=== PATIENT | female | born 1990 | race Caucasian/White ===

== ENCOUNTER → 2018-06-09 | Outpatient (CLI) | payer OTHER, SELFPAY ==
[2018-06-09 09:38] VITALS: BMI 25.4
[2018-06-15 17:57] LABS: HPV Reflexed? NOT INDICATED
== END | disposition home or self-care (01) ==
LOC: LABSPEC 16:24
PROVIDERS: Family Provider Family Medicine Sports Medicine; PCP Family Medicine Sports Medicine; Referring Provider Nurse Practitioner Women's Health; Visit Provider Nurse Practitioner Women's Health
DX: Z12.4 Encounter for screening for malignant neoplasm of cervix (principal)
CPT/HCPCS: 87624; 88175; G0145

== ENCOUNTER → 2019-07-14 12:18 | Outpatient (CLI) | payer OTHER, SELFPAY ==
[2019-07-14 11:55] VITALS: BMI 25.4
[2019-07-14 13:28] LABS: Absolute Lymphocyte Count 2.08 X10^3/uL (0.83-4.51); Absolute Neutrophil Count 5.1 X10^3/uL (2.0-7.7); Basophil# 0.04 X10^3/uL; Basophil% 0.5 % (0-1); Eosinophil# 0.08 X10^3/uL; Hematocrit 44.3 % (37-47); Hemoglobin 14.6 g/dL (12.0-15.0); Lymphocyte # 2.08 X10^3/ul (4.0); Lymphocyte % 26.7 % (19-41); Mean Corpuscular Volume 91.2 fL (81-99); Mean Platelet Vol. 12.6 fl (6.2-12.0); Monocyte# 0.51 X10^3/uL; Monocyte% 6.5 % (0-10); NRBC Flagged by Analyzer 0 % (0-5); Neutrophil # 5.07 X10^3/uL (2.7-7.7); Platelet Count 198 K/mm3 (150-450); RBC Distribution Width CV 12.1 % (11.6-14.6); Red Blood Count 4.86 M/mm3 (4.2-5.4); White Blood Count 7.8 K/mm3 (4.4-11.0)
[2019-07-14 13:53] LABS: Estradiol 78.2 pg/mL; Follicle Stimulating Hormone 6.2 mIU/mL; Prolactin 7.4 ng/mL
[2019-07-19] LABS: Testosterone Free 2.4 pg/mL (0.0-4.2)
[2019-07-21 12:12] LABS: 17-Hydroxyprogesterone 163 ng/dL (.)
== END ==
PROVIDERS: PCP Family Medicine Sports Medicine; Referring Provider Nurse Practitioner Women's Health; Visit Provider Nurse Practitioner Women's Health
DX: L68.0 Hirsutism (principal); N92.6 Irregular menstruation, unspecified
CPT/HCPCS: 36415; 82627; 82670; 83001; 83498; 84146; 84402; 84443; 85025; 82626

== ENCOUNTER → 2019-07-19 13:39 | Outpatient (CLI) | payer OTHER, SELFPAY ==
[2019-07-14 11:55] VITALS: BMI 25.4
--- NOTE | 2019-07-19 13:40 | US_ITS ---
STUDY: ULTRASOUND OF THE FEMALE PELVIS - COMPLETE REASON FOR EXAM: Female, 28 years old. IRREGULAR MENSES LMP: May 05, 2019. TECHNIQUE: Transabdominal and Transvaginal TECHNICAL QUALITY: Adequate. COMPARISON: None. FINDINGS: The uterus is anteverted and is in a midline position. The uterus measures 7.8 cm x 4.9 cm x 3.1 cm. There is a Nabothian cyst of the cervix. The endometrium measures 3.8 mm in thickness, and is hyperechoic. There is no demonstrated endometrial mass. There is no demonstrated myometrial mass. I.U.D. - The patient does not have an I.U.D. The right ovary is visualized. The right ovary measures 4.8 cm x 3.5 cm x 2.8 cm. There is no right ovarian cyst or ovarian mass. There is no visualized right adnexal mass or complex lesion. There is normal arterial and normal venous vascularity. The left ovary is visualized. The left ovary measures 4.3 cm x 2.8 cm x 2.9 cm. There is no left ovarian cyst or ovarian mass. There is no visualized left adnexal mass or complex lesion. There is normal arterial and normal venous vascularity. There is no fluid in the cul-de-sac. The pre void volume of the bladder was 118 ml. Polycystic ovary disease: No. US/Pelvic (Non ) IMPRESSION: Normal female pelvis. Electronically Signed: Sulaiman Johnson, at 14:28 EDT , Service support ,
--- NOTE | 2019-07-19 13:40 | US_ITS ---
STUDY: ULTRASOUND OF THE FEMALE PELVIS - COMPLETE REASON FOR EXAM: Female, 28 years old. IRREGULAR MENSES LMP: May 05, 2019. TECHNIQUE: Transabdominal and Transvaginal TECHNICAL QUALITY: Adequate. COMPARISON: None. FINDINGS: The uterus is anteverted and is in a midline position. The uterus measures 7.8 cm x 4.9 cm x 3.1 cm. There is a Nabothian cyst of the cervix. The endometrium measures 3.8 mm in thickness, and is hyperechoic. There is no demonstrated endometrial mass. There is no demonstrated myometrial mass. I.U.D. - The patient does not have an I.U.D. The right ovary is visualized. The right ovary measures 4.8 cm x 3.5 cm x 2.8 cm. There is no right ovarian cyst or ovarian mass. There is no visualized right adnexal mass or complex lesion. There is normal arterial and normal venous vascularity. The left ovary is visualized. The left ovary measures 4.3 cm x 2.8 cm x 2.9 cm. There is no left ovarian cyst or ovarian mass. There is no visualized left adnexal mass or complex lesion. There is normal arterial and normal venous vascularity. There is no fluid in the cul-de-sac. The pre void volume of the bladder was 118 ml. Polycystic ovary disease: No. US/Transvaginal Non- IMPRESSION: Normal female pelvis. Electronically Signed: Sulaiman Johnson, at 14:28 EDT , Service support ,
== END ==
PROVIDERS: PCP Family Medicine Sports Medicine; Referring Provider Nurse Practitioner Women's Health; Visit Provider Nurse Practitioner Women's Health
DX: N92.6 Irregular menstruation, unspecified (principal); L68.0 Hirsutism
CPT/HCPCS: 76830; 76856

== ENCOUNTER → 2019-08-15 10:21 | Outpatient (CLI) | payer OTHER, SELFPAY ==
[2019-07-14 11:55] VITALS: BMI 25.4
[2019-08-15 10:52] LABS: Absolute Neutrophil Count 5.5 X10^3/uL (2.0-7.7); Basophil# 0.04 X10^3/uL; Basophil% 0.5 % (0-1); Eosinophil# 0.08 X10^3/uL; Eosinophils% 0.9 % (0-5); Hematocrit 41.8 % (37-47); Hemoglobin 13.5 g/dL (12.0-15.0); Mean Corp Hgb Conc 32.3 g/dL (32-36); Mean Corpuscular Volume 92.9 fL (81-99); Mean Platelet Vol. 12.5 fl (6.2-12.0); Monocyte# 0.46 X10^3/uL; Monocyte% 5.3 % (0-10); NRBC Flagged by Analyzer 0 % (0-5); Neutrophil # 5.48 X10^3/uL (2.7-7.7); Neutrophil % 63.1 % (47-70); Platelet Count 180 K/mm3 (150-450); RBC Distribution Width CV 11.9 % (11.6-14.6); RBC Distribution Width SD 40.3 fl (35.1-43.9); White Blood Count 8.7 K/mm3 (4.4-11.0)
[2019-08-15 11:08] LABS: Thyroid Stim Hormone (TSH) 1.56 uIU/mL (0.358-3.74)
== END ==
PROVIDERS: PCP Family Medicine Sports Medicine; Referring Provider Obstetrics & Gynecology; Visit Provider Obstetrics & Gynecology
DX: N92.1 Excessive and frequent menstruation with irregular cycle (principal)
CPT/HCPCS: 36415; 84443; 85025

== ENCOUNTER → 2020-06-13 13:47 | Outpatient (CLI) | payer OTHER, SELFPAY ==
[2020-06-13 13:11] VITALS: BMI 27.8
[2020-06-13 13:59] LABS: Absolute Lymphocyte Count 2.47 X10^3/uL (0.83-4.51); Absolute Neutrophil Count 4.9 X10^3/uL (2.0-7.7); Basophil# 0.05 X10^3/uL; Basophil% 0.6 % (0-1); Eosinophil# 0.07 X10^3/uL; Eosinophils% 0.9 % (0-5); Hematocrit 42.5 % (37-47); Hemoglobin 13.7 g/dL (12.0-15.0); Lymphocyte # 2.47 X10^3/ul (0.83-4.51); Lymphocyte % 30.8 % (19-41); Mean Corp Hgb Conc 32.2 g/dL (32-36); Mean Corpuscular Hgb 29.3 pg (27.0-32.0); Mean Platelet Vol. 12.4 fl (6.2-12.0); Monocyte# 0.54 X10^3/uL; Monocyte% 6.7 % (0-10); NRBC Flagged by Analyzer 0 % (0-5); Neutrophil # 4.85 X10^3/uL (2.7-7.7); Neutrophil % 60.6 % (47-70); POSITIVE MORPHOLOGY YES; Platelet Count 149 K/mm3 (150-450); RBC Distribution Width CV 12.1 % (11.6-14.6); Red Blood Count 4.67 M/mm3 (4.2-5.4)
[2020-06-13 14:01] LABS: Differential Indicated SCAN CRITERIA MET
== END ==
PROVIDERS: PCP Family Medicine Sports Medicine; Referring Provider Nurse Practitioner Women's Health; Visit Provider Nurse Practitioner Women's Health
DX: N93.9 Abnormal uterine and vaginal bleeding, unspecified (principal)
CPT/HCPCS: 36415; 85025

== ENCOUNTER → 2020-06-19 15:47 | Outpatient (CLI) | payer OTHER, SELFPAY ==
[2020-06-13 13:11] VITALS: BMI 27.8
--- NOTE | 2020-06-19 15:51 | US_ITS ---
STUDY: ULTRASOUND OF THE FEMALE PELVIS - COMPLETE REASON FOR EXAM: Female, 29 years old. bleeding-ABN HX PCOS LMP: 06/04/2020 TECHNIQUE: Transabdominal and endovaginal TECHNICAL QUALITY: Adequate. COMPARISON: None. FINDINGS: The uterus is anteverted and is in a midline position. The uterus measures 8.6 x 5.2 x 3.0 cm. Nabothian cyst at the uterine cervix. The endometrium measures 4 mm in thickness, and is hyperechoic. There is no demonstrated endometrial mass. There is no demonstrated myometrial mass. The patient does not have an I.U.D. The right ovary is visualized. The right ovary measures 3.6 x 3.2 x 1.7 cm. There is no right ovarian cyst or ovarian mass. There is no visualized right adnexal mass or complex lesion. There is normal arterial and normal venous vascularity. The left ovary is visualized. The left ovary measures 3.7 x 2.9 x 1.9 cm. There is no left ovarian cyst or ovarian mass. There is no visualized left adnexal mass or complex lesion. There is normal arterial and normal venous vascularity. There is no fluid in the cul-de-sac. The pre void volume of the bladder was 436 ml. US/Pelvic (Non ) IMPRESSION: Normal female pelvis. Electronically Signed: Martinez Vazquez DO at 23:28 EDT Tel [phone], Service support ,
--- NOTE | 2020-06-19 15:51 | US_ITS ---
STUDY: ULTRASOUND OF THE FEMALE PELVIS - COMPLETE REASON FOR EXAM: Female, 29 years old. bleeding-ABN HX PCOS LMP: 06/04/2020 TECHNIQUE: Transabdominal and endovaginal TECHNICAL QUALITY: Adequate. COMPARISON: None. FINDINGS: The uterus is anteverted and is in a midline position. The uterus measures 8.6 x 5.2 x 3.0 cm. Nabothian cyst at the uterine cervix. The endometrium measures 4 mm in thickness, and is hyperechoic. There is no demonstrated endometrial mass. There is no demonstrated myometrial mass. The patient does not have an I.U.D. The right ovary is visualized. The right ovary measures 3.6 x 3.2 x 1.7 cm. There is no right ovarian cyst or ovarian mass. There is no visualized right adnexal mass or complex lesion. There is normal arterial and normal venous vascularity. The left ovary is visualized. The left ovary measures 3.7 x 2.9 x 1.9 cm. There is no left ovarian cyst or ovarian mass. There is no visualized left adnexal mass or complex lesion. There is normal arterial and normal venous vascularity. There is no fluid in the cul-de-sac. The pre void volume of the bladder was 436 ml. US/Transvaginal Non- IMPRESSION: Normal female pelvis. Electronically Signed: Martinez Vazquez DO at 23:28 EDT Tel [phone], Service support ,
== END ==
PROVIDERS: PCP Family Medicine Sports Medicine; Referring Provider Nurse Practitioner Women's Health; Visit Provider Nurse Practitioner Women's Health
DX: N93.9 Abnormal uterine and vaginal bleeding, unspecified (principal)
CPT/HCPCS: 76830; 76856

== ENCOUNTER → 2020-08-13 11:53 | Outpatient (CLI) | payer OTHER, SELFPAY ==
[2020-08-01 08:12] VITALS: BMI 27.8
[2020-08-13 12:09] LABS: Absolute Lymphocyte Count 1.86 X10^3/uL (0.83-4.51); Absolute Neutrophil Count 6.1 X10^3/uL (2.0-7.7); Basophil# 0.04 X10^3/uL; Basophil% 0.5 % (0-1); Eosinophil# 0.05 X10^3/uL; Eosinophils% 0.6 % (0-5); Hematocrit 40.1 % (37-47); Hemoglobin 13.2 g/dL (12.0-15.0); Lymphocyte # 1.86 X10^3/ul (0.83-4.51); Lymphocyte % 21.5 % (19-41); Mean Corp Hgb Conc 32.9 g/dL (32-36); Mean Corpuscular Hgb 29.9 pg (27.0-32.0); Mean Corpuscular Volume 90.7 fL (81-99); Mean Platelet Vol. 11.2 fl (6.2-12.0); Monocyte# 0.55 X10^3/uL; Monocyte% 6.4 % (0-10); NRBC Flagged by Analyzer 0 % (0-5); Neutrophil # 6.11 X10^3/uL (2.7-7.7); Neutrophil % 70.5 % (47-70); POSITIVE MORPHOLOGY YES; Platelet Count 204 K/mm3 (150-450); RBC Distribution Width CV 12.6 % (11.6-14.6); RBC Distribution Width SD 41.8 fl (35.1-43.9); Red Blood Count 4.42 M/mm3 (4.2-5.4); White Blood Count 8.7 K/mm3 (4.4-11.0)
[2020-08-13 12:49] LABS: hCG Titer Quant., Serum 11684 mIU/mL (1-3)
[2020-08-13 13:05] LABS: Differential Indicated SCAN CRITERIA MET
== END ==
PROVIDERS: PCP Family Medicine Sports Medicine; Referring Provider Nurse Practitioner Women's Health; Visit Provider Nurse Practitioner Women's Health
DX: O46.90 Antepartum hemorrhage, unspecified, unspecified trimester (principal); Z3A.00 Weeks of gestation of pregnancy not specified
CPT/HCPCS: 36415; 84702; 85025

== ENCOUNTER → 2020-08-15 12:51 | Outpatient (CLI) | payer OTHER, SELFPAY ==
[2020-08-01 08:12] VITALS: BMI 27.8
--- NOTE | 2020-08-15 12:52 | US_ITS ---
STUDY: FIRST TRIMESTER OBSTETRICAL ULTRASOUND REASON FOR EXAM: Female, 29 years old dating LMP: 07/24/2020 TECHNIQUE: TECHNICAL QUALITY: Adequate. PRIOR ULTRASOUND: None. FINDINGS: There is intrauterine gestational sac with a tiny pole. The crown-rump length measures 0.7 cm, heartbeat is detected measures 120 BPM and this corresponds to about 6 weeks and 5 days. The total length of the uterus is 8.6 x 5.4 x 4.1 cm. The right ovary measures 3.8 x 3.5 x 1.7 cm the left ovary measures 3.6 x 2.2 x 2.3 cm US/Transvaginal w/Preg US IMPRESSION: Evidence of intrauterine gestational sac with a small pole (live) as mentioned. There is some discrepancy between the ultrasound measurement and the LMP. Continuous follow-up. Electronically Signed: Marcus Wills, at 8:30 EDT Tel , Service support ,
== END ==
PROVIDERS: PCP Family Medicine Sports Medicine; Referring Provider Nurse Practitioner Women's Health; Visit Provider Nurse Practitioner Women's Health
DX: Z34.90 Encounter for supervision of normal pregnancy, unspecified, unspecified trimester (principal)
CPT/HCPCS: 76817

== ENCOUNTER → 2020-08-28 15:45 | Outpatient (CLI) | payer OTHER, SELFPAY ==
[2020-08-28 15:10] VITALS: BMI 27.8
[2020-08-28 16:20] LABS: Absolute Lymphocyte Count 2.46 X10^3/uL (0.83-4.51); Basophil# 0.03 X10^3/uL; Basophil% 0.2 % (0-1); Eosinophil# 0.06 X10^3/uL; Eosinophils% 0.4 % (0-5); Hematocrit 39.6 % (37-47); Hemoglobin 13.4 g/dL (12.0-15.0); Lymphocyte # 2.46 X10^3/ul (0.83-4.51); Lymphocyte % 18.3 % (19-41); Mean Corp Hgb Conc 33.8 g/dL (32-36); Mean Corpuscular Hgb 29.8 pg (27.0-32.0); Mean Corpuscular Volume 88.2 fL (81-99); Mean Platelet Vol. 12.7 fl (6.2-12.0); NRBC Flagged by Analyzer 0 % (0-5); Neutrophil # 10.02 X10^3/uL (2.7-7.7); Neutrophil % 74.7 % (47-70); Platelet Count 198 K/mm3 (150-450); Red Blood Count 4.49 M/mm3 (4.2-5.4); White Blood Count 13.4 K/mm3 (4.4-11.0)
[2020-08-29 08:56] LABS: HIV - WCH Non-Reactive (Nonreactive); Hepatitis B Surface Antigen Non-Reactive (Nonreactive); Hepatitis C Antibody Non-Reactive (Nonreactive); Rubella IgG Reactive (Nonreactive); Syphilis Antibodies Non-reactive
[2020-08-31 20:08] LABS: Chlamydia By Nucleic Acid AMP Negative (Negative)
[2020-08-31 20:34] LABS: Gonococcus By Nucleic Acid AMP Negative (Negative)
== END ==
PROVIDERS: PCP Family Medicine Sports Medicine; Referring Provider Obstetrics & Gynecology; Visit Provider Obstetrics & Gynecology
DX: Z34.90 Encounter for supervision of normal pregnancy, unspecified, unspecified trimester (principal)
CPT/HCPCS: 36415; 85025; 86703; 86762; 86780; 86803; 86850; 86900; 86901; 87340; 87491; 87591

== ENCOUNTER → 2020-11-05 14:04 | Outpatient (CLI) | payer OTHER, SELFPAY ==
[2020-11-05 14:08] VITALS: PULSE 86; RESP 16; TEMP 36.4; O2SAT 100; BMI 25.2
[2020-11-05] MEDS: Ondansetron 4 MG/2 ML Vial IV (14:42)
[2020-11-05] MEDS: Dextrose 5%-Lactated Ringers 1,000 ML 999 ML IV (14:42)
[2020-11-05 15:59] VITALS: BP 124/67; PULSE 72
== END ==
PROVIDERS: PCP Family Medicine Sports Medicine; Referring Provider Obstetrics & Gynecology; Visit Provider Obstetrics & Gynecology
DX: E86.0 Dehydration (principal)
CPT/HCPCS: 96361; 96374; J2405

== ENCOUNTER 2020-11-06 09:15 | Emergency (ER) | payer OTHER, SELFPAY ==
[2020-11-06 09:16] VITALS: BP 116/70; PULSE 89; RESP 18; TEMP 37; O2SAT 100; BMI 25.2
--- NOTE | 2020-11-06 09:40 | EDS_ITS ---
HPI History of Present Illness Chief Complaint: Nausea/Vomiting/Diarrhea Narrative Narrative: 29-year-old female currently 17 weeks presenting with nausea, vomiting, diarrhea. She states this has been a problem since Thursday. Patient also states she has developed a slight cough. 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 She has not had a fever or shortness of breath. She denies chest pain or abdominal pain. She has no dysuria but states that she has urinary frequency. Patient was given IV fluids and Zofran yesterday as an outpatient and she states she does not feel any different. She denies any vaginal bleeding or loss of fluid. Patient states she scheduled for an ult rasound this week. [facility] Medical History PCOS (polycystic ovarian syndrome) Home Medications prenat.vits,azar,zhe-yirg-[id number] 1 tab PO DAILY 08/21/20 [History Last Taken Unknown] Allergy/AdvReac Type Severity Reaction Status Date / Time No Known Allergies Allergy Verified 11/06/20 09:20 Family History Father Diabetes Mother Hypertension Grandfather Cancer bladder Surgical History H/O oral surgery Social History adopted: No household members: spouse number of children: 0 current occupational status: employed current occupation: [employer] pets and animals: Yes pets and animals: dog(s) Smoking Status: Never smoker alcohol intake: current alcohol intake frequency: holidays/special occasions only details: none with substance use type: does not use caffeine: No what type of physical activity do you participate in: walking, running and weight training seatbelt use: always do you feel safe at home: Yes additional social history: [employer] 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 ROS ROS ED Constitutional Constitutional ED: Denies chills or fever(s) Eyes Eyes: Denies blurry vision or change in vision ENT ENT ED: Denies rhinorrhea or sore throat Cardiovascular Cardiovascular: Denies chest pain or palpitations Respiratory/Chest Respiratory/Chest: Reports cough; Denies dyspnea or sputum Gastrointestinal Gastrointestinal: Reports diarrhea, nausea and vomiting; Denies abdominal pain Genitourinary Genitourinary ED: Reports urinary frequency; Denies dysuria Musculoskeletal Musculoskeletal: Denies arthralgias or myalgias Integumentary Denies abscess or rash Neurologic Neurologic: Denies headache(s) or paresthesias EXAM Physical Exam Const Vital Signs: 11/06/20 09:16 11/06/20 12:46 Temperature 98.6 F Temperature Source Oral Pulse Rate 89 64 Respiratory Rate 18 18 Blood Pressure 116/70 107/71 Blood Pressure Mean 85 83 Pulse Ox 100 100 Oxygen Delivery Method Room Air Room Air Positive well nourished General Appearance ED: NAD; Negative for pallor HEENT Reports moist mucous membranes Negative for trauma Eyes PERRL and EOMs intact bilaterally Neck no lymphadenopathy and supple Resp normal respiratory effort and clear to auscultation bilaterally GI normal to inspection, nondistended, normoactive bowel sounds Neuro oriented x3 and CN's II-XII intact bilaterally Sensorium / Orientation: alert Psych mental status grossly normal Skin no rashes or lesions noted and no wounds General Skin Exam: Negative for jaundice or pallor MDM MDM MDM Narrative Medical decision making narrative: Patient presenting with nausea and vomiting. She is currently 17 months . She was concerned about diarrhea as well. She was tested for Covid and this was negative. Urinalysis was negative for infection. Patient has no leukocytosis. I did bring to her attention that her hemoglobin was slightly lower than previous 11.5. She stated at that time the time of her last blood work was when she was having some vaginal bleeding. She does not have this issue today. Patient is given IV fluids and Phenergan. She states it has not really helped her nausea but she is hungry now. Bedside ultrasound performed by ED physician shows good movement and a heart rate of 160. Feel patient is safe to be discharged home. She is given return precautions. Impression: 1. Hyperemesis gravidarum Lab Data Labs: Laboratory Results - last 24 hr 11/06/20 11/06/20 11/06/20 09:56 10:00 10:30 WBC 6.7 RBC 3.78 L Hgb 11.5 L Hct 34.2 L MCV 90.5 MCH 30.4 MCHC 33.6 RDW Std Deviation 41.9 RDW Coeff of Sukhjinder 12.8 Plt Count 146 L MPV 12.6 H Immature Gran % (Auto) 0.600 Neut % (Auto) 74.8 H Lymph % (Auto) 14.9 L [place] % (Auto) 9.1 Eos % (Auto) 0.3 Baso % (Auto) 0.3 Absolute Neuts (auto) 5.0 Absolute Lymphs (auto) 1.00 Nucleated RBC % 0 Sodium Potassium Chloride Carbon Dioxide Anion Gap BUN Creatinine Estim Creat Clear Calc Est GFR (MDRD) Af Amer Est GFR (MDRD) Non-Af BUN/Creatinine Ratio Glucose Calcium Total Bilirubin AST ALT Alkaline Phosphatase Total Protein Albumin Globulin Albumin/Globulin Ratio Urine Color Yellow Urine Clarity Sl. Cloudy Urine pH 6.0 Ur Specific [place] 1.025 Urine Protein 30 H Urine Glucose (UA) Normal Urine Ketones 5 H Urine Occult Blood Negative Urine Nitrite Negative Urine Bilirubin Negative Urine Urobilinogen Normal Ur Leukocyte Esterase 100 H COVID-19 (JOVITA) Not Detected 11/06/20 10:30 WBC RBC Hgb Hct MCV MCH MCHC RDW Std Deviation RDW Coeff of Sukhjinder Plt Count MPV Immature Gran % (Auto) Neut % (Auto) Lymph % (Auto) [facility] % (Auto) Eos % (Auto) Baso % (Auto) Absolute Neuts (auto) Absolute Lymphs (auto) Nucleated RBC % Sodium 139 Potassium 3.6 Chloride 107 Carbon Dioxide 23.0 Anion Gap 9 BUN 4 L Creatinine 0.58 Estim Creat Clear Calc 114.21 Est GFR (MDRD) Af Amer 159 Est GFR (MDRD) Non-Af 132 BUN/Creatinine Ratio 6.9 L Glucose 81 Calcium 8.7 Total Bilirubin 0.30 AST 14 L ALT 17 Alkaline Phosphatase 65 Total Protein 6.8 Albumin 2.7 L Globulin 4.1 Albumin/Globulin Ratio 0.7 L Urine Color Urine Clarity Urine pH Ur Specific [place] Urine Protein Urine Glucose (UA) Urine Ketones Urine Occult Blood Urine Nitrite Urine Bilirubin Urine Urobilinogen Ur Leukocyte Esterase COVID-19 (JOVITA) Discharge Plan Triage Chief Complaint: Nausea/Vomiting/Diarrhea ED Provider: Abisai Pringle Dx/Rx/DC Orders Instructions: Anemia During , ED Hyperemesis Gravidarum Prescriptions: No Action prenat.vits,azar,iom-yvxo-eifwp Tablet 1 tab PO DAILY RF: 0 Primary Care Provider: Polina Oconnell Referrals: Polina Oconnell MD [Primary Care Provider] - Disposition Disposition: Home, Self Care Discharge Date/Time: 11/06/20 12:48
[2020-11-06 10:19] LABS: Color, Urine Yellow (Yellow); Glucose, Dipstick Normal (Normal); Ketone-Dipstick 5 mg/dl (Negative); Leukocyte Esterase-Dipstick 100 /ul (Negative); Nitrite-Dipstick Negative (Negative); Occult Blood-Urine Negative /ul (Negative); Protein-Dipstick 30 mg/dl (Negative); Specific Gravity, Urine 1.025 (1.002-1.030); Urine Bilirubin Dipstick Negative (Negative); Urine Clarity Sl. Cloudy (Clear); Urine Urobilinogen Normal (Normal)
[2020-11-06] MEDS: 0.9% Normal Saline 1,000 ML 1000 ML IV (10:32)
[2020-11-06] MEDS: proMETHazine 25 MG/ML Syringe 12.5 MG IM (10:32)
[2020-11-06 10:45] LABS: Basophil# 0.02 X10^3/uL; Basophil% 0.3 % (0-1); Eosinophil# 0.02 X10^3/uL; Eosinophils% 0.3 % (0-5); Hematocrit 34.2 % (37-47); Hemoglobin 11.5 g/dL (12.0-15.0); Lymphocyte % 14.9 % (19-41); Mean Corp Hgb Conc 33.6 g/dL (32-36); Mean Corpuscular Hgb 30.4 pg (27.0-32.0); Mean Corpuscular Volume 90.5 fL (81-99); Mean Platelet Vol. 12.6 fl (6.2-12.0); Monocyte# 0.61 X10^3/uL; Monocyte% 9.1 % (0-10); NRBC Flagged by Analyzer 0 % (0-5); Neutrophil # 5.01 X10^3/uL (2.7-7.7); Neutrophil % 74.8 % (47-70); Platelet Count 146 K/mm3 (150-450); RBC Distribution Width CV 12.8 % (11.6-14.6); RBC Distribution Width SD 41.9 fl (35.1-43.9); Red Blood Count 3.78 M/mm3 (4.2-5.4); White Blood Count 6.7 K/mm3 (4.4-11.0)
[2020-11-06 11:01] LABS: ALB/GLOB Ratio 0.7 RATIO (0.9-2.4); AST(SGOT) 14 U/L (15-37); Alanine Aminotransfer ALT/SGPT 17 U/L (13-56); Albumin, Serum 2.7 g/dL (3.2-5.0); Alkaline Phosphatase 65 U/L (45-117); Anion Gap 9 (5-15); BUN 4 mg/dL (7-18); BUN/Creat Ratio 6.9 RATIO (10-20); Calcium,Total 8.7 mg/dL (8.5-10.1); Chloride 107 mmol/L (98-107); Creatinine, Serum 0.58 mg/dL (0.55-1.02); EST Glomerular Filtration Rate 132 mL/min (>60); Est Glom Filt Rate - Afr Amer 159 mL/min (>60); Estimated Creatinine Clearance 114.21 ml/min; Globulin 4.1 g/dL (2.2-4.2); Glucose 81 mg/dL (74-106); Potassium 3.6 mmol/L (3.5-5.1); Protein, Total 6.8 g/dL (6.4-8.2); Sodium Level 139 mmol/L (136-145)
[2020-11-06 12:46] VITALS: BP 107/71; PULSE 64; RESP 18; O2SAT 100
== END 2020-11-06 12:48 | disposition home or self-care (01) ==
PROVIDERS: Emergency Provider Student in an Organized Health Care Education/Training Program; PCP Family Medicine Sports Medicine
DX: O21.0 Mild hyperemesis gravidarum (principal); Z3A.17 17 weeks gestation of pregnancy
CPT/HCPCS: 80053; 81002; 85025; 87635; 96360; 96361; 96372; 99284; J7030; U0005; A4216; U0003

== ENCOUNTER → 2021-01-21 09:52 | Outpatient (CLI) | payer OTHER, SELFPAY ==
[2021-01-21 10:28] LABS: Absolute Lymphocyte Count 2.11 X10^3/uL (0.83-4.51); Absolute Neutrophil Count 8.6 X10^3/uL (2.0-7.7); Basophil# 0.03 X10^3/uL; Basophil% 0.3 % (0-1); Eosinophil# 0.06 X10^3/uL; Eosinophils% 0.5 % (0-5); Hematocrit 32.9 % (37-47); Hemoglobin 10.9 g/dL (12.0-15.0); Lymphocyte # 2.11 X10^3/ul (0.83-4.51); Lymphocyte % 18.4 % (19-41); Mean Corp Hgb Conc 33.1 g/dL (32-36); Mean Corpuscular Hgb 29.6 pg (27.0-32.0); Mean Corpuscular Volume 89.4 fL (81-99); Monocyte# 0.63 X10^3/uL; Monocyte% 5.5 % (0-10); NRBC Flagged by Analyzer 0 % (0-5); Neutrophil # 8.59 X10^3/uL (2.7-7.7); Neutrophil % 74.7 % (47-70); Platelet Count 158 K/mm3 (150-450); RBC Distribution Width CV 12.4 % (11.6-14.6); RBC Distribution Width SD 40.2 fl (35.1-43.9); Red Blood Count 3.68 M/mm3 (4.2-5.4); White Blood Count 11.5 K/mm3 (4.4-11.0)
[2021-01-21 10:55] LABS: Glucose Challenge Gest 1H 50g 85 mg/dL (70-140)
== END ==
PROVIDERS: PCP Family Medicine Sports Medicine; Referring Provider Obstetrics & Gynecology; Visit Provider Obstetrics & Gynecology
DX: Z34.00 Encounter for supervision of normal first pregnancy, unspecified trimester (principal)
CPT/HCPCS: 36415; 82950; 85025

== ENCOUNTER 2021-02-18 10:32 | Outpatient (CLI) | payer OTHER, SELFPAY ==
[2021-02-18 11:06] VITALS: BMI 27.4
[2021-02-18 11:09] VITALS: BP 104/69; PULSE 88; PULSE 90; TEMP 37.2; O2SAT 98
[2021-02-18] MEDS: Dextrose 5%-Lactated Ringers 1,000 ML 999 ML IV (11:25)
[2021-02-18] MEDS: Ondansetron 4 MG/2 ML Vial IV (11:28)
[2021-02-18 11:37] LABS: Absolute Lymphocyte Count 0.59 X10^3/uL (0.83-4.51); Absolute Neutrophil Count 6.3 X10^3/uL (2.0-7.7); Basophil# 0.02 X10^3/uL; Basophil% 0.3 % (0-1); Eosinophil# 0.01 X10^3/uL; Eosinophils% 0.1 % (0-5); Hematocrit 31.8 % (37-47); Hemoglobin 10.6 g/dL (12.0-15.0); Lymphocyte # 0.59 X10^3/ul (0.83-4.51); Lymphocyte % 7.7 % (19-41); Mean Corp Hgb Conc 33.3 g/dL (32-36); Mean Corpuscular Hgb 29.4 pg (27.0-32.0); Mean Corpuscular Volume 88.1 fL (81-99); Mean Platelet Vol. 12.1 fl (6.2-12.0); Monocyte# 0.74 X10^3/uL; Monocyte% 9.6 % (0-10); NRBC Flagged by Analyzer 0 % (0-5); Neutrophil # 6.27 X10^3/uL (2.7-7.7); Neutrophil % 81.6 % (47-70); POSITIVE DIFFERENTIAL YES; Platelet Count 151 K/mm3 (150-450); RBC Distribution Width CV 12.2 % (11.6-14.6); RBC Distribution Width SD 39.8 fl (35.1-43.9); Red Blood Count 3.61 M/mm3 (4.2-5.4); White Blood Count 7.7 K/mm3 (4.4-11.0)
[2021-02-18 11:40] LABS: Differential Indicated SCAN CRITERIA MET
[2021-02-18 11:51] LABS: ALB/GLOB Ratio 0.5 RATIO (0.9-2.4); AST(SGOT) 21 U/L (15-37); Alanine Aminotransfer ALT/SGPT 20 U/L (13-56); Albumin, Serum 2.4 g/dL (3.2-5.0); Alkaline Phosphatase 122 U/L (45-117); Anion Gap 9 (5-15); BUN 6 mg/dL (7-18); BUN/Creat Ratio 11.9 RATIO (10-20); Calcium,Total 8.8 mg/dL (8.5-10.1); Chloride 105 mmol/L (98-107); EST Glomerular Filtration Rate 153 mL/min (>60); Est Glom Filt Rate - Afr Amer 185 mL/min (>60); Globulin 4.4 g/dL (2.2-4.2); Glucose 74 mg/dL (74-106); Lipase 101 U/L (73-393); Potassium 3.6 mmol/L (3.5-5.1); Protein, Total 6.8 g/dL (6.4-8.2); Sodium Level 136 mmol/L (136-145)
--- NOTE | 2021-02-18 12:30 | NURSING ---
Dr. Lockhart on unit. Aware of lab work results. Notified of Covid positive status. Reviewed FHR strip. Urine specimen has not been collected as patient has not voided. Has taken sips of water and ice chips with no vomiting. Dr. Lockhart would like to see patient tolerating po fluids before sending patient home. Would like patient to start taking one baby aspirin daily until delivery. Patient notified and expresses understanding.
[2021-02-18] MEDS: Lactated Ringers 1,000 ML 200 ML IV (12:34)
[2021-02-18 12:46] LABS: Platelet Estimate ADEQUATE (ADEQ); Red Cell Morphology NORM C+C NORMAL (NORM C&C)
--- NOTE | 2021-02-18 13:27 | OB.TRI.PN_ITS ---
Progress Notes Progress Note: Patient presents for triage evaluation secondary to nausea vomiting, now covid positive FHT: 140 Moderate variability reactive no decelerations category I tracing [place]: no regular Contractions Assessment and plan: covid in , IVFs anti emetics given, tolerating po, dc home on zofran and 81mg asa Reactive NST, reassuring maternal and status patient discharged to home to follow-up as scheduled. See problem list details for additional plan information. Laboratory Studies: Laboratory Tests 02/18/21 02/18/21 Range/Units 11:25 11:25 WBC 7.7 (4.4-11.0) K/mm3 RBC 3.61 L (4.2-5.4) M/mm3 Hgb 10.6 L (12.0-15.0) g/dL Hct 31.8 L (37-47) % MCV 88.1 (81-99) fL MCH 29.4 (27.0-32.0) pg MCHC 33.3 (32-36) g/dL RDW Std Deviation 39.8 (35.1-43.9) fl RDW Coeff of Sukhjinder 12.2 (11.6-14.6) % Plt Count 151 (150-450) K/mm3 MPV 12.1 H (6.2-12.0) fl Immature Gran % (Auto) 0.700 (0.0-0.9) % Neut % (Auto) 81.6 H (47-70) % Lymph % (Auto) 7.7 L (19-41) % [place] % (Auto) 9.6 (0-10) % Eos % (Auto) 0.1 (0-5) % Baso % (Auto) 0.3 (0-1) % Absolute Neuts (auto) 6.3 (2.0-7.7) X10^3/uL Absolute Lymphs (auto) 0.59 L (0.83-4.51) X10^3/uL Nucleated RBC % 0 (0-5) % Differential Comment Platelet Estimate ADEQUATE (ADEQ) RBC Morphology NORM C+C (NORM C&C) NORMAL Sodium 136 (136-145) mmol/L Potassium 3.6 (3.5-5.1) mmol/L Chloride 105 (98-107) mmol/L Carbon Dioxide 22.0 (21.0-32.0) mmol/L Anion Gap 9 (5-15) BUN 6 L (7-18) mg/dL Creatinine 0.50 L (0.55-1.02) mg/dL Estim Creat Clear Calc 131.30 ml/min Est GFR (MDRD) Af Amer 185 (>60) mL/min Est GFR (MDRD) Non-Af 153 (>60) mL/min BUN/Creatinine Ratio 11.9 (10-20) RATIO Glucose 74 (74-106) mg/dL Calcium 8.8 (8.5-10.1) mg/dL Total Bilirubin 0.20 (0.20-1.00) mg/dL AST 21 (15-37) U/L ALT 20 (13-56) U/L Alkaline Phosphatase 122 H (45-117) U/L Total Protein 6.8 (6.4-8.2) g/dL Albumin 2.4 L (3.2-5.0) g/dL Globulin 4.4 H (2.2-4.2) g/dL Albumin/Globulin Ratio 0.5 L (0.9-2.4) RATIO Lipase 101 (73-393) U/L Charges/Coding Procedures Urinary/Genital [id number]: [id number] non-stress test Interp Assessment & Plan (1) COVID-19 affecting , antepartum: COMMENT: seen in triage, IVFs given, ordered zofran. plan 81 mg asa in , growth q 4 weeks.
[2021-02-18] MEDS: proCHLORPERazine 10 MG/2 ML Vial IV (13:47)
[2021-02-18 13:53] LABS: Mucous, Urine 0 SEEN /hpf (<or=2+); Red Blood Cells-Urine 0 SEEN /hpf (0-5)
[2021-02-18 14:00] LABS: Color, Urine Yellow (Yellow); Glucose, Dipstick 1000 mg/dl (Normal); Leukocyte Esterase-Dipstick 100 /ul (Negative); Nitrite-Dipstick Negative (Negative); Occult Blood-Urine Negative /ul (Negative); Protein-Dipstick 15 mg/dl (Negative); Urine Bilirubin Dipstick Negative (Negative); Urine Clarity Sl. Cloudy (Clear); Urine Urobilinogen Normal (Normal); Urine pH 6.5 (5.0 - 8.0)
[2021-02-18 14:07] LABS: Ketone-Dipstick 150 mg/dl (Negative)
[2021-02-18 14:08] LABS: Bacteria 2+ /hpf (None Seen); Squamous Epithelial Cells - UA 0-5 SEEN /hpf (5-10); White Blood Cells 10-25 SEEN /hpf (0-5)
--- NOTE | 2021-02-18 14:37 | NURSING ---
Message left with RN for Dr. Lockhart notifying her of abnormal urine levels. Awaiting call back for further orders.
--- NOTE | 2021-02-18 14:41 | MDS.RN ---
Patient in isolation for COVID. No reading for negative air pressure available. Marco was notified and set up ventilation system in room.
== END 2021-02-18 16:27 | disposition home or self-care (01) ==
LOC: WPOUT 11:03 → WP 11:04
PROVIDERS: PCP Family Medicine Sports Medicine; Referring Provider Obstetrics & Gynecology; Visit Provider Obstetrics & Gynecology
DX: O98.519 Other viral diseases complicating pregnancy, unspecified trimester (principal); U07.1 COVID-19
CPT/HCPCS: 96361; 96374; 96375; 36415; 59025; 59050; 80053; 81001; 83690; 85025; 87086; 87088; 87426; 87635; 99218; J7120; U0005; G0378; J2405; U0003

== ENCOUNTER 2021-02-28 14:22 | Outpatient (CLI) | payer OTHER, SELFPAY ==
[2021-02-28 15:01] LABS: Absolute Lymphocyte Count 1.96 X10^3/uL (0.83-4.51); Absolute Neutrophil Count 8.2 X10^3/uL (2.0-7.7); Basophil# 0.03 X10^3/uL; Basophil% 0.3 % (0-1); Eosinophil# 0.06 X10^3/uL; Eosinophils% 0.5 % (0-5); Hematocrit 34.5 % (37-47); Hemoglobin 11.5 g/dL (12.0-15.0); Lymphocyte # 1.96 X10^3/ul (0.83-4.51); Lymphocyte % 17.7 % (19-41); Mean Corp Hgb Conc 33.3 g/dL (32-36); Mean Corpuscular Hgb 28.8 pg (27.0-32.0); Mean Corpuscular Volume 86.5 fL (81-99); Mean Platelet Vol. 12.3 fl (6.2-12.0); Monocyte# 0.69 X10^3/uL; Monocyte% 6.2 % (0-10); NRBC Flagged by Analyzer 0 % (0-5); Neutrophil # 8.21 X10^3/uL (2.7-7.7); Neutrophil % 74.3 % (47-70); POSITIVE MORPHOLOGY YES; Platelet Count 156 K/mm3 (150-450); RBC Distribution Width CV 12.7 % (11.6-14.6); RBC Distribution Width SD 39.6 fl (35.1-43.9); Red Blood Count 3.99 M/mm3 (4.2-5.4); White Blood Count 11.1 K/mm3 (4.4-11.0)
[2021-02-28 15:27] LABS: Differential Indicated SCAN CRITERIA MET
[2021-02-28 15:36] LABS: Anisocytosis RARE; Platelet Estimate ADEQUATE (ADEQ); Platelet Morphology LARGE; Red Cell Morphology N CHROM NORMAL (NORM C&C)
== END 2021-02-28 23:59 | disposition short-term general hospital (02) ==
LOC: PAVLAB 14:23
PROVIDERS: PCP Family Medicine Sports Medicine; Referring Provider Obstetrics & Gynecology; Visit Provider Obstetrics & Gynecology
DX: O98.519 Other viral diseases complicating pregnancy, unspecified trimester (principal); U07.1 COVID-19; Z3A.00 Weeks of gestation of pregnancy not specified
CPT/HCPCS: 36415; 85025

== ENCOUNTER 2021-03-14 10:06 | Outpatient (CLI) | payer OTHER, SELFPAY ==
--- NOTE | 2021-03-14 10:08 | US_ITS ---
STUDY: SECOND AND THIRD TRIMESTER OBSTETRICAL ULTRASOUND REASON FOR EXAM: Female, 30 years old growth LMP: 07/07/2020. TECHNIQUE: Transabdominal TECHNICAL QUALITY: Adequate. PRIOR ULTRASOUND: Comparison is made with prior examination dated 08/15/2020. FINDINGS: There is a single intrauterine fetus. The fetus is in a cephalic presentation. There is demonstrated cardiac activity with a heart rate of 118 bpm. There is a normal amniotic fluid volume. The largest amniotic fluid pocket measures 4.5 cm. The amniotic fluid index (JORDYN) is 12.1 cm. The placenta is left lateral in location and is not low lying. There are Grade 1 placental changes. The cervix measures 4.1 cm in length. The adnexal regions are not visualized. BIOMETRY: BPD: 8.7 cm: 35 weeks, 2 days HC: 31.3 cm: 35 weeks, 1 days AC: 33.4 cm: 37 weeks, 2 days FL: 7.1 cm: 36 weeks, 3 days CI: 81% FL/BPD: 81% FL/HC: FL/AC: 21% HC/AC: 0.94 age by current US: 36 weeks, 1 days. JERZY by current US: 04/10/2021. Estimated weight: 2962 grams, +/- 433 grams, 72 %. age by prior US: 36 weeks, 6 days. JERZY by prior US: 04/05/2021. Age by LMP: 35 weeks, 5 days. JERZY by LMP: 04/13/2021. US/OB Limited With Biometrics IMPRESSION: Single live intrauterine gestation with a mean gestational age of 36 weeks and 6 days. The measurements obtained today fall within the normal expected range. Electronically Signed: Sulaiman Johnson MD at 11:02 EST , Service support ,
== END 2021-03-14 23:59 | disposition short-term general hospital (02) ==
LOC: US 10:07
PROVIDERS: PCP Family Medicine Sports Medicine; Referring Provider Obstetrics & Gynecology; Visit Provider Obstetrics & Gynecology
DX: O98.519 Other viral diseases complicating pregnancy, unspecified trimester (principal); U07.1 COVID-19
CPT/HCPCS: 76816

== ENCOUNTER 2021-03-22 16:50 | Outpatient (CLI) | payer OTHER, SELFPAY | END 2021-03-22 23:59 | disposition short-term general hospital (02) | LOC: LABSPEC 16:51 | PROVIDERS: PCP Family Medicine Sports Medicine; Visit Provider Obstetrics & Gynecology | DX: Z34.00 Encounter for supervision of normal first pregnancy, unspecified trimester (principal) | CPT/HCPCS: 87081 ==

== ENCOUNTER 2021-03-29 10:49 | Outpatient (CLI) | payer OTHER, SELFPAY ==
--- NOTE | 2021-03-29 10:51 | US_ITS ---
STUDY: OBSTETRICAL ULTRASOUND - BIOPHYSICAL PROFILE REASON FOR EXAM: Female, 30 years old decrease movement LMP: 07/07/2020. PRIOR ULTRASOUND: Comparison is made with prior examination dated 03/14/2021. TECHNIQUE: Transabdominal TECHNICAL QUALITY: Adequate. FINDINGS: There is a single intrauterine fetus. The fetus is in a cephalic presentation. There is demonstrated cardiac activity with a heart rate of 142 bpm. There is a normal amniotic fluid volume. The largest amniotic fluid pocket measures 3.8 cm. The amniotic fluid index (JORDYN) is 12.06 cm. The placenta is posterior and left lateral in location and is not low lying. There are Grade 1 placental changes. Age by LMP: 37 weeks, 6 days. JERZY by LMP: 04/13/2021. BIOPHYSICAL PROFILE: Breathing Movements (FBM): 2 Gross Body Movements (GBM): 2 Tone (FT): 2 Amniotic Fluid Volume (AFV): 2 TOTAL SCORE: 8 / 8 US/Biophysical Prof W/O Non Stres IMPRESSION: Normal biophysical profile of 8/8. Electronically Signed: Sulaiman Johnson MD at 12:26 EST ,
== END 2021-03-29 23:59 | disposition short-term general hospital (02) ==
LOC: US 10:50
PROVIDERS: PCP Family Medicine Sports Medicine; Referring Provider Obstetrics & Gynecology; Visit Provider Obstetrics & Gynecology
DX: O36.8190 Decreased fetal movements, unspecified trimester, not applicable or unspecified (principal)
CPT/HCPCS: 76819

== ENCOUNTER 2021-04-09 14:55 | Inpatient (IN) | payer OTHER, SELFPAY ==
[2021-04-09] VITALS (33 sets, daily range): BP systolic 107–154; BP diastolic 56–85; PULSE 65–119; TEMP 36.1–36.7; O2SAT 99–100; BMI 29.5
[2021-04-09] MEDS: Lactated Ringers 500 ML 999 ML IV ×3 (15:05→16:52)
[2021-04-09] MEDS: Lactated Ringers 1,000 ML 50 ML IV (15:05)
[2021-04-09 15:16] LABS: Absolute Lymphocyte Count 2.28 X10^3/uL (0.83-4.51); Absolute Neutrophil Count 13.8 X10^3/uL (2.0-7.7); Basophil# 0.03 X10^3/uL; Basophil% 0.2 % (0-1); Eosinophil# 0.02 X10^3/uL; Eosinophils% 0.1 % (0-5); Hemoglobin 12.7 g/dL (12.0-15.0); Lymphocyte # 2.28 X10^3/ul (0.83-4.51); Lymphocyte % 13.4 % (19-41); Mean Corp Hgb Conc 33.4 g/dL (32-36); Mean Corpuscular Hgb 29.3 pg (27.0-32.0); Mean Corpuscular Volume 87.6 fL (81-99); Mean Platelet Vol. 12.8 fl (6.2-12.0); Monocyte# 0.76 X10^3/uL; Monocyte% 4.5 % (0-10); NRBC Flagged by Analyzer 0 % (0-5); Neutrophil # 13.79 X10^3/uL (2.7-7.7); Neutrophil % 81.1 % (47-70); Platelet Count 140 K/mm3 (150-450); RBC Distribution Width CV 13.3 % (11.6-14.6); RBC Distribution Width SD 42.4 fl (35.1-43.9); Red Blood Count 4.34 M/mm3 (4.2-5.4)
--- NOTE | 2021-04-09 16:01 | HP.PCM.OB_ITS ---
HPI - General General Date of Admission: 04/09/21 HPI Narrative PJ SUN, is a 30 F who presents in active labor regular contractions may change to 4 cm dilated. She denies any loss of fluid admits good movement. She is wanting an epidural. Maternal Data Information JERZY Calculator Estimated Delivery Date Method Current WG Current Estimate 04/13/21 Ultrasound #2 39w 3d Other Estimates 04/05/21 Ultrasound #1 40w 4d PFSH PFSH Medical History Anemia PCOS (polycystic ovarian syndrome) Home Medications prenat.vits,azar,wlw-nzhm-cqxbi 1 tab PO DAILY 08/21/20 [History Last Taken 04/08/21 06:00] ondansetron HCl [Zofran] 4 mg PO 4X/DAY PRN PRN #30 tab 02/18/21 [Rx Last Taken Unknown] aspirin 81 mg chewable tablet 81 mg PO DAILY 02/28/21 [History Last Taken 04/08/21 06:00] Allergy/AdvReac Type Severity Reaction Status Date / Time No Known Allergies Allergy Verified 04/09/21 14:48 Family History Father Diabetes Mother Hypertension Grandfather Cancer bladder Surgical History H/O oral surgery Social History adopted: No household members: spouse number of children: 0 current occupational status: employed current occupation: 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 History 1 Elective abortions Hx Para 0 Spontaneous abortions Hx # Term Pregnancies Ectopic pregnancies Hx # Pregnancies Multiple births # of living children Visit Details Expected Delivery Route/Plan Labor Preferences- labor support person: Boogie labor intervention preferences: no specific pain management options preferred: epidural cut cord/dad catch: yes : yes PP control planned: discussed possible routes of delivery and associated risks: [] special requests: [] Plans covid status: non immune counseled regarding risk of covid in vs vaccination and declined vaccination flu vaccine: decline tdap vaccine: given rhogam: na LARC form signed: movement and labor precautions reviewed. Problem list reviewed and updated with the most current plan of care details and appropriate orders placed. Relevant counseling for the gestational age provided. Continue routine care and follow up unless otherwise noted in visit notes/problem list details OB Flowsheet Initial Weight: 150 lb Date -?-?-?-?-?-?-?-?-?-?-?-?- EGA Weight BP Urine Prot -?-?-?-?-?-?-?-?-?-?-?-?- Glucose FHR FuHt Pres Dilation -?-?-?-?-?-?-?-?-?-?-?-?- Effaced St Visit Note 08/28/20 -?-?-?-?-?-?-?-?-?-?-?-?- 7w 3d 152 lb (+2 lb) 132/80 -?-?-?-?-?-?-?-?-?-?-?-?- 150 -?-?-?-?-?-?-?-?-?-?-?-?- SM- CRL cons wit h LMP SM- CRL 1.2 cons with LMP SM- CRL 1.2 cm NOT cons with LMP 09/14/20 -?-?-?-?-?-?-?-?-?-?-?-?- 9w 6d 146 lb (-4 lb) Negative -?-?-?-?-?-?-?-?-?-?-?-?- Negative 180 -?-?-?-?-?-?-?-?-?-?-?-?- SM- no vb lof he matoma resolve 10/11/20 -?-?-?-?-?-?-?-?-?-?-?-?- 13w 5d 143 lb 6 oz (-6 lb 10 oz) 120/80 Negative -?-?-?-?-?-?-?-?-?-?-?-?- Negative 157 -?-?-?-?-?-?-?-?-?-?-?-?- GP - Denies blee ding. +cramping - minimal today but was worse overnight. Reviewed normal pain and concerning pain in GP - Denies bleeding. +cramp ing - minimal today but was worse overnight. R ogiewed normal pain and concerning pain in . Anatomy ordered 11/09/20 -?-?-?-?-?-?-?-?-?-?-?-?- 17w 6d 143 lb (-7 lb) 110/64 Negative -?-?-?-?-?-?-?-?-?-?-?-?- Negative 145 -?-?-?-?-?-?-?-?-?-?-?-?- SM- no vb crampi ng 12/07/20 -?-?-?-?-?-?-?-?-?-?-?-?- 21w 6d 147 lb (-3 lb) 116/60 Negative -?-?-?-?-?-?-?-?-?-?-?-?- Negative 140 -?-?-?-?-?-?-?-?-?-?-?-?- SM- no vb crampi ng 01/01/21 -?-?-?-?-?-?-?-?-?-?-?-?- 25w 3d 148 lb (-2 lb) 110/72 Negative -?-?-?-?-?-?-?-?-?-?-?-?- Negative 145 25 -?-?-?-?-?-?-?-?-?-?--?-?- SM- no vb lof go od fm no reuglar ctx 02/01/21 -?-?-?-?-?-?-?-?-?-?-?-?- 29w 6d 155 lb 4 oz (+5 lb 4 oz) 130/78 Negative -?-?-?-?-?-?-?-?-?-?-?-?- Negative 135 28 -?-?-?-?-?-?-?-?-?-?-?-?- JV- no lof ,vagi nal bleeding or cramping. pt upset as I was late entering room today by 29 minutes. No other complaints. JV- no lof ,v aginal bleedin g ,or dec fm. no complaints today. declines flu and covid vaccines 02/28/21 -?-?-?-?-?-?-?-?-?-?-?-?- 33w 5d 151 lb (+16 oz) 110/70 -?-?-?-?-?-?-?-?-?-?-?-?- 155 34 -?-?-?-?-?-?-?-?-?-?-?-?- SM- no vb lof go od fm no reuglar ctx SM- no vb lof good fm no reu glar ctxstill having nause and vomiting, severe fatigue. 03/14/21 -?-?-?-?-?-?-?-?-?-?-?-?- 35w 5d 159 lb 6 oz (+9 lb 6 oz) 130/82 Negative -?-?-?-?-?-?-?-?-?-?-?-?- Negative 144 35 -?-?-?-?-?-?-?-?-?-?-?-?- JV- no lof, vagi nal bleeding, or dec fm. larc form signed JV- no lof, vaginal bleeding , or dec fm. larc form signed. growth scan was normal 71% 03/22/21 -?-?-?-?-?-?-?-?-?-?-?-?- 36w 6d 160 lb (+10 lb) 126/88 Negative -?-?-?-?-?-?-?-?-?-?-?-?- Negative 125 37 1 -?-?-?-?-?-?-?-?-?-?-?-?- 70 -2 JV- no lof , vaginal bleeding, or dec fm, GBS collected 03/29/21 -?-?-?-?-?-?-?-?-?-?-?-?- 37w 6d 162 lb (+12 lb) 128/80 Negative -?-?-?-?-?-?-?-?-?-?-?-?- Negative 130 -?-?-?-?-?-?-?-?-?-?--?-?- SM- no vb lof no regular ctx co dec fm, will get BPP, reactive nst here. 04/02/21 -?-?-?-?-?-?-?-?-?-?-?-?- 38w 3d 163 lb (+13 lb) 132/82 -?-?-?-?-?-?-?-?-?-?-?-?- 130 38 2 -?-?-?-?-?-?-?-?-?-?-?-?- 70 -2 SM- no vb lof still co some decreased movement SM- no vb lof still co some decreased movement but now feeling much more and reactive NST. discussed kick counts, fu 1 week.consider IOL if persistent 04/08/21 -?-?-?-?-?-?-?-?-?-?-?-?- 39w 2d 163 lb (+13 lb) 124/86 Negative -?-?-?-?-?-?-?-?-?-?-?-?- Negative -?-?-?-?-?-?-?-?-?-?-?-?- 04/09/21 -?-?-?-?-?-?-?-?-?-?-?-?- 39w 3d 161 lb 6.054 oz (+11 lb 6.054 oz) 126/79 -?-?-?-?-?-?-?-?-?-?-?-?- -?-?-?-?-?-?-?-?-?-?-?-?- NST FHR Rate Baby A Baseline: 140 Variability:: Moderate Accelerations:: 15 x 15 Decelerations:: None NST Reactive:: Yes FHR Category:: Category I Uterine Activity:: q3-5 ROS Constitutional Constitutional: Reports systems reviewed and no addt'l complaints, except as documented ENT HEENT: Reports systems reviewed and no addt'l complaints, except as documented Cardiovascular Cardiovascular: Reports systems reviewed and no addt'l complaints, except as documented Respiratory/Chest Respiratory/Chest: Reports systems reviewed and no addt'l complaints, except as documented Gastrointestinal Gastrointestinal: Reports systems reviewed and no addt'l complaints, except as documented and nausea; Denies abdominal pain Genitourinary Genitourinary: Reports systems reviewed and no addt'l complaints, except as documented, contractions Details: present and frequency (regular ) and movement Details: present Musculoskeletal Musculoskeletal: Reports systems reviewed and no addt'l complaints, except as documented Integumentary Integumentary: Reports as per HPI Neurologic Neurologic: Reports systems reviewed and no addt'l complaints, except as documented Endocrine Endocrinology: Reports systems reviewed and no addt'l complaints, except as documented Vital Signs Vital Signs Vital Signs: 04/09/21 14:45 04/09/21 14:46 Temperature 98.0 F Pulse Rate 71 77 Blood Pressure 126/79 H BP Systolic 126 BP Diastolic 79 Pulse Ox 100 100 Weight Weight: 161 lb 6.054 oz Body Mass Index (BMI) 29.5 Physical Exam Const alert, oriented x3 and healthy appearing Constitutional Narrative: uncomfortable with contractions HEENT normocephalic and moist oral mucous membranes Head and Scalp: atraumatic Neck full ROM, no lymphadenopathy, supple and thyroid normal General: trachea midline Thyroid: thyroid normal Lymph Lymphatic: no lymphadenopathy noted Chest inspection of chest normal Resp normal respiratory effort Cardio regular rate GI normal to inspection, nondistended, normoactive bowel sounds, soft to palpation and non-tender Inspection: gravid external exam normal Bimanual Exam - Vag & Uterus: uterus non-tender Manual OB Exam: estimated gestational size appropriate, presentation cephalic, dilated, effaced and station Extremity normal to inspection General Extremity: Negative for edema Skin no rashes or lesions noted Neuro deep tendon reflexes 2+ bilaterally Motor Exam: strength 5/5 throughout and clonus absent Psych mental status grossly normal Labs Labs Labs: Blood Type O POSITIVE Antibody Screen NEGATIVE Hct 38.0 % (37-47) Hgb 12.7 g/dL (12.0-15.0) Pap Smear Negative Obstetrics US Syphilis Total Ab Non-reactive Rubella IgG Antibody Reactive (Nonreactive) Hep Bs Antigen Non-Reactive (Nonreactive) Neisseria gonorrhoeae DNA (JOVITA) Negative (Negative) HIV 1&2 Antibody Non-Reactive (Nonreactive) Glucose 1 Hr 50 gm 85 mg/dL (70-140) Assessment & Plan (1) Active labor at term: COMMENT: Epidural now AROM as needed Pitocin if labor stalls (2) Anemia: COMMENT: add daily Fe (3) COVID-19 affecting , antepartum: COMMENT: seen in triage, IVFs given, ordered zofran. plan 81 mg asa in , growth q 4 weeks. (4) Supervision of normal first : COMMENT: PRR JERZY 04/13/21 girl (surprise name) Spouse Boogie (5) : QUALIFIERS: Weeks of gestation: 39 weeks Qualified Code(s): Z3A.39 - 39 weeks gestation of COMMENT: GBS neg. nl anatomy, declines genetic and carrier screen, 36 wk US normal
[2021-04-09] MEDS: Ondansetron 4 MG/2 ML Vial IV ×2 (16:12→21:15)
[2021-04-09] MEDS: fentaNYL-bupivacaine (epidural) 100 ML BAG EPIDURAL ×2 (16:43→20:57)
[2021-04-09] MEDS: Amnioinfusion- 0.9% NS 1,000 ML IV.SOLN. INTRA-UTER (17:05)
[2021-04-09] MEDS: Lactated Ringers 1,000 ML 200 ML IV (20:57)
[2021-04-09] MEDS: 0.9% Saline Lock 10 ML Syringe IV (21:15)
[2021-04-09] MEDS: Oxytocin 30 units/NS 500 ml 30 UNITS/500 ML IV.SOLN 334 UNITS IV (22:40)
--- NOTE | 2021-04-09 22:59 | OP.PCM_ITS ---
Assessment & Plan (1) Active labor at term: COMMENT: Epidural now AROM as needed Pitocin if labor stalls (2) Anemia: COMMENT: add daily Fe (3) COVID-19 affecting , antepartum: COMMENT: seen in triage, IVFs given, ordered zofran. plan 81 mg asa in , growth q 4 weeks. (4) Supervision of normal first : COMMENT: PRR JERZY 04/13/21 girl (surprise name) Spouse Boogie (5) : QUALIFIERS: Weeks of gestation: 39 weeks Qualified Code(s): Z3A.39 - 39 weeks gestation of COMMENT: GBS neg. nl anatomy, declines genetic and carrier screen, 36 wk US normal (6) Vaginal delivery: COMMENT: 90 sec shoulder dystocia SM girl Kovie 39 IAL (7) Shoulder dystocia during labor and delivery: COMMENT: 90 sec mild-mod kyle medeiros, recommend 36 week growth scan and IOL at 39 with next equal or smaller EFW Maternal Data Information JERZY Calculator Estimated Delivery Date Method Current WG Current Estimate 04/13/21 Ultrasound #2 39w 3d Other Estimates 04/05/21 Ultrasound #1 40w 4d Vaginal Delivery Operative Information Date of Procedure: 04/09/21 Pre-Operative Diagnosis: IAL Post-Operative Diagnosis: same Surgery / Procedure Performed: Spontaneous Vaginal Delivery Type of Anesthesia: Epidural Special Medications: none Estimated Blood Loss: 100 Fluids Replaced: crystalloid Findings Description of Procedure: Patient began pushing and delivered the head in the HENRI presentation. The head was delivered atraumatically and a loose nuchal cord ?1 was identified and the infant delivered through without complication. There was a moderate shoulder dystocia that was encountered with Tejal position utilized and the shoulders were noted to be coming down in a cockeyed position and therefore would screw maneuver was employed to rotate the anterior shoulder [id number] and then it was able to be dislodged within 90 seconds and the anterior and posterior shoulders delivered without complication followed by the rest of the and the infant was placed on the maternal abdomen. Delayed c ord clamping was employed for approximately 60 seconds. Cord was clamped and cut and gentle traction was applied to the cord and the placenta delivered spontaneously immediately following it was noted to be intact with three-vessel cord. The perineum and vagina were inspected and noted to have a first-degree perineal laceration that was repaired in the usual fashion with 3-0 Vicryl Rapide. EBL was 100 cc. Patient and tolerated delivery well. Presentation: ROSA Amniotic Membrane Rupture Type: Artificial Amniotic Fluid Description: Clear Placental Delivery Description: Spontaneous Placenta Disposition: [facility] Cord Vessel Description: 3 Vessels Cord Entanglement: None Delayed Cord Clamping: Yes Post Vaginal Delivery Medications Given After Delivery: IV Pitocin Episiotomy Description: None Laceration: Perineal Extension/lac and 1st degree Complication Complications: None Procedures Urinary/Genital [id number]: [id number] Vaginal Delivery [facility]
--- NOTE | 2021-04-09 23:03 | PCM.DC ---
Discharge Instructions Diet Discharge Diet: No restrictions Activity Discharge Activity: Return to Normal Activity, May Not Drive (while taking narcotic pain medications.) and May Shower May resume sexual activity in: 4-6 weeks Dressing / Incision Call your doctor if your incision/area has: Continuous Slow Oozing, Sudden Increased Bleeding, Increased Pain/ Swelling, Increased Redness and Foul Smelling Discharge Follow Up Care Please Follow Up With: Cassandra Lockhart MD When: Call [phone] to make an appointment with your doctor in 6 weeks. If you had elevated blood pressure or 4th degree laceration, you will need to be seen in 2 weeks. Test Results: Test results from this visit will be discussed in further detail at your follow-up appointment, if applicable. Discharge Plan Admission Admit Date/Time: 04/09/21 14:55 Attending Provider: Cassandra Lockhart Primary Care Provider: Polina Oconnell Discharge Orders/Prescriptions Prescriptions: No Action prenat.vits,azar,tuq-ulsb-ylooi Tablet 1 tab PO DAILY RF: 0 aspirin 81 mg tablet,chewable 81 mg PO DAILY RF: 0 ondansetron HCl [Zofran] 4 MG tablet 4 mg PO 4X/DAY PRN PRN (Reason: Nausea) Qty: 30 RF: 2 Referrals / Follow Up: Polina Oconnell MD [Primary Care Provider] - Disposition Disposition (needs filled in before D/C Order can be placed): Home, Self Care
[2021-04-10] VITALS (16 sets, daily range): BP systolic 105–134; BP diastolic 55–73; PULSE 70–98; RESP 16–18; TEMP 36.6–37.3
[2021-04-10] MEDS: 0.9% Saline Lock 10 ML Syringe IV (01:36)
[2021-04-10] MEDS: Naproxen 500 MG Tablet PO ×3 (01:36→17:36)
[2021-04-10] MEDS: Benzocaine/Lanolin/Aloe Vera 1 SPRAY EACH TOPICAL (01:37)
[2021-04-10] MEDS: Acetaminophen 500 MG Tablet 1000 MG PO (04:29)
[2021-04-10] MEDS: Senna/Docusate Sodium 1 Tablet PO (04:31)
--- NOTE | 2021-04-10 07:52 | PCM.PN.OB ---
Subjective Subjective Patient doing well without complaints. Tolerating PO. Ambulating and voiding without difficulty. Feeding well. Denies chest pain, shortness of breath, calf pain/swelling, fevers, chills, lightheadedness. Objective Data Objective Data Vital Signs: Vital Signs Temp Pulse Resp BP Pulse Ox 99.1 F 94 18 134/63 H 100 04/10/21 03:13 04/10/21 03:13 04/10/21 03:13 04/10/21 03:13 04/09/21 22:14 Weight: 161 lb 6.054 oz Body Mass Index (BMI) 29.5 Intake & Output: Intake and Output for Last 24 Hours 04/08/21 04/09/21 04/10/21 23:59 23:59 23:59 Intake Total 2810.17 / 2810.17 278.33 / 278.33 Output Total 100 / 100 750 / 750 Balance 2710.17 / 2710.17 -471.67 / -471.67 Lab / Micro Data Result Diagrams: 04/09/21 15:05 Labs: Laboratory Results - last 24 hr 04/09/21 15:05: WBC 17.0 H, RBC 4.34, Hgb 12.7, Hct 38.0, MCV 87.6, MCH 29.3, MCHC 33.4, RDW Std Deviation 42.4, RDW Coeff of Sukhjinder 13.3, Plt Count 140 L, MPV 12.8 H, Immature Gran % (Auto) 0.700, Neut % (Auto) 81.1 H, Lymph % (Auto) 13.4 L, [place] % (Auto) 4.5, Eos % (Auto) 0.1, Baso % (Auto) 0.2, Absolute Neuts (auto) 13.8 H, Absolute Lymphs (auto) 2.28, Nucleated RBC % 0 04/09/21 15:05: Blood Type O POSITIVE, Antibody Screen NEGATIVE Micro: Microbiology 04/09/21 15:15 Nasal Secretion SARS-CoV-2 Antigen (Rapid) - Final Physical Exam Const alert and oriented x3 HEENT normocephalic Eyes PERRL Neck full ROM Resp normal respiratory effort GI soft to palpation GI Narrative: FF below U Assessment & Plan (1) Vaginal delivery: COMMENT: 90 sec shoulder dystocia SM girl Kovie 39 IAL PLAN: s/p PPD # 1 1. routine post delivery care 2. breast feeding- support given 3. rh positive 4. rubella immune 5. IV has been dc'd. force fluids and continue to monitor output as was borderline, nurse aware.
[2021-04-11 02:16] VITALS: BP 118/75; PULSE 83; O2SAT 98
[2021-04-11 02:18] VITALS: BP 118/75; PULSE 81; RESP 18; TEMP 36.6; O2SAT 98
[2021-04-11] MEDS: Naproxen 500 MG Tablet PO (04:42)
[2021-04-11 08:07] VITALS: BP 109/61; PULSE 78
[2021-04-11 08:08] VITALS: PULSE 78; O2SAT 98
[2021-04-11 08:15] VITALS: BP 109/61; PULSE 66; RESP 16; TEMP 36.8; O2SAT 98
[2021-04-11] MEDS: Hydrocortisone 2.5% Crm 1 APPLIC TOPICAL (09:44)
[2021-04-11] MEDS: Benzocaine/Lanolin/Aloe Vera 1 SPRAY EACH TOPICAL (12:44)
[2021-04-11] MEDS: Senna/Docusate Sodium 1 Tablet PO (12:44)
[2021-04-11 12:46] VITALS: BP 125/76; PULSE 85; PULSE 86; RESP 16; TEMP 36.7; O2SAT 99
--- NOTE | 2021-04-11 14:26 | PCM.PN.OB ---
Subjective Subjective Patient doing well without complaints. Tolerating PO. Ambulating and voiding without difficulty. feeding well. Denies chest pain, shortness of breath, calf pain/swelling, fevers, chills, lightheadedness. Objective Data Objective Data Vital Signs: Vital Signs Temp Pulse Resp BP Pulse Ox 98.1 F 86 16 125/76 H 99 04/11/21 12:46 04/11/21 12:46 04/11/21 12:46 04/11/21 12:46 04/11/21 12:46 Oxygen Delivery Method Room Air Weight: 161 lb 6.054 oz Body Mass Index (BMI) 29.5 Intake & Output: Intake and Output for Last 24 Hours 04/09/21 04/10/21 04/11/21 23:59 23:59 23:59 Intake Total 2810.17 / 2810.17 278.33 / 278.33 Output Total 100 / 100 750 / 750 Balance 2710.17 / 2710.17 -471.67 / -471.67 Lab / Micro Data Result Diagrams: 04/09/21 15:05 Micro: Microbiology 04/09/21 15:15 Nasal Secretion SARS-CoV-2 Antigen (Rapid) - Final ROS Constitutional Constitutional: Reports systems reviewed and no addt'l complaints, except as documented Cardiovascular Cardiovascular: Reports systems reviewed and no addt'l complaints, except as documented Respiratory/Chest Respiratory/Chest: Reports systems reviewed and no addt'l complaints, except as documented Gastrointestinal Gastrointestinal: Reports systems reviewed and no addt'l complaints, except as documented Physical Exam Const alert, oriented x3 and no apparent distress HEENT Head and Scalp: atraumatic Resp normal respiratory effort GI soft to palpation and non-tender Bimanual Exam - Vag & Uterus: uterus non-tender Uterus Palpation: uterus fundus firm (below Umbilicus) Assessment & Plan (1) Vaginal delivery: COMMENT: 90 sec shoulder dystocia SM girl Kovie 39 IAL shirt
--- NOTE | 2021-04-11 14:33 | NURSING ---
This RN has reviewed and agrees with all charting by SN Roxie
== END 2021-04-11 14:05 | disposition home or self-care (01) | DRG 807 ==
LOC: WPOUT 15:02 → WP 16:23
PROVIDERS: Admitting Provider Obstetrics & Gynecology; PCP Family Medicine Sports Medicine; Visit Provider Obstetrics & Gynecology
DX: O66.0 Obstructed labor due to shoulder dystocia (principal); Z37.0 Single live birth; O69.81X0 Labor and delivery complicated by cord around neck, without compression, not applicable or unspecified; O70.0 First degree perineal laceration during delivery; O99.02 Anemia complicating childbirth; Z3A.39 39 weeks gestation of pregnancy; Z79.82 Long term (current) use of aspirin; Z86.16 Personal history of COVID-19
CPT/HCPCS: 59025; 59050; 85025; 86850; 86900; 86901; 87426; 99218; J7030; J7120; A4216; G0378; J2405

== ENCOUNTER 2021-05-24 16:30 | Outpatient (CLI) | payer OTHER, SELFPAY ==
[2021-06-04 17:07] LABS: HPV Reflexed? NOT INDICATED
== END 2021-05-24 23:59 | disposition home or self-care (01) ==
LOC: LABSPEC 16:31
PROVIDERS: PCP Family Medicine Sports Medicine; Visit Provider Obstetrics & Gynecology
DX: Z12.4 Encounter for screening for malignant neoplasm of cervix (principal)
CPT/HCPCS: 88175; G0145

== ENCOUNTER → 2023-02-11 | Outpatient (CLI) | payer OTHER, SELFPAY ==
[2023-02-11 15:18] LABS: hCG Titer Quant., Serum 7773 mIU/mL (1-3)
== END | disposition home or self-care (01) ==
PROVIDERS: PCP Family Medicine Sports Medicine; Referring Provider Obstetrics & Gynecology; Visit Provider Obstetrics & Gynecology
DX: N91.2 Amenorrhea, unspecified (principal)
CPT/HCPCS: 36415; 84702

== ENCOUNTER → 2023-02-13 | Outpatient (CLI) | payer OTHER, SELFPAY ==
[2023-02-13 15:54] LABS: hCG Titer Quant., Serum 16050 mIU/mL (1-3)
== END | disposition home or self-care (01) ==
LOC: LAB 14:24
PROVIDERS: PCP Family Medicine; Referring Provider Advanced Practice Midwife; Visit Provider Advanced Practice Midwife
DX: N92.0 Excessive and frequent menstruation with regular cycle (principal)
CPT/HCPCS: 36415; 84702

== ENCOUNTER → 2023-03-10 | Outpatient (CLI) | payer OTHER, SELFPAY ==
--- OUTSIDE RECORDS SUMMARY | 2023-03-10 17:49 | XMS RPT_ITS | CCD ---
Author Name Unknown Address [address] [place] [address] Organization [facility] Care Team Providers Care Quality Assurance Project Manager Name Role Phone LEATHA GRIFFITHS Attending MIGUEL Benavides Primary Care Unavailable Problems Problem Classification Problem Date Documented Da te Episodic/Chronic Nonspecific chest pain (1 source) Chest pain, unspecified; Translations: [Chest pain, unspecified type] Onset: 08-20-2022 Episodic Results Test Name Value Interpretation Reference Range Facil ity Encounters Encounter Date Encounter Type Care Provider Facility Start: 08-20-2022 End: 08-20-2022 Emergency department patient visit LEATHA PRADEEP GRIFFITHS Facility:[facility] Payers Date Payer Category Payer Unknown [id number] Summary Purpose Family History No Family History Records Found Advance Directives No Advanced Directives Records Found Additional Source Comments INFORMATION SOURCE (unrecogn ized section and content) FOR RECORDS PERTAINING TO PATIENTS WHO ARE OR HAVE BEEN ENROLLED IN A CHEMICAL DEPENDENCY/SUBSTANCEABUSE PROGRAM, SOME INFORMATION MAY BE OMITTED. This clinical summary was aggregated from multiple sources. Caution should be exercised in using it in the provision of clinical care. This summary normalizes information from multiple sources, and as a consequence, information in this document may materially change the coding, format and clinical context of patient data. In addition, data may be omitted in some cases. CLINICAL DECISIONS SHOULD BE BASED ON THE PRIMARY CLINICAL RECORDS. [employer] provides no warranty or guarantee of the accuracy or completeness of information in this document.
[2023-03-13 04:07] LABS: Chlamydia By Nucleic Acid AMP Negative (Negative); Gonococcus By Nucleic Acid AMP Negative (Negative)
== END | disposition home or self-care (01) ==
LOC: LABSPEC 16:29
PROVIDERS: PCP Family Medicine; Referring Provider Obstetrics & Gynecology; Visit Provider Obstetrics & Gynecology
DX: Z34.90 Encounter for supervision of normal pregnancy, unspecified, unspecified trimester (principal); Z3A.00 Weeks of gestation of pregnancy not specified
CPT/HCPCS: 87086; 87491; 87591

== ENCOUNTER → 2023-03-27 | Outpatient (CLI) | payer OTHER, SELFPAY ==
[2023-03-27 15:24] LABS: Absolute Lymphocyte Count 2.34 X10^3/uL (0.83-4.51); Absolute Neutrophil Count 7.6 X10^3/uL (2.0-7.7); Basophil# 0.04 X10^3/uL; Basophil% 0.4 % (0-1); Eosinophil# 0.04 X10^3/uL; Eosinophils% 0.4 % (0-5); Hematocrit 36.5 % (37-47); Hemoglobin 11.9 g/dL (12.0-15.0); Lymphocyte # 2.34 X10^3/ul (0.83-4.51); Lymphocyte % 22.2 % (19-41); Mean Corp Hgb Conc 32.6 g/dL (32-36); Mean Corpuscular Hgb 28.7 pg (27.0-32.0); Mean Corpuscular Volume 88.2 fL (81-99); Mean Platelet Vol. 12.6 fl (6.2-12.0); Monocyte# 0.53 X10^3/uL; NRBC Flagged by Analyzer 0 % (0-5); Neutrophil # 7.57 X10^3/uL (2.7-7.7); Neutrophil % 71.7 % (47-70); Platelet Count 165 K/mm3 (150-450); RBC Distribution Width CV 12.5 % (11.6-14.6); RBC Distribution Width SD 40.4 fl (35.1-43.9); Red Blood Count 4.14 M/mm3 (4.2-5.4); White Blood Count 10.6 K/mm3 (4.4-11.0)
--- OUTSIDE RECORDS SUMMARY | 2023-03-27 17:38 | XMS RPT_ITS | CCD ---
Author Name Unknown Address [address] [place] [address] Organization [facility] Care Team Providers Care Cotton Chopper Name Role Phone LEATHA GRIFFITHS Attending MIGUEL [...] Emergency department patient visit LEATHA PRADEEP GRIFFITHS Facility:[facility] Payers Date Payer Category Payer Unknown [id number] Summary Purpose Family History No Family History [...] BE BASED ON THE PRIMARY CLINICAL RECORDS. [employer] provides no warranty or guarantee of the accuracy or completeness of information in this document.
[2023-03-27 18:28] LABS: HIV - WCH Non-Reactive (Nonreactive); Hepatitis B Surface Antigen Non-Reactive (Nonreactive); Hepatitis C Antibody Non-Reactive (Nonreactive); Rubella IgG Reactive (Nonreactive); Syphilis Antibodies Non-reactive
== END | disposition home or self-care (01) ==
LOC: LAB 14:42
PROVIDERS: PCP Family Medicine; Referring Provider Obstetrics & Gynecology; Visit Provider Obstetrics & Gynecology
DX: Z34.90 Encounter for supervision of normal pregnancy, unspecified, unspecified trimester (principal); Z3A.00 Weeks of gestation of pregnancy not specified
CPT/HCPCS: 36415; 85025; 86703; 86762; 86780; 86803; 86850; 86900; 86901; 87340

== ENCOUNTER 2023-04-24 12:06 | Outpatient (CLI) | payer OTHER, SELFPAY ==
[2023-04-24 12:18] VITALS: BP 127/75; PULSE 93; RESP 16; TEMP 36.5; O2SAT 98; BMI 28.3
[2023-04-24] MEDS: Dextrose 5%-Lactated Ringers 1,000 ML 999 ML IV (12:28)
--- OUTSIDE RECORDS SUMMARY | 2023-04-24 12:28 | XMS RPT_ITS | CCD ---
Author Name Unknown Address [address] [place] [address] Organization [facility] Care Team Providers Care Hand Coremaker Name Role Phone TUNDE LEATHA FERNÁNDEZ Attending MIGUEL Benavides Primary Care Unavailable Problems Problem Classification Problem Date Documented Da te Episodic/Chronic Nonspecific chest pain (1 source) Chest pain, unspecified; Translations: [Chest pain, unspecified type] Onset: 08-20-2022 Episodic Results Test Name Value Interpretation Reference Range Facil ity Encounters Encounter Date Encounter Type Care Provider Facility Start: 08-20-2022 End: 08-20-2022 Emergency department patient visit LEATHA PRADEEP GRIFFITHS Facility:[facility] Payers Date Payer Category Payer Unknown [id number] Summary Purpose Family History No Family History [...] BE BASED ON THE PRIMARY CLINICAL RECORDS. [employer] provides no warranty or guarantee of the accuracy or completeness of information in this document.
[2023-04-24] MEDS: 0.9% NaCl Peripheral Flush Adult/Peds IV (12:56)
[2023-04-24] MEDS: Ondansetron 4 MG/2 ML Vial IV (12:57)
[2023-04-24 13:35] VITALS: BP 103/55; PULSE 85; RESP 16; TEMP 36.8; O2SAT 100
== END 2023-04-24 12:07 | disposition home or self-care (01) ==
LOC: MEDOUTP 12:07
PROVIDERS: PCP Family Medicine; Referring Provider Registered Nurse; Visit Provider Registered Nurse
DX: E86.0 Dehydration (principal)
CPT/HCPCS: 96374; 96361; A4216; J2405

== ENCOUNTER → 2023-07-23 | Outpatient (CLI) | payer OTHER, SELFPAY ==
[2023-07-23 17:09] LABS: Glucose Challenge Gest 1H 50g 91 mg/dL (70-140)
== END | disposition home or self-care (01) ==
LOC: LAB 15:26
PROVIDERS: PCP Family Medicine; Referring Provider Obstetrics & Gynecology; Visit Provider Obstetrics & Gynecology
DX: O09.90 Supervision of high risk pregnancy, unspecified, unspecified trimester (principal); Z3A.00 Weeks of gestation of pregnancy not specified; Z13.1 Encounter for screening for diabetes mellitus
CPT/HCPCS: 36415; 82950

== ENCOUNTER → 2023-09-11 | Outpatient (CLI) | payer OTHER, SELFPAY ==
--- NOTE | 2023-09-11 10:15 | US_ITS ---
STUDY: SECOND AND THIRD TRIMESTER OBSTETRICAL ULTRASOUND - LIMITED REASON FOR EXAM: Female, 32 years old History of shoulder dystocia LMP: PRIOR ULTRASOUND: 03/10/2023 TECHNIQUE: Transabdominal TECHNICAL QUALITY: Adequate. FINDINGS: There is a single intrauterine fetus. The fetus is in a cephalic presentation. There is demonstrated cardiac activity with a heart rate of 157 bpm. There is a normal amniotic fluid volume. The largest amniotic fluid pocket measures 6.6 cm. The amniotic fluid index (JORDYN) is 13.8 cm. The placenta is anterior in location and is not low lying. There are Grade 2 placental changes. The cervix measures cm in length. BIOMETRY: BPD: 8.5 cm: 34 weeks, 2 days HC: 30.9 cm: 34 weeks, 4 days AC: 33.4 cm: 37 weeks, 2 days FL: 6.9 cm: 35 weeks, 2 days Age by LMP: weeks, days. JERZY by LMP: . age by prior US: 36 weeks, 1 days. JERZY by prior US: 10/08/2023. age by current US: 35 weeks, 1 days. JERZY by current US: 10/15/2023. Estimated weight: 2916 grams, +/- 437 grams, 58 percentile. Gender: US/OB Limited With Biometrics IMPRESSION: Living intrauterine of 35 weeks 1 day as described above. Electronically Signed: Nile Mirza MD at 11:26 EDT ,
== END | disposition home or self-care (01) ==
PROVIDERS: PCP Family Medicine; Referring Provider Obstetrics & Gynecology; Visit Provider Obstetrics & Gynecology
DX: O09.299 Supervision of pregnancy with other poor reproductive or obstetric history, unspecified trimester (principal); Z3A.00 Weeks of gestation of pregnancy not specified
CPT/HCPCS: 76816

== ENCOUNTER 2023-10-02 14:26 | Inpatient (IN) | payer OTHER, SELFPAY ==
[2023-10-02] VITALS (14 sets, daily range): BP systolic 114–133; BP diastolic 71–92; PULSE 70–90; RESP 16; TEMP 36.1–36.3; O2SAT 80–100; BMI 31.1
[2023-10-02] MEDS: Lactated Ringers 1,000 ML 999 ML IV (15:07)
[2023-10-02] MEDS: Acetaminophen 500 MG Tablet 1000 MG PO ×2 (15:13→22:09)
[2023-10-02 15:20] LABS: Absolute Lymphocyte Count 2.17 X10^3/uL (0.83-4.51); Absolute Neutrophil Count 11.9 X10^3/uL (2.0-7.7); Basophil# 0.04 X10^3/uL; Basophil% 0.3 % (0-1); Eosinophil# 0.02 X10^3/uL; Eosinophils% 0.1 % (0-5); Hematocrit 35.4 % (37-47); Hemoglobin 11.2 g/dL (12.0-15.0); Lymphocyte # 2.17 X10^3/ul (0.83-4.51); Lymphocyte % 14.4 % (19-41); Mean Corp Hgb Conc 31.6 g/dL (32-36); Mean Corpuscular Hgb 26.2 pg (27.0-32.0); Mean Corpuscular Volume 82.9 fL (81-99); Mean Platelet Vol. 12.2 fl (6.2-12.0); Monocyte# 0.67 X10^3/uL; Monocyte% 4.5 % (0-10); NRBC Flagged by Analyzer 0 % (0-5); Neutrophil # 11.93 X10^3/uL (2.7-7.7); Neutrophil % 79.2 % (47-70); POSITIVE MORPHOLOGY YES; Platelet Count 229 K/mm3 (150-450); RBC Distribution Width CV 13.5 % (11.6-14.6); RBC Distribution Width SD 40.4 fl (35.1-43.9); Red Blood Count 4.27 M/mm3 (4.2-5.4); White Blood Count 15.1 K/mm3 (4.4-11.0)
[2023-10-02 15:22] LABS: Differential Indicated SCAN CRITERIA MET
[2023-10-02] MEDS: Lactated Ringers 1,000 ML 150 ML IV (15:57)
[2023-10-02] MEDS: Sodium Citrate/Citric Acid 30 ML UDC PO (15:57)
[2023-10-02] MEDS: Cefazolin 2 GM in 0.9% Normal Saline (100mL Bag) 100 ML IV (16:02)
[2023-10-02 16:04] LABS: Syphilis Antibodies Non-reactive
[2023-10-02 16:30] LABS: Differential Comment SCANNED
[2023-10-02] MEDS: Ketorolac 30 MG/ML Syringe IV ×2 (17:00→23:29)
--- NOTE | 2023-10-02 17:04 | HP.PCM_ITS ---
History and Physical Date of Admission: 10/02/23 Vital Signs 09/24/2409:52 10/01/2409:00 10/01/2409:01 Height 5 ft 2 in 5 ft 2 in 5 ft 2 in Weight: 171 lb BMI 31.2 BP 107/70 Intake Visit Reasons: 38 WK OB Director Fraud Required: No Is patient in pain?: No Allergies No Known Allergies Allergy (Verified 10/02/23 10:00) Medications ?Medication ?Instructions ?Recorded ?Confirmed ?Type multivitamin no.47-iron fum 27 1 cap PO 03/06/23 10/02/23 History mg-folate no.1 1 mg-dha 300 mg capsule (PNV-DHA) ondansetron 4 mg disintegrating 4 mg PO Q6H PRN nausea and 04/03/23 10/02/23 Rx tablet vomiting #60 tabs Last Menstrual Period: 01/11/23 Zika: Zika virus screening: Negative : No Have you fallen in the past year?: No PFSH PFSH Medical History PMDD (premenstrual dysphoric disorder) Anemia PCOS (polycystic ovarian syndrome) Surgical History H/O oral surgery Family History Father Diabetes Type 1Mother HypertensionGrandfather Cancer bladder Social History adopted: No household members: spouse and children number of children: 1 current occupational status: employed 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 [employer] pets and animals: Yes pets and animals: dog(s) history of recent travel: No sexually active: Yes Smoking Status: Never smoker alcohol intake: current alcohol intake frequency: holidays/special occasions only details: none with substance use type: does not use well-balanced diet: daily or most days caffeine: No eating out: rarely or never during the past year weight has: remained stable what type of physical activity do you participate in: walking, running and weight training kofi/voodoo: Faith seatbelt use: always do you feel safe at home: Yes additional social history: [employer]og[employer] LEIGH 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 Date Name GA/Weeks Outcome Route Bth Weight Gen Labor Lgth Anesthesia Del Locatn Provider FOB 04/09/21 Alfred 39 live - full term 7lbs 9 ou nces Male [facility] Chantelle Hyman Delivery Date: 04/09/21 Last Updated by: Giselle Hoffmann IOL shoulder dystocia HPI 38 WK OB Details: PJ SUN is a 32 year old who presents for primary low transverse c section seconary to history of shoulder dystocia. OB Visit JERZY Calculator Estimated Delivery Date Method Current WG Current Estimate 10/08/23 LMP (Certain) 39w 1d Other Estimates 10/10/23 Ultrasound #1 38w 6d Estimated Due Date: 10/08/23 Expected Delivery Route/Plan Labor Preferences- CB/BF classes: [] labor support person: [] labor intervention preferences: pain management options preferred: epidural cut cord/dad catch: cut cord. : [] PP control planned: [] discussed possible routes of delivery and associated risks: , OVD, c/s special requests: [] Specific Issue/Plans Covid status: [] Flu vaccine: [] Tdap vaccine: declined Rhogam: na LARC form signed: declined movement and labor precautions reviewed. Problem list reviewed and updated with the most current plan of care details and appropriate orders placed. Relevant counseling for the gestational age provided. Continue routine care and follow up unless otherwise noted in visit notes/problem list details Initial Weight: Not Recorded Date -?-?-?-?-?-?-?-?-?-?-?-?- EGA Weight BP Urine Prot -?-?-?-?-?-?-?-?-?-?-?-?- Glucose FHR FuHt Pres Dilation -?-?-?-?-?-?-?-?-?-?-?-?- Effaced St Visit Note 03/10/23-?-?-?-?-?-?-?-?-?-?-?-?- 9w 5d 168 lb 2 oz 122/76 -?-?-?-?-?-?-?-?-?-?-?-?- 180 -?-?-?-?-?-?-?-?-?--?-?-?- JV- CRL consistent with LMP. has either a small CONCHITA vs blood vessel close to cervix. avoid intercourse due to bleeding last time had sex. and rto in 2 weeks for follow up scan. JV- CRL consistent with LMP. has either a small CONCHITA vs blood vessel close to cervix. avoid intercourse due to bleeding last time had sex. and rto in 2 weeks for follow up scan. Declines NIPT 03/27/23-?-?-?-?-?-?-?-?-?-?-?-?- 12w 1d 164 lb 115/80 Negative -?-?-?-?-?-?-?-?-?-?-?-?- Negative 163 -?-?-?-?-?-?-?-?-?-?-?-?- KW- decrease N/V. over all feeling well. no vb/cramping. MFM US ordered. appears CONCHITA resolved. 04/24/23-?-?-?-?-?-?-?-?-?-?-?-?- 16w 1d 156 lb 138/86 1+ -?-?-?-?-?-?- ?-?-?-?-?-?- Negative 145 -?-?-?-?-?-?-?-?-?-?-?-?- LC- no vb/cramping. n/v since last night, unable to keep anything down. obtaining IV fluids outpt. with zofran. 05/22/23-?-?-?-?-?-?-?-?-?-?-?-?- 20w 1d 159 lb 106/70 Negative -?-?-?-?-?-?-?-?-?-?-?-?- Negative 150 20 -?-?-?-?-?-?-?-?-?-?-?-?- KW- no vb/cramping. + flutters. reviewed US. Discussed fresh test for glucose challenge 06/17/23-?-?-?-?-?-?-?-?-?-?-?-?- 23w 6d 162 lb 2 oz 120/73 -?-?-?-?-?-?-?-?-?-?-?-?- 140 25 -?-?-?-?-?-?-?-?-?-?-?-?- KW- no vb.lof/ctx. good fm. 28 week labs discussed. 07/23/23-?-?-?-?-?-?-?-?-?-?-?-?- 29w 0d 166 lb 108/68 Negative -?-?-?-?-?-?-?-?-?-?-?-?- Negative 140 30 -?-?-?-?-?-?-?-?-?-?--?-?- KW- no vb/lof/ctx. good fm. LARC and Tdap declined. labs pending 08/05/23-?-?-?-?-?-?-?-?-?-?-?-?- 30w 6d 166 lb 2 oz 121/76 Negative -?-?-?-?-?--?-?-?-?-?-?-?- Negative 145 31 -?-?-?-?-?-?-?-?-?-?-?-?- JV- discussion today about vaginal delivery for h/o shoulder dystocia. we discussed risk factors and she does not have really any at this point other than her history. (no obesity, dm, and we discussed not inducing if possible) 08/19/23-?-?-?-?-?-?-?-?-?-?-?-?- 32w 6d 169 lb 115/72 -?-?-?-?-?-?-?-?-?-?-?-?- 140 34 -?-?-?-?-?-?-?-?-?-?-?-?- SM- no vb lof good fm no regular ctx 09/04/23-?-?-?-?-?-?-?-?-?-?-?-?- 35w 1d 170 lb 6 oz 135/90 Negative -?-?-?-?-?-?-?-?-?-?-?-?- Negative 140 35 -?-?-?-?-?-?-?-?-?-?-?-?- KW- no vb/lof/ctx. good fm. KW- no vb/lof/ctx. good fm. growth scan next thursday09/17/23-?-?-?-?-?-?-?-?-?-?-?-?- 37w 0d 172 lb 2 oz 120/76 Negative -?-?-?-?-?-?-?-?-?-?-?-?- Negative 142 37 Cephalic 1-?-?-?-?-?-?-?-?-?- ?-?-?- 50 -3 JV- no lof, vaginal bleed ing, or dec fm. gbs collected. 09/25/23-?-?-?-?-?-?-?-?-?-?-?-?- 38w 1d 170 lb 2 oz 124/84 Negative -?-?-?-?-?-?-?-?-?-?-?-?- Negative 135 38 Cephalic 1.5-?-?-?-?-?-?-?-?- ?-?-?-?- 50 -3 LC- no vb/ctx/lof. good f m. gbs positive. LC- no vb/ctx/lof. good fm. gbs positive. reviewed hx of SD, growth at 58%. offered 39 week IOL, pt declines and desires to go naturally into labor. will consider membrane sweep at 40 weeks. r/b/a reviewed in detail. declines iol today. 10/02/23-?-?-?-?-?-?-?-?-?-?-?-?- 39w 1d 171 lb 107/70 Negative -?-?-?-?-?-?-?-?-?-?-?-?- Negative 130 38 -?-?-?-?-?-?-?-?-?-?-?-?- SM- discussed with patient EFW is now greater than her last SM- discussed with patient EFW is now greater than her last at [facility], recommend primary due to moderate shoulder dystocia with last delivery, patient agreeable. Menstrual History Last Menstrual Period: 01/11/23 ACOG First Trimester First Trimester: Desire for , Alcohol, Tobacco Cessation, Illicit/Recreational Drug/Substance Use, Intimate Partner Violence, Barriers to care, Unstable Housing, Communication Barriers, Environmental/Work Hazards, Anticipated Course of Care, Toxoplasmosis Precations, Use of Any medications, Sexual activity, Exercise, Dental Care, Sauna/Hot tub use, Seat Belt use, Childbirth classes/Hospital facilities, Travel, Indications for Ultrasound and Screening for Aneuploidy; Discussed Second Trimester Second Trimester: Signs and Symptoms of Labor, Selecting a care provider, Reproductive Life Planning & Contreception, Care Planning, Tobacco Cessation, Depression/Anxiety and Intimate Partner Violence ROS Const Reports system reviewed and no additional complaints, except as documented Card Reports system reviewed and no additional complaints, except as documented Resp Reports system reviewed and no additional complaints, except as documented GI Reports system reviewed and no additional complaints, except as documented and Reports nausea Reports system reviewed and no additional complaints, except as documented Musc Reports system reviewed and no additional complaints, except as documented Exam Const General: cooperative, healthy appearing, comfortable and anxious HENMT Head: normal to inspection Nose: external nose normal Face and sinus: normal facial exam Neck Neck: normal visual inspection, full ROM and no lymphadenopathy Thyroid: thyroid normal Chest Chest palpation & inspection: normal inspection of the chest Resp Effort & Inspection: normal respiratory effort GI Inspection: normal to inspection Palpation: soft and other (gravid uterus) Other: infant vertex and appropriate size for gestational age Other: Cervical Exam: Extrem General: pedal edema Results POC Urinalysis 2 Dip (Clinic) Office Urine Glucose Negative Last Edit by Jossy Byrnes on 10/02/23 10:04 Office Urine Protein Negative Last Edit by Jossy Byrnes on 10/02/23 10:04 Coding Level of Care Code OB Routine Diagnoses Positive GBS test B95.1 History of shoulder dystocia Supervision of high-risk O09.90 38 weeks gestation of Z3A.38 Weeks of gestation: 38 weeks Anemia D64.9 Assessment and Plan Assessment and Plan (1) Positive GBS test: Status: Acute Comment: PCN in labor. (2) History of shoulder dystocia: Status: Acute Comment: growth US 36 weeks. 58% (3) Supervision of high-risk : Status: Acute Comment: PRR , ,JERZY 10/08/23, Devang BASSETT Alfred, Boogie (4) : Status: Acute Qualifiers: Weeks of gestation: 38 weeks Qualified Code(s): Z3A.38 - 38 weeks gestation of Comment: normal anatomy. discussed genetic & carrier testing (5) Anemia: Status: Acute Comment: add daily Fe discussed risk of recurrent shoulder dystocia and permanent neurological injury, i recommend proceeding with primary . patient agrees. After discussing the patient's diagnosis and treatment plan options, patient wishes to proceed with surgical management. I have discussed with the patient the risks, benefits, and alternatives of the procedure which include but are not limited to risks of anesthesia, bleeding, infection, possible damage to bowel, bladder, or surrounding vasculature which could lead to additional surgery to evaluate any complications. Patient agrees to procedure and wishes to proceed. ACOG/uptodate references given for additional information regarding procedure. Orders: UPDATE- I have seen the patient and performed any clinically relevant updates to the history and physical exam. Cassandra Lockhart MD
--- NOTE | 2023-10-02 17:06 | OP.PCM_ITS ---
Maternal Data Information JERZY Calculator Estimated Delivery Date Method Current Current Estimate 10/08/23 LMP (Certain) 39w 1d Other Estimates 10/10/23 Ultrasound #1 38w 6d Final JERZY Source: LMP Details Operative Information Date of Procedure: 10/02/23 Pre-Operative Diagnosis: history of shoulder dystocia Post-Operative Diagnosis: same Indications Narrative: Surgeon: Cassandra Lockhart MD Classification: Scheduled Procedure Type: low transverse cotton ginner #1: Gideon Zarate Type of Anesthesia: Spinal Special Medications: none Antibiotic Given: Ancef 2 grams IV x1 Drain: Vaughn to straight drain Estimated Blood Loss: 500 Fluids Replaced: crystalloid Procedure Start Time: 16:27 Procedure Stop Time: 16:55 Findings Description of Procedure: Spinal anesthesia was placed without difficulty. Vaughn catheter was placed. The patient was placed in the dorsal supine position with leftward tilt. Patient was prepped and draped in the normal sterile fashion. Pfannenstiel skin incision was made with the scalpel and carried through to the underlying layer of fascia with the scalpel. Fascia was nicked in the midline and the incision extended laterally. The rectus bellies were dissected off superiorly and inferiorly with out complication both sharply and bluntly. The peritoneum was entered digitally. The incision was stretched and a low transverse uterine incision was made with the scalpel. The 's head was delivered atraumatically followed by the anterior and posterior shoulders without complication the rest of the delivered. The cord was clamped and cut and the infant was handed off to awaiting nurse. The placenta was delivered spontaneously immediately following and was noted to be intact and have a three-vessel cord. The uterus was exteriorized cleared of all clots and debris, and the incision was closed in a double layer closure using #1 Monocryl. The ovaries and fallopian tubes were noted to be within normal limits. The uterus was returned to the maternal abdomen and gutters were cleared of all clots and debris. The peritoneum was closed with 3-0 Monocryl in a running fashion. Gloves were changed prior to fascial closure. Fascia was closed with 0 PDS in a running fashion. Subcutaneous tissue was copiously irrigated and the skin was closed with 3-0 Monocryl in a subcuticular fashion. Mepilex dressing was applied without complication. Patient was taken to recovery in stable condition. It was discussed with the patient that based on the clinical information obtained during this encounter, combined with her history, at this time I would recommend cesareans for future deliveries if further pregnancies are desired. Amniotic Membrane Rupture Type: Artificial Amniotic Fluid Description: Clear Placenta Disposition: [facility] Cord Vessel Description: 3 Vessels Delayed Cord Clamping: Yes Complications Risks of Surgery Discussed w/Patient: Bleeding, Infection, Need for Future C- Sections and Injury to surrounding structure(s) including bowel and bladder Vaginal Delivery Complication Complications: None Admit VTE Documentation VTE Present on Admission: No VTE Mechan Device Prophylaxis: SCD's Procedures Urinary/Genital [id number]: [id number] Delivery [facility]
--- NOTE | 2023-10-02 17:08 | DCINST_ITS ---
Discharge Instructions Diet Discharge Diet: No restrictions Activity Discharge Activity: May Not Drive (for 2 weeks or while taking narcotic pain medications.), May Shower and May Take a Tub Bath (in 7 days) May shower in (days): 0 May resume sexual activity in: 4-6 weeks Weight Bearing Status: Full weight bearing Lifting Restrictions: 20 pounds Dressing / Incision Call your doctor if your incision/area has: Continuous Slow Oozing, Sudden Increased Bleeding, Increased Pain/ Swelling, Increased Redness and Foul Smelling Discharge Call your doctor if you observe: Fever of 101 or Higher and Using more than 1 pad per hour (for 2 hours) Suture Line Care: Avoid Pulling/Pushing and Avoid Pinching/Bending Cleanse incision/area with: Soap & Water and Keep Dressing Clean & Dry Follow Up Care Please Follow Up With: Cassandra Lockhart MD When: Call [phone] to make an appointment for an incision check in 1-2 weeks. Test Results: Test results from this visit will be discussed in further detail at your follow- up appointment, if applicable. Discharge Plan Admission Admit Date/Time: 10/02/23 14:26 Attending Provider: Cassandra Lockhart Primary Care Provider: Jenna Vigil Discharge Orders/Prescriptions Prescriptions: New oxycodone-acetaminophen [Percocet] 5-325 mg tablet 1 tab PO Q6H PRN (Reason: pain) 7 Days Qty: 20 0RF naproxen 500 mg tablet 500 mg PO BID PRN PRN (Reason: Pain) Qty: 30 1RF No Action PNV-DHA 27 mg iron-1 mg -300 mg capsule 1 cap PO ondansetron 4 mg tablet,disintegrating 4 mg PO Q6H PRN (Reason: nausea and vomiting) Qty: 60 0RF Referrals / Follow Up: Jenna Vigil MD [Primary Care Provider] - Disposition Disposition (needs filled in before D/C Order can be placed): Home, Self Care
[2023-10-02] MEDS: Oxytocin 15 Units/NS 250ml 15 UNITS/250 ML IV.SOLN 83 UNITS IV (17:10)
[2023-10-02] MEDS: Lactated Ringers 1,000 ML 100 ML IV (21:55)
[2023-10-02] MEDS: 0.9% Saline Lock 10 ML Syringe IV (23:29)
[2023-10-03 02:30] VITALS: BP 115/84; PULSE 80; RESP 16; TEMP 36.4; O2SAT 99
[2023-10-03 04:20] VITALS: BP 100/66; PULSE 76; RESP 16; TEMP 36.2; O2SAT 97
[2023-10-03] MEDS: Acetaminophen 500 MG Tablet 1000 MG PO ×4 (04:26→23:45)
[2023-10-03] MEDS: Ketorolac 30 MG/ML Syringe IV ×2 (05:30→11:30)
[2023-10-03] MEDS: Enoxaparin 40 MG/0.4 ML Syringe SC (05:31)
[2023-10-03] MEDS: 0.9% Saline Lock 10 ML Syringe IV (05:31)
[2023-10-03 08:45] VITALS: BP 114/75; PULSE 80; RESP 16; TEMP 36.3; O2SAT 98
--- NOTE | 2023-10-03 09:00 | PN.OBGYN_ITS ---
Subjective Subjective Patient doing well without complaints. Tolerating PO. Ambulating and voiding without difficulty. Feeding well. Denies chest pain, shortness of breath, calf pain/swelling, fevers, chills, lightheadedness. Objective Data Objective Data Vital Signs: Vital Signs Temp Pulse Resp BP Pulse Ox O2 Del Method 97.2 F L 76 16 100/66 97 Room Air 10/03/23 04:20 10/03/23 04:20 10/03/23 04:20 10/03/23 04:20 10/03/23 04:20 10/03/23 04:20 Oxygen Delivery Method Room Air Weight: 170 lb Body Mass Index (BMI) 31.1 Intake & Output: Intake and Output for Last 24 Hours 10/01/23 10/02/23 10/03/23 23:59 23:59 23:59 Intake Total 1641 / 1641 Output Total 750 / 750 950 / 950 Balance 891 / 891 -950 / -950 Lab / Micro Data 10/02/23 15:02 Labs: Laboratory Results - last 24 hr 10/02/23 13:02: Blood Type O POSITIVE, Antibody Screen NEGATIVE 10/02/23 15:02: WBC 15.1 H, RBC 4.27, Hgb 11.2 L, Hct 35.4 L, MCV 82.9, MCH 26.2 L, MCHC 31.6 L, RDW Std Deviation 40.4, RDW Coeff of Sukhjinder 13.5, Plt Count 229, M PV 12.2 H, Immature Gran % (Auto) 1.500 H, Neut % (Auto) 79.2 H, Lymph % (Auto) 14.4 L, Sully % (Auto) 4.5, Eos % (Auto) 0.1, Baso % (Auto) 0.3, Absolute Neuts (auto) 11.9 H, Absolute Lymphs (auto) 2.17, Nucleated RBC % 0, Differential Comment SCANNED, Syphilis Total Ab Non-reactive Physical Exam Const alert and oriented x3 Eyes PERRL Neck full ROM Lymph Lymphatic: no lymphadenopathy noted Chest inspection of chest normal and inspection of breasts normal Resp normal respiratory effort and normal air movement Effort and Inspection: able to speak in complete sentences Auscultation: clear to auscultation bilaterally Cardio regular rate and regular rhythm GI normal to inspection, nondistended, normoactive bowel sounds Uterus Palpation: uterus fundus firm Back/Spine no CVA tenderness Extremity normal to inspection, full ROM, no calf tenderness and no pedal edema Skin no rashes or lesions noted Skin Narrative: dressing c/d/i Psych mental status grossly normal Assessment & Plan (1) delivery delivered: COMMENT: LTCS history of shoulder dystocia 7lb 11 oz girl [place] (2) History of shoulder dystocia: COMMENT: growth US 36 weeks. 58% PLAN: Plan s/p LTCS PPD # 1 1. routine post care 2. breast feeding- support given 3. rh positive 4. rubella immune
[2023-10-03] MEDS: Senna/Docusate Sodium 1 Tablet PO (10:55)
[2023-10-03] MEDS: Lactated Ringers 1,000 ML 100 ML IV (11:00)
[2023-10-03 12:10] VITALS: BP 109/77; PULSE 82; RESP 16; TEMP 36.5; O2SAT 99
[2023-10-03 17:17] VITALS: BP 120/89; PULSE 86; RESP 16; TEMP 36.3; O2SAT 99
[2023-10-03] MEDS: Naproxen 500 MG Tablet PO (17:42)
[2023-10-03 19:55] VITALS: BP 135/83; PULSE 93; RESP 16; TEMP 36.7; O2SAT 100
[2023-10-04 02:16] VITALS: BP 113/76; PULSE 76; RESP 16; TEMP 36.8
[2023-10-04] MEDS: Naproxen 500 MG Tablet PO ×2 (02:16→08:59)
[2023-10-04] MEDS: Acetaminophen 500 MG Tablet 1000 MG PO (05:15)
[2023-10-04] MEDS: Enoxaparin 40 MG/0.4 ML Syringe SC (05:15)
[2023-10-04 05:42] LABS: Hematocrit 28.3 % (37-47); Hemoglobin 8.8 g/dL (12.0-15.0); Mean Corp Hgb Conc 31.1 g/dL (32-36); Mean Corpuscular Hgb 26.1 pg (27.0-32.0); Mean Platelet Vol. 12.2 fl (6.2-12.0); Platelet Count 204 K/mm3 (150-450); RBC Distribution Width CV 13.7 % (11.6-14.6); RBC Distribution Width SD 41.7 fl (35.1-43.9); Red Blood Count 3.37 M/mm3 (4.2-5.4); White Blood Count 12.8 K/mm3 (4.4-11.0)
[2023-10-04 07:47] VITALS: BP 114/84; PULSE 82; RESP 14; TEMP 36.4; O2SAT 97
--- NOTE | 2023-10-04 09:04 | PCM.PN.OB ---
Subjective Subjective Patient doing well without complaints. Tolerating PO. Ambulating and voiding without difficulty. Feeding well. Denies chest pain, shortness of breath, calf pain/swelling, fevers, chills, lightheadedness. Objective Data Objective Data Vital Signs: Vital Signs Temp Pulse Resp BP Pulse Ox O2 Del Method 97.5 F L 82 14 114/84 H 97 Room Air 10/04/23 07:47 10/04/23 07:47 10/04/23 07:47 10/04/23 07:47 10/04/23 07:47 10/04/23 07:47 Oxygen Delivery Method Room Air Weight: 170 lb Body Mass Index (BMI) 31.1 Intake & Output: Intake and Output for Last 24 Hours 10/02/23 10/03/23 10/04/23 23:59 23:59 23:59 Intake Total 1641 / 1641 1115 / 1115 Output Total 750 / 750 950 / 950 Balance 891 / 891 165 / 165 Lab / Micro Data 10/04/23 05:20 Labs: Laboratory Results - last 24 hr 10/04/23 05:20: WBC 12.8 H, RBC 3.37 L, Hgb 8.8 L, Hct 28.3 L, MCV 84.0, MCH 26.1 L, MCHC 31.1 L, RDW Std Deviation 41.7, RDW Coeff of Sukhjinder 13.7, Plt Count 204, MPV 12.2 H Physical Exam Const alert and oriented x3 Eyes PERRL Neck full ROM Lymph Lymphatic: no lymphadenopathy noted Chest inspection of chest normal and inspection of breasts normal Resp normal respiratory effort and normal air movement Effort and Inspection: able to speak in complete sentences Auscultation: clear to auscultation bilaterally Cardio regular rate and regular rhythm GI normal to inspection, nondistended, normoactive bowel sounds Uterus Palpation: uterus fundus firm Back/Spine no CVA tenderness Extremity normal to inspection, full ROM, no calf tenderness and no pedal edema Skin no rashes or lesions noted Skin Narrative: dressing c/d/i Psych mental status grossly normal Assessment & Plan (1) delivery delivered: COMMENT: LT history of shoulder dystocia 7lb 11 oz girl [facility] PLAN: s/p LTCS PPD # 2 1. routine post care 2. breast feeding- support given 3. rh positive 4. rubella immune
--- NOTE | 2023-10-04 09:26 | PCM.DC.SUM ---
Providers Date of Admission: 10/02/23 Primary Care Physician: Dr. Jenna Vigil MD Reason For Visit: PRIMARY C SECTION Diagnosis Discharge Diagnosis (1) delivery delivered: Status: Acute Code(s): O82 - Encounter for delivery without indication Plan: s/p LTCS PPD # 2 1. routine post care 2. breast feeding- support given 3. rh positive 4. rubella immune Medications at Discharge Home Medications multivitamin no.47-iron fum 27 mg-folate no.1 1 mg-dha 300 mg capsule (PNV-DHA) 1 cap PO 03/06/23 ondansetron 4 mg disintegrating tablet 4 mg PO Q6H PRN nausea and vomiting #60 tabs 04/03/23 naproxen 500 mg tablet 500 mg PO BID PRN PRN Pain #30 tabs 10/02/23 oxycodone-acetaminophen 5 mg-325 mg tablet (Percocet) 1 tab PO Q6H PRN pain 7 days #20 tabs 10/02/23 Hospital Course Operations section Procedures None Summary of Care Provided Hospital Course: s/p PCS for hx of shoulder dystocia Physical Exam Const alert and oriented x3 Eyes PERRL Neck full ROM Lymph Lymphatic: no lymphadenopathy noted Chest inspection of chest normal and inspection of breasts normal Resp normal respiratory effort and normal air movement Effort and Inspection: able to speak in complete sentences Auscultation: clear to auscultation bilaterally Cardio regular rate and regular rhythm GI normal to inspection, nondistended, normoactive bowel sounds Uterus Palpation: uterus fundus firm Back/Spine no CVA tenderness Extremity normal to inspection, full ROM, no calf tenderness and no pedal edema Skin no rashes or lesions noted Skin Narrative: dressing c/d/i Psych mental status grossly normal Weight / BMI Weight Weight: 170 lb Body Mass Index (BMI) 31.1 ABG / Lab / Microbiology Data 10/04/23 05:20 Laboratory: Laboratory Results - last 24 hr 10/04/23 05:20: WBC 12.8 H, RBC 3.37 L, Hgb 8.8 L, Hct 28.3 L, MCV 84.0, MCH 26.1 L, MCHC 31.1 L, RDW Std Deviation 41.7, RDW Coeff of Sukhjinder 13.7, Plt Count 204, MPV 12.2 H D/C Instructions Discharge Diet: No restrictions May shower in (days): 0 May resume sexual activity in: 4-6 weeks Weight Bearing Status: Full weight bearing Call your doctor if your incision/area has: Continuous Slow Oozing, Sudden Increased Bleeding, Increased Pain/ Swelling, Increased Redness and Foul Smelling Discharge Call your doctor if you observe: Fever of 101 or Higher and Using more than 1 pad per hour (for 2 hours) Suture Line Care: Avoid Pulling/Pushing and Avoid Pinching/Bending Cleanse incision/area with: Soap & Water and Keep Dressing Clean & Dry Please Follow Up With: Cassandra Lockhart MD When: Call [phone] to make an appointment for an incision check in 1-2 weeks. Meaningful Use Info Meaningful Use Meaningful Use Diagnoses (Choose all that apply): None applicable Ischemic Stroke Statin Dosing Therapy Reference: STATIN DOSE THERAPY REFERENCE: * Patients > 75 years receive moderate or high dose statin therapy. * Patients 75 years or YOUNGER should receive HIGH intensity statin dose unless contraindicated. You will be required to document reason for non-treatment if statin daily dose does not meet guidelines. HIGH DOSE STATIN THERAPY DAILY Atorvastatin > than or = to 40 mg Rosuvastatin > than or = to 20 mg Amlodipine + Atorvastatin > than or = to 2.5/40 mg Ezetimibe + Simvastatin 10/80 mg Simvastatin 80mg Discharge Plan Admission Admit Date/Time: 10/02/23 14:26 Attending Provider: Cassandra Lockhart Primary Care Provider: Jenna Vigil Discharge Orders/Prescriptions Prescriptions: New oxycodone-acetaminophen [Percocet] 5-325 mg tablet 1 tab PO Q6H PRN (Reason: pain) 7 Days Qty: 20 0RF naproxen 500 mg tablet 500 mg PO BID PRN PRN (Reason: Pain) Qty: 30 1RF No Action PNV-DHA 27 mg iron-1 mg -300 mg capsule 1 cap PO ondansetron 4 mg tablet,disintegrating 4 mg PO Q6H PRN (Reason: nausea and vomiting) Qty: 60 0RF Referrals / Follow Up: Jenna Vigil MD [Primary Care Provider] - Disposition Disposition (needs filled in before D/C Order can be placed): Home, Self Care
[2023-10-04] MEDS: Senna/Docusate Sodium 1 Tablet PO (10:27)
== END 2023-10-04 11:20 | disposition home or self-care (01) | DRG 788 ==
PROVIDERS: Registered Nurse; Admitting Provider Obstetrics & Gynecology; PCP Family Medicine; Referring Provider Obstetrics & Gynecology; Visit Provider Obstetrics & Gynecology
PROC: 10D00Z1 Extraction of Products of Conception, Low, Open Approach (ICD-10-PCS; CPT 59514; principal; 2023-10-02 15:45)
DX: O99.824 Streptococcus B carrier state complicating childbirth (principal); D64.9 Anemia, unspecified; O99.02 Anemia complicating childbirth; Z37.0 Single live birth; Z3A.38 38 weeks gestation of pregnancy; Z87.59 Personal history of other complications of pregnancy, childbirth and the puerperium
CPT/HCPCS: 59025; 59050; 85025; 85027; 86780; 86850; 86900; 86901; 99221; J7120; A4216; G0378; J2405

== ENCOUNTER → 2024-04-26 | Outpatient (CLI) | payer OTHER, SELFPAY ==
[2024-04-26 16:55] LABS: Absolute Lymphocyte Count 2.63 X10^3/uL (0.83-4.51); Absolute Neutrophil Count 5.7 X10^3/uL (2.0-7.7); Basophil# 0.03 X10^3/uL; Basophil% 0.3 % (0-1); Eosinophil# 0.05 X10^3/uL; Eosinophils% 0.6 % (0-5); Hematocrit 39.7 % (37-47); Hemoglobin 12.7 g/dL (12.0-15.0); Lymphocyte # 2.63 X10^3/ul (0.83-4.51); Lymphocyte % 29.6 % (19-41); Mean Corpuscular Hgb 27.7 pg (27.0-32.0); Mean Corpuscular Volume 86.5 fL (81-99); Mean Platelet Vol. 12.4 fl (6.2-12.0); Monocyte# 0.51 X10^3/uL; Monocyte% 5.7 % (0-10); NRBC Flagged by Analyzer 0 % (0-5); Neutrophil # 5.65 X10^3/uL (2.7-7.7); Neutrophil % 63.5 % (47-70); Platelet Count 231 K/mm3 (150-450); RBC Distribution Width CV 13.2 % (11.6-14.6); RBC Distribution Width SD 41.4 fl (35.1-43.9); Red Blood Count 4.59 M/mm3 (4.2-5.4); White Blood Count 8.9 K/mm3 (4.4-11.0)
== END | disposition home or self-care (01) ==
PROVIDERS: PCP Family Medicine; Referring Provider Nurse Practitioner Women's Health; Visit Provider Nurse Practitioner Women's Health
DX: Z13.29 Encounter for screening for other suspected endocrine disorder (principal); D64.9 Anemia, unspecified
CPT/HCPCS: 36415; 84443; 85025

== ENCOUNTER 2024-06-07 13:18 | Emergency (ER) | payer OTHER, SELFPAY ==
[2024-06-07 13:19] VITALS: BP 135/85; PULSE 98; RESP 15; TEMP 36.3; O2SAT 99; BMI 29.8
[2024-06-07 15:06] LABS: Absolute Lymphocyte Count 1.59 X10^3/uL (0.83-4.51); Absolute Neutrophil Count 9.5 X10^3/uL (2.0-7.7); Basophil# 0.03 X10^3/uL; Basophil% 0.3 % (0-1); Eosinophil# 0.02 X10^3/uL; Eosinophils% 0.2 % (0-5); Hematocrit 37.9 % (37-47); Hemoglobin 12.6 g/dL (12.0-15.0); Lymphocyte # 1.59 X10^3/ul (0.83-4.51); Lymphocyte % 13.3 % (19-41); Mean Corp Hgb Conc 33.2 g/dL (32-36); Mean Corpuscular Hgb 28.1 pg (27.0-32.0); Mean Corpuscular Volume 84.6 fL (81-99); Mean Platelet Vol. 12.1 fl (6.2-12.0); Monocyte# 0.76 X10^3/uL; Monocyte% 6.3 % (0-10); NRBC Flagged by Analyzer 0 % (0-5); Neutrophil # 9.54 X10^3/uL (2.7-7.7); Neutrophil % 79.4 % (47-70); POSITIVE MORPHOLOGY YES; Platelet Count 198 K/mm3 (150-450); RBC Distribution Width CV 13.5 % (11.6-14.6); RBC Distribution Width SD 41.8 fl (35.1-43.9); Red Blood Count 4.48 M/mm3 (4.2-5.4)
[2024-06-07 15:25] LABS: ALB/GLOB Ratio 1.4 RATIO (0.9-2.4); AST(SGOT) 17 U/L (<=31); Alanine Aminotransfer ALT/SGPT 11 U/L (<=34); Albumin, Serum 4.4 g/dL (3.5-5.0); Alkaline Phosphatase 115 U/L (35-104); Anion Gap 11 (5-15); BUN 8 mg/dL (4-19); Calcium,Total 9.9 mg/dL (7.6-11.0); Carbon Dioxide 25.2 mmol/L (21.0-32.0); Chloride 103 mmol/L (98-108); Creatinine, Serum 0.84 mg/dL (0.70-1.20); EST Glomerular Filtration Rate 95 (>60); Estimated Creatinine Clearance 90.52 ml/min (50-250); Globulin 3.2 g/dL (2.2-4.2); Glucose 123 mg/dL (70-99); Lipase 37 U/L (13-75); Protein, Total 7.7 g/dL (5.9-8.4); Sodium Level 139 mmol/L (133-145); Total Bilirubin 0.19 mg/dL (0.00-1.30)
[2024-06-07 15:32] LABS: Internal QC Validated? YES +Cl - CLEAR BKGD
[2024-06-07 15:35] LABS: Pregnancy, Serum, hCG Quali. POSITIVE Negative
[2024-06-07 15:48] LABS: Platelet Estimate ADEQUATE (ADEQ)
--- NOTE | 2024-06-07 16:08 | US_ITS ---
PROCEDURE: TRANSVAGINAL W/PREG US 06/07/2024 REASON FOR EXAM: ABDOMINAL PAIN/BLEEDING TECHNIQUE: Transvaginal FINDINGS: Comments: Number of Gestational Sacs: 1 Gestational Sac Shape: Normal Number of Fetuses: 1 Heart Rate: 129 (average) Survey of Visible Anatomic Structures: Grossly unremarkable for gestational age. Nasal Bones: Yolk Sac: Present and unremarkable. Placenta: Presently not well-visualized Amniotic Fluid Volume: Subjectively normal for gestational age. Uterine Abnormalities: Maternal uterus is unremarkable. Ovaries / Adnexa: Both maternal ovaries are visualized and unremarkable. DIMENSIONS: Parameter Measurement / EGA Lynd Rump Length: 5 mm/6 weeks 3 days Gestational Sac: 20 mm/6 weeks 6 days Yolk Sac: 3 mm/ ESTIMATED GESTATIONAL AGE: By Ultrasound: 6 weeks 5 days By LMP: 5 weeks 2 days ESTIMATED DATE OF DELIVERY: By Ultrasound: 01/26/2025 By LMP: 02/05/2025 US/Transvaginal w/Preg US IMPRESSION: UNREMARKABLE FIRST TRIMESTER ULTRASOUND. Reading Location: [id number]
[2024-06-07 16:23] LABS: Mucous, Urine 0 SEEN /hpf (<or=2+)
[2024-06-07 16:28] VITALS: PULSE 96; RESP 18; O2SAT 100
--- NOTE | 2024-06-07 16:35 | EX.ED.DYSGE1 ---
HPI History of Present Illness Chief Complaint: Abd Pain Narrative Narrative: 33-year-old female, G3, P2 presents at the direction of her OUTPATIENT PSYCHIATRIST's at [facility] for evaluation for possible ectopic . She relates history that she has had a regular menses after her second child that was delivered by section 8 months ago. She has always had irregular menses because she has history of PCO/PCO candidacy. Her last menses was approximately a month ago. She had some spotting in between. She felt nauseated and vomited. She states she took multiple home test that were positive. She tried to make an appointment with her OUTPATIENT PSYCHIATRIST but they states that she needs to be ruled out for an ectopic given that she has been having a few weeks of right pelvic pain that is intermittent. [facility] Medical History (Updated 06/07/24 @ 18:50 by Heriberto Frazier MD) Supervision of high-risk History of shoulder dystocia Positive GBS test depression PMDD (premenstrual dysphoric disorder) Anemia PCOS (polycystic ovarian syndrome) Home Medications ?Medication ?Instructions ?Recorded ?Last Taken ?Type norethindrone acetate 5 mg tablet 5 mg PO .COMPLEX #45 tabs 04/26/24 Unknown Rx Allergy/AdvReac Type Severity Reaction Status Date / Time No Known Allergies Allergy Verified 06/07/24 13:19 Family History Father Diabetes Type 1 Mother Hypertension Grandfather Cancer bladder Surgical History H/O oral surgery Social History adopted: No household members: spouse and children number of children: 1 current occupational status: employed 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 pets and animals: Yes pets and animals: dog(s) history of recent travel: No sexually active: Yes Smoking Status: Never smoker alcohol intake: current alcohol intake frequency: holidays/special occasions only details: none with substance use type: does not use well-balanced diet: daily or most days caffeine: No eating out: rarely or never during the past year weight has: remained stable what type of physical activity do you participate in: walking, running and weight training kofi/druze: Taoist seatbelt use: always do you feel safe at home: Yes additional social history: Boogie LEIGH 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 Cardiovascular: No chest pain. No palpitations. No pedal edema. Respiratory: No cough, no shortness of breath. Abdominal: Right lower quadrant abdominal pain. Intermittent nausea and vomiting. Genitourinary: No dysuria. No hematuria. Right sided pelvic pain. No vaginal bleeding or discharge. Musculoskeletal: No myalgias. No arthralgias. EXAM Physical Exam Narrative Exam Narrative: Afebrile. Vital signs noted. Nontoxic-appearing. Cardiovascular examination reveals a regular rate and rhythm. Lungs are clear to auscultation bilaterally. Abdomen is soft, nontender without guarding or rebound. Positive bowel sounds. Neurological examination is nonfocal and nonlateralizing. No noted pedal edema. Const Vital Signs: 06/07/24 13:19 06/07/24 16:28 06/07/24 18:00 Temperature 97.4 F L Temperature Source Temporal Pulse Rate 98 96 84 Respiratory Rate 15 18 15 Blood Pressure 135/85 H 116/82 H Blood Pressure Mean 101 93 Pulse Ox 99 100 100 Oxygen Delivery Method Room Air Room Air Room Air MDM MDM MDM Narrative Medical decision making narrative: Differential diagnosis includes but not limited to corpus luteal pain versus ectopic versus acute appendicitis versus abdominal wall pain. I have low suspicion for acute appendicitis based on her clinical examination and the length of time that she has had pain that is intermittent. I do not feel CT scanning is indicated. I reviewed her labs and she has slightly elevated white count of 12.0 which I think is nonspecific, hemoglobin 12.6 with hematocrit 37.9, platelet count normal at 198. Sodium 139, potassium 4.0, chloride 103, CO2 25.2 with BUN 8 and creatinine normal at 0.84. LFTs show alk phos slightly elevated at 115. Serum is positive. Urinalysis shows 5-10 WBCs but negative for nitrites. I will send for culture. Quantitative beta-hCG is 47,126. I reviewed the radiology report of the transvaginal ultrasound. It shows an intrauterine with 1 gestational sac/fetus with an average heart rate of 129 bpm. I discussed patient with Dr. Valorie Adams with OUTPATIENT PSYCHIATRIST who agrees with outpatient follow-up in approximately 2 weeks. At this point in time, I feel she can be discharged to follow-up with OUTPATIENT PSYCHIATRIST. She will return with vaginal bleeding, increased pain, new or worsening symptoms. Lab Data Labs: Laboratory Results - last 24 hr 06/07/24 06/07/24 06/07/24 15:00 16:15 16:30 WBC 12.0 H RBC 4.48 Hgb 12.6 Hct 37.9 MCV 84.6 MCH 28.1 MCHC 33.2 RDW Std Deviation 41.8 RDW Coeff of Sukhjinder 13.5 Plt Count 198 MPV 12.1 H Immature Gran % (Auto) 0.500 Neut % (Auto) 79.4 H Lymph % (Auto) 13.3 L Thayer % (Auto) 6.3 Eos % (Auto) 0.2 Baso % (Auto) 0.3 Absolute Neuts (auto) 9.5 H Absolute Lymphs (auto) 1.59 Nucleated RBC % 0 Platelet Estimate ADEQUATE Sodium 139 Potassium 4.0 Chloride 103 Carbon Dioxide 25.2 Anion Gap 11 BUN 8 Creatinine 0.84 Estim Creat Clear Calc 90.52 Est GFR (MDRD) Non-Af 95 BUN/Creatinine Ratio 10.0 Glucose 123 H Calcium 9.9 Total Bilirubin 0.19 AST 17 ALT 11 Alkaline Phosphatase 115 H Total Protein 7.7 Albumin 4.4 Globulin 3.2 Albumin/Globulin Ratio 1.4 Lipase 37 HCG, Quant 42637 H Serum , Qual POSITIVE Urine Color Yellow Urine Clarity Sl. Cloudy Urine pH 7.0 Ur Specific [place] 1.010 Urine Protein 15 H Urine Glucose (UA) Normal Urine Ketones Negative Urine Occult Blood Negative Urine Nitrite Negative Urine Bilirubin Negative Urine Urobilinogen Normal Ur Leukocyte Esterase 25 H Urine RBC 0-5 SEEN Urine WBC 5-10 SEEN Ur Squamous Epith Cells 0-5 SEEN Urine Bacteria 1+ Urine Mucus 0 SEEN Radiography Diagnostic Testing: Clinical Impression(s) from Imaging Studies Obstetrics Ultrasound 06/07/24 16:08 IMPRESSION: UNREMARKABLE FIRST TRIMESTER ULTRASOUND. Reading Location: [id number] Management Discussion w/another healthcare provider: Direct Marketing Coordinator (Dr. Adams, OUTPATIENT PSYCHIATRIST) Discharge Plan Triage Chief Complaint: Abd Pain ED Provider: Heriberto Frazier Dx/Rx/DC Orders Clinical Impression: First trimester , Abdominal pain Instructions: 1st Trimester, First Trimester, ED Pelvic Pain, Unknown Cause Prescriptions: No Action norethindrone acetate 5 mg tablet 5 mg PO .COMPLEX Qty: 45 0RF Rx Instructions: 5 mg PO tid until bleeding stops X 24 hr then bid to finish Rx Primary Care Provider: Jenna Vigil Referrals: Valorie Ramos DO [Med Staff - Active Staff] - 1-2 Weeks Jenna Vigil MD [Primary Care Provider] - Activity Restrictions/Additional Instructions: Follow-up with the OUTPATIENT PSYCHIATRIST in 2 weeks. Return with vaginal bleeding, increased pain, new or worsening symptoms. Start vitamins. Print Language: Indonesian Disposition Disposition: Home, Self Care
[2024-06-07 16:48] LABS: Color, Urine Yellow (Yellow); Glucose, Dipstick Normal (Normal); Ketone-Dipstick Negative (Negative); Leukocyte Esterase-Dipstick 25 /ul (Negative); Nitrite-Dipstick Negative (Negative); Occult Blood-Urine Negative /ul (Negative); Protein-Dipstick 15 mg/dl (Negative); Urine Bilirubin Dipstick Negative (Negative); Urine Clarity Sl. Cloudy (Clear); Urine Urobilinogen Normal (Normal)
[2024-06-07 17:06] LABS: Bacteria 1+ /hpf (None Seen)
[2024-06-07 17:07] LABS: White Blood Cells 5-10 SEEN /hpf (0-5)
[2024-06-07 17:08] LABS: Red Blood Cells-Urine 0-5 SEEN /hpf (0-5); Squamous Epithelial Cells - UA 0-5 SEEN /hpf (5-10)
[2024-06-07 18:00] VITALS: BP 116/82; PULSE 84; RESP 15; O2SAT 100
[2024-06-07 18:35] LABS: hCG Titer Quant., Serum 47126 mIU/mL (<9 non-preg)
[2024-06-07 18:52] VITALS: BP 125/79; PULSE 85; RESP 22; TEMP 36.6; O2SAT 100
== END 2024-06-07 18:56 | disposition home or self-care (01) ==
PROVIDERS: Nurse Practitioner; Emergency Provider Emergency Medicine; PCP Family Medicine; Visit Provider Emergency Medicine
DX: O99.891 Other specified diseases and conditions complicating pregnancy (principal); R10.9 Unspecified abdominal pain; Z3A.00 Weeks of gestation of pregnancy not specified
CPT/HCPCS: 76817; 80053; 81001; 83690; 84702; 84703; 85025; 99282; A4216

== ENCOUNTER 2024-06-29 21:23 | Emergency (ER) | payer OTHER, SELFPAY ==
[2024-06-29 21:24] VITALS: BP 135/93; PULSE 86; RESP 16; TEMP 36.6; O2SAT 100; BMI 29.1
--- NOTE | 2024-06-29 22:32 | EDS_ITS ---
HPI HPI - Female History of Present Illness Chief Complaint: Vag Bld, Preg Informant: patient Associated Symptoms P: 2 Narrative Narrative: 33-year-old female around 10 weeks G3, P2, she had some bleeding several weeks ago but it was brown, as well as some cramping so she was seen here in the ED and had an ultrasound rule out ectopic, IUP was seen. She was seen in follow-up in the office and was told that she had a subchorionic hemorrhage which she has had with her other pregnancies. Within the past couple hours she had bright red blood which is the first time during this she has seen that along with some small clots. The bleeding has not been heavy. She denies any pain, lightheadedness, syncope, or other acute symptoms tonight. She called the OB on-call and she was advised to come be evaluated. [facility] Medical History Supervision of high-risk History of shoulder dystocia Positive GBS test depression PMDD (premenstrual dysphoric disorder) Anemia PCOS (polycystic ovarian syndrome) Home Medications ?Medication ?Instructions ?Recorded ?Last Taken ?Type ferrous sulfate 300 mg (60 mg 300 mg PO QDAY 06/22/24 Unknown History iron)/5 mL oral liquid Allergy/AdvReac Type Severity Reaction Status Date / Time No Known Allergies Allergy Verified 06/22/24 14:55 Family History Father Diabetes Type 1 Mother Hypertension Grandfather Cancer bladder Surgical History H/O oral surgery Social History adopted: No household members: spouse and children number of children: 1 current occupational status: employed 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 pets and animals: Yes pets and animals: dog(s) history of recent travel: No sexually active: Yes Smoking Status: Never smoker alcohol intake: current alcohol intake frequency: holidays/special occasions only details: none with substance use type: does not use well-balanced diet: daily or most days caffeine: No eating out: rarely or never during the past year weight has: remained stable what type of physical activity do you participate in: walking, running and weight training kofi/islam: Congregation seatbelt use: always do you feel safe at home: Yes additional social history: Boogie LEIGH 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 ROS JOSELITO ED Constitutional Constitutional ED: Denies chills or fever(s) Eyes Eyes: Denies change in vision or diplopia ENT ENT ED: Denies rhinorrhea or sore throat Cardiovascular Cardiovascular: Denies chest pain or palpitations Respiratory/Chest Respiratory/Chest: Denies cough or dyspnea Gastrointestinal Gastrointestinal: Denies abdominal pain, diarrhea, nausea or vomiting Genitourinary Genitourinary ED: Denies dysuria or hematuria Musculoskeletal Musculoskeletal: Denies back pain or neck pain Integumentary Denies abscess or rash Neurologic Neurologic: Denies headache(s), paresthesias or weakness Psychiatric Psychiatric: Denies anxiety or suicidal thoughts EXAM Physical Exam Const Vital Signs: 06/29/24 21:24 06/29/24 23:18 06/29/24 23:24 Temperature 97.9 F Temperature Source Temporal Pulse Rate 86 Pulse Rate [Lying] 72 Pulse Rate [Sitting (for 1 minute prior to obtaining)] 84 Pulse Rate [Standing (for 1 minute prior to obtaining)] 86 Respiratory Rate 16 Blood Pressure 135/93 H 125/92 H Blood Pressure [Lying] 134/79 H Blood Pressure [Sitting (for 1 minute prior to obtaining)] 119/85 H Blood Pressure [Standing (for 1 minute prior to obtaining)] 125/92 H Blood Pressure Mean 107 103 Blood Pressure Mean [Lying] 97 Blood Pressure Mean [Sitting (for 1 minute prior to obtaining)] 96 Blood Pressure Mean [Standing (for 1 minute prior to obtaining)] 103 Pulse Ox 100 Oxygen Delivery Method Room Air 06/29/24 23:24 Temperature 97.9 F Temperature Source Pulse Rate 86 Pulse Rate [Lying] Pulse Rate [Sitting (for 1 minute prior to obtaining)] Pulse Rate [Standing (for 1 minute prior to obtaining)] Respiratory Rate 16 Blood Pressure 125/92 H Blood Pressure [Lying] Blood Pressure [Sitting (for 1 minute prior to obtaining)] Blood Pressure [Standing (for 1 minute prior to obtaining)] Blood Pressure Mean 103 Blood Pressure Mean [Lying] Blood Pressure Mean [Sitting (for 1 minute prior to obtaining)] Blood Pressure Mean [Standing (for 1 minute prior to obtaining)] Pulse Ox 100 Oxygen Delivery Method Positive well nourished and well developed General Appearance ED: well developed and NAD HEENT Reports moist mucous membranes normocephalic and atraumatic Eyes PERRL and EOMs intact bilaterally Neck full ROM and supple Resp normal respiratory effort and clear to auscultation bilaterally Cardio regular rate, regular rhythm and no murmurs Rate: Negative for tachycardic GI non-tender and non-distended Auscultation: normoactive bowel sounds Palpation: soft Back/Spine no CVA tenderness General Back: other FROM Extremity normal to inspection General Extremety ED: Negative for edema, pulses abnormal or tenderness General Extremity: Negative for edema or pulses abnormal Neuro oriented x3, CN's II-XII intact bilaterally and no sensory deficits noted Sensorium / Orientation: awake and alert Motor Exam: strength 5/5 throughout Psych mental status grossly normal Skin no rashes or lesions noted and no wounds MDM MDM MDM Narrative Medical decision making narrative: Patient's last hemoglobin was around 12.6. I had that repeated and did a bedside ultrasound. Now her hemoglobin is 12.4. Orthostatics are negative. There is a single live intrauterine with movement, and heart tones were measured to be 178. Patient is not having significant volume of bleeding right now so I think she is stable for discharge and close outpatient follow-up with her OB she is comfortable with that plan. History & Record Review Additional record(s) reviewed:: Prior ED visit and Prior labs (Blood type O+ --RhoGAM not indicated) Lab Data Attestation: I reviewed the patient's lab results. Labs: Laboratory Results - last 24 hr 06/29/24 21:35 WBC 11.3 H RBC 4.30 Hgb 12.4 Hct 36.4 L MCV 84.7 MCH 28.8 MCHC 34.1 RDW Std Deviation 43.1 RDW Coeff of Sukhjinder 14.5 Plt Count 191 MPV 13.3 H Immature Gran % (Auto) 0.400 Neut % (Auto) 64.4 Lymph % (Auto) 28.3 Levy % (Auto) 5.9 Eos % (Auto) 0.6 Baso % (Auto) 0.4 Absolute Neuts (auto) 7.3 Absolute Lymphs (auto) 3.20 Nucleated RBC % 0 Discharge Plan Triage Chief Complaint: Vag Bld, Preg ED Provider: Wilbert Butler Dx/Rx/DC Orders Clinical Impression: Threatened in first trimester Instructions: Miscarriage Threatened Prescriptions: No Action ferrous sulfate 300 mg (60 mg iron)/5 mL liquid 300 mg PO QDAY Primary Care Provider: Jenna Vigil Referrals: Cassandra Lockhart MD [Med Staff - Active Staff] - Keep Jorge appointment (call office tomorrow to see if OB wants to see you sooner) Print Language: Guyanese Disposition Disposition: Home, Self Care Discharge Date/Time: 06/29/24 23:25
[2024-06-29 22:47] LABS: Absolute Neutrophil Count 7.3 X10^3/uL (2.0-7.7); Basophil# 0.04 X10^3/uL; Basophil% 0.4 % (0-1); Eosinophil# 0.07 X10^3/uL; Eosinophils% 0.6 % (0-5); Hematocrit 36.4 % (37-47); Hemoglobin 12.4 g/dL (12.0-15.0); Lymphocyte % 28.3 % (19-41); Mean Corp Hgb Conc 34.1 g/dL (32-36); Mean Corpuscular Hgb 28.8 pg (27.0-32.0); Mean Corpuscular Volume 84.7 fL (81-99); Mean Platelet Vol. 13.3 fl (6.2-12.0); Monocyte# 0.67 X10^3/uL; Monocyte% 5.9 % (0-10); NRBC Flagged by Analyzer 0 % (0-5); Neutrophil # 7.28 X10^3/uL (2.7-7.7); Neutrophil % 64.4 % (47-70); Platelet Count 191 K/mm3 (150-450); RBC Distribution Width CV 14.5 % (11.6-14.6); RBC Distribution Width SD 43.1 fl (35.1-43.9); White Blood Count 11.3 K/mm3 (4.4-11.0)
[2024-06-29 23:18] VITALS: BP 119/85; BP 125/92; BP 134/79; PULSE 72; PULSE 84; PULSE 86
[2024-06-29 23:24] VITALS: BP 125/92; PULSE 86; RESP 16; TEMP 36.6; O2SAT 100
== END 2024-06-29 23:25 | disposition home or self-care (01) ==
PROVIDERS: Emergency Provider Emergency Medicine; PCP Family Medicine; Visit Provider Emergency Medicine
DX: O20.0 Threatened abortion (principal); Z3A.00 Weeks of gestation of pregnancy not specified
CPT/HCPCS: 85025; 99283; A4216

== ENCOUNTER → 2024-07-07 | Outpatient (CLI) | payer OTHER, SELFPAY ==
[2024-07-07 16:39] LABS: Absolute Lymphocyte Count 1.95 X10^3/uL (0.83-4.51); Basophil# 0.02 X10^3/uL; Basophil% 0.2 % (0-1); Eosinophil# 0.04 X10^3/uL; Eosinophils% 0.4 % (0-5); Hematocrit 38.7 % (37-47); Lymphocyte # 1.95 X10^3/ul (0.83-4.51); Lymphocyte % 20.5 % (19-41); Mean Corp Hgb Conc 33.6 g/dL (32-36); Mean Corpuscular Hgb 28.6 pg (27.0-32.0); Mean Corpuscular Volume 85.2 fL (81-99); Mean Platelet Vol. 12.2 fl (6.2-12.0); Monocyte# 0.45 X10^3/uL; Monocyte% 4.7 % (0-10); NRBC Flagged by Analyzer 0 % (0-5); Neutrophil # 7.04 X10^3/uL (2.7-7.7); Neutrophil % 73.9 % (47-70); Platelet Count 194 K/mm3 (150-450); RBC Distribution Width CV 13.5 % (11.6-14.6); Red Blood Count 4.54 M/mm3 (4.2-5.4); White Blood Count 9.5 K/mm3 (4.4-11.0)
[2024-07-07 17:39] LABS: HIV Nonreactive (Nonreactive); Hepatitis B Surface Antigen Nonreactive (Nonreactive); Hepatitis C Antibody Nonreactive (Nonreactive); Rubella IgG REAC (Nonreactive); Syphilis Antibodies Nonreactive (Nonreactive)
[2024-07-07 18:05] LABS: Hemoglobin A1c 5.1 % (<=5.6)
[2024-07-11 23:07] LABS: Chlamydia By Nucleic Acid AMP Negative (Negative); Gonococcus By Nucleic Acid AMP Negative (Negative)
[2024-07-12 11:08] LABS: HPV APTIMA, High Risk Negative (Negative)
== END | disposition home or self-care (01) ==
PROVIDERS: PCP Family Medicine; Referring Provider Obstetrics & Gynecology; Visit Provider Obstetrics & Gynecology
DX: O09.91 Supervision of high risk pregnancy, unspecified, first trimester (principal); Z3A.00 Weeks of gestation of pregnancy not specified
CPT/HCPCS: 36415; 83036; 85025; 86703; 86762; 86780; 86803; 86850; 86900; 86901; 87086; 87340; 87491; 87591; 87624; 88175; G0145

== ENCOUNTER → 2024-11-16 | Outpatient (CLI) | payer OTHER, SELFPAY ==
[2024-11-16 16:54] LABS: Hematocrit 32.9 % (37-47); Hemoglobin 10.9 g/dL (12.0-15.0); Immature Granulocytes Count 0.090 X10^3/uL (0.0-0.0); Mean Corp Hgb Conc 33.1 g/dL (32-36); Mean Corpuscular Volume 82.5 fL (81-99); Mean Platelet Vol. 12.8 fl (6.2-12.0); NRBC Flagged by Analyzer 0 % (0-5); Platelet Count 183 K/mm3 (150-450); RBC Distribution Width CV 12.6 % (11.6-14.6); RBC Distribution Width SD 38.2 fl (35.1-43.9); Red Blood Count 3.99 M/mm3 (4.2-5.4); White Blood Count 13.3 K/mm3 (4.4-11.0)
[2024-11-16 17:36] LABS: Glucose Challenge Gest 1H 50g 120 mg/dL (70-140); HIV Nonreactive (Nonreactive); Syphilis Antibodies Nonreactive (Nonreactive)
--- OUTSIDE RECORDS SUMMARY | 2024-11-16 18:54 | XMS RPT_ITS | CCD ---
Author Organization [facility] Care Team Providers Care Psychiatric Assistant Name Role Phone Dr. Kelle Oconnell Primary Care Provider Dr. Kelle Oconnell Referring Provider Dr. Valorie Ramos Attending Provider [phone] Dr. Cassandra Lockhart Attending Provider [phone] Dr. Cassandra Lockhart Referring Provider [phone] Dr. Cassandra Lockhart Other Provider [phone] Dr. Cassandra Lockhart Admit Provider Annita YOKE PRESSER, YOKE PRESSER-C John Attending Provider [place] YOKE PRESSER, YOKE PRESSER-C Tea Attending Provider LEATHA CALVIN Attending Unava ilable MIGUEL VIGIL Primary Care Unavailable Dr. Kelle Oconnell Primary Care Provider Dr. Kelle Oconnell Referring Provider Dr. Cassandra Lockhart Attending Provider Dr. Valorie Ramos Attending Provider Dr. Miguel Vigil Primary Care Provider Dr. Miguel Vigil Referring Provider RICHIE Lazo Attending Provider Dr. Kelle Oconnell Referring Provider RICHIE Morrow Attending Provider Dr. Miguel Vigil MD Primary Care Provider Annita YOKE PRESSER-CJohn Attending Provider [place] YOKE PRESSER-C, John Referring Provider Freddie HAUSER, Heriberto Emergency Provider Freddie HAUSER, Heriberto Attending Provider Musa HAUSER, Dr. West Referring Provider Chantelle HAUSER, Dr. Trujillo Attending Provider Luke HAUSER, Dr. Atkins Emergency Provider Luke HAUSER, Dr. Atkins Attending Provider Gabriel RN, Isa Attending Provider Unavailabl e Chantelle HAUSER, Dr. Trujillo Referring Provider [phone] DISTEL, KELLE Primary Care Unavailable LEONARDO BACON Attending Unavailable ANNITA, JOHN S Referring Unavailable VIGIL, MIGUEL N Primary Care Unavailable Musa HAUSER, Dr. West Primary Care Provider Annita YOKE PRESSER-C, John Attending Provider Dr. Valorie Ramos DO Attending Provider Indiana Lazo CNM Attending Provider Musa HAUSER, Dr. West Primary Care Provider Dr. Miguel Vigil MD Referring Provider Chantelle HAUSER, Dr. Trujillo Attending Provider Cassandra Lockhart Attending Unavailable Vigil, Miguel Primary Care Unavailable Vigil, Miguel Referring Unavailable Cassandra Lockhart Attending Unavailable Vigil, Miguel Primary Care Unavailable Vigil, Miguel Referring Unavailable Valorie Ramos Attending Unavailabl e Vigil, Miguel Referring Unavailable Vigil, Miguel Primary Care Unavailable Indiana Lazo Attending Unavailable Vigil, Miguel Referring Unavailable Vigil, Miguel Primary Care Unavailable Vigil, Miguel Primary Care Unavailable Heriberto Frazier Attending Unavailable Vigil, Miguel Primary Care Unavailable [place] YOKE PRESSER, John Attending Unavailable Annita YOKE PRESSER, John Referring Unavailable Vigil, Miguel Primary Care Unavailable Cassandra Lockhart Referring Unavailable Cassandra Lockhart Attending Unavailable Vigil, Miguel Primary Care Unavailable Wilbert Butler Attending Unavailable Vande Velde, Valorie Attending Unavailabl e Vigil, Miguel Referring Unavailable Vigil, Miguel Primary Care Unavailable John Ariza NP Attending Unavailable Vigli, Miguel Referring Unavailable Vigil, Miguel Primary Care Unavailable Vigil, Miguel Primary Care Unavailable Isa Rios Attending Unavailable Valorie Ramos Attending Unavailabl e Vigil, Miguel Referring Unavailable Vigil, Miguel Primary Care Unavailable Medications Current Medications Medication Drug Class(es) Dates Sig (Normalized) Sig (Original) [place] (Nk) (6 sources) Start: 07-07-2024 [place] (Nk) Active July 07, 2024 12:00am Prenat.Vits,Gabo,Min -Iron-Folic (6 sources) Start: 08-21-2020 take 1 tablet by mouth once daily Prenat.Vits,Gabo,Mi o-Orjs-Txaep Active 1 TABLET PO DAILY August 21, 2020 10:10am Start: 08-21-2020 End: 09-09-2022 take 1 tablet by mouth once daily Prenat.Vits,Gabo,Rxs-Dvts-Cchwq Discontin ued 1 TABLET PO DAILY August 20, 2020 11:00pm September 09, 2022 8:25am Completed/Discontinued Medications Medication Drug Class(es) Dates Sig (Normalized) Sig (Original) acetaminophen 325 mg / oxyCODONE hydrochloride 5 mg oral tablet (20 sources) Opioid Agonist Start: 10-02-2023 End: 10-16-2023 Oxycodone-Acetamino phen (Percocet) 5-325 mg tablet Discontinued 1 {tbl} PO EVERY 6 HOURS as needed for pain 20 7 0 October 02, 2023 October 16, 2023 2:46pm delivery delivered Encounter for delivery without indication Start: 04-11-2021 End: 05-24-2021 Oxycodone-Acetaminophen (Per cocet) 5-325 mg tablet Discontinued 1 {tbl} PO EVERY 6 HOURS as needed for pain 10 7 0 April 11, 2021 May 24, 2021 2:05pm Vaginal delivery Encounter for full-term uncomplicated delivery aspirin 81 mg chewable tablet (15 sources) Platelet Aggregation Inhibitor, Nonsteroidal Anti-inflammatory Drug Start: 02-28-2021 End: 04-11-2021 take 1 tablet by mouth once daily Aspirin 81 mg tablet,chewable Discontinued 81 mg PO DAILY February 28, 2021 1:00am April 11, 2021 2:48pm Dietary Supplement (5 sources) Start: 12-18-2022 End: 03-06-2023 Dietary Supplement Discontinued CAP PO December 17, 2022 11:00pm March 06, 2023 3:09pm Start: 12-18-2022 Dietary Supple ment Active CAP PO December 17, 2022 11:00pm Dietary Supplement capsule (9 sources) Start: 12-18-2022 End: 03-06-2023 Dietary Supplement capsule Discontinued NMA PO December 18, 2022 12:00am March 06, 2023 4:09pm Norethindrone-E.Estr adiol-Iron (15 sources) Estrogen Start: 09-15-2019 End: 06-13-2020 take 1 tablet by mouth once daily Norethindrone-E.Estrad iol-Iron (Blisovi 24 Fe) 1 mg-20 mcg (24)/75 mg (4) tablet Discontinued 1 TABLET PO DAILY September 15, 2019 4:10pm June 13, 2020 1:14pm Start: 09-15-2019 End: 06-13-2020 Norethindrone-E.Estradiol-Ir on (Blisovi 24 Fe) 1 mg-20 mcg (24)/75 mg (4) tablet Discontinued 1 {tbl} PO DAILY 19 02September 15, 2019 12:00am June 13, 2020 1:14pm Start: 09-15-2019 End: 06-13-2020 Norethindrone-E.Estradiol-Ir on (Blisovi 24 Fe) 1 mg-20 mcg (24)/75 mg (4) tablet Discontinued 1 {tbl} PO DAILY September 15, 2019 12:00am June 13, 2020 1:14pm Start: 09-15-2019 End: 06-13-2020 take 1 tablet by mouth once daily Norethindrone-E.Estradiol-Iron (Blisovi 24 Fe) 1 mg-20 mcg (24)/75 mg (4) tablet Discontinued 1 TABLET PO DAILY September 14, 2019 11:00pm June 13, 2020 12:14pm Norgestimate-Ethinyl Estradiol (20 sources) Progestin, Estrogen Start: 05-02-2019 End: 07-14-2019 Norgestimate-Ethinyl Estradiol (Sprintec (28)) 0.25-35 mg-mcg tablet Discontinued 1 {tbl} PO daily 84 1 May 02, 2019 9:56am July 14, 2019 11:52am Start: 05-02-2019 End: 07-14-2019 Norgestimate-Ethinyl Estradi ol (Sprintec (28)) 0.25-35 mg-mcg tablet Discontinued 1 {tbl} PO daily 84 May 02, 2019 9:56am July 14, 2019 11:52am Start: 05-02-2019 End: 07-14-2019 take 1 tablet by mouth once daily Norgestimate-Ethinyl Estradiol (Sprintec (28)) 0.25-35 mg-mcg tablet Discontinued 1 TABLET PO daily 84 May 02, 2019 8:56am July 14, 2019 10:52am Start: 05-02-2019 End: 07-14-2019 take 1 tablet by mouth once daily Norgestimate-Ethinyl Estradiol (Sprintec (28)) 0.25-35 mg-mcg tablet Discontinued 1 TABLET PO daily 84 May 02, 2019 9:56am July 14, 2019 11:52am Start: 06-09-2018 End: 05-02-2019 take 1 tablet by mouth once daily Norgestimate-Ethinyl Estradiol (Sprintec (28)) 0.25-35 mg-mcg tablet Discontinued 1 TABLET PO daily 84 June 09, 2018 10:08am May 02, 2019 9:57am Start: 06-09-2018 End: 05-02-2019 Norgestimate-Ethinyl Estradi ol (Sprintec (28)) 0.25-35 mg-mcg tablet Discontinued 1 {tbl} PO daily 84 3 June 09, 2018 12:00am May 02, 2019 9:57am Start: 06-09-2018 End: 05-02-2019 Norgestimate-Ethinyl Estradi ol (Sprintec (28)) 0.25-35 mg-mcg tablet Discontinued 1 {tbl} PO daily 84 June 09, 2018 12:00am May 02, 2019 9:57am Start: 06-09-2018 End: 05-02-2019 take 1 tablet by mouth once daily Norgestimate-Ethinyl Estradiol (Sprintec (28)) 0.25-35 mg-mcg tablet Discontinued 1 TABLET PO daily 84 June 08, 2018 11:00pm May 02, 2019 8:57am ferrous sulfate 60 mg/ml oral solution (7 sources) Start: 06-22-2024 End: 07-01-2024 take 300 mg by mouth once daily Ferrous Sulfate 300 mg (60 mg iron)/5 mL liquid Discontinued 300 mg PO daily June 22, 2024 12:00am July 01, 2024 10:58am FLUoxetine 20 mg oral capsule (14 sources) Serotonin Reuptake Inhibitor Start: 09-09-2022 End: 12-18-2022 take 1 capsule by mouth once daily Fluoxetine (Prozac) 20 mg capsule Discontinued 20 mg PO DAILY 30 September 09, 2022 12:00am December 18, 2022 1:59pm ibuprofen 800 mg oral tablet (15 sources) Nonsteroidal Anti-inflammator y Drug Start: 04-11-2021 End: 05-24-2021 take 1 tablet by mouth every eight hours as needed for pain Ibuprofen 800 mg tablet Discontinued 800 mg PO Q8H as needed for pain 30 7 0 April 11, 2021 1:00am May 24, 2021 2:05pm medroxyPROGESTERone acetate 10 mg oral tablet (15 sources) Progestin Start: 07-14-2019 End: 08-15-2019 Medroxyprogesterone 10 mg tablet Discontinued 10 mg PO .COMPLEX 45 0 July 14, 2019 12:00am August 15, 2019 3:56pm 10 mg PO tid until bleeding stops X 24 hour then bid to finish Rx; Multivit 89-Pnfs-Zpdwxd 1-Dha (Pnv-Dha) 27 mg iron-1 mg -300 mg capsule (12 sources) Start: 03-06-2023 End: 10-16-2023 Multivit 25-Kuky-Ilrcul 1-Dha (Pnv-Dha) 27 mg iron-1 mg -300 mg capsule Discontinued 1 NMA PO March 06, 2023 1:00am October 16, 2023 3:01pm Start: 03-06-2023 End: 10-16-2023 Multivit 97-Cvot-Ikvjgp 1-Dh a (Pnv-Dha) 27 mg iron-1 mg -300 mg capsule Discontinued 1 NMA PO March 06, 2023 1:00am October 16, 2023 3:01pm Start: 03-06-2023 Multivit 47-Ir on-Folate 1-Dha (Pnv-Dha) 27 mg iron-1 mg -300 mg capsule Active 1 CAP PO March 06, 2023 12:00am Start: 03-06-2023 Multivit 47-Ir on-Folate 1-Dha (Pnv-Dha) 27 mg iron-1 mg -300 mg capsule Active CAP PO March 06, 2023 12:00am Multivitamin With Iron (Daily Multiple Vitamins/Iron) tablet (15 sources) Start: 07-14-2019 End: 08-15-2019 take 1 tablet by mouth once daily Multivitamin With Iron (Daily Multiple Vitamins/Iron) tablet Discontinued 1 TABLET PO DAILY July 14, 2019 11:52am August 15, 2019 3:56pm Start: 07-14-2019 End: 08-15-2019 Multivitamin With Iron (Delores y Multiple Vitamins/Iron) tablet Discontinued 1 {tbl} PO DAILY July 14, 2019 12:00am August 15, 2019 3:56pm Start: 07-14-2019 End: 08-15-2019 take 1 tablet by mouth once daily Multivitamin With Iron (Daily Multiple Vitamins/Iron) tablet Discontinued 1 TABLET PO DAILY July 13, 2019 11:00pm August 15, 2019 2:56pm naproxen 500 mg oral tablet (20 sources) Nonsteroidal Anti-inflammatory Drug Start: 10-02-2023 End: 11-12-2023 take 1 tablet by mouth twice daily as needed for pain Naproxen 500 mg tablet Discontinued 500 mg PO TWICE DAILY NEEDED as needed for Pain 30 October 02, 2023 12:00am November 12, 2023 10:08am Start: 04-11-2021 End: 05-24-2021 take 1 tablet by mouth twice daily as needed for pain Naproxen 500 MG tablet Discontinued 500 mg PO TWICE DAILY NEEDED as needed for Pain 30 April 11, 2021 1:00am May 24, 2021 2:05pm Start: 08-15-2019 End: 08-21-2020 Naproxen 500 mg tablet Disco ntinued 500 mg PO 2 to 3 times per day as needed for pain 60 2 August 15, 2019 12:00am August 21, 2020 10:09am administer with food or milk norethindrone acetate 5 mg o ral tablet (20 sources) Start: 04-26-2024 End: 06-22-2024 Norethindrone Acetate 5 mg tablet Discontinued 5 mg PO .COMPLEX 45 0 April 26, 2024 1:00am June 22, 2024 2:55pm 5 mg PO tid until bleeding stops X 24 hr then bid to finish Rx Start: 06-13-2020 End: 08-21-2020 take 1 tablet by mouth three times daily, then take 1 tablet by mouth twice daily Norethindrone Acetate (Aygestin) 5 mg tablet Discontinued 5 mg PO .COMPLEX 45 0 August 01, 2020 12:00am August 21, 2020 10:09am 5 mg PO tid until bleeding stops X 24 hr then bid to finish Rx ondansetron 4 mg disintegrating oral tablet (20 sources) Serotonin-3 Receptor Antagonist Start: 04-03-2023 End: 10-16-2023 take 1 tablet by mouth every six hours as needed for nausea and vomiting Ondansetron 4 mg tablet,disintegrating Discontinued 4 mg PO EVERY 6 HOURS as needed for nausea and vomiting 60 0 April 03, 2023 1:00am October 16, 2023 3:01pm Nausea and vomiting during Vomiting of , unspecified Start: 02-18-2021 End: 04-11-2021 take 1 tablet by mouth four times daily as needed for nausea Ondansetron Hcl (Zofran) 4 MG tablet Discontinued 4 mg PO 4 TIMES DAILY NEEDED as needed for Nausea 30 2 February 18, 2021 1:00am April 11, 2021 2:48pm penicillin v potassium 250 mg oral tablet (15 sources) Start: 09-15-2019 End: 06-13-2020 take 1 tablet by mouth twice daily Penicillin V Potassium 250 mg tablet Discontinued 250 mg PO TWICE A DAY September 15, 2019 12:00am June 13, 2020 1:14pm Prenat.Vits,Gabo,Min-Iro n-Folic tablet (9 sources) Start: 08-21-2020 End: 09-09-2022 Prenat.Vits,Gabo,Min-Iron -Folic tablet Discontinued 1 {tbl} PO DAILY August 21, 2020 12:00am September 09, 2022 9:25am Start: 08-21-2020 End: 09-09-2022 Prenat.Vits,Gabo,Itp-Fqjc-Wtl ic tablet Discontinued 1 {tbl} PO DAILY August 21, 2020 12:00am September 09, 2022 9:25am spironolactone 50 mg oral tablet (15 sources) Aldosterone Antagonist Start: 06-09-2018 End: 08-15-2019 take 1 tablet by mouth once daily Spironolactone (Aldactone) 50 mg tablet Discontinued 50 mg PO DAILY June 09, 2018 12:00am August 15, 2019 3:56pm Problems Active Problems Problem Classification Problem Date Documented Date Episodic/Chronic Abdominal pain (8 sources) Abdominal pain; Translations: [Unspecified abdominal pain] 06-07-2024 Episodic Bacterial infection; unspecified site (9 sources) Bacteria present; Translations: [Streptococcus, group B, as the cause of diseases classified elsewhere] 11-12-2023 Episodic Comment on above: PCN in labor. Deficiency and other anemia (15 sources) Anemia; Translations: [Anemia, unspecified] 03-04-2021 Episodic Comment on above: add daily Fe daily Fe - pt stoppe d with bleeding this Deficiency and other anemia (11 sources) Anemia, unspecified; Translations: [Anemia, unspecified] Episodic Fetopelvic disproportion; obstruction (16 sources) Shoulder girdle dystocia; Translations: [Obstructed labor due to shoulder dystocia] Episodic Comment on above: 90 sec mild-mod kyle r brendon and magdiel, recommend 36 week growth scan and IOL at 39 with next equal or smaller EFW Menstrual disorders (15 sources) Menometrorrhagia; Translations: [Excessive and frequent menstruation with irregular cycle] 09-16-2019 Chronic Comment on above: failed provera and o cp, recommend 4 week hormonal free interval. if persistnet bleeding consider lysteda, vwd workup, or d and c. Mood disorders (20 sources) Premenstrual dysphoric disorder; Translations: [Premenstrual dysphoric disorder] 12-18-2022 Chronic Comment on above: vitex chasteberry, o ffered prozac. 03/06 Pt weaned off vitex chasteberry. Nonspecific chest pain (1 source) Chest pain, unspecified; Translations: [Chest pain, unspecified type] Onset: 08-20-2022 Episodic Other complications of ; puerperium affecting management of mother (9 sources) Deliveries by ; Translations: [Encounter for delivery without indication] 10-02-2023 Episodic Comment on above: [facility] history of s pop dystocia 7lb 11 oz girl [place] Other complications of (15 sources) Disease caused by 2019-nCoV; Translations: [Other viral diseases complicating , unspecified trimester] 04-16-2021 Episodic Comment on above: seen in triage, IVFs given, ordered zofran. plan 81 mg asa in , growth q 4 weeks. Other complications of (15 sources) Reduced movement; Translations: [Decreased movements, third trimester, not applicable or unspecified] 04-09-2021 Episodic Comment on above: nst, bpp. if persist ent consider IOL Other complications of (7 sources) Other viral diseases complicating , unspecified trimester; Translations: [Other viral diseases in the mother, antepartum condition or complication] Episodic Other complications of (3 sources) Decreased movements, third trimester, not applicable or unspecified; Translations: [Decreased movements, affecting management of mother, antepartum condition or complication] Episodic Other complications of (20 sources) High risk ; Translations: [Supervision of high risk , unspecified, unspecified trimester] 03-06-2023 Episodic Comment on above: PRR , ,JERZY , Devang PC Alfred, Boogie ,JERZY 01/26/25, P C Devang Simon, Boogie ; JERZY 01/26/25; P C: Koalina & Devang; : Boogie [id number]; JERZY 01/26/25 ; PC: Alfred & Devang; : Boogie Other complications of (1 source) Nausea and vomiting; Translations: [Vomiting of , unspecified] 04-24-2023 Episodic Other complications of (10 sources) Vomiting of , unspecified; Translations: [Unspecified vomiting of , unspecified as to episode of care or not applicable] 04-24-2023 Episodic Comment on above: 1L LR with zofran 04/23 Other complications of (1 source) Supervision of high risk , unspecified, second trimester; Translations: [Supervision of high risk , unspecified, second trimester] Onset: 10-26-2024 Episodic Other endocrine disorders (19 sources) Polycystic ovary syndrome; Translations: [Polycystic ovarian syndrome] 07-01-2024 Chronic Comment on above: NOT on Metformin Other endocrine disorders (1 source) Polycystic ovarian syndrome; Translations: [Polycystic ovarian syndrome] Onset: 10-26-2024 Chronic Other female genital disorders (15 sources) Abnormal uterine bleeding; Translations: [Abnormal uterine and vaginal bleeding, unspecified] 08-28-2020 Chronic Other infections; including parasitic (20 sources) H/O: infectious disease; Translations: [Personal history of other infectious and parasitic diseases] 07-01-2024 Episodic Comment on above: Last Other infections; including parasitic (1 source) Personal history of other infectious and parasitic diseases; Translations: [Personal history of other infectious and parasitic diseases] Onset: 10-26-2024 Episodic Other and delivery including normal (20 sources) Vaginal delivery; Translations: [Encounter for full-term uncomplicated delivery] Onset: 10-26-2024 Episodic Comment on above: 90 sec shoulder dyst ocia SM girl Kovie 39 IALshirt PRR JERZY 04/13/21 girl (surprise name) Spouse Boogie GBS neg. nl anatomy, declines genetic and carrier screen, 36 wk US normal normal anatomy. disc ussed genetic & carrier testing Discussed genetic/ca rrier testing - desires genetic w/gender Still nursing 5x/day ; desires to get baby to 1 year (September) NIPT low risk NIPT low risk, nl an atomy. Polyhydramnios and other problems of amniotic cavity (15 sources) Subchorionic hematoma; Translations: [Other specified disorders of amniotic fluid and membranes, unspecified trimester, not applicable or unspecified] 09-14-2020 Episodic Comment on above: 1cm, old. fu in 2 we eks. type and screen sent, thinks she is pos Previous (1 source) Maternal care for unspecified type scar from previous delivery; Translations: [Maternal care for unspecified type scar from previous delivery] Onset: 10-26-2024 Episodic Residual codes; unclassified (1 source) 26 weeks gestation of ; Translations: [26 weeks gestation of ] Onset: 10-26-2024 Episodic Residual codes; unclassified (1 source) 23 weeks gestation of ; Translations: [23 weeks gestation of ] Onset: 09-30-2024 Episodic Unclassified (20 sources) History of shoulder dystocia 11-12-2023 Comment on above: growth US 36 weeks. 58% growth US 36 weeks 1st ; csec w/second d/t this Unclassified (7 sources) call office tomorrow to see if OB wants to see you sooner Unclassified (1 source) Other specified diseases and conditions complicating ; Translations: [Other specified diseases and conditions complicating ] Onset: 07-07-2024 Past or Other Problems Problem Classification Problem Date Documented Da te Episodic/Chronic Hemorrhage during ; abruptio placenta; placenta previa (8 sources) Threatened miscarriage in first trimester; Translations: [Threatened ] Onset: 07-07-2024 06-29-2024 Episodic Other complications of (7 sources) Supervision of high risk , unspecified, unspecified trimester; Translations: [Supervision of unspecified high-risk ] Onset: 07-07-2024 03-10-2023 Episodic Other complications of (1 source) Supervision of high risk , unspecified, first trimester; Translations: [Supervision of high risk , unspecified, first trimester] Onset: 07-12-2024 Episodic Other screening for suspected conditions (not mental disorders or infectious disease) (1 source) Encounter for screening for other suspected endocrine disorder; Translations: [Encounter for screening for other suspected endocrine disorder] Onset: 05-10-2024 Episodic Residual codes; unclassified (1 source) 11 weeks gestation of ; Translations: [11 weeks gestation of ] Onset: 07-07-2024 Episodic Results Test Name Value Interpretation Reference Range Facility Conditioner Tumbler Operator Office Visit Reporton 10-26-2024 Conditioner Tumbler Operator Office Visit Report [facility] [address], [address] [place] [address] OFFICE VISIT Date of Service: 10/26/24 MR#: [id number] Acct: [id number] Name: LEONOR CAMACHO Rep #: [id number] : 1990 Provider: Dr. Valorie Joseph DO Age/Sex: 33/F [place] [facility] [place]: [place] Intake Vital Signs 08/03/24 08:31 08/03/24 08:57 09/30/24 08:50 10/26/24 15:56 10/26/24 15:57 Height 5 ft 2 in 5 ft 2 in 5 ft 2 in 5 ft 2 in 5 ft 2 in Weight: 165 lb BMI 30.2 BP 123/76 H Intake Visit Reasons: 27wk ob/glucose Right Of Way Agent Required: No Is patient in pain?: No Allergies No Known Allergies Allergy (Verified 10/26/24 15:56) Medications ???Medication ???Instructions ???Recorded ???Confirmed ???Type NK 07/07/24 10/26/24 History Last Menstrual Period: 01/11/23 Zika: Zika virus screening: Negative : No PFSH PFSH Medical History History of shoulder dystocia PMDD (premenstrual dysphoric disorder) Anemia PCOS (polycystic ovarian syndrome) Surgical History History of H/O oral surgery Family History Father Diabetes Type 1 Mother Hypertension Grandfather Cancer bladder Social History adopted: No household members: spouse and children number of children: 2 current occupational status: employed 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 current occupational exposures/hazards: No pets and animals: Yes pets and animals: dog(s) history of recent travel: No sexually active: Yes Smoking Status: Never smoker second hand exposure: No alcohol intake: current alcohol intake frequency: holidays/special occasions only details: Not while substance use type: does not use well-balanced diet: daily or most days caffeine: No eating out: rarely or never during the past year weight has: remained stable what type of physical activity do you participate in: walking and yoga frequency: 3-4 times per week duration: 15-30 minutes/day kofi/sikh: Jew seatbelt use: always do you feel safe at home: Yes 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 Date Name GA/Weeks Outcome Route Bth Weight Gen Labor Lgth Anesthesia Del Locatn Provider FOB 04/09/21 Alfred 39 live - full term 7lbs 9 ounces Female epidural [facility] Chantelle Hyman 10/02/23 Devang 39 live - full term 7lbs 10oz Female spinal [facility] Dr. Chantelle Hyman Delivery Date: 04/09/21 Last Updated by: Giselle Hoffmann IOL shoulder dystocia Delivery Date: 10/02/23 Last Updated by: Valencia Hawkins Primary section due to history of shoulder dystocia. Anemia, GBS + HPI 27wk ob/glucose Details: LEONOR CAMACHO is a 33 year old who presents for routine OB visit. OB Visit JERZY Calculator Estimated Delivery Date Method Current WG Current Estimate 01/26/25 Ultrasound #1 26w 6d Expected Delivery Route/Plan RLTCS with SM success rate is 78% Specific Issue/Plans Covid status: [] Flu vaccine: [] Tdap vaccine: [] Rhogam: [] LARC form signed: [] Problem list reviewed and updated with the most current plan of care details and appropriate orders placed. Relevant counseling for the gestational age provided. Continue routine care and follow up unless otherwise noted in visit notes/problem list details Initial Weight: Not Recorded Date -???-???-???-???-??? -???-???-???-???-??? -???-???- EGA Weight BP Urine Prot -???-???-???-???-??? -???-???-???-???-??? -???-???- Glucose FHR FuHt Pres Dilation -???-???-???-???-??? -???-???-???-???-??? -???-???- Effaced St Visit Note 07/07/24 -???-???-???-???-??? -???-???-???-???-??? -???-???- 11w 0d 157 lb 2 oz 139/88 -???-???-???-???-??? -???-???-???-???-??? -???-???- 180 -???-???-???-???-??? -???-???-???-???-??? -???-???- SM- CRL 3.9c m cons with LMP 08/03/24 -???-???-???-???-??? -???-???-???-???-??? -???-???- 14w 6d 157 lb 126/84 Negative -???-???-???-???-??? -???-???-???-???-??? -???-???- Negative 163 -???-???-???-???-??? -???-???-???-???-??? -???-???- MH-No VB. Na usea improved. Br US confirm FHT 09/06/24 -???-???-???-???-??? -???-???-???-???-??? -???-???- 19w 5d 159 lb 6 oz 117/77 Negative -???-???-???-???-??? -???-???-???-???-??? -???-???- Negative 160 -???-???-???-???-??? -???-???-???-???-??? -???-???- JV- long dis (more content not included)... Normal [facility] - Chemistry and C hemistry - challengeOrdered By: Indiana Lazo on 09-30-2024 Glucose Ql (U) Negative [facility] - UrinalysisOrder ed By: Indiana Lazo on 09-30-2024 Protein Ql (U) Negative [facility] Conditioner Tumbler Operator Office Visit Reporton 09-30-2024 Conditioner Tumbler Operator Office Visit Report [facility] [address], [address] [place] [address] OFFICE VISIT Date of Service: 09/30/24 MR#: [id number] Acct: [id number] Name: LEONOR CAMACHO Rep #: [id number] : 1990 Provider: RICHIE Valderrama ams Age/Sex: 33/F [place] [facility] [place]: Signed Intake Vital Signs 08/03/24 08:31 09/06/24 10:56 09/30/24 08:50 Height 5 ft 2 in 5 ft 2 in 5 ft 2 in Weight: 157 lb 159 lb 6 oz 162 lb 4 oz BMI 28.7 29.1 29.7 BP 126/84 H 117/77 124/82 H Intake Visit Reasons: 23wk ob Chief Complaint: 23wk OB Right Of [address] Agent Required: No Is patient in pain?: No Allergies No Known Allergies Allergy (Verified 09/30/24 08:48) Medications ???Medication ???Instructions ???Recorded ???Confirmed ???Type NK 07/07/24 09/30/24 History Last Menstrual Period: 01/11/23 : No PFSH PFSH Medical History History of shoulder dystocia PMDD (premenstrual dysphoric disorder) Anemia PCOS (polycystic ovarian syndrome) Surgical History History of H/O oral surgery Family History Father Diabetes Type 1 Mother Hypertension Grandfather Cancer bladder Social History adopted: No household members: spouse and children number of children: 2 current occupational status: employed 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 current occupational exposures/hazards: No pets and animals: Yes pets and animals: dog(s) history of recent travel: No sexually active: Yes Smoking Status: Never smoker second hand exposure: No alcohol intake: current alcohol intake frequency: holidays/special occasions only details: Not while substance use type: does not use well-balanced diet: daily or most days caffeine: No eating out: rarely or never during the past year weight has: remained stable what type of physical activity do you participate in: walking and yoga frequency: 3-4 times per week duration: 15-30 minutes/day kofi/sikh: Jew seatbelt use: always do you feel safe at home: Yes additional social history: : Boogie LEIGH History 3 Elective abortions Hx Para 2 Spontaneous abortions 0 Hx # Term Pregnancies 2 Ectopic pregnancies Hx # Pregnancies Multiple births # of living children 2 Past Pregnancies Del. Date Name GA/Weeks Outcome Route Bth Weight Gen Labor Lgth Anesthesia Del Locatn Provider FOB 04/09/21 Alfred 39 live - full term 7lbs 9 ounces Female epidural [facility] Chantelle Hyman 10/02/23 Devang 39 live - full term 7lbs 10oz Female spinal [facility] Dr. Chantelle Hyman Delivery Date: 04/09/21 Last Updated by: Giselle Hoffmann IOL shoulder dystocia Delivery Date: 10/02/23 Last Updated by: Valencia Hawkins Primary section due to history of shoulder dystocia. Anemia, GBS + HPI 23wk ob Details: LEONOR CAMACHO is a 33 year old who presents for routine OB visit. OB Visit JERZY Calculator Estimated Delivery Date Method Current WG Current Estimate 01/26/25 Ultrasound #1 23w 1d Expected Delivery Route/Plan RLTCS with SM success rate is 78% Specific Issue/Plans Covid status: [] Flu vaccine: [] Tdap vaccine: [] Rhogam: [] LARC form signed: [] Problem list reviewed and updated with the most current plan of care details and appropriate orders placed. Relevant counseling for the gestational age provided. Continue routine care and follow up unless otherwise noted in visit notes/problem list details Initial Weight: Not Recorded Date -???-???-???-???-??? -???-???-???-???-??? -???-???- EGA Weight BP Urine Prot -???-???-???-???-??? -???-???-???-???-??? -???-???- Glucose FHR FuHt Pres Dilation -???-???-???-???-??? -???-???-???-???-??? -???-???- Effaced St Visit Note 07/07/24 -???-???-???-???-??? -???-???-???-???-??? -???-???- 11w 0d 157 lb 2 oz 139/88 -???-???-???-???-??? -???-???-???-???-??? -???-???- 180 -???-???-???-???-??? -???-???-???-???-??? -???-???- SM- CRL 3.9c m cons with LMP 08/03/24 -???-???-???-???-??? -???-???-???-???-??? -???-???- 14w 6d 157 lb 126/84 Negative -???-???-???-???-??? -???-???-???-???-??? -???-???- Negative 163 -???-???-???-???-??? -???-???-???-???-??? -???-???- MH-No VB. Na usea improved. Br US confirm FHT 09/06/24 -???-???-???-???-??? -???-???-???-???-??? -???-???- 19w 5d 159 lb 6 oz 117/77 Negative -???-???-???-???-??? -???-???-???-???-??? -???-???- Negative 160 -???-???-???-???-??? -???-???-???-???-??? -???-???- JV- long dis cussion about success rate of 78%. we discussed that th (more content not included)... Normal [facility] - Chemistry and C hemistry - challengeOrdered By: Valorie Miller on 09-06-2024 Glucose Ql (U) Negative [facility] - UrinalysisOrder ed By: Valorie Miller on 09-06-2024 Protein Ql (U) Negative [facility] Conditioner Tumbler Operator Office Visit Reporton 09-06-2024 Conditioner Tumbler Operator Office Visit Report [facility]'s [address], [address] [place] [address] OFFICE VISIT Date of Service: 09/06/24 MR#: [id number] Acct: [id number] Name: LEONOR CAMACHO Rep #: [id number] : 1990 Provider: Dr. Valorie Joseph, Age/Sex: 33/F Location: [facility] [place] Status: Signed Intake Vital Signs 07/07/24 14:50 08/03/24 08:57 09/06/24 10:56 Height 5 ft 2 in 5 ft 2 in Weight: 159 lb 6 oz BMI 29.1 BP 117/77 Intake Visit Reasons: 20 wk ob Chief Complaint: 20wk ob Right Of [address] Agent Required: No Is patient in pain?: No Allergies No Known Allergies Allergy (Verified 09/06/24 10:54) Medications ???Medication ???Instructions ???Recorded ???Confirmed ???Type NK 07/07/24 09/06/24 History Last Menstrual Period: 01/11/23 : No PFSH PFSH Medical History History of shoulder dystocia PMDD (premenstrual dysphoric disorder) Anemia PCOS (polycystic ovarian syndrome) Surgical History History of H/O oral surgery Family History Father Diabetes Type 1 Mother Hypertension Grandfather Cancer bladder Social History adopted: No household members: spouse and children number of children: 2 current occupational status: employed 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 current occupational exposures/hazards: No pets and animals: Yes pets and animals: dog(s) history of recent travel: No sexually active: Yes Smoking Status: Never smoker second hand exposure: No alcohol intake: current alcohol intake frequency: holidays/special occasions only details: Not while substance use type: does not use well-balanced diet: daily or most days caffeine: No eating out: rarely or never during the past year weight has: remained stable what type of physical activity do you participate in: walking and yoga frequency: 3-4 times per week duration: 15-30 minutes/day kofi/sikh: Jew seatbelt use: always do you feel safe at home: Yes additional social history: : Boogie - GREGORYAC History 3 Elective abortions Hx Para 2 Spontaneous abortions 0 Hx # Term Pregnancies 2 Ectopic pregnancies Hx # Pregnancies Multiple births # of living children 2 Past Pregnancies Del. Date Name GA/Weeks Outcome Route Bth Weight Gen Labor Lgth Anesthesia Del Locatn Provider FOB 04/09/21 Alfred 39 live - full term 7lbs 9 ounces Female epidural [facility] Chantelle Hyman 10/02/23 Devang 39 live - full term 7lbs 10oz Female spinal [facility] Dr. Chantelle Hyman Delivery Date: 04/09/21 Last Updated by: Giselle Hoffmann IOL shoulder dystocia Delivery Date: 10/02/23 Last Updated by: Valencia Hawkins Primary section due to history of shoulder dystocia. Anemia, GBS + HPI 20 wk ob Details: LEONOR CAMACHO is a 33 year old who presents for routine OB visit. OB Visit JERZY Calculator Estimated Delivery Date Method Current WG Current Estimate 01/26/25 Ultrasound #1 19w 5d Expected Delivery Route/Plan RLTCS with SM success rate is 78% Specific Issue/Plans Covid status: [] Flu vaccine: [] Tdap vaccine: [] Rhogam: [] LARC form signed: [] Problem list reviewed and updated with the most current plan of care details and appropriate orders placed. Relevant counseling for the gestational age provided. Continue routine care and follow up unless otherwise noted in visit notes/problem list details Initial Weight: Not Recorded Date -???-???-???-???-??? -???-???-???-???-??? -???-???- EGA Weight BP Urine Prot -???-???-???-???-??? -???-???-???-???-??? -???-???- Glucose FHR FuHt Pres Dilation -???-???-???-???-??? -???-???-???-???-??? -???-???- Effaced St Visit Note 07/07/24 -???-???-???-???-??? -???-???-???-???-??? -???-???- 11w 0d 157 lb 2 oz 139/88 -???-???-???-???-??? -???-???-???-???-??? -???-???- 180 -???-???-???-???-??? -???-???-???-???-??? -???-???- SM- CRL 3.9c m cons with LMP 08/03/24 -???-???-???-???-??? -???-???-???-???-??? -???-???- 14w 6d 157 lb 126/84 Negative -???-???-???-???-??? -???-???-???-???-??? -???-???- Negative 163 -???-???-???-???-??? -???-???-???-???-??? -???-???- -No VB. Na usea improved. Br US confirm FHT 09/06/24 -???-???-???-???-??? -???-???-???-???-??? -???-???- 19w 5d 159 lb 6 oz 117/77 Negative -???-???-???-???-??? -???-???-???-???-??? -???-???- Negative 160 -???-???-???-???-??? -???-???-???-???-??? -???-???- JV- long dis cussion about success rate of 78%. we discussed that this does not predict baby's health after del (more content not included)... Normal [facility] - Chemistry and C hemistry - challengeOrdered By: John Ariza on 08-03-2024 Glucose Ql (U) Negative [facility] - UrinalysisOrder ed By: John Ariza on 08-03-2024 Protein Ql (U) Negative [facility] Conditioner Tumbler Operator Office Visit Reporton 08-03-2024 Conditioner Tumbler Operator Office Visit Report [facility] [address], [address] [place] [address] OFFICE VISIT Date of Service: 08/03/24 MR#: [id number] Acct: [id number] Name: LEONOR CAMACHO Rep #: [id number] : 1990 Provider: JOSETTE franco Age/Sex: 33/F [place] [facility] [place]: Signed Intake Vital Signs 06/29/24 21:24 07/07/24 14:50 08/03/24 08:31 Height 5 ft 2 in 5 ft 2 in 5 ft 2 in Weight: 157 lb BMI 28.7 BP 126/84 H Intake Visit Reasons: 15wk OB Chief Complaint: [address] Agent Required: No Is patient in pain?: No Allergies No Known Allergies Allergy (Verified 08/03/24 08:35) Medications ???Medication ???Instructions ???Recorded ???Confirmed ???Type NK 07/07/24 08/03/24 History Last Menstrual Period: 01/11/23 Zika: Zika virus screening: Negative : No PFSH PFSH Medical History History of shoulder dystocia PMDD (premenstrual dysphoric disorder) Anemia PCOS (polycystic ovarian syndrome) Surgical History History of H/O oral surgery Family History Father Diabetes Type 1 Mother Hypertension Grandfather Cancer bladder Social History adopted: No household members: spouse and children number of children: 2 current occupational status: employed 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 current occupational exposures/hazards: No pets and animals: Yes pets and animals: dog(s) history of recent travel: No sexually active: Yes Smoking Status: Never smoker second hand exposure: No alcohol intake: current alcohol intake frequency: holidays/special occasions only details: Not while substance use type: does not use well-balanced diet: daily or most days caffeine: No eating out: rarely or never during the past year weight has: remained stable what type of physical activity do you participate in: walking and yoga frequency: 3-4 times per week duration: 15-30 minutes/day kofi/sikh: Jew seatbelt use: always do you feel safe at home: Yes additional social history: : Boogie LEIGH History 3 Elective abortions Hx Para 2 Spontaneous abortions 0 Hx # Term Pregnancies 2 Ectopic pregnancies Hx # Pregnancies Multiple births # of living children 2 Past Pregnancies Del. Date Name GA/Weeks Outcome Route Bth Weight Infant Gen Labor Lgth Anesthesia Del Locatn Provider FOB 04/09/21 Koalina 39 live - full term 7lbs 9 ounces Female epidural [facility] Chantelle Hyman 10/02/23 Devang 39 live - full term 7lbs 10oz Female spinal [facility] Dr. Chantelle Hyman Delivery Date: 04/09/21 Last Updated by: Giselle Hoffmann IOL shoulder dystocia Delivery Date: 10/02/23 Last Updated by: Valencia Hawkins Primary section due to history of shoulder dystocia. Anemia, GBS + HPI 15wk OB Details: LEONOR CAMACHO is a 33 year old who presents for routine OB visit. OB Visit JERZY Calculator Estimated Delivery Date Method Current WG Current Estimate 01/26/25 Ultrasound #1 14w 6d Expected Delivery Route/Plan RLTCS with Specific Issue/Plans Covid status: [] Flu vaccine: [] Tdap vaccine: [] Rhogam: [] LARC form signed: [] Problem list reviewed and updated with the most current plan of care details and appropriate orders placed. Relevant counseling for the gestational age provided. Continue routine care and follow up unless otherwise noted in visit notes/problem list details Initial Weight: Not Recorded Date -???-???-???-???-??? -???-???-???-???-??? -???-???- EGA Weight BP Urine Prot -???-???-???-???-??? -???-???-???-???-??? -???-???- Glucose FHR FuHt Pres Dilation -???-???-???-???-??? -???-???-???-???-??? -???-???- Effaced St Visit Note 07/07/24 -???-???-???-???-??? -???-???-???-???-??? -???-???- 11w 0d 157 lb 2 oz 139/88 -???-???-???-???-??? -???-???-???-???-??? -???-???- 180 -???-???-???-???-??? -???-???-???-???-??? -???-???- SM- CRL 3.9c m cons with LMP 08/03/24 -???-???-???-???-??? -???-???-???-???-??? -???-???- 14w 6d 157 lb 126/84 Negative -???-???-???-???-??? -???-???-???-???-??? -???-???- Negative 163 -???-???-???-???-??? -???-???-???-???-??? -???-???- -No VB. Na usea improved. Br US confirm FHT ACOG First Trimester First Trimester: Desire for , Alcohol, Tobacco Cessation, Illicit/Recreational Drug/Substance Use, Intimate Partner Violence, Barriers to care, Unstable Housing, Communication Barriers, Environmental/Work Hazards, Anticipated Course of Care, Toxoplasmosis P (more content not included)... Normal [facility] PAP IG HPV APTIMA 16/18,45on 07-12-2024 ADEQ Comment Normal . [facility] Comment on above: Order Comment: Comme nts: NIPT w/gender Result Comment: Sati sfactory for evaluation. Endocervical and/or squamous metaplastic cells (endocervical component) are present. Performed By: #### L 509.8002, L3890.6006, L100.0100, L3890.6301, L509.4006, L501.9985, L3890.6102, BTS, L900.0098 #### [facility] [address] [place], [place], [id number] COMM . Normal . [facility] Comment on above: Order Comment: Comme nts: NIPT w/gender Performed By: #### L 509.8002, L3890.6006, L100.0100, L3890.6301, L509.4006, L501.9985, L3890.6102, BTS, L900.0098 #### [facility] [address] [place], [place], [id number] COMMENT Comment Normal . [facility] Comment on above: Order Comment: Comme nts: NIPT w/gender Result Comment: This liquid based ThinPrep(R) pap test was screened with the use of an image guided system. Performed By: #### L 509.8002, L3890.6006, L100.0100, L3890.6301, L509.4006, L501.9985, L3890.6102, BTS, L900.0098 #### [facility] [address] [place], [place], [id number] DIAG Comment Normal . [facility] Comment on above: Order Comment: Comme nts: NIPT w/gender Result Comment: NEGA TIVE FOR INTRAEPITHELIAL LESION OR MALIGNANCY. Performed By: #### L 509.8002, L3890.6006, L100.0100, L3890.6301, L509.4006, L501.9985, L3890.6102, BTS, L900.0098 #### [facility] [address] [place], [place], [id number] HPV APTIMA, HR Negative Normal Negative [facility] Comment on above: Order Comment: Comme nts: NIPT w/gender Result Comment: This nucleic acid amplification test detects fourteen high- risk HPV types (16,18,31,33,35,39,45,51,52,56,58,59,66,68) without differentiation. Performed By: #### L 509.8002, L3890.6006, L100.0100, L3890.6301, L509.4006, L501.9985, L3890.6102, BTS, L900.0098 #### [facility] [address] [place], [address] HPV Antoinette Rfx Comment Normal . [facility] Comment on above: Order Comment: Comme nts: NIPT w/gender Result Comment: Crit eria not met, HPV Genotype not performed. Performed at: WB - [facility] [address] [id number] E Business Manager: Noelle Sorto MD, Phone: [phone] Performed at: =G - [facility] [address] [id number] E Business Manager: Noelle Sorto MD, Phone: [phone] Performed By: #### L 509.8002, L3890.6006, L100.0100, L3890.6301, L509.4006, L501.9985, L3890.6102, BTS, L900.0098 #### [facility] [address] [place], [place], [id number] PAPSMR Comment Normal . [facility] Comment on above: Order Comment: Comme nts: NIPT w/gender Result Comment: The Pap smear is a screening test designed to aid in the detection of premalignant and malignant conditions of the uterine cervix. It is not a diagnostic procedure and should not be used as the sole means of detecting cervical cancer. Both false-positive and false-negative reports do occur. Performed By: #### L 509.8002, L3890.6006, L100.0100, L3890.6301, L509.4006, L501.9985, L3890.6102, BTS, L900.0098 #### [facility] [address] [place], [place], [id number] PERFORM Comment Normal . [facility] Comment on above: Order Comment: Comme nts: NIPT w/gender Result Comment: Ludivina Cedillo, Circus Agent (ASCP) Performed By: #### L 509.8002, L3890.6006, L100.0100, L3890.6301, L509.4006, L501.9985, L3890.6102, BTS, L900.0098 #### [facility] [address] [place], [place], [id number] Chlamydia/GC JOVITA aptimaon CHLAMY,NUC ACID Negative Normal Negative [facility] Comment on above: Performed By: #### L 509.8002, L3890.6006, L100.0100, L3890.6301, L509.4006, L501.9985, L3890.6102, BTS, L900.0098 #### [facility] [address] [place], [place], [id number] GC BY NUC ACID Negative Normal Negative [facility] Comment on above: Result Comment: Perf ormed at: =G - [facility] [id number] E Business Manager: Noelle Sorto MD, Phone: [phone] Performed By: #### L 509.8002, L3890.6006, L100.0100, L3890.6301, L509.4006, L501.9985, L3890.6102, BTS, L900.0098 #### [facility] [address] [place], [place], [id number] Urine Cultureon 07-08-2024 URC Culture exhibits no growth. Normal [facility] Comment on above: Performed By: #### L 509.8002, L3890.6006, L100.0100, L3890.6301, L509.4006, L501.9985, L3890.6102, BTS, L900.0098 #### [facility] [address] [place], [place], [id number] Absolute lymphocyte countOrd ered By: Cassandra Felixcarl on 07-07-2024 Lymphocytes Auto (Unsp spec) [#/Vol] 1.95 10*3/uL 0.83-4.51 [facility] Absolute neutrophil countOrd ered By: Cassandra Felixcarl on 07-07-2024 Neutrophils (Bld) [#/Vol] 7.0 10*3/uL 2.0-7.7 [facility] Automated lymphocyte count a s percentage of total leukocytesOrdered By: Cassandra Felixcarl on 07-07-2024 Lymphocytes/100 WBC Auto (Unsp spec) 20.5 % 19-41 [facility] Basophil percentageOrdered B y: Cassandra Felixcarl on 07-07-2024 Basophils/100 WBC (Bld) 0.2 % 0-1 [facility] CBC W/Diff, Automatedon 06-23 Absolute Lymph 1.95 X10 3/uL Normal 0.83-4.51 [facility] Comment on above: Performed By: #### L 509.8002, L3890.6006, L100.0100, L3890.6301, L509.4006, L501.9985, L3890.6102, BTS, L900.0098 #### [facility] [address] [place], [place], [id number] Absolute Neut 7.0 X10 3/uL Normal 2.0-7.7 [facility] Comment on above: Performed By: #### L 509.8002, L3890.6006, L100.0100, L3890.6301, L509.4006, L501.9985, L3890.6102, BTS, L900.0098 #### [facility] [address] [place], [address] Basophils/100 WBC (Bld) 0.2 % Normal 0-1 [facility] Comment on above: Performed By: #### L 509.8002, L3890.6006, L100.0100, L3890.6301, L509.4006, L501.9985, L3890.6102, BTS, L900.0098 #### [facility] [address] [place], [address] Eosinophils/100 WBC (Bld) 0.4 % Normal 0-5 [facility] Comment on above: Performed By: #### L 509.8002, L3890.6006, L100.0100, L3890.6301, L509.4006, L501.9985, L3890.6102, BTS, L900.0098 #### [facility] [address] [place], [address] Erythrocyte distribution width (RBC) [Ratio] 13.5 % Normal 11.6-14.6 [facility] Comment on above: Performed By: #### L 509.8002, L3890.6006, L100.0100, L3890.6301, L509.4006, L501.9985, L3890.6102, BTS, L900.0098 #### [facility] [address] [place], [address] Hematocrit (Bld) [Volume fraction] 38.7 % Normal 37-47 [facility] Comment on above: Performed By: #### L 509.8002, L3890.6006, L100.0100, L3890.6301, L509.4006, L501.9985, L3890.6102, BTS, L900.0098 #### [facility] [address] [place], [address] Hemoglobin (Bld) [Mass/Vol] 13.0 g/dL Normal 12.0-15.0 [facility] Comment on above: Performed By: #### L 509.8002, L3890.6006, L100.0100, L3890.6301, L509.4006, L501.9985, L3890.6102, BTS, L900.0098 #### [facility] [address] [place], [address] IG% 0.300 Normal 0.0-0.9 [facility] Comment on above: Result Comment: IG% - Immature Granulocytes (promyelocytes, myelocytes and metamyelocytes) > 1% indicates that a LEFT SHIFT is Present. Performed By: #### L 509.8002, L3890.6006, L100.0100, L3890.6301, L509.4006, L501.9985, L3890.6102, BTS, L900.0098 #### [facility] [address] [place], [address] Lymphocytes/100 WBC (Bld) 20.5 % Normal 19-41 [facility] Comment on above: Performed By: #### L 509.8002, L3890.6006, L100.0100, L3890.6301, L509.4006, L501.9985, L3890.6102, BTS, L900.0098 #### [facility] [address] [place], [address] MCH (RBC) [Entitic mass] 28.6 pg Normal 27.0-32.0 [facility] Comment on above: Performed By: #### L 509.8002, L3890.6006, L100.0100, L3890.6301, L509.4006, L501.9985, L3890.6102, BTS, L900.0098 #### [facility] [address] [place], [address] MCHC (RBC) [Mass/Vol] 33.6 g/dL Normal 32-36 [facility] Comment on above: Performed By: #### L 509.8002, L3890.6006, L100.0100, L3890.6301, L509.4006, L501.9985, L3890.6102, BTS, L900.0098 #### [facility] [address] [place], [address] MCV (RBC) [Entitic vol] 85.2 fL Normal 81-99 [facility] Comment on above: Performed By: #### L 509.8002, L3890.6006, L100.0100, L3890.6301, L509.4006, L501.9985, L3890.6102, BTS, L900.0098 #### [facility] [address] [place], [address] Monocytes/100 WBC (Bld) 4.7 % Normal 0-10 [facility] Comment on above: Performed By: #### L 509.8002, L3890.6006, L100.0100, L3890.6301, L509.4006, L501.9985, L3890.6102, BTS, L900.0098 #### [facility] [address] [place], [address] Neutrophils/100 WBC (Bld) 73.9 % High 47-70 [facility] Comment on above: Performed By: #### L 509.8002, L3890.6006, L100.0100, L3890.6301, L509.4006, L501.9985, L3890.6102, BTS, L900.0098 #### [facility] [address] [place], [address] Nucleated RBC (Bld) [#/Vol] 0 10*3/uL Normal 0-5 [facility] Comment on above: Performed By: #### L 509.8002, L3890.6006, L100.0100, L3890.6301, L509.4006, L501.9985, L3890.6102, BTS, L900.0098 #### [facility] [address] [place], [address] Platelet mean volume (Bld) [Entitic vol] 12.2 fL High 6.2-12.0 [facility] Comment on above: Performed By: #### L 509.8002, L3890.6006, L100.0100, L3890.6301, L509.4006, L501.9985, L3890.6102, BTS, L900.0098 #### [facility] [address] [place], [address] ( Platelets (Bld) [#/Vol] 194 10*3/uL Normal 150-450 [facility] Comment on above: Performed By: #### L 509.8002, L3890.6006, L100.0100, L3890.6301, L509.4006, L501.9985, L3890.6102, BTS, L900.0098 #### [facility] [address] [place], [address] RBC (Bld) [#/Vol] 4.54 10*6/uL Normal 4.2-5.4 [facility] Comment on above: Performed By: #### L 509.8002, L3890.6006, L100.0100, L3890.6301, L509.4006, L501.9985, L3890.6102, BTS, L900.0098 #### [facility] [address] [place], [address] RDW SD 42.0 fl Normal 35.1-43.9 [facility] Comment on above: Performed By: #### L 509.8002, L3890.6006, L100.0100, L3890.6301, L509.4006, L501.9985, L3890.6102, BTS, L900.0098 #### [facility] [address] [place], [address] WBC (Bld) [#/Vol] 9.5 10*3/uL Normal 4.4-11.0 [facility] Comment on above: Performed By: #### L 509.8002, L3890.6006, L100.0100, L3890.6301, L509.4006, L501.9985, L3890.6102, BTS, L900.0098 #### [facility] [address] [place], [place], [address] Cervical or vaginal specimen microscopic examination by liquid based cytology (reportOrdered By: Cassandra Lockhart on 07-07-2024 Cytology report Cyto stain.thin prep Doc (Cvx/Vag) Comment . [facility] Comment on above: Criteria not met, HP V Genotype not performed.Performed at: - [facility] [id number] Director: Noelle Sorto MD, Phone: [phone] at: =[facility] [id number] Director: Noelle Sorto MD, Phone: [phone] Cervical or vagninal specime n microscopic examination by cytology stain (reported asOrdered By: Cassandra Lockhart on 07-07-2024 Cytology report Cyto stain Doc (Cvx/Vag) Comment . [facility] Comment on above: The Pap smear is a s creening test designed to aid in thedetection of premalignant and malignant conditions of theuterine cervix. It is not a diagnostic procedure andshould not be used as the sole means of detecting cervicalcancer. Both false-positive and false-negative reports dooccur. Chlamydia trachomatis rRNA d etection by probe and target amplification methodOrdered By: Cassandra Lockhart on 07-07-2024 C. trachomatis rRNA JOVITA+probe Ql (Unsp spec) Negative Negative [facility] Detection in cervical specim en of any of human papilloma virus (HPV) 16, 18, 31, 33,Ordered By: Cassandra Lockhart on 07-07-2024 HPV 16+18+31+33+35+39+45+51+ 52+56+58+59+66+68 DNA Probe+sig amp Ql (Cvx) Negative Negative [facility] Comment on above: This nucleic acid am plification test detects fourteen high-risk HPV types (16,18,31,33,35,39,45,51,52,56,58,59,66,68)without differentiation. Eosinophil percentageOrdered By: Cassandra Lockhart on 07-07-2024 Eosinophils/100 WBC (Bld) 0.4 % 0-5 [facility] Erythrocyte distribution wid th ratioOrdered By: Cassandra Lockhart on 07-07-2024 Erythrocyte distribution width (RBC) [Ratio] 13.5 % 11.6-14.6 [facility] Erythrocyte distribution wid th standard deviationOrdered By: Cassandra Lockhart on 07-07-2024 Erythrocyte distribution width (RBC) [Ratio] 42.0 fl 35.1-43.9 [facility] HIVon 07-07-2024 HIV Non-Reactive Normal Nonreactive [facility] Comment on above: Result Comment: Non- Reactive Reactive Repeatedly reactive samples must be confirmed according to CDC recommended confirmatory algorithms. The subresults for either HIVAG or AHIV can be used as an aid in the selection of the confirmation algorithm for reactive samples. Send out specimens with Reactive results to [facility] for confirmation. Order the HIV antibody detection and differentiation: lc#[id number] Performed By: #### L 509.8002, L3890.6006, L100.0100, L3890.6301, L509.4006, L501.9985, L3890.6102, BTS, L900.0098 #### [facility] [address] [place], [address] Hematocrit Auto (Bld) [Volum e fraction]Ordered By: Cassandra Lockhart on 07-07-2024 Hematocrit (Bld) [Volume fraction] 38.7 % 37-47 [facility] Hemoglobin A1con 07-07-2024 HbA1c (Bld) [Mass fraction] 5.1 % Normal <=5.6 [facility] Comment on above: Result Comment: Norm al < 5.7 % Prediabetic 5.7 - 6.4 % Diabetic >or= 6.5 % Please note range changes. Performed By: #### L 400.0001 #### [facility] [address] [place], [place], [id number] Hemoglobin A1c percentageOrd ered By: Cassandra Lockhart on 07-07-2024 HbA1c (Bld) [Mass fraction] 5.1 % <5.7 [facility] Comment on above: Normal < 5.7 % Predi abetic 5.7 - 6.4 % Diabetic >or= 6.5 % Please note range changes. Hemoglobin measurementOrdere d By: Cassandra Lockhart on 07-07-2024 Hemoglobin (Bld) [Mass/Vol] 13.0 g/dL 12.0-15.0 [facility] Hepatitis C Antibodyon 07-07 Hepatitis C Ab Non-Reactive Normal Nonreactive [facility] Comment on above: Result Comment: Reac tive: Presumptive evidence of antibodies to HCV. Follow CDC recommendations for supplemental testing. Non-Reactive: Antibodies to HCV were not detected; does not exclude the possibility of exposure to HCV Reactive Results are presumptive evidence of antibodies to HCV. Follow CDC recommendations for supplemental testing. Order confirmation testing: HCV Quant by PCR testing - HCVPCR #[id number] Non Reactive: < 0.8 Equivocal: >/= 0.8 to < 1.0 Reactive: >/= 1.0 The CDC requires that a reactive/equivocal HCV antibody result be sent out for confirmation. HCV Quant by PCR testing. Performed By: #### L 509.8002, L3890.6006, L100.0100, L3890.6301, L509.4006, L501.9985, L3890.6102, BTS, L900.0098 #### [facility] [address] [place], [address] Immature granulocytes/100 WB C Auto (Bld)Ordered By: Cassandra Lockhart on 07-07-2024 Immature granulocytes/100 WBC (Bld) 0.300 % 0.0-0.9 [facility] Comment on above: IG% - Immature Granu locytes (promyelocytes, myelocytes and metamyelocytes) > 1% indicates that a LEFT SHIFT is Present. L3890.6102on 07-07-2024 HEP B Surf Ag Non-Reactive Normal Nonreactive [facility] Comment on above: Result Comment: Reac tive: Presumptive evidence of HBV. Repeatedly reactive samples must be confirmed using a neutralization test ([employer] HBsAg Confirmatory Test) Non-Reactive: HBsAg not detected; does not exclude the possibility of exposure to HBV Performed By: #### L 509.8002, L3890.6006, L100.0100, L3890.6301, L509.4006, L501.9985, L3890.6102, BTS, L900.0098 #### [facility] [address] [facility] [place], [place], [address] L509.4006on 07-07-2024 Rubella IgG REAC Normal Nonreactive [facility] Comment on above: Result Comment: Anti body Result: Interpretation Non-Reactive: Non-Immune Reactive: Immune The following results were obtained with the [employer] Rubella IgG assay. Results from assays of other manufacturers cannot be used interchangeably. Performed By: #### L 509.8002, L3890.6006, L100.0100, L3890.6301, L509.4006, L501.9985, L3890.6102, BTS, L900.0098 #### [facility] [address] [facility] [place], [place], [address] Laboratory - CytologyOrdered By: Cassandra Lockhart on 07-07-2024 Circus Agent Cyto stain Nom (Cvx/Vag) [ID] Comment . [facility] Comment on above: Teresa Cedillo Cytol ogjatin (ASCP) Laboratory - Microbiology an d Antimicrobial susceptibilityOrdered By: Cassandra Lockhatr on 07-07-2024 HBV surface Ag Ql (S) Non-Reactive Nonreactive [facility] Comment on above: Reactive: Presumptiv e evidence of HBV. Repeatedly reactive samples must be confirmed using a neutralization test ([employer] HBsAg Confirmatory Test)Non-Reactive: HBsAg not detected; does not exclude the possibility of exposure to HBV Laboratory - Miscellaneous t estsOrdered By: Cassandra Lockhart on 07-07-2024 Service comment (Unsp spec) [Interp] . . [facility] MCV (mean corpuscular volume ) determinationOrdered By: Cassandra Lockhart on 07-07-2024 MCV (RBC) [Entitic vol] 85.2 fL 81-99 [facility] Mean corpuscular hemoglobin (MCH) determinationOrdered By: Cassandra Lockhart on 07-07-2024 MCH (RBC) [Entitic mass] 28.6 pg 27.0-32.0 [facility] Mean corpuscular hemoglobin concentration (MCHC) determinationOrdered By: Cassandra Lockhart on 07-07-2024 MCHC (RBC) [Mass/Vol] 33.6 g/dL 32-36 [facility] Mean platelet volume determi nationOrdered By: Cassandra Lockhart on 07-07-2024 Platelet mean volume (Bld) [Entitic vol] 12.2 fL High 6.2-12.0 [facility] Monocyte percentageOrdered B y: Cassandra Lockhart on 07-07-2024 Monocytes/100 WBC (Bld) 4.7 % 0-10 [facility] NATERAon 07-07-2024 NATURA SEE SCANNED REPORT Normal [facility] Comment on above: Order Comment: Comme nts: NIPT w/gender Performed By: #### L 509.8002, L3890.6006, L100.0100, L3890.6301, L509.4006, L501.9985, L3890.6102, BTS, L900.0098 #### [facility] [address] [place], [address] Neisseria gonorrhoeae nuclei c acid detection by amplified probe techniqueOrdered By: Cassandra Lockhart on 07-07-2024 N. gonorrhoeae DNA JOVITA+probe Ql (Unsp spec) Negative Negative [facility] Comment on above: Performed at: =[address] [place] [id number] Director: Noelle Sorto MD, Phone: [phone] Neutrophil percentageOrdered By: Cassandra Lockhart on 07-07-2024 Neutrophils/100 WBC (Bld) 73.9 % High 47-70 [facility] No Panel InformationOrdered By: Cassandra Lockhart on 07-07-2024 Pap Smear Specimen Adequacy Comment . [facility] Comment on above: Satisfactory for chris luation. Endocervical and/or squamous metaplasticcells (endocervical component) are present. HIV (1&2) Antibody Non-Reactive Nonreactive [facility] Comment on above: Non-ReactiveReactive Repeatedly reactive samples must be confirmed according to CDC recommended confirmatory algorithms. 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 Cassandra stock MD Age/Sex: 33/F [place] [facility] [place]: Signed Intake Vital Signs 06/07/24 13:19 06/29/24 21:24 07/07/24 14:40 07/07/24 14:50 Height 5 ft 2 in 5 ft 2 in 5 ft 2 in 5 ft 2 in Weight: 157 lb 2 oz BMI 28.7 BP 139/88 H Intake Visit Reasons: New OB, unsure of LMP, saw ED for US Right Of Way Agent Required: No Is patient in pain?: No Allergies No Known Allergies Allergy (Verified 07/07/24 14:42) Medications ???Medication ???Instructions ???Recorded ???Confirmed ???Type NK 07/07/24 07/07/24 History Last Menstrual Period: 01/11/23 Zika: Zika virus screening: Negative : No PFSH PFSH Medical History History of shoulder dystocia PMDD (premenstrual dysphoric disorder) Anemia PCOS (polycystic ovarian syndrome) Surgical History History of H/O oral surgery Family History Father Diabetes Type 1 Mother Hypertension Grandfather Cancer bladder Social History adopted: No household members: spouse and children number of children: 2 current occupational status: employed 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 current occupational exposures/hazards: No pets and animals: Yes pets and animals: dog(s) history of recent travel: No sexually active: Yes Smoking Status: Never smoker second hand exposure: No alcohol intake: current alcohol intake frequency: holidays/special occasions only details: Not while substance use type: does not use well-balanced diet: daily or most days caffeine: No eating out: rarely or never during the past year weight has: remained stable what type of physical activity do you participate in: walking and yoga frequency: 3-4 times per week duration: 15-30 minutes/day kofi/sikh: Jew seatbelt use: always do you feel safe at home: Yes additional social history: : Boogie LEIGH History 3 Elective abortions Hx Para 2 Spontaneous abortions 0 Hx # Term Pregnancies 2 Ectopic pregnancies Hx # Pregnancies Multiple births # of living children 2 Past Pregnancies Del. Date Name GA/Weeks Outcome Route Bth Weight Infant Gen Labor Lgth Anesthesia Del Locatn Provider FOB 04/09/21 Alfred 39 live - full term 7lbs 9 ounces Female epidural [facility] Chantelle Hyman 10/02/23 Devang 39 live - full term 7lbs 10oz Female spinal [facility] Dr. Chantelle Hyman Delivery Date: 04/09/21 Last Updated by: Giselle Hfofmann IOL shoulder dystocia Delivery Date: 10/02/23 Last Updated by: Valencia Hawkins Primary section due to history of shoulder dystocia. Anemia, GBS + HPI New OB, unsure of LMP, saw ED for US Details: LEONOR CAMACHO is a 33 year old who presents for New OB visit. OB Visit JERZY Calculator Estimated Delivery Date Method Current WG Current Estimate 01/26/25 Ultrasound #1 11w 0d Estimated Due Date: 01/26/25 Expected Delivery Route/Plan RLTCS with Specific Issue/Plans Covid status: [] Flu vaccine: [] Tdap vaccine: [] Rhogam: [] LARC form signed: [] Problem list reviewed and updated with the most current plan of care details and appropriate orders placed. Relevant counseling for the gestational age provided. Continue routine care and follow up unless otherwise noted in visit notes/problem list details Initial Weight: Not Recorded Date -???-???-???-???-??? -???-???-???-???-??? -???-???- EGA Weight BP Urine Prot -???-???-???-???-??? -???-???-???-???-??? -???-???- Glucose FHR FuHt Pres Dilation -???-???-???-???-??? -???-???-???-???-??? -???-???- Effaced St Visit Note 07/07/24 -???-???-???-???-??? -???-???-???-???-??? -???-???- 11w 0d 157 lb 2 oz 139/88 -???-???-???-???-??? -???-???-???-???-??? -???-???- 180 -???-???-???-???-??? -???-???-???-???-??? -???-???- SM- CRL 3.9c m cons with LMP Menstrual History Last Menstrual Period: 01/11/23 Reported LMP: unknown Normal amount/duration: No Frequency in days: irregular since weeks pp On hormonal BC at conception: No hCG+: 06/06/24 Antepartum Record Genetic Screening: Congenital Heart Defect: Other, Neural Tube Defect: Other, Hemoglobinopathy Or Carrier: Other, Cystic Fibrosis: Other, Chromosome Abnormality: Other, Jose-Sachs: Other, Hemophilia: Other, Intellectual Disability/Autism: Other, Recurrent Pregna (more content not included)... Normal [facility] Platelet countOrdered By: Karen Lockhart on 07-07-2024 Platelets (Bld) [#/Vol] 194 10*3/uL 150-450 [facility] RBC Auto (Bld) [#/Vol]Ordere d By: Cassandra Lockhart on 07-07-2024 RBC (Bld) [#/Vol] 4.54 10*6/uL 4.2-5.4 [facility] Syphilis Antibodieson 2024 Syphilis Abs Non-Reactive Normal Nonreactive [facility] Comment on above: Performed By: #### L 509.8002, L3890.6006, L100.0100, L3890.6301, L509.4006, L501.9985, L3890.6102, BTS, L900.0098 #### [facility] [address] [place], [address] Type AND Screenon 07-07-2024 Ab SCREEN GEL Negative Normal [facility] Comment on above: Order Comment: PN Performed By: #### L 509.8002, L3890.6006, L100.0100, L3890.6301, L509.4006, L501.9985, L3890.6102, BTS, L900.0098 #### [facility] [address] [place], [address] Urine cultureOrdered By: Rich Lockhart on 07-07-2024 Bacteria identified Cx Nom (U) Culture exhibits no growth. [facility] White blood cell (WBC) count Ordered By: Cassandra Lockhart on 07-07-2024 WBC (Bld) [#/Vol] 9.5 10*3/uL 4.4-11.0 [facility] Absolute lymphocyte countOrd ered By: Wilbertlucero Butler on 06-29-2024 Lymphocytes Auto (Unsp spec) [#/Vol] 3.20 10*3/uL 0.83-4.51 [facility] Absolute neutrophil countOrd ered By: Wilbertlucero Butler on 06-29-2024 Neutrophils (Bld) [#/Vol] 7.3 10*3/uL 2.0-7.7 [facility] Automated lymphocyte count a s percentage of total leukocytesOrdered By: Wilbert Luke on 06-29-2024 Lymphocytes/100 WBC Auto (Unsp spec) 28.3 % 19-41 [facility] Basophil percentageOrdered B y: Wilbert Luke on 06-29-2024 Basophils/100 WBC (Bld) 0.4 % 0-1 [facility] CBC W/Diff, Automatedon Absolute Lymph 3.20 X10 3/uL Normal 0.83-4.51 [facility] Comment on above: Performed By: #### L 400.0001 #### [facility] [address] [facility] [place], [address] Absolute Neut 7.3 X10 3/uL Normal 2.0-7.7 [facility] Comment on above: Performed By: #### L 400.0001 #### [facility] [address] [place], [address] Basophils/100 WBC (Bld) 0.4 % Normal 0-1 [facility] Comment on above: Performed By: #### L 400.0001 #### [facility] [address] [facility] [place], [address] Eosinophils/100 WBC (Bld) 0.6 % Normal 0-5 [facility] Comment on above: Performed By: #### L 400.0001 #### [facility] [address] [place], [address] Erythrocyte distribution width (RBC) [Ratio] 14.5 % Normal 11.6-14.6 [facility] Comment on above: Performed By: #### L 400.0001 #### [facility] [address] [place], [address] Hematocrit (Bld) [Volume fraction] 36.4 % Low 37-47 [facility] Comment on above: Performed By: #### L 400.0001 #### [facility] [address] [place], [address] Hemoglobin (Bld) [Mass/Vol] 12.4 g/dL Normal 12.0-15.0 [facility] Comment on above: Performed By: #### L 400.0001 #### [facility] [address] [place], [address] IG% 0.400 Normal 0.0-0.9 [facility] Comment on above: Result Comment: IG% - Immature Granulocytes (promyelocytes, myelocytes and metamyelocytes) > 1% indicates that a LEFT SHIFT is Present. Performed By: #### L 400.0001 #### [facility] [address] [place], [address] Lymphocytes/100 WBC (Bld) 28.3 % Normal 19-41 [facility] Comment on above: Performed By: #### L 400.0001 #### [facility] [address] [place], [address] MCH (RBC) [Entitic mass] 28.8 pg Normal 27.0-32.0 [facility] Comment on above: Performed By: #### L 400.0001 #### [facility] [address] [place], [address] MCHC (RBC) [Mass/Vol] 34.1 g/dL Normal 32-36 [facility] Comment on above: Performed By: #### L 400.0001 #### [facility] [address] [place], [address] MCV (RBC) [Entitic vol] 84.7 fL Normal 81-99 [facility] Comment on above: Performed By: #### L 400.0001 #### [facility] [address] [place], [address] Monocytes/100 WBC (Bld) 5.9 % Normal 0-10 [facility] Comment on above: Performed By: #### L 400.0001 #### [facility] [address] [place], [address] Neutrophils/100 WBC (Bld) 64.4 % Normal 47-70 [facility] Comment on above: Performed By: #### L 400.0001 #### [facility] [address] [place], [address] Nucleated RBC (Bld) [#/Vol] 0 10*3/uL Normal 0-5 [facility] Comment on above: Performed By: #### L 400.0001 #### [facility] [address] [place], [address] Platelet mean volume (Bld) [Entitic vol] 13.3 fL High 6.2-12.0 [facility] Comment on above: Performed By: #### L 400.0001 #### [facility] [address] [place], [address] Platelets (Bld) [#/Vol] 191 10*3/uL Normal 150-450 [facility] Comment on above: Performed By: #### L 400.0001 #### [facility] [address] [place], [address] RBC (Bld) [#/Vol] 4.30 10*6/uL Normal 4.2-5.4 [facility] Comment on above: Performed By: #### L 400.0001 #### [facility] [address] [place], [address] RDW SD 43.1 fl Normal 35.1-43.9 [facility] Comment on above: Performed By: #### L 400.0001 #### [facility] [address] [place], [address] WBC (Bld) [#/Vol] 11.3 10*3/uL High 4.4-11.0 [facility] Comment on above: Performed By: #### L 400.0001 #### [facility] [address] [place], [address] Emergency Department Summary on 06-29-2024 Emergency Department Summary [facility] Medical Records Department [address] [facility] [place] [address] Emergency Department Summary 06/29/24 MR#: [id number] Acct: [id number] Name: LEONOR CAMACHO Rep #: [id number] : 1990 33 From: Wilbert Butler MD PCP: Dr. Miguel Vigil MD Status:DEP ER Location: ED HPI HPI - Female History of Present Illness Chief Complaint: Vag Bld, Preg Informant: patient Associated Symptoms P: 2 Narrative Narrative: 33-year-old female around 10 weeks G3, P2, she had some bleeding several weeks ago but it was brown, as well as some cramping so she was seen here in the ED and had an ultrasound rule out ectopic, IUP was seen. She was seen in follow-up in the office and was told that she had a subchorionic hemorrhage which she has had with her other pregnancies. Within the past couple hours she had bright red blood which is the first time during this she has seen that along with some small clots. The bleeding has not been heavy. She denies any pain, lightheadedness, syncope, or other acute symptoms tonight. She called the OB on-call and she was advised to come be evaluated. [facility] Medical History Supervision of high-risk History of shoulder dystocia Positive GBS test depression PMDD (premenstrual dysphoric disorder) Anemia PCOS (polycystic ovarian syndrome) Home Medications ???Medication ???Instructions ???Recorded ???Last Taken ???Type ferrous sulfate 300 mg (60 mg 300 mg PO QDAY 06/22/24 Unknown Hi story iron)/5 mL oral liquid Allergy/AdvReac Type Severity Reaction Status Date / Time No Known Allergies Allergy Verified 06/22/24 14:55 Family History Father Diabetes Type 1 Mother Hypertension Grandfather Cancer bladder Surgical History H/O oral surgery Social History adopted: No household members: spouse and children number of children: 1 current occupational status: employed 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 and animals: Yes pets and animals: dog(s) history of recent travel: No sexually active: Yes Smoking Status: Never smoker alcohol intake: current alcohol intake frequency: holidays/special occasions only details: none with substance use type: does not use well-balanced diet: daily or most days caffeine: No eating out: rarely or never during the past year weight has: remained stable what type of physical activity do you participate in: walking, running and weight training kofi/sikh: Jew seatbelt use: always do you feel safe at home: Yes additional social history: Boogie LEIGH 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 ROS [facility]SEL[facility] ED Constitutional Constitutional ED: Denies chills or fever(s) Eyes Eyes: Denies change in vision or diplopia ENT ENT ED: Denies rhinorrhea or sore throat Cardiovascular Cardiovascular: Denies chest pain or palpitations Respiratory/Chest Respiratory/Chest: Denies cough or dyspnea Gastrointestinal Gastrointestinal: Denies abdominal pain, diarrhea, nausea or vomiting Genitourinary Genitourinary ED: Denies dysuria or hematuria Musculoskeletal Musculoskeletal: Denies back pain or neck pain Integumentary Denies abscess or rash Neurologic Neurologic: Denies headache(s), paresthesias or weakness Psychiatric Psychiatric: Denies anxiety or suicidal thoughts EXAM Physical Exam Const Vital Signs: 06/29/24 21:24 06/29/24 23:18 06/29/24 23:24 Temperature 97.9 F Temperature Source Temporal Pulse Rate 86 Pulse Rate [Lying] 72 Pulse Rate [Sitting (for 1 minute prior to obtaining)] 84 Pulse Rate [Standing (for 1 minute prior to obtaining)] 86 Respiratory Rate 16 Blood Pressure 135/93 H 125/92 H Blood Pressure [Lying] 134/79 H Blood Pressure [Sitting (for 1 minute prior to obtaining)] 119/85 H Blood Pressure [Standing (for 1 minute prior to obtaining)] 125/92 H Blood Pressure Mean 107 103 Blood Pressure Mean [Lying] 97 Blood Pressure Mean [Sitting (for 1 minute prior to obtaining)] 96 Blood Pressure Mean [Standing (for 1 minute prior to obtaining)] 103 Pulse Ox 100 Oxygen Delivery Method Room Air 06/29/24 23:24 Temperature 97.9 F Temperature Source Pulse Rate 86 Pulse Rate [Lying] Pulse Rate [Sitting (for 1 minute prior to obtaining)] Pulse Rate [Standing (for 1 minute prior to obtaining)] Respiratory Rate 16 Blood Pressure 125/92 H Blood Pressure [Lying] Blood Pressure [Sitting (for 1 minute prior to obtaining)] Blood Pressure [Standing (for 1 minute prior to obtaining)] Blood Pr (more content not included)... Normal [facility] Eosinophil percentageOrdered By: Wilbert Butler on 06-29-2024 Eosinophils/100 WBC (Bld) 0.6 % 0-5 [facility] Erythrocyte distribution wid th ratioOrdered By: Wilbert Butler on 06-29-2024 Erythrocyte distribution width (RBC) [Ratio] 14.5 % 11.6-14.6 [facility] Erythrocyte distribution wid th standard deviationOrdered By: Wilbert Butler on 06-29-2024 Erythrocyte distribution width (RBC) [Ratio] 43.1 fl 35.1-43.9 [facility] Hematocrit Auto (Bld) [Volum e fraction]Ordered By: Wilbert Butler on 06-29-2024 Hematocrit (Bld) [Volume fraction] 36.4 % Low 37-47 [facility] Hemoglobin measurementOrdere d By: Wilbert Butler on 06-29-2024 Hemoglobin (Bld) [Mass/Vol] 12.4 g/dL 12.0-15.0 [facility] Immature granulocytes/100 WB C Auto (Bld)Ordered By: Wilbert Butler on 06-29-2024 Immature granulocytes/100 WBC (Bld) 0.400 % 0.0-0.9 [facility] Comment on above: IG% - Immature Granu locytes (promyelocytes, myelocytes and metamyelocytes) > 1% indicates that a LEFT SHIFT is Present. MCV (mean corpuscular volume ) determinationOrdered By: Wilbert Butler on 06-29-2024 MCV (RBC) [Entitic vol] 84.7 fL 81-99 [facility] Mean corpuscular hemoglobin (MCH) determinationOrdered By: Wilbert Butler on 06-29-2024 MCH (RBC) [Entitic mass] 28.8 pg 27.0-32.0 [facility] Mean corpuscular hemoglobin concentration (MCHC) determinationOrdered By: Wilbert Butler on 06-29-2024 MCHC (RBC) [Mass/Vol] 34.1 g/dL 32-36 [facility] Mean platelet volume determi nationOrdered By: Wilbert Butler on 06-29-2024 Platelet mean volume (Bld) [Entitic vol] 13.3 fL High 6.2-12.0 [facility] Monocyte percentageOrdered B y: Wilbert Butler on 06-29-2024 Monocytes/100 WBC (Bld) 5.9 % 0-10 [facility] Neutrophil percentageOrdered By: Wilbert Butler on 06-29-2024 Neutrophils/100 WBC (Bld) 64.4 % 47-70 [facility] Nucleated red blood cell per centageOrdered By: Wilbert Butler on 06-29-2024 Nucleated RBC/100 WBC (Bld) [Ratio] 0 % 0-5 [facility] Platelet countOrdered By: Jag Butler on 06-29-2024 Platelets (Bld) [#/Vol] 191 10*3/uL 150-450 [facility] RBC Auto (Bld) [#/Vol]Ordere d By: Wilbert Butler on 06-29-2024 RBC (Bld) [#/Vol] 4.30 10*6/uL 4.2-5.4 [facility] White blood cell (WBC) count Ordered By: Wilbert Butler on 06-29-2024 WBC (Bld) [#/Vol] 11.3 10*3/uL High 4.4-11.0 [facility] Absolute lymphocyte countOrd ered By: ED PROVIDER on 06-07-2024 Lymphocytes Auto (Unsp spec) [#/Vol] 1.59 10*3/uL 0.83-4.51 [facility] Absolute neutrophil countOrd ered By: ED PROVIDER on 06-07-2024 Neutrophils (Bld) [#/Vol] 9.5 10*3/uL High 2.0-7.7 [facility] Anion gap in Serum or Plasma Ordered By: ED PROVIDER on 06-07-2024 Anion gap [Moles/Vol] 11 mmol/L - [facility] Automated lymphocyte count a s percentage of total leukocytesOrdered By: ED PROVIDER on 06-07-2024 Lymphocytes/100 WBC Auto (Unsp spec) 13.3 % Low 19-41 [facility] BUN/creatinine ratioOrdered By: ED PROVIDER on 06-07-2024 Urea nitrogen/Creatinine [Mass ratio] 10.0 mg/mg 10-20 [facility] Basophil percentageOrdered B y: ED PROVIDER on 06-07-2024 Basophils/100 WBC (Bld) 0.3 % 0-1 [facility] Beta HCG ( test) Ql Ordered By: ED PROVIDER on 06-07-2024 Serum Test, Qualitative Negative [facility] Comment on above: CRITICAL VALUE MORENO D TO VINI GOTTLIEB (ER)06/07/24 1535 Ki Gacria.RESULTS READ BACK BY SAME. Bilirubin Test strip Ql (U)O rdered By: Heriberto Frazier on 06-07-2024 Bilirubin Ql (U) Negative Negative [facility] Bilirubin, totalOrdered By: ED PROVIDER on 06-07-2024 Bilirubin [Mass/Vol] 0.19 mg/dL Normal 0.00-1.30 [facility] Comment on above: Performed By: #### L [id number] #### [facility] [address] [place], [address] CBC W/Diff, Automatedon 05-24 PLT EST ADEQUATE Normal ADEQ [facility] Comment on above: Performed By: #### L [id number] #### [facility] [address] [place], [address] Carbon dioxide, total [Moles /volume] in Central venous bloodOrdered By: ED PROVIDER on 06-07-2024 CO2 [Moles/Vol] 25.2 mmol/L Normal 21.0-32.0 [facility] Comment on above: Performed By: #### L [id number] #### [facility] [address] [place], [address] Chloride assayOrdered By: ED PROVIDER on 06-07-2024 Chloride [Moles/Vol] 103 mmol/L Normal 98-108 [facility] Comment on above: Performed By: #### L [id number] #### [facility] [address] [place], [address] Comprehensive Metabolic Prof ilon 06-07-2024 ALK PHOS 115 U/L High 35-104 [facility] Comment on above: Performed By: #### L [id number] #### [facility] [address] [place], [address] BUN/CRE 10.0 RATIO Normal 10-20 [facility] Comment on above: Performed By: #### L [id number] #### [facility] [address] [place], [address] ECRCL 90.52 ml/min Normal 50-250 [facility] Comment on above: Performed By: #### L [id number] #### [facility] [address] [place], [address] GAP 11 Normal 5-15 [facility] Comment on above: Performed By: #### L [id number] #### [facility] [address] [place], [address] T PROT 7.7 g/dL Normal 5.9-8.4 [facility] Comment on above: Performed By: #### L [id number] #### [facility] [address] [place], [address] Comprehensive Metabolic Prof ilOrdered By: ED PROVIDER on 06-07-2024 AST [Catalytic activity/Vol] 17 U/L Normal <=31 [facility] Comment on above: Performed By: #### L [id number] #### [facility] [address] [place], [address] Emergency Department Summary on 06-07-2024 Emergency Department Summary [facility] Medical Records Department [address] [place] [address] Emergency Department Summary 06/07/24 MR#: [id number] Acct: [id number] Name: LEONOR CAMACHO Rep #: [id number] : 1990 33 From: Heriberto Frazier MD PCP: Dr. Miguel Vigil MD Status:REG ER Location: ED HPI History of Present Illness Chief Complaint: Abd Pain Narrative Narrative: 33-year-old female, G3, P2 presents at the direction of her [employer]SERVATOR's at [place] for evaluation for possible ectopic . She relates history that she has had a regular menses after her second child that was delivered by section 8 months ago. She has always had irregular menses because she has history of PCO/PCO candidacy. Her last menses was approximately a month ago. She had some spotting in between. She felt nauseated and vomited. She states she took multiple home test that were positive. She tried to make an appointment with her [employer] CON[employer]ATOR but they states that she needs to be ruled out for an ectopic given that she has been having a few weeks of right pelvic pain that is intermittent. [facility] Medical History (Updated 06/07/24 @ 18:50 by Heriberto Frazier MD) Supervision of high-risk History of shoulder dystocia Positive GBS test depression PMDD (premenstrual dysphoric disorder) Anemia PCOS (polycystic ovarian syndrome) Home Medications ???Medication ???Instructions ???Recorded ???Last Taken ???Type norethindrone acetate 5 mg tablet 5 mg PO .COMPLEX #45 tabs 5 Unknown Rx Allergy/AdvReac Type Severity Reaction Status Date / Time No Known Allergies Allergy Verified 06/07/24 13:19 Family History Father Diabetes Type 1 Mother Hypertension Grandfather Cancer bladder Surgical History H/O oral surgery Social History adopted: No household members: spouse and children number of children: 1 current occupational status: employed 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 pets and animals: Yes pets and animals: dog(s) history of recent travel: No sexually active: Yes Smoking Status: Never smoker alcohol intake: current alcohol intake frequency: holidays/special occasions only details: none with substance use type: does not use well-balanced diet: daily or most days caffeine: No eating out: rarely or never during the past year weight has: remained stable what type of physical activity do you participate in: walking, running and weight training kofi/sikh: Jew seatbelt use: always do you feel safe at home: Yes additional social history: [employer] 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 Cardiovascular: No chest pain. No palpitations. No pedal edema. Respiratory: No cough, no shortness of breath. Abdominal: Right lower quadrant abdominal pain. Intermittent nausea and vomiting. Genitourinary: No dysuria. No hematuria. Right sided pelvic pain. No vaginal bleeding or discharge. Musculoskeletal: No myalgias. No arthralgias. EXAM Physical Exam Narrative Exam Narrative: Afebrile. Vital signs noted. Nontoxic-appearing. Cardiovascular examination reveals a regular rate and rhythm. Lungs are clear to auscultation bilaterally. Abdomen is soft, nontender without guarding or rebound. Positive bowel sounds. Neurological examination is nonfocal and nonlateralizing. No noted pedal edema. Const Vital Signs: 06/07/24 13:19 06/07/24 16:28 06/07/24 18:00 Temperature 97.4 F L Temperature Source Temporal Pulse Rate 98 96 84 Respiratory Rate 15 Blood Pressure 135/85 H 116/82 H Blood Pressure Mean 101 93 Pulse Ox 99 100 100 Oxygen Delivery Method Room Air Room Air Room Air MDM MDM MDM Narrative Medical decision making narrative: Differential diagnosis includes but not limited to corpus luteal pain versus ectopic versus acute appendicitis versus abdominal wall pain. I have low suspicion for acute appendicitis based on her clinical examination and the length of time that she has had pain that is intermittent. I do not feel CT scanning is indicated. I reviewed her labs and she has slightly elevated white count of 12.0 which I think is nonspecific, hemoglobin 12.6 with hematocrit 37.9, platelet count normal at 198. Sodium 139, potassium 4.0, chloride 103, CO2 25.2 with BUN 8 and creatinine normal at 0.84. LFTs show alk phos slightly elevated at 115. Serum is positive. Urinalysis shows 5-10 WBCs but negative for nitrites. I will send for culture. Quantitative beta-hCG is 47,126. I reviewed the radiology report of the transvag (more content not included)... Normal [facility] Eosinophil percentageOrdered By: ED PROVIDER on 06-07-2024 Eosinophils/100 WBC (Bld) 0.2 % 0-5 [facility] Epithelial cells.squamous LM Ql (Urine sed)Ordered By: Heriberto Frazier on 06-07-2024 Epithelial cells.squamous LM.HPF (Urine sed) [#/Area] 0 /[HPF] 5-10 [facility] Erythrocyte distribution wid th (RBC) [Ratio]Ordered By: ED PROVIDER on 06-07-2024 Erythrocyte distribution width (RBC) [Entitic vol] 41.8 fL 35.1-43.9 [facility] Erythrocyte distribution wid th ratioOrdered By: ED PROVIDER on 06-07-2024 Erythrocyte distribution width (RBC) [Ratio] 13.5 % 11.6-14.6 [facility] Erythrocyte distribution wid th standard deviationOrdered By: ED PROVIDER on 06-07-2024 Erythrocyte distribution width (RBC) [Ratio] 41.8 fl 35.1-43.9 [facility] Estimation of creatinine precious aranceOrdered By: ED PROVIDER on 06-07-2024 Estimated Creatinine Clearance Calc 90.52 ml/min 50-250 [facility] GFR/1.73 sq M.predicted melia g non-blacks MDRD (S/P/Bld) [Vol rate/Area]Ordered By: ED PROVIDER on 06-07-2024 Estimated GFR (MDRD) Non-Af Amer 95 >60 [facility] Comment on above: mL/min/1.73m2 CKD-EP I Creatinine Equation (2020) Glomerular filtration rate ( GFR) estimation/1.73 sq m using serum, plasma, or whole bOrdered By: ED PROVIDER on 06-07-2024 GFR/1.73 sq M.predicted among non-blacks MDRD (S/P/Bld) [Vol rate/Area] 95 mL/min/{1.73_m2} Normal >60 [facility] Comment on above: mL/min/1.73m2 CKD-EP I Creatinine Equation (2020) Result Comment: mL/m in/1.73m2 CKD-EPI Creatinine Equation (2020) Performed By: #### L [id number] #### [facility] [address] [place], [address] Glucose Ql (U)Ordered By: Lee Frazier on 06-07-2024 Urine Glucose (UA) Normal mg/dl Normal [facility] HCG ( test) QlOrder ed By: Isidro Moran on 06-07-2024 Human Chorionic Gonadotropin, Quant 89639 mIU/mL High <9 [facility] Comment on above: Gestational Age0.2-1 Week: 5-50 mIU/mL1-2 Weeks: 50-500 mIU/mL2-3 Weeks: 100-5000 mIU/mL3-4 Weeks: 500-10,000 mIU/mL4-5 Weeks:1000-50,000 mIU/mL5-6 Weeks: 10,000-100,000 mIU/mL6-8 Weeks: 15,000-200,000 mIU/mL2-3 Months:10,000-100,000 mIU/mL Hematocrit Auto (Bld) [Volum e fraction]Ordered By: ED PROVIDER on 06-07-2024 Hematocrit (Bld) [Volume fraction] 37.9 % 37-47 [facility] Hemoglobin measurementOrdere d By: ED PROVIDER on 06-07-2024 Hemoglobin (Bld) [Mass/Vol] 12.6 g/dL 12.0-15.0 [facility] Immature granulocytes/100 WB C Auto (Bld)Ordered By: ED PROVIDER on 06-07-2024 Immature granulocytes/100 WBC (Bld) 0.500 % 0.0-0.9 [facility] Comment on above: IG% - Immature Granu locytes (promyelocytes, myelocytes and metamyelocytes) > 1% indicates that a LEFT SHIFT is Present. Ketones Test strip Ql (U)Ord ered By: Heriberto Frazier on 06-07-2024 Ketones Ql (U) Negative Negative [facility] Lipase measurementOrdered By : ED PROVIDER on 06-07-2024 Lipase [Catalytic activity/Vol] 37 U/L Normal 13-75 [facility] Comment on above: Please note:LIPASE r evised reference range effective 22. New Lipase methodology. Expected to produce lower values than the previous assay method. NEW Reference Range: 13 - 75 U/L Result Comment: Hali baker note: LIPASE revised reference range effective 22. New Lipase methodology. Expected to produce lower values than the previous assay method. NEW Reference Range: 13 - 75 U/L Performed By: #### L [id number] #### [facility] [address] [place] [address]. [place], [address] Lymphocytes Auto (Unsp spec) [#/Vol]Ordered By: ED PROVIDER on 06-07-2024 Lymphocytes (Bld) [#/Vol] 1.59 10*3/uL 0.83-4.51 [facility] Lymphocytes/100 WBC Auto (Un sp spec)Ordered By: ED PROVIDER on 06-07-2024 Lymphocytes/100 WBC (Bld) 13.3 % Low 19-41 [facility] MCV (mean corpuscular volume ) determinationOrdered By: ED PROVIDER on 06-07-2024 MCV (RBC) [Entitic vol] 84.6 fL 81-99 [facility] Mean corpuscular hemoglobin (MCH) determinationOrdered By: ED PROVIDER on 06-07-2024 MCH (RBC) [Entitic mass] 28.1 pg 27.0-32.0 [facility] Mean corpuscular hemoglobin concentration (MCHC) determinationOrdered By: ED PROVIDER on 06-07-2024 MCHC (RBC) [Mass/Vol] 33.2 g/dL 32-36 [facility] Mean platelet volume determi nationOrdered By: ED PROVIDER on 06-07-2024 Platelet mean volume (Bld) [Entitic vol] 12.1 fL High 6.2-12.0 [facility] Microscopic analysis of urin e for red blood cells (RBC)Ordered By: Heriberto Frazier on 06-07-2024 Microscopic analysis of urine for red blood cells (RBC) 0-5 SEEN /hpf 0-5 [facility] Urine RBC 0-5 SEEN /hpf 0-5 [facility] Monocyte percentageOrdered B y: ED PROVIDER on 06-07-2024 Monocytes/100 WBC (Bld) 6.3 % 0-10 [facility] Mucus LM Ql (Urine sed)Order ed By: Heriberto Frazier on 06-07-2024 Mucus Ql (Urine sed) 0 SEEN /hpf [facility] Neutrophil percentageOrdered By: ED PROVIDER on 06-07-2024 Neutrophils/100 WBC (Bld) 79.4 % High 47-70 [facility] Nitrite Test strip Ql (U)Ord ered By: Heriberto Frazier on 06-07-2024 Nitrite Ql (U) Negative Negative [facility] Nucleated red blood cell per centageOrdered By: ED PROVIDER on 06-07-2024 Nucleated RBC/100 WBC (Bld) [Ratio] 0 % 0-5 [facility] Platelet countOrdered By: ED PROVIDER on 06-07-2024 Platelets (Bld) [#/Vol] 198 10*3/uL 150-450 [facility] Platelet estimateOrdered By: ED PROVIDER on 06-07-2024 Platelets LM Ql (Bld) ADEQUATE ADEQ [facility] Platelets LM Ql (Bld)Ordered By: ED PROVIDER on 06-07-2024 Platelet Estimate ADEQUATE [facility] Potassium measurement (mass/ volume)Ordered By: ED PROVIDER on 06-07-2024 Potassium [Moles/Vol] 4.0 mmol/L Normal 3.3-5.1 [facility] Comment on above: Performed By: #### L [id number] #### [facility] [place], [address] Potassium (Unsp spec) [Mass/Vol] 4.0 mmol/L 3.3-5.1 [facility] ,Serum,hCG Quali.on 06-07-2024 HCG, SERUM QUAL Positive Normal [facility] Comment on above: Result Comment: CRIT ICAL VALUE CALLED TO VINI GOTTLIEB (ER) 06/07/24 1535 Ki Garcia. RESULTS READ BACK BY SAME. Performed By: #### L [id number] #### [facility] [address] [place], [place], [id number] Protein Test strip Ql (U)Ord ered By: Heriberto Frazier on 06-07-2024 Protein Ql (U) 15 mg/dl High Negative [facility] RBC Auto (Bld) [#/Vol]Ordere d By: ED PROVIDER on 06-07-2024 RBC (Bld) [#/Vol] 4.48 10*6/uL 4.2-5.4 [facility] Serum beta-hCG test, qualita tiveOrdered By: ED PROVIDER on 06-07-2024 Beta HCG ( test) Ql Negative [facility] Comment on above: CRITICAL VALUE MORENO D TO VINI GOTTLIEB (ER)06/07/24 1535 Ki Garcia.RESULTS READ BACK BY SAME. Serum creatinine measurement (mass/volume)Ordered By: ED PROVIDER on 06-07-2024 Creatinine [Mass/Vol] 0.84 mg/dL Normal 0.70-1.20 [facility] Comment on above: Performed By: #### L [id number] #### [facility] [address] [place], [place], [id number] Serum globulin measurementOr dered By: ED PROVIDER on 06-07-2024 Globulin (S) [Mass/Vol] 3.2 g/dL Normal 2.2-4.2 [facility] Comment on above: Performed By: #### L [id number] #### [facility] [address] [place], [address] Serum glucose measurement (m ass/volume)Ordered By: ED PROVIDER on 06-07-2024 Glucose [Mass/Vol] 123 mg/dL High 70-99 [facility] Comment on above: Performed By: #### L [id number] #### [facility] [address] [place], [address] Serum human chorionic gonado tropin detection for pregnancyOrdered By: Isidro Moran on 06-07-2024 HCG ( test) [place]l [address] mIU/mL High <9 [facility] Comment on above: Gestational Age0.2-1 Week: 5-50 mIU/mL1-2 Weeks: 50-500 mIU/mL2-3 Weeks: 100-5000 mIU/mL3-4 Weeks: 500-10,000 mIU/mL4-5 Weeks:1000-50,000 mIU/mL5-6 Weeks: 10,000-100,000 mIU/mL6-8 Weeks: 15,000-200,000 mIU/mL2-3 Months:10,000-100,000 mIU/mL Serum or plasma alanine reyna otransferase (ALT) measurementOrdered By: ED PROVIDER on 06-07-2024 ALT [Catalytic activity/Vol] 11 U/L Normal <=34 [facility] Comment on above: Performed By: #### L [id number] #### [facility] [address] [place], [address] Serum or plasma albumin halle urement (mass/volume)Ordered By: ED PROVIDER on 06-07-2024 Albumin [Mass/Vol] 4.4 g/dL Normal 3.5-5.0 [facility] Comment on above: Performed By: #### L [id number] #### [facility] [address] [place], [address] Serum or plasma albumin/glob ulin mass ratioOrdered By: ED PROVIDER on 06-07-2024 Albumin/Globulin [Mass ratio] 1.4 {ratio} Normal 0.9-2.4 [facility] Comment on above: Performed By: #### L [id number] #### [facility] [address] [place], [place], [id number] Serum or plasma alkaline veronica sphatase measurementOrdered By: ED PROVIDER on 06-07-2024 ALP [Catalytic activity/Vol] 115 U/L High 35-104 [facility] Serum or plasma calcium halle urement (mass/volume)Ordered By: ED PROVIDER on 06-07-2024 Calcium [Mass/Vol] 9.9 mg/dL Normal 7.6-11.0 [facility] Comment on above: Performed By: #### L [id number] #### [facility] [address] [place], [address] Serum or plasma urea nitroge n measurement (mass/volume)Ordered By: ED PROVIDER on 06-07-2024 Urea nitrogen [Mass/Vol] 8 mg/dL Normal 4-19 [facility] Comment on above: Performed By: #### L [id number] #### [facility] [address] [place], [address] Sodium levelOrdered By: ED P TEVIN on 06-07-2024 Sodium [Moles/Vol] 139 mmol/L Normal 133-145 [facility] Comment on above: Performed By: #### L [id number] #### [facility] [address] [place], [place], [id number] Squamous epithelial cells de tection in urine sediment by light microscopyOrdered By: Heriberto Frazier on 06-07-2024 Epithelial cells.squamous LM Ql (Urine sed) 0-5 SEEN /hpf 5-10 [facility] Total proteinOrdered By: ED PROVIDER on 06-07-2024 Protein [Mass/Vol] 7.7 g/dL 5.9-8.4 [facility] Transvaginal w/Preg USon Transvaginal w/Preg US [facility] [address] [place], [place] [id number] Transvaginal w/Preg US MR#: [id number] Acct: [id number] Name: CORINNELEONORN Rep #: [id number] : 1990 F 33 From: Nile Mirza MD PCP: Dr. Miguel Vigil MD Status: REG ER Study: Transvaginal w/Preg US Date of Exam: 06/07/24 Exam# [id number] Ordering Dr: Isidro Moran YOKE PRESSERShana PROCEDURE: TRANSVAGINAL W/PREG US 06/07/2024 REASON FOR EXAM: ABDOMINAL PAIN/BLEEDING TECHNIQUE: Transvaginal FINDINGS: Comments: Number of Gestational Sacs: 1 Gestational Sac Shape: Normal Number of Fetuses: 1 Heart Rate: 129 (average) Survey of Visible Anatomic Structures: Grossly unremarkable for gestational age. Nasal Bones: Yolk Sac: Present and unremarkable. Placenta: Presently not well-visualized Amniotic Fluid Volume: Subjectively normal for gestational age. Uterine Abnormalities: Maternal uterus is unremarkable. Ovaries / Adnexa: Both maternal ovaries are visualized and unremarkable. DIMENSIONS: Parameter Measurement / EGA Abrams Rump Length: 5 mm/6 weeks 3 days Gestational Sac: 20 mm/6 weeks 6 days Yolk Sac: 3 mm/ ESTIMATED GESTATIONAL AGE: By Ultrasound: 6 weeks 5 days By LMP: 5 weeks 2 days ESTIMATED DATE OF DELIVERY: By Ultrasound: 01/26/2025 By LMP: 02/05/2025 US/Transvaginal w/Preg US IMPRESSION: UNREMARKABLE FIRST TRIMESTER ULTRASOUND. Reading Location: [facility] CC: JOSETTE Moran; Dr. Miguel Vigil MD Resp Ther: Signed Normal [facility] Urinalysis, Completeon 06-07 EPI,SQUAMOUS 0-5 SEEN Normal 5-10 [facility] Comment on above: Order Comment: ANABELLA CTOR TO SPECIFY Performed By: #### L [id number] #### [facility] [address] [place], [place], [id number] RBC 0-5 SEEN Normal 0-5 [facility] Comment on above: Order Comment: ANABELLA CTOR TO SPECIFY Performed By: #### L [id number] #### [facility] [address] [place], [address] WBC 5-10 SEEN Normal 0-5 [facility] Comment on above: Order Comment: ANABELLA CTOR TO SPECIFY Performed By: #### L [id number] #### [facility] [address] [place], [place], [address] BACTERIA 1+ /hpf Normal None Seen [facility] Comment on above: Order Comment: ANBAELLA CTOR TO SPECIFY Performed By: #### L 400.0001 #### [facility] [address] [place], [place], [id number] Mucus Ql (Urine sed) 0 SEEN Normal [facility] Comment on above: Order Comment: ANABELLA CTOR TO SPECIFY Performed By: #### L 400.0001 #### [facility] [address] [place], [place], [id number] Urine blood detectionOrdered By: Heriberto Frazier on 06-07-2024 Urine Occult Blood Negative Negative [facility] Urine clarityOrdered By: Josee Frazier on 06-07-2024 Clarity (U) Sl. Cloudy Clear [facility] Urine color determinationOrd ered By: Heriberto Frazier on 06-07-2024 Color (U) Yellow Yellow [facility] Urine glucose detectionOrder ed By: Heriberto Frazier on 06-07-2024 Glucose Ql (U) Normal mg/dl Normal [facility] Urine leukocyte esterase det ection by dipstickOrdered By: Heriberto Frazier on 06-07-2024 Leukocyte esterase Test strip Ql (U) 25 /ul High Negative [facility] Urine pHOrdered By: Heriberto hugo on 06-07-2024 pH (U) 7.0 [pH] 5.0 - 8.0 [facility] Urine sediment bacteria coun t by microscopy (number/high power field)Ordered By: Heriberto Frazier on 06-07-2024 Bacteria LM.HPF (Urine sed) [#/Area] 1 /[HPF] None Seen [facility] Urine specific gravity measu rementOrdered By: Heriberto Frazier on 06-07-2024 Specific gravity (U) [Rel density] 1.010 1.002-1.030 [facility] Urine urobilinogen measureme ntOrdered By: Heriberto Frazier on 06-07-2024 Urobilinogen Ql (U) Normal mg/dl Normal [facility] Urobilinogen Ql (U)Ordered B y: Heriberto Frazier on 06-07-2024 Urine Urobilinogen Normal mg/dl Normal [facility] White blood cell (WBC) count Ordered By: ED PROVIDER on 06-07-2024 WBC (Bld) [#/Vol] 12.0 10*3/uL High 4.4-11.0 [facility] White blood cell countOrdere d By: Heriberto Frazier on 06-07-2024 Urine WBC 5-10 SEEN /hpf 0-5 [facility] White blood cell count 5-10 SEEN /hpf 0-5 [facility] hCG Titer Quant., Serumon HCG QUANT. 09446 mIU/mL High <9 non-preg [facility] Comment on above: Result Comment: Gest ational Age 0.2-1 Week: 5-50 mIU/mL 1-2 Weeks: 50-500 mIU/mL 2-3 Weeks: 100-5000 mIU/mL 3-4 Weeks: 500-10,000 mIU/mL 4-5 Weeks:1000-50,000 mIU/mL 5-6 Weeks: 10,000-100,000 mIU/mL 6-8 Weeks: 15,000-200,000 mIU/mL 2-3 Months:10,000-100,000 mIU/mL Performed By: #### L 400.0001 #### [facility] [place], [address] Absolute lymphocyte countOrd ered By: John Ariza on 04-26-2024 Lymphocytes Auto (Unsp spec) [#/Vol] 2.63 10*3/uL 0.83-4.51 [facility] Absolute neutrophil countOrd ered By: John Ariza on 04-26-2024 Neutrophils (Bld) [#/Vol] 5.7 10*3/uL 2.0-7.7 [facility] Automated lymphocyte count a s percentage of total leukocytesOrdered By: John Ariza on 04-26-2024 Lymphocytes/100 WBC Auto (Unsp spec) 29.6 % 19-41 [facility] Basophil percentageOrdered B y: John Ariza on 04-26-2024 Basophils/100 WBC (Bld) 0.3 % 0-1 [facility] CBC W/Diff, Automatedon Absolute Lymph 2.63 X10 3/uL Normal 0.83-4.51 [facility] Comment on above: Performed By: #### L 400.0001 #### [facility] [address] [place], [address] Absolute Neut 5.7 X10 3/uL Normal 2.0-7.7 [facility] Comment on above: Performed By: #### L 400.0001 #### [facility] [address] [place], [address] Basophils/100 WBC (Bld) 0.3 % Normal 0-1 [facility] Comment on above: Performed By: #### L 400.0001 #### [facility] [address] [place], [address] Eosinophils/100 WBC (Bld) 0.6 % Normal 0-5 [facility] Comment on above: Performed By: #### L 400.0001 #### [facility] [address] [place], [address] Erythrocyte distribution width (RBC) [Ratio] 13.2 % Normal 11.6-14.6 [facility] Comment on above: Performed By: #### L 400.0001 #### [facility] [address] [place], [address] Hematocrit (Bld) [Volume fraction] 39.7 % Normal 37-47 [facility] Comment on above: Performed By: #### L 400.0001 #### [facility] [address] [place], [address] Hemoglobin (Bld) [Mass/Vol] 12.7 g/dL Normal 12.0-15.0 [facility] Comment on above: Performed By: #### L 400.0001 #### [facility] [address] [place], [address] IG% 0.300 Normal 0.0-0.9 [facility] Comment on above: Result Comment: IG% - Immature Granulocytes (promyelocytes, myelocytes and metamyelocytes) > 1% indicates that a LEFT SHIFT is Present. Performed By: #### L 400.0001 #### [facility] [address] [place], [address] Lymphocytes/100 WBC (Bld) 29.6 % Normal 19-41 [facility] Comment on above: Performed By: #### L 400.0001 #### [facility] [address] [place], [address] MCH (RBC) [Entitic mass] 27.7 pg Normal 27.0-32.0 [facility] Comment on above: Performed By: #### L 400.0001 #### [facility] [address] [place], [address] MCHC (RBC) [Mass/Vol] 32.0 g/dL Normal 32-36 [facility] Comment on above: Performed By: #### L 400.0001 #### [facility] [address] [place], [address] MCV (RBC) [Entitic vol] 86.5 fL Normal 81-99 [facility] Comment on above: Performed By: #### L 400.0001 #### [facility] [address] [place], [address] Monocytes/100 WBC (Bld) 5.7 % Normal 0-10 [facility] Comment on above: Performed By: #### L 400.0001 #### [facility] [address] [place], [address] Neutrophils/100 WBC (Bld) 63.5 % Normal 47-70 [facility] Comment on above: Performed By: #### L 400.0001 #### [facility] [address] [place], [address] Nucleated RBC (Bld) [#/Vol] 0 10*3/uL Normal 0-5 [facility] Comment on above: Performed By: #### L 400.0001 #### [facility] [address] [place], [address] Platelet mean volume (Bld) [Entitic vol] 12.4 fL High 6.2-12.0 [facility] Comment on above: Performed By: #### L 400.0001 #### [facility] [address] [place], [address] Platelets (Bld) [#/Vol] 231 10*3/uL Normal 150-450 [facility] Comment on above: Performed By: #### L 400.0001 #### [facility] [address] [place], [address] RBC (Bld) [#/Vol] 4.59 10*6/uL Normal 4.2-5.4 [facility] Comment on above: Performed By: #### L 400.0001 #### [facility] [address] [place], [address] RDW SD 41.4 fl Normal 35.1-43.9 [facility] Comment on above: Performed By: #### L 400.0001 #### [facility] [address] [place], [address] WBC (Bld) [#/Vol] 8.9 10*3/uL Normal 4.4-11.0 [facility] Comment on above: Performed By: #### L 400.0001 #### [facility] [address] [place], [address] Eosinophil percentageOrdered By: John Ariza on 04-26-2024 Eosinophils/100 WBC (Bld) 0.6 % 0-5 [facility] Erythrocyte distribution wid th ratioOrdered By: John Ariza on 04-26-2024 Erythrocyte distribution width (RBC) [Ratio] 13.2 % 11.6-14.6 [facility] Erythrocyte distribution wid th standard deviationOrdered By: John Ariza on 04-26-2024 Erythrocyte distribution width (RBC) [Entitic vol] 41.4 fL 35.1-43.9 [facility] Erythrocyte distribution width (RBC) [Ratio] 41.4 fl 35.1-43.9 [facility] Hematocrit Auto (Bld) [Volum e fraction]Ordered By: John Ariza on 04-26-2024 Hematocrit (Bld) [Volume fraction] 39.7 % 37-47 [facility] Hemoglobin measurementOrdere d By: John Ariza on 04-26-2024 Hemoglobin (Bld) [Mass/Vol] 12.7 g/dL 12.0-15.0 [facility] Immature granulocytes/100 WB C Auto (Bld)Ordered By: John Ariza on 04-26-2024 Immature granulocytes/100 WBC (Bld) 0.300 % 0.0-0.9 [facility] Comment on above: IG% - Immature Granu locytes (promyelocytes, myelocytes and metamyelocytes) > 1% indicates that a LEFT SHIFT is Present. Lymphocytes Auto (Unsp spec) [#/Vol]Ordered By: John Ariza on 04-26-2024 Lymphocytes (Bld) [#/Vol] 2.63 10*3/uL 0.83-4.51 [facility] Lymphocytes/100 WBC Auto (Un sp spec)Ordered By: John Ariza on 04-26-2024 Lymphocytes/100 WBC (Bld) 29.6 % 19-41 [facility] MCV (mean corpuscular volume ) determinationOrdered By: John Ariza on 04-26-2024 MCV (RBC) [Entitic vol] 86.5 fL 81-99 [facility] Mean corpuscular hemoglobin (MCH) determinationOrdered By: John Ariza on 04-26-2024 MCH (RBC) [Entitic mass] 27.7 pg 27.0-32.0 [facility] Mean corpuscular hemoglobin concentration (MCHC) determinationOrdered By: John Ariza on 04-26-2024 MCHC (RBC) [Mass/Vol] 32.0 g/dL 32-36 [facility] Mean platelet volume determi nationOrdered By: John Ariza on 04-26-2024 Platelet mean volume (Bld) [Entitic vol] 12.4 fL High 6.2-12.0 [facility] Monocyte percentageOrdered B y: John Ariza on 04-26-2024 Monocytes/100 WBC (Bld) 5.7 % 0-10 [facility] Neutrophil percentageOrdered By: John Ariza on 04-26-2024 Neutrophils/100 WBC (Bld) 63.5 % 47-70 [facility] Nucleated red blood cell per centageOrdered By: John Ariza on 04-26-2024 Nucleated RBC/100 WBC (Bld) [Ratio] 0 % 0-5 [facility] Platelet countOrdered By: Brian Ariza on 04-26-2024 Platelets (Bld) [#/Vol] 231 10*3/uL 150-450 [facility] RBC Auto (Bld) [#/Vol]Ordere d By: John Ariza on 04-26-2024 RBC (Bld) [#/Vol] 4.59 10*6/uL 4.2-5.4 [facility] TSH DL <= 0.005 mIU/L QnOrde red By: John Ariza on 04-26-2024 Thyroid Stimulating Hormone (TSH) 1.850 uIU/mL 0.300-4.200 [facility] TSH Qn 1.850 uIU/mL 0.300-4.200 [facility] Thyroid Stim Hormone (TSH)on 04-26-2024 TSH 1.850 uIU/mL Normal 0.300-4.200 [facility] Comment on above: Performed By: #### L 400.0001 #### [facility] [place], [address] White blood cell (WBC) count Ordered By: John Ariza on 04-26-2024 WBC (Bld) [#/Vol] 8.9 10*3/uL 4.4-11.0 [facility] LIPID PANEL, STANDARDon Cholesterol [Mass/Vol] 254 mg/dL High <200 [facility] Comment on above: Order Comment: 0 FASTING:YES FASTING: YES Performed By: #### 7 600 #### [facility] [address], [address] [place] [address] Commercial Carpenter: Kuldeep Perez MD Cholesterol in HDL [Mass/Vol] 67 mg/dL Normal > OR = 50 [facility] Comment on above: Order Comment: 0 FASTING:YES FASTING: YES Performed By: #### 7 600 #### [facility] [address], [address] [place] [address] Commercial Carpenter: Kuldeep Perez MD Cholesterol in LDL [Mass/Vol] 169 mg/dL High [facility] Comment on above: Order Comment: 0 FASTING:YES FASTING: YES Result Comment: Refe rence range: <100 Desirable range <100 mg/dL for primary prevention; <70 mg/dL for patients with CHD or diabetic patients with > or = 2 CHD risk factors. LDL-C is now calculated using the Shun-Issa calculation, which is a validated novel method providing better accuracy than the Friedewald equation in the estimation of LDL-C. Shun BURNETT et al. RENÉ. 2013;310(19): 2567-6761 (http://education.Social Insight.[employer]/faq/JKD898) Performed By: #### 7 600 #### [facility] [address], [address] [place] [address] Commercial Carpenter: Kuldeep Perez MD Cholesterol.total/Choles terol in HDL [Mass ratio] 3.8 {ratio} Normal <5.0 [facility] Comment on above: Order Comment: 0 FASTING:YES FASTING: YES Performed By: #### 7 600 #### [facility] [address], [address] [place] [address] Commercial Carpenter: Kuldeep Perez MD NON HDL CHOLESTEROL 187 mg/dL (calc) High <130 [facility] Comment on above: Order Comment: 0 FASTING:YES FASTING: YES Result Comment: For patients with diabetes plus 1 major ASCVD risk factor, treating to a non-HDL-C goal of <100 mg/dL (LDL-C of <70 mg/dL) is considered a therapeutic option. Performed By: #### 7 600 #### [facility] [address] [place] [address], [address] Commercial Carpenter: Kuldeep Perez MD Triglyceride [Mass/Vol] 76 mg/dL Normal <150 [facility] Comment on above: Order Comment: 0 FASTING:YES FASTING: YES Performed By: #### 7 600 #### [facility] [address] [place] [address], [address] Commercial Carpenter: Kuldeep Perez MD Absolute lymphocyte countOrd ered By: Valorie Miller on 03-27-2023 Lymphocytes Auto (Unsp spec) [#/Vol] 2.34 10*3/uL 0.83-4.51 [facility] Automated lymphocyte count a s percentage of total leukocytesOrdered By: Valorie Miller on 03-27-2023 Lymphocytes/100 WBC Auto (Unsp spec) 22.2 % 19-41 [facility] Basophil percentageOrdered B y: Valorie Miller on 03-27-2023 Basophils/100 WBC (Bld) 0.4 % 0-1 [facility] Eosinophils/100 WBC (Bld) 0.4 % 0-5 [facility] Hemoglobin (Bld) [Mass/Vol] 11.9 g/dL 12.0-15.0 [facility] Monocytes/100 WBC (Bld) 5.0 % 0-10 [facility] Neutrophils (Bld) [#/Vol] 7.6 10*3/uL 2.0-7.7 [facility] Neutrophils/100 WBC (Bld) 71.7 % 47-70 [facility] WBC (Bld) [#/Vol] 10.6 10*3/uL 4.4-11.0 [facility] Determination of erythrocyte mean corpuscular volume (MCV)Ordered By: Valorie Miller on 03-27-2023 MCV (RBC) [Entitic vol] 88.2 fL 81-99 [facility] Erythrocyte distribution wid th ratioOrdered By: Valorie Miller on 03-27-2023 Erythrocyte distribution width (RBC) [Ratio] 12.5 % 11.6-14.6 [facility] Erythrocyte distribution wid th standard deviationOrdered By: Valorie Miller on 03-27-2023 Erythrocyte distribution width (RBC) [Entitic vol] 40.4 fL 35.1-43.9 [facility] HIV 1 and HIV-2 antibody ass ay with HIV-1 p24 antigen detectionOrdered By: Valorie Miller on 03-27-2023 HIV 1+2 Ab+HIV1 p24 Ag IA Ql Non-Reactive Nonreactive [facility] Hematocrit Auto (Bld) [Volum e fraction]Ordered By: Valorie Miller on 03-27-2023 Hematocrit (Bld) [Volume fraction] 36.5 % 37-47 [facility] Immature granulocytes/100 WB C Auto (Bld)Ordered By: Valorie Miller on 03-27-2023 Immature granulocytes/100 WBC (Bld) 0.300 % 0.0-0.9 [facility] Comment on above: IG% - Immature Granu locytes (promyelocytes, myelocytes and metamyelocytes) > 1% indicates that a LEFT SHIFT is Present. Laboratory - Chemistry and C hemistry - challengeon 03-27-2023 Glucose Ql (U) Negative [facility] - Hematology and Cell countsOrdered By: Valorie Miller on 03-27-2023 MCH (RBC) [Entitic mass] 28.7 pg 27.0-32.0 [facility] MCHC (RBC) [Mass/Vol] 32.6 g/dL 32-36 [facility] Nucleated RBC/100 WBC (Bld) [Ratio] 0 % 0-5 [facility] Platelets (Bld) [#/Vol] 165 10*3/uL 150-450 [facility] - Urinalysison Protein Ql (U) Negative [facility] No Panel InformationOrdered By: Valorie Miller on 03-27-2023 Hepatitis B Surface Antigen Non-Reactive Nonreactive [facility] Hepatitis C Antibody Non-Reactive Nonreactive [facility] Comment on above: Non Reactive: < 0.8 Equivocal: >/= 0.8 to < 1.0 Reactive: >/= 1.0The CDC recommends that a reactive/equivocal HCV antibody result be followed up by the HCV Nucleic Acid Amplificationtest (665352) Rubella IgG Antibody Reactive Nonreactive [facility] Comment on above: Antibody Results Int erpretation of Immune Status Non Reactive Presumed Non-Immune Equivocal Equivocal Reactive Presumed Immune Platelet mean volume Demond-Ec ker (Bld) [Entitic vol]Ordered By: Valorie Miller on 03-27-2023 Platelet mean volume (Bld) [Entitic vol] 12.6 fL 6.2-12.0 [facility] RBC Auto (Bld) [#/Vol]Ordere d By: Valorie Miller on 03-27-2023 RBC (Bld) [#/Vol] 4.14 10*6/uL 4.2-5.4 [facility] Serum Treponema species anti body detectionOrdered By: Valorie Miller on 03-27-2023 Treponema sp Ab Ql (S) Non-Reactive [facility] Chlamydia trachomatis rRNA d etection by probe and target amplification methodOrdered By: Valorie Miller on 03-10-2023 C. trachomatis rRNA JOVITA+probe Ql (Unsp spec) Negative Negative [facility] Culture, urineOrdered By: Fareed Miller on 03-10-2023 Bacteria identified Cx Nom (U) Culture exhibits no growth. [facility] - Microbiology an d Antimicrobial susceptibilityOrdered By: Valorie Miller on 03-10-2023 N. gonorrhoeae DNA JOVITA+probe Ql (Unsp spec) Negative Negative [facility] Comment on above: Performed at: =[address] [id number] Director: Noelle Sorto MD, Phone: [phone] Serum or plasma choriogonado tropin detectionOrdered By: Indiana Lazo on 02-13-2023 HCG ( [place] [address] mIU/mL <4 [facility] Comment on above: hCG levels with Gest ational AgeGestational Age hCG mIU/mL (IU/L)0.2 - 1 week 5 - 501-2 weeks 50 - 5002-3 weeks 100 - 69619-9 weeks 500 - 949869-9 weeks 1000 - 829194-6 weeks 22351 - 100,0006-8 weeks 34381 - 200,0002-3 months 30896 - 100,000 Serum or plasma choriogonado tropin detectionOrdered By: Cassandra Lockhart on 02-11-2023 HCG ( test) Ql 7773 mIU/mL <4 [facility] Comment on above: hCG levels with Gest ational AgeGestational Age hCG mIU/mL (IU/L)0.2 - 1 week 5 - 501-2 weeks 50 - 5002-3 weeks 100 - 23620-0 weeks 500 - 438877-5 weeks 1000 - 896379-9 weeks 09260 - 100,0006-8 weeks 76950 - 200,0002-3 months 30794 - 100,000 B-HCG SerPl-aCncon 3 HCG.beta subunit Qn m[IU]/mL Normal <5.0 [facility] Comment on above: Order Comment: Speci men Type: BLOOD SPECIMENOrdering Facility: [facility] Address: [address] [place] [address] Result Comment: Nega tive Performed By: #### 2 4323-8, 3040-3, 30279-3, 96902-9 ####[facility] [id number] [address] [facility] CBC panel Auto (Bld)on 08-20 Erythrocyte distribution width (RBC) [Ratio] 12.6 % Normal 11.5-15.0 [facility] Comment on above: Order Comment: Speci men Type: BLOOD SPECIMEN Ordering Facility: [facility] Address: [address] [place] [address] Performed By: #### 5 8410-2 #### [facility] CLIA [id number] [address] Hematocrit (Bld) [Volume fraction] 40.0 % Normal 36.0-46.0 [facility] Comment on above: Order Comment: Speci men Type: BLOOD SPECIMEN Ordering Facility: [facility] Address: [address] [place] [address] Performed By: #### 5 8410-2 #### [facility] [place] [facility] CLIA [id number] [address] [place] [address] Hemoglobin (Bld) [Mass/Vol] 13.2 g/dL Normal 11.5-15.5 [facility] Comment on above: Order Comment: Speci men Type: BLOOD SPECIMEN Ordering Facility: [facility] Address: [address] [place] [address] Performed By: #### 5 8410-2 #### [facility] CLIA [id number] [address] [place] [address] OF [place] MCH (RBC) [Entitic mass] 29.4 pg Normal 26.0-34.0 [facility] Comment on above: Order Comment: Speci men Type: BLOOD SPECIMEN Ordering Facility: [facility] Address: [address] [place] [address] Performed By: #### 5 8410-2 #### [facility] CLIA [id number] [address] [place] [address] [place] MCHC (RBC) [Mass/Vol] 33.0 g/dL Normal 30.5-36.0 [facility] Comment on above: Order Comment: Speci men Type: BLOOD SPECIMEN Ordering Facility: [facility] Address: [address] [place] [address] Performed By: #### 5 8410-2 #### [facility] [place] [facility] CLIA [id number] [address] [place] [address] STATES [facility] MCV (RBC) [Entitic vol] 89.1 fL Normal 80.0-100.0 [facility] Comment on above: Order Comment: Speci men Type: BLOOD SPECIMEN Ordering Facility: [facility] Address: [address] [place] [address] Performed By: #### 5 8410-2 #### [facility] [place] [facility] CLIA [id number] [address] [place] [address] [place] Platelet mean volume (Bld) [Entitic vol] 12.5 fL Normal 9.0-12.7 [facility] Comment on above: Order Comment: Speci men Type: BLOOD SPECIMEN Ordering Facility: [facility] Address: [address] [place] [address] Performed By: #### 5 8410-2 #### [facility] [place] [facility] CLIA [id number] [address] [place] [address] [place] Platelets (Bld) [#/Vol] 187 10*3/uL Normal 150-400 [facility] Comment on above: Order Comment: Speci men Type: BLOOD SPECIMEN Ordering Facility: [facility] Address: [address] [place] [address] Performed By: #### 5 8410-2 #### [facility] CLIA [id number] [address] [place] [address] STATES OF [facility] RBC (Bld) [#/Vol] 4.49 10*6/uL Normal 3.90-5.20 [facility] Comment on above: Order Comment: Speci men Type: BLOOD SPECIMEN Ordering Facility: [facility] Address: [address] [place] [address] Performed By: #### 5 8410-2 #### [facility] CLIA [id number] [address] [place] [address] [place] WBC (Bld) [#/Vol] 10.62 10*3/uL Normal 3.70-11.00 [facility] Comment on above: Order Comment: Speci men Type: BLOOD SPECIMEN Ordering Facility: [facility] Address: [address] [place] [address] Performed By: #### 5 8410-2 #### [facility] [place] [facility] CLIA [id number] [address] OF [place] Comprehensive metabolic 2000 panelon 08-20-2022 Albumin [Mass/Vol] 4.5 g/dL Normal 3.9-4.9 [facility] Comment on above: Order Comment: Speci men Type: BLOOD SPECIMENOrdering Facility: [facility] Address: [address] [place], [place] [address] Performed By: #### 2 4323-8, 3040-3, 97090-4, 35332-0 ####[facility] [place] LABCLIA [id number] [facility] [place] [address] [place] ALP [Catalytic activity/Vol] 97 U/L Normal 34-123 [facility] Comment on above: Order Comment: Speci men Type: BLOOD SPECIMENOrdering Facility: [facility] Address: [address] [place] [address] Performed By: #### 2 4323-8, 3040-3, 68955-2, 13607-0 ####[facility] [place] LABCLIA [id number] [place] [address] [facility] ALT With P-5'-P [Catalytic activity/Vol] 11 U/L Normal 7-38 [facility] Comment on above: Order Comment: Speci men Type: BLOOD SPECIMENOrdering Facility: [facility] Address: [address] [place] [address] Performed By: #### 2 4323-8, 3040-3, 10999-8, 58652-9 ####[facility] [place] LABCLIA [id number] [facility] [place] [address] [place] OF [facility] Anion gap [Moles/Vol] 13 mmol/L Normal 9-18 [facility] Comment on above: Order Comment: Speci men Type: BLOOD SPECIMENOrdering Facility: [facility] Address: [address] [place], [place] [address] Performed By: #### 2 4323-8, 3040-3, 96255-3, 35642-1 ####[facility] [place] LABCLIA [id number] [place] [address] [facility] AST With P-5'-P [Catalytic activity/Vol] 13 U/L Normal 13-35 [facility] Comment on above: Order Comment: Speci men Type: BLOOD SPECIMENOrdering Facility: [facility] Address: [address] Performed By: #### 2 4323-8, 3040-3, 17441-7, 70436-2 ####[facility] [place] LABCLIA [id number] [place] [address] [place] Bilirubin [Mass/Vol] mg/dL Low 0.2-1.3 [facility] Comment on above: Order Comment: Speci men Type: BLOOD SPECIMENOrdering Facility: [facility] Address: [address] [place] [address] Performed By: #### 2 4323-8, 3040-3, 58196-2, 95829-5 ####[facility] LABCLIA [id number] [place] [address] [place] Calcium [Mass/Vol] 9.3 mg/dL Normal 8.5-10.2 [facility] Comment on above: Order Comment: Speci men Type: BLOOD SPECIMENOrdering Facility: [facility] Address: [address] [place] [address] Performed By: #### 2 4323-8, 3040-3, 74769-4, ####[facility] LABCLIA [id number] [place] [address] [place] Chloride [Moles/Vol] 102 mmol/L Normal 97-105 [facility] Comment on above: Order Comment: Speci men Type: BLOOD SPECIMENOrdering Facility: [facility] Address: [address] [place], [place] [address] Performed By: #### 2 4323-8, 3040-3, 00232-0, 77264-4 ####[facility] LABCLIA [id number] [place] [address] [place] CO2 [Moles/Vol] 22 mmol/L Normal 22-30 [facility] Comment on above: Order Comment: Speci men Type: BLOOD SPECIMENOrdering Facility: [facility] Address: [address] Performed By: #### 2 4323-8, 3040-3, 28403-6, 25172-5 ####[facility] LABIA [id number] [place] [address] [place] Creatinine [Mass/Vol] 0.76 mg/dL Normal 0.58-0.96 [facility] Comment on above: Order Comment: Marily hernandez Type: BLOOD SPECIMENOrdering Facility: [facility] Address: [address] [place] [address] Performed By: #### 2 4323-8, 3040-3, 10012-8, 12459-8 ####[facility] LABIA [id number] [place] [address] [place] ESTIMATED GLOMERULAR FILTRATION RATE 108 mL/min/1.73m??? Normal >=60 [facility] Comment on above: Order Comment: Marily hernandez Type: BLOOD SPECIMENOrdering Facility: [facility] Address: [address] [address] Result Comment: Ilana mated Glomerular Filtration Rate (eGFR) is calculated using the 2020 CKD-EPI creatinine equation. This equation utilizes serum creatinine, sex, and age as parameters. The creatinine assay has traceable calibration to isotope dilution-mass spectrometry. Refer to KDIGO guidelines for clinical interpretation. In patients with unstable renal function, e.g. those with acute kidney injury, the eGFR may not accurately reflect actual GFR. Performed By: #### 2 4323-8, 3040-3, 83895-7, ####[facility] LABIA [id number] [place] [address] [place] Glucose [Mass/Vol] 94 mg/dL Normal 74-99 [facility] Comment on above: Order Comment: Marily hernandez Type: BLOOD SPECIMENOrdering Facility: [facility] Address: [address] [address] Result Comment: The [place] [employer] (ADA) provides guidance for cutoff values for fasting glucose and random glucose. The ADA defines fasting as no caloric intake for at least 8 hours. Fasting plasma glucose results between 100 to 125 mg/dL indicate increased risk for diabetes (prediabetes). Fasting plasma glucose results greater than or equal to 126 mg/dL meet the criteria for diagnosis of diabetes. In the absence of unequivocal hyperglycemia, results should be confirmed by repeat testing. In a patient with classic symptoms of hyperglycemia or hyperglycemic crisis, random plasma glucose results greater than or equal to 200 mg/dL meet the criteria for diagnosis of diabetes. Reference: Standards of Medical Care in Diabetes 2016, [place] [employer] Association. Diabetes Care. 2016.39(Suppl 1). Performed By: #### 2 4323-8, 3040-3, 44569-5, 33356-6 ####[facility] LABCLIA [id number] [place] [address] [place] Potassium [Moles/Vol] 3.7 mmol/L Normal 3.7-5.1 [facility] Comment on above: Order Comment: Speci men Type: BLOOD SPECIMENOrdering Facility: [facility] Address: [address] [address] Performed By: #### 2 4323-8, 3040-3, 93200-3, 99814-5 ####[facility] LABIA [id number] [place] [address] [place] Protein [Mass/Vol] 7.5 g/dL Normal 6.3-8.0 [facility] Comment on above: Order Comment: Speci men Type: BLOOD SPECIMENOrdering Facility: [facility] Address: [address] [address] Performed By: #### 2 4323-8, 3040-3, 49333-3, 18215-4 ####[facility] LABIA [id number] [place] [address] [place] Sodium [Moles/Vol] 137 mmol/L Normal 136-144 [facility] Comment on above: Order Comment: Speci men Type: BLOOD SPECIMENOrdering Facility: [facility] Address: [address] [address] Performed By: #### 2 4323-8, 3040-3, 85178-4, 56230-4 ####[facility] LABCLIA [id number] [place] [address] [facility] Urea nitrogen [Mass/Vol] 14 mg/dL Normal 7-21 [facility] Comment on above: Order Comment: Speci men Type: BLOOD SPECIMENOrdering Facility: [facility] Address: [address] [place] [address] Performed By: #### 2 4323-8, 3040-3, 78289-0, 76105-3 ####[facility] LABCLIA [id number] [place] [address] [facility] [place] D dimer FEU PPP-mCncon 08-20 Fibrin D-dimer FEU (PPP) [Mass/Vol] 230 ng/mL FEU Normal <500 [facility] Comment on above: Order Comment: Speci men Type: BLOOD SPECIMEN Ordering [facility] Address: [address] [place] [address] Performed By: #### 4 8065-7 #### [facility] CLIA [id number] [address] [place] [address] [facility] ECG COMPLETEon 08-20-2022 ECG COMPLETE Ventricular Rate : 73 BPM Atrial Rate : 73 BPM P-R Interval : 142 ms QRS Duration : 92 ms Q-T Interval : 376 ms QTC Calculation(Bazett) : 414 ms Calculated P Ivanhoe : 61 degrees Calculated R Ivanhoe : 23 degrees Calculated T Ivanhoe : 31 degrees NORMAL SINUS RHYTHM WITH SINUS ARRHYTHMIA RSR' OR QR PATTERN IN V1 SUGGESTS RIGHT VENTRICULAR CONDUCTION DELAY BORDERLINE ECG NO PREVIOUS ECGS AVAILABLE Confirmed by MD DILLARD VINAYAK ([id number]) on 08/21/2022 11:12:42 AM NAME : LEONOR CAMACHO PID : [id number] : 1990 Gender : Female Race : ORD : [id number] Procedure Date : Aug 20 2022 00:15:20 Edit Date : Aug 21 2022 11:12:42 Diagnosis: NORMAL SINUS RHYTHM WITH SINUS ARRHYTHMIA RSR' OR QR PATTERN IN V1 SUGGESTS RIGHT VENTRICULAR CONDUCTION DELAY BORDERLINE ECG NO PREVIOUS ECGS AVAILABLE Confirmed by MD DILLARD VINAYAK ([id number]) on 08/21/2022 11:12:42 AM Test Reason : cp Location : 150 : [facility] Overread By : MD DILLARD VINAYAK Edited By : MD DILLARD VINAYAK Referred By : Marixa, Acquired by : EILEEN OVERTON [facility] ED NOTEon 08-20-2022 ED NOTE HNO ID: [id number] Author: Hi Stanley RN Service: Emergency Medicine Author Type: Registered Nurse Type: ED Notes Filed: 08/20/2022 3:51 AM Note Text: Patient discharge instructions given to patient, patient educated on discharge instructions. Patient denied having questions at this time regarding discharge instructions. Patient discharged home at this time with patient's spouse. Patient ambulated out of the emergency department with a steady gait at this time. [facility] ED NOTE HNO ID: [id number] Author: Hi Stanley RN Service: Emergency Medicine Author Type: Registered Nurse Type: ED Notes Filed: 08/20/2022 3:50 AM Note Text: Physician at bedside. [facility] ED NOTE HNO ID: [id number] Author: Hi Stanley RN Service: Emergency Medicine Author Type: Registered Nurse Type: ED Notes Filed: 08/20/2022 2:10 AM Note Text: installation tech at bedside for xray. [facility] ED NOTE HNO ID: [id number] Author: Hi Stanley RN Service: Emergency Medicine Author Type: Registered Nurse Type: ED Notes Filed: 08/20/2022 12:12 AM Note Text: RT at bedside for EKG. [facility] ED PROV NOTEon 08-20-2022 ED PROV NOTE HNO ID: [id number] Author: Leatha Calvin MD Service: Emergency Medicine Author Type: Physician Type: ED Provider Notes Filed: 08/20/2022 4:14 AM Note Text: ED Provider Note Patient Name: Leonor Camacho : 1990 SERVICE DATE: 08/20/22 History Patient presents with: Chest Pain Arm Pain Patient presents the emergency room for concerns over sudden onset of chest pain, left arm numbness and pain. Symptoms began approximate 1045 today, the patient is changing closely for shower, and she had the above symptoms that started immediately. Patient rested to debris breathing, and the symptoms resolved after approximately 20 minutes. Patient had 1 episode of symptoms very similar approximately a week ago, however resolved quickly after a few minutes. Patient took no medications for the above. Patient has no recent cough, congestion, difficulty breathing or leg swelling. No previous or family history of young cardiac disease, PE, DVT, or known coagulopathy. Patient is a non-smoker. She does not take control. History of PCOS reported. Chest Pain Pain location: Substernal area Pain quality: sharp Pain radiates to: L arm Pain severity: Mild Onset quality: Sudden Duration: 20 minutes Timing: Intermittent Progression: Partially resolved Chronicity: New Context: not breathing, not movement and not trauma Relieved by: Nothing Worsened by: Nothing Ineffective treatments: None tried Associated symptoms: no abdominal pain, no heartburn, no lower extremity edema, no nausea, no palpitations, no shortness of breath, no syncope, no vomiting and no weakness Risk factors: no aortic disease, no control, no coronary artery disease, no high cholesterol, no hypertension, not male, not , no prior DVT/PE, no smoking and no surgery PAST MEDICAL HISTORY Diagnosis Date PCOS (polycystic ovarian syndrome) PAST SURGICAL HISTORY Procedure Laterality Date NONE FAMILY HISTORY Problem Relation Age of Onset Ischemic Heart Disease Maternal Grandfather Hypertension Mother Diabetes Mother Cancer Maternal Grandfather Urinary bladder ca other (PCOS [Other]) Mother Social History Tobacco Use Smoking status: Never Smokeless tobacco: Never Vaping Use Vaping Use: Never used Substance and Sexual Activity Alcohol use: Yes Alcohol/week: 2.5 standard drinks Types: 2 Standard drinks or equivalent, 1 Cans of Beer (12oz) per week Comment: "once or twice a month." Drug use: No Sexual activity: Not on file ALLERGIES No Known Allergies Review of Systems Respiratory: Negative for shortness of breath. Cardiovascular: Positive for chest pain. Negative for palpitations and syncope. Gastrointestinal: Negative for abdominal pain, heartburn, nausea and vomiting. Neurological: Negative for weakness. All other systems reviewed and are negative. Physical Exam Vitals BP Pulse Temp Temp src Resp SpO2 Weight Height 08/20/22 0010 08/20/22 0010 08/20/22 0012 08/20/22 0012 08/20/22 0010 08/20/22 0010 08/20/22 0010 08/20/22 0010 129/89 75 36.9 ?C (98.5 ?F) Temporal 16 99 % 74.8 kg (165 lb) 1.575 m (5' 2") Physical Exam Vitals and nursing note reviewed. Constitutional: General: She is not in acute distress. Appearance: Normal appearance. She is well-developed. She is not ill-appearing or toxic-appearing. HENT: Head: Normocephalic and atraumatic. Eyes: General: Right eye: No discharge. Left eye: No discharge. Cardiovascular: Rate and Rhythm: Normal rate and regular rhythm. Pulses: Carotid pulses are 1+ on the right side and 1+ on the left side. Pulmonary: Effort: No tachypnea, accessory muscle usage or respiratory distress. Breath sounds: No decreased breath sounds, wheezing or rhonchi. Abdominal: Palpations: Abdomen is soft. There is no mass. Tenderness: There is no guarding. Musculoskeletal: General: Normal range of motion. Right lower leg: No tenderness. No edema. Left lower leg: No edema. Skin: General: Skin is warm and dry. Neurological: General: No focal deficit present. Mental Status: She is alert and oriented to person, place, and time. Mental status is at baseline. Psychiatric: Mood and Affect: Mood normal. Behavior: Behavior normal. Diagnostic Testing ED Labs Ordered and Reviewed - No data to display Procedures ED Course / Clinical Impression Clinical Impressions as of 08/20/22 0412 Chest pain, unspecified type MDM / Disposition / Plan 31-year-old female with history of PCOS, presents the emergency room with concerns over rather sudden onset of chest pain, radiation to left arm, with paresthesias today with a CV [place] which she was closed, getting ready for shower. Patient took nothing for her symptoms, and they seem to resolve in the next 20 minutes. Patient had a similar episode a week ago however shorter duration. There is no history of cardiac disease, PE, D (more content not included)... Normal [facility] HIGH SENSITIVITY TROPONIN T (INITIAL)on 08-20-2022 HIGH SENSITIVITY LIZZETH <6 Normal <12 [facility] Comment on above: Order Comment: Speci men Type: BLOOD SPECIMEN Ordering Facility: [facility] Address: [facility] [place] [address] Result Comment: When assessing risk for acute coronary syndromes: In patients undergoing blood draw greater than or equal to 2 hours from symptom onset, with history of very low to moderate risk and non-ischemic ECG, an initial hs-Troponin T less than 12 ng/L AND a 1 hour delta hs-Troponin T less than 3 ng/L should be considered very low risk for 30 day MACE. Performed By: #### L [id number] #### [facility] CLIA [id number] [address] [place] [address] [place] HIGH SENSITIVITY TROPONIN T (SECOND)on 08-20-2022 HIGH SENSITIVITY LIZZETH <6 Normal <12 [facility] Comment on above: Order Comment: Marily hernandez Type: BLOOD SPECIMEN Ordering Facility: [facility] Address: [address] [place] [address] Result Comment: When assessing risk for acute coronary syndromes: In patients undergoing blood draw greater than or equal to 2 hours from symptom onset, with history of very low to moderate risk and non-ischemic ECG, an initial hs-Troponin T less than 12 ng/L AND a 1 hour delta hs-Troponin T less than 3 ng/L should be considered very low risk for 30 day MACE. Performed By: #### L [id number] #### [facility] CLIA [id number] [address] [place] [address] [place] Lipase SerPl-cCncon 08-21-19 23 Lipase [Catalytic activity/Vol] 40 U/L Normal 16-61 [facility] Comment on above: Order Comment: Marily hernandez Type: BLOOD SPECIMENOrdering Facility: [facility] Address: [address] [address] Performed By: #### 2 4323-8, 3040-3, 70380-0, 75630-5 ####[facility] LABCLIA [id number] [place] [address] [place] NT-proBNP SerPl-mCncon 08-20 Natriuretic peptide.B prohormone N-Terminal [Mass/Vol] <36 Normal <125 [facility] Comment on above: Order Comment: Speci men Type: BLOOD SPECIMENOrdering Facility: [facility] Address: [place] [address] Performed By: #### 2 4323-8, 3040-3, 08192-2, 47808-1 ####[facility] LABCLIA [id number] [place] [address] [place] XR CHEST 1V FRONTALon 2022 XR CHEST 1V FRONTAL * * *Final Report* * * DATE OF EXAM: Aug 20 2022 2:18AM LDX 5290 - XR CHEST 1V FRONTAL / PROCEDURE REASON: Chest pain, nonspecific * * * * Physician Interpretation * * * * EXAMINATION: CHEST RADIOGRAPH (SINGLE VIEW AP OR PA) CLINICAL HISTORY: Chest pain, nonspecific MQ: XC1_5 Comparison: None RESULT: Lines, tubes, and devices: None. Lungs and pleura: No consolidation. No pleural effusion. Cardiomediastinal silhouette: Normal cardiomediastinal silhouette. IMPRESSION: No radiographic evidence of an acute cardiopulmonary process. Resp Ther: RICO Transcribe Date/Time: Aug 20 2022 2:34A Dictated by : VERNON SOLOMON MD This examination was interpreted and the report reviewed and electronically signed by: VERNON SOLOMON MD on Aug 20 2022 2:35AM EST [id number] CN Normal [facility] Absolute lymphocyte counton 04-09-2021 Lymphocytes Auto (Unsp spec) [#/Vol] 2.28 10*3/uL 0.83-4.51 [facility] Work Phone: Basophil percentageon 2021 Basophils/100 WBC (Bld) 0.2 % 0-1 [facility] Work Phone: Eosinophils/100 WBC (Bld) 0.1 % 0-5 [facility] Work Phone: Neutrophils (Bld) [#/Vol] 13.8 10*3/uL 2.0-7.7 [facility] Work Phone: Neutrophils/100 WBC (Bld) 81.1 % 47-70 [facility] Work Phone: WBC (Bld) [#/Vol] 17.0 10*3/uL 4.4-11.0 [facility] Work Phone: Blood erythrocytes count (nu mber/volume)on 04-09-2021 RBC (Bld) [#/Vol] 4.34 10*6/uL 4.2-5.4 [facility] Work Phone: Blood hemoglobin measurement (mass/volume)on 04-09-2021 Hemoglobin (Bld) [Mass/Vol] 12.7 g/dL 12.0-15.0 [facility] Work Phone: Blood lymphocytes/100 leukoc yteson 04-09-2021 Lymphocytes/100 WBC (Bld) 13.4 % 19-41 [facility] Work Phone: Blood monocytes/100 leukocyt eson 04-09-2021 Monocytes/100 WBC (Bld) 4.5 % 0-10 [facility] Work Phone: Blood platelet mean volumeon 04-09-2021 Platelet mean volume (Bld) [Entitic vol] 12.8 fL 6.2-12.0 [facility] Work Phone: Determination of erythrocyte mean corpuscular volume (MCV)on 04-09-2021 MCV (RBC) [Entitic vol] 87.6 fL 81-99 [facility] Work Phone: Hematocrit Auto (Bld) [Volum e fraction]on 04-09-2021 Hematocrit (Bld) [Volume fraction] 38.0 % 37-47 [facility] Work Phone: Laboratory - Hematology and Cell countson 04-09-2021 Erythrocyte distribution width (RBC) [Entitic vol] 42.4 fL 35.1-43.9 [facility] Work Phone: Erythrocyte distribution width (RBC) [Ratio] 13.3 % 11.6-14.6 [facility] Work Phone: Immature granulocytes/100 WBC (Bld) 0.700 % 0.0-0.9 [facility] Work Phone: Comment on above: IG% - Immature Granu locytes (promyelocytes, myelocytes and metamyelocytes) > 1% indicates that a LEFT SHIFT is Present. MCH (RBC) [Entitic mass] 29.3 pg 27.0-32.0 [facility] Work Phone: Nucleated RBC/100 WBC (Bld) [Ratio] 0 % 0-5 [facility] Work Phone: MCHC Auto (RBC) [Mass/Vol]on 04-09-2021 MCHC (RBC) [Mass/Vol] 33.4 g/dL 32-36 [facility] Work Phone: No Panel Informationon 04-09 SARS-CoV-2 Antigen (Rapid) [facility] Work Phone: Platelets bldon 04-09-2021 Platelets (Bld) [#/Vol] 140 10*3/uL 150-450 [facility] Work Phone: Laboratory - Chemistry and C hemistry - challengeon 04-08-2021 Glucose Ql (U) Negative [facility] Work Phone: Laboratory - Urinalysison Protein Ql (U) Negative [facility] Work Phone: Laboratory - Chemistry and C hemistry - challengeon 03-29-2021 Glucose Ql (U) Negative [facility] Work Phone: Laboratory - Urinalysison Protein Ql (U) Negative [facility] Work Phone: Laboratory - Chemistry and C hemistry - challengeon 03-22-2021 Glucose Ql (U) Negative [facility] Work Phone: Laboratory - Urinalysison Protein Ql (U) Negative [facility] Work Phone: No Panel Informationon 03-22 Group B Streptococcus Culture Group B Beta Streptococcus is not isolated. [facility] Work Phone: Laboratory - Chemistry and C hemistry - challengeon 03-14-2021 Glucose Ql (U) Negative [facility] Work Phone: Laboratory - Urinalysison Protein Ql (U) Negative [facility] Work Phone: Absolute lymphocyte counton 02-28-2021 Lymphocytes Auto (Unsp spec) [#/Vol] 1.96 10*3/uL 0.83-4.51 [facility] Work Phone: Basophil percentageon 2021 Basophils/100 WBC (Bld) 0.3 % 0-1 [facility] Work Phone: Eosinophils/100 WBC (Bld) 0.5 % 0-5 [facility] Work Phone: Neutrophils (Bld) [#/Vol] 8.2 10*3/uL 2.0-7.7 [facility] Work Phone: Neutrophils/100 WBC (Bld) 74.3 % 47-70 [facility] Work Phone: WBC (Bld) [#/Vol] 11.1 10*3/uL 4.4-11.0 [facility] Work Phone: Blood erythrocytes count (nu mber/volume)on 02-28-2021 RBC (Bld) [#/Vol] 3.99 10*6/uL 4.2-5.4 [facility] Work Phone: Blood hemoglobin measurement (mass/volume)on 02-28-2021 Hemoglobin (Bld) [Mass/Vol] 11.5 g/dL 12.0-15.0 [facility] Work Phone: Blood lymphocytes/100 leukoc yteson 02-28-2021 Lymphocytes/100 WBC (Bld) 17.7 % 19-41 [facility] Work Phone: Blood monocytes/100 leukocyt eson 02-28-2021 Monocytes/100 WBC (Bld) 6.2 % 0-10 [facility] Work Phone: Blood platelet adequacy dete ction by light microscopyon 02-28-2021 Platelets LM Ql (Bld) ADEQUATE ADEQ [facility] Work Phone: Blood platelet mean volumeon 02-28-2021 Platelet mean volume (Bld) [Entitic vol] 12.3 fL 6.2-12.0 [facility] Work Phone: Blood platelet morphology de termination (nominal result)on 02-28-2021 Platelet morphology finding Nom (Bld) LARGE [facility] Work Phone: Determination of erythrocyte mean corpuscular volume (MCV)on 02-28-2021 MCV (RBC) [Entitic vol] 86.5 fL 81-99 [facility] Work Phone: Hematocrit Auto (Bld) [Volum e fraction]on 02-28-2021 Hematocrit (Bld) [Volume fraction] 34.5 % 37-47 [facility] Work Phone: Laboratory - Hematology and Cell countson 02-28-2021 Anisocytosis Ql (Bld) RARE [facility] Work Phone: Erythrocyte distribution width (RBC) [Entitic vol] 39.6 fL 35.1-43.9 [facility] Work Phone: Erythrocyte distribution width (RBC) [Ratio] 12.7 % 11.6-14.6 [facility] Work Phone: Immature granulocytes/100 WBC (Bld) 1.000 % 0.0-0.9 [facility] Work Phone: Comment on above: IG% - Immature Granu locytes (promyelocytes, myelocytes and metamyelocytes) > 1% indicates that a LEFT SHIFT is Present. MCH (RBC) [Entitic mass] 28.8 pg 27.0-32.0 [facility] Work Phone: Nucleated RBC/100 WBC (Bld) [Ratio] 0 % 0-5 [facility] Work Phone: MCHC Auto (RBC) [Mass/Vol]on 02-28-2021 MCHC (RBC) [Mass/Vol] 33.3 g/dL 32-36 [facility] Work Phone: Platelets bldon 02-28-2021 Platelets (Bld) [#/Vol] 156 10*3/uL 150-450 [facility] Work Phone: RBC morphologyon 02-28-2021 RBC morphology finding Nom (Bld) N CHROM NORMAL NORM C&C [facility] Work Phone: Absolute lymphocyte counton 02-18-2021 Lymphocytes Auto (Unsp spec) [#/Vol] 0.59 10*3/uL 0.83-4.51 [facility] Work Phone: Basophil percentageon 2020 Basophil percentage 10-25 SEEN /hpf [facility] Work Phone: Bilirubin [Mass/Vol] 0.20 mg/dL 0.20-1.00 [facility] Work Phone: Comment on above: For patients on eltr ombopag therapy, use of Dimension [place] TBIL is not recommended. Chloride [Moles/Vol] 105 mmol/L 98-107 [facility] Work Phone: Eosinophils/100 WBC (Bld) 0.1 % 0-5 [facility] Work Phone: Glucose [Mass/Vol] 74 mg/dL 74-106 [facility] Work Phone: [phone] Comment on above: Please note revised GLUCOSE reference range effective 2017. Neutrophils (Bld) [#/Vol] 6.3 10*3/uL 2.0-7.7 [facility] Work Phone: Potassium [Moles/Vol] 3.6 mmol/L 3.5-5.1 [facility] Work Phone: Protein [Mass/Vol] 6.8 g/dL 6.4-8.2 [facility] Work Phone: Sodium [Moles/Vol] 136 mmol/L 136-145 [facility] Work Phone: WBC (Bld) [#/Vol] 7.7 10*3/uL 4.4-11.0 [facility] Work Phone: Bilirubin Test strip Ql (U)o n 02-18-2021 Bilirubin Ql (U) Negative Negative [facility] Work Phone: Blood erythrocytes count (nu mber/volume)on 02-18-2021 RBC (Bld) [#/Vol] 3.61 10*6/uL 4.2-5.4 [facility] Work Phone: Blood hemoglobin measurement (mass/volume)on 02-18-2021 Hemoglobin (Bld) [Mass/Vol] 10.6 g/dL 12.0-15.0 [facility] Work Phone: Blood lymphocytes/100 leukoc yteson 02-18-2021 Lymphocytes/100 WBC (Bld) 7.7 % 19-41 [facility] Work Phone: Blood manual differential co mment interpretation (narrative result)on 02-18-2021 Manual differential comment Ravi (Bld) [Interp] See comment [facility] Work Phone: Comment on above: LYMPHOPENIA NOTED Blood monocytes/100 leukocyt eson 02-18-2021 Monocytes/100 WBC (Bld) 9.6 % 0-10 [facility] Work Phone: Blood platelet adequacy dete ction by light microscopyon 02-18-2021 Platelets LM Ql (Bld) ADEQUATE ADEQ [facility] Work Phone: Blood platelet mean volumeon 02-18-2021 Platelet mean volume (Bld) [Entitic vol] 12.1 fL 6.2-12.0 [facility] Work Phone: Culture, urineon 02-18-2021 Bacteria identified Cx Nom (U) Positive [facility] Work Phone: Determination of erythrocyte mean corpuscular volume (MCV)on 02-18-2021 MCV (RBC) [Entitic vol] 88.1 fL 81-99 [facility] Work Phone: Hematocrit Auto (Bld) [Volum e fraction]on 02-18-2021 Hematocrit (Bld) [Volume fraction] 31.8 % 37-47 [facility] Work Phone: Ketones Test strip Ql (U)on 02-18-2021 Ketones Ql (U) 150 mg/dl Negative [facility] Work Phone: Comment on above: CRITICAL VALUE *HCRI TICAL VALUE VERIFIED. CALLED TO GARLAND GOTTLIEB (OB)02/18/21 1407 Ki Garcia.RESULTS READ BACK BY SAME. Laboratory - Chemistry and C hemistry - challengeon 02-18-2021 ALP [Catalytic activity/Vol] 122 U/L 45-117 [facility] Work Phone: ALT [Catalytic activity/Vol] 20 U/L 13-56 [facility] Work Phone: CO2 [Moles/Vol] 22.0 mmol/L 21.0-32.0 [facility] Work Phone: Globulin (S) [Mass/Vol] 4.4 g/dL 2.2-4.2 [facility] Work Phone: Lipase [Catalytic activity/Vol] 101 U/L 73-393 [facility] Work Phone: Urea nitrogen/Creatinine [Mass ratio] 11.9 mg/mg 10-20 [facility] Work Phone: Laboratory - Hematology and Cell countson 02-18-2021 Basophils/100 WBC (Unsp spec) 0.3 % 0-1 [facility] Work Phone: Erythrocyte distribution width (RBC) [Entitic vol] 39.8 fL 35.1-43.9 [facility] Work Phone: Erythrocyte distribution width (RBC) [Ratio] 12.2 % 11.6-14.6 [facility] Work Phone: Immature granulocytes/100 WBC (Bld) 0.700 % 0.0-0.9 [facility] Work Phone: Comment on above: IG% - Immature Granu locytes (promyelocytes, myelocytes and metamyelocytes) > 1% indicates that a LEFT SHIFT is Present. MCH (RBC) [Entitic mass] 29.4 pg 27.0-32.0 [facility] Work Phone: Neutrophils/100 WBC (Bld) 81.6 % 47-70 [facility] Work Phone: Nucleated RBC/100 WBC (Bld) [Ratio] 0 % 0-5 [facility] Work Phone: Laboratory - Microbiology an d Antimicrobial susceptibilityon 02-18-2021 SARS-CoV-2 (COVID-19) RNA JOVITA+probe Ql (Unsp spec) Detected Not Detect [facility] Work Phone: Comment on above: RESULTS CALLED TO SURINDER SOLANO RN 02/18/21 0432 Jossy Omalley.REPORT READ BACK BY SAME.Normal Reference Range: Not DetectedMethod:(RT-PCR) real-time reverse transcriptase PCRLuminex PAVAN Instrument*The Food and Drug Administration (FDA) has issued an Emergency Use Authorization (EAU) for the PAVAN SARS-CoV-2 Assay for the rapid detection of the virus that causes COVID-19. This test has been validated, but the FDAs independent review of this validation is pending.*Negative results do not preclude infection and should not be used as the sole basis for treatment or patient management. Optimum specimen types and timing for peak viral levels during infections caused by SARS-CoV-2 have not been determined. Collection of multiple specimens from the same patient may be necessary to detect the virus. The possibility of a false negative result should be considered if the patient has clinical presentation or has had recent exposure. MCHC Auto (RBC) [Mass/Vol]on 02-18-2021 MCHC (RBC) [Mass/Vol] 33.3 g/dL 32-36 [facility] Work Phone: Mucus LM Ql (Urine sed)on Mucus Ql (Urine sed) 0 SEEN /hpf [facility] Work Phone: Nitrite Test strip Ql (U)on 02-18-2021 Nitrite Ql (U) Negative Negative [facility] Work Phone: No Panel Informationon 02-18 Estimated Creatinine Clearance Calc 131.30 ml/min [facility] Work Phone: Estimated GFR (MDRD) Amer 185 mL/min >60 [facility] Work Phone: Comment on above: GFR Calc Estimated GFR (MDRD) Non-Af Amer 153 mL/min >60 [facility] Work Phone: Comment on above: Non- GFR Calc SARS-CoV-2 Antigen (Rapid) SARS-CoV-2 (COVID 19) [facility] Work Phone: Platelets bldon 02-18-2021 Platelets (Bld) [#/Vol] 151 10*3/uL 150-450 [facility] Work Phone: Protein Test strip Ql (U)on 02-18-2021 Protein Ql (U) 15 mg/dl Negative [facility] Work Phone: RBC morphologyon 02-18-2021 RBC morphology finding Nom (Bld) NORM C+C NORMAL NORM C&C [facility] Work Phone: Serum or plasma albumin halle urement (mass/volume)on 02-18-2021 Albumin [Mass/Vol] 2.4 g/dL 3.2-5.0 [facility] Work Phone: Serum or plasma albumin/glob ulin mass ratioon 02-18-2021 Albumin/Globulin [Mass ratio] 0.5 {ratio} 0.9-2.4 [facility] Work Phone: Serum or plasma calcium halle urement (mass/volume)on 02-18-2021 Calcium [Mass/Vol] 8.8 mg/dL 8.5-10.1 [facility] Work Phone: Serum or plasma creatinine m easurement (mass/volume)on 02-18-2021 Creatinine [Mass/Vol] 0.50 mg/dL 0.55-1.02 [facility] Work Phone: Comment on above: The validity of the calculated GFR & GFRAA in patients over 70 years has not been determined. Clinical correlation is essential. Serum or plasma urea nitroge n measurement (mass/volume)on 02-18-2021 Urea nitrogen [Mass/Vol] 6 mg/dL 7-18 [facility] Work Phone: Squamous epithelial cells de tection in urine sediment by light microscopyon 02-18-2021 Epithelial cells.squamous LM Ql (Urine sed) 0-5 SEEN /hpf [facility] Work Phone: Thin prep Papanicolaou smear with manual screeningon 02-18-2021 Thin prep Papanicolaou smear with manual screening 21 U/L 15-37 [facility] Work Phone: Thin prep Papanicolaou smear with manual screening 9 5-15 [facility] Work Phone: Urine blood detectionon 01-24 RBC Ql (U) Negative Negative [facility] Work Phone: RBC Ql (U) 0 SEEN /hpf [facility] Work Phone: Urine clarityon 02-18-2021 Clarity (U) Sl. Cloudy Clear [facility] Work Phone: Urine color determinationon 02-18-2021 Color (U) Yellow Yellow [facility] Work Phone: Urine glucose detectionon Glucose Ql (U) 1000 mg/dl Normal [facility] Work Phone: Urine leukocyte esterase det ection by dipstickon 02-18-2021 Leukocyte esterase Test strip Ql (U) 100 /ul Negative [facility] Work Phone: Urine pHon 02-18-2021 pH (U) 6.5 [pH] [facility] Work Phone: Urine sediment bacteria coun t by microscopy (number/high power field)on 02-18-2021 Bacteria LM.HPF (Urine sed) [#/Area] 2 /[HPF] None Seen [facility] Work Phone: Urine specific gravity measu rementon 02-18-2021 Specific gravity (U) [Rel density] 1.010 [facility] Work Phone: Urobilinogen Auto test strip Ql (U)on 02-18-2021 Urobilinogen Ql (U) Normal mg/dl Normal [facility] Work Phone: Laboratory - Chemistry and C hemistry - challengeon 02-01-2021 Glucose Ql (U) Negative [facility] Work Phone: Laboratory - Urinalysison Protein Ql (U) Negative [facility] Work Phone: Vital Signs Date Time Vital Sign Value Performing Clinician Truei marciy 10-26-2024 15:57-0400 Body height 157.[address] Miguel Vigil MD Work Phone: [facility] 10-26-2024 15:56-0400 Body mass index (BMI) [Ratio] 30.2 kg/m2 Dr. Miguel Vigil MD Work Phone: [facility] 10-26-2024 15:56-0400 Body weight 74.[address] Miguel Vigil MD Work Phone: [facility] 10-26-2024 15:56-0400 Diastolic blood pressure 76 mm[Hg] Dr. Miguel Vigil MD Work Phone: [facility] 10-26-2024 15:56-0400 Systolic blood pressure 123 mm[Hg] Dr. Miguel Vigil MD Work Phone: [facility] 09-30-2024 08:50-0400 Body height 157.[address] Miguel Vigil MD Work Phone: [facility] 09-30-2024 08:50-0400 Body mass index (BMI) [Ratio] 29.7 kg/m2 Dr. Miguel Vigil MD Work Phone: [facility] 09-30-2024 08:50-0400 Body weight 73.[address] Miguel Vigil MD Work Phone: 3(323)549-557328 [place] [address] 09-30-2024 08:50-0400 Diastolic blood pressure 82 mm[Hg] Dr. Miguel Vigil MD Work Phone: 8(709)430-682694 [address] 09-30-2024 08:50-0400 Systolic blood pressure 124 mm[Hg] Dr. Miguel Vigil MD Work Phone: 6(126)718-479628 [place] [address] 09-06-2024 10:56-0400 Body height 157.[address] Miguel Vigil MD Work Phone: 4(237)566-043694 [address] 09-06-2024 10:56-0400 Body mass index (BMI) [Ratio] 29.1 kg/m2 Dr. Miguel Vigil MD Work Phone: 3(179)033-391428 [place] [address] 09-06-2024 10:56-0400 Body weight 72.[address] Miguel Vigil MD Work Phone: 7(186)956-561828 [place] [address] 09-06-2024 10:56-0400 Diastolic blood pressure 77 mm[Hg] Dr. Miguel Vigil MD Work Phone: 1(657)275-923894 [address] 09-06-2024 10:56-0400 Systolic blood pressure 117 mm[Hg] Dr. Miguel Vigil MD Work Phone: 2(976)545-114128 [place] [address] 08-03-2024 08:31-0400 Body height 157.[address] Miguel Vigil MD Work Phone: 8(423)837-391228 [place] [address] 08-03-2024 08:31-0400 Body mass index (BMI) [Ratio] 28.7 kg/m2 Dr. Miguel Vigil MD Work Phone: [facility] 08-03-2024 08:31-0400 Body weight 71.[address] Miguel Vigil MD Work Phone: [facility] 08-03-2024 08:31-0400 Diastolic blood pressure 84 mm[Hg] Dr. Miguel Vigil MD Work Phone: [facility] 08-03-2024 08:31-0400 Systolic blood pressure 126 mm[Hg] Dr. Miguel Vigil MD Work Phone: [facility] 07-07-2024 14:50-0400 Body height 157.[address] Miguel Vigil MD Work Phone: [facility] 07-07-2024 14:40-0400 Body mass index (BMI) [Ratio] 28.7 kg/m2 Dr. Miguel Vigil MD Work Phone: [facility] 07-07-2024 14:40-0400 Body weight 71.[address] Miguel Vigil MD Work Phone: [facility] 07-07-2024 14:40-0400 Diastolic blood pressure 88 mm[Hg] Dr. Miguel Vigil MD Work Phone: [facility] 07-07-2024 14:40-0400 Systolic blood pressure 139 mm[Hg] Dr. Miguel Vigil MD Work Phone: [facility] 06-29-2024 23:24-0400 Body temperature 97.9 [degF] Dr. Miguel Vigil MD Work Phone: [facility] 06-29-2024 23:24-0400 Diastolic blood pressure 92 mm[Hg] Dr. Miguel Vigil MD Work Phone: [facility] 06-29-2024 23:24-0400 Heart rate 86 /min Dr. Miguel Vigil MD Work Phone: [facility] 06-29-2024 23:24-0400 Respiratory rate 16 /min Dr. Miguel Vigil MD Work Phone: [facility] 06-29-2024 23:24-0400 SaO2% (BldA) [Mass fraction] 100 % Dr. Miguel Vigil MD Work Phone: [facility] 06-29-2024 23:24-0400 Systolic blood pressure 125 mm[Hg] Dr. Miguel Vigil MD Work Phone: [facility] 06-29-2024 21:24-0400 Body height 157.[address] Miguel Vigil MD Work Phone: [facility] 06-29-2024 21:24-0400 Body mass index (BMI) [Ratio] 29.1 kg/m2 Dr. Miguel Vigil MD Work Phone: [facility] 06-29-2024 21:24-0400 Body weight 72.[address] Miguel Vigil MD Work Phone: [facility] 06-22-2024 14:56-0400 Body mass index (BMI) [Ratio] 29.2 kg/m2 Dr. Miguel Vigil MD Work Phone: [facility] 06-22-2024 14:56-0400 Body weight 72.[address] Miguel Vigil MD Work Phone: [facility] 06-22-2024 14:56-0400 Diastolic blood pressure 80 mm[Hg] Dr. Miguel Vigil MD Work Phone: [facility] 06-22-2024 14:56-0400 Systolic blood pressure 123 mm[Hg] Dr. Miguel Vigil MD Work Phone: [facility] 06-07-2024 18:52-0400 Body temperature 98 [degF] Dr. Miguel Vigil MD Work Phone: [facility] 06-07-2024 18:52-0400 Diastolic blood pressure 79 mm[Hg] Dr. Miguel Vigil MD Work Phone: [facility] 06-07-2024 18:52-0400 Heart rate 85 /min Dr. Miguel Vigil MD Work Phone: [facility] 06-07-2024 18:52-0400 Respiratory rate 22 /min Dr. Miguel Vigil MD Work Phone: [facility] 06-07-2024 18:52-0400 SaO2% (BldA) [Mass fraction] 100 % Dr. Miguel Vigil MD Work Phone: [facility] 06-07-2024 18:52-0400 Systolic blood pressure 125 mm[Hg] Dr. Miguel Vigil MD Work Phone: [facility] 06-07-2024 13:19-0400 Body height 157.[address] Miguel Vigil MD Work Phone: [facility] 06-07-2024 13:19-0400 Body mass index (BMI) [Ratio] 29.8 kg/m2 Dr. Miguel Vigil MD Work Phone: [facility] 06-07-2024 13:19-0400 Body weight 73.[address] Miguel Vigil MD Work Phone: [facility] 04-24-2023 13:35-0500 Body temperature 98.3 [degF] Dr. Kelle Oconnell Work Phone: [facility] 04-24-2023 13:35-0500 Diastolic blood pressure 55 mm[Hg] Dr. Kelle Oconnell Work Phone: [facility] 04-24-2023 13:35-0500 Heart rate 85 /min Dr. Kelle Oconnell Work Phone: [facility] 04-24-2023 13:35-0500 Respiratory rate 16 /min Dr. Kelle Oconnell Work Phone: [facility] 04-24-2023 13:35-0500 SaO2% (BldA) [Mass fraction] 100 % Dr. Kelle Oconnell Work Phone: [facility] 04-24-2023 13:35-0500 Systolic blood pressure 103 mm[Hg] Dr. Kelle Oconnell Work Phone: [facility] 04-24-2023 12:18-0500 Body height 157.[address] Kelle Oconnell Work Phone: [facility] 04-24-2023 12:18-0500 Body mass index (BMI) [Ratio] 28.3 kg/m2 Dr. Kelle Oconnell Work Phone: [facility] 04-24-2023 12:18-0500 Body weight 70.[address] Kelle Oconnell Work Phone: [facility] 04-24-2023 11:05-0500 Body mass index (BMI) [Ratio] 28.5 kg/m2 Dr. Kelle Oconnell Work Phone: [facility] 04-24-2023 11:05-0500 Body weight 70.[address] Kelle Oconnell Work Phone: [facility] 04-24-2023 11:05-0500 Diastolic blood pressure 86 mm[Hg] Dr. Kelle Oconnell Work Phone: [facility] 04-24-2023 11:05-0500 Systolic blood pressure 138 mm[Hg] Dr. Kelle Oconnell Work Phone: [facility] 03-27-2023 15:09-0500 Body height 157.[address] Kelle Oconnell Work Phone: [facility] 03-27-2023 15:09-0500 Body mass index (BMI) [Ratio] 29.9 kg/m2 Dr. Kelle Oconnell Work Phone: [facility] 03-27-2023 15:09-0500 Body weight 74.[address] Kelle Oconnell Work Phone: [facility] 03-27-2023 15:09-0500 Diastolic blood pressure 80 mm[Hg] Dr. Kelle Oconnell Work Phone: [facility] 03-27-2023 15:09-0500 Systolic blood pressure 115 mm[Hg] Dr. Kelle Oconnell Work Phone: [facility] 03-10-2023 14:42-0500 Body height 157.[address] Kelle Oconnell Work Phone: [facility] 03-10-2023 14:40-0500 Body mass index (BMI) [Ratio] 30.7 kg/m2 Dr. Kelle Oconnell Work Phone: [facility] 03-10-2023 14:40-0500 Body weight 76.[address] Kelle Oconnell Work Phone: [facility] 03-10-2023 14:40-0500 Diastolic blood pressure 76 mm[Hg] Dr. Kelle Oconnell Work Phone: [facility] 03-10-2023 14:40-0500 Systolic blood pressure 122 mm[Hg] Dr. Kelle Oconnell Work Phone: [facility] 12-18-2022 14:00-0400 Body height 157.[address] Kelle Oconnell Work Phone: [facility] 12-18-2022 13:59-0400 Body mass index (BMI) [Ratio] 30.4 kg/m2 Dr. Kelle Oconnell Work Phone: [facility] 12-18-2022 13:59-0400 Body weight 75.[address] Kelle Oconnell Work Phone: [facility] 12-18-2022 13:59-0400 Diastolic blood pressure 74 mm[Hg] Dr. Kelle Oconnell Work Phone: [facility] 12-18-2022 13:59-0400 Systolic blood pressure 112 mm[Hg] Dr. Kelle Oconnell Work Phone: [facility] 05-24-2021 14:05-0400 Body height 157.[address] Kelle Oconnell Work Phone: [facility] Work Phone: 05-24-2021 14:05-0400 Body mass index (BMI) [Ratio] 27.1 kg/m2 Dr. Kelle Oconnell Work Phone: [facility] Work Phone: 05-24-2021 14:05-0400 Body weight 67.[address] Kelle Oconnell Work Phone: [facility] Work Phone: 05-24-2021 14:05-0400 Diastolic blood pressure 74 mm[Hg] Dr. Kelle Oconnell Work Phone: [facility] Work Phone: 05-24-2021 14:05-0400 Systolic blood pressure 112 mm[Hg] Dr. Kelle Oconnell Work Phone: [facility] Work Phone: 04-11-2021 11:46-0500 Body temperature 98.1 [degF] Dr. Kelle Oconnell Work Phone: [facility] Work Phone: 04-11-2021 11:46-0500 Diastolic blood pressure 76 mm[Hg] Dr. Kelle Oconnell Work Phone: [facility] Work Phone: 04-11-2021 11:46-0500 Heart rate 86 /min Dr. Kelle Oconnell Work Phone: [facility] Work Phone: 04-11-2021 11:46-0500 Respiratory rate 16 /min Dr. Kelle Oconnell Work Phone: [facility] Work Phone: 04-11-2021 11:46-0500 SaO2% (BldA) [Mass fraction] 99 % Dr. Kelle Oconnell Work Phone: [facility] Work Phone: 04-11-2021 11:46-0500 Systolic blood pressure 125 mm[Hg] Dr. Kelle Oconnell Work Phone: [facility] Work Phone: 04-09-2021 13:44-0500 Body mass index (BMI) [Ratio] 29.5 kg/m2 Dr. Kelle Oconnell Work Phone: [facility] Work Phone: 04-09-2021 13:44-0500 Body weight 73.[address] Kelle Oconnell Work Phone: [facility] Work Phone: 04-08-2021 14:32-0500 Body mass index (BMI) [Ratio] 29.8 kg/m2 Dr. Kelle Oconnell Work Phone: [facility] Work Phone: 04-08-2021 14:32-0500 Body weight 73.[address] Kelle Oconnell Work Phone: [facility] Work Phone: 04-08-2021 14:32-0500 Diastolic blood pressure 86 mm[Hg] Dr. Kelle Oconnell Work Phone: [facility] Work Phone: 04-08-2021 14:32-0500 Systolic blood pressure 124 mm[Hg] Dr. Kelle Oconnell Work Phone: [facility] Work Phone: 04-02-2021 14:19-0500 Body mass index (BMI) [Ratio] 29.8 kg/m2 Dr. Kelle Oconnell Work Phone: [facility] Work Phone: 04-02-2021 14:19-0500 Body weight 73.[address] Kelle Oconnell Work Phone: [facility] Work Phone: 04-02-2021 14:19-0500 Diastolic blood pressure 82 mm[Hg] Dr. Kelle Oconnell Work Phone: [facility] Work Phone: 04-02-2021 14:19-0500 Systolic blood pressure 132 mm[Hg] Dr. Kelle Oconnell Work Phone: [facility] Work Phone: 03-29-2021 09:11-0500 Body mass index (BMI) [Ratio] 29.6 kg/m2 Dr. Kelle Oconnell Work Phone: [facility] Work Phone: 03-29-2021 09:11-0500 Body weight 73.[address] Kelle Oconnell Work Phone: [facility] Work Phone: 03-29-2021 09:11-0500 Diastolic blood pressure 80 mm[Hg] Dr. Kelle Oconnell Work Phone: [facility] Work Phone: 03-29-2021 09:11-0500 Systolic blood pressure 128 mm[Hg] Dr. Kelle Oconnell Work Phone: [facility] Work Phone: 03-22-2021 14:51-0500 Body mass index (BMI) [Ratio] 29.2 kg/m2 Dr. Kelle Oconnell Work Phone: [facility] Work Phone: 03-22-2021 14:51-0500 Body weight 72.[address] Kelle Oconnell Work Phone: [facility] Work Phone: 03-22-2021 14:51-0500 Diastolic blood pressure 88 mm[Hg] Dr. Kelle Oconnell Work Phone: [facility] Work Phone: 03-22-2021 14:51-0500 Systolic blood pressure 126 mm[Hg] Dr. Kelle Oconnell Work Phone: [facility] Work Phone: 03-14-2021 10:30-0500 Body mass index (BMI) [Ratio] 29.1 kg/m2 Dr. Kelle Oconnell Work Phone: [facility] Work Phone: 03-14-2021 10:30-0500 Body weight 72.[address] Kelle Oconnell Work Phone: [facility] Work Phone: 03-14-2021 10:30-0500 Diastolic blood pressure 82 mm[Hg] Dr. Kelle Oconnell Work Phone: [facility] Work Phone: 03-14-2021 10:30-0500 Systolic blood pressure 130 mm[Hg] Dr. Kelle Oconnell Work Phone: [facility] Work Phone: 02-28-2021 13:02-0500 Body weight 68.[address] Kelle Oconnell Work Phone: [facility] Work Phone: 02-28-2021 13:02-0500 Diastolic blood pressure 70 mm[Hg] Dr. Kelle Oconnell Work Phone: [facility] Work Phone: 02-28-2021 13:02-0500 Systolic blood pressure 110 mm[Hg] Dr. Kelle Oconnell Work Phone: [facility] Work Phone: 02-18-2021 10:09-0500 Body temperature 99 [degF] Dr. Kelle Oconnell Work Phone: [facility] Work Phone: 02-18-2021 10:09-0500 Diastolic blood pressure 69 mm[Hg] Dr. Kelle Oconnell Work Phone: [facility] Work Phone: 02-18-2021 10:09-0500 Heart rate 88 /min Dr. Kelle Oconnell Work Phone: [facility] Work Phone: 02-18-2021 10:09-0500 SaO2% (BldA) [Mass fraction] 98 % Dr. Kelle Oconnell Work Phone: [facility] Work Phone: 02-18-2021 10:09-0500 Systolic blood pressure 104 mm[Hg] Dr. Kelle Oconnell Work Phone: [facility] Work Phone: 02-18-2021 10:06-0500 Body mass index (BMI) [Ratio] 27.4 kg/m2 Dr. Kelle Oconnell Work Phone: [facility] Work Phone: 02-18-2021 10:06-0500 Body weight 68.[address] Kelle Oconnell Work Phone: [facility] Work Phone: 02-01-2021 15:25-0500 Body mass index (BMI) [Ratio] 28.3 kg/m2 Dr. Kelle Oconnell Work Phone: [facility] Work Phone: 02-01-2021 15:25-0500 Body weight 70.[address] Kelle Oconnell Work Phone: [facility] Work Phone: 02-01-2021 15:25-0500 Diastolic blood pressure 78 mm[Hg] Dr. Kelle Oconnell Work Phone: [facility] Work Phone: 02-01-2021 15:25-0500 Systolic blood pressure 130 mm[Hg] Dr. Kelle Oconnell Work Phone: [facility] Work Phone: Encounters Encounter Date Encounter Type Care Provider Facility Start: 11-16-2024 ambulatory Valorie Dupontty:[facility] Start: 10-26-2024 End: 10-26-[address] Valorie Ramos DO -[facility] Work Phone: Start: 10-26-2024 End: 10-26-[address] Miguel Vigil MD Work Phone: -[facility] Start: 09-30-2024 End: 09-30-2024 Patient encounter procedure Indiana Lazo CNM -[facility] Work Phone: Start: 09-30-2024 End: 09-30-[address] Miguel Vigil MD Work Phone: -[facility] Start: 09-06-2024 End: 09-06-[address] Valorie Ramos DO -[facility] Work Phone: Start: 09-06-2024 End: 09-06-[address] Miguel Vigil MD Work Phone: -[facility] Start: 08-30-2024 End: 08-30-2024 ambulatory [facility] Start: 08-22-2024 End: 08-22-2024 Emergency department patient visit KELLE OCONNELL [facility] Start: 08-03-2024 End: 08-03-2024 Patient encounter procedure John FINCH -[facility] Work Phone: Start: 08-03-2024 End: 08-03-[address] Miguel Vigil MD Work Phone: [facility] Work Phone: Start: 07-07-2024 End: 07-07-[address] Cassandra Lockhart MD -[facility] Work Phone: Start: 07-07-2024 End: 07-07-[address] Miguel Vigil MD Work Phone: [facility] Work Phone: Start: 07-07-2024 End: 07-07-2024 ambulatory [facility] Facility:[facility] Start: 07-01-2024 Non-patient / Non-visit Isa Rios RN -[facility] Work Phone: Start: 07-01-2024 [facility] Start: 06-29-2024 End: 06-29-2024 Emergency department patient visit Dr. Miguel Vigil MD Work Phone: -Emergency Department Work Phone: Start: 06-22-2024 End: 06-22-[address] Cassandra Lockhart MD -[facility] Work Phone: Start: 06-22-2024 End: 06-22-2024 ambulatory Cassandra Lockhart Facility:[facility] Start: 06-07-2024 End: 06-07-2024 Emergency department patient visit Dr. Miguel Vigil MD Work Phone: -Emergency Department Work Phone: Start: 04-26-2024 End: 04-26-[address] Miguel Vigil MD Work Phone: [facility] Work Phone: Start: 04-26-2024 End: 04-26-2024 Patient encounter procedure John Ariza NP-C -Lab, [facility] Start: 04-26-2024 End: 04-26-2024 ambulatory [facility] Facility:[facility] Start: 04-24-2023 End: 04-24-[address] Kelle Oconnell Work Phone: [facility] Work Phone: Start: 04-24-2023 End: 04-24-[address] Kelle Oconnell Work Phone: [facility] Work Phone: Start: 04-24-2023 End: 04-24-[address] Kelle Oconnell Work Phone: [facility] Work Phone: Start: 03-27-2023 End: 03-27-[address] eKlle Oconnell Work Phone: [facility] Work Phone: Start: 03-27-2023 End: 03-27-[address] Kelle Oconnell Work Phone: [facility] Work Phone: Start: 03-10-2023 End: 03-10-[address] Kelle Oconnell Work Phone: [facility] Work Phone: Start: 03-10-2023 End: 03-10-[address] Kelle Oconnell Work Phone: [facility] Work Phone: Start: 03-10-2023 End: 03-10-[address] Kelle Oconnell Work Phone: [facility] Work Phone: Start: 02-13-2023 End: 02-13-[address] Kelle Oconnell Work Phone: [facility] Work Phone: Start: 02-13-2023 End: 02-13-[address] Kelle Oconnell Work Phone: [facility] Work Phone: Start: 02-11-2023 End: 02-11-[address] Kelle Oconnell Work Phone: [facility] Work Phone: Start: 02-11-2023 End: 02-11-[address] Kelle Oconnell Work Phone: [facility] Start: 12-18-2022 End: 12-18-[address] Kelle Oconnell Work Phone: [facility] Work Phone: Start: 08-20-2022 End: 08-20-2022 Emergency department patient visit LEATHA CALVIN Facility:[facility] Start: 05-24-2021 End: 05-24-[address] [facility] Start: 05-24-2021 End: 05-24-[address] Kelle Oconnell Work Phone: [facility] Start: 05-16-2021 End: 05-16-[address] Kelle Oconnell Work Phone: [facility] Start: 04-11-2021 Non-patient / Non-visit Dr. Kelle Oconnell Work Phone: [facility] Start: 04-10-2021 Non-patient / Non-visit Dr. Kelle Oconnell Work Phone: [facility] Start: 04-09-2021 Non-patient / Non-visit Dr. Kelle Oconnell Work Phone: [facility] Start: 04-09-2021 End: 04-11-2021 Evaluation and management of inpatient [facility] Start: 04-08-2021 End: 04-08-[address] Kelle Oconnell Work Phone: [facility] Start: 04-02-2021 End: 04-02-[address] Kelle Oconnell Work Phone: [facility] Start: 03-29-2021 End: 03-29-[address] Kelle Oconnell Work Phone: [facility] Start: 03-22-2021 End: 03-22-[address] [facility]nell [facility] Start: 03-22-2021 End: 03-22-[address] Kelle Oconnell Work Phone: [facility] Start: 03-14-2021 End: 03-14-[address] Kelle Oconnell Work Phone: [facility] Start: 03-14-2021 End: 03-14-[address] Kelle Oconnell Work Phone: [facility] Start: 02-28-2021 End: 02-28-[address] [facility]connell [facility] Start: 02-18-2021 Non-patient / Non-visit Dr. Kelle Oconnell Work Phone: [facility] Start: 02-18-2021 End: 02-18-[address] Kelle Oconnell Work Phone: [facility] Start: 02-01-2021 End: 02-01-[address] Kelle Oconnell Work Phone: [facility] Procedures Date Procedure Procedure Detail Performing Clinician Start: 07-07-2024 Liquid based cervica l cytology screening Dr. Miguel Vigil MD Work Phone: Comment on above: NEGATIVE FOR INTRAEP ITHELIAL LESION OR MALIGNANCY. This liquid based Th inPrep(R) pap test was screened withthe use of an image guided system. Start: 07-07-2024 Hepatitis C antibody measurement Dr. Miguel Vigil MD Work Phone: Comment on above: Reactive: Presumptiv e evidence of antibodies to HCV. Follow CDC recommendations for supplemental testing.Non-Reactive: Antibodies to HCV were not detected; does not exclude the possibility of exposure to HCVReactive Results are presumptive evidence of antibodies to HCV. Follow CDC recommendations for supplemental testing.Order confirmation testing: HCV Quant by PCR testing - HCVPCR #[id number] Non Reactive: < 0.8 Equivocal: >/= 0.8 to < 1.0 Reactive: >/= 1.0The CDC requires that a reactive/equivocal HCV antibody result be sent out for confirmation. HCV Quant by PCR testing. Start: 07-07-[address] Miguel Vigil MD Work Phone: Start: 07-07-[address] Miguel Vigil MD Work Phone: Comment on above: Antibody Result: Int erpretationNon-Reactive: Non- ImmuneReactive: ImmuneThe following results were obtained with the [employer] Rubella IgG assay. Results from assays of other manufacturers cannot be used interchangeably. Start: 07-07-2024 Serologic test for syphilis Dr. Miguel Vigil MD Work Phone: Start: 07-07-[address] Brown Vigil MD Work Phone: Start: 06-07-2024 Urnls dip stick/tabl et reagent auto microscopy Dr. Miguel Vigil MD Work Phone: Start: 06-07-2024 Transvaginal obstetr ic ultrasonography Dr. Miguel Vigil MD Work Phone: Start: 06-07-[address] Miguel Vigil MD Work Phone: Start: 03-10-[address] Kelle Oconnell Work Phone: Start: 04-09-2021 SARS-CoV-2 Antigen (Rapid) Dr. Kelle Oconnell Work Phone: Start: 03-29-2021 Ultrasonography for biophysical profile without non-stress testing Dr. Kelle Oconnell Work Phone: Start: 03-22-2021 Group B Streptococcu s Culture Dr. Kelle Oconnell Work Phone: Start: 03-14-2021 Ultrasound scan for growth Dr. Kelle Oconnell Work Phone: Start: 02-18-2021 SARS-CoV-2 Antigen (Rapid) Dr. Kelle Oconnell Work Phone: Start: 02-18-[address] Kelle Ocnonell Work Phone: H/O: section History of C-sectio n Dr. Miguel Vigil MD Work Phone: Comment on above: x1 H/O: section History of delivery, currently Dr. Miguel Viigl MD Work Phone: Comment on above: x1; Desires if smaller , if same size plan RLTCS H/O: section History of delivery, currently Dr. Cassandra Lockhart MD H/O: section History of delivery, currently John Ariza YOKE [employer]ER-C H/O: section History of delivery, currently Dr. Valorie Ramos DO H/O: section History of delivery, currently Indiana Lazo CNM H/O: section History of delivery, currently Dr. Valorie Ramos DO Plan of Treatment Date Care Activity Detail Author Start: 07-07-2024 CBC W Auto Differential panel - Blood [facility] Start: 07-07-2024 Hemoglobin A1c/Hemoglobin.total in Blood [facility] Start: 07-07-2024 Hepatitis C antibody measurement [facility] Start: 07-07-2024 Procedure [facility] Start: 07-07-2024 Rubella IgG measurement [facility] Start: 07-07-2024 Serologic test for syphilis [facility] Start: 07-07-2024 [facility] Start: 06-29-2024 [facility] Start: 06-07-2024 [facility] Start: 02-18-2021 Iv infusion hydration each additional hour HYDRATE IV INFUSION ADD-ON [facility] Work Phone: Start: 02-18-2021 Ther proph/dx njx iv push single/1st sbst/drug THER/PROPH/DIAG INJ IV PUSH [facility] Work Phone: Start: 02-18-2021 Therapeutic injection iv push each new drug TX/PRO/DX [facility] Work Phone: CBC W Auto Different ial panel - Blood [facility] CBC W Auto Different ial panel - Blood [facility] Chlamydia deoxyribon ucleic acid detection [facility] Erythrocyte mean cor puscular volume determination [facility] Hematocrit [Volume F raction] of Blood [facility] Hemoglobin [Mass/vol ume] in Blood [facility] Hepatitis B surface antigen measurement [facility] Hepatitis B virus krueger rface Ag [Presence] in Serum [facility] Hepatitis C antibody measurement [facility] HIV 1+2 Ab+HIV1 p24 Ag [Presence] in Serum or Plasma by Immunoassay [facility] Leukocytes [#/volume ] in Blood [facility] Liquid based cervica l cytology screening [facility] Mean corpuscular hem oglobin concentration determination [facility] Mean corpuscular hem oglobin determination [facility] Measurement of gluco se 2 hours after glucose challenge for glucose tolerance test [facility] Neutrophil count [facility] Neutrophil percent differential count [facility] Patient Education [facility] Work Phone: Patient referral [facility] Work Phone: Platelets [#/volume] in Blood [facility] Red blood cell count [facility] Red cell distributio n width determination [facility] Rubella IgG measurement [facility] Serologic test for syphilis [facility] Treponema sp Ab [Pre sence] in Serum [facility] [place] Date Payer Category Payer Self-pay [id number] 2020 Unknown [id number] 1990 Unknown [id number] 2.16. [id number] Unknown [id number] 2.16.8 [id number] Unknown [id number] 2.16.8 [id number] Unknown [id number] 2.16.8 [id number] Unknown [id number] 2.16.8 [id number] Unknown [id number] 2.16.8 [id number] Unknown [id number] 2.16.8 [id number] Unknown [id number] 2.16.8 [id number] Unknown [id number] 2.16.8 [id number] Unknown [id number] 2.16.8 [id number] Unknown [id number] 2.16.8 [id number] Unknown [id number] 2.16.8 [id number] Unknown [id number] 2.16.8 [id number] Social History Date Type Detail Facility Start: 05-24-2021 End: 04-24-2023 Tobacco smoking status NHIS Unknown if ever smoked [facility] Start: 1990 Sex Assigned At Female [facility] Start: 10-09-2023 End: 08-03-2024 Tobacco smoking status NHIS Never smoked tobacco (finding) [facility] Start: 05-10-2024 End: 06-07-2024 Sex Female (finding) [facility] Patient currentl y [facility] Mental Status Date Assessment Result Facility 04-24-2023 Cognitive function Voice/Name [facility] Work Phone: Clinical Notes 06-07-2024 to 10-26-2024 Note Date & Type Note Facility 10-26-2024 Progress note [facility] 10-26-2024 Progress note Note Date/Time October 26, 2024 4:17pm [facility] [address], [address] [place] [address] OFFICE VISIT Date of Service: 10/26/24 MR#: [id number] Acct: [id number] Name: LEONOR CAMACHO Rep #: [id number] : 1990 Provider: Dr. Kinga Ramos DO Age/Sex: 33/F [place] [facility] [place]: Signed Intake Vital Signs 08/03/24 08:31 08/03/24 08:57 09/30/24 08:50 10/26/24 15:56 10/26/24 15:57 Height 5 ft 2 in 5 ft 2 in 5 ft 2 in 5 ft 2 in 5 ft 2 in Weight: 165 lb BMI 30.2 BP 123/76 H Intake Visit Reasons: 27wk ob/glucose Right Of Way Agent Required: No Is patient in pain?: No Allergies No Known Allergies Allergy (Verified 10/26/24 15:56) Medications ?Medication ?Instructions ?Recorded ?Confirmed ?Type NK 07/07/24 10/26/24 History Last Menstrual Period: 01/11/23 Zika: Zika virus screening: Negative : No PFSH PFSH Medical History History of shoulder dystocia PMDD (premenstrual dysphoric disorder) Anemia PCOS (polycystic ovarian syndrome) Surgical History History of H/O oral surgery Family History Father Diabetes Type 1 Mother Hypertension Grandfather Cancer bladder Social History adopted: No household members: spouse and children number of children: 2 current occupational status: employed 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 current occupational exposures/hazards: No pets and animals: Yes pets and animals: dog(s) history of recent travel: No sexually active: Yes Smoking Status: Never smoker second hand exposure: No alcohol intake: current alcohol intake frequency: holidays/special occasions only details: Not while substance use type: does not use well-balanced diet: daily or most days caffeine: No eating out: rarely or never during the past year weight has: remained stable what type of physical activity do you participate in: walking and yoga frequency: 3-4 times per week duration: 15-30 minutes/day kofi/sikh: Jew seatbelt use: always do you feel safe at home: Yes additional social history: : Boogie LEIGH History 3 Elective abortions Hx Para 2 Spontaneous abortions 0 Hx # Term Pregnancies 2 Ectopic pregnancies Hx # Pregnancies Multiple births # of living children 2 Past Pregnancies Del. Date Name GA/Weeks Outcome Route Bth Weight Infant Gen Labor Lgth A nesthesia Del Locatn Provider FOB 04/09/21 Alfred 39 live - full term 7lbs 9 ounces Female epidural [facility] Chantelle Hyman 10/02/23 Devang 39 live - full term 7lbs 10oz Female spinal [facility] Dr. Chantelle Hyman Delivery Date: 04/09/21 Last Updated by: Giselle Hoffmann IOL shoulder dystocia Delivery Date: 10/02/23 Last Updated by: Valencia Hawkins Primary section due to history of shoulder dystocia. Anemia, GBS + HPI 27wk ob/glucose Details: LEONOR CAMACHO is a 33 year old who presents for routine OB visit. OB Visit JERZY Calculator Estimated Delivery Date Method Current WG Current Estimate 01/26/25 Ultrasound #1 26w 6d Expected Delivery Route/Plan RLTCS with SM success rate is 78% Specific Issue/Plans Covid status: [] Flu vaccine: [] Tdap vaccine: [] Rhogam: [] LARC form signed: [] Problem list reviewed and updated with the most current plan of care details and appropriate orders placed. Relevant counseling for the gestational age provided. Continue routine care and follow up unless otherwise noted in visit notes/problem list details Initial Weight: Not Recorded Date -?-?-?-?-?-?-?-?-?-?-?-?- EGA Weight BP Urine Prot -?-?-?-?-?-?-?-?-?-?-?-?- Glucose FHR FuHt Pres Dilation -?-?-?-?-?-?-?-?-?-?-?-?- Effaced St Visit Note 07/07/24 -?-?-?-?-?-?-?-?-?-?-?-?- 11w 0d 157 lb 2 oz 139/88 -?-?-?-?-?-?-?-?-?-?-?-?- 180 -?-?-?-?-?-?-?-?-?-?-?-?- SM- CRL 3.9cm co ns with LMP 08/03/24 -?-?-?-?-?-?-?-?-?-?-?-?- 14w 6d 157 lb 126/84 Negative -?-?-?-?-?-?-?-?-?-?-?-?- Negative 163 -?-?-?-?-?-?-?-?-?-?-?-?- MH-No VB. Nausea improved. Br US confirm FHT 09/06/24 -?-?-?-?-?-?-?-?-?-?-?-?- 19w 5d 159 lb 6 oz 117/77 Nega tive -?-?-?-?--?-?-?-?-?-?-?-?- Negative 160 -?-?-?-?-?-?-?-?-?-?-?-?- GEN- ramirez discuss ion about success rate of 78%. we discussed that this does not predict baby's health after delivery it it ends up in a shoulder dystocia again however and it only predicts the probability of getting the baby out vaginally 09/30/24 -?-?-?-?-?-?-?-?-?-?-?-?- 23w 1d 162 lb 4 oz 124/82 Nega tive -?-?-?-?-?-?-?-?-?-?-?-?- Negative 145 24 -?-?-?-?-?-?-?-?-?-?-?-?- KW- no vb/lof/ct x. good fm. many questions about doing a 10/26/24 -?-?-?-?-?-?-?-?-?-?-?-?- 26w 6d 165 lb 123/76 Negative -?-?-?-?-?-?-?-?-?-?-?-?- Negative 147 28 -?-?-?-?-?-?-?-?-?-?--?-?- JV- no lof, vagi nal bleeding, or dec fm. glucola next visit. ACOG First Trimester First Trimester: Desire for , Alcohol, Tobacco Cessation, Illicit/Recreational Drug/Substance Use, Intimate Partner Violence, Barriers to care, Unstable Housing, Communication Barriers, Environmental/Work Hazards, Anticipated Course of Care, Toxoplasmosis Precations, Use of Any medications, Sexual activity, Exercise, Dental Care, Sauna/Hot tub use, Seat Belt use, Childbirth classes/Hospital facilities, Travel, Indications for Ultrasound and Screening for Aneuploidy; Discussed Second Trimester Second Trimester: Signs and Symptoms of Labor, Selecting a care provider, Reproductive Life Planning & Contreception, Care Planning, Tobacco Cessation, Depression/Anxiety and Intimate Partner Violence Results POC Urinalysis 2 Dip (Clinic) Office Urine Glucose Negative Last Edit by Valencia Hawkins on 10/26/24 16: 11 Office Urine Protein Negative Last Edit by Valencia Hawkins on 10/26/24 16: 11 Coding Level of Care Code OB Routine Diagnoses Supervision of high risk in second trimester O09.92 Trimester: second trimester 26 weeks gestation of Z3A.26 Weeks of gestation: 26 weeks History of delivery, currently O34.219 History of group B Streptococcus (GBS) infection Z86.19 PCOS (polycystic ovarian syndrome) E28.2 Lactating mother Z39.1 History of shoulder dystocia Assessment and Plan Assessment and Plan (1) Supervision of high-risk : Status: Acute Qualifiers: Trimester: second trimester Qualified Code(s): O09.92 - Supervision of high risk , unspecified, second trimester Comment: [id number]; JERZY 01/26/25; PC: Aden; : Boogie (2) : Status: Acute Qualifiers: Weeks of gestation: 26 weeks Qualified Code(s): Z3A.26 - 26 weeks gestation of Comment: NIPT low risk, nl anatomy. (3) History of delivery, currently : Status: Acute Comment: x1; Desires if smaller infant, if same size plan RLTCS (4) History of group B Streptococcus (GBS) infection: Status: Acute Comment: Last (5) PCOS (polycystic ovarian syndrome): Status: Acute Comment: NOT on Metformin (6) Lactating mother: Status: Acute Comment: Still nursing 5x/day; desires to get baby to 1 year (September) (7) History of shoulder dystocia: Status: Acute Comment: 1st ; csec w/second d/t this Orders: Orders POC Urinalysis 2 Dip (Clinic) Today 10/26/24 1617 <Electronically signed by Valorie Golden DO> Date _ Valorie Ramos DO [facility] Signature: Date (if applicable) CC: ~ [facility] Work Phone: 1(362) 589-236308-08-2025 [facility] [address] [place] [address], [address] [place] [address] OFFICE VISIT Date of Service: 09/30/24 MR#: [id number] Acct: [id number] Name: LEONOR CAMACHO Rep #: [id number] : 1990 Provider: RICHIE Lazo Age/Sex: 33/F [place] [facility] [place]: Signed Intake Vital Signs 08/03/24 08:31 09/06/24 10:56 09/30/24 08:50 Height 5 ft 2 in 5 ft 2 in 5 ft 2 in Weight: 157 lb 159 lb 6 oz 162 lb 4 oz BMI 28.7 29.1 29.7 BP 126/84 H 117/77 124/82 H Intake Visit Reasons: 23wk ob Chief Complaint: 23wk OB [address] Agent Required: No Is patient in pain?: No Allergies No Known Allergies Allergy (Verified 09/30/24 08:48) Medications ?Medication ?Instructions ?Recorded ?Confirmed ?Type NK 07/07/24 09/30/24 History Last Menstrual Period: 01/11/23 : No PFSH PFSH Medical History History of shoulder dystocia PMDD (premenstrual dysphoric disorder) Anemia PCOS (polycystic ovarian syndrome) Surgical History History of H/O oral surgery Family History Father Diabetes Type 1 Mother Hypertension Grandfather Cancer bladder Social History adopted: No household members: spouse and children number of children: 2 current occupational status: employed 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 current occupational exposures/hazards: No pets and animals: Yes pets and animals: dog(s) history of recent travel: No sexually active: Yes Smoking Status: Never smoker second hand exposure: No alcohol intake: current alcohol intake frequency: holidays/special occasions only details: Not while substance use type: does not use well-balanced diet: daily or most days caffeine: No eating out: rarely or never during the past year weight has: remained stable what type of physical activity do you participate in: walking and yoga frequency: 3-4 times per week duration: 15-30 minutes/day kofi/sikh: Jew seatbelt use: always do you feel safe at home: Yes additional social history: : Boogie LEIGH History 3 Elective abortions Hx Para 2 Spontaneous abortions 0 Hx # Term Pregnancies 2 Ectopic pregnancies Hx # Pregnancies Multiple births # of living children 2 Past Pregnancies Del. Date Name GA/Weeks Outcome Route Bth Weight Infant Gen Labor Lgth Anesthesia Del Locatn Provider FOB 04/09/21 Alfred 39 live - full term 7lbs 9 ounces Female epidural [facility] Chantelle Hyman 10/02/23 Devang 39 live - full term 7lbs 10oz Female spinal [facility] Dr. Chantelle Hyman Delivery Date: 04/09/21 Last Updated by: Giselle Hoffmann IOL shoulder dystocia Delivery Date: 10/02/23 Last Updated by: Valencia Hawkins Primary section due to history of shoulder dystocia. Anemia, GBS + HPI 23wk ob Details: LEONOR CAMACHO is a 33 year old who presents for routine OB visit. OB Visit JERZY Calculator Estimated Delivery Date Method Current WG Current Estimate 01/26/25 Ultrasound #1 23w 1d Expected Delivery Route/Plan RLTCS with SM success rate is 78% Specific Issue/Plans Covid status: [] Flu vaccine: [] Tdap vaccine: [] Rhogam: [] LARC form signed: [] Problem list reviewed and updated with the most current plan of care details and appropriate ordersplaced. Relevant counseling for the gestational age provided. Continue routine care and follow up unless otherwise noted in visit notes/problem list details Initial Weight: Not Recorded Date -?-?-?-?-?-?-?-?-?-?-?-?- EGA Weight BP Urine Prot -?-?-?-?-?-?-?-?-?-?-?-?- Glucose FHR FuHt Pres Dilation -?-?-?-?-?-?--?-?-?-?-?-?- Effaced St Visit Note 07/07/24 -?-?-?-?-?-?-?-?-?-?-?-?- 11w 0d 157 lb 2 oz 139/88 -?-?-?-?-?-?-?-?-?-?-?-?- 180 -?-?-?-?-?-?-?-?-?-?-?-?- SM- CRL 3.9cm co ns with LMP 08/03/24 -?-?-?-?-?-?-?-?-?-?-?-?- 14w 6d 157 lb 126/84 Negative -?-?-?-?-?-?-?-?-?-?-?-?- Negative 163 -?-?-?-?-?-?-?-?-?-?-?-?- MH-No VB. Nausea improved. Br US confirm FHT 09/06/24 -?-?-?-?-?-?-?-?-?-?-?-?- 19w 5d 159 lb 6 oz 117/77 Nega tive -?-?-?-?-?-?-?-?-?-?-?-?- Negative 160 -?-?-?-?-?-?-?-?-?-?-?-?- GEN- ramirez discuss ion about success rate of 78%. we discussed that this does not predict baby's health after delivery it it ends up in a shoulder dystocia again however and it only predicts the probability of getting the baby out vaginally 09/30/24 -?-?-?-?-?-?-?-?-?-?-?-?- 23w 1d 162 lb 4 oz 124/82 Nega tive -?-?-?-?-?-?-?-?-?-?-?-?- Negative 145 24 -?-?-?-?-?-?-?-?-?-?-?-?- KW- no vb/lof/ct x. good fm. many questions about doing a ACOG First Trimester First Trimester: Desire for , Alcohol, Tobacco Cessation, Illicit/Recreational Drug/Substance Use, Intimate Partner Violence, Barriers to care, Unstable Housing, Communication Barriers, Environmental/Work Hazards, Anticipated Course of Care, Toxoplasmosis Precations, Use of Any med ications, Sexual activity, Exercise, Dental Care, Sauna/Hot tub use, Seat Belt use, Childbirth classes/Hospital facilities, Travel, Indications for Ultrasound and Screening for Aneuploidy; Discussed Second Trimester Second Trimester: Signs and Symptoms of Labor, Selecting a care provider, Reproductive Life Planning & Contreception, Care Planning, Tobacco Cessation, Depression/Anxiety and Intimate Partner Violence ROS Const Reports system reviewed and no additional complaints, except as documented Eyes Reports system reviewed and no additional complaints, except as documented ENT Reports system reviewed and no additional complaints, except as documented Card Reports system reviewed and no additional complaints, except as documented Resp Reports system reviewed and no additional complaints, except as documented GI Reports system reviewed and no additional complaints, except as documented Reports system reviewed and no additional complaints, except as documented, Denies difficulty voiding, Denies dysuria and Denies urinary frequency Musc Reports system reviewed and no additional complaints, except as documented Skin/Breast Reports system reviewed and no additional complaints, except as documented Neuro Yes system reviewed and no additional complaints, except as documented Psych Reports system reviewed and no additional complaints, except as documented, Denies anhedonia, Denies anxiety and Denies depression Endo Reports system reviewed and no additional complaints, except as documented Estevan/Lymph Reports system reviewed and no additional complaints, except as documented Aller/Immun Reports system reviewed and no additional complaints, except as documented Exam Const General: cooperative, healthy appearing, comfortable and no acute distress Orientation: alert, awake and oriented x3 Neck Neck: normal visual inspection and full ROM Resp Effort & Inspection: normal respiratory effort, able to speak in complete sentences and symmetric chest movement GI Inspection: normal to inspection Palpation: soft Other: gravid Bimanual Exam- Vagina & Uterus: non-tender Skin General: no rashes or lesions noted Neuro General: patient alert, patient awake and patient oriented x3 Cognition: normal cognition Speech: speech normal Gait: normal gait Motor: muscle tone normal throughout Extrem General: normal to inspection and full ROM Psych Appearance: grossly normal and well kempt Mental Status: mental status grossly normal Mood: congruent mood Affect: normal affect Speech and Movement: speech and movement normal Attitude: cooperative Thought Process: normal Thought Content: normal Judgment: judgment good Results POC Urinalysis 2 Dip (Clinic) Office Urine Glucose Negative Last Edit by Adwoa Wade on 09/30/24 08:57 Office Urine Protein Negative Last Edit by Adwoa Wade on 09/30/24 08:57 Coding Level of Care Code OB Routine Diagnoses Supervision of high risk in second trimester O09.92 Trimester: second trimester 23 weeks gestation of Z3A.23 Weeks of gestation: 23 weeks History of delivery, currently O34.219 History of group B Streptococcus (GBS) infection Z86.19 PCOS (polycystic ovarian syndrome) E28.2 Lactating mother Z39.1 History of shoulder dystocia Assessment and Plan Assessment and Plan (1) Supervision of high-risk : Status: Acute Qualifiers: Trimester: second trimester Qualified Code(s): O09.92 - Supervision of high risk , unspecified, second trimester Comment: [id number]; JERZY 01/26/25; PC: Alfred [employer] Devang; : Boogie (2) : Status: Acute Qualifiers: Weeks of gestation: 23 weeks Qualified Code(s): Z3A.23 - 23 weeks gestation of Comment: NIPT low risk, nl anatomy. (3) History of delivery, currently : Status: Acute Comment: x1; Desires if smaller , if same size plan RLTCS (4) History of group B Streptococcus (GBS) infection: Status: Acute Comment: Last (5) PCOS (polycystic ovarian syndrome): Status: Acute Comment: NOT on Metformin (6) Lactating mother: Status: Acute Comment: Still nursing 5x/day; desires to get baby to 1 year (September) (7) History of shoulder dystocia: Status: Acute Comment: 1st ; csec w/second d/t this Orders: Orders Glucose Challenge Gest 1H 50g 09/23/24 O09.92 - Supervision of high risk , unspecified, second trimester, Z13.1 - Encounter for screening for diabetes mellitus HIV 09/23/24 O09.92 - Supervision of high risk , unspecified, second trimester Syphilis Antibodies 09/23/24 O09.92 - Supervision of high risk , unspecified, second trimester CBC W/Diff, Automated 09/23/24 O09.92 - Supervision of high risk , unspecified, second trimester POC Urinalysis 2 Dip (Clinic) Today Plan Details Additional Comments: Cervical cancer screening: [ ] Breast cancer screening: [ ] STD prevention and contraceptive options including their risks, benefits, and alternatives were reviewed with the patient and she chooses: [ ] Encouraged maintenance of a healthy weight and active lifestyle and handout given. Calcium/vitamin D recommendations provided. Annual exam handout including recommendations for good health guidelines and basic screening information given. Problem list up to date, see problem list details for any additional plan information. follow up in one year for annual health maintenance exam or sooner if needed. 09/30/24 0913 s YAIMAM> Date _ Indiana Lazo CNM Cosigner Signature: Date (if applicable) CC: ~ [facility]05-15-2025 Evaluation note* Diagnosis Onset Date Resolution Status Admit Date History of delivery , currently acute July 07 2:38pm History of group B Streptoco ccus (GBS) infection acute July 07, 2024 2 :38pm History of shoulder dystocia acute July 07, 2024 2:38pm Lactating mother acute June 2:38pm PCOS (polycystic ovarian syndrome) a cute July 07, 2024 2:38pm acute July 07, 2024 2:38pm Supervision of high-risk a cut July 07, 2024 2:38pm [facility] Work Phone: 1(757) 808-189505-15-2025 Evaluation note* Diagnosis Onset Date Resolution Status Admit Date History of delivery , currently acute July 07 2:38pm History of group B Streptoco ccus (GBS) infection acute July 07, 2024 2 :38pm History of shoulder dystocia acute July 07, 2024 2:38pm Lactating mother acute June 2:38pm PCOS (polycystic ovarian syndrome) acute July 07, 2024 2 :38pm acute July 07, 2024 2:38pm Supervision of high-risk acute July 07, 2024 2 :38pm History of delivery , currently acute August 03 8:22am History of group B Streptoco ccus (GBS) infection acute August 03, 2024 8:22am History of shoulder dystocia acute August 03, 2024 8:22am Lactating mother acute July 8:22am PCOS (polycystic ovarian syndrome) acute August 03, 2024 8:22am acute August 03 8:22am Supervision of high-risk acute August 03, 2024 8:22am [facility] Work Phone: 1(959) 502-894905-15-2025 Evaluation note* Diagnosis Onset Date Resolution Status Admit Date History of delivery , currently acute July 07 2:38pm History of group B Streptoco ccus (GBS) infection acute July 07, 2024 2 :38pm History of shoulder dystocia acute July 07, 2024 2:38pm Lactating mother acute June 2:38pm PCOS (polycystic ovarian syndrome) acute July 07, 2024 2 :38pm acute July 07, 2024 2:38pm Supervision of high-risk acute July 07, 2024 2 :38pm History of delivery , currently acute August 03 8:22am History of group B Streptoco ccus (GBS) infection acute August 03, 2024 8:22am History of shoulder dystocia acute August 03, 2024 8:22am Lactating mother acute July 8:22am acute August 03 8:22am Supervision of high-risk acute August 03, 2024 8:22am History of delivery , currently acute September 06 10:42am History of group B Streptoco ccus (GBS) infection acute September 06, 2024 10:42am History of shoulder dystocia acute September 06, 2024 10:42am Lactating mother acute August 10:42am PCOS (polycystic ovarian syndrome) acute September 06, 2024 10:42am acute September 06 10:42am Supervision of high-risk acute September 06, 2024 10:42am [employer] Work Phone: 1(618) 813-231805-15-2025 Evaluation note* Diagnosis Onset Date Resolution Status Admit Date History of delivery , currently acute July 07 2:38pm History of group B Streptoco ccus (GBS) infection acute July 07, 2024 2 :38pm History of shoulder dystocia acute July 07, 2024 2:38pm Lactating mother acute June 2:38pm PCOS (polycystic ovarian syndrome) acute July 07, 2024 2 :38pm acute July 07, 2024 2:38pm Supervision of high-risk acute July 07, 2024 2 :38pm History of delivery , currently acute August 03 8:22am History of group B Streptoco ccus (GBS) infection acute August 03, 2024 8:22am History of shoulder dystocia acute August 03, 2024 8:22am Lactating mother acute July 8:22am acute August 03 8:22am Supervision of high-risk acute August 03, 2024 8:22am History of delivery , currently acute September 06 10:42am History of group B Streptoco ccus (GBS) infection acute September 06, 2024 10:42am History of shoulder dystocia acute September 06, 2024 10:42am Lactating mother acute August 10:42am PCOS (polycystic ovarian syndrome) acute September 06, 2024 10:42am acute September 06 10:42am Supervision of high-risk acute September 06, 2024 10:42am History of delivery , currently acute September 30, 2 025 8:46am History of group B Streptoco ccus (GBS) infection acute September 30, 2024 8:46am History of shoulder dystocia acute September 30, 2024 8:46am Lactating mother acute September 302024 8:46am PCOS (polycystic ovarian syndrome) acute September 30, 2024 8:46am acute September 30 8:46am Supervision of high-risk acute September 30, 2024 8:46am [facility] Work Phone: 1(901) 326-225005-15-2025 Evaluation note* Diagnosis Onset Date Resolution Status Admit Date History of delivery , currently acute July 07 2:38pm History of group B Streptococcus (GBS) infection acute 2024 2:38pm History of shoulder dystocia acute July 07, 2024 2:38pm Lactating mother acute June 2:38pm PCOS (polycystic ovarian syndrome) acute July 07, 2024 2 :38pm acute July 07, 2024 2:38pm Supervision of high-risk acute July 07, 2024 2 :38pm History of delivery , currently acute August 03 8:22am History of group B Streptococcus (GBS) infection acute 2024 8:22am History of shoulder dystocia acute August 03, 2024 8:22am Lactating mother acute July 8:22am acute August 03 8:22am Supervision of high-risk acute August 03, 2024 8:22am History of delivery , currently acute September 06 10:42am History of group B Streptococcus (GBS) infection acute 2024 10:42am History of shoulder dystocia acute September 06, 2024 10:42am Lactating mother acute August 10:42am PCOS (polycystic ovarian syndrome) acute September 06, 2024 10:42am acute September 06 10:42am Supervision of high-risk acute September 06, 2024 10:42am History of delivery , currently acute September 30 025 8:46am History of group B Streptococcus (GBS) infection acute 2024 8:46am History of shoulder dystocia acute September 30, 2024 8:46am Lactating mother acute September 302024 8:46am PCOS (polycystic ovarian syndrome) acute September 30, 2024 8:46am acute September 30 8:46am Supervision of high-risk acute September 30, 2024 8:46am History of delivery , currently acute October 3:45pm History of group B Streptococcus (GBS) infection acute 2024 3:45pm History of shoulder dystocia acute October 26, 2024 3:45pm Lactating mother acute 2024 3:45pm PCOS (polycystic ovarian syndrome) acute October 26 2 025 3:45pm acute October 26, 2024 3:45pm Supervision of high-risk acute October 26 2 025 3:45pm [facility] Work Phone: 1(819) 366-665405-15-2025 [facility] [address], [address] [place] [address] OFFICE VISIT Date of Service: 07/07/24 MR#: [id number] Acct: [id number] Name: LEONOR CAMACHO Rep #: [id number] : 1990 Provider: Dr. Cecil Lockhart MD Age/Sex: 33/F [place] [facility] [place]: Signed Intake Vital Signs 06/07/24 13:19 06/29/24 21:24 07/07/24 14:40 07/07/24 14:50 Height 5 ft 2 in 5 ft 2 in 5 ft 2 in 5 ft 2 in Weight: 157 lb 2 oz BMI 28.7 BP 139/88 H Intake Visit Reasons: New OB, unsure of LMP, saw ED for US Right Of Way Agent Required: No Is patient in pain?: No Allergies No Known Allergies Allergy (Verified 07/07/24 14:42) Medications ?Medication ?Instructions ?Recorded ?Confirmed ?Type NK 07/07/24 07/07/24 History Last Menstrual Period: 01/11/23 Zika: Zika virus screening: Negative : No PFSH PFSH Medical History History of shoulder dystocia PMDD (premenstrual dysphoric disorder) Anemia PCOS (polycystic ovarian syndrome) Surgical History History of H/O oral surgery Family History Father Diabetes Type 1 Mother Hypertension Grandfather Cancer bladder Social History adopted: No household members: spouse and children number of children: 2 current occupational status: employed 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 current occupational exposures/hazards: No pets and animals: Yes pets and animals: dog(s) history of recent travel: No sexually active: Yes Smoking Status: Never smoker second hand exposure: No alcohol intake: current alcohol intake frequency: holidays/special occasions only details: Not while substance use type: does not use well-balanced diet: daily or most days caffeine: No eating out: rarely or never during the past year weight has: remained stable what type of physical activity do you participate in: walking and yoga frequency: 3-4 times per week duration: 15-30 minutes/day kofi/sikh: Jew seatbelt use: always do you feel safe at home: Yes 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 Date Name GA/Weeks Outcome Route Bth Weight Infant Gen Labor Lgth Anesthesia Del Locatn Provider FOB 04/09/21 Alfred 39 live - full term 7lbs 9 ounces Female epidural [facility] Chantelle Hyman 10/02/23 Devang 39 live - full term 7lbs 10oz Female spinal [facility] Dr. Chantelle Hyman Delivery Date: 04/09/21 Last Updated by: Giselle Hoffmann IOL shoulder dystocia Delivery Date: 10/02/23 Last Updated by: Valencia Hawkins Primary section due to history of shoulder dystocia. Anemia, GBS + HPI New OB, unsure of LMP, saw ED for US Details: LEONOR CAMACHO is a 33 year old who presents for New OB visit. OB Visit JERZY Calculator Estimated Delivery Date Method Current WG Current Estimate 01/26/25 Ultrasound #1 11w 0d Estimated Due Date: 01/26/25 Expected Delivery Route/Plan RLTCS with Specific Issue/Plans Covid status: [] Flu vaccine: [] Tdap vaccine: [] Rhogam: [] LARC form signed: [] Problem list reviewed and updated with the most current plan of care details and appropriate ordersplaced. Relevant counseling for the gestational age provided. Continue routine care and follow up unless otherwise noted in visit notes/problem list details Initial Weight: Not Recorded Date -?-?-?-?-?-?-?-?-?-?-?-?- EGA Weight BP Urine Prot -?-?-?-?-?-?-?-?-?-?-?-?- Glucose FHR FuHt Pres Dilation -?-?-?-?-?-?-?-?-?-?-?-?- Effaced St Visit Note 07/07/24 -?-?-?-?-?-?-?-?-?-?-?-?- 11w 0d 157 lb 2 oz 139/88 -?-?-?-?-?-?-?-?-?-?-?-?- 180 -?-?-?-?-?-?-?-?-?-?--?-?- SM- CRL 3.9cm co ns with LMP Menstrual History Last Menstrual Period: 01/11/23 Reported LMP: unknown Normal amount/duration: No Frequency in days: irregular since weeks pp On hormonal BC at conception: No hCG+: 06/06/24 Antepartum Record Genetic Screening: Congenital Heart Defect: Other, Neural Tube Defect: Other, Hemoglobinopathy Or Carrier: Other, Cystic Fibrosis: Other, Chromosome Abnormality: Other, Jose-Sachs: Other, Hemophilia: Other, Intellectual Disability/Autism: Other, Recurrent Loss/Stillbirth: Other, Other Structural Defect: Other, Other Genetic Disease: Other and Maternal Metabolic Disorder: Other Infection History: Live with someone with TB or Exposed to TB: No, Patient or Partner has history of Genital Herpes: No, Rash or Viral illness since last mentrual period: No, Prior GBS-Infected child: Yes, History of STD: No, HIV Infection: No, History of Hepatitis: No, Recent travel outside of [place]:No, Concern for hepatitis exposure: No, Varicella immune: Yes (Had chicken pox) and Covid Vaccinated: No Medical History Medical History: Positive: Psychiatric (PMDD), 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), Operations/hospitalizations (see surg hx) and Other (PCOS) and Negative: Diabetes, Hypertension, Heart disease, Auto-immune disorder, Kidney disease/UTI, Neurologic/epilepsy, Depression/ depression, Hepatitis/liver disease, Varicosities/phlebitis, Thyroid dysfunction, Trauma/domestic violence, History of blood transfusions (O+), D (Rh) Sensitized, Pulmonary (e.g.,TB,Asthma), Seasonal allergies, Drug/latex allergies/reactions, Breast, Anesthetic complications, History of abnormal pap, Uterine anomaly/lizzeth, Infertility, Anti- retroviral treatment and Relevant family history ACOG First Trimester First Trimester: Desire for , Alcohol, Tobacco Cessation, Illicit/Recreational Drug/Substance Use, Intimate Partner Violence, Barriers to care, Unstable Housing, Communication Barriers, Environmental/Work Hazards, Anticipated Course of Care, Toxoplasmosis Precations, Use of Any med ications, Sexual activity, Exercise, Dental Care, Sauna/Hot tub use, Seat Belt use, Childbirth classes/Hospital facilities, Travel, Indications for Ultrasound and Screening for Aneuploidy; Discussed Second Trimester Second Trimester: Signs and Symptoms of Labor, Selecting a care provider, Reproductive Life Planning & Contreception, Care Planning, Tobacco Cessation, Depression/Anxiety and Intimate Partner Violence ROS Const Reports system reviewed and no additional complaints, except as documented, Reports fatigue and Denies fever(s) Eyes Reports system reviewed and no additional complaints, except as documented ENT Reports system reviewed and no additional complaints, except as documented Card Denies chest pain and Denies dyspnea Resp Reports system reviewed and no additional complaints, except as documented, Denies cough and Deniesdyspnea GI Denies abdominal pain and Reports nausea Reports system reviewed and no additional complaints, except as documented Musc Reports system reviewed and no additional complaints, except as documented Skin/Breast Reports system reviewed and no additional complaints, except as documented Neuro Yes system reviewed and no additional complaints, except as documented Psych Reports system reviewed and no additional complaints, except as documented Endo Reports system reviewed and no additional complaints, except as documented and Reports fatigue Exam Const General: healthy appearing, comfortable and no acute distress Orientation: alert [facility] Head: normal to inspection, normocephalic and atraumatic Ears: hearing grossly normal bilaterally and external ears normal Nose: external nose normal and nares normal Mouth: oral mucosae normal Teeth and gingiva: dentition normal Eyes General: appearance normal, both eyes and all related structures Neck Neck: normal visual inspection, no lymphadenopathy and supple Thyroid: thyroid normal Chest Chest palpation & inspection: normal inspection of the chest Breast inspection: normal inspection of the breasts and normal inspection of the axillae Breast palpation: normal palpation of the breasts and normal palpation of the axillae Resp Effort & Inspection: normal respiratory effort GI Inspection: normal to inspection Palpation: soft and no hepatosplenomegaly General: bladder normal to palpation External Female Exam: normal external appearance and normal appearance of the urethra Urethra: normal appearance of the urethra Speculum Exam - Vagina: normal appearance of the vagina and normal vaginal discharge Speculum Exam - Cervix: normal appearance of the cervix Bimanual Exam- Vagina & Uterus: normal bimanual exam, bladder normal to palpation, non-tender and other Bimanual Exam- Adnexa, other: non-tender Skin General: no rashes or lesions noted Neuro Motor: muscle tone normal throughout and no movement abnormalities noted Extrem General: normal to inspection and full ROM Supplemental Info [facility] book given and patient encouraged to read about nutrition, exercise, weight gain, and food avoidance in . Coding Level of Care Code OB Routine Diagnoses Supervision of high-risk O09.90 11 weeks gestation of Z3A.11 Weeks of gestation: 11 weeks History of delivery, currently O34.219 History of group B Streptococcus (GBS) infection Z86.19 Lactating mother Z39.1 PCOS (polycystic ovarian syndrome) E28.2 History of shoulder dystocia Assessment and Plan Assessment and Plan (1) Supervision of high-risk : Status: Acute Comment: ; JERZY 01/26/25; PC: Alfred & Devang; : Boogie (2) : Status: Acute Qualifiers: Weeks of gestation: 11 weeks Qualified Code(s): Z3A.11 - 11 weeks gestation of Comment: Discussed genetic/carrier testing - desires genetic w/gender (3) History of delivery, currently : Status: Acute Comment: x1; Desires if smaller , if same size plan RLTCS (4) History of group B Streptococcus (GBS) infection: Status: Acute Comment: Last (5) Lactating mother: Status: Acute Comment: Still nursing 5x/day; desires to get baby to 1 year (September) (6) PCOS (polycystic ovarian syndrome): Status: Acute Comment: NOT on Metformin (7) History of shoulder dystocia: Status: Acute Comment: 1st ; csec w/second d/t this Orders: Orders PAP IG HPV APTIMA 16/18,45 Today Plan Patient oriented to practice and discussed care expectations and screenings. [facility] book offered to patient. Discussed routine and specially indicated labs if needed- patient consents to testing. See problem list details for plan information. Optional screening including maternal carrier screenings, neural tube defect screening, genetic screening options including quad screen, nuchal translucency, sequential screening, and NIPT screening offered to patient and patient chose: nipt 07/07/24 [id number] sujata HAUSER> Date _ Cassandra Lockhart MD Cosigner Signature: Date (if applicable) CC: ~ [facility]05-15-2025 Progress note Author Cassandra Lockhart [facility] Services Note Date/Time July 07, 2024 3:13p [facility] [address], [address] [place] [address] OFFICE VISIT Date of Service: 07/07/24 MR#: [id number] Acct: [id number] Name: LEONOR CAMACHO Rep #: [id number] : 1990 Provider: Dr. Cecil Lockhart MD Age/Sex: 33/F [place] [facility] [place]: Signed Intake Vital Signs 06/07/24 13:19 06/29/24 21:24 07/07/24 14:40 07/07/24 14:50 Height 5 ft 2 in 5 ft 2 in 5 ft 2 in 5 ft 2 in Weight: 157 lb 2 oz BMI 28.7 BP 139/88 H Intake Visit Reasons: New OB, unsure of LMP, saw ED for US Right Of Way Agent Required: No Is patient in pain?: No Allergies No Known Allergies Allergy (Verified 07/07/24 14:42) Medications ?Medication ?Instructions ?Recorded ?Confirmed ?Type NK 07/07/24 07/07/24 History Last Menstrual Period: 01/11/23 Zika: Zika virus screening: Negative : No PFSH PFSH Medical History History of shoulder dystocia PMDD (premenstrual dysphoric disorder) Anemia PCOS (polycystic ovarian syndrome) Surgical History History of H/O oral surgery Family History Father Diabetes Type 1 Mother Hypertension Grandfather Cancer bladder Social History adopted: No household members: spouse and children number of children: 2 current occupational status: employed 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 current occupational exposures/hazards: No pets and animals: Yes pets and animals: dog(s) history of recent travel: No sexually active: Yes Smoking Status: Never smoker second hand exposure: No alcohol intake: current alcohol intake frequency: holidays/special occasions only details: Not while substance use type: does not use well-balanced diet: daily or most days caffeine: No eating out: rarely or never during the past year weight has: remained stable what type of physical activity do you participate in: walking and yoga frequency: 3-4 times per week duration: 15-30 minutes/day kofi/sikh: Jew seatbelt use: always do you feel safe at home: Yes additional social history: : [employer] History 3 Elective abortions Hx Para 2 Spontaneous abortions 0 Hx # Term Pregnancies 2 Ectopic pregnancies Hx # Pregnancies Multiple births # of living children 2 Past Pregnancies Del. Date Name GA/Weeks Outcome Route Bth Weight Infant Gen Labor Lgth Anesthesia Del Locatn Provider FOB 04/09/21 Alfred 39 live - full term 7lbs 9 ounces Female epidural [facility] Chantelle Hyman 10/02/23 Devang 39 live - full term 7lbs 10oz Female spinal [facility] Dr. Chantelle Hyman Delivery Date: 04/09/21 Last Updated by: Giselle Hoffmann IOL shoulder dystocia Delivery Date: 10/02/23 Last Updated by: Valencia Hawkins Primary section due to history of shoulder dystocia. Anemia, GBS + HPI New OB, unsure of LMP, saw ED for US Details: LEONOR CAMACHO is a 33 year old who presents for New OB visit. OB Visit JERZY Calculator Estimated Delivery Date Method Current WG Current Estimate 01/26/25 Ultrasound #1 11w 0d Estimated Due Date: 01/26/25 Expected Delivery Route/Plan RLTCS with Specific Issue/Plans Covid status: [] Flu vaccine: [] Tdap vaccine: [] Rhogam: [] LARC form signed: [] Problem list reviewed and updated with the most current plan of care details and appropriate orders placed. Relevant counseling for the gestational age provided. Continue routine care and follow up unless otherwise noted in visit notes/problem list details Initial Weight: Not Recorded Date -?-?-?-?-?-?-?-?-?-?-?-?- EGA Weight BP Urine Prot -?-?-?-?-?-?-?-?-?-?-?-?- Glucose FHR FuHt Pres Dilation -?-?-?-?-?-?-?-?-?-?-?-?- Effaced St Visit Note 07/07/24 -?-?-?-?-?-?-?-?-?-?-?-?- 11w 0d 157 lb 2 oz 139/88 -?-?-?-?-?-?-?-?-?-?-?-?- 180 -?-?-?-?-?-?-?-?-?-?--?-?- SM- CRL 3.9cm co ns with LMP Menstrual History Last Menstrual Period: 01/11/23 Reported LMP: unknown Normal amount/duration: No Frequency in days: irregular since weeks pp On hormonal BC at conception: No hCG+: 06/06/24 Antepartum Record Genetic Screening: Congenital Heart Defect: Other, Neural Tube Defect: Other, Hemoglobinopathy Or Carrier: Other, Cystic Fibrosis: Other, Chromosome Abnormality: Other, Jose-Sachs: Other, Hemophilia: Other, Intellectual Disability/Autism: Other, Recurrent Loss/Stillbirth: Other, Other Structural Defect: Other, Other Genetic Disease: Other and Maternal Metabolic Disorder: Other Infection History: Live with someone with TB or Exposed to TB: No, Patient or Partner has history of Genital Herpes: No, Rash or Viral illness since last mentrual period: No, Prior GBS-Infected child: Yes, History of STD: No, HIV Infection: No, History of Hepatitis: No, Recent travel outside of [place]: No, Concern for hepatitis exposure: No, Varicella immune: Yes (Had chicken pox) and Covid Vaccinated: No Medical History Medical History: Positive: Psychiatric (PMDD), 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), Operations/hospitalizations (see surg hx) and Other (PCOS) and Negative: Diabetes, Hypertension, Heart disease, Auto-immune disorder, Kidney disease/UTI, Neurologic/epilepsy, Depression/ depression, Hepatitis/liver disease, Varicosities/phlebitis, Thyroid dysfunction, Trauma/domestic violence, History of blood transfusions (O+), D (Rh) Sensitized, Pulmonary (e.g.,TB,Asthma), Seasonal allergies, Drug/latex allergies/reactions, Breast, Anesthetic complications, History of abnormal pap, Uterine anomaly/lizzeth, Infertility, Anti-retroviral treatment and Relevant family history ACOG First Trimester First Trimester: Desire for , Alcohol, Tobacco Cessation, Illicit/Recreational Drug/Substance Use, Intimate Partner Violence, Barriers to care, Unstable Housing, Communication Barriers, Environmental/Work Hazards, Anticipated Course of Care, Toxoplasmosis Precations, Use of Any medications, Sexual activity, Exercise, Dental Care, Sauna/Hot tub use, Seat Belt use, Childbirth classes/Hospital facilities, Travel, Indications for Ultrasound and Screening for Aneuploidy; Discussed Second Trimester Second Trimester: Signs and Symptoms of Labor, Selecting a care provider, Reproductive Life Planning & Contreception, Care Planning, Tobacco Cessation, Depression/Anxiety and Intimate Partner Violence ROS Const Reports system reviewed and no additional complaints, except as documented, Reports fatigue and Denies fever(s) Eyes Reports system reviewed and no additional complaints, except as documented ENT Reports system reviewed and no additional complaints, except as documented Card Denies chest pain and Denies dyspnea Resp Reports system reviewed and no additional complaints, except as documented, Denies cough and Denies dyspnea GI Denies abdominal pain and Reports nausea Reports system reviewed and no additional complaints, except as documented Musc Reports system reviewed and no additional complaints, except as documented Skin/Breast Reports system reviewed and no additional complaints, except as documented Neuro Yes system reviewed and no additional complaints, except as documented Psych Reports system reviewed and no additional complaints, except as documented Endo Reports system reviewed and no additional complaints, except as documented and Reports fatigue Exam Const General: healthy appearing, comfortable and no acute distress Orientation: alert [facility] Head: normal to inspection, normocephalic and atraumatic Ears: hearing grossly normal bilaterally and external ears normal Nose: external nose normal and nares normal Mouth: oral mucosae normal Teeth and gingiva: dentition normal Eyes General: appearance normal, both eyes and all related structures Neck Neck: normal visual inspection, no lymphadenopathy and supple Thyroid: thyroid normal Chest Chest palpation & inspection: normal inspection of the chest Breast inspection: normal inspection of the breasts and normal inspection of the axillae Breast palpation: normal palpation of the breasts and normal palpation of the axillae Resp Effort & Inspection: normal respiratory effort GI Inspection: normal to inspection Palpation: soft and no hepatosplenomegaly General: bladder normal to palpation External Female Exam: normal external appearance and normal appearance of the urethra Urethra: normal appearance of the urethra Speculum Exam - Vagina: normal appearance of the vagina and normal vaginal discharge Speculum Exam - Cervix: normal appearance of the cervix Bimanual Exam- Vagina & Uterus: normal bimanual exam, bladder normal to palpation, non-tender and other Bimanual Exam- Adnexa, other: non-tender Skin General: no rashes or lesions noted Neuro Motor: muscle tone normal throughout and no movement abnormalities noted Extrem General: normal to inspection and full ROM Supplemental Info ACOG book given and patient encouraged to read about nutrition, exercise, weight gain, and food avoidance in . Coding Level of Care Code OB Routine Diagnoses Supervision of high-risk O09.90 11 weeks gestation of Z3A.11 Weeks of gestation: 11 weeks History of delivery, currently O34.219 History of group B Streptococcus (GBS) infection Z86.19 Lactating mother Z39.1 PCOS (polycystic ovarian syndrome) E28.2 History of shoulder dystocia Assessment and Plan Assessment and Plan (1) Supervision of high-risk : Status: Acute Comment: ; JERZY 01/26/25; PC: Aden; : Boogie (2) : Status: Acute Qualifiers: Weeks of gestation: 11 weeks Qualified Code(s): Z3A.11 - 11 weeks gestation of Comment: Discussed genetic/carrier testing - desires genetic w/gender (3) History of delivery, currently : Status: Acute Comment: x1; Desires if smaller infant, if same size plan RLTCS (4) History of group B Streptococcus (GBS) infection: Status: Acute Comment: Last (5) Lactating mother: Status: Acute Comment: Still nursing 5x/day; desires to get baby to 1 year (September) (6) PCOS (polycystic ovarian syndrome): Status: Acute Comment: NOT on Metformin (7) History of shoulder dystocia: Status: Acute Comment: 1st ; csec w/second d/t this Orders: Orders PAP IG HPV APTIMA 16/18,45 Today Plan Patient oriented to practice and discussed care expectations and screenings. ACOG book offered to patient. Discussed routine and specially indicated labs if needed- patient consents to testing. See problem list details for plan information. Optional screening including maternal carrier screenings, neural tube defect screening, genetic screening options including quad screen, nuchal translucency, sequential screening, and NIPT screening offered to patient and patient chose: nipt 07/07/24 1513 <Electronically signed by Cassandra ernst MD> Date _ Cassandra Lockhart MD Cosigner Signature: Date (if applicable) CC: ~ [facility] Work Phone: [phone] Discharge summary [facility] Medical Records Department [address] [place] [address] Emergency Department Summary 06/07/24 MR#: [id number] Acct: [id number] Name: LEONOR CAMACHO Rep #:[id number] : 1990 33 From: Heriberto Frazier MD PCP: Dr. Miguel Vigil MD Status:REG E R Location: ED HPI History of Present Illness Chief Complaint: Abd Pain Narrative Narrative: 33-year-old female, G3, P2 presents at the direction of her [facility]INGS CON[facility]ATOR's at [place] for evaluation for possible ectopic . She relates history that she has had a regular menses after her second child that was delivered by section 8 months ago. She has always had irregular menses because she has history of PCO/PCO candidacy. Her last menses was approximately a month ago. She had some spotting in between. She felt nauseated and vomited. She states she took multiple home pregnancytest that were positive. She tried to make an appointment with her FURNISHINGS CONSERVATOR but they states that she needs to be ruled out for an ectopic given that she has been having a few weeks of rightpelvic pain that is intermittent. [facility] Medical History (Updated 06/07/24 @ 18:50 by Heriberto Frazier MD) Supervision of high-risk History of shoulder dystocia Positive GBS test depression PMDD (premenstrual dysphoric disorder) Anemia PCOS (polycystic ovarian syndrome) Home Medications ?Medication ?Instructions ?Recorded ?Last Taken ?Type norethindrone acetate 5 mg tablet 5 mg PO .COMPLEX #45 tabs 04/26/24 Unknown Rx Allergy/AdvReac Type Severity Reaction Status Date / Time No Known Allergies Allergy Verified 06/07/24 13:19 Family History Father Diabetes Type 1 Mother Hypertension Grandfather Cancer bladder Surgical History H/O oral surgery Social History adopted: No household members: spouse and children number of children: 1 current occupational status: employed 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 and animals: Yes pets and animals: dog(s) history of recent travel: No sexually active: Yes Smoking Status: Never smoker alcohol intake: current alcohol intake frequency: holidays/special occasions only details: none with substance use type: does not use well-balanced diet: daily or most days caffeine: No eating out: rarely or never during the past year weight has: remained stable what type of physical activity do you participate in: walking, running and weight training kofi/sikh: Jew seatbelt use: always do you feel safe at home: Yes additional social history: 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 Cardiovascular: No chest pain. No palpitations. No pedal edema. Respiratory: No cough, no shortness of breath. Abdominal: Right lower quadrant abdominal pain. Intermittent nausea and vomiting. Genitourinary: No dysuria. No hematuria. Right sided pelvic pain. No vaginal bleeding or discharge. Musculoskeletal: No myalgias. No arthralgias. EXAM Physical Exam Narrative Exam Narrative: Afebrile. Vital signs noted. Nontoxic-appearing. Cardiovascular examination reveals a regular rate and rhythm. Lungs are clear to auscultation bilaterally. Abdomen is soft, nontender without guardingor rebound. Positive bowel sounds. Neurological examination is nonfocal and nonlateralizing. No noted pedal edema. Const Vital Signs: 06/07/24 13:19 06/07/24 16:28 06/07/24 18:00 Temperature 97.4 F L Temperature Source Temporal Pulse Rate 98 96 84 Respiratory Rate 15 18 15 Blood Pressure 135/85 H 116/82 H Blood Pressure Mean 101 93 Pulse Ox 99 100 100 Oxygen Delivery Method Room Air Room Air Room Air MDM MDM MDM Narrative Medical decision making narrative: Differential diagnosis includes but not limited to corpus luteal pain versus ectopic versus acute appendicitis versus abdominal wall pain. I have low suspicion for acute appendicitis based on her clinical examination and the length of time that she has had pain that is intermittent. I do not feel CT scanning is indicated. I reviewed her labs and she has slightly elevated white count of 12.0 which I think is nonspecific,hemoglobin 12.6 with hematocrit 37.9, platelet count normal at 198. Sodium 139, potassium 4.0, chloride 103, CO2 25.2 with BUN 8 andcreatinine normal at 0.84. LFTs show alk phos slightly elevated at 115. Serum is positive. Urinalysis shows 5-10 WBCs but negative for nitrites. Iwill send for culture. Quantitative beta-hCG is 47,126. I reviewed the radiology report of the transvaginal ultrasound. It shows an intrauterine with 1 gestational sac/fetus with an average heart rate of 129 bpm. I discussed patient with Dr. Valorie Adams with [facility] who agrees with outpatient follow-up in approximately 2 weeks. At this point in time, I feel she can be discharged to follow-up with F[employer]ISHINGS CONSERVATOR. She will return with vaginal bleeding, increased pain, new or worsening symptoms. Lab Data Labs: Laboratory Results - last 24 hr 06/07/24 06/07/24 06/07/24 15:00 16:15 16:30 WBC 12.0 H RBC 4.48 Hgb 12.6 Hct 37.9 MCV 84.6 MCH 28.1 MCHC 33.2 RDW Std Deviation 41.8 RDW Coeff of Sukhjinder 13.5 Plt Count 198 MPV 12.1 H Immature Gran % (Auto) 0.500 Neut % (Auto) 79.4 H Lymph % (Auto) 13.3 L [place] % (Auto) 6.3 Eos % (Auto) 0.2 Baso % (Auto) 0.3 Absolute Neuts (auto) 9.5 H Absolute Lymphs (auto) 1.59 Nucleated RBC % 0 Platelet Estimate ADEQUATE Sodium 139 Potassium 4.0 Chloride 103 Carbon Dioxide 25.2 Anion Gap 11 BUN 8 Creatinine 0.84 Estim Creat Clear Calc 90.52 Est GFR (MDRD) Non-Af 95 BUN/Creatinine Ratio 10.0 Glucose 123 H Calcium 9.9 Total Bilirubin 0.19 AST 17 ALT 11 Alkaline Phosphatase 115 H Total Protein 7.7 Albumin 4.4 Globulin 3.2 Albumin/Globulin Ratio 1.4 Lipase 37 HCG, Quant 44669 H Serum , Qual POSITIVE Urine Color Yellow Urine Clarity Sl. Cloudy Urine pH 7.0 Ur Specific [place] 1.010 Urine Protein 15 H Urine Glucose (UA) Normal Urine Ketones Negative Urine Occult Blood Negative Urine Nitrite Negative Urine Bilirubin Negative Urine Urobilinogen Normal Ur Leukocyte Esterase 25 H Urine RBC 0-5 SEEN Urine WBC 5-10 SEEN Ur Squamous Epith Cells 0-5 SEEN Urine Bacteria 1+ Urine Mucus 0 SEEN Radiography Diagnostic Testing: Clinical Impression(s) from Imaging Studies Obstetrics Ultrasound 06/07/24 16:08 IMPRESSION: UNREMARKABLE FIRST TRIMESTER ULTRASOUND. Reading Location: [facility] Management Discussion w/another healthcare provider: Lingo Cleaner (Dr. Adams, [facility]) Discharge Plan Triage Chief Complaint: Abd Pain ED Provider: Heriberto Frazier Dx/Rx/DC Orders Clinical Impression: First trimester , Abdominal pain Instructions: 1st Trimester, First Trimester, ED Pelvic Pain, Unknown Cause Prescriptions: No Action norethindrone acetate 5 mg tablet 5 mg PO .COMPLEX Qty: 45 0RF Rx Instructions: 5 mg PO tid until bleeding stops X 24 hr then bid to finish Rx Primary Care Provider: Miguel Vigil Referrals: Valorie Ramos DO [Med Staff - Active Staff] - 1-2 Weeks Miguel Vigil MD [Primary Care Provider] - Activity Restrictions/Additional Instructions: Follow-up with the FURNISHINGS CONSERVATOR in 2 weeks. Return with vaginal bleeding, increased pain, new or worsening symptoms. Start vitamins. Print Language: Sinhala Disposition Disposition: Home, Self Care What to do if you have Problems For any increased pain, shortness of breath, bleeding, nausea or vomiting, chestpain, or any unexpected problems, contact your Primary Care Provider. Call [facility] ([phone]) or report tothe closest Emergency Room. Call 911 if necessary. 06/07/24 1851 Cosigner Signature (if applicable): CC: Dr. Miguel Vigil MD ~ Signed [facility]04-15-2025 Radiology Diagnostic study note [facility] Imaging Services [address] [place] [address] Transvaginal w/Preg US MR#: [id number] Acct: [id number] Name: LEONOR CAMACHO Rep #: [id number] : 1990 F 33 From: Bharath Mirza MD PCP: Dr. Miguel Vigil MD Status: REG E R Study:Transvaginal w/Preg US Date of Exam: 06/07/24 Exam# [id number] Ordering Dr: Isidro Angulo YOKE PRESSER-C PROCEDURE: TRANSVAGINAL W/PREG US 06/07/2024 REASON FOR EXAM: ABDOMINAL PAIN/BLEEDING TECHNIQUE: Transvaginal FINDINGS: Comments: Number of Gestational Sacs: 1 Gestational Sac Shape: Normal Number of Fetuses: 1 Heart Rate: 129 (average) Survey of Visible Anatomic Structures: Grossly unremarkable for gestational age. Nasal Bones: Yolk Sac: Present and unremarkable. Placenta: Presently not well-visualized Amniotic Fluid Volume: Subjectively normal for gestational age. Uterine Abnormalities: Maternal uterus is unremarkable. Ovaries / Adnexa: Both maternal ovaries are visualized and unremarkable. DIMENSIONS: Parameter Measurement / EGA Abrams Rump Length: 5 mm/6 weeks 3 days Gestational Sac: 20 mm/6 weeks 6 days Yolk Sac: 3 mm/ ESTIMATED GESTATIONAL AGE: By Ultrasound: 6 weeks 5 days By LMP: 5 weeks 2 days ESTIMATED DATE OF DELIVERY: By Ultrasound: 01/26/2025 By LMP: 02/05/2025 US/Transvaginal w/Preg US IMPRESSION: UNREMARKABLE FIRST TRIMESTER ULTRASOUND. Reading Location: [id number] CC: JOSETTE Moran; Dr. Miguel Vigil MD ~ Resp Ther: Signed [facility]04-15-2025 Discharge summary Author Heriberto Frazier [facility] Note Date/Time June 07, 2024 6:5 1pm [facility] Medical Records Department [address] [place] [address] Emergency Department Summary 06/07/24 MR#: [id number] Acct: [id number] Name: LEONOR CAMACHO Rep #:[id number] : 1990 33 From: Heriberto Frazier MD PCP: Dr. Miguel Vigil MD Status:REG E R Location: ED HPI History of Present Illness Chief Complaint: Abd Pain Narrative Narrative: 33-year-old female, G3, P2 presents at the direction of her [facility]INGS CONSERVATOR's at [place] for evaluation for possible ectopic . She relates history that she has had a regular menses after her second child that was delivered by section 8 months ago. She has always had irregular menses because she has history of PCO/PCO candidacy. Her last menses was approximately a month ago. She had some spotting in between. She felt nauseated and vomited. She states she took multiple home test that were positive. She tried to make an appointment with her FURNISHINGS CONSERVATOR but they states that she needs to be ruled out for an ectopic given that she has been having a few weeks of rightpelvic pain that is intermittent. [facility] Medical History (Updated 06/07/24 @ 18:50 by Heriberto Frazier MD) Supervision of high-risk History of shoulder dystocia Positive GBS test depression PMDD (premenstrual dysphoric disorder) Anemia PCOS (polycystic ovarian syndrome) Home Medications ?Medication ?Instructions ?Recorded ?Last Taken ?Type norethindrone acetate 5 mg tablet 5 mg PO .COMPLEX #45 tabs 04/26/24 Unknown Rx Allergy/AdvReac Type Severity Reaction Status Date / Time No Known Allergies Allergy Verified 06/07/24 13:19 Family History Father Diabetes Type 1 Mother Hypertension Grandfather Cancer bladder Surgical History H/O oral surgery Social History adopted: No household members: spouse and children number of children: 1 current occupational status: employed 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 and animals: Yes pets and animals: dog(s) history of recent travel: No sexually active: Yes Smoking Status: Never smoker alcohol intake: current alcohol intake frequency: holidays/special occasions only details: none with substance use type: does not use well-balanced diet: daily or most days caffeine: No eating out: rarely or never during the past year weight has: remained stable what type of physical activity do you participate in: walking, running and weight training kofi/sikh: Jew seatbelt use: always do you feel safe at home: Yes additional social history: Boogie LEIGH 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 Cardiovascular: No chest pain. No palpitations. No pedal edema. Respiratory: No cough, no shortness of breath. Abdominal: Right lower quadrant abdominal pain. Intermittent nausea and vomiting. Genitourinary: No dysuria. No hematuria. Right sided pelvic pain. No vaginal bleeding or discharge. Musculoskeletal: No myalgias. No arthralgias. EXAM Physical Exam Narrative Exam Narrative: Afebrile. Vital signs noted. Nontoxic-appearing. Cardiovascular examination reveals a regular rate and rhythm. Lungs are clear to auscultation bilaterally. Abdomen is soft, nontender without guarding or rebound. Positive bowel sounds. Neurological examination is nonfocal and nonlateralizing. No noted pedal edema. Const Vital Signs: 06/07/24 13:19 06/07/24 16:28 06/07/24 18:00 Temperature 97.4 F L Temperature Source Temporal Pulse Rate 98 96 84 Respiratory Rate 15 Blood Pressure 135/85 H 116/82 H Blood Pressure Mean 101 93 Pulse Ox 99 100 100 Oxygen Delivery Method Room Air Room Air Room Air MDM MDM MDM Narrative Medical decision making narrative: Differential diagnosis includes but not limited to corpus luteal pain versus ectopic versus acute appendicitis versus abdominal wall pain. I have low suspicion for acute appendicitis based on her clinical examination and the length of time that she has had pain that is intermittent. I do not feel CT scanning is indicated. I reviewed her labs and she has slightly elevated white count of 12.0 which I think is nonspecific, hemoglobin 12.6 with hematocrit 37.9, platelet count normal at 198. Sodium 139, potassium 4.0, chloride 103, CO2 25.2 with BUN 8 andcreatinine normal at 0.84. LFTs show alk phos slightly elevated at 115. Serum is positive. Urinalysis shows 5-10 WBCs but negative for nitrites. [facility] send for culture. Quantitative beta-hCG is 47,126. I reviewed the radiology report of the transvaginal ultrasound. It shows an intrauterine with 1 gestational sac/fetus with an average heart rate of 129 bpm. I discussed patient with Dr. Valorie Adams with [facility] who agrees with outpatient follow-up in approximately 2 weeks. At this point in time, I feel she can be discharged to follow-up with F[employer]INGS CON[employer]ATOR. She will return with vaginal bleeding, increased pain, new or worsening symptoms. Lab Data Labs: Laboratory Results - last 24 hr 06/07/24 06/07/24 06/07/24 15:00 16:15 16:30 WBC 12.0 H RBC 4.48 Hgb 12.6 Hct 37.9 MCV 84.6 MCH 28.1 MCHC 33.2 RDW Std Deviation 41.8 RDW Coeff of Sukhjinder 13.5 Plt Count 198 MPV 12.1 H Immature Gran % (Auto) 0.500 Neut % (Auto) 79.4 H Lymph % (Auto) 13.3 L [place] % (Auto) 6.3 Eos % (Auto) 0.2 Baso % (Auto) 0.3 Absolute Neuts (auto) 9.5 H Absolute Lymphs (auto) 1.59 Nucleated RBC % 0 Platelet Estimate ADEQUATE Sodium 139 Potassium 4.0 Chloride 103 Carbon Dioxide 25.2 Anion Gap 11 BUN 8 Creatinine 0.84 Estim Creat Clear Calc 90.52 Est GFR (MDRD) Non-Af 95 BUN/Creatinine Ratio 10.0 Glucose 123 H Calcium 9.9 Total Bilirubin 0.19 AST 17 ALT 11 Alkaline Phosphatase 115 H Total Protein 7.7 Albumin 4.4 Globulin 3.2 Albumin/Globulin Ratio 1.4 Lipase 37 HCG, Quant 25685 H Serum , Qual POSITIVE Urine Color Yellow Urine Clarity Sl. Cloudy Urine pH 7.0 Ur Specific [place] 1.010 Urine Protein 15 H Urine Glucose (UA) Normal Urine Ketones Negative Urine Occult Blood Negative Urine Nitrite Negative Urine Bilirubin Negative Urine Urobilinogen Normal Ur Leukocyte Esterase 25 H Urine RBC 0-5 SEEN Urine WBC 5-10 SEEN Ur Squamous Epith Cells 0-5 SEEN Urine Bacteria 1+ Urine Mucus 0 SEEN Radiography Diagnostic Testing: Clinical Impression(s) from Imaging Studies Obstetrics Ultrasound 06/07/24 16:08 IMPRESSION: UNREMARKABLE FIRST TRIMESTER ULTRASOUND. Reading Location: [facility] Management Discussion w/another healthcare provider: Lingo Cleaner (Dr. Adams, [facility]) Discharge Plan Triage Chief Complaint: Abd Pain ED Provider: Heriberto Frazier Dx/Rx/DC Orders Clinical Impression: First trimester , Abdominal pain Instructions: 1st Trimester, First Trimester, ED Pelvic Pain, Unknown Cause Prescriptions: No Action norethindrone acetate 5 mg tablet 5 mg PO .COMPLEX Qty: 45 0RF Rx Instructions: 5 mg PO tid until bleeding stops X 24 hr then bid to finish Rx Primary Care Provider: Miguel Vigil Referrals: Valorie Ramos DO [Med Staff - Active Staff] - 1-2 Weeks Miguel Vigil MD [Primary Care Provider] - Activity Restrictions/Additional Instructions: Follow-up with the FURNISHINGS CONSERVATOR in 2 weeks. Return with vaginal bleeding, increased pain, new or worsening symptoms. Start vitamins. Print Language: Sinhala Disposition Disposition: Home, Self Care What to do if you have Problems For any increased pain, shortness of breath, bleeding, nausea or vomiting, chestpain, or any unexpected problems, contact your Primary Care Provider. Call [facility] ([phone]) or report to the closest Emergency Room. Call 911 if necessary. 06/07/24 185 <Electronically signed by Heriberto Frazier MD> Cosigner Signature (if applicable): CC: Dr. Miguel Vigil MD ~ Signed [facility] Work Phone: Evaluation note* Diagnosis Onset Date Resolution Status resolved Supervision of normal first resolved COVID-19 affecting , antepartum resolved COVID-19 affecting , antepartum resolved resolved Supervision of normal first resolved Anemia acute COVID-19 affecting , antepartum resolved resolved Supervision of normal first resolved Anemia acute COVID-19 affecting , antepartum resolved Decreased movements in third trimester resolved resolved Supervision of normal first resolved Anemia acute COVID-19 affecting , antepartum resolved Decreased movements in third trimester resolved resolved Supervision of normal first resolved Anemia acute COVID-19 affecting , antepartum resolved Decreased movements in third trimester resolved resolved Supervision of normal first resolved Anemia acute Vaginal delivery acute COVID-19 affecting , antepartum resolved resolved Shoulder dystocia during labor and delivery resolved Supervision of normal first resolved [facility] Work Phone: evaluation note* Diagnosis Onset Date Resolution Status PMDD (premenstrual dysphoric disorder) acute [facility] Work Phone: evaluation note* Diagnosis Onset Date Resolution Status PMDD (premenstrual dysphoric disorder) acute Anemia acute PMDD (premenstrual dysphoric disorder) acute acute Supervision of high-risk acute [facility] Work Phone: evaluation note* Diagnosis Onset Date Resolution Status PMDD (premenstrual dysphoric disorder) acute Anemia acute PMDD (premenstrual dysphoric disorder) acute acute Supervision of high-risk acute Anemia acute PMDD (premenstrual dysphoric disorder) acute acute Supervision of high-risk acute [facility] Work Phone: evaluation note* Diagnosis Onset Date Resolution Status Anemia acute PMDD (premenstrual dysphoric disorder) acute acute Supervision of high-risk acute Anemia acute PMDD (premenstrual dysphoric disorder) acute acute Supervision of high-risk acute Anemia acute Nausea and vomiting during acute PMDD (premenstrual dysphoric disorder) acute acute Supervision of high-risk acute [facility] Work Phone: evaluation noteNo assessment information available [facility] Work Phone: evaluation note* Diagnosis Onset Date Resolution Status Admit Date History of delivery , currently acute July 07 2:38pm History of group B Streptoco ccus (GBS) infection acute July 07, 2024 2 :38pm History of shoulder dystocia acute July 07, 2024 2:38pm Lactating mother acute June 2:38pm PCOS (polycystic ovarian syndrome) a cute July 07, 2024 2:38pm acute July 07, 2024 2:38pm Supervision of high-risk a cute July 07, 2024 2:38pm [facility] Work Phone: Hospital Discharge instructions Additional Instructions Follow-up with the FURNISHINGS CONSERVATOR in 2 weeks. Return with vaginal bleeding, increased pain, new or worsening symptoms. Start vitamins.[facility] Work Phone: Progress note Author Indiana Lazo [facility] Note Date/Time September 30, 2024 9:1 3am [facility] [address] [place] [address], [address] [place] [address] OFFICE VISIT Date of Service: 09/30/24 MR#: [id number] Acct: [id number] Name: LEONOR CAMACHO Rep #: [id number] : 1990 Provider: RICHIE Lazo Age/Sex: 33/F [place] [facility] [place]: Signed Intake Vital Signs 08/03/24 08:31 09/06/24 10:56 09/30/24 08:50 Height 5 ft 2 in 5 ft 2 in 5 ft 2 in Weight: 157 lb 159 lb 6 oz 162 lb 4 oz BMI 28.7 29.1 29.7 BP 126/84 H 117/77 124/82 H Intake Visit Reasons: 23wk ob Chief Complaint: 23wk OB Right Of [address] Agent Required: No Is patient in pain?: No Allergies No Known Allergies Allergy (Verified 09/30/24 08:48) Medications ?Medication ?Instructions ?Recorded ?Confirmed ?Type NK 07/07/24 09/30/24 History Last Menstrual Period: 01/11/23 : No PFSH PFSH Medical History History of shoulder dystocia PMDD (premenstrual dysphoric disorder) Anemia PCOS (polycystic ovarian syndrome) Surgical History History of H/O oral surgery Family History Father Diabetes Type 1 Mother Hypertension Grandfather Cancer bladder Social History adopted: No household members: spouse and children number of children: 2 current occupational status: employed 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 current occupational exposures/hazards: No pets and animals: Yes pets and animals: dog(s) history of recent travel: No sexually active: Yes Smoking Status: Never smoker second hand exposure: No alcohol intake: current alcohol intake frequency: holidays/special occasions only details: Not while substance use type: does not use well-balanced diet: daily or most days caffeine: No eating out: rarely or never during the past year weight has: remained stable what type of physical activity do you participate in: walking and yoga frequency: 3-4 times per week duration: 15-30 minutes/day kofi/sikh: Jew seatbelt use: always do you feel safe at home: Yes additional social history: : [employer]og[employer] LEIGH History 3 Elective abortions Hx Para 2 Spontaneous abortions 0 Hx # Term Pregnancies 2 Ectopic pregnancies Hx # Pregnancies Multiple births # of living children 2 Past Pregnancies Del. Date Name GA/Weeks Outcome Route Bth Weight Gen Labor Lgth Anesthesia Del Locatn Provider FOB 04/09/21 Alfred 39 live - full term 7lbs 9 ounces Female epidural [facility] Chantelle Hyman 10/02/23 Devang 39 live - full term 7lbs 10oz Female spinal [facility] Dr. Chantelle Hyman Delivery Date: 04/09/21 Last Updated by: Giselle Hoffmann IOL shoulder dystocia Delivery Date: 10/02/23 Last Updated by: Valencia Hawkins Primary section due to history of shoulder dystocia. Anemia, GBS + HPI 23wk ob Details: LEONOR CAMACHO is a 33 year old who presents for routine OB visit. OB Visit JERZY Calculator Estimated Delivery Date Method Current WG Current Estimate 01/26/25 Ultrasound #1 23w 1d Expected Delivery Route/Plan RLTCS with SM success rate is 78% Specific Issue/Plans Covid status: [] Flu vaccine: [] Tdap vaccine: [] Rhogam: [] LARC form signed: [] Problem list reviewed and updated with the most current plan of care details and appropriate orders placed. Relevant counseling for the gestational age provided. Continue routine care and follow up unless otherwise noted in visit notes/problem list details Initial Weight: Not Recorded Date -?-?-?-?-?-?-?-?-?-?-?-?- EGA Weight BP Urine Prot -?-?-?-?-?-?-?-?-?-?-?-?- Glucose FHR FuHt Pres Dilation -?-?-?-?-?-?--?-?-?-?-?-?- Effaced St Visit Note 07/07/24 -?-?-?-?-?-?-?-?-?-?-?-?- 11w 0d 157 lb 2 oz 139/88 -?-?-?-?-?-?-?-?-?-?-?-?- 180 -?-?-?-?-?-?-?-?-?-?-?-?- SM- CRL 3.9cm co ns with LMP 08/03/24 -?-?-?-?-?-?-?-?-?-?-?-?- 14w 6d 157 lb 126/84 Negative -?-?-?-?-?-?-?-?-?-?-?-?- Negative 163 -?-?-?-?-?-?-?-?-?-?-?-?- MH-No VB. Nausea improved. Br US confirm FHT 09/06/24 -?-?-?-?-?-?-?-?-?-?-?-?- 19w 5d 159 lb 6 oz 117/77 Nega tive -?-?-?-?-?-?-?-?-?-?-?-?- Negative 160 -?-?-?-?-?-?-?-?-?-?-?-?- GEN- ramirez discuss ion about success rate of 78%. we discussed that this does not predict baby's health after delivery it it ends up in a shoulder dystocia again however and it only predicts the probability of getting the baby out vaginally 09/30/24 -?-?-?-?-?-?-?-?-?-?-?-?- 23w 1d 162 lb 4 oz 124/82 Nega tive -?-?-?-?-?-?-?-?-?-?-?-?- Negative 145 24 -?-?-?-?-?-?-?-?-?-?-?-?- KW- no vb/lof/ct x. good fm. many questions about doing a ACOG First Trimester First Trimester: Desire for , Alcohol, Tobacco Cessation, Illicit/Recreational Drug/Substance Use, Intimate Partner Violence, Barriers to care, Unstable Housing, Communication Barriers, Environmental/Work Hazards, Anticipated Course of Care, Toxoplasmosis Precations, Use of Any medications, Sexual activity, Exercise, Dental Care, Sauna/Hot tub use, Seat Belt use, Childbirth classes/Hospital facilities, Travel, Indications for Ultrasound and Screening for Aneuploidy; Discussed Second Trimester Second Trimester: Signs and Symptoms of Labor, Selecting a care provider, Reproductive Life Planning & Contreception, Care Planning, Tobacco Cessation, Depression/Anxiety and Intimate Partner Violence ROS Const Reports system reviewed and no additional complaints, except as documented Eyes Reports system reviewed and no additional complaints, except as documented ENT Reports system reviewed and no additional complaints, except as documented Card Reports system reviewed and no additional complaints, except as documented Resp Reports system reviewed and no additional complaints, except as documented GI Reports system reviewed and no additional complaints, except as documented Reports system reviewed and no additional complaints, except as documented, Denies difficulty voiding, Denies dysuria and Denies urinary frequency Musc Reports system reviewed and no additional complaints, except as documented Skin/Breast Reports system reviewed and no additional complaints, except as documented Neuro Yes system reviewed and no additional complaints, except as documented Psych Reports system reviewed and no additional complaints, except as documented, Denies anhedonia, Denies anxiety and Denies depression Endo Reports system reviewed and no additional complaints, except as documented Estevan/Lymph Reports system reviewed and no additional complaints, except as documented Aller/Immun Reports system reviewed and no additional complaints, except as documented Exam Const General: cooperative, healthy appearing, comfortable and no acute distress Orientation: alert, awake and oriented x3 Neck Neck: normal visual inspection and full ROM Resp Effort & Inspection: normal respiratory effort, able to speak in complete sentences and symmetric chest movement GI Inspection: normal to inspection Palpation: soft Other: gravid Bimanual Exam- Vagina & Uterus: non-tender Skin General: no rashes or lesions noted Neuro General: patient alert, patient awake and patient oriented x3 Cognition: normal cognition Speech: speech normal Gait: normal gait Motor: muscle tone normal throughout Extrem General: normal to inspection and full ROM Psych Appearance: grossly normal and well kempt Mental Status: mental status grossly normal Mood: congruent mood Affect: normal affect Speech and Movement: speech and movement normal Attitude: cooperative Thought Process: normal Thought Content: normal Judgment: judgment good Results POC Urinalysis 2 Dip (Clinic) Office Urine Glucose Negative Last Edit by Adwoa Wade on 09/30/24 08:57 Office Urine Protein Negative Last Edit by Adwoa Wade on 09/30/24 08:57 Coding Level of Care Code OB Routine Diagnoses Supervision of high risk in second trimester O09.92 Trimester: second trimester 23 weeks gestation of Z3A.23 Weeks of gestation: 23 weeks History of delivery, currently O34.219 History of group B Streptococcus (GBS) infection Z86.19 PCOS (polycystic ovarian syndrome) E28.2 Lactating mother Z39.1 History of shoulder dystocia Assessment and Plan Assessment and Plan (1) Supervision of high-risk : Status: Acute Qualifiers: Trimester: second trimester Qualified Code(s): O09.92 - Supervision of high risk , unspecified, second trimester Comment: [id number]; JERZY 01/26/25; PC: Aden; : Boogie (2) : Status: Acute Qualifiers: Weeks of gestation: 23 weeks Qualified Code(s): Z3A.23 - 23 weeks gestation of Comment: NIPT low risk, nl anatomy. (3) History of delivery, currently : Status: Acute Comment: x1; Desires if smaller infant, if same size plan RLTCS (4) History of group B Streptococcus (GBS) infection: Status: Acute Comment: Last (5) PCOS (polycystic ovarian syndrome): Status: Acute Comment: NOT on Metformin (6) Lactating mother: Status: Acute Comment: Still nursing 5x/day; desires to get baby to 1 year (September) (7) History of shoulder dystocia: Status: Acute Comment: 1st ; csec w/second d/t this Orders: Orders Glucose Challenge Gest 1H 50g 09/23/24 O - Supervision of high risk , unspecified, second trimester, Z13.1 - Encounter for screening for diabetes mellitus HIV 09/23/24 - Supervision of high risk , unspecified, second trimester Syphilis Antibodies 09/23/24 - Supervision of high risk , unspecified, second trimester CBC W/Diff, Automated 09/23/24 O - Supervision of high risk , unspecified, second trimester POC Urinalysis 2 Dip (Clinic) Today Plan Details Additional Comments: Cervical cancer screening: [ ] Breast cancer screening: [ ] STD prevention and contraceptive options including their risks, benefits, and alternatives were reviewed with the patient and she chooses: [ ] Encouraged maintenance of a healthy weight and active lifestyle and handout given. Calcium/vitamin D recommendations provided. Annual exam handout including recommendations for good health guidelines and basic screening information given. Problem list up to date, see problem list details for any additional plan information. follow up in one year for annual health maintenance exam or sooner if needed. 09/30/24912 <Electronically signed by Indiana gusman CNM> Date _ Indiana Lazo CNM Cosigner Signature: Date (if applicable) CC: ~ [facility] Work Phone: Reason for referral (narrative)No reason for referral information [facility] Work Phone: Chief Complaint and Reason for Visit Chief Complaint est ob 29w NAUSEA AND VOMITING NAUSEA AND VOMITING 32 WK OB COVID IN est ob 36w 37 WK OB 38 WK OB decrease movement NST DECREASED MOVEMENT 39 WK OB 40 WK OB VAGINAL DELIVERY RULE OUT LABOR VAGINAL DELIVERY VAGINAL DELIVERY pumping questions 6wk pp / declined iud Reason for Visit Supervision of normal first COVID-19 affecting , antepartum COVID-19 affecting , antepartum Supervision of normal first Anemia COVID-19 affecting , antepartum Supervision of normal first Anemia COVID-19 affecting , antepartum Decreased movements in third trimester Supervision of normal first Anemia COVID-19 affecting , antepartum Decreased movements in third trimester Supervision of normal first Anemia COVID-19 affecting , antepartum Decreased movements in third trimester Supervision of normal first Anemia Vaginal delivery COVID-19 affecting , antepartum Shoulder dystocia during labor and delivery Supervision of normal first Chief Complaint 3 M FU pmdd E ORDER Reason for Visit PMDD (premenstrual d ysphoric disorder) Chief Complaint 3 M FU pmdd E ORDER LMP 01/01 Reason for Visit PMDD (premenstrual d ysphoric disorder) Anemia PMDD (premenstrual dysphoric disorder) Supervision of high-risk Chief Complaint 3 M FU pmdd E ORDER LMP 11 12 WK OB Reason for Visit PMDD (premenstrual d ysphoric disorder) Anemia PMDD (premenstrual dysphoric disorder) Supervision of high-risk Anemia PMDD (premenstrual dysphoric disorder) Supervision of high-risk Chief Complaint E ORDER LMP 11 12 WK OB 16 WK OB, vomiting 24/7 dehydration Reason for Visit Anemia PMDD (premenstrual dysphoric disorder) Supervision of high-risk Anemia PMDD (premenstrual dysphoric disorder) Supervision of high-risk Anemia Nausea and vomiting during PMDD (premenstrual dysphoric disorder) Supervision of high-risk Chief Complaint Admit Date ABD PAIN June 07, 2024 1:1 8pm Chief Complaint Admit Date ABD PAIN June 07, 2024 1:1 8pm spotting in early /SM May 3:07pm 10 WEEKS ,BLEEDING June 29, 2024 9:23pm Chief Complaint Admit Date ABD PAIN June 07, 2024 1:1 8pm spotting in early /SM May 3:07pm 10 WEEKS ,BLEEDING June 29, 2024 9:23pm Amb Documentation July 01, 2024 10:55a m New OB, unsure of LMP, saw ED for US July 07, 2024 2:38pm Reason for Visit Admit Date History of delivery, currently July 07, 2024 2:38pm History of group B Streptococcus (GBS) i nfection July 07, 2024 2:38pm History of shoulder dystocia July 07, 2 025 2:38pm Lactating mother July 07, 2024 2:38p m PCOS (polycystic ovarian syndrome) June 232024 2:38pm July 07, 2024 2:38p m Supervision of high-risk June 232024 2:38pm Chief Complaint Admit Date ABD PAIN June 07, 2024 1:1 8pm spotting in early /SM May 3:07pm 10 WEEKS ,BLEEDING June 29, 2024 9:23pm Amb Documentation July 01, 2024 10:55a m New OB, unsure of LMP, saw ED for US July 07, 2024 2:38pm 15wk OB August 03, 2024 8:22 am Reason for Visit Admit Date History of delivery, currently July 07, 2024 2:38pm History of group B Streptococcus (GBS) i nfection July 07, 2024 2:38pm History of shoulder dystocia July 07, 2 025 2:38pm Lactating mother July 07, 2024 2:38p m PCOS (polycystic ovarian syndrome) June 232024 2:38pm July 07, 2024 2:38p m Supervision of high-risk June 232024 2:38pm History of delivery, currently August 03, 2024 8:22am History of group B Streptococcus (GBS) i nfection August 03, 2024 8:22am History of shoulder dystocia August 03, 2024 8:22am Lactating mother August 03, 2024 8:22 am PCOS (polycystic ovarian syndrome) August 03, 2024 8:22am August 03, 2024 8:22 am Supervision of high-risk August 03, 2024 8:22am Chief Complaint Admit Date ABD PAIN June 07, 2024 1:1 8pm spotting in early /SM May 3:07pm 10 WEEKS ,BLEEDING June 29, 2024 9:23pm Amb Documentation July 01, 2024 10:55a m New OB, unsure of LMP, saw ED for US July 07, 2024 2:38pm 15wk OB August 03, 2024 8:22 am 20 wk ob September 06, 2024 10:4 2am Reason for Visit Admit Date History of delivery, currently July 07, 2024 2:38pm History of group B Streptococcus (GBS) i nfection July 07, 2024 2:38pm History of shoulder dystocia July 07, 2:38pm Lactating mother July 07, 2024 2:38p m PCOS (polycystic ovarian syndrome) June 232024 2:38pm July 07, 2024 2:38p m Supervision of high-risk June 232024 2:38pm History of delivery, currently August 03, 2024 8:22am History of group B Streptococcus (GBS) i nfection August 03, 2024 8:22am History of shoulder dystocia August 03, 2024 8:22am Lactating mother August 03, 2024 8:22 am August 03, 2024 8:22 am Supervision of high-risk August 03, 2024 8:22am History of delivery, currently September 06, 2024 10:42am History of group B Streptococcus (GBS) i nfection September 06, 2024 10:42am History of shoulder dystocia September 06, 2024 10:42am Lactating mother September 06, 2024 10:4 2am PCOS (polycystic ovarian syndrome) September 06, 2024 10:42am September 06, 2024 10:4 2am Supervision of high-risk September 06, 2024 10:42am Chief Complaint Admit Date ABD PAIN June 07, 2024 1:1 8pm spotting in early /SM May 3:07pm 10 WEEKS ,BLEEDING June 29, 2024 9:23pm Amb Documentation July 01, 2024 10:55a m New OB, unsure of LMP, saw ED for US July 07, 2024 2:38pm 15wk OB August 03, 2024 8:22 am 20 wk ob September 06, 2024 10:4 2am 23wk ob September 30, 2024 8:4 6am Reason for Visit Admit Date History of delivery, currently July 07, 2024 2:38pm History of group B Streptococcus (GBS) i nfection July 07, 2024 2:38pm History of shoulder dystocia July 07, 2 025 2:38pm Lactating mother July 07, 2024 2:38p m PCOS (polycystic ovarian syndrome) June 232024 2:38pm July 07, 2024 2:38p m Supervision of high-risk June 232024 2:38pm History of delivery, currently August 03, 2024 8:22am History of group B Streptococcus (GBS) i nfection August 03, 2024 8:22am History of shoulder dystocia August 03, 2024 8:22am Lactating mother August 03, 2024 8:22 am August 03, 2024 8:22 am Supervision of high-risk August 03, 2024 8:22am History of delivery, currently September 06, 2024 10:42am History of group B Streptococcus (GBS) i nfection September 06, 2024 10:42am History of shoulder dystocia September 06, 2024 10:42am Lactating mother September 06, 2024 10:4 2am PCOS (polycystic ovarian syndrome) September 06, 2024 10:42am September 06, 2024 10:4 2am Supervision of high-risk September 06, 2024 10:42am History of delivery, currently September 30, 2024 8:46am History of group B Streptococcus (GBS) i nfection September 30, 2024 8:46am History of shoulder dystocia September 30, 2024 8:46am Lactating mother September 30, 2024 8:4 6am PCOS (polycystic ovarian syndrome) Sepus 2024 8:46am September 30, 2024 8:4 6am Supervision of high-risk Augus t 2024 8:46am Chief Complaint Admit Date 10 WEEKS ,BLEEDING June 29, 2024 9:23pm Amb Documentation July 01, 2024 10:55a m New OB, unsure of LMP, saw ED for US July 07, 2024 2:38pm 15wk OB August 03, 2024 8:22 am 20 wk ob September 06, 2024 10:4 2am 23wk ob September 30, 2024 8:4 6am 27wk ob/glucose October 26, 2024 3:45pm Reason for Visit Admit Date History of delivery, currently July 07, 2024 2:38pm History of group B Streptococcus (GBS) i nfection July 07, 2024 2:38pm History of shoulder dystocia July 07, 2 025 2:38pm Lactating mother July 07, 2024 2:38p m PCOS (polycystic ovarian syndrome) June 232024 2:38pm July 07, 2024 2:38p m Supervision of high-risk June 232024 2:38pm History of delivery, currently August 03, 2024 8:22am History of group B Streptococcus (GBS) i nfection August 03, 2024 8:22am History of shoulder dystocia August 03, 2024 8:22am Lactating mother August 03, 2024 8:22 am August 03, 2024 8:22 am Supervision of high-risk August 03, 2024 8:22am History of delivery, currently September 06, 2024 10:42am History of group B Streptococcus (GBS) i nfection September 06, 2024 10:42am History of shoulder dystocia September 06, 2024 10:42am Lactating mother September 06, 2024 10:4 2am PCOS (polycystic ovarian syndrome) September 06, 2024 10:42am September 06, 2024 10:4 2am Supervision of high-risk September 06, 2024 10:42am History of delivery, currently September 30, 2024 8:46am History of group B Streptococcus (GBS) i nfection September 30, 2024 8:46am History of shoulder dystocia September 30, 2024 8:46am Lactating mother September 30, 2024 8:4 6am PCOS (polycystic ovarian syndrome) Augus 2024 8:46am September 30, 2024 8:4 6am Supervision of high-risk Aug t 2024 8:46am History of delivery, currently October 26, 2024 3:45pm History of group B Streptococcus (GBS) i nfection October 26, 2024 3:45pm History of shoulder dystocia October 262024 3:45pm Lactating mother October 26, 2024 3:45pm PCOS (polycystic ovarian syndrome) [facility] 2024 3:45pm October 26, 2024 3:45pm Supervision of high-risk [facility] 2024 3:45pm Family History No Family History Records Found Relationship Condition Age at Onset Recorded Date/T meenakshi father Diabetes mellitus Unknown mother Hypertension Unknown grandfather Malignant neoplasm Unknown Advance Directives No Advanced Directives Records Found Advance Directive Response Recorded Date/ Time Living Will No April 09, 022 4:25pm Power of Passenger Service Supervisor No April 09, 2021 4:25pm Advance Directive Response Recorded Date/ Time Living Will No April 09 3:25pm Power of Passenger Service Supervisor No April 09, 2021 3:25pm Advance Directive Response Recorded Date/ Time Living Will No June 07, 2024 4:28pm Do you have a Healthcare Power of Passenger Service Supervisor? No June 07, 2024 4:28pm Advance Directive Response Recorded Date/ Time Living Will No June 07, 2024 4:28pm Do you have a Healthcare Power of Passenger Service Supervisor? No June 07, 2024 4:28pm Do you have a Healthcare Power of Passenger Service Supervisor? No June 29, 2024 11:15pm Advance Directive Response Recorded Date/ Time Do you have a Healthcare Power of Passenger Service Supervisor? No June 29, 2024 11:15pm Summary Purpose Additional Source Comments Goals (unrecognized section and content) Goals may be documented in a n alternate sectionGoals may be documented in an alternate sectionGoals may be documented in an alternate sectionGoals may be documented in an alternate sectionGoals may be documented in an alternate sectionGoals may be documented in an alternate sectionGoals may be documented in an alternate sectionGoals may be documented in an alternate sectionGoals may be documented in an alternate sectionGoals may be documented in an alternate sectionGoals may be documented in an alternate sectionGoals may be documented in an alternate sectionGoals may be documented in an alternate sectionGoals may be documented in an alternate sectionGoals may be documented in an alternate section INFORMATION SOURCE (unrecogn ized section and content) DATE CREATED AUTHOR 08/22/2022 [facility] DATE CREATED AUTHOR AUTHOR'S ORGANIZ ATION 02/26/2024 [facility] DATE CREATED AUTHOR AUTHOR'S ORGANIZ ATION 08/24/2024 [facility] DATE CREATED AUTHOR AUTHOR'S ORGANIZ ATION 09/03/2024 [facility] DATE CREATED AUTHOR AUTHOR'S ORGANIZ ATION 11/12/2024 [facility] Care Teams (unrecognized sec tion and content) Team Status: Active Member Role Status Dates Dr. Kelle Oconnell MD Family Provider Active Dr. Migeul Vigil MD Primary Care Provider Active Team Status: Inactive Member Role Status Dates Dr. eKlle Oconnell MD Primary Care Provider, Referring Provider Active Dr. Cassandra Lockhart MD Attending Provider Active Team Status: Inactive Member Role Status Dates Dr. Kelle Oconnell MD Primary Care Provider Active Dr. Cassandra Lockhart MD Attending Provider, Referr ing Provider Active Team Status: Active Member Role Status Dates Dr. Miguel Vigil MD Primary Care Provider Active [place] Lazo CNM Attending Provider, Referring Pro vider Active Dr. Cassandra Lockhart MD Other Provider Active Team Status: Inactive Member Role Status Dates Dr. Miguel Vigil MD Primary Care Provider Active [place] Lazo CNM Attending Provider, Referring Pro vider Active Dr. Cassandra Lockhart MD Other Provider Active Team Status: Inactive Member Role Status Dates Dr. Kelle Oconnell MD Referring Provider Active Dr. Valorie Ramos DO Attending Provider Activ e Dr. Miguel Vigil MD Primary Care Provider Active Team Status: Inactive Member Role Status Dates Dr. Miguel Vigil MD Primary Care Provider Active Dr. Valorie Ramos DO Attending Provider, Refe rring Provider Active Team Status: Inactive Member Role Status Dates Dr. Miguel Vigil MD Primary Care Provider, Referring Provider Active [place] Lazo CNM Attending Provider Active Team Status: Inactive Member Role Status Dates Dr. Miguel Vigil MD Primary Care Provider, Referring Provider Active Brenda Morrow CNM Attending Provider Active Team Status: Inactive Member Role Status Dates Dr. Miguel Vigil MD Primary Care Provider Active Brenda Morrow CNM Attending Provider, Referring Pr ovider Active Team Status: Inactive Member Role Status Dates Dr. Miguel Vigil MD Primary Care Provider Active Start: April 26, 2024 End: April 26, 2024 John Ariza [employer]ER, YOKE PRESSER-C Attending Provider Active Start: April 26, 2024 End: April 26, 2024 John Ariza [employer]OKE PR[employer]ER, YOKE [employer]ER-C Referring Provider Active Start: April 26, 2024 End: April 26, 2024 Team Status: Active Member Role Status Dates Dr. Miguel Vigil MD Primary Care Provider Active Team Status: Inactive Member Role Status Dates Dr. Miguel Vigil MD Primary Care Provider Active Start: June 07, 2024 End: June 07, 2024 Heriberto Frazier MD Emergency Provider Active Star t: June 07, 2024 End: June 07, 2024 Team Status: Inactive Member Role Status Dates Dr. Miguel Vigil MD Primary Care Provider Active Start: June 07, 2024 End: June 07, 2024 Heriberto Frazier MD Attending Provider Active Star t: June 07, 2024 End: June 07, 2024 Heriberto Frazier MD Emergency Provider Active Star t: June 07, 2024 End: June 07, 2024 Team Status: Inactive Member Role Status Dates Dr. Miguel Vigil MD Primary Care Provider Active Start: June 22, 2024 End: June 22, 2024 Dr. Miguel Vigil MD Referring Provider Active Start: June 22, 2024 End: June 22, 2024 Dr. Cassandra Lockhart MD Attending Provider Active Start: June 22, 2024 End: June 22, 2024 Team Status: Inactive Member Role Status Dates Dr. Miguel Vigil MD Primary Care Provider Active Start: June 29, 2024 End: June 29, 2024 Dr. Wilbert Butler MD Emergency Provider Active Start: June 29, 2024 End: June 29, 2024 Team Status: Inactive Member Role Status Dates Dr. Miguel Vigil MD Primary Care Provider Active Start: June 29, 2024 End: June 29, 2024 Dr. Wilbert Butler MD Attending Provider Active Start: June 29, 2024 End: June 29, 2024 Dr. Wilbert Butler MD Emergency Provider Active Start: June 29, 2024 End: June 29, 2024 Team Status: Active Member Role Status Dates Dr. Miguel Vigil MD Primary Care Provider Active Start: July 01, 2024 Isa Rios RN Attending Provider Active St art: July 01, 2024 Team Status: Inactive Member Role Status Dates Dr. Miguel Vigil MD Primary Care Provider Active Start: July 07, 2024 End: July 07, 2024 Dr. Miguel Vigil MD Referring Provider Active Start: July 07, 2024 End: July 07, 2024 Dr. Cassandra Lockhart MD Attending Provider Active Start: July 07, 2024 End: July 07, 2024 Team Status: Active Member Role Status Dates Dr. Miguel Vigil MD Primary Care Provider Active Start: July 07, 2024 Dr. Cassandra Lockhart MD Attending Provider Active Start: July 07, 2024 Dr. Cassandra Lockhart MD Referring Provider Active Start: July 07, 2024 Team Status: Inactive Member Role Status Dates Dr. Miguel Vigil MD Primary Care Provider Active Start: July 07, 2024 End: July 07, 2024 Dr. Cassandra Lockhart MD Attending Provider Active Start: July 07, 2024 End: July 07, 2024 Dr. Cassandra Lockhart MD Referring Provider Active Start: July 07, 2024 End: July 07, 2024 Team Status: Inactive Member Role Status Dates Dr. Miguel Vigil MD Primary Care Provider Active Start: August 03, 2024 End: August 03, 2024 Dr. Miguel Vigil MD Referring Provider Active Start: August 03, 2024 End: August 03, 2024 John Ariza [employer]ER, YOKE PR[employer]ER-C Attending Provider Active Start: August 03, 2024 End: August 03, 2024 Team Status: Active Member Role/Relationship Status Dates Dr. Miguel Vigil MD Primary Care Provider Active Team Status: Inactive Member Role/Relationship Status Dates Dr. Miguel Vigil MD Primary Care Provider Active Start: June 07, 2024 End: June 07, 2024 Heriberto Frazier MD Attending Provider Active Star t: June 07, 2024 End: June 07, 2024 Heriberto Frazier MD Emergency Provider Active Star t: June 07, 2024 End: June 07, 2024 Team Status: Inactive Member Role/Relationship Status Dates Dr. Miguel Vigil MD Primary Care Provider Active Start: June 22, 2024 End: June 22, 2024 Dr. Miguel Vigil MD Referring Provider Active Start: June 22, 2024 End: June 22, 2024 Dr. Cassandra Lockhart MD Attending Provider Active Start: June 22, 2024 End: June 22, 2024 Team Status: Inactive Member Role/Relationship Status Dates Dr. Miguel Vigil MD Primary Care Provider Active Start: June 29, 2024 End: June 29, 2024 Dr. Wilbert Butler MD Attending Provider Active Start: June 29, 2024 End: June 29, 2024 Dr. Wilbert Butler MD Emergency Provider Active Start: June 29, 2024 End: June 29, 2024 Team Status: Active Member Role/Relationship Status Dates Dr. Miguel Vigil MD Primary Care Provider Active Start: July 01, 2024 Isa Rios RN Attending Provider Active St art: July 01, 2024 Team Status: Inactive Member Role/Relationship Status Dates Dr. Miguel Vigil MD Primary Care Provider Active Start: July 07, 2024 End: July 07, 2024 Dr. Miguel Vigil MD Referring Provider Active Start: July 07, 2024 End: July 07, 2024 Dr. Cassandra Lockhart MD Attending Provider Active Start: July 07, 2024 End: July 07, 2024 Team Status: Inactive Member Role/Relationship Status Dates Dr. Miguel Vigil MD Primary Care Provider Active Start: July 07, 2024 End: July 07, 2024 Dr. Cassandra Lockhart MD Attending Provider Active Start: July 07, 2024 End: July 07, 2024 Dr. Cassandra Lockhart MD Referring Provider Active Start: July 07, 2024 End: July 07, 2024 Team Status: Inactive Member Role/Relationship Status Dates Dr. Miguel Vigil MD Primary Care Provider Active Start: August 03, 2024 End: August 03, 2024 Dr. Miguel Vigil MD Referring Provider Active Start: August 03, 2024 End: August 03, 2024 John [place] [employer]OKE PRESSER, YOKE PRESSER-C Attending Provider Active Start: August 03, 2024 End: August 03, 2024 Team Status: Inactive Member Role/Relationship Status Dates Dr. Miguel Vigil MD Primary Care Provider Active Start: September 06, 2024 End: September 06, 2024 Dr. Miguel Vigil MD Referring Provider Active Start: September 06, 2024 End: September 06, 2024 Dr. Valorie Ramos DO Attending Provider Activ e Start: September 06, 2024 End: September 06, 2024 Team Status: Inactive Member Role/Relationship Status Dates Dr. Miguel Vigil MD Primary Care Provider Active Start: September 30, 2024 End: September 30, 2024 Dr. Miguel Vigil MD Referring Provider Active Start: September 30, 2024 End: September 30, 2024 Indiana Lazo CNM Attending Provider Active S tart: September 30, 2024 End: September 30, 2024 Team Status: Inactive Member Role/Relationship Status Dates Dr. Miguel Vigil MD Primary Care Provider Active Start: June 29, 2024 End: June 29, 2024 Dr. Wilbert Butler MD Attending Provider Active Start: June 29, 2024 End: June 29, 2024 Dr. Wilbert Butler MD Emergency Provider Active Start: June 29, 2024 End: June 29, 2024 Team Status: Active Member Role/Relationship Status Dates Dr. Miguel Vigil MD Primary Care Provider Active Start: July 01, 2024 Isa Rios RN Attending Provider Active St art: July 01, 2024 Team Status: Inactive Member Role/Relationship Status Dates Dr. Miguel Vigil MD Primary Care Provider Active Start: July 07, 2024 End: July 07, 2024 Dr. Miguel Vigil MD Referring Provider Active Start: July 07, 2024 End: July 07, 2024 Dr. Cassandra Lockhart MD Attending Provider Active Start: July 07, 2024 End: July 07, 2024 Team Status: Inactive Member Role/Relationship Status Dates Dr. Miguel Vigil MD Primary Care Provider Active Start: July 07, 2024 End: July 07, 2024 Dr. Cassandra Lockhart MD Attending Provider Active Start: July 07, 2024 End: July 07, 2024 Dr. Cassandra Lockhart MD Referring Provider Active Start: July 07, 2024 End: July 07, 2024 Team Status: Inactive Member Role/Relationship Status Dates Dr. Miguel Vigil MD Primary Care Provider Active Start: August 03, 2024 End: August 03, 2024 Dr. Miguel Vigil MD Referring Provider Active Start: August 03, 2024 End: August 03, 2024 John Ariza NP, [employer]KE PR[employer]ER-C Attending Provider Active Start: August 03, 2024 End: August 03, 2024 Team Status: Inactive Member Role/Relationship Status Dates Dr. Miguel Vigil MD Primary Care Provider Active Start: September 06, 2024 End: September 06, 2024 Dr. Miguel Vigil MD Referring Provider Active Start: September 06, 2024 End: September 06, 2024 Dr. Valorie Ramos DO Attending Provider Activ e Start: September 06, 2024 End: September 06, 2024 Team Status: Inactive Member Role/Relationship Status Dates Dr. Miguel Vigil MD Primary Care Provider Active Start: September 30, 2024 End: September 30, 2024 Dr. Miguel Vigil MD Referring Provider Active Start: September 30, 2024 End: September 30, 2024 Indiana Lazo CNM Attending Provider Active S tart: September 30, 2024 End: September 30, 2024 Team Status: Inactive Member Role/Relationship Status Dates Dr. Miguel Vigil MD Primary Care Provider Active Start: October 26, 2024 End: October 26, 2024 Dr. Miguel Vigil MD Referring Provider Active Start: October 26, 2024 End: October 26, 2024 Dr. Valorie Ramos DO Attending Provider Activ e Start: October 26, 2024 End: October 26, 2024 FOR RECORDS PERTAINING TO PATIENTS WHO ARE [...] BE BASED ON THE PRIMARY CLINICAL RECORDS. [facility] [employer] [facility]. provides no warranty or guarantee of the accuracy or completeness of information in this document.
== END | disposition home or self-care (01) ==
PROVIDERS: PCP Family Medicine; Visit Provider Advanced Practice Midwife
DX: O09.92 Supervision of high risk pregnancy, unspecified, second trimester (principal); Z13.1 Encounter for screening for diabetes mellitus; Z3A.00 Weeks of gestation of pregnancy not specified
CPT/HCPCS: 36415; 82950; 85025; 86703; 86780

== ENCOUNTER → 2024-12-23 | Outpatient (CLI) | payer OTHER, SELFPAY ==
--- NOTE | 2024-12-23 17:39 | US_ITS ---
PROCEDURE: [employer]
== END | disposition home or self-care (01) ==
LOC: US 17:37
PROVIDERS: PCP Family Medicine; Referring Provider Obstetrics & Gynecology; Visit Provider Obstetrics & Gynecology
DX: O09.299 Supervision of pregnancy with other poor reproductive or obstetric history, unspecified trimester (principal); Z3A.00 Weeks of gestation of pregnancy not specified
CPT/HCPCS: 76816

== ENCOUNTER → 2025-01-04 | Outpatient (CLI) | payer OTHER, SELFPAY | END | disposition home or self-care (01) | LOC: LABSPEC 16:17 | PROVIDERS: PCP Family Medicine; Visit Provider Obstetrics & Gynecology | DX: O09.93 Supervision of high risk pregnancy, unspecified, third trimester (principal); Z3A.00 Weeks of gestation of pregnancy not specified | CPT/HCPCS: 87081 ==

== ENCOUNTER 2025-01-20 07:12 | Inpatient (IN) | payer OTHER, SELFPAY ==
[2025-01-20] VITALS (17 sets, daily range): BP systolic 105–143; BP diastolic 69–98; PULSE 58–93; RESP 15–20; TEMP 36.1–37; O2SAT 98–100; BMI 32.5
--- OUTSIDE RECORDS SUMMARY | 2025-01-20 05:13 | XMS RPT_ITS | CCD ---
Author Organization [facility] Care Team Providers Care Real Time Operator Name Role Phone Dr. Kelle Oconnell Primary Care Provider Dr. Kelle Oconnell Referring Provider Dr. Valorie Ramos Attending Provider Dr. Cassandra Lockhart Attending Provider Dr. Cassadnra Lockhart Referring Provider Dr. Cassandra Lockhart Other Provider Dr. Cassandra Lockhart Admit Provider Annita PREPARATION ROOM MANAGER, PREPARATION ROOM MANAGER-Kirsten Pavon Attending Provider [place] PREPARATION ROOM MANAGER, PREPARATION ROOM MANAGER-C Tea Attending Provider LEATHA CALVIN Attending Unava ilable MIGUEL OGNZALEZ Primary Care Unavailable Dr. Kelle Oconnell Primary Care Provider Dr. Kelle Oconnell Referring Provider Dr. Cassandra Lockhart Attending Provider Dr. Valorie Ramos Attending Provider Dr. Miguel Gonzalez Primary Care Provider Dr. Miguel Gonzalez Referring Provider RICHIE Lazo Attending Provider Dr. Kelle Oconnell Referring Provider RICHIE Morrow Attending Provider Dr. Miguel Gonzalez MD Primary Care Provider [place] PREPARATION ROOM MANAGER-C, John Attending Provider Annita PREPARATION ROOM MANAGER-C, John Referring Provider Freddie HAUSER, Heriberto Emergency Provider Freddie HAUSER, Heriberto Attending Provider Musa HAUSER, Dr. West Referring Provider Chantelle HAUSER, Dr. Trujillo Attending Provider Luke HAUSER, Dr. Atkins Emergency Provider Luke HAUSER, Dr. Atkins Attending Provider Gabriel RN, Isa Attending Provider Unavailabl e Chantelle HAUSER, Dr. Trujillo Referring Provider [phone] KELLE OCONNELL Primary Care Unavailable LEONARDO BACON Attending Unavailable JOHN ARIZA S Referring Unavailable MIGUEL GONZALEZ Primary Care Unavailable Musa HAUSER, Dr. West Primary Care Provider [place] PREPARATION ROOM MANAGER-C, John Attending Provider Dr. Valorie Ramos DO Attending Provider Indiana Lazo CNM Attending Provider Dr. Miguel Gonzalez MD Primary Care Provider Dr. Miguel Gonzalez MD Referring Provider Dr. Cassandra Lockhart MD Attending Provider Dr. Miguel Gonzalez MD Primary Care Physician Dr. Miguel Gonzalez MD Referring Provider Annita PREPARATION ROOM MANAGER-C, John Attending Physician [phone] Dr. Valorie Ramos DO Attending Physician Indiana Lazo CNM Attending Physician Dr. Miguel Gonzalez MD Primary Care Physician Dr. Miguel Gonzalez MD Referring Provider [place] PREPARATION ROOM MANAGER-C, John Attending Physician [phone] Chantelle HAUSER, Dr. Trujillo Attending Physician Gonzalez, Miguel Primary Care Unavailable Cassandra Lockhart Attending Unavailable Gonzalez, Miguel Referring Unavailable Gonzalez, Miguel Referring Unavailable Annita PREPARATION ROOM MANAGER, John Attending Unavailable Gonzalez, Miguel Primary Care Unavailable Gonzalez, Miguel Primary Care Unavailable MarcanthonyCassandra Referring Unavailable MarcanthonyCassandra Attending Unavailable Gonzalez, Miguel Primary Care Unavailable MarcanthonyCassandra Attending Unavailable Gonzalez, Miguel Referring Unavailable Gonzalez, Miguel Referring Unavailable Gonzalez, Miguel Primary Care Unavailable MarcanthonyCassandra Attending Unavailable Gonzalez, Miguel Referring Unavailable Gonzalez, Miguel Primary Care Unavailable Marcantheverette, Cassandra Attending Unavailable Isa Rios Attending Unavailable Gonzalez, Miguel Primary Care Unavailable Gonzalez, Miguel Primary Care Unavailable Wilbert Butler Attending Unavailable Gonzalez, Miguel Primary Care Unavailable [place] PREPARATION ROOM MANAGER, John Referring Unavailable Annita PREPARATION ROOM MANAGER, John Attending Unavailable Gonzalez, Miguel Primary Care Unavailable MarcanthonyCassandra Referring Unavailable Marcanthony, Cassandra Attending Unavailable Gonzalez, Miguel Referring Unavailable Vande Velde, Valorie Attending Unavailabl e Gonzalez, Miguel Primary Care Unavailable Gonzalez, Miguel Primary Care Unavailable Heriberto Frazier Attending Unavailable Gonzalez, Miguel Primary Care Unavailable MarcanthCassandra gaviria Attending Unavailable MarcanthonyCassandra Admitting Unavailable Gonzaelz, Miguel Primary Care Unavailable MarcanthCassandra gaviria Attending Unavailable Gonzalez, Miguel Primary Care Unavailable Cassandra Lockhart Referring Unavailable Indiana Lazo Attending Unavailable Gonzalez, Miguel Referring Unavailable Gonzalez, Miguel Primary Care Unavailable Indiana Lazo Attending Unavailable Gonzalez, Miguel Referring Unavailable Vande Velde, Valorie Attending Unavailabl e Gonzalez, Miguel Primary Care Unavailable Gonzalez, Miguel Referring Unavailable Vande Velde, Valorie Attending Unavailabl e Gonzalez, Miguel Primary Care Unavailable Annita PREPARATION ROOM MANAGER, John Attending Unavailable Gonzalez, Miguel Primary Care Unavailable Gonzalez, Miguel Referring Unavailable Vande Velde, Valorie Attending Unavailabl e Gonzalez, Miguel Referring Unavailable Gonzalez, Miguel Primary Care Unavailable Musa HAUSER, Dr. West Primary Care Physician [phone] Dr. Miguel Gonzalez MD Referring Provider Dr. Valorie Ramos DO Attending Physician Indiana Lazo CNM Attending Physician [phone] John Cárdenas Attending Physician [phone] Chantelle HAUSER, Dr. Trujillo Attending Physician Chantelle HAUSER, Dr. Trujillo Referring Provider Medications Current Medications Medication Drug Class(es) Dates Sig (Normalized) Sig (Original) [place] (Nk) (10 sources) Start: 07-07-2024 [place] (Nk) A ctive July 06, 2024 11:00pm Start: 07-07-2024 [place] (Nk) A ctive July 07, 2024 12:00am Prenat.Vits,Gabo,Orm-Lpxq-Sio ic (6 sources) Start: 08-21-2020 take 1 tablet by mouth once daily Prenat.Vits,Gabo,Csa-Uxot-Epled Active 1 TABLET PO DAILY August 21, 2020 10:10am Start: 08-21-2020 End: 09-09-2022 take 1 tablet by mouth once daily Prenat.Vits,Gabo,Xdg-Meux-Llujh Discontin ued 1 TABLET PO DAILY August [...] 0 October 02, 2023 October 16, 2023 1:46pm delivery delivered Encounter for delivery without indication Start: 04-11-2021 End: 05-24-2021 Oxycodone-Acetaminophen (Per cocet) 5-325 mg tablet Discontinued 1 {tbl} PO EVERY 6 HOURS as needed for pain 10 7 0 April 11, 2021 May 24, 2021 1:05pm Vaginal delivery Encounter for full-term uncomplicated delivery aspirin 81 mg chewable tablet (19 sources) Platelet Aggregation Inhibitor, Nonsteroidal Anti-inflammatory Drug Start: 02-28-2021 End: 04-11-2021 take 1 tablet by mouth once daily Aspirin 81 mg tablet,chewable Discontinued 81 mg PO DAILY February 28, 2021 12:00am April 11, 2021 1:48pm Dietary Supplement (5 sources) Start: 12-18-2022 End: 03-06-2023 Dietary Supplement Discontinued CAP PO December 17, 2022 11:00pm March 06, 2023 3:09pm Start: 12-18-2022 Dietary Supple ment Active CAP PO December 17, 2022 11:00pm Dietary Supplement capsule (13 sources) Start: 12-18-2022 End: 03-06-2023 Dietary Supplement capsule Discontinued NMA PO December 17, 2022 11:00pm March 06, 2023 3:09pm Start: 12-18-2022 End: 03-06-2023 Dietary Supplement capsule D iscontinued NMA PO December 18, 2022 12:00am March 06, 2023 4:09pm Norethindrone-E.Estradiol-Ir on (19 sources) Estrogen Start: 09-15-2019 End: 06-13-2020 take 1 tablet by mouth once daily Norethindrone-E.Estradiol-Iron (Blisovi 24 Fe) 1 mg-20 mcg (24)/75 mg (4) tablet Discontinued 1 TABLET PO DAILY September 15, 2019 4:10pm June 13, 2020 1:14pm Start: 09-15-2019 End: 06-13-2020 Norethindrone-E.Estradiol-Ir on (Blisovi 24 Fe) 1 mg-20 mcg (24)/75 mg (4) tablet Discontinued 1 {tbl} PO DAILY 19 02September 14, 2019 11:00pm June 13, 2020 12:14pm Start: 09-15-2019 End: 06-13-2020 Norethindrone-E.Estradiol-Ir on (Blisovi [...] {tbl} PO daily 84 May 02, 2019 8:56am July 14, 2019 10:52am Start: 05-02-2019 End: 07-14-2019 Norgestimate-Ethinyl Estradi ol (Sprintec (28)) 0.25-35 mg-mcg tablet Discontinued 1 {tbl} PO daily 84 May 02, 2019 9:56am July 14, 2019 11:52am Start: 05-02-2019 End: 07-14-2019 Norgestimate-Ethinyl Estradi ol (Sprintec (28)) 0.25-35 mg-mcg tablet Discontinued 1 {tbl} PO daily May 02, 2019 9:56am July 14, 2019 11:52am Start: 05-02-2019 End: 07-14-2019 take 1 tablet by mouth once daily Norgestimate-Ethinyl Estradiol (Sprintec (28)) 0.25-35 mg-mcg tablet Discontinued 1 TABLET PO daily May 02, 2019 8:56am July 14, 2019 [...] 1 {tbl} PO daily 84 3 June 08, 2018 11:00pm May 02, 2019 8:57am Start: 06-09-2018 End: 05-02-2019 Norgestimate-Ethinyl Estradi ol [...] 8:57am ferrous sulfate 60 mg/ml oral solution (11 sources) Start: 06-22-2024 End: 07-01-2024 take 300 mg by mouth once daily Ferrous Sulfate 300 mg (60 mg iron)/5 mL liquid Discontinued 300 mg PO daily June 21, 2024 11:00pm July 01, 2024 9:58am FLUoxetine 20 mg oral capsule (18 sources) Serotonin Reuptake Inhibitor Start: 09-09-2022 End: 12-18-2022 take 1 capsule by mouth once daily Fluoxetine (Prozac) 20 mg capsule Discontinued 20 mg PO DAILY 30 September 08, 2022 11:00pm December 18, 2022 12:59pm ibuprofen 800 mg oral tablet (19 sources) Nonsteroidal Anti-inflammator y Drug Start: 04-11-2021 End: 05-24-2021 take 1 tablet by mouth every eight hours as needed for pain Ibuprofen 800 mg tablet Discontinued 800 mg PO Q8H as needed for pain 30 7 0 April 11, 2021 12:00am May 24, 2021 1:05pm medroxyPROGESTERone acetate 10 mg oral tablet (19 sources) Progestin Start: 07-14-2019 End: 08-15-2019 Medroxyprogesterone 10 mg tablet Discontinued 10 mg PO .COMPLEX 45 0 July 13, 2019 11:00pm August 15, 2019 2:56pm 10 mg PO tid until bleeding stops X 24 hour then bid to finish Rx; Multivit 87-Ygsd-Ualgaa 1-Dha (Pnv-Dha) 27 mg iron-1 mg -300 mg capsule (16 sources) Start: 03-06-2023 End: 10-16-2023 Multivit 01-Odrm-Udhpaw 1-Dha (Pnv-Dha) 27 mg iron-1 mg -300 mg capsule Discontinued 1 NMA PO March 06, 2023 12:00am October 16, 2023 2:01pm Start: 03-06-2023 End: 10-16-2023 Multivit 48-Onun-Vednlr 1-Dh a (Pnv-Dha) 27 mg iron-1 mg -300 mg capsule Discontinued 1 NMA PO March 06, 2023 1:00am October 16, 2023 3:01pm Start: 03-06-2023 End: 10-16-2023 Multivit 92-Agat-Nrxzdt 1-Dh a (Pnv-Dha) 27 mg iron-1 mg [...] Multivitamin With Iron (Daily Multiple Vitamins/Iron) tablet (19 sources) Start: 07-14-2019 End: 08-15-2019 take 1 tablet by mouth once daily Multivitamin With Iron (Daily Multiple Vitamins/Iron) tablet Discontinued 1 TABLET PO DAILY July 14, 2019 11:52am August 15, 2019 3:56pm Start: 07-14-2019 End: 08-15-2019 Multivitamin With Iron (Delores y Multiple Vitamins/Iron) tablet Discontinued 1 {tbl} PO DAILY July 13, 2019 11:00pm August 15, 2019 2:56pm Start: 07-14-2019 End: 08-15-2019 Multivitamin With Iron [...] NEEDED as needed for Pain 30 October 01, 2023 11:00pm November 12, 2023 9:08am Start: 04-11-2021 End: 05-24-2021 take 1 tablet by mouth twice daily as needed for pain Naproxen 500 MG tablet Discontinued 500 mg PO TWICE DAILY NEEDED as needed for Pain 30 1 April 11, 2021 12:00am May 24, 2021 1:05pm Start: 08-15-2019 End: 08-21-2020 Naproxen 500 mg tablet Disco ntinued 500 mg PO 2 to 3 times per day as needed for pain 60 2 August 14, 2019 11:00pm August 21, 2020 9:09am administer with food or milk norethindrone acetate 5 mg o ral tablet (20 sources) Start: 04-26-2024 End: 06-22-2024 Norethindrone Acetate 5 mg tablet Discontinued 5 mg PO .COMPLEX 45 0 April 26, 2024 12:00am June 22, 2024 1:55pm 5 mg PO tid until bleeding stops X 24 hr then bid to finish Rx Start: 06-13-2020 End: 08-21-2020 take 1 tablet by mouth three times daily, then take 1 tablet by mouth twice daily Norethindrone Acetate (Aygestin) 5 mg tablet Discontinued 5 mg PO .COMPLEX 45 0 July 31, 2020 11:00pm August 21, 2020 9:09am 5 mg PO tid until bleeding stops [...] and vomiting 60 0 April 03, 2023 12:00am October 16, 2023 2:01pm Nausea and vomiting during Vomiting of , unspecified Start: 02-18-2021 End: 04-11-2021 take 1 tablet by mouth four times daily as needed for nausea Ondansetron Hcl (Zofran) 4 MG tablet Discontinued 4 mg PO 4 TIMES DAILY NEEDED as needed for Nausea 30 2 February 18, 2021 12:00am April 11, 2021 1:48pm penicillin v potassium 250 mg oral tablet (19 sources) Start: 09-15-2019 End: 06-13-2020 take 1 tablet by mouth twice daily Penicillin V Potassium 250 mg tablet Discontinued 250 mg PO TWICE A DAY September 14, 2019 11:00pm June 13, 2020 12:14pm Prenat.Vits,Gabo,Min-Iro n-Folic tablet (13 sources) Start: 08-21-2020 End: 09-09-2022 Prenat.Vits,Gabo,Min-Iron -Folic tablet Discontinued 1 {tbl} PO DAILY August 20, 2020 11:00pm September 09, 2022 8:25am Start: 08-21-2020 End: 09-09-2022 Prenat.Vits,Gabo,Pem-Xuue-Nkw ic tablet Discontinued 1 {tbl} PO DAILY August 21, 2020 12:00am September 09, 2022 9:25am Start: 08-21-2020 End: 09-09-2022 Prenat.Vits,Gabo,Sck-Ihhu-Nny ic tablet Discontinued 1 {tbl} PO DAILY August 21, 2020 12:00am September 09, 2022 9:25am spironolactone 50 mg oral tablet (19 sources) Aldosterone Antagonist Start: 06-09-2018 End: 08-15-2019 take 1 tablet by mouth once daily Spironolactone (Aldactone) 50 mg tablet Discontinued 50 mg PO DAILY June 08, 2018 11:00pm August 15, 2019 2:56pm Problems Active Problems Problem Classification Problem Date Documented Date Episodic/Chronic Abdominal pain (12 sources) Abdominal pain; Translations: [Unspecified abdominal pain] 06-07-2024 Episodic Bacterial infection; unspecified site (13 sources) Bacteria present; Translations: [Streptococcus, group B, as the cause of diseases classified elsewhere] 11-12-2023 Episodic Comment on above: PCN in labor. Deficiency and other anemia (19 sources) Anemia; Translations: [Anemia, unspecified] 03-04-2021 Episodic Comment on above: add daily Fe daily Fe - pt stoppe d with bleeding this Deficiency and other anemia (11 sources) Anemia, unspecified; Translations: [Anemia, unspecified] Episodic Fetopelvic disproportion; obstruction (20 sources) Shoulder girdle dystocia; Translations: [Obstructed labor due to shoulder dystocia] Episodic Comment on above: 90 sec mild-mod kyle r brendon and magdiel, recommend 36 week growth scan and IOL at 39 with next equal or smaller EFW Menstrual disorders (19 sources) Menometrorrhagia; Translations: [Excessive and frequent menstruation [...] of ; puerperium affecting management of mother (13 sources) Deliveries by ; Translations: [Encounter for delivery without indication] 10-02-2023 Episodic Comment on above: [facility] history of s [place] dystocia 7lb 11 oz girl [place] Other complications of (19 sources) Disease caused by 2019-nCoV; Translations: [Other viral diseases complicating , unspecified trimester] 04-16-2021 Episodic Comment on above: seen in triage, IVFs given, ordered zofran. plan 81 mg asa in , growth q 4 weeks. Other complications of (19 sources) Reduced movement; Translations: [Decreased movements, third [...] Simon, Boogie ; JERZY 01/26/25; P C: Alfred & Devang; : Boogie [id number]; JERZY 01/26/25 ; PC: Koalina & Devang; : Boogie Other complications of (1 source) Nausea and vomiting; Translations: [Vomiting of , unspecified] 04-24-2023 Episodic Other complications of (14 sources) Vomiting of , unspecified; Translations: [Unspecified vomiting of , unspecified as to episode of care or not applicable] 04-24-2023 Episodic Comment on above: 1L LR with zofran 3/ Other complications of (2 sources) Supervision of high risk , unspecified, third trimester; Translations: [Supervision of high risk , unspecified, third trimester] Onset: 01-04-2025 Episodic Other complications of (1 source) Supervision of with other poor reproductive or obstetric history, unspecified trimester; Translations: [Supervision of with other poor reproductive or obstetric history, unspecified trimester] Onset: 01-04-2025 Episodic Other complications of (1 source) Supervision of high risk , unspecified, second trimester; Translations: [Supervision of high risk , unspecified, second trimester] Onset: 11-24-2024 Episodic Other endocrine disorders (20 sources) Polycystic ovary syndrome; Translations: [Polycystic ovarian syndrome] 07-01-2024 Chronic Comment on above: NOT on Metformin Other endocrine disorders (1 source) Polycystic ovarian syndrome; Translations: [Polycystic ovarian syndrome] Onset: 01-04-2025 Chronic Other female genital disorders (19 sources) Abnormal uterine bleeding; Translations: [Abnormal uterine and vaginal bleeding, unspecified] 08-28-2020 Chronic Other infections; including parasitic (20 sources) H/O: infectious disease; Translations: [Personal history of other infectious and parasitic diseases] 07-01-2024 Episodic Comment on above: Last Other infections; including parasitic (1 source) Personal history of other infectious and parasitic diseases; Translations: [Personal history of other infectious and parasitic diseases] Onset: 12-14-2024 Episodic Other and delivery including normal (20 sources) Vaginal delivery; Translations: [Encounter for full-term uncomplicated delivery] Onset: 11-16-2024 Episodic Comment on above: 90 sec shoulder [...] Polyhydramnios and other problems of amniotic cavity (19 sources) Subchorionic hematoma; Translations: [Other specified disorders of amniotic fluid and membranes, unspecified trimester, not applicable or unspecified] 09-14-2020 Episodic Comment on above: 1cm, old. fu in 2 we eks. type and screen sent, thinks she is pos Previous (1 source) Maternal care for unspecified type scar from previous delivery; Translations: [Maternal care for unspecified type scar from previous delivery] Onset: 01-04-2025 Episodic Residual codes; unclassified (1 source) 36 weeks gestation of ; Translations: [36 weeks gestation of ] Onset: 01-04-2025 Episodic Residual codes; unclassified (1 source) 33 weeks gestation of ; Translations: [33 weeks gestation of ] Onset: 12-14-2024 Episodic Residual codes; unclassified (1 source) 29 weeks gestation of ; Translations: [29 weeks gestation of ] Onset: 11-16-2024 Episodic Residual codes; unclassified (1 source) 26 weeks gestation of ; Translations: [26 weeks gestation of ] Onset: 10-26-2024 Episodic Unclassified (20 sources) History of shoulder dystocia 11-12-2023 Comment on above: growth US 36 weeks. 58% growth US 36 weeks 1st ; [facility] w/second d/t this Unclassified (7 sources) call office tomorrow to see if OB wants to see you sooner Unclassified (1 source) Other specified diseases and conditions complicating ; Translations: [Other specified diseases and conditions complicating ] Onset: 07-07-2024 Past or Other Problems Problem Classification Problem Date Documented Da te Episodic/Chronic Hemorrhage during ; abruptio placenta; placenta previa (12 sources) Threatened miscarriage in first trimester; Translations: [...] 05-10-2024 Episodic Residual codes; unclassified (1 source) 23 weeks gestation of ; Translations: [23 weeks gestation of ] Onset: 09-30-2024 Episodic Residual codes; unclassified (1 source) 11 weeks gestation of ; Translations: [11 weeks gestation of ] Onset: 07-07-2024 Episodic Results Test Name Value Interpretation Reference Range Facility Reel Man Office Visit Reporton 01-04-2025 Reel Man Office Visit Report [facility] [address], [address] [place] [address] OFFICE VISIT Date of Service: 01/04/25 MR#: [id number] Acct: [id number] Name: LEONOR CAMACHO Rep #: [id number] : 1990 Provider: Dr. 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 Chantelle Hyman Delivery Date: 04/09/21 Last Updated by: Giselle Hoffmann IOL shoulder dystocia Delivery Date: 10/02/23 Last Updated by: Valencia Hawkins Primary section due to history of shoulder dystocia. Anemia, GBS + HPI 37wk ob Details: LEONOR CAMACHO is a 34 year old who presents for routine OB visit. OB Visit JERZY Calculator Estimated Delivery Date Method Current Current Estimate 01/26/25 Ultrasound #1 36w 6d Expected Delivery Route/Plan RLTCS with SM success rate is 78% Specific Issue/Plans Covid status: [] Flu vaccine: declines Tdap vaccine: declines Rhogam: NA LARC form signed: yes Problem list reviewed and updated with the [...] -???-???-???-???-??? -???-???-???-???-??? -???-???- 180 -???-???-???-???-??? -???-???-???-???-??? -???-???- - CRL 3.9c m cons with LMP 08/03/24 [...] success rate of 78%. we discussed that thi (more content not included)... Normal [facility] - Chemistry and C hemistry - challengeOrdered By: Valorie Miller on 12-26-2024 Glucose Ql (U) Negative [facility] - UrinalysisOrder ed By: Valorie Miller on 12-26-2024 Protein Ql (U) Negative [facility] Reel Man Office Visit Reporton 12-26-2024 Reel Man Office Visit Report [facility]'[address], [facility] [address] [place] [address] OFFICE VISIT Date of Service: 12/26/24 MR#: [id number] Acct: [id number] Name: LEONOR CAMACHO Rep #: [id number] : 1990 Provider: Dr. Valorie Joseph DO Age/Sex: 34/F Location: [facility] Status: Signed Intake Vital Signs 12/05/24 08:33 12/14/24 15:53 12/26/24 15:58 Height 5 ft 2 in 5 ft 2 in 5 ft 2 in Weight: 175 lb 4 oz BMI 32.0 BP 130/87 H Intake Visit Reasons: 36w ob Chief Complaint: 36wk ob Medical Technician Assistant Required: No Is patient in pain?: No Allergies No Known Allergies Allergy (Verified 12/26/24 16:00) Medications ???Medication ???Instructions ???Recorded ???Confirmed ???Type NK 07/07/24 12/26/24 History Last Menstrual Period: 01/11/23 : No Have you fallen in the past year?: No PFSH PFSH Medical History History of shoulder dystocia PMDD (premenstrual dysphoric disorder) Anemia PCOS (polycystic ovarian syndrome) Surgical History History of H/O oral surgery Family History Father Diabetes Type 1 Mother Hypertension Grandfather Cancer bladder Social History adopted: No household members: spouse and children number of children: 2 current occupational status: employed 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 Chantelle Hyman Delivery Date: 04/09/21 Last Updated by: Giselle Hoffmann IOL shoulder dystocia Delivery Date: 08/09/24 Last Updated by: Valencia Hawkins Primary section due to history of shoulder dystocia. Anemia, GBS + HPI 36w ob Details: LEONOR CAMACHO is a 34 year old who presents for routine OB visit. OB Visit JERZY Calculator Estimated Delivery Date Method Current WG Current Estimate 01/26/25 Ultrasound #1 35w 4d Expected Delivery Route/Plan RLTCS with SM success rate is 78% Specific Issue/Plans Covid status: [] Flu vaccine: declines Tdap vaccine: declines Rhogam: NA LARC form signed: yes Problem list reviewed and updated with the [...] cussion about success rate of 78%. we d (more content not included)... Normal [facility] OB Limited With [employer] 12-23-2024 OB [facility] With [facility] Services [address] [place] [address] OB Limited With [employer] MR#: [id number] Acct: [id number] Name: LEONOR CAMACHO Rep #: [id number] : 1990 F 34 From: [place] Mortensen DO PCP: Dr. Miguel Gonzalez MD Status: REG CLI Study: OB Limited With Biometrics Date of Exam: 12/23 Exam# [id number] Ordering Dr: Cassandra Lockhart PROCEDURE: OB LIMITED WITH BIOMETRICS 12/23/2024 REASON FOR EXAM: GRWOTH, HISTORY OF SHOULDER DYSTOCIA TECHNIQUE: Procedure Code: [id number] Modality: US Procedure: OB LIMITED WITH BIOMETRICS COMPARISON: 07 June 2024. FINDINGS Number: 1 Position: cephalic Placental Position: anterior Grade 2 DIMENSIONS: Biparietal Diameter: 8.8 cm / 35 weeks and 4 days Head Circumference: 11 cm / 35 weeks and 2 days Abdominal Circumference: 33.6 cm / 37 weeks and 4 days Femur Length: 7 cm / 36 weeks and 0 days ESTIMATED WEIGHT: 3064 g ESTIMATED WEIGHT PERCENTILE (24+ weeks): 90% ESTIMATED GESTATIONAL AGE: Baseline: 35 weeks and 1 day By Ultrasound: 35 weeks and 5 days ESTIMATED DATE OF DELIVERY: Baseline: January 26, 2025. By Ultrasound: January 22, 2025. BIOPHYSICAL ASSESSMENT: Amniotic Fluid Volume: Adequate Amniotic Fluid Index: 17.1 cm (8-24 cm normal range) Cardiac Motion: 140 beats per minute (average) MATERNAL ANATOMY: Adnexa: Neither maternal ovary is successfully identified. Cervical Length (if measured): 4.9 cm US/OB Limited With Biometrics IMPRESSION: 1. Single living intrauterine gestation at 35 weeks and 1 day in the cephalic presentation. 2. heart rate of 140 bpm. 3. Anterior placenta. 4. Estimated weight of 3064 grams. 90th percentile. Reading Location: [id number] CC: Dr. Miguel Gonzalez MD; Dr. Cassandra Lockhart MD Technical Training Specialist: Signed Normal [facility] Reel Man Office Visit Reporton 12-14-2024 Reel Man Office Visit Report [facility]'s [address], [address] [place] [address] OFFICE VISIT Date of Service: 12/14/24 MR#: [id number] Acct: [id number] Name: LEONOR CAMACHO Rep #: [id number] : 1990 Provider: Dr. Cassandra stock MD Age/Sex: 34/F Location: [facility] Status: Signed Intake Vital Signs 09/30/24 08:50 12/05/24 08:33 12/14/24 15:53 Height 5 ft 2 in 5 ft 2 in 5 ft 2 in Weight: 173 lb 4 oz BMI 31.6 BP 120/78 Intake Visit Reasons: 34wk ob Medical Technician Assistant Required: No Is patient in pain?: No Allergies No Known Allergies Allergy (Verified 12/14/24 15:54) Medications ???Medication ???Instructions ???Recorded ???Confirmed ???Type NK 07/07/24 12/14/24 History Last Menstrual Period: 01/11/23 Zika: Zika virus screening: Negative : Yes Have you fallen in the past year?: No PFSH PFSH Medical History History of shoulder dystocia PMDD (premenstrual dysphoric disorder) Anemia PCOS (polycystic ovarian syndrome) Surgical History History of H/O oral surgery Family History Father Diabetes Type 1 Mother Hypertension Grandfather Cancer bladder Social History adopted: No household members: spouse and children number of children: 2 current occupational status: employed 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 Date Name GA/Weeks Outcome Route Bth Weight Gen Labor Lgth Anesthesia Del [place]at[place] Provider FOB 04/09/21 Alfred 39 live - full term 7lbs 9 ounces Female epidural [facility] Chantelle Hyman 10/02/23 Devang 39 live - full term 7lbs 10oz Female spinal [facility] Dr. Chantelle Hyman Delivery Date: 04/09/21 Last Updated by: Giselle Hoffmann IOL shoulder dystocia Delivery Date: 10/02/23 Last Updated by: Valencia Hawkins Primary section due to history of shoulder dystocia. Anemia, GBS + HPI 34wk ob Details: LEONOR CAMACHO is a 34 year old who presents for routine OB visit. OB Visit JERZY Calculator Estimated Delivery Date Method Current WG Current Estimate 01/26/25 Ultrasound #1 33w 6d Expected Delivery Route/Plan RLTCS with SM success rate is 78% Specific Issue/Plans Covid status: [] Flu vaccine: declines Tdap vaccine: declines Rhogam: NA LARC form signed: yes Problem list reviewed and updated with the [...] -???-???- JV- long dis cussion about success ra (more content not included)... Normal [facility] - Chemistry and C hemistry - challengeOrdered By: John Annita on 12-05-2024 Glucose Ql (U) Negative [facility] - UrinalysisOrder ed By: John Ariza on 12-05-2024 Protein Ql (U) Negative [facility] Reel Man Office Visit Reporton 12-05-2024 Reel Man Office Visit Report [facility]'s [address], [address] [place] [address] OFFICE VISIT Date of Service: 12/05/24 MR#: [id number] Acct: [id number] Name: LEONOR CAMACHO Rep #: [id number] : 1990 Provider: JOSETTE franco Age/Sex: 34/F [place] [facility] Status: Signed Intake Vital Signs 09/30/24 08:50 11/16/24 15:54 12/05/24 08:33 Height 5 ft 2 in 5 ft 2 in 5 ft 2 in Weight: 169 lb 5 oz BMI 30.9 BP 121/80 H Intake Visit Reasons: 32wk ob Medical Technician Assistant Required: No Is patient in pain?: No Allergies No Known Allergies Allergy (Verified 12/05/24 08:33) Medications ???Medication ???Instructions ???Recorded ???Confirmed ???Type NK 07/07/24 12/05/24 History Last Menstrual Period: 01/11/23 Zika: Zika virus screening: Negative : Yes PFSH PFSH Medical History History of shoulder dystocia PMDD (premenstrual dysphoric disorder) Anemia PCOS (polycystic ovarian syndrome) Surgical History History of H/O oral surgery Family History Father Diabetes Type 1 Mother Hypertension Grandfather Cancer bladder Social History adopted: No household members: spouse and children number of children: 2 current occupational status: employed 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 Chantelle Hyman Delivery Date: 04/09/21 Last Updated by: Giselle HAYES shoulder dystocia Delivery Date: 10/02/23 Last Updated by: Valencia Hawkins Primary section due to history of shoulder dystocia. Anemia, GBS + HPI 32wk ob Details: LEONOR CAMACHO is a 34 year old who presents for routine OB visit. OB Visit JERZY Calculator Estimated Delivery Date Method Current Current Estimate 01/26/25 Ultrasound #1 32w 4d Expected Delivery Route/Plan RLTCS with SM success rate is 78% Specific Issue/Plans Covid status: [] Flu vaccine: declines Tdap vaccine: declines Rhogam: NA LARC form signed: yes Problem list reviewed and updated with the [...] -???-???-???-???-??? -???-???-???-???-??? -???-???- 180 -???-???-???-???-??? -???-???-???-???-??? -???-???- - CRL 3.9c m cons with LMP 08/03/24 [...] about success rate of 78%. we discussed t (more content not included)... Normal [facility] Absolute lymphocyte countOrd ered By: Indiana Lazo on 11-16-2024 Lymphocytes Auto (Unsp spec) [#/Vol] 2.16 10*3/uL 0.83-4.51 [facility] Absolute neutrophil countOrd ered By: Indiana Clifton on 11-16-2024 Neutrophils (Bld) [#/Vol] 10.4 10*3/uL High 2.0-7.7 [facility] Automated lymphocyte count a s percentage of total leukocytesOrdered By: Indiana Clifton on 11-16-2024 Lymphocytes/100 WBC Auto (Unsp spec) 16.2 % Low 19-41 [facility] Basophil percentageOrdered B y: Indiana Lazo on 11-16-2024 Basophils/100 WBC (Bld) 0.2 % 0-1 [facility] CBC W/Diff, Automatedon 10-25 Absolute Lymph 2.16 X10 3/uL Normal 0.83-4.51 [facility] Comment on above: Performed By: #### L 501.0250, L3890.6006, L509.8002, L100.0100 #### [facility] [address] [place], [address] Absolute Neut 10.4 X10 3/uL High 2.0-7.7 [facility] Comment on above: Performed By: #### L 501.0250, L3890.6006, L509.8002, L100.0100 #### [facility] [address] [place], [address] Basophils/100 WBC (Bld) 0.2 % Normal 0-1 [facility] Comment on above: Performed By: #### L 501.0250, L3890.6006, L509.8002, L100.0100 #### [facility] [address] [place], [address] Eosinophils/100 WBC (Bld) 0.4 % Normal 0-5 [facility] Comment on above: Performed By: #### L 501.0250, L3890.6006, L509.8002, L100.0100 #### [facility] [address] [place], [address] Erythrocyte distribution width (RBC) [Ratio] 12.6 % Normal 11.6-14.6 [facility] Comment on above: Performed By: #### L 501.0250, L3890.6006, L509.8002, L100.0100 #### [facility] [address] [place], [address] Hematocrit (Bld) [Volume fraction] 32.9 % Low 37-47 [facility] Comment on above: Performed By: #### L 501.0250, L3890.6006, L509.8002, L100.0100 #### [facility] [address] [place], [address] Hemoglobin (Bld) [Mass/Vol] 10.9 g/dL Low 12.0-15.0 [facility] Comment on above: Performed By: #### L 501.0250, L3890.6006, L509.8002, L100.0100 #### [facility] [address] [place], [address] IG% 0.700 Normal 0.0-0.9 [facility] Comment on above: Result Comment: IG% - Immature Granulocytes (promyelocytes, myelocytes and metamyelocytes) > 1% indicates that a LEFT SHIFT is Present. Performed By: #### L 501.0250, L3890.6006, L509.8002, L100.0100 #### [facility] [address] [place], [address] Lymphocytes/100 WBC (Bld) 16.2 % Low 19-41 [facility] Comment on above: Performed By: #### L 501.0250, L3890.6006, L509.8002, L100.0100 #### [facility] [address] [place], [address] MCH (RBC) [Entitic mass] 27.3 pg Normal 27.0-32.0 [facility] Comment on above: Performed By: #### L 501.0250, L3890.6006, L509.8002, L100.0100 #### [facility] [address] [place], [address] MCHC (RBC) [Mass/Vol] 33.1 g/dL Normal 32-36 [facility] Comment on above: Performed By: #### L 501.0250, L3890.6006, L509.8002, L100.0100 #### [facility] [address] [place], [address] MCV (RBC) [Entitic vol] 82.5 fL Normal 81-99 [facility] Comment on above: Performed By: #### L 501.0250, L3890.6006, L509.8002, L100.0100 #### [facility] [address] [place], [address] Monocytes/100 WBC (Bld) 4.5 % Normal 0-10 [facility] Comment on above: Performed By: #### L 501.0250, L3890.6006, L509.8002, L100.0100 #### [facility] [address] [place], [address] Neutrophils/100 WBC (Bld) 78.0 % High 47-70 [facility] Comment on above: Performed By: #### L 501.0250, L3890.6006, L509.8002, L100.0100 #### [facility] [address] [place], [address] Nucleated RBC (Bld) [#/Vol] 0 10*3/uL Normal 0-5 [facility] Comment on above: Performed By: #### L 501.0250, L3890.6006, L509.8002, L100.0100 #### [facility] [address] [place], [address] Platelet mean volume (Bld) [Entitic vol] 12.8 fL High 6.2-12.0 [facility] Comment on above: Performed By: #### L 501.0250, L3890.6006, L509.8002, L100.0100 #### [facility] [address] [place], [address] Platelets (Bld) [#/Vol] 183 10*3/uL Normal 150-450 [facility] Comment on above: Performed By: #### L 501.0250, L3890.6006, L509.8002, L100.0100 #### [facility] [address] [place], [address] RBC (Bld) [#/Vol] 3.99 10*6/uL Low 4.2-5.4 [facility] Comment on above: Performed By: #### L 501.0250, L3890.6006, L509.8002, L100.0100 #### [facility] [address] [place], [address] RDW SD 38.2 fl Normal 35.1-43.9 [facility] Comment on above: Performed By: #### L 501.0250, L3890.6006, L509.8002, L100.0100 #### [facility] [address] [place], [address] WBC (Bld) [#/Vol] 13.3 10*3/uL High 4.4-11.0 [facility] Comment on above: Performed By: #### L 501.0250, L3890.6006, L509.8002, L100.0100 #### [facility] [address] [place], [address] Eosinophil percentageOrdered By: Indiana Lazo on 11-16-2024 Eosinophils/100 WBC (Bld) 0.4 % 0-5 [facility] Erythrocyte distribution wid th ratioOrdered By: Indiana Lazo on 11-16-2024 Erythrocyte distribution width (RBC) [Ratio] 12.6 % 11.6-14.6 [facility] Erythrocyte distribution wid th standard deviationOrdered By: Indiana Lazo on 11-16-2024 Erythrocyte distribution width (RBC) [Ratio] 38.2 fl 35.1-43.9 [facility] Glucose Challenge Gest 1H 50 jose carlos 11-16-2024 GLU GEST 50g 1H 120 mg/dL Normal 70-140 [facility] Comment on above: Performed By: #### L 501.0250, L3890.6006, L509.8002, L100.0100 #### [facility] [address] [place], [address] Glucose measurement at 2 hernesto rs post-dose gestational glucose tolerance testOrdered By: Indiana Lazo on 11-16-2024 Glucose [Mass/Vol] 120 mg/dL 70-140 [facility] HIVon 11-16-2024 HIV Non-Reactive Normal Nonreactive [facility] Comment on above: Result Comment: Non- Reactive Reactive Repeatedly reactive samples must be confirmed according to CDC recommended confirmatory algorithms. The subresults for either HIVAG or AHIV can be used as an aid in the selection of the confirmation algorithm for reactive samples. Send out specimens with Reactive results to [facility] for confirmation. Order the HIV antibody detection and differentiation: lc#[id number] Performed By: #### L 501.0250, L3890.6006, L509.8002, L100.0100 #### [facility] [place], [address] Hematocrit Auto (Bld) [Volum e fraction]Ordered By: Indiana Lazo on 11-16-2024 Hematocrit (Bld) [Volume fraction] 32.9 % Low 37-47 [facility] Hemoglobin measurementOrdere d By: Indiana Lazo on 11-16-2024 Hemoglobin (Bld) [Mass/Vol] 10.9 g/dL Low 12.0-15.0 [facility] Immature granulocytes/100 WB C Auto (Bld)Ordered By: Indiana Lazo on 11-16-2024 Immature granulocytes/100 WBC (Bld) 0.700 % 0.0-0.9 [facility] Comment on above: IG% - Immature Granu locytes (promyelocytes, myelocytes and metamyelocytes) > 1% indicates that a LEFT SHIFT is Present. MCV (mean corpuscular volume ) determinationOrdered By: Indiana Lazo on 11-16-2024 MCV (RBC) [Entitic vol] 82.5 fL 81-99 [facility] Mean corpuscular hemoglobin (MCH) determinationOrdered By: Indiana Lazo on 11-16-2024 MCH (RBC) [Entitic mass] 27.3 pg 27.0-32.0 [facility] Mean corpuscular hemoglobin concentration (MCHC) determinationOrdered By: Indiana Lazo on 11-16-2024 MCHC (RBC) [Mass/Vol] 33.1 g/dL 32-36 [facility] Mean platelet volume determi nationOrdered By: Inidana Lazo on 11-16-2024 Platelet mean volume (Bld) [Entitic vol] 12.8 fL High 6.2-12.0 [facility] Monocyte percentageOrdered B y: Indiana Lazo on 11-16-2024 Monocytes/100 WBC (Bld) 4.5 % 0-10 [facility] Neutrophil percentageOrdered By: Indiana Lazo on 11-16-2024 Neutrophils/100 WBC (Bld) 78.0 % High 47-70 [facility] No Panel InformationOrdered By: Indiana Lazo on 11-16-2024 HIV (1&2) Antibody Non-Reactive Nonreactive [facility] Comment on above: Non-ReactiveReactive Repeatedly reactive samples must be confirmed according to CDC recommended confirmatory algorithms. The subresults for either HIVAG or AHIV can be used as an aid in the selection of the confirmation algorithm for reactive samples.Send out specimens with Reactive results to [facility] for confirmation.Order the HIV antibody detection and differentiation: #[id number] Nucleated red blood cell per centageOrdered By: Indiana Lazo on 11-16-2024 Nucleated RBC/100 WBC (Bld) [Ratio] 0 % 0-5 [facility] Reel Man Office Visit Reporton 11-16-2024 Reel Man Office Visit Report [facility] [address], [address] [place] [address] OFFICE VISIT Date of Service: 11/16/24 MR#: [id number] Acct: [id number] Name: LEONOR CAMACHO Rep #: [id number] : 1990 Provider: Dr. Valorie Joseph DO Age/Sex: 33/F [place] [facility] Status: Signed Intake Vital Signs 09/30/24 08:50 10/26/24 15:57 11/16/24 15:51 11/16/24 15:54 Height 5 ft 2 in 5 ft 2 in 5 ft 2 in 5 ft 2 in Weight: 168 lb 1 oz BMI 30.7 BP 123/72 H Intake Visit Reasons: 30wk ob Chief Complaint: 30 Week OB Medical Technician Assistant Required: No Is patient in pain?: No Allergies No Known Allergies Allergy (Verified 11/16/24 15:51) Medications ???Medication ???Instructions ???Recorded ???Confirmed ???Type NK 07/07/24 11/16/24 History Last Menstrual Period: 01/11/23 Zika: Zika virus screening: Negative : No PFSH PFS Medical History History of shoulder dystocia PMDD (premenstrual dysphoric disorder) Anemia PCOS (polycystic ovarian syndrome) Surgical History History of H/O oral surgery Family History Father Diabetes Type 1 Mother Hypertension Grandfather Cancer bladder Social History adopted: No household members: spouse and children number of children: 2 current occupational status: employed 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 Chantelle Hyman Delivery Date: 04/09/21 Last Updated by: Giselle HAYES shoulder dystocia Delivery Date: 10/02/23 Last Updated by: Valencia Hawkins Primary section due to history of shoulder dystocia. Anemia, GBS + HPI 30wk ob Details: LEONOR CAMACHO is a 33 year old who presents for routine OB visit. OB Visit JERZY Calculator Estimated Delivery Date Method Current WG Current Estimate 01/26/25 Ultrasound #1 29w 6d Expected Delivery Route/Plan RLTCS with SM [...] 160 -???-???-???-???-??? -???-???-???-???-??? -???-???- JV- long dis cu (more content not included)... Normal [facility] Platelet countOrdered By: Farhad Lazo on 11-16-2024 Platelets (Bld) [#/Vol] 183 10*3/uL 150-450 [facility] RBC Auto (Bld) [#/Vol]Ordere d By: Indiana Lazo on 11-16-2024 RBC (Bld) [#/Vol] 3.99 10*6/uL Low 4.2-5.4 [facility] Syphilis Antibodieson 2024 Syphilis Abs Non-Reactive Normal Nonreactive [facility] Comment on above: Performed By: #### L 501.0250, L3890.6006, L509.8002, L100.0100 #### [facility] [address] [place], [address] White blood cell (WBC) count Ordered By: Indiana Lazo on 11-16-2024 WBC (Bld) [#/Vol] 13.3 10*3/uL High 4.4-11.0 [facility] - Chemistry and C hemistry - challengeOrdered By: Valorie Miller on 10-26-2024 Glucose Ql (U) Negative [facility] - UrinalysisOrder ed By: Valorie Miller on 10-26-2024 Protein Ql (U) Negative [facility] Reel Man Office Visit Reporton 10-26-2024 Reel Man Office Visit Report [facility], [address] [place] [address] OFFICE VISIT Date of Service: 10/26/24 MR#: [id number] Acct: [id number] Name: LEONOR CAMACHO Rep #: [id number] : 1990 Provider: Dr. 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 Date Name GA/Weeks Outcome Route Bth Weight Gen Labor Lgth Anesthesia Del Locatn Provider FOB 04/09/21 Alfred 39 live - full term 7lbs 9 ounces Female epidural [facility] Chantelle Hyman 10/02/23 Devang 39 live - full term 7lbs 10oz Female spinal [facility] Dr. Chantelle Hyman Delivery Date: 04/09/21 [...] long dis (more content not included)... Normal [facility] - Chemistry and C hemistry - challengeOrdered By: Indiana Lazo on 09-30-2024 Glucose Ql (U) Negative [facility] - UrinalysisOrder ed By: Indiana Lazo on 09-30-2024 Protein Ql (U) Negative [facility] Reel Man Office Visit Reporton 09-30-2024 Reel Man Office Visit Report [facility]'s [address], [address] [place] [address] OFFICE VISIT Date of Service: 09/30/24 MR#: [id number] Acct: [id number] Name: LEONOR CAMACHO Rep #: [id number] : 1990 Provider: RICHIE Valderrama ams Age/Sex: 33/F Location[place] [facility] Status: Signed Intake Vital Signs 08/03/24 08:31 09/06/24 10:56 09/30/24 08:50 Height 5 ft 2 in 5 ft 2 in 5 ft 2 in Weight: 157 lb 159 lb 6 oz 162 lb 4 oz BMI 28.7 29.1 29.7 BP 126/84 H 117/77 124/82 H Intake Visit Reasons: 23wk ob Chief Complaint: 23wk OB Medical Technician Assistant Required: No Is patient in pain?: No [...] 2 current occupational status: employed 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 Date Name GA/Weeks Outcome Route Bth Weight Infant Gen Labor Lgth Anesthesia Del Locatn Provider ELIEL 04/09/21 Alfred 39 live - full term 7lbs 9 ounces Female epidural [facility] Chantelle Hyman 10/02/23 Devang 39 live - full term 7lbs 10oz Female spinal [facility] Dr. Chantelle Hyman Delivery Date: 04/09/21 [...] that th (more content not included)... Normal [facility] Laboratory - Chemistry and C hemistry - challengeOrdered By: Valorie Miller on 09-06-2024 Glucose Ql (U) Negative [facility] - UrinalysisOrder ed By: Valorie Miller on 09-06-2024 Protein Ql (U) Negative [facility] Reel Man Office Visit Reporton 09-06-2024 Reel Man Office Visit Report [facility]'s [address], [address] [place] [address] OFFICE VISIT Date of Service: 09/06/24 MR#: [id number] Acct: [id number] Name: LEONOR CAMACHO Rep #: [id number] : 1990 Provider: Dr. 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 Chantelle Hyman Delivery Date: 04/09/21 Last Updated by: Giselle Hoffmann IOL shoulder dystocia Delivery Date: 10/02/23 Last Updated by: Valencia Hawkins Primary section due to history of shoulder dystocia. Anemia, GBS + HPI 20 wk ob Details: LEONOR ACMACHO is a 33 year old who presents [...] after del (more content not included)... Normal [facility] - Chemistry and C hemistry - challengeOrdered By: John Ariza on 08-03-2024 Glucose Ql (U) Negative [facility] Laboratory - UrinalysisOrder ed By: John Ariza on 08-03-2024 Protein Ql (U) Negative [facility] Reel Man Office Visit Reporton 08-03-2024 Reel Man Office Visit Report [facility] [address], [address] [place] [address] OFFICE VISIT Date of Service: 08/03/24 MR#: [id number] Acct: [id number] Name: LEONOR CAMACHO Rep #: [id number] : 1990 Provider: JOSETTE franco Age/Sex: 33/F Location: [facility] Status: Signed Intake Vital Signs 06/29/24 21:24 07/07/24 14:50 08/03/24 08:31 Height 5 ft 2 in 5 ft 2 in 5 ft 2 in Weight: 157 lb BMI 28.7 BP 126/84 H Intake Visit Reasons: 15wk OB Chief Complaint: 15 Week OB Medical Technician Assistant Required: No Is patient in pain?: No [...] 2 current occupational status: employed 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 Chantelle Hyman Delivery Date: 04/09/21 [...] 14w 6d Expected Delivery Route/Plan RLTCS with SM Specific Issue/Plans Covid status: [] Flu vaccine: [...] Toxoplasmosis P (more content not included)... Normal [facility] PAP IG HPV APTIMA 16/18,45on 07-12-2024 ADEQ Comment Normal . [facility] Comment on above: Order Comment: Marily hernandez Comment: [id number] Comment: No. of containers..01 ThinPrep Vial Result Comment: Sati sfactory for evaluation. Endocervical and/or squamous metaplastic cells (endocervical component) are present. Performed By: #### M 100.2200, L7000.1800, L7400.0280 ####[facility] [address] [place], [place], [id number] COMM . Normal . [facility] Comment on above: Order Comment: Marily hernandez Comment: [id number] Comment: No. of containers..01 ThinPrep Vial Performed By: #### M 100.2200, L7000.1800, L7400.0280 ####[facility] [address] [place], [place], [id number] COMMENT Comment Normal . [facility] Comment on above: Order Comment: Marily hernandez Comment: [id number] Comment: No. of containers..01 ThinPrep Vial Result Comment: This liquid based ThinPrep(R) pap test was screened with the use of an image guided system. Performed By: #### M 100.2200, L7000.1800, L7400.0280 ####[facility] [address] [place], [address] DIAG Comment Normal . [facility] Comment on above: Order Comment: Speci men Comment: [id number] Comment: No. of containers..01 ThinPrep Vial Result Comment: NEGA TIVE FOR INTRAEPITHELIAL LESION OR MALIGNANCY. Performed By: #### M 100.2200, L7000.1800, L7400.0280 ####[facility] [address] [place], [address] HPV APTIMA, HR Negative Normal Negative [facility] Comment on above: Order Comment: Speci men Comment: [id number] Comment: No. of containers..01 ThinPrep Vial Result Comment: This nucleic acid amplification test detects fourteen high- risk HPV types (16,18,31,33,35,39,45,51,52,56,58,59,66,68) without differentiation. Performed By: #### M 100.2200, L7000.1800, L7400.0280 ####[facility] [address] [place], [address] HPV Antoinette Rfx Comment Normal . [facility] Comment on above: Order Comment: Speci men Comment: [id number] Comment: No. of containers..01 ThinPrep Vial Result Comment: Katelint stephan not met, HPV Genotype not performed. Performed at: - [address] [id number] Software Project Manager: Noelle Sorto MD, Phone: [phone] Performed at: = - [facility] [id number] Software Project Manager: Noelle Sorto MD, Phone: [phone] Performed By: #### M 100.2200, L7000.1800, L7400.0280 ####[facility] [address] [place], [address] PAPSMR Comment Normal . [facility] Comment on above: Order Comment: Speci men Comment: [id number] Comment: No. of containers..01 ThinPrep Vial Result Comment: The Pap smear is a screening test designed to aid in the detection of premalignant and malignant conditions of the uterine cervix. It is not a diagnostic procedure and should not be used as the sole means of detecting cervical cancer. Both false-positive and false-negative reports do occur. Performed By: #### M 100.2200, L7000.1800, L7400.0280 ####[facility] [address] [place], [address] PERFORM Comment Normal . [facility] Comment on above: Order Comment: Speci men Comment: [id number] Comment: No. of containers..01 ThinPrep Vial Result Comment: Ludivina Cedillo, Clarification Operator (ASCP) Performed By: #### M 100.2200, L7000.1800, L7400.0280 ####[facility] [address] [place], [address] Chlamydia/GC JOVITA aptimaon CHLAMY,NUC ACID Negative Normal Negative [facility] Comment on above: Performed By: #### M 100.2200, L7000.1800, L7400.0280 ####[facility] [address] [place], [address] GC BY NUC ACID Negative Normal Negative [facility] Comment on above: Result Comment: Perf ormed at: =G - [facility] [address] [place] [id number] Software Project Manager: Noelle Sorto MD, Phone: [phone] Performed By: #### M 100.2200, L7000.1800, L7400.0280 ####[facility] [address] [place], [address] Urine Cultureon 07-08-2024 URC Culture exhibits no growth. Normal [facility] Comment on above: Performed By: #### M 100.2200, L7000.1800, L7400.0280 ####[facility] [address] [place], [address] Absolute lymphocyte countOrd ered By: Cassandra Chantelle on 07-07-2024 Lymphocytes Auto (Unsp spec) [#/Vol] 1.95 10*3/uL 0.83-4.51 [facility] Absolute neutrophil countOrd ered By: Cassandra Lockhart on 07-07-2024 Neutrophils (Bld) [#/Vol] 7.0 10*3/uL 2.0-7.7 [facility] Automated lymphocyte count a s percentage of total leukocytesOrdered By: Cassandra Lockhart on 07-07-2024 Lymphocytes/100 WBC Auto (Unsp spec) 20.5 % 19-41 [facility] Basophil percentageOrdered B y: Cassandra Chantelle on 07-07-2024 Basophils/100 WBC (Bld) 0.2 % 0-1 [facility] CBC W/Diff, Automatedon 06-23 Absolute Lymph 1.95 X10 3/uL Normal 0.83-4.51 [facility] Comment on above: Performed By: #### L 509.8002, L3890.6006, L100.0100, L3890.6301, L509.4006, L501.9985, L3890.6102, BTS, L900.0098 ####[facility] [address] [place], [address] Absolute Neut 7.0 X10 3/uL Normal 2.0-7.7 [facility] Comment on above: Performed By: #### L 509.8002, L3890.6006, L100.0100, L3890.6301, L509.4006, L501.9985, L3890.6102, BTS, L900.0098 ####[facility] [address] [place], [address] Basophils/100 WBC (Bld) 0.2 % Normal 0-1 [facility] Comment on above: Performed By: #### L 509.8002, L3890.6006, L100.0100, L3890.6301, L509.4006, L501.9985, L3890.6102, BTS, L900.0098 ####[facility] [address] [place], [address] Eosinophils/100 WBC (Bld) 0.4 % Normal 0-5 [facility] Comment on above: Performed By: #### L 509.8002, L3890.6006, L100.0100, L3890.6301, L509.4006, L501.9985, L3890.6102, BTS, L900.0098 ####[facility] [address] [place], [address] Erythrocyte distribution width (RBC) [Ratio] 13.5 % Normal 11.6-14.6 [facility] Comment on above: Performed By: #### L 509.8002, L3890.6006, L100.0100, L3890.6301, L509.4006, L501.9985, L3890.6102, BTS, L900.0098 ####[facility] [address] [place], [address] Hematocrit (Bld) [Volume fraction] 38.7 % Normal 37-47 [facility] Comment on above: Performed By: #### L 509.8002, L3890.6006, L100.0100, L3890.6301, L509.4006, L501.9985, L3890.6102, BTS, L900.0098 ####[facility] [address] [place], [address] Hemoglobin (Bld) [Mass/Vol] 13.0 g/dL Normal 12.0-15.0 [facility] Comment on above: Performed By: #### L 509.8002, L3890.6006, L100.0100, L3890.6301, L509.4006, L501.9985, L3890.6102, BTS, L900.0098 ####[facility] [address] [place], [address] IG% 0.300 Normal 0.0-0.9 [facility] Comment on above: Result Comment: IG% - Immature Granulocytes (promyelocytes, myelocytes and metamyelocytes) > 1% indicates that a LEFT SHIFT is Present. Performed By: #### L 509.8002, L3890.6006, L100.0100, L3890.6301, L509.4006, L501.9985, L3890.6102, BTS, L900.0098 ####[facility] [address] [place], [address] Lymphocytes/100 WBC (Bld) 20.5 % Normal 19-41 [facility] Comment on above: Performed By: #### L 509.8002, L3890.6006, L100.0100, L3890.6301, L509.4006, L501.9985, L3890.6102, BTS, L900.0098 ####[facility] [address] [place], [address] MCH (RBC) [Entitic mass] 28.6 pg Normal 27.0-32.0 [facility] Comment on above: Performed By: #### L 509.8002, L3890.6006, L100.0100, L3890.6301, L509.4006, L501.9985, L3890.6102, BTS, L900.0098 ####[facility] [address] [place], [address] MCHC (RBC) [Mass/Vol] 33.6 g/dL Normal 32-36 [facility] Comment on above: Performed By: #### L 509.8002, L3890.6006, L100.0100, L3890.6301, L509.4006, L501.9985, L3890.6102, BTS, L900.0098 ####[facility] [address] [place], [address] MCV (RBC) [Entitic vol] 85.2 fL Normal 81-99 [facility] Comment on above: Performed By: #### L 509.8002, L3890.6006, L100.0100, L3890.6301, L509.4006, L501.9985, L3890.6102, BTS, L900.0098 ####[facility] [address] [place], [address] Monocytes/100 WBC (Bld) 4.7 % Normal 0-10 [facility] Comment on above: Performed By: #### L 509.8002, L3890.6006, L100.0100, L3890.6301, L509.4006, L501.9985, L3890.6102, BTS, L900.0098 ####[facility] [address] [place], [address] Neutrophils/100 WBC (Bld) 73.9 % High 47-70 [facility] Comment on above: Performed By: #### L 509.8002, L3890.6006, L100.0100, L3890.6301, L509.4006, L501.9985, L3890.6102, BTS, L900.0098 ####[facility] [address] [place], [address] Nucleated RBC (Bld) [#/Vol] 0 10*3/uL Normal 0-5 [facility] Comment on above: Performed By: #### L 509.8002, L3890.6006, L100.0100, L3890.6301, L509.4006, L501.9985, L3890.6102, BTS, L900.0098 ####[facility] [address] [place], [address] Platelet mean volume (Bld) [Entitic vol] 12.2 fL High 6.2-12.0 [facility] Comment on above: Performed By: #### L 509.8002, L3890.6006, L100.0100, L3890.6301, L509.4006, L501.9985, L3890.6102, BTS, L900.0098 ####[facility] [address] [place], [address] Platelets (Bld) [#/Vol] 194 10*3/uL Normal 150-450 [facility] Comment on above: Performed By: #### L 509.8002, L3890.6006, L100.0100, L3890.6301, L509.4006, L501.9985, L3890.6102, BTS, L900.0098 ####[facility] [address] [facility] [place], [address] RBC (Bld) [#/Vol] 4.54 10*6/uL Normal 4.2-5.4 [facility] Comment on above: Performed By: #### L 509.8002, L3890.6006, L100.0100, L3890.6301, L509.4006, L501.9985, L3890.6102, BTS, L900.0098 ####[facility] [address] [place], [address] RDW SD 42.0 fl Normal 35.1-43.9 [facility] Comment on above: Performed By: #### L 509.8002, L3890.6006, L100.0100, L3890.6301, L509.4006, L501.9985, L3890.6102, BTS, L900.0098 ####[facility] [address] [place], [place], [address] WBC (Bld) [#/Vol] 9.5 10*3/uL Normal 4.4-11.0 [facility] Comment on above: Performed By: #### L 509.8002, L3890.6006, L100.0100, L3890.6301, L509.4006, L501.9985, L3890.6102, BTS, L900.0098 ####[facility] [address] [place], [place], [address] Cervical or vaginal specimen microscopic examination by liquid based cytology (reportOrdered By: Cassandra Lockhart on 07-07-2024 Cytology report Cyto stain.thin prep Doc (Cvx/Vag) Comment . [facility] Comment on above: Criteria not met, HP V Genotype not performed.Performed at: [facility] [address] [id number] Director: Noelle Sorto MD, Phone: [phone] at: =[facility] [address] [id number] Director: Noelle Sorto MD, Phone: [phone] Cervical or vagninal specime n microscopic examination by cytology stain (reported asOrdered By: Cassandra Lockhart on 07-07-2024 Cytology report Cyto stain Doc (Cvx/Vag) Comment . [facility] Comment on above: The Pap smear [...] rRNA JOVITA+probe Ql (Unsp spec) Negative Negative [facility] Detection in cervical specim en of any of human papilloma virus (HPV) 16, 18, 31, 33,Ordered By: Cassandra Lockhart on 07-07-2024 HPV 16+18+31+33+35+39+45+51+ 52+56+58+59+66+68 DNA Probe+sig amp Ql (Cvx) Negative Negative [facility] Comment on above: This nucleic acid am plification test detects fourteen high-risk HPV types (16,18,31,33,35,39,45,51,52,56,58,59,66,68)without differentiation. Eosinophil percentageOrdered By: Cassandra Lockhart on 07-07-2024 Eosinophils/100 WBC (Bld) 0.4 % 0-5 [facility] Erythrocyte distribution wid th ratioOrdered By: Cassandra Lockhart on 07-07-2024 Erythrocyte distribution width (RBC) [Ratio] 13.5 % 11.6-14.6 [facility] Erythrocyte distribution wid th standard deviationOrdered By: Cassandra Lockhart on 07-07-2024 Erythrocyte distribution width (RBC) [Ratio] 42.0 fl 35.1-43.9 [facility] HIVon 07-07-2024 HIV Non-Reactive Normal Nonreactive [facility] Comment on above: Result Comment: Non- Reactive Reactive Repeatedly reactive samples must be confirmed according to CDC recommended confirmatory algorithms. The subresults for either HIVAG or AHIV can be used as an aid in the selection of the confirmation algorithm for reactive samples. Send out specimens with Reactive results to [facility] for confirmation. Order the HIV antibody detection and differentiation: lc#[id number] Performed By: #### L 509.8002, L3890.6006, L100.0100, L3890.6301, L509.4006, L501.9985, L3890.6102, BTS, L900.0098 ####[facility] [address] [place], [address] Hematocrit Auto (Bld) [Volum e fraction]Ordered By: Cassandra Lockhart on 07-07-2024 Hematocrit (Bld) [Volume fraction] 38.7 % 37-47 [facility] Hemoglobin A1con 07-07-2024 HbA1c (Bld) [Mass fraction] 5.1 % Normal <=5.6 [facility] Comment on above: Result Comment: Norm al < 5.7 % Prediabetic 5.7 - 6.4 % Diabetic >or= 6.5 % Please note range changes. Performed By: #### L 509.8002, L3890.6006, L100.0100, L3890.6301, L509.4006, L501.9985, L3890.6102, BTS, L900.0098 ####[facility] [address] [place], [address] Hemoglobin A1c percentageOrd ered By: Cassandra Lockhart on 07-07-2024 HbA1c (Bld) [Mass fraction] 5.1 % <5.7 [facility] Comment on above: Normal < 5.7 % Predi abetic 5.7 - 6.4 % Diabetic >or= 6.5 % Please note range changes. Hemoglobin measurementOrdere d By: Cassandra Lockhart on 07-07-2024 Hemoglobin (Bld) [Mass/Vol] 13.0 g/dL 12.0-15.0 [facility] Hepatitis C Antibodyon 07-07 Hepatitis C Ab Non-Reactive Normal Nonreactive [facility] Comment on above: Result Comment: Reac tive: Presumptive evidence of antibodies to HCV. Follow CDC recommendations for supplemental testing. Non-Reactive: Antibodies to HCV were not detected; does not exclude the possibility of exposure to HCV Reactive Results are presumptive evidence of antibodies to HCV. Follow CDC recommendations for supplemental testing. Order confirmation testing: HCV Quant by PCR testing - HCVPCR #[id number] Non Reactive: < 0.8 Equivocal: >/= 0.8 to < 1.0 Reactive: >/= 1.0 The CDC requires that a reactive/equivocal HCV antibody result be sent out for confirmation. HCV Quant by PCR testing. Performed By: #### L 509.8002, L3890.6006, L100.0100, L3890.6301, L509.4006, L501.9985, L3890.6102, BTS, L900.0098 ####[facility] [address] [place], [place], [address] Immature granulocytes/100 WB C Auto (Bld)Ordered By: Cassandra Lockhart on 07-07-2024 Immature granulocytes/100 WBC (Bld) 0.300 % 0.0-0.9 [facility] Comment on above: IG% - Immature Granu locytes (promyelocytes, myelocytes and metamyelocytes) > 1% indicates that a LEFT SHIFT is Present. L3890.6102on 07-07-2024 HEP B Surf Ag Non-Reactive Normal Nonreactive [facility] Comment on above: Result Comment: Reac tive: Presumptive evidence of HBV. Repeatedly reactive samples must be confirmed using a neutralization test (Ele[employer]ys HBsAg Confirmatory Test) Non-Reactive: HBsAg not detected; does not exclude the possibility of exposure to HBV Performed By: #### L 509.8002, L3890.6006, L100.0100, L3890.6301, L509.4006, L501.9985, L3890.6102, BTS, L900.0098 ####[facility] [address] [facility] [place], [place], [address] L509.4006on 07-07-2024 Rubella IgG REAC Normal Nonreactive [facility] Comment on above: Result Comment: Anti body Result: Interpretation Non-Reactive: Non-Immune Reactive: Immune The following results were obtained with the [employer] Rubella IgG assay. Results from assays of other manufacturers cannot be used interchangeably. Performed By: #### L 509.8002, L3890.6006, L100.0100, L3890.6301, L509.4006, L501.9985, L3890.6102, BTS, L900.0098 ####[facility] [address] [place], [place], [id number] Laboratory - CytologyOrdered By: Cassandra Lockhart on 07-07-2024 Clarification Operator Cyto stain Nom (Cvx/Vag) [ID] Comment . [facility] Comment on above: Teresa Cedillo Cytol ogjatin (ASCP) Laboratory - Microbiology an d Antimicrobial susceptibilityOrdered By: Cassandra Lockhart on 07-07-2024 HBV surface Ag Ql (S) Non-Reactive Nonreactive [facility] Comment on above: Reactive: Presumptiv e evidence of HBV. Repeatedly reactive samples must be confirmed using a neutralization test (ElecYuanfen~Flow™s HBsAg Confirmatory Test)Non-Reactive: HBsAg not detected; does not exclude the possibility of exposure to HBV Laboratory - Miscellaneous t estsOrdered By: Cassandra Lockhart on 07-07-2024 Service comment (Unsp spec) [Interp] . . [facility] MCV (mean corpuscular volume ) determinationOrdered By: Cassandra Lockhart on 07-07-2024 MCV (RBC) [Entitic vol] 85.2 fL 81-99 [facility] Mean corpuscular hemoglobin (MCH) determinationOrdered By: Cassandra Lockhart on 07-07-2024 MCH (RBC) [Entitic mass] 28.6 pg 27.0-32.0 [facility] Mean corpuscular hemoglobin concentration (MCHC) determinationOrdered By: Cassandra Lockhart on 07-07-2024 MCHC (RBC) [Mass/Vol] 33.6 g/dL 32-36 [facility] Mean platelet volume determi nationOrdered By: Cassandra Lockhart on 07-07-2024 Platelet mean volume (Bld) [Entitic vol] 12.2 fL High 6.2-12.0 [facility] Monocyte percentageOrdered B y: Cassandra Lockhart on 07-07-2024 Monocytes/100 WBC (Bld) 4.7 % 0-10 [facility] NATERAon 07-07-2024 NATURA SEE SCANNED REPORT Normal [facility] Comment on above: Order Comment: Comme nts: NIPT w/gender Performed By: #### L 509.8002, L3890.6006, L100.0100, L3890.6301, L509.4006, L501.9985, L3890.6102, BTS, L900.0098 ####[facility] [address] [place], [place], [id number] Neisseria gonorrhoeae nuclei c acid detection by amplified probe techniqueOrdered By: Cassandra Lockhart on 07-07-2024 N. gonorrhoeae DNA JOVITA+probe Ql (Unsp spec) Negative Negative [facility] Comment on above: Performed at: [address] [place] [id number] Director: Noelle Sorto MD, Phone: [phone] Neutrophil percentageOrdered By: Cassandra Lockhart on 07-07-2024 Neutrophils/100 WBC (Bld) 73.9 % High 47-70 [facility] No Panel InformationOrdered By: Cassandra Lockhart on 07-07-2024 Pap Smear Specimen Adequacy Comment . [facility] Comment on above: Satisfactory for chris luation. Endocervical and/or squamous metaplasticcells (endocervical component) are present. HIV (1&2) Antibody Non-Reactive Nonreactive [facility] Comment on above: Non-ReactiveReactive Repeatedly reactive samples must be confirmed according to CDC recommended confirmatory algorithms. The subresults for either HIVAG or AHIV can be used as an aid in the selection of the confirmation algorithm for reactive samples.Send out specimens with Reactive results to [facility] for confirmation.Order the HIV antibody detection and differentiation: #[id number] Nucleated red blood cell per centageOrdered By: Cassandra Lockhart on 07-07-2024 Nucleated RBC/100 WBC (Bld) [Ratio] 0 % 0-5 [facility] Reel Man Office Visit Reporton 07-07-2024 Reel Man Office Visit Report [facility] [address], [address] [place] [address] OFFICE VISIT Date of Service: 07/07/24 MR#: [id number] Acct: [id number] Name: LEONOR CAMACHO Rep #: [id number] : 1990 Provider: Dr. 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 Chantelle Hyman Delivery Date: 04/09/21 [...] Recurrent Pregna (more content not included)... Normal [facility] Platelet countOrdered By: Karen Lockhart on 07-07-2024 Platelets (Bld) [#/Vol] 194 10*3/uL 150-450 [facility] RBC Auto (Bld) [#/Vol]Ordere d By: Cassandra Lockhart on 07-07-2024 RBC (Bld) [#/Vol] 4.54 10*6/uL 4.2-5.4 [facility] Syphilis Antibodieson 2024 Syphilis Abs Non-Reactive Normal Nonreactive [facility] Comment on above: Performed By: #### L 509.8002, L3890.6006, L100.0100, L3890.6301, L509.4006, L501.9985, L3890.6102, BTS, L900.0098 ####[facility] [address] [place], [place], [id number] Type AND Screenon 07-07-2024 Ab SCREEN GEL Negative Normal [facility] Comment on above: Order Comment: PN Performed By: #### L 509.8002, L3890.6006, L100.0100, L3890.6301, L509.4006, L501.9985, L3890.6102, BTS, L900.0098 ####[facility] [address] [place], [place], [id number] Urine cultureOrdered By: Rich Lockhart on 07-07-2024 Bacteria identified Cx Nom (U) Culture exhibits no growth. [facility] White blood cell (WBC) count Ordered By: Cassandra Lockhart on 07-07-2024 WBC (Bld) [#/Vol] 9.5 10*3/uL 4.4-11.0 [facility] Absolute lymphocyte countOrd ered By: Wilbertlucero Butler on 06-29-2024 Lymphocytes Auto (Unsp spec) [#/Vol] 3.20 10*3/uL 0.83-4.51 [facility] Absolute neutrophil countOrd ered By: Wilbertlucero Butler on 06-29-2024 Neutrophils (Bld) [#/Vol] 7.3 10*3/uL 2.0-7.7 [facility] Automated lymphocyte count a s percentage of total leukocytesOrdered By: Wilbert Butler on 06-29-2024 Lymphocytes/100 WBC Auto (Unsp spec) 28.3 % 19-41 [facility] Basophil percentageOrdered B y: Wilbert Butler on 06-29-2024 Basophils/100 WBC (Bld) 0.4 % 0-1 [facility] CBC W/Diff, Automatedon Absolute Lymph 3.20 X10 3/uL Normal 0.83-4.51 [facility] Comment on above: Performed By: #### L 100.0100 ####[facility] [address] [place], [address] Absolute Neut 7.3 X10 3/uL Normal 2.0-7.7 [facility] Comment on above: Performed By: #### L 100.0100 ####[facility] [address] [place], [address] Basophils/100 WBC (Bld) 0.4 % Normal 0-1 [facility] Comment on above: Performed By: #### L 100.0100 ####[facility] [address] [place], [address] Eosinophils/100 WBC (Bld) 0.6 % Normal 0-5 [facility] Comment on above: Performed By: #### L 100.0100 ####[facility] [address] [place], [address] Erythrocyte distribution width (RBC) [Ratio] 14.5 % Normal 11.6-14.6 [facility] Comment on above: Performed By: #### L 100.0100 ####[facility] [address] [place], [address] Hematocrit (Bld) [Volume fraction] 36.4 % Low 37-47 [facility] Comment on above: Performed By: #### L 100.0100 ####[facility] [address] [place], [address] Hemoglobin (Bld) [Mass/Vol] 12.4 g/dL Normal 12.0-15.0 [facility] Comment on above: Performed By: #### L 100.0100 ####[facility] [address] [place], [address] IG% 0.400 Normal 0.0-0.9 [facility] Comment on above: Result Comment: IG% - Immature Granulocytes (promyelocytes, myelocytes and metamyelocytes) > 1% indicates that a LEFT SHIFT is Present. Performed By: #### L 100.0100 ####[facility] [address] [place], [address] Lymphocytes/100 WBC (Bld) 28.3 % Normal 19-41 [facility] Comment on above: Performed By: #### L 100.0100 ####[facility] [address] [place], [address] MCH (RBC) [Entitic mass] 28.8 pg Normal 27.0-32.0 [facility] Comment on above: Performed By: #### L 100.0100 ####[facility] [address] [place], [address] MCHC (RBC) [Mass/Vol] 34.1 g/dL Normal 32-36 [facility] Comment on above: Performed By: #### L 100.0100 ####[facility] [address] [place], [address] MCV (RBC) [Entitic vol] 84.7 fL Normal 81-99 [facility] Comment on above: Performed By: #### L 100.0100 ####[facility] [address] [place], [address] Monocytes/100 WBC (Bld) 5.9 % Normal 0-10 [facility] Comment on above: Performed By: #### L 100.0100 ####[facility] [address] [place], [address] Neutrophils/100 WBC (Bld) 64.4 % Normal 47-70 [facility] Comment on above: Performed By: #### L 100.0100 ####[facility] [address] [place], [address] Nucleated RBC (Bld) [#/Vol] 0 10*3/uL Normal 0-5 [facility] Comment on above: Performed By: #### L 100.0100 ####[facility] [address] [place], [address] Platelet mean volume (Bld) [Entitic vol] 13.3 fL High 6.2-12.0 [facility] Comment on above: Performed By: #### L 100.0100 ####[facility] [address] [place], [address] Platelets (Bld) [#/Vol] 191 10*3/uL Normal 150-450 [facility] Comment on above: Performed By: #### L 100.0100 ####[facility] [address] [place], [address] RBC (Bld) [#/Vol] 4.30 10*6/uL Normal 4.2-5.4 [facility] Comment on above: Performed By: #### L 100.0100 ####[facility] [address] [place], [address] RDW SD 43.1 fl Normal 35.1-43.9 [facility] Comment on above: Performed By: #### L 100.0100 ####[facility] [address] [place], [address] WBC (Bld) [#/Vol] 11.3 10*3/uL High 4.4-11.0 [facility] Comment on above: Performed By: #### L 100.0100 ####[facility] [address] [place], [address] Emergency Department Summary on 06-29-2024 Emergency Department Summary [facility] Medical Records Department [address] [place] [address] Emergency Department Summary 06/29/24 MR#: [id number] Acct: [id number] Name: LEONOR CAMACHO Rep #: [id number] : 1990 33 From: Wilbert Butler MD PCP: Dr. Miguel Gonzalez MD Status:DEP ER Location: ED HPI HPI [...] she was advised to come be evaluated. 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 Normal [facility] Eosinophil percentageOrdered By: Wilbert Butler on 06-29-2024 Eosinophils/100 WBC (Bld) 0.6 % 0-5 [facility] Erythrocyte distribution wid th ratioOrdered By: Wilbert Butler on 06-29-2024 Erythrocyte distribution width (RBC) [Ratio] 14.5 % 11.6-14.6 [facility] Erythrocyte distribution wid th standard deviationOrdered By: Wilbert Butler on 06-29-2024 Erythrocyte distribution width (RBC) [Ratio] 43.1 fl 35.1-43.9 [facility] Hematocrit Auto (Bld) [Volum e fraction]Ordered By: Wilbert Butler on 06-29-2024 Hematocrit (Bld) [Volume fraction] 36.4 % Low 37-47 [facility] Hemoglobin measurementOrdere d By: Wilbert Butler on 06-29-2024 Hemoglobin (Bld) [Mass/Vol] 12.4 g/dL 12.0-15.0 [facility] Immature granulocytes/100 WB C Auto (Bld)Ordered By: Wilbert Butler on 06-29-2024 Immature granulocytes/100 WBC (Bld) 0.400 % 0.0-0.9 [facility] Comment on above: IG% - Immature Granu locytes (promyelocytes, myelocytes and metamyelocytes) > 1% indicates that a LEFT SHIFT is Present. MCV (mean corpuscular volume ) determinationOrdered By: Wilbert Butler on 06-29-2024 MCV (RBC) [Entitic vol] 84.7 fL 81-99 [facility] Mean corpuscular hemoglobin (MCH) determinationOrdered By: Wilbert Butler on 06-29-2024 MCH (RBC) [Entitic mass] 28.8 pg 27.0-32.0 [facility] Mean corpuscular hemoglobin concentration (MCHC) determinationOrdered By: Wilbert Butler on 06-29-2024 MCHC (RBC) [Mass/Vol] 34.1 g/dL 32-36 [facility] Mean platelet volume determi nationOrdered By: Wilbert Butler on 06-29-2024 Platelet mean volume (Bld) [Entitic vol] 13.3 fL High 6.2-12.0 [facility] Monocyte percentageOrdered B y: Wilbert Butler on 06-29-2024 Monocytes/100 WBC (Bld) 5.9 % 0-10 [facility] Neutrophil percentageOrdered By: Wilbert Butler on 06-29-2024 Neutrophils/100 WBC (Bld) 64.4 % 47-70 [facility] Nucleated red blood cell per centageOrdered By: Wilbert Butler on 06-29-2024 Nucleated RBC/100 WBC (Bld) [Ratio] 0 % 0-5 [facility] Platelet countOrdered By: Jag Butler on 06-29-2024 Platelets (Bld) [#/Vol] 191 10*3/uL 150-450 [facility] RBC Auto (Bld) [#/Vol]Ordere d By: Wilbert Butler on 06-29-2024 RBC (Bld) [#/Vol] 4.30 10*6/uL 4.2-5.4 [facility] White blood cell (WBC) count Ordered By: Wilbert Butler on 06-29-2024 WBC (Bld) [#/Vol] 11.3 10*3/uL High 4.4-11.0 [facility] Absolute lymphocyte countOrd ered By: ED PROVIDER on 06-07-2024 Lymphocytes Auto (Unsp spec) [#/Vol] 1.59 10*3/uL 0.83-4.51 [facility] Absolute neutrophil countOrd ered By: ED PROVIDER on 06-07-2024 Neutrophils (Bld) [#/Vol] 9.5 10*3/uL High 2.0-7.7 [facility] Anion gap in Serum or Plasma Ordered By: ED PROVIDER on 06-07-2024 Anion gap [Moles/Vol] 11 mmol/L 5-15 [facility] Automated lymphocyte count a s percentage of total leukocytesOrdered By: ED PROVIDER on 06-07-2024 Lymphocytes/100 WBC Auto (Unsp spec) 13.3 % Low 19-41 [facility] BUN/creatinine ratioOrdered By: ED PROVIDER on 06-07-2024 Urea nitrogen/Creatinine [Mass ratio] 10.0 mg/mg 10-20 [facility] Basophil percentageOrdered B y: ED PROVIDER on 06-07-2024 Basophils/100 WBC (Bld) 0.3 % 0-1 [facility] Beta HCG ( test) Ql Ordered By: ED PROVIDER on 06-07-2024 Serum Test, Qualitative Negative [facility] Comment on above: CRITICAL VALUE MORENO D TO VNII RN (ER)06/07/24 3655 Ki Garcia.RESULTS READ BACK BY SAME. Bilirubin Test strip Ql (U)O rdered By: Heriberto Frazier on 06-07-2024 Bilirubin Ql (U) Negative Negative [facility] Bilirubin, totalOrdered By: ED PROVIDER on 06-07-2024 Bilirubin [Mass/Vol] 0.19 mg/dL Normal 0.00-1.30 [facility] Comment on above: Performed By: #### L 700.6800, L500.4050, L100.0100, L501.2450 ####[facility] [address] [place], [address] CBC W/Diff, Automatedon 04- PLT EST ADEQUATE Normal ADEQ [facility] Comment on above: Performed By: #### L 700.6800, L500.4050, L100.0100, L501.2450 ####[facility] [address] [place], [address] Carbon dioxide, total [Moles /volume] in Central venous bloodOrdered By: ED PROVIDER on 06-07-2024 CO2 [Moles/Vol] 25.2 mmol/L Normal 21.0-32.0 [facility] Comment on above: Performed By: #### L 700.6800, L500.4050, L100.0100, L501.2450 ####[facility] [address] [place], [address] Chloride assayOrdered By: ED PROVIDER on 06-07-2024 Chloride [Moles/Vol] 103 mmol/L Normal 98-108 [facility] Comment on above: Performed By: #### L 700.6800, L500.4050, L100.0100, L501.2450 ####[facility] [address] [place], [address] Comprehensive Metabolic Prof ilon 06-07-2024 ALK PHOS 115 U/L High 35-104 [facility] Comment on above: Performed By: #### L 700.6800, L500.4050, L100.0100, L501.2450 ####[facility] [address] [place], [address] BUN/CRE 10.0 RATIO Normal 10-20 [facility] Comment on above: Performed By: #### L 700.6800, L500.4050, L100.0100, L501.2450 ####[facility] [address] [place], [address] ECRCL 90.52 ml/min Normal 50-250 [facility] Comment on above: Performed By: #### L 700.6800, L500.4050, L100.0100, L501.2450 ####[facility] [address] [place], [address] GAP 11 Normal 5-15 [facility] Comment on above: Performed By: #### L 700.6800, L500.4050, L100.0100, L501.2450 ####[facility] [address] [place], [address] T PROT 7.7 g/dL Normal 5.9-8.4 [facility] Comment on above: Performed By: #### L 700.6800, L500.4050, L100.0100, L501.2450 ####[facility] [address] [place], [address] Comprehensive Metabolic Prof ilOrdered By: ED PROVIDER on 06-07-2024 AST [Catalytic activity/Vol] 17 U/L Normal <=31 [facility] Comment on above: Performed By: #### L 700.6800, L500.4050, L100.0100, L501.2450 ####[facility] [address] [place], [address] Emergency Department Summary on 06-07-2024 Emergency Department Summary [facility] Medical Records Department [address] [place] [address] Emergency Department Summary 06/07/24 MR#: [id number] Acct: [id number] Name: LEONOR CAMACHO Rep #: [id number] : 1990 33 From: Heriberto Frazier MD PCP: Dr. Miguel Gonzalez MD Status:REG ER Location: ED HPI History of Present Illness Chief Complaint: Abd Pain Narrative Narrative: 33-year-old female, G3, P2 presents at the direction of her SENIOR SOFTWARE ENGINEER's at [place] for evaluation for possible ectopic . She [...] tried to make an appointment with her SENIOR SOFTWARE ENGINEER but they states that she needs to be ruled out for an ectopic given that she has been having a few weeks of right pelvic pain that is intermittent. 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 Normal [facility] Eosinophil percentageOrdered By: ED PROVIDER on 06-07-2024 Eosinophils/100 WBC (Bld) 0.2 % 0-5 [facility] Epithelial cells.squamous LM Ql (Urine sed)Ordered By: Heriberto Frazier on 06-07-2024 Epithelial cells.squamous LM.HPF (Urine sed) [#/Area] 0 /[HPF] 5-10 [facility] Erythrocyte distribution wid th (RBC) [Ratio]Ordered By: ED PROVIDER on 06-07-2024 Erythrocyte distribution width (RBC) [Entitic vol] 41.8 fL 35.1-43.9 [facility] Erythrocyte distribution wid th ratioOrdered By: ED PROVIDER on 06-07-2024 Erythrocyte distribution width (RBC) [Ratio] 13.5 % 11.6-14.6 [facility] Erythrocyte distribution wid th standard deviationOrdered By: ED PROVIDER on 06-07-2024 Erythrocyte distribution width (RBC) [Ratio] 41.8 fl 35.1-43.9 [facility] Estimation of creatinine precious aranceOrdered By: ED PROVIDER on 06-07-2024 Estimated Creatinine Clearance Calc 90.52 ml/min 50-250 [facility] GFR/1.73 sq M.predicted melia g non-blacks MDRD (S/P/Bld) [Vol rate/Area]Ordered By: ED PROVIDER on 06-07-2024 Estimated GFR (MDRD) Non-Af Amer 95 >60 [facility] Comment on above: mL/min/1.73m2 CKD-EP I Creatinine Equation (2020) Glomerular filtration rate ( GFR) estimation/1.73 sq m using serum, plasma, or whole bOrdered By: ED PROVIDER on 06-07-2024 GFR/1.73 sq M.predicted among non-blacks MDRD (S/P/Bld) [Vol rate/Area] 95 mL/min/{1.73_m2} Normal >60 [facility] Comment on above: mL/min/1.73m2 CKD-EP I Creatinine Equation (2020) Result Comment: mL/m in/1.73m2 CKD-EPI Creatinine Equation (2020) Performed By: #### L 700.6800, L500.4050, L100.0100, L501.2450 ####[facility] [address] [place], [place], [id number] Glucose Ql (U)Ordered By: Lee Frazier on 06-07-2024 Urine Glucose (UA) Normal mg/dl Normal [facility] HCG ( test) QlOrder ed By: Isidro Moran on 06-07-2024 Human Chorionic Gonadotropin, Quant 38035 mIU/mL High <9 [facility] Comment on above: Gestational Age0.2-1 Week: 5-50 mIU/mL1-2 Weeks: 50-500 mIU/mL2-3 Weeks: 100-5000 mIU/mL3-4 Weeks: 500-10,000 mIU/mL4-5 Weeks:1000-50,000 mIU/mL5-6 Weeks: 10,000-100,000 mIU/mL6-8 Weeks: 15,000-200,000 mIU/mL2-3 Months:10,000-100,000 mIU/mL Hematocrit Auto (Bld) [Volum e fraction]Ordered By: ED PROVIDER on 06-07-2024 Hematocrit (Bld) [Volume fraction] 37.9 % 37-47 [facility] Hemoglobin measurementOrdere d By: ED PROVIDER on 06-07-2024 Hemoglobin (Bld) [Mass/Vol] 12.6 g/dL 12.0-15.0 [facility] Immature granulocytes/100 WB C Auto (Bld)Ordered By: ED PROVIDER on 06-07-2024 Immature granulocytes/100 WBC (Bld) 0.500 % 0.0-0.9 [facility] Comment on above: IG% - Immature Granu locytes (promyelocytes, myelocytes and metamyelocytes) > 1% indicates that a LEFT SHIFT is Present. Ketones Test strip Ql (U)Ord ered By: Heriberto Frazier on 06-07-2024 Ketones Ql (U) Negative Negative [facility] Lipase measurementOrdered By : ED PROVIDER on 06-07-2024 Lipase [Catalytic activity/Vol] 37 U/L Normal 13-75 [facility] Comment on above: Please note:LIPASE r [...] - 75 U/L Performed By: #### L 700.6800, L500.4050, L100.0100, L501.2450 ####[facility] [address] [place], [address] Lymphocytes Auto (Unsp spec) [#/Vol]Ordered By: ED PROVIDER on 06-07-2024 Lymphocytes (Bld) [#/Vol] 1.59 10*3/uL 0.83-4.51 [facility] Lymphocytes/100 WBC Auto (Un sp spec)Ordered By: ED PROVIDER on 06-07-2024 Lymphocytes/100 WBC (Bld) 13.3 % Low 19-41 [facility] MCV (mean corpuscular volume ) determinationOrdered By: ED PROVIDER on 06-07-2024 MCV (RBC) [Entitic vol] 84.6 fL 81-99 [facility] Mean corpuscular hemoglobin (MCH) determinationOrdered By: ED PROVIDER on 06-07-2024 MCH (RBC) [Entitic mass] 28.1 pg 27.0-32.0 [facility] Mean corpuscular hemoglobin concentration (MCHC) determinationOrdered By: ED PROVIDER on 06-07-2024 MCHC (RBC) [Mass/Vol] 33.2 g/dL 32-36 [facility] Mean platelet volume determi nationOrdered By: ED PROVIDER on 06-07-2024 Platelet mean volume (Bld) [Entitic vol] 12.1 fL High 6.2-12.0 [facility] Microscopic analysis of urin e for red blood cells (RBC)Ordered By: Heriberto Frazier on 06-07-2024 Microscopic analysis of urine for red blood cells (RBC) 0-5 SEEN /hpf 0-5 [facility] Urine RBC 0-5 SEEN /hpf 0-5 [facility] Monocyte percentageOrdered B y: ED PROVIDER on 06-07-2024 Monocytes/100 WBC (Bld) 6.3 % 0-10 [facility] Mucus LM Ql (Urine sed)Order ed By: Heriberto Frazier on 06-07-2024 Mucus Ql (Urine sed) 0 SEEN /hpf [facility] Neutrophil percentageOrdered By: ED PROVIDER on 06-07-2024 Neutrophils/100 WBC (Bld) 79.4 % High 47-70 [facility] Nitrite Test strip Ql (U)Ord ered By: Heriberto Frazier on 06-07-2024 Nitrite Ql (U) Negative Negative [facility] Nucleated red blood cell per centageOrdered By: ED PROVIDER on 06-07-2024 Nucleated RBC/100 WBC (Bld) [Ratio] 0 % 0-5 [facility] Platelet countOrdered By: ED PROVIDER on 06-07-2024 Platelets (Bld) [#/Vol] 198 10*3/uL 150-450 [facility] Platelet estimateOrdered By: ED PROVIDER on 06-07-2024 Platelets LM Ql (Bld) ADEQUATE ADEQ [facility] Platelets LM Ql (Bld)Ordered By: ED PROVIDER on 06-07-2024 Platelet Estimate ADEQUATE [facility] Potassium measurement (mass/ volume)Ordered By: ED PROVIDER on 06-07-2024 Potassium [Moles/Vol] 4.0 mmol/L Normal 3.3-5.1 [facility] Comment on above: Performed By: #### L 700.6800, L500.4050, L100.0100, L501.2450 ####[facility] [address] [place], [address] Potassium (Unsp spec) [Mass/Vol] 4.0 mmol/L 3.3-5.1 [facility] ,Serum,hCG Quali.on 06-07-2024 HCG, SERUM QUAL Positive Normal [facility] Comment on above: Result Comment: CRIT ICAL VALUE CALLED TO VINI RN (ER) 06/07/24 1535 Ki Garcia. RESULTS READ BACK BY SAME. Performed By: #### L 700.6800, L500.4050, L100.0100, L501.2450 ####[facility] [address] [place], [address] Protein Test strip Ql (U)Ord ered By: Heriberto Frazier on 06-07-2024 Protein Ql (U) 15 mg/dl High Negative [facility] RBC Auto (Bld) [#/Vol]Ordere d By: ED PROVIDER on 06-07-2024 RBC (Bld) [#/Vol] 4.48 10*6/uL 4.2-5.4 [facility] Serum beta-hCG test, qualita tiveOrdered By: ED PROVIDER on 06-07-2024 Beta HCG ( test) Ql Negative [facility] Comment on above: CRITICAL VALUE MORENO D TO VINI GOTTLIEB (ER)06/07/24 1535 Ki Garcia.RESULTS READ BACK BY SAME. Serum creatinine measurement (mass/volume)Ordered By: ED PROVIDER on 06-07-2024 Creatinine [Mass/Vol] 0.84 mg/dL Normal 0.70-1.20 [facility] Comment on above: Performed By: #### L 700.6800, L500.4050, L100.0100, L501.2450 ####[facility] [address] [place], [place], [phone] Serum globulin measurementOr dered By: ED PROVIDER on 06-07-2024 Globulin (S) [Mass/Vol] 3.2 g/dL Normal 2.2-4.2 [facility] Comment on above: Performed By: #### L 700.6800, L500.4050, L100.0100, L501.2450 ####[facility] [address] [place], [address] Serum glucose measurement (m ass/volume)Ordered By: ED PROVIDER on 06-07-2024 Glucose [Mass/Vol] 123 mg/dL High 70-99 [facility] Comment on above: Performed By: #### L 700.6800, L500.4050, L100.0100, L501.2450 ####[facility] [address] [place], [address] Serum human chorionic gonado tropin detection for pregnancyOrdered By: Isidro Moran on 06-07-2024 HCG ( [place] [address] mIU/mL High <9 [facility] Comment on above: Gestational Age0.2-1 Week: 5-50 mIU/mL1-2 Weeks: 50-500 mIU/mL2-3 Weeks: 100-5000 mIU/mL3-4 Weeks: 500-10,000 mIU/mL4-5 Weeks:1000-50,000 mIU/mL5-6 Weeks: 10,000-100,000 mIU/mL6-8 Weeks: 15,000-200,000 mIU/mL2-3 Months:10,000-100,000 mIU/mL Serum or plasma alanine reyna otransferase (ALT) measurementOrdered By: ED PROVIDER on 06-07-2024 ALT [Catalytic activity/Vol] 11 U/L Normal <=34 [facility] Comment on above: Performed By: #### L 700.6800, L500.4050, L100.0100, L501.2450 ####[facility] [address] [place], [address] Serum or plasma albumin halle urement (mass/volume)Ordered By: ED PROVIDER on 06-07-2024 Albumin [Mass/Vol] 4.4 g/dL Normal 3.5-5.0 [facility] Comment on above: Performed By: #### L 700.6800, L500.4050, L100.0100, L501.2450 ####[facility] [address] [place], [address] Serum or plasma albumin/glob ulin mass ratioOrdered By: ED PROVIDER on 06-07-2024 Albumin/Globulin [Mass ratio] 1.4 {ratio} Normal 0.9-2.4 [facility] Comment on above: Performed By: #### L 700.6800, L500.4050, L100.0100, L501.2450 ####[facility] [address] [place], [address] Serum or plasma alkaline veronica sphatase measurementOrdered By: ED PROVIDER on 06-07-2024 ALP [Catalytic activity/Vol] 115 U/L High 35-104 [facility] Serum or plasma calcium halle urement (mass/volume)Ordered By: ED PROVIDER on 06-07-2024 Calcium [Mass/Vol] 9.9 mg/dL Normal 7.6-11.0 [facility] Comment on above: Performed By: #### L 700.6800, L500.4050, L100.0100, L501.2450 ####[facility] [address] [place], [address] Serum or plasma urea nitroge n measurement (mass/volume)Ordered By: ED PROVIDER on 06-07-2024 Urea nitrogen [Mass/Vol] 8 mg/dL Normal 4-19 [facility] Comment on above: Performed By: #### L 700.6800, L500.4050, L100.0100, L501.2450 ####[facility] [address] [place], [address] Sodium levelOrdered By: ED P GORDONDER on 06-07-2024 Sodium [Moles/Vol] 139 mmol/L Normal 133-145 [facility] Comment on above: Performed By: #### L 700.6800, L500.4050, L100.0100, L501.2450 ####[facility] [address] [place], [address] Squamous epithelial cells de tection in urine sediment by light microscopyOrdered By: Heriberto Frazier on 06-07-2024 Epithelial cells.squamous LM Ql (Urine sed) 0-5 SEEN /hpf 5-10 [facility] Total proteinOrdered By: ED PROVIDER on 06-07-2024 Protein [Mass/Vol] 7.7 g/dL 5.9-8.4 [facility] Transvaginal w/Preg USon Transvaginal w/Preg US [facility] Services [address] [place], [place] [address] Transvaginal w/Preg US MR#: [id number] Acct: [id number] Name: LEONOR CAMACHON Rep #: [id number] : 1990 F 33 From: Nile Mirza MD PCP: Dr. Miguel Gonzalez MD Status: REG ER Study: Transvaginal w/Preg US Date of Exam: 06/07/24 Exam# [id number] Ordering Dr: Isidro Moran PREPARATION ROOM MANAGER-Kirsten PROCEDURE: TRANSVAGINAL W/PREG US 06/07/2024 REASON FOR [...] and unremarkable. DIMENSIONS: Parameter Measurement / EGA [place] Rump Length: 5 mm/6 weeks 3 days Gestational Sac: 20 mm/6 weeks 6 days Yolk Sac: 3 mm/ ESTIMATED GESTATIONAL AGE: By Ultrasound: 6 weeks 5 days By LMP: 5 weeks 2 days ESTIMATED DATE OF DELIVERY: By Ultrasound: 01/26/2025 By LMP: 02/05/2025 US/Transvaginal w/Preg US IMPRESSION: UNREMARKABLE FIRST TRIMESTER ULTRASOUND. Reading Location: [facility] CC: PREPARATION ROOM MANAGER-Kirsten Moran; Dr. Miguel Gonzalez MD Technical Training Specialist: Signed Normal [facility] Urinalysis, Completeon 06-07 EPI,SQUAMOUS 0-5 SEEN Normal 5-10 [facility] Comment on above: Order Comment: COLLE CTOR TO SPECIFY Performed By: #### L 400.0001 ####[facility] [address] [place], [place], [id number] RBC 0-5 SEEN Normal 0-5 [facility] Comment on above: Order Comment: COLLE CTOR TO SPECIFY Performed By: #### L 400.0001 ####[facility] [address] [place], [address] WBC 5-10 SEEN Normal 0-5 [facility] Comment on above: Order Comment: ANABELLA CTOR TO SPECIFY Performed By: #### L 400.0001 ####[facility] [address] [place], [address] BACTERIA 1+ /hpf Normal None Seen [facility] Comment on above: Order Comment: ANABELLA CTOR TO SPECIFY Performed By: #### L 400.0001 ####[facility] [address] [place], [address] Mucus Ql (Urine sed) 0 SEEN Normal [facility] Comment on above: Order Comment: ANABELLA CTOR TO SPECIFY Performed By: #### L 400.0001 ####[facility] [address] [place], [place], [id number] Urine blood detectionOrdered By: Heriberto Frazier on 06-07-2024 Urine Occult Blood Negative Negative [facility] Urine clarityOrdered By: Josee Frazier on 06-07-2024 Clarity (U) Sl. Cloudy Clear [facility] Urine color determinationOrd ered By: Heriberto Frazier on 06-07-2024 Color (U) Yellow Yellow [facility] Urine glucose detectionOrder ed By: Heriberto Frazier on 06-07-2024 Glucose Ql (U) Normal mg/dl Normal [facility] Urine leukocyte esterase det ection by dipstickOrdered By: Heriberto Frazier on 06-07-2024 Leukocyte esterase Test strip Ql (U) 25 /ul High Negative [facility] Urine pHOrdered By: Heriberto hugo on 06-07-2024 pH (U) 7.0 [pH] 5.0 - 8.0 [facility] Urine sediment bacteria coun t by microscopy (number/high power field)Ordered By: Heriberto Frazier on 06-07-2024 Bacteria LM.HPF (Urine sed) [#/Area] 1 /[HPF] None Seen [facility] Urine specific gravity measu rementOrdered By: Heriberto Frazier on 06-07-2024 Specific gravity (U) [Rel density] 1.010 1.002-1.030 [facility] Urine urobilinogen measureme ntOrdered By: Heriberto Freddie on 06-07-2024 Urobilinogen Ql (U) Normal mg/dl Normal [facility] Urobilinogen Ql (U)Ordered B y: Heriberto Bustamanteraheelgeovanny on 06-07-2024 Urine Urobilinogen Normal mg/dl Normal [facility] White blood cell (WBC) count Ordered By: ED PROVIDER on 06-07-2024 WBC (Bld) [#/Vol] 12.0 10*3/uL High 4.4-11.0 [facility] White blood cell countOrdere d By: Heriberto Frazier on 06-07-2024 Urine WBC 5-10 SEEN /hpf 0-5 [facility] White blood cell count 5-10 SEEN /hpf 0-5 [facility] hCG Titer Quant., Serumon HCG QUANT. 71686 mIU/mL High <9 non-preg [facility] Comment on above: Result Comment: Gest ational Age 0.2-1 Week: 5-50 mIU/mL 1-2 Weeks: 50-500 mIU/mL 2-3 Weeks: 100-5000 mIU/mL 3-4 Weeks: 500-10,000 mIU/mL 4-5 Weeks:1000-50,000 mIU/mL 5-6 Weeks: 10,000-100,000 mIU/mL 6-8 Weeks: 15,000-200,000 mIU/mL 2-3 Months:10,000-100,000 mIU/mL Performed By: #### L 700.8000 ####[facility] [address] [place], [address] Absolute lymphocyte countOrd ered By: John Ariza on 04-26-2024 Lymphocytes Auto (Unsp spec) [#/Vol] 2.63 10*3/uL 0.83-4.51 [facility] Absolute neutrophil countOrd ered By: John Ariza on 04-26-2024 Neutrophils (Bld) [#/Vol] 5.7 10*3/uL 2.0-7.7 [facility] Automated lymphocyte count a s percentage of total leukocytesOrdered By: John Ariza on 04-26-2024 Lymphocytes/100 WBC Auto (Unsp spec) 29.6 % 19-41 [facility] Basophil percentageOrdered B y: John Ariza on 04-26-2024 Basophils/100 WBC (Bld) 0.3 % 0-1 [facility] CBC W/Diff, Automatedon Absolute Lymph 2.63 X10 3/uL Normal 0.83-4.51 [facility] Comment on above: Performed By: #### L 100.0100, L501.9520 #### [facility] [address] [place], [address] Absolute Neut 5.7 X10 3/uL Normal 2.0-7.7 [facility] Comment on above: Performed By: #### L 100.0100, L501.9520 #### [facility] [address] [place], [address] Basophils/100 WBC (Bld) 0.3 % Normal 0-1 [facility] Comment on above: Performed By: #### L 100.0100, L501.9520 #### [facility] [address] [place], [address] Eosinophils/100 WBC (Bld) 0.6 % Normal 0-5 [facility] Comment on above: Performed By: #### L 100.0100, L501.9520 #### [facility] [address] [place], [address] Erythrocyte distribution width (RBC) [Ratio] 13.2 % Normal 11.6-14.6 [facility] Comment on above: Performed By: #### L 100.0100, L501.9520 #### [facility] [address] [place], [address] Hematocrit (Bld) [Volume fraction] 39.7 % Normal 37-47 [facility] Comment on above: Performed By: #### L 100.0100, L501.9520 #### [facility] [address] [place], [address] Hemoglobin (Bld) [Mass/Vol] 12.7 g/dL Normal 12.0-15.0 [facility] Comment on above: Performed By: #### L 100.0100, L501.9520 #### [facility] [address] [place], [address] IG% 0.300 Normal 0.0-0.9 [facility] Comment on above: Result Comment: IG% - Immature Granulocytes (promyelocytes, myelocytes and metamyelocytes) > 1% indicates that a LEFT SHIFT is Present. Performed By: #### L 100.0100, L501.9520 #### [facility] [address] [place], [address] Lymphocytes/100 WBC (Bld) 29.6 % Normal 19-41 [facility] Comment on above: Performed By: #### L 100.0100, L501.9520 #### [facility] [address] [place], [address] MCH (RBC) [Entitic mass] 27.7 pg Normal 27.0-32.0 [facility] Comment on above: Performed By: #### L 100.0100, L501.9520 #### [facility] [address] [place], [address] MCHC (RBC) [Mass/Vol] 32.0 g/dL Normal 32-36 [facility] Comment on above: Performed By: #### L 100.0100, L501.9520 #### [facility] [address] [place], [address] MCV (RBC) [Entitic vol] 86.5 fL Normal 81-99 [facility] Comment on above: Performed By: #### L 100.0100, L501.9520 #### [facility] [address] [place], [address] Monocytes/100 WBC (Bld) 5.7 % Normal 0-10 [facility] Comment on above: Performed By: #### L 100.0100, L501.20 #### [facility] [address] [place], [address] Neutrophils/100 WBC (Bld) 63.5 % Normal 47-70 [facility] Comment on above: Performed By: #### L 100.0100, L501.9520 #### [facility] [address] [place], [address] Nucleated RBC (Bld) [#/Vol] 0 10*3/uL Normal 0-5 [facility] Comment on above: Performed By: #### L 100.0100, L501.9520 #### [facility] [address] [place], [address] Platelet mean volume (Bld) [Entitic vol] 12.4 fL High 6.2-12.0 [facility] Comment on above: Performed By: #### L 100.0100, L501.20 #### [facility] [address] [place], [address] Platelets (Bld) [#/Vol] 231 10*3/uL Normal 150-450 [facility] Comment on above: Performed By: #### L 100.0100, L501.20 #### [facility] [address] [place], [address] RBC (Bld) [#/Vol] 4.59 10*6/uL Normal 4.2-5.4 [facility] Comment on above: Performed By: #### L 100.0100, L501.9520 #### [facility] [address] [place], [address] RDW SD 41.4 fl Normal 35.1-43.9 [facility] Comment on above: Performed By: #### L 100.0100, L501.9520 #### [facility] [address] [place], [address] WBC (Bld) [#/Vol] 8.9 10*3/uL Normal 4.4-11.0 [facility] Comment on above: Performed By: #### L 100.0100, L501.9520 #### [facility] [address] [place], [address] Eosinophil percentageOrdered By: Johnbeth Ariza on 04-26-2024 Eosinophils/100 WBC (Bld) 0.6 % 0-5 [facility] Erythrocyte distribution wid th ratioOrdered By: John Ariza on 04-26-2024 Erythrocyte distribution width (RBC) [Ratio] 13.2 % 11.6-14.6 [facility] Erythrocyte distribution wid th standard deviationOrdered By: Johnbeth Ariza on 04-26-2024 Erythrocyte distribution width (RBC) [Entitic vol] 41.4 fL 35.1-43.9 [facility] Erythrocyte distribution width (RBC) [Ratio] 41.4 fl 35.1-43.9 [facility] Hematocrit Auto (Bld) [Volum e fraction]Ordered By: John Ariza on 04-26-2024 Hematocrit (Bld) [Volume fraction] 39.7 % 37-47 [facility] Hemoglobin measurementOrdere d By: John Ariza on 04-26-2024 Hemoglobin (Bld) [Mass/Vol] 12.7 g/dL 12.0-15.0 [facility] Immature granulocytes/100 WB C Auto (Bld)Ordered By: Johnbeth Ariza on 04-26-2024 Immature granulocytes/100 WBC (Bld) 0.300 % 0.0-0.9 [facility] Comment on above: IG% - Immature Granu locytes (promyelocytes, myelocytes and metamyelocytes) > 1% indicates that a LEFT SHIFT is Present. Lymphocytes Auto (Unsp spec) [#/Vol]Ordered By: John Ariza on 03-04-2025 Lymphocytes (Bld) [#/Vol] 2.63 10*3/uL 0.83-4.51 [facility] Lymphocytes/100 WBC Auto (Un sp spec)Ordered By: John Ariza on 04-26-2024 Lymphocytes/100 WBC (Bld) 29.6 % 19-41 [facility] MCV (mean corpuscular volume ) determinationOrdered By: John Ariza on 04-26-2024 MCV (RBC) [Entitic vol] 86.5 fL 81-99 [facility] Mean corpuscular hemoglobin (MCH) determinationOrdered By: John Ariza on 04-26-2024 MCH (RBC) [Entitic mass] 27.7 pg 27.0-32.0 [facility] Mean corpuscular hemoglobin concentration (MCHC) determinationOrdered By: Johnbeth Ariza on 04-26-2024 MCHC (RBC) [Mass/Vol] 32.0 g/dL 32-36 [facility] Mean platelet volume determi nationOrdered By: John Ariza on 04-26-2024 Platelet mean volume (Bld) [Entitic vol] 12.4 fL High 6.2-12.0 [facility] Monocyte percentageOrdered B y: John Ariza on 04-26-2024 Monocytes/100 WBC (Bld) 5.7 % 0-10 [facility] Neutrophil percentageOrdered By: John Ariza on 04-26-2024 Neutrophils/100 WBC (Bld) 63.5 % 47-70 [facility] Nucleated red blood cell per centageOrdered By: John Ariza on 04-26-2024 Nucleated RBC/100 WBC (Bld) [Ratio] 0 % 0-5 [facility] Platelet countOrdered By: Brian Ariza on 04-26-2024 Platelets (Bld) [#/Vol] 231 10*3/uL 150-450 [facility] RBC Auto (Bld) [#/Vol]Ordere d By: John Ariza on 04-26-2024 RBC (Bld) [#/Vol] 4.59 10*6/uL 4.2-5.4 [facility] TSH DL <= 0.005 mIU/L QnOrde red By: John Ariza on 04-26-2024 Thyroid Stimulating Hormone (TSH) 1.850 uIU/mL 0.300-4.200 [facility] TSH Qn 1.850 uIU/mL 0.300-4.200 [facility] Thyroid Stim Hormone (TSH)on 04-26-2024 TSH 1.850 uIU/mL Normal 0.300-4.200 [facility] Comment on above: Performed By: #### L 100.0100, L501.9520 #### [facility] [address] [place], [address] White blood cell (WBC) count Ordered By: John Ariza on 04-26-2024 WBC (Bld) [#/Vol] 8.9 10*3/uL 4.4-11.0 [facility] LIPID PANEL, STANDARDon Cholesterol [Mass/Vol] 254 mg/dL High <200 [facility] Comment on above: Order Comment: 0 FASTING:YES FASTING: YES Performed By: #### 7 600 #### [facility] [address], [address] [place], [place] [id number] Digital Watch Assembler: Kuldeep Perez MD Cholesterol in HDL [Mass/Vol] 67 mg/dL Normal > OR = 50 [facility] Comment on above: Order Comment: 0 FASTING:YES FASTING: YES Performed By: #### 7 600 #### [facility] [address], [address] [place], [place] [id number] Digital Watch Assembler: Kuldeep Perez MD Cholesterol in LDL [Mass/Vol] 169 mg/dL High [facility] Comment on above: Order Comment: 0 FASTING:YES FASTING: YES Result Comment: Refe rence range: <100 Desirable range <100 mg/dL for primary prevention; <70 mg/dL for patients with CHD or diabetic patients with > or = 2 CHD risk factors. LDL-C is now calculated using the Rocky calculation, which is a validated novel method providing better accuracy than the Friedewald equation in the estimation of LDL-C. Shun BURNETT et al. RENÉ. 2013;310(19): 3732-3612 (http://education.[facility].ShowMe VIdeoke/faq/SKC154) Performed By: #### 7 600 #### [facility] [address], [address] [place] [address] Digital Watch Assembler: Kuldeep Perez MD Cholesterol.total/Choles terol in HDL [Mass ratio] 3.8 {ratio} Normal <5.0 [facility] Comment on above: Order Comment: 0 FASTING:YES FASTING: YES Performed By: #### 7 600 #### [facility] [address], [address] [place] [address] Digital Watch Assembler: Kuldeep Perez MD NON HDL CHOLESTEROL 187 mg/dL (calc) High <130 [facility] Comment on above: Order Comment: 0 FASTING:YES FASTING: YES Result Comment: For patients with diabetes plus 1 major ASCVD risk factor, treating to a non-HDL-C goal of <100 mg/dL (LDL-C of <70 mg/dL) is considered a therapeutic option. Performed By: #### 7 600 #### [facility] [address], [address] [place] [address] Digital Watch Assembler: Kuldeep Perez MD Triglyceride [Mass/Vol] 76 mg/dL Normal <150 [facility] Comment on above: Order Comment: 0 FASTING:YES FASTING: YES Performed By: #### 7 600 #### [facility] [address], [address] [place] [address] Digital Watch Assembler: Kuldeep Perez MD Absolute lymphocyte countOrd ered By: Valorie Miller on 03-27-2023 Lymphocytes Auto (Unsp spec) [#/Vol] 2.34 10*3/uL 0.83-4.51 [facility] Automated lymphocyte count a s percentage of total leukocytesOrdered By: Valorie Miller on 03-27-2023 Lymphocytes/100 WBC Auto (Unsp spec) 22.2 % 19-41 [facility] Basophil percentageOrdered B y: Valorie Miller on 03-27-2023 Basophils/100 WBC (Bld) 0.4 % 0-1 [facility] Eosinophils/100 WBC (Bld) 0.4 % 0-5 [facility] Hemoglobin (Bld) [Mass/Vol] 11.9 g/dL 12.0-15.0 [facility] Monocytes/100 WBC (Bld) 5.0 % 0-10 [facility] Neutrophils (Bld) [#/Vol] 7.6 10*3/uL 2.0-7.7 [facility] Neutrophils/100 WBC (Bld) 71.7 % 47-70 [facility] WBC (Bld) [#/Vol] 10.6 10*3/uL 4.4-11.0 [facility] Determination of erythrocyte mean corpuscular volume (MCV)Ordered By: Valorie Miller on 03-27-2023 MCV (RBC) [Entitic vol] 88.2 fL 81-99 [facility] Erythrocyte distribution wid th ratioOrdered By: Valorie Miller on 03-27-2023 Erythrocyte distribution width (RBC) [Ratio] 12.5 % 11.6-14.6 [facility] Erythrocyte distribution wid th standard deviationOrdered By: Valorie Miller on 03-27-2023 Erythrocyte distribution width (RBC) [Entitic vol] 40.4 fL 35.1-43.9 [facility] HIV 1 and HIV-2 antibody ass ay with HIV-1 p24 antigen detectionOrdered By: Valorie Miller on 03-27-2023 HIV 1+2 Ab+HIV1 p24 Ag IA Ql Non-Reactive Nonreactive [facility] Hematocrit Auto (Bld) [Volum e fraction]Ordered By: Valorie Miller on 03-27-2023 Hematocrit (Bld) [Volume fraction] 36.5 % 37-47 [facility] Immature granulocytes/100 WB C Auto (Bld)Ordered By: Valorie Miller on 03-27-2023 Immature granulocytes/100 WBC (Bld) 0.300 % 0.0-0.9 [facility] Comment on above: IG% - Immature Granu locytes (promyelocytes, myelocytes and metamyelocytes) > 1% indicates that a LEFT SHIFT is Present. Laboratory - Chemistry and C hemistry - challengeon 03-27-2023 Glucose Ql (U) Negative [facility] - Hematology and Cell countsOrdered By: Valorie Miller on 03-27-2023 MCH (RBC) [Entitic mass] 28.7 pg 27.0-32.0 [facility] MCHC (RBC) [Mass/Vol] 32.6 g/dL 32-36 [facility] Nucleated RBC/100 WBC (Bld) [Ratio] 0 % 0-5 [facility] Platelets (Bld) [#/Vol] 165 10*3/uL 150-450 [facility] - Urinalysison Protein Ql (U) Negative [facility] No Panel InformationOrdered By: Valorie Miller on 03-27-2023 Hepatitis B Surface Antigen Non-Reactive Nonreactive [facility] Hepatitis C Antibody Non-Reactive Nonreactive [facility] Comment on above: Non Reactive: < 0.8 Equivocal: >/= 0.8 to < 1.0 Reactive: >/= 1.0The CDC recommends that a reactive/equivocal HCV antibody result be followed up by the HCV Nucleic Acid Amplificationtest ([id number]) Rubella IgG Antibody Reactive Nonreactive [facility] Comment on above: Antibody Results Int erpretation of Immune Status Non Reactive Presumed Non-Immune Equivocal Equivocal Reactive Presumed Immune Platelet mean volume Demond-Ec ker (Bld) [Entitic vol]Ordered By: Valorie Miller on 03-27-2023 Platelet mean volume (Bld) [Entitic vol] 12.6 fL 6.2-12.0 [facility] RBC Auto (Bld) [#/Vol]Ordere d By: Valorie Miller on 03-27-2023 RBC (Bld) [#/Vol] 4.14 10*6/uL 4.2-5.4 [facility] Serum Treponema species anti body detectionOrdered By: Valorie Miller on 03-27-2023 Treponema sp Ab Ql (S) Non-Reactive [facility] Chlamydia trachomatis rRNA d etection by probe and target amplification methodOrdered By: Valorie Miller on 03-10-2023 C. trachomatis rRNA JOVITA+probe Ql (Unsp spec) Negative Negative [facility] Culture, urineOrdered By: Fareed Miller on 03-10-2023 Bacteria identified Cx Nom (U) Culture exhibits no growth. [facility] Laboratory - Microbiology an d Antimicrobial susceptibilityOrdered By: Valorie Miller on 03-10-2023 N. gonorrhoeae DNA JOVITA+probe Ql (Unsp spec) Negative Negative [facility] Comment on above: Performed at: [address] [place] [id number] Director: Noelle Sorto MD, Phone: [phone] Serum or plasma choriogonado tropin detectionOrdered By: Indiana Lazo on 02-13-2023 HCG ( [place] [address] mIU/mL <4 [facility] Comment on above: hCG levels with Gest ational AgeGestational Age hCG mIU/mL (IU/L)0.2 - 1 week 5 - 501-2 weeks 50 - 5002-3 weeks 100 - 44219-3 weeks 500 - 398533-1 weeks 1000 - 177424-1 weeks 01083 - 100,0006-8 weeks 03579 - 200,0002-3 months 30364 - 100,000 Serum or plasma choriogonado tropin detectionOrdered By: Cassandra Lockhart on 02-11-2023 HCG ( test) Ql 7773 mIU/mL <4 [facility] Comment on above: hCG levels with Gest ational AgeGestational Age hCG mIU/mL (IU/L)0.2 - 1 week 5 - 501-2 weeks 50 - 5002-3 weeks 100 - 99491-4 weeks 500 - 731229-3 weeks 1000 - 206051-7 weeks 28691 - 100,0006-8 weeks 12680 - 200,0002-3 months 53743 - 100,000 B-HCG SerPl-aCncon 3 HCG.beta subunit Qn m[IU]/mL Normal <5.0 [facility] Comment on above: Order Comment: Speci men Type: BLOOD SPECIMENOrdering Facility: [facility] Address: [address] [place] [address] Result Comment: Sofía ballard Performed By: #### 2 4323-8, 3040-3, 70999-6, 04289-4 ####[facility] LABCLIA [id number] [facility] [address] [facility] CBC panel Auto (Bld)on 08-20 Erythrocyte distribution width (RBC) [Ratio] 12.6 % Normal 11.5-15.0 [facility] Comment on above: Order Comment: Speci men Type: BLOOD SPECIMEN [facility] Address: [address] [place] [address] Performed By: #### 5 8410-2 #### [facility] [place] [facility] CLIA [id number] [address] [place], [place] [id number] [place] [address] [place] Hematocrit (Bld) [Volume fraction] 40.0 % Normal 36.0-46.0 [facility] Comment on above: Order Comment: Speci men Type: BLOOD SPECIMEN [facility] Address: [address] [place] [address] Performed By: #### 5 8410-2 #### [facility] CLIA [id number] [address] [place] [address] [place] Hemoglobin (Bld) [Mass/Vol] 13.2 g/dL Normal 11.5-15.5 [facility] Comment on above: Order Comment: Speci men Type: BLOOD SPECIMEN [facility] Address: [address] [place] [address] Performed By: #### 5 8410-2 #### [facility] CLIA [id number] [address] [place] MCH (RBC) [Entitic mass] 29.4 pg Normal 26.0-34.0 [facility] Comment on above: Order Comment: Speci men Type: BLOOD SPECIMEN [facility] Address: [address] [place] [address] Performed By: #### 5 8410-2 #### [facility] [place] [facility] CLIA [id number] [address] [place] [address] [place] MCHC (RBC) [Mass/Vol] 33.0 g/dL Normal 30.5-36.0 [facility] Comment on above: Order Comment: Speci men Type: BLOOD SPECIMEN [facility] Address: [address] [place] [address] Performed By: #### 5 8410-2 #### [facility] [place] [facility] CLIA [id number] [address] [place] [address] [place] MCV (RBC) [Entitic vol] 89.1 fL Normal 80.0-100.0 [facility] Comment on above: Order Comment: Speci men Type: BLOOD SPECIMEN [facility] Address: [address] [place] [address] Performed By: #### 5 8410-2 #### [facility] [place] [facility] CLIA [id number] [address] [place] [address] [place] Platelet mean volume (Bld) [Entitic vol] 12.5 fL Normal 9.0-12.7 [facility] Comment on above: Order Comment: Speci men Type: BLOOD SPECIMEN [facility] Address: [address] [place] [address] Performed By: #### 5 8410-2 #### [facility] CLIA [id number] [address] [place] [address] [place] Platelets (Bld) [#/Vol] 187 10*3/uL Normal 150-400 [facility] Comment on above: Order Comment: Speci men Type: BLOOD SPECIMEN [facility] Address: [address] [place] [address] Performed By: #### 5 8410-2 #### [facility] [place] [facility] CLIA [id number] [address] [place] [address] [place] RBC (Bld) [#/Vol] 4.49 10*6/uL Normal 3.90-5.20 [facility] Comment on above: Order Comment: Speci men Type: BLOOD SPECIMEN [facility] Address: [address] [place] [address] Performed By: #### 5 8410-2 #### [facility] [place] [facility] CLIA [id number] [address] [place] [address] [place] WBC (Bld) [#/Vol] 10.62 10*3/uL Normal 3.70-11.00 [facility] Comment on above: Order Comment: Speci men Type: BLOOD SPECIMEN [facility] Address: [address] [place] [address] Performed By: #### 5 8410-2 #### [facility] CLIA [id number] [address] [place] [address] [facility] Comprehensive metabolic 2000 panelon 08-20-2022 Albumin [Mass/Vol] 4.5 g/dL Normal 3.9-4.9 [facility] Comment on above: Order Comment: Speci men Type: BLOOD SPECIMENOrdering Facility: [facility] Address: [address] [place] [address] Performed By: #### 2 4323-8, 3040-3, 36898-0, 89615-0 ####[facility] LABCLIA [id number] [place] [address] [facility] ALP [Catalytic activity/Vol] 97 U/L Normal 34-123 [facility] Comment on above: Order Comment: Speci men Type: BLOOD SPECIMENOrdering Facility: [facility] Address: [address] [place] [address] Performed By: #### 2 4323-8, 3040-3, 72162-4, 98763-8 ####[facility] LABCLIA [id number] [place] [address] [facility] ALT With P-5'-P [Catalytic activity/Vol] 11 U/L Normal 7-[address] [facility] Comment on above: Order Comment: Speci men Type: BLOOD SPECIMENOrdering Facility: [facility] Address: [address] [place] [address] Performed By: #### 2 4323-8, 3040-3, 68742-8, 17788-0 ####[facility] LABCLIA [id number] [place] [address] [place] Anion gap [Moles/Vol] 13 mmol/L Normal 9-18 [facility] Comment on above: Order Comment: Speci men Type: BLOOD SPECIMENOrdering Facility: [facility] Address: [address] [place] [address] Performed By: #### 2 4323-8, 3040-3, 76432-5, 80268-1 ####[facility] [place] LABCLIA [id number] [place] [address] [place] AST With P-5'-P [Catalytic activity/Vol] 13 U/L Normal 13-[address] [facility] Comment on above: Order Comment: Speci men Type: BLOOD SPECIMENOrdering Facility: [facility] Address: [address] [place] [address] Performed By: #### 2 4323-8, 3040-3, 96484-3, 31233-4 ####[facility] LABCLIA [id number] [place] [address] [place] Bilirubin [Mass/Vol] mg/dL Low 0.2-1.3 [facility] Comment on above: Order Comment: Speci men Type: BLOOD SPECIMENOrdering Facility: [facility] Address: [address] [place] [address] Performed By: #### 2 4323-8, 3040-3, 18234-5, 69144-6 ####[facility] LABCLIA [id number] [place] [address] [place] Calcium [Mass/Vol] 9.3 mg/dL Normal 8.5-10.2 [facility] Comment on above: Order Comment: Speci men Type: BLOOD SPECIMENOrdering Facility: [facility] Address: [address] [place] [address] Performed By: #### 2 4323-8, 3040-3, 32571-9, 39089-4 ####[facility] [place] LABCLIA [id number] [place] [address] [place] Chloride [Moles/Vol] 102 mmol/L Normal 97-105 [facility] Comment on above: Order Comment: Speci men Type: BLOOD SPECIMENOrdering Facility: [facility] Address: [address] [place] [address] Performed By: #### 2 4323-8, 3040-3, 78157-7, 09867-6 ####[facility] LABCLIA [id number] [place] [address] [place] CO2 [Moles/Vol] 22 mmol/L Normal 22-30 [facility] Comment on above: Order Comment: Speci men Type: BLOOD SPECIMENOrdering Facility: [facility] Address: [address] [place] [address] Performed By: #### 2 4323-8, 3040-3, 15976-5, 00846-2 ####[facility] LABCLIA [id number] [place] [address] [place] Creatinine [Mass/Vol] 0.76 mg/dL Normal 0.58-0.96 [facility] Comment on above: Order Comment: Speci men Type: BLOOD SPECIMENOrdering Facility: [facility] Address: [address] [place] [address] Performed By: #### 2 4323-8, 3040-3, 83306-8, 42615-7 ####[facility] LABCLIA [id number] [place] [address] [place] [facility] ESTIMATED GLOMERULAR FILTRATION RATE 108 mL/min/1.73m??? Normal >=60 [facility] Comment on above: Order Comment: Speci men Type: BLOOD SPECIMENOrdering Facility: [facility] Address: [address] [place] [address] Result Comment: Ilana mated Glomerular Filtration Rate [...] GFR. Performed By: #### 2 4323-8, 3040-3, 36778-0, 84851-1 ####[facility] [place] LABCLIA [id number] [place] [address] [place] Glucose [Mass/Vol] 94 mg/dL Normal 74-99 [facility] Comment on above: Order Comment: Marily mary Type: BLOOD SPECIMENOrdering Facility: [facility] Address: [address] [place], [place] [id number] Result Comment: The [place] Diabetes Association (ADA) provides guidance for cutoff [...] Standards of Medical Care in Diabetes 2016, [place] [employer] Association. Diabetes Care. 2016.39(Suppl 1). Performed By: #### 2 4323-8, 3040-3, 79525-9, ####[facility] LABCLIA [id number] [place] [address] [place] Potassium [Moles/Vol] 3.7 mmol/L Normal 3.7-5.1 [facility] Comment on above: Order Comment: Marily mary Type: BLOOD SPECIMENOrdering Facility: [facility] Address: [address] [place] [address] Performed By: #### 2 4323-8, 3040-3, 29252-9, 64873-7 ####[facility] LABCLIA [id number] [place] [address] [place] Protein [Mass/Vol] 7.5 g/dL Normal 6.3-8.0 [facility] Comment on above: Order Comment: Speci men Type: BLOOD SPECIMENOrdering Facility: [facility] Address: [address] [place], [place] [address] Performed By: #### 2 4323-8, 3040-3, 26006-3, 45356-9 ####[facility] LABCLIA [id number] [place] [address] [facility] Sodium [Moles/Vol] 137 mmol/L Normal 136-144 [facility] Comment on above: Order Comment: Speci men Type: BLOOD SPECIMENOrdering Facility: [facility] Address: [address] [place] [address] Performed By: #### 2 4323-8, 3040-3, 28887-7, 16535-9 ####[facility] LABCLIA [id number] [place] [address] [facility] Urea nitrogen [Mass/Vol] 14 mg/dL Normal 7-21 [facility] Comment on above: Order Comment: Speci men Type: BLOOD SPECIMENOrdering Facility: [facility] Address: [address] [place] [address] Performed By: #### 2 4323-8, 3040-3, 37679-0, 82542-6 ####[facility] LABCLIA [id number] [place] [id number] [facility] D dimer FEU PPP-mCncon 08-20 Fibrin D-dimer FEU (PPP) [Mass/Vol] 230 ng/mL FEU Normal <500 [facility] Comment on above: Order Comment: Speci men Type: BLOOD SPECIMEN [facility] Address: [address] [place] [address] Performed By: #### 4 8065-7 #### [facility] [place] [facility] CLIA [id number] [address] [place] [address] [facility] ECG COMPLETEon 08-20-2022 ECG COMPLETE Ventricular Rate : 73 BPM Atrial Rate : 73 BPM P-R Interval : 142 ms QRS Duration : 92 ms Q-T Interval : 376 ms QTC Calculation(Bazett) : 414 ms Calculated P [place] : 61 degrees Calculated R [place] : 23 degrees Calculated T [place] : 31 degrees NORMAL SINUS RHYTHM WITH SINUS ARRHYTHMIA RSR' OR QR PATTERN IN V1 SUGGESTS RIGHT VENTRICULAR CONDUCTION DELAY BORDERLINE ECG NO PREVIOUS ECGS AVAILABLE Confirmed by MD DILLARD VINAYAK ([id number]) on 08/21/2022 11:12:42 AM NAME : LEONOR CAMACHO PID : [id number] : 1990 Gender : Female Race : ORD : [id number] Procedure Date : Aug 20 2022 00:15:20 Edit Date : Aug 21 2022 11:12:42 Diagnosis: NORMAL SINUS RHYTHM WITH SINUS ARRHYTHMIA RSR' OR QR PATTERN IN V1 SUGGESTS RIGHT VENTRICULAR CONDUCTION DELAY BORDERLINE ECG NO PREVIOUS ECGS AVAILABLE Confirmed by MD DILLARD VINAYAK ([id number]) on 08/21/2022 11:12:42 AM Test Reason : cp Location : 150 : [place] Overread By : MD DILLARD VINAYAK Edited By : MD DILLARD VINAYAK Referred By : Marixa Acquired by : EILEEN OVERTON [facility] ED NOTEon 08-20-2022 ED NOTE HNO ID: [id number] Author: Hi Stanley RN Service: Emergency Medicine [...] with a steady gait at this time. [facility] ED NOTE HNO ID: [id number] Author: Hi Stanley RN Service: Emergency Medicine Author Type: Registered Nurse Type: ED Notes Filed: 08/20/2022 3:50 AM Note Text: Physician at bedside. [facility] ED NOTE HNO ID: [id number] Author: Hi Stanley RN Service: Emergency Medicine Author Type: Registered Nurse Type: ED Notes Filed: 08/20/2022 2:10 AM Note Text: care administrative tech at bedside for xray. [facility] ED NOTE HNO ID: [id number] Author: Hi Stanley RN Service: Emergency Medicine Author Type: Registered Nurse Type: ED Notes Filed: 08/20/2022 12:12 AM Note Text: RT at bedside for EKG. Normal [facility] ED PROV NOTEon 08-20-2022 ED PROV NOTE HNO ID: [id number] Author: Leatha Calvin MD Service: Emergency Medicine [...] (more content not included)... Normal [facility] HIGH SENSITIVITY TROPONIN T (INITIAL)on 08-20-2022 HIGH SENSITIVITY LIZZETH <6 Normal <12 [facility] Comment on above: Order Comment: Marily hernandez Type: BLOOD SPECIMEN [facility] Address: [address] [place] [address] Result Comment: When assessing risk for acute [...] 30 day MACE. Performed By: #### L [id number] #### [facility] CLIA [id number] [address] [place] [address] [place] HIGH SENSITIVITY TROPONIN T (SECOND)on 08-20-2022 HIGH SENSITIVITY LIZZETH <6 Normal <12 [facility] Comment on above: Order Comment: Marily hernandez Type: BLOOD SPECIMEN [facility] Address: [address] [place] [address] Result Comment: When assessing risk for acute [...] 30 day MACE. Performed By: #### L [id number] #### [facility] [place] [facility] CLIA [id number] [address] [place] [address] [place] Lipase SerPl-cCncon 06-28-20 23 Lipase [Catalytic activity/Vol] 40 U/L Normal 16-61 [facility] Comment on above: Order Comment: Speci men Type: BLOOD SPECIMENOrdering Facility: [facility] Address: [address] [place] [address] Performed By: #### 2 4323-8, 3040-3, 74214-0, 59642-9 ####[facility] LABCLIA [id number] [place] [address] [facility] NT-proBNP SerPl-mCncon 08-20 Natriuretic peptide.B prohormone N-Terminal [Mass/Vol] <36 Normal <125 [facility] Comment on above: Order Comment: Speci mary Type: BLOOD SPECIMENOrdering Facility: [facility] Address: [address] [place] [id number] Performed By: #### 2 4323-8, 3040-3, 31761-8, 09594-1 ####[facility] LABCLIA [id number] [place] [address] [facility] XR CHEST 1V FRONTALon 2022 XR CHEST [...] radiographic evidence of an acute cardiopulmonary process. Technical Training Specialist: PSCB Transcribe Date/Time: Aug 20 2022 2:34A Dictated by : VERNON SOLOMON MD This examination was interpreted and the report reviewed and electronically signed by: VERNON SOLOMON MD on Aug 20 2022 2:35AM EST [id number] CN Normal [facility] Absolute lymphocyte counton 04-09-2021 Lymphocytes Auto (Unsp spec) [#/Vol] 2.28 10*3/uL 0.83-4.51 [facility] Work Phone: Basophil percentageon 2021 Basophils/100 WBC (Bld) 0.2 % 0-1 [facility] Work Phone: Eosinophils/100 WBC (Bld) 0.1 % 0-5 [facility] Work Phone: Neutrophils (Bld) [#/Vol] 13.8 10*3/uL 2.0-7.7 [facility] Work Phone: Neutrophils/100 WBC (Bld) 81.1 % 47-70 [facility] Work Phone: WBC (Bld) [#/Vol] 17.0 10*3/uL 4.4-11.0 [facility] Work Phone: Blood erythrocytes count (nu mber/volume)on 04-09-2021 RBC (Bld) [#/Vol] 4.34 10*6/uL 4.2-5.4 [facility] Work Phone: Blood hemoglobin measurement (mass/volume)on 04-09-2021 Hemoglobin (Bld) [Mass/Vol] 12.7 g/dL 12.0-15.0 [facility] Work Phone: Blood lymphocytes/100 leukoc yteson 04-09-2021 Lymphocytes/100 WBC (Bld) 13.4 % 19-41 [facility] Work Phone: Blood monocytes/100 leukocyt eson 04-09-2021 Monocytes/100 WBC (Bld) 4.5 % 0-10 [facility] Work Phone: Blood platelet mean volumeon 04-09-2021 Platelet mean volume (Bld) [Entitic vol] 12.8 fL 6.2-12.0 [facility] Work Phone: Determination of erythrocyte mean corpuscular volume (MCV)on 04-09-2021 MCV (RBC) [Entitic vol] 87.6 fL 81-99 [facility] Work Phone: Hematocrit Auto (Bld) [Volum e fraction]on 04-09-2021 Hematocrit (Bld) [Volume fraction] 38.0 % 37-47 [facility] Work Phone: Laboratory - Hematology and Cell countson 04-09-2021 Erythrocyte distribution width (RBC) [Entitic vol] 42.4 fL 35.1-43.9 [facility] Work Phone: Erythrocyte distribution width (RBC) [Ratio] 13.3 % 11.6-14.6 [facility] Work Phone: Immature granulocytes/100 WBC (Bld) 0.700 % 0.0-0.9 [facility] Work Phone: Comment on above: IG% - Immature Granu locytes (promyelocytes, myelocytes and metamyelocytes) > 1% indicates that a LEFT SHIFT is Present. MCH (RBC) [Entitic mass] 29.3 pg 27.0-32.0 [facility] Work Phone: Nucleated RBC/100 WBC (Bld) [Ratio] 0 % 0-5 [facility] Work Phone: MCHC Auto (RBC) [Mass/Vol]on 04-09-2021 MCHC (RBC) [Mass/Vol] 33.4 g/dL 32-36 [facility] Work Phone: No Panel Informationon 04-09 SARS-CoV-2 Antigen (Rapid) [facility] Work Phone: Platelets bldon 04-09-2021 Platelets (Bld) [#/Vol] 140 10*3/uL 150-450 [facility] Work Phone: Laboratory - Chemistry and C hemistry - challengeon 04-08-2021 Glucose Ql (U) Negative [facility] Work Phone: Laboratory - Urinalysison Protein Ql (U) Negative [facility] Work Phone: Laboratory - Chemistry and C hemistry - challengeon 03-29-2021 Glucose Ql (U) Negative [facility] Work Phone: Laboratory - Urinalysison Protein Ql (U) Negative [facility] Work Phone: Laboratory - Chemistry and C hemistry - challengeon 03-22-2021 Glucose Ql (U) Negative [facility] Work Phone: Laboratory - Urinalysison Protein Ql (U) Negative [facility] Work Phone: No Panel Informationon 03-22 Group B Streptococcus Culture Group B Beta Streptococcus is not isolated. [facility] Work Phone: Laboratory - Chemistry and C hemistry - challengeon 03-14-2021 Glucose Ql (U) Negative [facility] Work Phone: Laboratory - Urinalysison Protein Ql (U) Negative [facility] Work Phone: Absolute lymphocyte counton 02-28-2021 Lymphocytes Auto (Unsp spec) [#/Vol] 1.96 10*3/uL 0.83-4.51 [facility] Work Phone: Basophil percentageon 2021 Basophils/100 WBC (Bld) 0.3 % 0-1 [facility] Work Phone: Eosinophils/100 WBC (Bld) 0.5 % 0-5 [facility] Work Phone: Neutrophils (Bld) [#/Vol] 8.2 10*3/uL 2.0-7.7 [facility] Work Phone: Neutrophils/100 WBC (Bld) 74.3 % 47-70 [facility] Work Phone: WBC (Bld) [#/Vol] 11.1 10*3/uL 4.4-11.0 [facility] Work Phone: Blood erythrocytes count (nu mber/volume)on 02-28-2021 RBC (Bld) [#/Vol] 3.99 10*6/uL 4.2-5.4 [facility] Work Phone: Blood hemoglobin measurement (mass/volume)on 02-28-2021 Hemoglobin (Bld) [Mass/Vol] 11.5 g/dL 12.0-15.0 [facility] Work Phone: Blood lymphocytes/100 leukoc yteson 02-28-2021 Lymphocytes/100 WBC (Bld) 17.7 % 19-41 [facility] Work Phone: Blood monocytes/100 leukocyt eson 02-28-2021 Monocytes/100 WBC (Bld) 6.2 % 0-10 [facility] Work Phone: Blood platelet adequacy dete ction by light microscopyon 02-28-2021 Platelets LM Ql (Bld) ADEQUATE ADEQ [facility] Work Phone: Blood platelet mean volumeon 02-28-2021 Platelet mean volume (Bld) [Entitic vol] 12.3 fL 6.2-12.0 [facility] Work Phone: Blood platelet morphology de termination (nominal result)on 02-28-2021 Platelet morphology finding Nom (Bld) LARGE [facility] Work Phone: Determination of erythrocyte mean corpuscular volume (MCV)on 02-28-2021 MCV (RBC) [Entitic vol] 86.5 fL 81-99 [facility] Work Phone: Hematocrit Auto (Bld) [Volum e fraction]on 02-28-2021 Hematocrit (Bld) [Volume fraction] 34.5 % 37-47 [facility] Work Phone: Laboratory - Hematology and Cell countson 02-28-2021 Anisocytosis Ql (Bld) RARE [facility] Work Phone: Erythrocyte distribution width (RBC) [Entitic vol] 39.6 fL 35.1-43.9 [facility] Work Phone: Erythrocyte distribution width (RBC) [Ratio] 12.7 % 11.6-14.6 [facility] Work Phone: Immature granulocytes/100 WBC (Bld) 1.000 % 0.0-0.9 [facility] Work Phone: Comment on above: IG% - Immature Granu locytes (promyelocytes, myelocytes and metamyelocytes) > 1% indicates that a LEFT SHIFT is Present. MCH (RBC) [Entitic mass] 28.8 pg 27.0-32.0 [facility] Work Phone: Nucleated RBC/100 WBC (Bld) [Ratio] 0 % 0-5 [facility] Work Phone: MCHC Auto (RBC) [Mass/Vol]on 02-28-2021 MCHC (RBC) [Mass/Vol] 33.3 g/dL 32-36 [facility] Work Phone: Platelets bldon 02-28-2021 Platelets (Bld) [#/Vol] 156 10*3/uL 150-450 [facility] Work Phone: RBC morphologyon 02-28-2021 RBC morphology finding Nom (Bld) N CHROM NORMAL NORM C&C [facility] Work Phone: Absolute lymphocyte counton 02-18-2021 Lymphocytes Auto (Unsp spec) [#/Vol] 0.59 10*3/uL 0.83-4.51 [facility] Work Phone: Basophil percentageon 2020 Basophil percentage 10-25 SEEN /hpf [facility] Work Phone: Bilirubin [Mass/Vol] 0.20 mg/dL 0.20-1.00 [facility] Work Phone: Comment on above: For patients on eltr ombopag therapy, use of Dimension Sarah Ann TBIL is not recommended. Chloride [Moles/Vol] 105 mmol/L 98-107 [facility] Work Phone: Eosinophils/100 WBC (Bld) 0.1 % 0-5 [facility] Work Phone: Glucose [Mass/Vol] 74 mg/dL 74-106 [facility] Work Phone: Comment on above: Please note revised GLUCOSE reference range effective 2017. Neutrophils (Bld) [#/Vol] 6.3 10*3/uL 2.0-7.7 [facility] Work Phone: Potassium [Moles/Vol] 3.6 mmol/L 3.5-5.1 [facility] Work Phone: Protein [Mass/Vol] 6.8 g/dL 6.4-8.2 [facility] Work Phone: Sodium [Moles/Vol] 136 mmol/L 136-145 [facility] Work Phone: WBC (Bld) [#/Vol] 7.7 10*3/uL 4.4-11.0 [facility] Work Phone: Bilirubin Test strip Ql (U)o n 02-18-2021 Bilirubin Ql (U) Negative Negative [facility] Work Phone: Blood erythrocytes count (nu mber/volume)on 02-18-2021 RBC (Bld) [#/Vol] 3.61 10*6/uL 4.2-5.4 [facility]: Blood hemoglobin measurement (mass/volume)on 02-18-2021 Hemoglobin (Bld) [Mass/Vol] 10.6 g/dL 12.0-15.0 [facility] Work Phone: Blood lymphocytes/100 leukoc yteson 02-18-2021 Lymphocytes/100 WBC (Bld) 7.7 % 19-41 [facility] Work Phone: Blood manual differential co mment interpretation (narrative result)on 12-27-2021 Manual differential comment Ravi (Bld) [Interp] See comment [facility] Work Phone: Comment on above: LYMPHOPENIA NOTED Blood monocytes/100 leukocyt eson 02-18-2021 Monocytes/100 WBC (Bld) 9.6 % 0-10 [facility] Work Phone: Blood platelet adequacy dete ction by light microscopyon 02-18-2021 Platelets LM Ql (Bld) [facility]: Blood platelet mean volumeon 02-18-2021 Platelet mean volume (Bld) [Entitic vol] 12.1 fL 6.2-12.0 [facility] Work Phone: Culture, urineon 02-18-2021 Bacteria identified Cx Nom (U) Positive [facility] Work Phone: Determination of erythrocyte mean corpuscular volume (MCV)on 02-18-2021 MCV (RBC) [Entitic vol] 88.1 fL 81-99 [facility] Work Phone: Hematocrit Auto (Bld) [Volum e fraction]on 02-18-2021 Hematocrit (Bld) [Volume fraction] 31.8 % 37-47 [facility] Work Phone: Ketones Test strip Ql (U)on 02-18-2021 Ketones Ql (U) 150 mg/dl Negative [facility] Work Phone: Comment on above: CRITICAL VALUE *HCRI TICAL VALUE VERIFIED. CALLED TO GARLAND GOTTLIEB (OB)02/18/21 [id number] Ki Garcia.RESULTS READ BACK BY SAME. Laboratory - Chemistry and C hemistry - challengeon 02-18-2021 ALP [Catalytic activity/Vol] 122 U/L 45-117 [facility] Work Phone: ALT [Catalytic activity/Vol] 20 U/L 13-56 [facility] Work Phone: CO2 [Moles/Vol] 22.0 mmol/L 21.0-32.0 [facility] Work Phone: Globulin (S) [Mass/Vol] 4.4 g/dL 2.2-4.2 [facility] Work Phone: Lipase [Catalytic activity/Vol] 101 U/L 73-393 [facility] Work Phone: Urea nitrogen/Creatinine [Mass ratio] 11.9 mg/mg 10-20 [facility] Work Phone: Laboratory - Hematology and Cell countson 02-18-2021 Basophils/100 WBC (Unsp spec) 0.3 % 0-1 [facility] Work Phone: Erythrocyte distribution width (RBC) [Entitic vol] 39.8 fL 35.1-43.9 [facility] Work Phone: Erythrocyte distribution width (RBC) [Ratio] 12.2 % 11.6-14.6 [facility] Work Phone: Immature granulocytes/100 WBC (Bld) 0.700 % 0.0-0.9 [facility] Work Phone: Comment on above: IG% - Immature Granu locytes (promyelocytes, myelocytes and metamyelocytes) > 1% indicates that a LEFT SHIFT is Present. MCH (RBC) [Entitic mass] 29.4 pg 27.0-32.0 [facility] Work Phone: Neutrophils/100 WBC (Bld) 81.6 % 47-70 [facility] Work Phone: Nucleated RBC/100 WBC (Bld) [Ratio] 0 % 0-5 [facility] Work Phone: Laboratory - Microbiology an d Antimicrobial susceptibilityon 02-18-2021 SARS-CoV-2 (COVID-19) RNA JOVITA+probe Ql (Unsp spec) Detected Not Detect [facility] Work Phone: Comment on above: RESULTS CALLED TO SURINDER SOLANO RN 02/18/21 [id number] Jossy Omalley.REPORT READ BACK BY SAME.Normal Reference [...] 02-18-2021 MCHC (RBC) [Mass/Vol] 33.3 g/dL 32-36 [facility] Work Phone: Mucus LM Ql (Urine sed)on Mucus Ql (Urine sed) 0 SEEN /hpf [facility] Work Phone: Nitrite Test strip Ql (U)on 02-18-2021 Nitrite Ql (U) Negative Negative [facility] Work Phone: No Panel Informationon 02-18 Estimated Creatinine Clearance Calc 131.30 ml/min [facility] Work Phone: Estimated GFR (MDRD) Amer 185 mL/min >60 [facility] Work Phone: Comment on above: GFR Calc Estimated GFR (MDRD) Non-Af Amer 153 mL/min >60 [facility] Work Phone: Comment on above: Non- GFR Calc SARS-CoV-2 Antigen (Rapid) SARS-CoV-2 (COVID 19) [facility] Work Phone: Platelets bldon 02-18-2021 Platelets (Bld) [#/Vol] 151 10*3/uL 150-450 [facility] Work Phone: Protein Test strip Ql (U)on 02-18-2021 Protein Ql (U) 15 mg/dl Negative [facility] Work Phone: RBC morphologyon 02-18-2021 RBC morphology finding Nom (Bld) NORM C+C NORMAL NORM C&C [facility] Work Phone: Serum or plasma albumin halle urement (mass/volume)on 02-18-2021 Albumin [Mass/Vol] 2.4 g/dL 3.2-5.0 [facility] Work Phone: Serum or plasma albumin/glob ulin mass ratioon 02-18-2021 Albumin/Globulin [Mass ratio] 0.5 {ratio} 0.9-2.4 [facility] Work Phone: Serum or plasma calcium halle urement (mass/volume)on 02-18-2021 Calcium [Mass/Vol] 8.8 mg/dL 8.5-10.1 [facility] Work Phone: Serum or plasma creatinine m easurement (mass/volume)on 02-18-2021 Creatinine [Mass/Vol] 0.50 mg/dL 0.55-1.02 [facility] Work Phone: Comment on above: The validity of the calculated GFR & GFRAA in patients over 70 years has not been determined. Clinical correlation is essential. Serum or plasma urea nitroge n measurement (mass/volume)on 02-18-2021 Urea nitrogen [Mass/Vol] 6 mg/dL 7-18 [facility] Work Phone: Squamous epithelial cells de tection in urine sediment by light microscopyon 02-18-2021 Epithelial cells.squamous LM Ql (Urine sed) 0-5 SEEN /hpf [facility] Work Phone: Thin prep Papanicolaou smear with manual screeningon 02-18-2021 Thin prep Papanicolaou smear with manual screening 21 U/L 15-37 [facility] Work Phone: Thin prep Papanicolaou smear with manual screening 9 5-15 [facility] Work Phone: Urine blood detectionon 01-24 RBC Ql (U) Negative Negative [facility] Work Phone: RBC Ql (U) 0 SEEN /hpf [facility] Work Phone: Urine clarityon 02-18-2021 Clarity (U) Sl. Cloudy Clear [facility] Work Phone: Urine color determinationon 02-18-2021 Color (U) Yellow Yellow [facility] Work Phone: Urine glucose detectionon Glucose Ql (U) 1000 mg/dl Normal [facility] Work Phone: Urine leukocyte esterase det ection by dipstickon 02-18-2021 Leukocyte esterase Test strip Ql (U) 100 /ul Negative [facility] Work Phone: Urine pHon 02-18-2021 pH (U) 6.5 [pH] [facility] Work Phone: Urine sediment bacteria coun t by microscopy (number/high power field)on 02-18-2021 Bacteria LM.HPF (Urine sed) [#/Area] 2 /[HPF] None Seen [facility] Work Phone: Urine specific gravity measu rementon 02-18-2021 Specific gravity (U) [Rel density] 1.010 [facility] Work Phone: Urobilinogen Auto test strip Ql (U)on 02-18-2021 Urobilinogen Ql (U) Normal mg/dl Normal [facility] Work Phone: Laboratory - Chemistry and C hemistry - challengeon 02-01-2021 Glucose Ql (U) Negative [facility] Work Phone: Laboratory - Urinalysison Protein Ql (U) Negative [facility] Work Phone: Vital Signs Date Time Vital Sign Value Performing Clinician Faci lity 12-26-2024 15:58-0500 Body height 157.[address] Miguel Gonzalez MD Work Phone: [facility] 12-26-2024 15:58-0500 Body mass index (BMI) [Ratio] 32 kg/m2 Dr. Miguel Gonzalez MD Work Phone: [facility] 12-26-2024 15:58-0500 Body weight 79.[address] Miguel Gonzalez MD Work Phone: 6(532)050-177606 [place] [address] 12-26-2024 15:58-0500 Diastolic blood pressure 87 mm[Hg] Dr. Miguel Gonzalez MD Work Phone: 8(420)979-514506 [place] [address] 12-26-2024 15:58-0500 Systolic blood pressure 130 mm[Hg] Dr. Miguel Gonzalez MD Work Phone: 5(764)854-276706 [place] [address] 12-14-2024 15:53-0400 Body height 157.[address] Miguel Gonzalez MD Work Phone: 5(776)717-175106 [place] [address] 12-14-2024 15:53-0400 Body mass index (BMI) [Ratio] 31.6 kg/m2 Dr. Miguel Gonzalez MD Work Phone: [facility] 12-14-2024 15:53-0400 Body weight 78.[address] Miguel Gonzalez MD Work Phone: 5(351)723-832906 [place] [address] 12-14-2024 15:53-0400 Diastolic blood pressure 78 mm[Hg] Dr. Miguel Gonzalez MD Work Phone: [facility] 12-14-2024 15:53-0400 Systolic blood pressure 120 mm[Hg] Dr. Miguel Gonzalez MD Work Phone: 6(273)245-225106 [place] [address] 12-05-2024 08:33-0400 Body mass index (BMI) [Ratio] 30.9 kg/m2 Dr. Miguel Gonzalez MD Work Phone: 0(656)970-765506 [place] [address] 12-05-2024 08:33-0400 Body weight 76.[address] Miguel Gonzalez MD Work Phone: 0(931)000-956806 [place] [address] 12-05-2024 08:33-0400 Diastolic blood pressure 80 mm[Hg] Dr. Miguel Gonzalez MD Work Phone: [facility] 12-05-2024 08:33-0400 Systolic blood pressure 121 mm[Hg] Dr. Miguel Gonzalez MD Work Phone: [facility] 11-16-2024 15:54-0400 Body height 157.[address] Miguel Gonzalez MD Work Phone: 9(979)015-766706 [place] [address] 11-16-2024 15:51-0400 Body mass index (BMI) [Ratio] 30.7 kg/m2 Dr. Miguel Gonzalez MD Work Phone: 8(968)093-867706 [place] [address] 11-16-2024 15:51-0400 Body weight 76.[address] Miguel Gonzalez MD Work Phone: 1(123)171-453906 [place] [address] 11-16-2024 15:51-0400 Diastolic blood pressure 72 mm[Hg] Dr. Miguel Gonzalez MD Work Phone: 5(235)701-658906 [place] [address] 11-16-2024 15:51-0400 Systolic blood pressure 123 mm[Hg] Dr. Miguel Gonzalez MD Work Phone: 8(151)138-035606 [place] [address] 10-26-2024 15:57-0400 Body height 157.[address] Miguel Gonzalez MD Work Phone: 3(239)528-752006 [place] [address] 10-26-2024 15:56-0400 Body mass index (BMI) [Ratio] 30.2 kg/m2 Dr. Miguel Gonzalez MD Work Phone: 5(717)459-041006 [place] [address] 10-26-2024 15:56-0400 Body weight 74.[address] Miguel Gonzalez MD Work Phone: 3(792)406-906406 [place] [address] 10-26-2024 15:56-0400 Diastolic blood pressure 76 mm[Hg] Dr. Miguel Gonzalez MD Work Phone: 1(385)163-693006 [place] [address] 10-26-2024 15:56-0400 Systolic blood pressure 123 mm[Hg] Dr. Miguel Gonzalez MD Work Phone: 0(065)296-154606 [place] [address] 09-30-2024 08:50-0400 Body height 157.[address] Miguel Gonzalez MD Work Phone: [facility] 09-30-2024 08:50-0400 Body mass index (BMI) [Ratio] 29.7 kg/m2 Dr. Miguel Gonzalez MD Work Phone: [facility] 09-30-2024 08:50-0400 Body weight 73.[address] Miguel Gonzalez MD Work Phone: [facility] 09-30-2024 08:50-0400 Diastolic blood pressure 82 mm[Hg] Dr. Miguel Gonzalez MD Work Phone: 2(460)859-899006 [place] [address] 09-30-2024 08:50-0400 Systolic blood pressure 124 mm[Hg] Dr. Miguel Gonzalez MD Work Phone: 3(645)981-225306 [place] [address] 09-06-2024 10:56-0400 Body height 157.[address] Miguel Gonzalez MD Work Phone: 5(718)766-548506 [place] [address] 09-06-2024 10:56-0400 Body mass index (BMI) [Ratio] 29.1 kg/m2 Dr. Miguel Gonzalez MD Work Phone: [facility] 09-06-2024 10:56-0400 Body weight 72.[address] Miguel Gonzalez MD Work Phone: 0(505)801-307506 [place] [address] 09-06-2024 10:56-0400 Diastolic blood pressure 77 mm[Hg] Dr. Miguel Gonzalez MD Work Phone: 6(443)411-161106 [place] [address] 09-06-2024 10:56-0400 Systolic blood pressure 117 mm[Hg] Dr. Miguel Gonzalez MD Work Phone: 9(416)521-769306 [place] [address] 08-03-2024 08:31-0400 Body height 157.[address] Miguel Gonzalez MD Work Phone: 1(942)743-218206 [place] [address] 08-03-2024 08:31-0400 Body mass index (BMI) [Ratio] 28.7 kg/m2 Dr. Miguel Gonzalez MD Work Phone: [facility] 08-03-2024 08:31-0400 Body weight 71.[address] Miguel Gonzalez MD Work Phone: [facility] 08-03-2024 08:31-0400 Diastolic blood pressure 84 mm[Hg] Dr. Miguel Gonzalez MD Work Phone: [facility] 08-03-2024 08:31-0400 Systolic blood pressure 126 mm[Hg] Dr. Miguel Gonzalez MD Work Phone: 4(846)725-083006 [place] [address] 07-07-2024 14:50-0400 Body height 157.[address] Miguel Gonzalez MD Work Phone: 7(280)065-923706 [place] [address] 07-07-2024 14:40-0400 Body mass index (BMI) [Ratio] 28.7 kg/m2 Dr. Miguel Gonzalez MD Work Phone: 2(494)633-162906 [place] [address] 07-07-2024 14:40-0400 Body weight 71.[address] Miguel Gonzalez MD Work Phone: 0(056)725-935906 [place] [address] 07-07-2024 14:40-0400 Diastolic blood pressure 88 mm[Hg] Dr. Miguel Gonzalez MD Work Phone: 1(223)044-749106 [place] [address] 07-07-2024 14:40-0400 Systolic blood pressure 139 mm[Hg] Dr. Miguel Gonzalez MD Work Phone: [facility] 06-29-2024 23:24-0400 Body temperature 97.9 [degF] Dr. Miguel Gonzalez MD Work Phone: [facility] 06-29-2024 23:24-0400 Diastolic blood pressure 92 mm[Hg] Dr. Miguel Gonzalez MD Work Phone: [facility] 06-29-2024 23:24-0400 Heart rate 86 /min Dr. Miguel Gonzalez MD Work Phone: [facility] 06-29-2024 23:24-0400 Respiratory rate 16 /min Dr. Miguel Gonzalez MD Work Phone: [facility] 06-29-2024 23:24-0400 SaO2% (BldA) [Mass fraction] 100 % Dr. Miguel Gonzalez MD Work Phone: [facility] 06-29-2024 23:24-0400 Systolic blood pressure 125 mm[Hg] Dr. Miguel Gonzalez MD Work Phone: [facility] 06-29-2024 21:24-0400 Body height 157.[address] Miguel Gonzalez MD Work Phone: [facility] 06-29-2024 21:24-0400 Body mass index (BMI) [Ratio] 29.1 kg/m2 Dr. Miguel Gonzalez MD Work Phone: 0(700)277-874706 [place] [address] 06-29-2024 21:24-0400 Body weight 72.[address] Miguel Gonzalez MD Work Phone: 7(758)609-638606 [place] [address] 06-22-2024 14:56-0400 Body mass index (BMI) [Ratio] 29.2 kg/m2 Dr. Miguel Gonzalez MD Work Phone: 8(912)342-692006 [place] [address] 06-22-2024 14:56-0400 Body weight 72.[address] Miguel Gonzalez MD Work Phone: 4(372)071-248606 [place] [address] 06-22-2024 14:56-0400 Diastolic blood pressure 80 mm[Hg] Dr. Miguel Gonzalez MD Work Phone: 1(536)609-225106 [place] [address] 06-22-2024 14:56-0400 Systolic blood pressure 123 mm[Hg] Dr. Miguel Gonzalez MD Work Phone: [facility] 06-07-2024 18:52-0400 Body temperature 98 [degF] Dr. Miguel Gonzalez MD Work Phone: 7(276)914-220706 [place] [address] 06-07-2024 18:52-0400 Diastolic blood pressure 79 mm[Hg] Dr. Miguel Gonzalez MD Work Phone: 1(584)653-493706 [place] [address] 06-07-2024 18:52-0400 Heart rate 85 /min Dr. Miguel Gonzalez MD Work Phone: [facility] 06-07-2024 18:52-0400 Respiratory rate 22 /min Dr. Miguel Gonzalez MD Work Phone: [facility] 06-07-2024 18:52-0400 SaO2% (BldA) [Mass fraction] 100 % Dr. Miguel Gonzalez MD Work Phone: [facility] 06-07-2024 18:52-0400 Systolic blood pressure 125 mm[Hg] Dr. Miguel Gonzalez MD Work Phone: [facility] 06-07-2024 13:19-0400 Body height 157.[address] Miguel Gonzalez MD Work Phone: [facility] 06-07-2024 13:19-0400 Body mass index (BMI) [Ratio] 29.8 kg/m2 Dr. Miguel Gonzalez MD Work Phone: [facility] 06-07-2024 13:19-0400 Body weight 73.[address] Miguel Gonzalez MD Work Phone: [facility] 04-24-2023 13:35-0500 Body temperature 98.3 [degF] Dr. Kelle Oconnell Work Phone: [facility] 04-24-2023 13:35-0500 Diastolic blood pressure 55 mm[Hg] Dr. Kelle Oconnell Work Phone: [facility] 04-24-2023 13:35-0500 Heart rate 85 /min Dr. Kelle Oconnell Work Phone: [facility] 04-24-2023 13:35-0500 Respiratory rate 16 /min Dr. Kelle Oconnell Work Phone: [facility] 04-24-2023 13:35-0500 SaO2% (BldA) [Mass fraction] 100 % Dr. Kelle Oconnell Work Phone: [facility] 04-24-2023 13:35-0500 Systolic blood pressure 103 mm[Hg] Dr. Kelle Oconnell Work Phone: [facility] 04-24-2023 12:18-0500 Body height 157.[address] Kelle Oconnell Work Phone: [facility] 04-24-2023 12:18-0500 Body mass index (BMI) [Ratio] 28.3 kg/m2 Dr. Kelle Oconnell Work Phone: [facility] 04-24-2023 12:18-0500 Body weight 70.[address] Kelle Oconnell Work Phone: [facility] 04-24-2023 11:05-0500 Body mass index (BMI) [Ratio] 28.5 kg/m2 Dr. Kelle Oconnell Work Phone: [facility] 04-24-2023 11:05-0500 Body weight 70.[address] Kelle Oconnell Work Phone: [facility] 04-24-2023 11:05-0500 Diastolic blood pressure 86 mm[Hg] Dr. Kelle Oconnell Work Phone: [facility] 04-24-2023 11:05-0500 Systolic blood pressure 138 mm[Hg] Dr. Kelle Oconnell Work Phone: [facility] 03-27-2023 15:09-0500 Body height 157.[address] Kelle Oconnell Work Phone: [facility] 03-27-2023 15:09-0500 Body mass index (BMI) [Ratio] 29.9 kg/m2 Dr. Kelle Oconnell Work Phone: [facility] 03-27-2023 15:09-0500 Body weight 74.[address] Kelle Oconnell Work Phone: [facility] 03-27-2023 15:09-0500 Diastolic blood pressure 80 mm[Hg] Dr. Kelle Oconnell Work Phone: [facility] 03-27-2023 15:09-0500 Systolic blood pressure 115 mm[Hg] Dr. Kelle Oconnell Work Phone: [facility] 03-10-2023 14:42-0500 Body height 157.[address] Kelle Oconnell Work Phone: [facility] 03-10-2023 14:40-0500 Body mass index (BMI) [Ratio] 30.7 kg/m2 Dr. Kelle Oconnell Work Phone: [facility] 03-10-2023 14:40-0500 Body weight 76.[address] Kelle Oconnell Work Phone: [facility] 03-10-2023 14:40-0500 Diastolic blood pressure 76 mm[Hg] Dr. Kelle Oconnell Work Phone: [facility] 03-10-2023 14:40-0500 Systolic blood pressure 122 mm[Hg] Dr. Kelle Oconnell Work Phone: [facility] 12-18-2022 14:00-0400 Body height 157.[address] Kelle Oconnell Work Phone: [facility] 12-18-2022 13:59-0400 Body mass index (BMI) [Ratio] 30.4 kg/m2 Dr. Kelle Oconnell Work Phone: [facility] 12-18-2022 13:59-0400 Body weight 75.[address] Kelle Oconnell Work Phone: [facility] 12-18-2022 13:59-0400 Diastolic blood pressure 74 mm[Hg] Dr. Kelle Oconnell Work Phone: [facility] 12-18-2022 13:59-0400 Systolic blood pressure 112 mm[Hg] Dr. Kelle Oconnell Work Phone: [facility] 05-24-2021 14:05-0400 Body height 157.[address] Kelle Oconnell Work Phone: [facility] Work Phone: 05-24-2021 14:05-0400 Body mass index (BMI) [Ratio] 27.1 kg/m2 Dr. Kelle Oconnell Work Phone: [facility] Work Phone: 05-24-2021 14:05-0400 Body weight 67.[address] Kelle Oconnell Work Phone: [facility] Work Phone: 05-24-2021 14:05-0400 Diastolic blood pressure 74 mm[Hg] Dr. Kelle Oconnell Work Phone: [facility] Work Phone: 05-24-2021 14:05-0400 Systolic blood pressure 112 mm[Hg] Dr. Kelle Oconnell Work Phone: [facility] Work Phone: 04-11-2021 11:46-0500 Body temperature 98.1 [degF] Dr. Kelle Oconnell Work Phone: [facility] Work Phone: 04-11-2021 11:46-0500 Diastolic blood pressure 76 mm[Hg] Dr. Kelle Oconnell Work Phone: [facility] Work Phone: 04-11-2021 11:46-0500 Heart rate 86 /min Dr. Kelle Oconnell Work Phone: [facility] Work Phone: 04-11-2021 11:46-0500 Respiratory rate 16 /min Dr. Kelle Oconnell Work Phone: [facility] Work Phone: 04-11-2021 11:46-0500 SaO2% (BldA) [Mass fraction] 99 % Dr. Kelle Oconnell Work Phone: [facility] Work Phone: 04-11-2021 11:46-0500 Systolic blood pressure 125 mm[Hg] Dr. Kelle Oconnell Work Phone: [facility] Work Phone: 04-09-2021 13:44-0500 Body mass index (BMI) [Ratio] 29.5 kg/m2 Dr. Kelle Oconnell Work Phone: [facility] Work Phone: 04-09-2021 13:44-0500 Body weight 73.[address] Kelle Oconnell Work Phone: [facility] Work Phone: 04-08-2021 14:32-0500 Body mass index (BMI) [Ratio] 29.8 kg/m2 Dr. Kelle Oconnell Work Phone: [facility] Work Phone: 04-08-2021 14:32-0500 Body weight 73.[address] Kelle Oconnell Work Phone: [facility] Work Phone: 04-08-2021 14:32-0500 Diastolic blood pressure 86 mm[Hg] Dr. Kelle Oconnell Work Phone: [facility] Work Phone: 04-08-2021 14:32-0500 Systolic blood pressure 124 mm[Hg] Dr. Kelle Oconnell Work Phone: [facility] Work Phone: 04-02-2021 14:19-0500 Body mass index (BMI) [Ratio] 29.8 kg/m2 Dr. Kelle Oconnell Work Phone: [facility] Work Phone: 04-02-2021 14:19-0500 Body weight 73.[address] Kelle Oconnell Work Phone: [facility] Work Phone: 04-02-2021 14:19-0500 Diastolic blood pressure 82 mm[Hg] Dr. Kelle Oconnell Work Phone: [facility] Work Phone: 04-02-2021 14:19-0500 Systolic blood pressure 132 mm[Hg] Dr. Kelle Oconnell Work Phone: [facility] Work Phone: 03-29-2021 09:11-0500 Body mass index (BMI) [Ratio] 29.6 kg/m2 Dr. Kelle Oconnell Work Phone: [facility] Work Phone: 03-29-2021 09:11-0500 Body weight 73.[address] Kelle Oconnell Work Phone: [facility] Work Phone: 03-29-2021 09:11-0500 Diastolic blood pressure 80 mm[Hg] Dr. Kelle Oconnell Work Phone: [facility] Work Phone: 03-29-2021 09:11-0500 Systolic blood pressure 128 mm[Hg] Dr. Kelle Oconnell Work Phone: [facility] Work Phone: 03-22-2021 14:51-0500 Body mass index (BMI) [Ratio] 29.2 kg/m2 Dr. Kelle Oconnell Work Phone: [facility] Work Phone: 03-22-2021 14:51-0500 Body weight 72.[address] Kelle Oconnell Work Phone: [facility] Work Phone: 03-22-2021 14:51-0500 Diastolic blood pressure 88 mm[Hg] Dr. Kelle Oconnell Work Phone: [facility] Work Phone: 03-22-2021 14:51-0500 Systolic blood pressure 126 mm[Hg] Dr. Kelle Oconnell Work Phone: [facility] Work Phone: 03-14-2021 10:30-0500 Body mass index (BMI) [Ratio] 29.1 kg/m2 Dr. Kelle Oconnell Work Phone: [facility] Work Phone: 03-14-2021 10:30-0500 Body weight 72.[address] Kelle Oconnell Work Phone: [facility] Work Phone: 03-14-2021 10:30-0500 Diastolic blood pressure 82 mm[Hg] Dr. Kelle Oconnell Work Phone: [facility] Work Phone: 03-14-2021 10:30-0500 Systolic blood pressure 130 mm[Hg] Dr. Kelle Oconnell Work Phone: [facility] Work Phone: 02-28-2021 13:02-0500 Body weight 68.[address] Kelle Oconnell Work Phone: [facility] Work Phone: 02-28-2021 13:02-0500 Diastolic blood pressure 70 mm[Hg] Dr. Kelle Oconnell Work Phone: [facility] Work Phone: 02-28-2021 13:02-0500 Systolic blood pressure 110 mm[Hg] Dr. Kelle Oconnell Work Phone: [facility] Work Phone: 02-18-2021 10:09-0500 Body temperature 99 [degF] Dr. Kelle Oconnell Work Phone: [facility] Work Phone: 02-18-2021 10:09-0500 Diastolic blood pressure 69 mm[Hg] Dr. Kelle Oconnell Work Phone: [facility] Work Phone: 02-18-2021 10:09-0500 Heart rate 88 /min Dr. Kelle Oconnell Work Phone: [facility] Work Phone: 02-18-2021 10:09-0500 SaO2% (BldA) [Mass fraction] 98 % Dr. Kelle Oconnell Work Phone: [facility] Work Phone: 02-18-2021 10:09-0500 Systolic blood pressure 104 mm[Hg] Dr. Kelle Oconnell Work Phone: [facility] Work Phone: 02-18-2021 10:06-0500 Body mass index (BMI) [Ratio] 27.4 kg/m2 Dr. Kelle Oconnell Work Phone: [facility] Work Phone: 02-18-2021 10:06-0500 Body weight 68.[address] Kelle Oconnell Work Phone: [facility] Work Phone: 02-01-2021 15:25-0500 Body mass index (BMI) [Ratio] 28.3 kg/m2 Dr. Kelle Oconnell Work Phone: [facility] Work Phone: 02-01-2021 15:25-0500 Body weight 70.[address] Kelle Oconnell Work Phone: [facility] Work Phone: 02-01-2021 15:25-0500 Diastolic blood pressure 78 mm[Hg] Dr. Kelle Oconnell Work Phone: [facility] Work Phone: 02-01-2021 15:25-0500 Systolic blood pressure 130 mm[Hg] Dr. Kelle Oconnell Work Phone: [facility] Work Phone: Encounters Encounter Date Encounter Type Care Provider Facility Start: 01-20-2025 ambulatory Miguel Gonzalez Facility:[facility] Start: 01-04-2025 ambulatory [facility] Facility:[facility] Start: 01-04-2025 End: 01-04-2025 ambulatory [facility] Start: 12-26-2024 End: 12-26-2024 ambulatory Valorie Law Miller [facility] Start: 12-23-2024 End: 12-23-2024 ambulatory [facility] Facility:[facility] Start: 12-14-2024 End: 12-14-[address] Cassandra Lockhart MD -[facility] Work Phone: Start: 12-14-2024 End: 12-14-2024 ambulatory [facility] Start: 12-05-2024 End: 12-05-2024 Patient encounter procedure John FINCH -[facility] Work Phone: Start: 12-05-2024 End: 12-05-[address] Miguel Gonzalez MD Work Phone: [facility] Start: 11-16-2024 End: 11-16-[address] Valorie Ramos DO -[facility] Work Phone: Start: 11-16-2024 End: 11-16-[address] Miguel Gonzalez MD Work Phone: [facility] Start: 11-16-2024 End: 11-16-2024 ambulatory [facility] Facility:[facility] Start: 10-26-2024 End: 10-26-[address] Valorie Ramos DO -[facility] Work Phone: Start: 10-26-2024 End: 10-26-[address] Miguel Gonzalez MD Work Phone: [facility] Start: 09-30-2024 End: 09-30-2024 Patient encounter procedure Indiana Lazo CNM -[facility] Work Phone: Start: 09-30-2024 End: 09-30-[address] Miguel Gonzalez MD Work Phone: -[facility] Start: 09-06-2024 End: 09-06-[address] Valorie Ramos DO -[facility] Work Phone: Start: 09-06-2024 End: 09-06-[address] Miguel Gonzalez MD Work Phone: -[facility] Start: 08-30-2024 End: 08-30-2024 ambulatory [facility] Start: 08-22-2024 End: 08-22-2024 Emergency department patient visit [facility] Start: 08-03-2024 End: 08-03-2024 Patient encounter procedure John FINCH -[facility] Work Phone: Start: 08-03-2024 End: 08-03-[address] Miguel Gonzalez MD Work Phone: [facility] Work Phone: Start: 07-07-2024 End: 07-07-[address] Cassandra Lockhart MD -[facility] Work Phone: Start: 07-07-2024 End: 07-07-[address] Miguel Gonzalez MD Work Phone: [facility] Work Phone: Start: 07-07-2024 End: 07-07-2024 ambulatory Miguel Gonzalez Facility:[facility] Start: 07-01-2024 Non-patient / Non-visit Isa Rios RN -[facility] Work Phone: Start: 07-01-2024 ambulatory Isa Rios Facility :[facility] Start: 06-29-2024 End: 06-29-2024 Emergency department patient visit Dr. Miguel Gonzalez MD Work Phone: -Emergency Department Work Phone: Start: 06-22-2024 End: 06-22-[address] Cassandra Lockhart MD -[facility] Work Phone: Start: 06-22-2024 End: 06-22-2024 ambulatory [facility] Start: 06-07-2024 End: 06-07-2024 Emergency department patient visit Dr. Miguel Gonzalez MD Work Phone: -Emergency Department Work Phone: Start: 04-26-2024 End: 04-26-[address] Miguel Gonzalez MD Work Phone: [facility] Work Phone: Start: 04-26-2024 End: 04-26-2024 Patient encounter [facility] Start: 04-26-2024 End: 04-26-2024 ambulatory [facility] Facility:[facility] Start: 04-24-2023 End: 04-24-[address] Kelle Oconnell Work Phone: [facility] Work Phone: Start: 04-24-2023 End: 04-24-[address] Kelle Oconnell Work Phone: [facility]-Medical Out Work Phone: Start: 04-24-2023 End: 04-24-[address] Kelle Oconnell Work Phone: [facility] Work Phone: Start: 03-27-2023 End: 03-27-[address] Kelle Oconnell Work Phone: [facility] Work Phone: Start: 03-27-2023 End: 03-27-[address] Kelle Oconnell Work Phone: [facility] Work Phone: Start: 03-10-2023 End: 03-10-[address] Kelle Oconnell Work Phone: [facility] Work Phone: Start: 03-10-2023 End: 03-10-[address] K[facility]connell [facility] Work [facility]: Start: 03-10-2023 End: 03-10-[address] Kelle Oconnell Work Phone: [facility] Work Phone: Start: 02-13-2023 End: 02-13-[address] Kelle Oconnell Work Phone: [facility] Work Phone: Start: 02-13-2023 End: 02-13-[address] Kelle Oconnell [facility] Start: 02-11-2023 End: 02-11-[address] Kelle Oconnell Work Phone: [facility] Work Phone: Start: 02-11-2023 End: 02-11-[address] Kelle Oconnell [facility] Start: 12-18-2022 End: 12-18-[address] Kelle Ocnonell Work Phone: [facility] Work Phone: Start: 08-20-2022 End: 08-20-2022 Emergency department patient visit LEATHA CALVIN Facility:[facility] Start: 05-24-2021 End: 05-24-[address] Kelle Oconnell [facility] Start: 05-24-2021 End: 05-24-[address] Kelle Oconnell Work Phone: [facility] Start: 05-16-2021 End: 05-16-[address] Kelle Oconnell Work Phone: [facility] Start: 04-11-2021 Non-patient / Non-visit Dr. Kelle Oconnell Work Phone: [facility] Start: 04-10-2021 Non-patient / Non-visit Dr. Kelle Oconnell Work Phone: [facility] Start: 04-09-2021 Non-patient / Non-visit Dr. Kelle Oconnell Work Phone: [facility] Start: 04-09-2021 End: 04-11-2021 Evaluation and management of inpatient Dr. Kelle Oconnell Work Phone: [facility] Start: 04-08-2021 End: 04-08-[address] Kelle Oconnell Work Phone: [facility] Start: 04-02-2021 End: 04-02-[address] Kelle Oconnell Work Phone: [facility] Start: 03-29-2021 End: 03-29-[address] Kelle Oconnell Work Phone: [facility] Start: 03-22-2021 End: 03-22-[address] Kelle Oconnell Work Phone: [facility]-Laboratory, Specimen Start: 03-22-2021 End: 03-22-[address] Kelle Oconnell Work Phone: [facility] Start: 03-14-2021 End: 03-14-[address] Kelle Oconnell Work Phone: [facility] Start: 03-14-2021 End: 03-14-[address] Kelle Oconnell Work Phone: [facility]-Ultrasound, [facility] Start: 02-28-2021 End: 02-28-[address] Kelle Oconnell Work Phone: [facility]-Laboratory, [facility] Start: 02-18-2021 Non-patient / Non-visit Dr. Kelle Oconnell Work Phone: [facility] Start: 02-18-2021 End: 02-18-[address] Kelle Oconnell Work Phone: [facility] Out[facility] Start: 02-01-2021 End: 02-01-[address] Kelle Oconnell [facility] Phone[facility] Procedures Date Procedure Procedure Detail Performing Clinician Start: 11-16-2024 Serologic test for syphilis Dr. Miguel Gonzalez MD Work Phone: Start: 07-07-2024 Liquid based cervica l cytology screening Dr. Miguel Gonzalez MD Work Phone: Comment on above: NEGATIVE FOR INTRAEP ITHELIAL LESION OR MALIGNANCY. This liquid based Th inPrep(R) pap test was screened withthe use of an image guided system. Start: 07-07-2024 Hepatitis C antibody measurement Dr. Miguel Gonzalez MD Work Phone: Comment on above: Reactive: Presumptiv e evidence of antibodies to HCV. Follow CDC recommendations for supplemental testing.Non-Reactive: Antibodies to HCV were not detected; does not exclude the possibility of exposure to HCVReactive Results are presumptive evidence of antibodies to HCV. Follow CDC recommendations for supplemental testing.Order confirmation testing: HCV Quant by PCR testing - HCVPCR #[id number] Non Reactive: < 0.8 Equivocal: >/= 0.8 to < 1.0 Reactive: >/= 1.0The CDC requires that a reactive/equivocal HCV antibody result be sent out for confirmation. HCV Quant by PCR testing. Start: 07-07-[address] Miguel Gonzalez MD Work Phone: Start: 07-07-[address] Miguel Gonzalez MD Work Phone: Comment on above: Antibody Result: Int erpretationNon-Reactive: Non- ImmuneReactive: ImmuneThe following results were obtained with the [employer] Rubella IgG assay. Results from assays of other manufacturers cannot be used interchangeably. Start: 07-07-2024 Serologic test for syphilis Dr. Miguel Gonzalez MD Work Phone: Start: 07-07-[address] Brown Gonzalez MD Work Phone: Start: 06-07-2024 Urnls dip stick/tabl et reagent auto microscopy Dr. Miguel Gonzalez MD Work Phone: Start: 06-07-2024 Transvaginal obstetr ic ultrasonography Dr. Miguel Gonzalez MD Work Phone: Start: 06-07-[address] Miguel Gonzalez MD Work Phone: Start: 03-10-2023 Urine culture [...] Phone: Start: 02-18-[address] Kelle Oconnell Work Phone: H/O: section History of C-sectio n Dr. Miguel Gonzalez MD Work Phone: Comment on above: x1 H/O: section History of delivery, currently Dr. Miguel Gonzalez MD Work Phone: Comment on above: x1; Desires if smaller , if same size plan RLTCS x1; Desires if smaller infant, if same size plan RLTCS-will need ultrasound at 36 and 39 weeks. c/s 01/20 SM. H/O: section History of delivery, currently Dr. 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 Valorie Ramos DO H/O: section History of delivery, currently Indiana Lazo CNM H/O: section History of delivery, currently Dr. Valorie Ramos DO H/O: section History of delivery, currently Dr. 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 Cassandra Lockhart MD H/O: section History of delivery, currently Dr. Valorie Ramos DO Plan of Treatment Date Care Activity Detail Author Start: 12-26-2024 End: 12-26-2024 Patient encounter procedure History of delivery, currently -[facility] Work Phone: Start: 12-23-2024 Ultrasound scan for growth OB Limited With Biometrics [facility] Start: 12-23-2024 Patient encounter procedure Registered Clinical -Ultrasound [facility] Work Phone: Start: 12-14-2024 End: 12-14-2024 Patient encounter procedure History of delivery, currently -[facility] Work Phone: Start: 12-14-2024 [facility] Start: 11-16-2024 [facility] Start: 07-07-2024 CBC W Auto Differential panel - Blood [facility] Start: 07-07-2024 Hemoglobin A1c/Hemoglobin.total in Blood [facility] Start: 07-07-2024 Hepatitis C antibody measurement [facility] Start: 07-07-2024 Procedure [facility] Start: 07-07-2024 Rubella IgG measurement [facility] Start: 07-07-2024 Serologic test for syphilis [facility] Start: 07-07-2024 [facility] Start: 06-29-2024 [facility] Start: 06-07-2024 [facility] Start: 02-18-2021 Iv infusion hydration each additional hour HYDRATE IV INFUSION ADD-ON [facility] Work Phone: Start: 02-18-2021 Ther proph/dx njx iv push single/1st sbst/drug THER/PROPH/DIAG INJ IV PUSH [facility] Work Phone: Start: 02-18-2021 Therapeutic injection iv push each new drug TX/PRO/DX [facility] Work Phone: CBC W Auto Different ial panel - Blood [facility] CBC W Auto Different ial panel - Blood [facility] Chlamydia deoxyribon ucleic acid detection [facility] Erythrocyte mean cor puscular volume determination [facility] Hematocrit [Volume F raction] of Blood [facility] Hemoglobin [Mass/vol ume] in Blood [facility] Hepatitis B surface antigen measurement [facility] Hepatitis B virus krueger rface Ag [Presence] in Serum [facility] Hepatitis C antibody measurement [facility] HIV 1+2 Ab+HIV1 p24 Ag [Presence] in Serum or Plasma by Immunoassay [facility] Leukocytes [#/volume ] in Blood [facility] Liquid based cervica l cytology screening [facility] Mean corpuscular hem oglobin concentration determination [facility] Mean corpuscular hem oglobin determination [facility] Measurement of gluco se 2 hours after glucose challenge for glucose tolerance test [facility] Neutrophil count [facility] Neutrophil percent differential count [facility] Patient Education [facility] Work Phone: Patient referral [facility] Work Phone: Platelets [#/volume] in Blood [facility] Red blood cell count [facility] Red cell distributio n width determination [facility] Rubella IgG measurement [facility] Serologic test for syphilis [facility] Treponema sp Ab [Pre sence] in Serum [facility] Ultrasound scan for [place] [facility] P[place] Date Payer Category Payer Self-pay [id number] 2020 Unknown [id number] 1990 Unknown [id number] 2.16. [id number] Unknown [id number] 2.16.8 [id number] Unknown [id number] 2.16.8 [id number] Unknown [id number] 2.16.8 [id number] Unknown [id number] 2.16.8 [id number] Unknown [id number] 2.16.8 [id number] Unknown [id number] 2.16.8 [id number] Unknown [id number] 2.16.8 [id number] Unknown [id number] 2.16.8 40.1.587966.3.579.2.462 Unknown [id number] 2.16.8 40.1.202256.3.579.2.462 Unknown [id number] 2.16.8 [id number] Unknown [id number] 2.16.8 40.1.108345.3.579.2.462 Unknown [id number] 2.16.8 40.1.196310.3.579.2.462 Unknown [id number] 2.16.8 [id number] Unknown [id number] 2.16.8 40.1.858552.3.579.2.462 Unknown [id number] 2.16.8 [id number] Unknown [id number] 2.16.8 [id number] Unknown [id number] 2.16.8 [id number] Unknown [id number] 2.16.8 [id number] Unknown [id number] 2.16.8 [id number] Unknown [id number] 2.16.8 [id number] Social History Date Type Detail Facility Start: 05-24-2021 End: 04-24-2023 Tobacco smoking status MIIS Unknown if ever smoked [facility] Start: 1990 Sex Assigned At Female [facility] Start: 10-09-2023 End: 08-03-2024 Tobacco smoking status NHIS Never smoked tobacco (finding) [facility] Start: 05-10-2024 End: 06-07-2024 Sex Female (finding) [facility] Patient currentl y [facility] Mental Status Date Assessment Result Facility 04-24-2023 Cognitive function Voice/Name [facility] Work Phone: Clinical Notes 06-07-2024 to 12-14-2024 Note Date & Type Note Facility 12-14-2024 Progress note [facility] 12-14-2024 Progress note Note Date/Time December 14, 2024 5:22pm [facility] [address], [address] [place] [address] OFFICE VISIT Date of Service: 12/14/24 MR#: [id number] Acct: [id number] Name: LEONOR CAMACHO Rep #: [id number] : 1990 Provider: Dr. Cecil Lockhart MD Age/Sex: 34/F Location: [facility] Status: Signed Intake Vital Signs 09/30/24 08:50 12/05/24 08:33 12/14/24 15:53 Height 5 ft 2 in 5 ft 2 in 5 ft 2 in Weight: 173 lb 4 oz BMI 31.6 BP 120/78 Intake Visit Reasons: 34wk ob Medical Technician Assistant Required: No Is patient in pain?: No Allergies No Known Allergies Allergy (Verified 12/14/24 15:54) Medications ?Medication ?Instructions ?Recorded ?Confirmed ?Type NK 07/07/24 12/14/24 History Last Menstrual Period: 01/11/23 Zika: Zika virus screening: Negative : Yes Have you fallen in the past year?: No PFSH PFSH Medical History History of shoulder dystocia PMDD (premenstrual dysphoric disorder) Anemia PCOS (polycystic ovarian syndrome) Surgical History History of H/O oral surgery Family History Father Diabetes Type 1 Mother Hypertension Grandfather Cancer bladder Social History adopted: No household members: spouse and children number of children: 2 current occupational status: employed 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 Chantelle Hyman Delivery Date: 04/09/21 Last Updated by: Giselle Hoffmann IOL shoulder dystocia Delivery Date: 10/02/23 Last Updated by: Valencia Hawkins Primary section due to history of shoulder dystocia. Anemia, GBS + HPI 34wk ob Details: LEONOR CAMACHO is a 34 year old who presents for routine OB visit. OB Visit JERZY Calculator Estimated Delivery Date Method Current WG Current Estimate 01/26/25 Ultrasound #1 33w 6d Expected Delivery Route/Plan RLTCS with SM success rate is 78% Specific Issue/Plans Covid status: [] Flu vaccine: declines Tdap vaccine: declines Rhogam: NA LARC form signed: yes Problem list reviewed and updated with the most current plan of care details and appropriate orders placed. Relevant counseling for the gestational age provided. Continue routine care and follow up unless otherwise noted in visit notes/problem list details Initial Weight: Not Recorded Date -?-?-?-?-?-?-?-?-?-?-?-?- EGA Weight BP Urine Prot -?-?-?-?-?-?-?-?-?-?-?-?- Glucose FHR FuHt Pres Dilation -?-?-?-?-?-?-?-?-?-?-?-?- Effaced St Visit Note 07/07/24 -?--?-?-?-?-?-?-?-?-?-?-?- 11w 0d 157 lb 2 oz 139/88 -?-?-?-?-?-?-?-?-?-?-?-?- 180 -?-?-?-?-?-?-?-?-?-?-?-?- SM- CRL 3.9cm co ns with LMP 08/03/24 -?-?-?-?-?-?-?-?-?-?-?-?- 14w 6d 157 lb 126/84 Negative -?-?-?-?-?-?-?-?-?-?-?-?- Negative 163 -?-?-?-?-?-?-?-?-?-?-?-?- MH-No VB. Nausea improved. Br US confirm FHT 09/06/24 -?-?-?-?-?-?-?-?-?-?-?-?- 19w 5d 159 lb 6 oz 117/77 Nega tive -?-?-?-?-?-?-?-?-?-?-?-?- Negative 160 -?-?-?-?-?-?-?-?-?-?-?-?- JCeci- ramirez discuss ion about success rate of [...] good fm. many questions about doing a 09/03/25 -?--?-?-?-?-?-?-?-?-?-?-?- 26w 6d 165 lb 123/76 Negative -?-?-?-?-?-?-?-?-?-?-?-?- Negative 147 28 -?-?-?-?-?-?-?-?-?-?-?-?- JV- no lof, vagi nal bleeding, or dec fm. glucola next visit. 11/16/24 -?-?-?-?-?-?-?-?-?-?-?-?- 29w 6d 168 lb 1 oz 123/72 -?-?-?-?-?-?-?-?-?-?-?-?- 135 30 -?-?-?-?-?-?-?-?-?-?-?-?- JV- glucola alexandra y. has some intermittent contractions and some urinary leaking with coughing. wants to try to . planning for rpt section if no on 01/27/25 with SM. 12/05/24 -?-?-?-?-?-?-?-?-?-?-?-?- 32w 4d 169 lb 5 oz 121/80 Nega tive -?-?-?-?-?-?-?-?-?-?-?-?- Negative 143 32 -?-?-?-?-?-?-?-?-?-?--?-?- -NO VB, LOF or reg CTX. No concerns 12/14/24 -?-?-?-?-?-?-?-?-?-?-?-?- 33w 6d 173 lb 4 oz 120/78 -?-?-?-?-?-?-?-?-?-?-?-?- 130 34 -?-?-?-?-?-?-?-?-?-?-?-?- SM- no vb lof go od fm no reuglar ctx but having some duy monsivais ACOG First Trimester First Trimester: Desire for , Alcohol, Tobacco Cessation, Illicit/Recreational Drug/Substance Use, Intimate Partner Violence, Barriers to care, Unstable Housing, Communication Barriers, Environmental/Work Hazards, Anticipated Course of Care, Toxoplasmosis Precations, Use of Any medications, Sexual activity, Exercise, Dental Care, Sauna/Hot tub use, Seat Belt use, Childbirth classes/Hospital facilities, , Travel, Indications for Ultrasound and Screening for Aneuploidy Second Trimester Second Trimester: Signs and Symptoms of Labor, Selecting a care provider, Reproductive Life Planning & Contreception, Care Planning, Tobacco Cessation, Depression/Anxiety and Intimate Partner Violence Third Trimester Third Trimester: Pain Management Plans, Labor support person(s), Immediate Larc, Signs and Symptoms of Preeclampsia, Feeding Yes , Family Medical Leave or Disability Forms and Intimate Partner Violence Coding Level of Care Code OB Routine Diagnoses Supervision of high risk in third trimester O09.93 Trimester: third trimester 33 weeks gestation of Z3A.33 Weeks of gestation: 33 weeks History of delivery, currently O34.219 History of group B Streptococcus (GBS) infection Z86.19 PCOS (polycystic ovarian syndrome) E28.2 History of shoulder dystocia Assessment and Plan Assessment and Plan (1) Supervision of high-risk : Status: Acute Qualifiers: Trimester: third trimester Qualified Code(s): O09.93 - Supervision of high risk , unspecified, third trimester Comment: [id number]; JERZY 01/26/25; PC: Aden; : Boogie (2) : Status: Acute Qualifiers: Weeks of gestation: 33 weeks Qualified Code(s): Z3A.33 - 33 weeks gestation of Comment: NIPT low risk, nl anatomy. (3) History of delivery, currently : Status: Acute Comment: x1; Desires if smaller , if same size plan RLTCS -will need ultrasound at 36 and 39 weeks. c/s 01/20 SM. (4) History of group B Streptococcus (GBS) infection: Status: Acute Comment: Last (5) PCOS (polycystic ovarian syndrome): Status: Acute Comment: NOT on Metformin (6) History of shoulder dystocia: Status: Acute Comment: 1st ; csec w/second d/t this Orders: Orders POC Urinalysis 2 Dip (Clinic) Today Clinical Quality Measures Falls Risk Screening/Assistive Devices Have you fallen in the past year?: No 12/14/24 1622 <Electronically signed by Cassandra ernst MD> Date _ Cassandra Lockhart MD [facility] Signature: Date (if applicable) CC: ~ [facility] Work Phone: [phone] [facility] [address] [place] [address], [address] [place] [id number] OFFICE VISIT Date of Service: 12/05/24 MR#: [id number] Acct: [id number] Name: LEONOR CAMACHO Rep #: [id number] : 1990 Provider: JOSETTE Ariza Age/Sex: 34/F Location: [facility] Status: Signed Intake Vital Signs 09/30/24 08:50 11/16/24 15:54 12/05/24 08:33 Height 5 ft 2 in 5 ft 2 in 5 ft 2 in Weight: 169 lb 5 oz BMI 30.9 BP 121/80 H Intake Visit Reasons: 32wk ob Medical Technician Assistant Required: No Is patient in pain?: No Allergies No Known Allergies Allergy (Verified 12/05/24 08:33) Medications ?Medication ?Instructions ?Recorded ?Confirmed ?Type NK 07/07/24 12/05/24 History Last Menstrual Period: 01/11/23 Zika: Zika virus screening: Negative : Yes PFSH PFSH Medical History History of shoulder dystocia PMDD (premenstrual dysphoric disorder) Anemia PCOS (polycystic ovarian syndrome) Surgical History History of H/O oral surgery Family History Father Diabetes Type 1 Mother Hypertension Grandfather Cancer bladder Social History adopted: No household members: spouse and children number of children: 2 current occupational status: employed 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 Chantelle Hyman Delivery Date: 04/09/21 Last Updated by: Giselle Hoffmann IOL shoulder dystocia Delivery Date: 10/02/23 Last Updated by: Valencia Hawkins Primary section due to history of shoulder dystocia. Anemia, GBS + HPI 32wk ob Details: LEONOR CAMACHO is a 34 year old who presents for routine OB visit. OB Visit JERZY Calculator Estimated Delivery Date Method Current WG Current Estimate 01/26/25 Ultrasound #1 32w 4d Expected Delivery Route/Plan RLTCS with SM success rate is 78% Specific Issue/Plans Covid status: [] Flu vaccine: declines Tdap vaccine: declines Rhogam: NA LARC form signed: yes Problem list reviewed and updated with the most current plan of care details and appropriate ordersplaced. Relevant counseling for the gestational age provided. Continue routine care and follow up unless otherwise noted in visit notes/problem list details Initial Weight: Not Recorded Date -?-?-?-?-?-?-?-?-?-?-?-?- EGA Weight BP Urine Prot -?-?-?-?-?-?-?-?-?-?-?-?- Glucose FHR FuHt Pres Dilation -?--?-?-?-?-?-?-?-?-?-?-?- Effaced St Visit Note 07/07/24 -?-?-?-?-?-?-?-?-?-?-?-?- 11w 0d 157 lb 2 oz 139/88 -?-?-?-?-?-?-?-?-?-?-?-?- 180 -?-?-?-?-?-?-?-?-?-?-?-?- SM- CRL 3.9cm co ns with LMP 08/03/24 -?-?-?-?-?-?-?-?-?-?-?-?- 14w 6d 157 lb 126/84 Negative -?-?-?-?-?-?-?-?-?-?-?-?- Negative 163 -?-?-?-?-?-?-?-?-?-?-?-?- MH-No VB. Nausea improved. Br US confirm FHT 09/06/24 -?-?-?-?-?-?-?-?-?-?-?-?- 19w 5d 159 lb 6 oz 117/77 Nega tive -?-?-?-?-?-?-?-?-?-?-?-?- Negative 160 -?-?-?-?-?-?-?-?-?-?-?-?- CRISTOPHER guzmán discuss ion about success rate of 78%. [...] lb 123/76 Negative -?-?-?-?-?-?-?-?-?-?-?-?- Negative 147 28 -?-?-?-?-?-?-?-?-?-?-?-?- JV- no lof, vagi nal bleeding, or dec fm. glucola next visit. 11/16/24 -?-?-?-?-?-?-?-?-?-?-?-?- 29w 6d 168 lb 1 oz 123/72 -?-?-?-?-?-?-?-?-?-?-?-?- 135 30 -?-?-?-?-?-?-?-?-?-?-?-?- JV- glucola alexandra y. has some intermittent contractions and some urinary leaking with coughing. wants to try to . planning for rpt section if no on 01/27/25 with SM. 12/05/24 -?-?-?-?-?-?-?-?--?-?-?-?- 32w 4d 169 lb 5 oz 121/80 Nega tive -?-?-?-?-?-?-?-?-?-?-?-?- Negative 143 32 -?-?-?-?-?-?-?-?-?-?-?-?- MH-NO VB, LOF or reg CTX. No concerns ACOG First Trimester First Trimester: Desire for , Alcohol, Tobacco Cessation, Illicit/Recreational Drug/Substance Use, Intimate Partner Violence, Barriers to care, Unstable Housing, Communication Barriers, Environmental/Work Hazards, Anticipated Course of Care, Toxoplasmosis Precations, Use of Any med ications, Sexual activity, Exercise, Dental Care, Sauna/Hot tub use, Seat Belt use, Childbirth classes/Hospital facilities, , Travel, Indications for Ultrasound and Screening for Aneuploidy Second Trimester Second Trimester: Signs and Symptoms of Labor, Selecting a care provider, Reproductive Life Planning & Contreception, Care Planning, Tobacco Cessation, Depression/Anxiety and Intimate Partner Violence Third Trimester Third Trimester: Pain Management Plans, Labor support person(s), Immediate Larc, Signs and Symptoms of Preeclampsia, Feeding Yes , Family Medical Leave or Disability Forms and Intimate Partner Violence ROS Const Reports system reviewed and no additional complaints, except as documented GI Denies abdominal pain, Denies nausea and Denies vomiting Exam Const General: cooperative Nutritional Appearance: well nourished GI Palpation: soft, nontender and other (gravid) Results POC Urinalysis 2 Dip (Clinic) Office Urine Glucose Negative Last Edit by Rebekah Ely on 12/05/24 08 :34 Office Urine Protein Negative Last Edit by Rebekah Ely on 12/05/24 08 :34 Coding Level of Care Code OB Routine Diagnoses Supervision of high risk in third trimester O09.93 Trimester: third trimester 34 weeks gestation of Z3A.34 Weeks of gestation: 34 weeks History of delivery, currently O34.219 History of group B Streptococcus (GBS) infection Z86.19 History of shoulder dystocia Assessment and Plan Assessment and Plan (1) Supervision of high-risk : Status: Acute Qualifiers: Trimester: third trimester Qualified Code(s): O09.93 - Supervision of high risk , unspecified, third trimester Comment: [id number]; JERZY 01/26/25; PC: Alfred & Devang; : Boogie (2) : Status: Acute Qualifiers: Weeks of gestation: 34 weeks Qualified Code(s): Z3A.34 - 34 weeks gestation of Comment: NIPT low risk, nl anatomy. (3) History of delivery, currently : Status: Acute Comment: x1; Desires if smaller , if same size plan RLTCS -will need ultrasound at 36 and 39 weeks. c/s 01/20 SM. (4) History of group B Streptococcus (GBS) infection: Status: Acute Comment: Last (5) History of shoulder dystocia: Status: Acute Comment: 1st ; csec w/second d/t this Orders: Orders POC Urinalysis 2 Dip (Clinic) Today Plan problem list reviewed and updated for most current plan of care and appropriate orders placed. Relevant counseling for the gestational age appropriate provided and ACOG education checklist updated. Continue routine care and follow up. 12/05/24 0850 s PREPARATION ROOM MANAGER PREPARATION ROOM MANAGER-C> Date _ John [place] PREPARATION ROOM MANAGER PREPARATION ROOM MANAGER-C Cosigner Signature: Date (if applicable) CC: ~ [facility] [id number] [facility] [address] [place] [address], [address] [place] [address] OFFICE VISIT Date of Service: 11/16/24 MR#: [id number] Acct: [id number] Name: LEONOR CAMACHO Rep #: [id number] : 1990 Provider: Dr. Kinga Ramos DO Age/Sex: 33/F Location: [facility] Status: Signed Intake Vital Signs 09/30/24 08:50 10/26/24 15:57 11/16/24 15:51 11/16/24 15:54 Height 5 ft 2 in 5 ft 2 in 5 ft 2 in 5 ft 2 in Weight: 168 lb 1 oz BMI 30.7 BP 123/72 H Intake Visit Reasons: 30wk ob Chief Complaint: 30 Week OB Medical Technician Assistant Required: No Is patient in pain?: No Allergies No Known Allergies Allergy (Verified 11/16/24 15:51) Medications ?Medication ?Instructions ?Recorded ?Confirmed ?Type NK 07/07/24 11/16/24 History Last Menstrual Period: 01/11/23 Zika: Zika [...] 2 current occupational status: employed 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 Chantelle Hyman Delivery Date: 04/09/21 Last Updated by: Giselle HAYES shoulder dystocia Delivery Date: 10/02/23 Last Updated by: Valencia Hawkins Primary section due to history of shoulder dystocia. Anemia, GBS + HPI 30wk ob Details: LEONOR CAMACHO is a 33 year old who presents for routine OB visit. OB Visit JERZY Calculator Estimated Delivery Date Method Current WG Current Estimate 01/26/25 Ultrasound #1 29w 6d Expected Delivery Route/Plan RLTCS with SM [...] 159 lb 6 oz 117/77 Nega tive -?-?-?--?-?-?-?-?-?-?-?-?- Negative 160 -?-?-?-?-?-?-?-?-?-?-?-?- JV- long discuss ion about success rate of 78%. [...] lb 123/76 Negative -?-?-?-?-?-?-?-?-?-?-?-?- Negative 147 28 -?-?-?-?-?-?-?-?-?--?-?-?- JV- no lof, vagi nal bleeding, or dec fm. glucola next visit. 11/16/24 -?-?-?-?-?-?-?-?-?-?-?-?- 29w 6d 168 lb 1 oz 123/72 -?-?-?-?-?-?-?-?-?-?-?--?- 135 30 -?-?-?-?-?-?-?-?-?-?-?-?- JV- glucola alexandra y. has some intermittent contractions and some urinary leaking with coughing. wants to try to . planning for rpt section if no on 01/27/25 with SM. ACOG First Trimester First Trimester: Desire for [...] Tobacco Cessation, Depression/Anxiety and Intimate Partner Violence Coding Level of Care Code OB Routine Diagnoses 29 weeks gestation of Z3A.29 Weeks of gestation: 29 weeks Supervision of high risk in second trimester O09.92 Trimester: second trimester History of delivery, currently O34.219 History of group B Streptococcus (GBS) infection Z86.19 PCOS (polycystic ovarian syndrome) E28.2 Lactating mother Z39.1 History of shoulder dystocia Assessment and Plan Assessment and Plan (1) : Status: Acute Qualifiers: Weeks of gestation: 29 weeks Qualified Code(s): Z3A.29 - 29 weeks gestation of Comment: NIPT low risk, nl anatomy. (2) Supervision of high-risk : Status: Acute Qualifiers: Trimester: second trimester Qualified Code(s): O09.92 - Supervision of high risk , unspecified, second trimester Comment: [id number]; JERZY 01/26/25; PC: Aden; : Boogie (3) History of delivery, currently : Status: Acute Comment: x1; Desires if smaller , if same size plan RLTCS -will need ultrasound at 36 and 39 weeks. (4) History of group B Streptococcus (GBS) infection: Status: Acute Comment: Last (5) PCOS (polycystic ovarian syndrome): Status: Acute Comment: NOT on Metformin (6) Lactating mother: Status: Acute Comment: Still nursing 5x/day; desires to get baby to 1 year (September) (7) History of shoulder dystocia: Status: Acute Comment: 1st ; csec w/second d/t this Orders: Orders POC Urinalysis 2 Dip (Clinic) Today 11/16/24 1624 e Velde DO> Date _ Valorie Ramos DO Cosigner Signature: Date (if applicable) CC: ~ [facility]09-24-2025 Progress note Author Valorie Miller [facility] Note Date/Time November 16, 2024 4:24pm [facility] [address] [place] [address], [address] [place] [address] OFFICE VISIT Date of Service: 11/16/24 MR#: [id number] Acct: [id number] Name: LEONOR CAMACHO Rep #: [id number] : 1990 Provider: Dr. Kinga Ramos DO Age/Sex: 33/F Location: [facility] Status: Signed Intake Vital Signs 09/30/24 08:50 10/26/24 15:57 11/16/24 15:51 11/16/24 15:54 Height 5 ft 2 in 5 ft 2 in 5 ft 2 in 5 ft 2 in Weight: 168 lb 1 oz BMI 30.7 BP 123/72 H Intake Visit Reasons: 30wk ob Chief Complaint: 30 Week OB Medical Technician Assistant Required: No Is patient in pain?: No Allergies No Known Allergies Allergy (Verified 11/16/24 15:51) Medications ?Medication ?Instructions ?Recorded ?Confirmed ?Type NK 07/07/24 11/16/24 History Last Menstrual Period: 01/11/23 Zika: Zika [...] 2 current occupational status: employed 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 Chantelle Hyman Delivery Date: 04/09/21 Last Updated by: Giselle Hoffmann IOL shoulder dystocia Delivery Date: 10/02/23 Last Updated by: Valencia Hawkins Primary section due to history of shoulder dystocia. Anemia, GBS + HPI 30wk ob Details: LEONOR CAMACHO is a 33 year old who presents for routine OB visit. OB Visit JERZY Calculator Estimated Delivery Date Method Current WG Current Estimate 01/26/25 Ultrasound #1 29w 6d Expected Delivery Route/Plan RLTCS with SM [...] 159 lb 6 oz 117/77 Nega tive -?-?-?--?-?-?-?-?-?-?-?-?- Negative 160 -?-?-?-?-?-?-?-?-?-?-?-?- GEN- ramirez discuss ion [...] lb 123/76 Negative -?-?-?-?-?-?-?-?-?-?-?-?- Negative 147 28 -?-?-?-?-?-?-?-?-?--?-?-?- JV- no lof, vagi nal bleeding, or dec fm. glucola next visit. 11/16/24 -?-?-?-?-?-?-?-?-?-?-?-?- 29w 6d 168 lb 1 oz 123/72 -?-?-?-?-?-?-?-?-?-?-?--?- 135 30 -?-?-?-?-?-?-?-?-?-?-?-?- JV- glucola alexandra y. has some intermittent contractions and some urinary leaking with coughing. wants to try to . planning for rpt section if no on 01/27/25 with SM. ACOG First Trimester First Trimester: Desire for [...] Tobacco Cessation, Depression/Anxiety and Intimate Partner Violence Coding Level of Care Code OB Routine Diagnoses 29 weeks gestation of Z3A.29 Weeks of gestation: 29 weeks Supervision of high risk in second trimester O09.92 Trimester: second trimester History of delivery, currently O34.219 History of group B Streptococcus (GBS) infection Z86.19 PCOS (polycystic ovarian syndrome) E28.2 Lactating mother Z39.1 History of shoulder dystocia Assessment and Plan Assessment and Plan (1) : Status: Acute Qualifiers: Weeks of gestation: 29 weeks Qualified Code(s): Z3A.29 - 29 weeks gestation of Comment: NIPT low risk, nl anatomy. (2) Supervision of high-risk : Status: Acute Qualifiers: Trimester: second trimester Qualified Code(s): O09.92 - Supervision of high risk , unspecified, second trimester Comment: [id number]; JERZY 01/26/25; PC: Aden; : Boogie (3) History of delivery, currently : Status: Acute Comment: x1; Desires if smaller infant, if same size plan RLTCS -will need ultrasound at 36 and 39 weeks. (4) History of group B Streptococcus (GBS) infection: Status: Acute Comment: Last (5) PCOS (polycystic ovarian syndrome): Status: Acute Comment: NOT on Metformin (6) Lactating mother: Status: Acute Comment: Still nursing 5x/day; desires to get baby to 1 year (September) (7) History of shoulder dystocia: Status: Acute [facility] Orders: Orders POC Urinalysis 2 Dip (Clinic) Today 11/16/24 5069 <Electronically signed by Valorie Golden DO> Date _ Valorie Ramos DO [facility] Signature: Date (if applicable) CC: ~ [facility] Work Phone: 1(438) 303-786909-03-2025 [facility] [address] [place] [address], [address] [place] [address] OFFICE VISIT Date of Service: 10/26/24 MR#: [id number] Acct: [id number] Name: LEONOR CAMACHO Rep #: [id number] : 1990 Provider: Dr. 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 Date Name GA/Weeks Outcome Route Bth Weight Gen Labor Lgth A nesthesia Del Locatn Provider FOB 04/09/21 Alfred 39 live - full term 7lbs 9 ounces Female epidural [facility] Chantelle Hyman 10/02/23 Devang 39 live - full term 7lbs 10oz Female spinal [facility] Dr. Chantelle Hyman Delivery Date: 04/09/21 [...] 117/77 Nega tive -?-?-?-?--?-?-?-?-?-?-?-?- Negative 160 -?-?-?-?-?-?-?-?-?-?-?-?- JCeci- ramirez discuss ion about success rate of [...] high risk , unspecified, second trimester Comment: [id number]; JERZY 01/26/25; PC: Alfred & Devang; : [...] Urinalysis 2 Dip (Clinic) Today 10/26/24 1617 e Angela DO> Date _ Valorie Ramos DO Cosigner Signature: Date (if applicable) CC: ~ [facility]09-03-2025 Progress note Author Valorie Miller [facility] Note Date/Time October 26, 2024 4:17pm [facility] [address] [place] [address], [address] [place] [address] OFFICE VISIT Date of Service: 10/26/24 MR#: [id number] Acct: [id number] Name: LEONOR CAMACHO Rep #: [id number] : 1990 Provider: Dr. 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 Chantelle Hyman Delivery Date: 04/09/21 [...] 117/77 Nega tive -?-?-?-?--?-?-?-?-?-?-?-?- Negative 160 -?-?-?-?-?-?-?-?-?-?-?-?- JV- long discuss ion about success rate of 78%. [...] high risk , unspecified, second trimester Comment: [id number]; JERZY 01/26/25; PC: Aden; : Boogie (2) [...] Golden DO> Date _ Valorie Ramos DO Cosigner Signature: Date (if applicable) CC: ~ [facility] Work Phone: 1(974) 106-194808-08-2025 [facility] [address] [place] [address], [address] [place] [address] OFFICE VISIT Date of Service: 09/30/24 MR#: [id number] Acct: [id number] Name: LEONOR CAMACHO Rep #: [id number] : 1990 Provider: RICHIE Lazo Age/Sex: 33/F Location: [facility] Status: Signed Intake Vital Signs 08/03/24 08:31 09/06/24 10:56 09/30/24 08:50 Height 5 ft 2 in 5 ft 2 in 5 ft 2 in Weight: 157 lb 159 lb 6 oz 162 lb 4 oz BMI 28.7 29.1 29.7 BP 126/84 H 117/77 124/82 H Intake Visit Reasons: 23wk ob Chief Complaint: 23wk OB Medical Technician Assistant Required: No Is patient in pain?: No [...] 2 current occupational status: employed 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 Chantelle Hyman Delivery Date: 04/09/21 [...] Supervision of high risk in second trimester O Trimester: second trimester 23 weeks gestation of Z3A.23 Weeks of gestation: 23 weeks History of delivery, currently O34.219 History of group B Streptococcus (GBS) infection Z86.19 PCOS (polycystic ovarian syndrome) E28.2 Lactating mother Z39.1 History of shoulder dystocia Assessment and Plan Assessment and Plan (1) Supervision of high-risk : Status: Acute Qualifiers: Trimester: second trimester Qualified Code(s): O. - Supervision of high risk , unspecified, second trimester Comment: [id number]; JERZY 01/26/25; PC: Aden; : Boogie (2) [...] for screening for diabetes mellitus HIV 09/23/24 O. - Supervision of high risk , unspecified, second trimester Syphilis Antibodies 09/23/24 O09. - Supervision of high risk , unspecified, [...] exam or sooner if needed. 09/30/24 0913 naseem QUIROZ> Date _ Indiana Lazo CNM Cosigner Signature: Date (if applicable) CC: ~ [facility]07-15-2025 Evaluation note* Diagnosis Onset Date Resolution Status Admit Date History of delivery , currently acute September 06 10:42am History of group B Streptococcus (GBS) infection acute 2024 10:42am History of shoulder dystocia acute September 06, 2024 10:42am PCOS (polycystic ovarian syndrome) acute September 06, 2024 10:42am acute September 06 10:42am Supervision of high-risk acute September 06, 2024 10:42am Lactating mother resolved August 10:42am History of delivery , currently acute September 30, 2 025 8:46am History of group B Streptococcus (GBS) infection acute 2024 8:46am History of shoulder dystocia acute September 30, 2024 8:46am PCOS (polycystic ovarian syndrome) acute September 30, 2024 8:46am acute September 30 8:46am Supervision of high-risk acute September 30, 2024 8:46am Lactating mother resolved September 302024 8:46am History of delivery , currently acute October 3:45pm History of group B Streptococcus (GBS) infection acute Se pt2024 3:45pm History of shoulder dystocia acute October 26, 2024 3:45pm PCOS (polycystic ovarian syndrome) acute October 26, 025 3:45pm acute October 26, 2024 3:45pm Supervision of high-risk acute October 26, 025 3:45pm Lactating mother resolved Septembe r 2024 3:45pm History of delivery , currently acute October 3:47pm History of group B Streptococcus (GBS) infection acute Se ptember 2024 3:47pm History of shoulder dystocia acute November 16, 2024 3:47pm PCOS (polycystic ovarian syndrome) acute November 16, 2024 3:47pm acute October 3:47pm Supervision of high-risk acute November 16, 2024 3:47pm Lactating mother resolved Septembe r 2024 3:47pm History of delivery , currently acute December 05, 2024 8:30am History of group B Streptococcus (GBS) infection acute Oc tober 2024 8:30am History of shoulder dystocia acute December 05, 2024 8:30am acute December 05, 2024 8:30am Supervision of high-risk acute December 05 8:30am History of delivery , currently acute December 14, 2024 3:50pm History of group B Streptococcus (GBS) infection acute Oc tober 2024 3:50pm History of shoulder dystocia acute December 14, 2024 3:50pm PCOS (polycystic ovarian syndrome) acute December 14 3:50pm acute December 14, 2024 3:50pm Supervision of high-risk acute December 14 3:50pm [facility] Work Phone: 1(317) 919-582307-15-2025 Evaluation note* Diagnosis Onset Date Resolution Status Admit Date History of delivery , currently acute September 06 10:42am History of shoulder dystocia acute September 06, 2024 10:42am PCOS (polycystic ovarian syndrome) acute September 06, 2024 10:42am acute September 06 10:42am Supervision of high-risk acute September 06, 2024 10:42am Lactating mother resolved August 10:42am History of group B Streptococcus (GBS) infection deleted Ju ly 2024 10:42am History of delivery , currently acute September 30, 025 8:46am History of shoulder dystocia acute September 30, 2024 8:46am PCOS (polycystic ovarian syndrome) acute September 30, 2024 8:46am acute September 30 8:46am Supervision of high-risk acute September 30, 2024 8:46am Lactating mother resolved September 302024 8:46am History of group B Streptococcus (GBS) infection deleted Au 2024 8:46am History of delivery , currently acute October 3:45pm History of shoulder dystocia acute October 26, 2024 3:45pm PCOS (polycystic ovarian syndrome) acute October 26, 025 3:45pm acute October 26, 2024 3:45pm Supervision of high-risk acute October 26 025 3:45pm Lactating mother resolved 2024 3:45pm History of group B Streptococcus (GBS) infection deleted Se pt2024 3:45pm History of delivery , currently acute October 3:47pm History of shoulder dystocia acute November 16, 2024 3:47pm PCOS (polycystic ovarian syndrome) acute November 16, 2024 3:47pm acute October 3:47pm Supervision of high-risk acute November 16, 2024 3:47pm Lactating mother resolved r 2024 3:47pm History of group B Streptococcus (GBS) infection deleted Se ptember 2024 3:47pm History of delivery , currently acute December 05, 2024 8:30am History of shoulder dystocia acute December 05, 2024 8:30am acute December 05, 2024 8:30am Supervision of high-risk acute December 05 8:30am History of group B Streptococcus (GBS) infection deleted Oc tober 2024 8:30am History of delivery , currently acute December 14, 2024 3:50pm History of shoulder dystocia acute December 14, 2024 3:50pm PCOS (polycystic ovarian syndrome) acute December 14 3:50pm acute December 14, 2024 3:50pm Supervision of high-risk acute December 14 3:50pm History of group B Streptococcus (GBS) infection deleted Amado tober 2024 3:50pm History of delivery , currently acute December 26, 2024 3:49pm History of shoulder dystocia acute December 26, 2024 3:49pm PCOS (polycystic ovarian syndrome) acute December 26 3:49pm acute December 26, 2024 3:49pm Supervision of high-risk acute December 26 3:49pm [facility] Work Phone: 1(532) 231-286006-11-2025 Evaluation note* Diagnosis Onset Date Resolution Status Admit Date History of delivery , currently acute August [...] of delivery , currently acute September 30, 025 8:46am History of group B Streptococcus [...] of group B Streptococcus (GBS) infection acute Se pt2024 3:45pm History of shoulder dystocia acute October 26, 2024 3:45pm Lactating mother acute 2024 3:45pm PCOS (polycystic ovarian syndrome) acute October 26, 025 3:45pm acute October 26, 2024 3:45pm Supervision of high-risk acute October 26 025 3:45pm History of delivery , currently acute October 3:47pm History of group B Streptococcus (GBS) infection acute Se ptember 2024 3:47pm History of shoulder dystocia acute November 16, 2024 3:47pm Lactating mother acute Octemb2024 3:47pm PCOS (polycystic ovarian syndrome) acute November 16, 2024 3:47pm acute October 3:47pm Supervision of high-risk acute November 16, 2024 3:47pm [facility] Work Phone: 1(256) 350-763605-15-2025 Evaluation note* Diagnosis Onset Date Resolution Status [...] high-risk a cute July 07, 2024 2:38pm [facility] Work Phone: 1(585) 168-125705-15-2025 Evaluation note* Diagnosis Onset Date Resolution Status [...] of high-risk acute August 03, 2024 8:22am [facility] Work Phone: 1(913) 478-958605-15-2025 Evaluation note* Diagnosis Onset Date Resolution Status [...] of high-risk acute September 06, 2024 10:42am [facility] Work Phone: 1(700) 906-343105-15-2025 Evaluation note* Diagnosis Onset Date Resolution Status [...] of delivery , currently acute September 30, 025 8:46am History of group B Streptoco ccus (GBS) infection acute September 30, 2024 8:46am History of shoulder dystocia acute September 30, 2024 8:46am Lactating mother acute September 302024 8:46am PCOS (polycystic ovarian syndrome) acute September 30, 2024 8:46am acute September 30 8:46am Supervision of high-risk acute September 30, 2024 8:46am [facility] Work Phone: 1(724) 631-728405-15-2025 Evaluation note* Diagnosis Onset Date Resolution Status Admit Date History of delivery , currently acute July 07 2:38pm History of group B Streptococcus (GBS) infection acute Ma 2024 2:38pm History of shoulder dystocia acute [...] 2 025 8:46am History of group B Streptococcus (GBS) infection acute Au 2024 8:46am History of shoulder dystocia acute September 30, 2024 8:46am Lactating mother acute September 302024 8:46am PCOS (polycystic ovarian syndrome) acute September 30, 2024 8:46am acute September 30 8:46am Supervision of high-risk acute September 30, 2024 8:46am History of delivery , currently acute October 3:45pm History of group B Streptococcus (GBS) infection acute Se ptember 2024 3:45pm History of shoulder dystocia acute October 26, 2024 3:45pm Lactating mother acute Septembe r 2024 3:45pm PCOS (polycystic ovarian syndrome) acute October 26 025 3:45pm acute October 26, 2024 3:45pm Supervision of high-risk acute October 26 025 3:45pm [facility] Work Phone: 1(256) 475-469905-15-2025 Progress [facility] [address] [place] [address], [address] [place] [address] OFFICE VISIT Date of Service: 07/07/24 MR#: [id number] Acct: [id number] Name: LEONOR CAMACHO Rep #: [id number] : 1990 Provider: Dr. 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 Note Date/Time July 07, 2024 3:13p [facility] [address] [place] [address], [address] [place] [address] OFFICE VISIT Date of Service: 07/07/24 MR#: [id number] Acct: [id number] Name: LEONOR CAMACHO Rep #: [id number] : 1990 Provider: Dr. 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 Miguel Gonzalez MD Status:REG E R Location: ED HPI History of Present Illness Chief Complaint: Abd Pain Narrative Narrative: 33-year-old female, G3, P2 presents at the direction of her SENIOR SOFTWARE ENGINEER's at [place] for evaluation for possible ectopic . She [...] tried to make an appointment with her SENIOR SOFTWARE ENGINEER but they states that she needs to be ruled out for an ectopic given that she has been having a few weeks of rightpelvic pain that is intermittent. 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 Valorie Adams with SENIOR SOFTWARE ENGINEER who agrees with outpatient follow-up in approximately 2 weeks. At this point in time, I feel she can be discharged to follow-up with SENIOR SOFTWARE ENGINEER. She will return with vaginal bleeding, increased [...] 79.4 H Lymph % (Auto) 13.3 L Garvin % (Auto) 6.3 Eos % (Auto) 0.2 [...] Albumin/Globulin Ratio 1.4 Lipase 37 HCG, Quant 89438 H Serum , Qual POSITIVE Urine Color Yellow Urine Clarity Sl. Cloudy Urine pH 7.0 Ur Specific [place] 1.010 Urine Protein 15 H Urine Glucose [...] IMPRESSION: UNREMARKABLE FIRST TRIMESTER ULTRASOUND. Reading Location: [id number] Management Discussion w/another healthcare provider: Offal Roller (Dr. Adams, SENIOR SOFTWARE ENGINEER) Discharge Plan Triage Chief Complaint: Abd Pain [...] to finish Rx Primary Care Provider: Miguel Gonzalez Referrals: Valorie Ramos DO [Med Staff - Active Staff] - 1-2 Weeks Miguel Gonzalez MD [Primary Care Provider] - Activity Restrictions/Additional Instructions: Follow-up with the SENIOR SOFTWARE ENGINEER in 2 weeks. Return with vaginal bleeding, increased pain, new or worsening symptoms. Start vitamins. Print Language: Maori Disposition Disposition: Home, Self Care What to do if you have Problems For any increased pain, shortness of breath, bleeding, nausea or vomiting, chestpain, or any unexpected problems, contact your Primary Care Provider. Call [facility] ([phone]) or report tothe closest Emergency Room. Call 911 if necessary. 06/07/24 1851 Cosigner Signature (if applicable): CC: Dr. Miguel Gonzalez MD ~ Signed [facility]04-15-2025 Radiology Diagnostic study note [facility] Imaging Services [address] [place], [place] [address] Transvaginal w/Preg US MR#: [id number] Acct: [id number] Name: LEONOR CAMACHO Rep #: [id number] : 1990 F 33 From: Bharath Mirza MD PCP: Dr. Miguel Gonzalez MD Status: REG E R Study:Transvaginal w/Preg US Date of Exam: 06/07/24 Exam# [id number] Ordering Dr: Isidro Angulo PREPARATION ROOM MANAGER-C PROCEDURE: TRANSVAGINAL W/PREG US 06/07/2024 REASON FOR [...] and unremarkable. DIMENSIONS: Parameter Measurement / EGA [place] Rump Length: 5 mm/6 weeks 3 days Gestational Sac: 20 mm/6 weeks 6 days Yolk Sac: 3 mm/ ESTIMATED GESTATIONAL AGE: By Ultrasound: 6 weeks 5 days By LMP: 5 weeks 2 days ESTIMATED DATE OF DELIVERY: By Ultrasound: 01/26/2025 By LMP: 02/05/2025 US/Transvaginal w/Preg US IMPRESSION: UNREMARKABLE FIRST TRIMESTER ULTRASOUND. Reading Location: [id number] CC: JOSETTE Moran; Dr. Miguel Gonzalez MD ~ Technical Training Specialist: Signed [facility]04-15-2025 Discharge summary Author Heriberto Frazier [facility] Note Date/Time June 07, 2024 6:5 1pm [facility] Medical Records Department [address] [place] [address] Emergency Department Summary 06/07/24 MR#: [id number] Acct: [id number] Name: LEONOR CAMACHO Rep #:[id number] : 1990 33 From: Heriberto Frazier MD PCP: Dr. Miguel Gonzalez MD Status:REG E R Location: ED HPI History of Present Illness Chief Complaint: Abd Pain Narrative Narrative: 33-year-old female, G3, P2 presents at the direction of her SENIOR SOFTWARE ENGINEER's at [place] for evaluation for possible ectopic . She [...] tried to make an appointment with her SENIOR SOFTWARE ENGINEER but they states that she needs to be ruled out for an ectopic given that she has been having a few weeks of rightpelvic pain that is intermittent. 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 Neelam send for culture. Quantitative beta-hCG is 47,126. I reviewed the radiology report of the transvaginal ultrasound. It shows an intrauterine with 1 gestational sac/fetus with an average heart rate of 129 bpm. I discussed patient with Dr. Valorie Adams with SENIOR SOFTWARE ENGINEER who agrees with outpatient follow-up in approximately 2 weeks. At this point in time, I feel she can be discharged to follow-up with SENIOR SOFTWARE ENGINEER. She will return with vaginal bleeding, increased [...] 79.4 H Lymph % (Auto) 13.3 L Garvin % (Auto) 6.3 Eos % (Auto) 0.2 [...] Albumin/Globulin Ratio 1.4 Lipase 37 HCG, Quant 19812 H Serum , Qual POSITIVE Urine Color Yellow Urine Clarity Sl. Cloudy Urine pH 7.0 Ur Specific [place] 1.010 Urine Protein 15 H Urine Glucose [...] IMPRESSION: UNREMARKABLE FIRST TRIMESTER ULTRASOUND. Reading Location: [id number] Management Discussion w/another healthcare provider: Offal Roller (Dr. Adams, SENIOR SOFTWARE ENGINEER) Discharge Plan Triage Chief Complaint: Abd Pain [...] to finish Rx Primary Care Provider: Miguel Gonzalez Referrals: Valorie Ramos DO [Med Staff - Active Staff] - 1-2 Weeks Miguel Gonzalez MD [Primary Care Provider] - Activity Restrictions/Additional Instructions: Follow-up with the SENIOR SOFTWARE ENGINEER in 2 weeks. Return with vaginal bleeding, increased pain, new or worsening symptoms. Start vitamins. Print Language: Maori Disposition Disposition: Home, Self Care What to do if you have Problems For any increased pain, shortness of breath, bleeding, nausea or vomiting, chestpain, or any unexpected problems, contact your Primary Care Provider. Call [facility] ([phone]) or report to the closest Emergency Room. Call 911 if necessary. 06/07/24 1851 <Electronically signed by Heriberto Frazier MD> Cosigner Signature (if applicable): CC: Dr. Miguel Gonzalez MD ~ Signed [facility] Work Phone: Evaluation note* Diagnosis Onset [...] delivery resolved Supervision of normal first resolved [facility] Work Phone: evaluation note* Diagnosis Onset Date Resolution Status PMDD (premenstrual dysphoric disorder) acute [facility] Work Phone: evaluation note* Diagnosis Onset Date Resolution Status PMDD (premenstrual dysphoric disorder) acute Anemia acute PMDD (premenstrual dysphoric disorder) acute acute Supervision of high-risk acute [facility] Work Phone: Evaluation note* Diagnosis Onset Date Resolution Status PMDD (premenstrual dysphoric disorder) acute Anemia acute PMDD (premenstrual dysphoric disorder) acute acute Supervision of high-risk acute Anemia acute PMDD (premenstrual dysphoric disorder) acute acute Supervision of high-risk acute [facility] Work Phone: Evaluation note* Diagnosis Onset Date Resolution Status Anemia acute PMDD (premenstrual dysphoric disorder) acute acute Supervision of high-risk acute Anemia acute PMDD (premenstrual dysphoric disorder) acute acute Supervision of high-risk acute Anemia acute Nausea and vomiting during acute PMDD (premenstrual dysphoric disorder) acute acute Supervision of high-risk acute [facility] Work Phone: Evaluation noteNo assessment information available [facility] Work Phone: Evaluation note* Diagnosis Onset [...] high-risk a cute July 07, 2024 2:38pm [facility] Work Phone: Hospital Discharge instructions Additional Instructions Follow-up with the SENIOR SOFTWARE ENGINEER in 2 weeks. Return with vaginal bleeding, increased pain, new or worsening symptoms. Start vitamins.[facility] Work Phone: Progress note Author Indiana Lazo [facility] Note Date/Time September 30, 2024 9:1 3am [facility] [address] [place] [address], [address] [place] [address] OFFICE VISIT Date of Service: 09/30/24 MR#: [id number] Acct: [id number] Name: LEONOR CAMACHO Rep #: [id number] : 1990 Provider: RICHIE Lazo Age/Sex: 33/F Location: [facility] Status: Signed Intake Vital Signs 08/03/24 08:31 09/06/24 10:56 09/30/24 08:50 Height 5 ft 2 in 5 ft 2 in 5 ft 2 in Weight: 157 lb 159 lb 6 oz 162 lb 4 oz BMI 28.7 29.1 29.7 BP 126/84 H 117/77 124/82 H Intake Visit Reasons: 23wk ob Chief Complaint: 23wk OB Medical Technician Assistant Required: No Is patient in pain?: No [...] 2 current occupational status: employed 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 Chantelle Hyman Delivery Date: 04/09/21 Last Updated by: Giselle Shun IOL shoulder dystocia Delivery Date: 10/02/23 Last [...] VB. Nausea improved. Br US confirm FHT 07/15/25 -?-?-?-?-?-?-?-?-?-?-?-?- 19w 5d 159 lb 6 oz 117/77 Nega tive -?-?-?-?-?-?-?-?-?-?-?-?- Negative 160 -?-?-?-?-?-?-?-?-?-?-?-?- JCeci- ramirez discuss ion about success rate of [...] Supervision of high risk in second trimester O09. Trimester: second trimester 23 weeks gestation of [...] high risk , unspecified, second trimester Comment: [id number]; JERZY 01/26/25; PC: Alfred & Devang; : [...] for screening for diabetes mellitus HIV 09/23/24 O09. - Supervision of high risk , unspecified, second trimester Syphilis Antibodies 09/23/24 O09. - Supervision of high risk , unspecified, [...] Cosigner Signature: Date (if applicable) CC: ~ [facility] Work Phone: Progress note Author John Sigalatings [facility] Note Date/Time December 05, 2024 8 :48am [facility] [place] [facility] [address], [address] [place] [address] OFFICE VISIT Date of Service: 12/05/24 MR#: [id number] Acct: [id number] Name: LEONOR CAMACHO Rep #: [id number] : 1990 Provider: JOSETTE Ariza Age/Sex: 34/F Location: [facility] Status: Signed Intake Vital Signs 09/30/24 08:50 11/16/24 15:54 12/05/24 08:33 Height 5 ft 2 in 5 ft 2 in 5 ft 2 in Weight: 169 lb 5 oz BMI 30.9 BP 121/80 H Intake Visit Reasons: 32wk ob Medical Technician Assistant Required: No Is patient in pain?: No Allergies No Known Allergies Allergy (Verified 12/05/24 08:33) Medications ?Medication ?Instructions ?Recorded ?Confirmed ?Type NK 07/07/24 12/05/24 History Last Menstrual Period: 01/11/23 Zika: Zika virus screening: Negative : Yes PFSH PFSH Medical History History of shoulder dystocia PMDD (premenstrual dysphoric disorder) Anemia PCOS (polycystic ovarian syndrome) Surgical History History of H/O oral surgery Family History Father Diabetes Type 1 Mother Hypertension Grandfather Cancer bladder Social History adopted: No household members: spouse and children number of children: 2 current occupational status: employed 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 Chantelle Hyman Delivery Date: 04/09/21 Last Updated by: Giselle Hoffmann IOL shoulder dystocia Delivery Date: 10/02/23 Last Updated by: Valencia Hawkins Primary section due to history of shoulder dystocia. Anemia, GBS + HPI 32wk ob Details: LEONOR CAMACHO is a 34 year old who presents for routine OB visit. OB Visit JERZY Calculator Estimated Delivery Date Method Current WG Current Estimate 01/26/25 Ultrasound #1 32w 4d Expected Delivery Route/Plan RLTCS with SM success rate is 78% Specific Issue/Plans Covid status: [] Flu vaccine: declines Tdap vaccine: declines Rhogam: NA LARC form signed: yes Problem list reviewed and updated with the most current plan of care details and appropriate orders placed. Relevant counseling for the gestational age provided. Continue routine care and follow up unless otherwise noted in visit notes/problem list details Initial Weight: Not Recorded Date -?-?-?-?-?-?-?-?-?-?-?-?- EGA Weight BP Urine Prot -?-?-?-?-?-?-?-?-?-?-?-?- Glucose FHR FuHt Pres Dilation -?--?-?-?-?-?-?-?-?-?-?-?- Effaced St Visit Note 07/07/24 -?-?-?-?-?-?-?-?-?-?-?-?- 11w [...] lb 123/76 Negative -?-?-?-?-?-?-?-?-?-?-?-?- Negative 147 28 -?-?-?-?-?-?-?-?-?-?-?-?- JV- no lof, vagi nal bleeding, or dec fm. glucola next visit. 11/16/24 -?-?-?-?-?-?-?-?-?-?-?-?- 29w 6d 168 lb 1 oz 123/72 -?-?-?-?-?-?-?-?-?-?-?-?- 135 30 -?-?-?-?-?-?-?-?-?-?-?-?- JV- glucola alexandra y. has some intermittent contractions and some urinary leaking with coughing. wants to try to . planning for rpt section if no on 01/27/25 with SM. 12/05/24 -?-?-?-?-?-?-?-?--?-?-?-?- 32w 4d 169 lb 5 oz 121/80 Nega tive -?-?-?-?-?-?-?-?-?-?-?-?- Negative 143 32 -?-?-?-?-?-?-?-?-?-?-?-?- MH-NO VB, LOF or reg CTX. No concerns ACOG First Trimester First Trimester: Desire for , Alcohol, Tobacco Cessation, Illicit/Recreational Drug/Substance Use, Intimate Partner Violence, Barriers to care, Unstable Housing, Communication Barriers, Environmental/Work Hazards, Anticipated Course of Care, Toxoplasmosis Precations, Use of Any medications, Sexual activity, Exercise, Dental Care, Sauna/Hot tub use, Seat Belt use, Childbirth classes/Hospital facilities, , Travel, Indications for Ultrasound and Screening for Aneuploidy Second Trimester Second Trimester: Signs and Symptoms of Labor, Selecting a care provider, Reproductive Life Planning & Contreception, Care Planning, Tobacco Cessation, Depression/Anxiety and Intimate Partner Violence Third Trimester Third Trimester: Pain Management Plans, Labor support person(s), Immediate Larc, Signs and Symptoms of Preeclampsia, Infant Feeding Yes , Family Medical Leave or Disability Forms and Intimate Partner Violence ROS Const Reports system reviewed and no additional complaints, except as documented GI Denies abdominal pain, Denies nausea and Denies vomiting Exam Const General: cooperative Nutritional Appearance: well nourished GI Palpation: soft, nontender and other (gravid) Results POC Urinalysis 2 Dip (Clinic) Office Urine Glucose Negative Last Edit by Rebekah Ely on 12/05/24 08 :34 Office Urine Protein Negative Last Edit by Rebekah Ely on 12/05/24 08 :34 Coding Level of Care Code OB Routine Diagnoses Supervision of high risk in third trimester O09.93 Trimester: third trimester 34 weeks gestation of Z3A.34 Weeks of gestation: 34 weeks History of delivery, currently O34.219 History of group B Streptococcus (GBS) infection Z86.19 History of shoulder dystocia Assessment and Plan Assessment and Plan (1) Supervision of high-risk : Status: Acute Qualifiers: Trimester: third trimester Qualified Code(s): O09.93 - Supervision of high risk , unspecified, third trimester Comment: [id number]; JERZY 01/26/25; PC: Aden; : Boogie (2) : Status: Acute Qualifiers: Weeks of gestation: 34 weeks Qualified Code(s): Z3A.34 - 34 weeks gestation of Comment: NIPT low risk, nl anatomy. (3) History of delivery, currently : Status: Acute Comment: x1; Desires if smaller infant, if same size plan RLTCS -will need ultrasound at 36 and 39 weeks. c/s 01/20 . (4) History of group B Streptococcus (GBS) infection: Status: Acute Comment: Last (5) History of shoulder dystocia: Status: Acute Comment: 1st ; csec w/second d/t this Orders: Orders POC Urinalysis 2 Dip (Clinic) Today Plan problem list reviewed and updated for most current plan of care and appropriate orders placed. Relevant counseling for the gestational age appropriate provided and ACOG education checklist updated. Continue routine care and follow up. 12/05/24 0850 <Electronically signed by John Hasting s PREPARATION ROOM MANAGER PREPARATION ROOM MANAGER-C> Date _ John Ariza PREPARATION ROOM MANAGER PREPARATION ROOM MANAGER-C Cosigner Signature: Date (if applicable) CC: ~ [facility] Work Phone: Reason for referral (narrative)No reason for referral information availableW[facility] Work Phone: Chief Complaint and Reason for [...] of high-risk Chief Complaint E ORDER LMP 11/9 12 WK OB 16 WK OB, vomiting [...] Amb Documentation July 01, 2024 10:55a m [place] [facility], unsure of LMP, saw ED for [...] 30, 2024 8:4 6am Supervision of high-risk [facility] 2024 8:46am History of delivery, currently October 26, 2024 3:45pm History of group B Streptococcus (GBS) i nfection October 26, 2024 3:45pm History of shoulder dystocia October [id number] 3:45pm Lactating mother October 26, 2024 3:45pm PCOS (polycystic ovarian syndrome) [facility] 2024 3:45pm October 26, 2024 3:45pm Supervision of high-risk [facility] 2024 3:45pm Chief Complaint Admit Date 15wk OB August 03, 2024 8:22 am 20 wk ob September 06, 2024 10:4 2am 23wk ob September 30, 2024 8:4 6am 27wk ob/glucose October 26, 2024 3:45pm 30wk ob November 16, 2024 3:47pm Reason for Visit Admit Date History of delivery, currently August 03, 2024 [...] 30, 2024 8:4 6am Supervision of high-risk 2024 8:46am History of delivery, currently October 26, 2024 3:45pm History of group B Streptococcus (GBS) i nfection October 26, 2024 3:45pm History of shoulder dystocia October [id number] 3:45pm Lactating mother October 26, 2024 3:45pm PCOS (polycystic ovarian syndrome) [facility] 2024 3:45pm October 26, 2024 3:45pm Supervision of high-risk [facility] 2024 3:45pm History of delivery, currently November 16, 2024 3:47pm History of group B Streptococcus (GBS) i nfection November 16, 2024 3:47pm History of shoulder dystocia October [id number] 3:47pm Lactating mother November 16, 2024 3:47pm PCOS (polycystic ovarian syndrome) [facility] 2024 3:47pm November 16, 2024 3:47pm Supervision of high-risk [facility] 2024 3:47pm Chief Complaint Admit Date 20 wk ob September 06, 2024 10:4 2am 23wk ob September 30, 2024 8:4 6am 27wk ob/glucose October 26, 2024 3:45pm 30wk ob November 16, 2024 3:47pm 32wk ob December 05, 2024 8 :30am 34wk ob December 14, 2024 3 :50pm Reason for Visit Admit Date History of delivery, currently September 06, 2024 10:42am History of group B Streptococcus (GBS) i nfection September 06, 2024 10:42am History of shoulder dystocia September 06, 2024 10:42am PCOS (polycystic ovarian syndrome) September 06, 2024 10:42am September 06, 2024 10:4 2am Supervision of high-risk September 06, 2024 10:42am Lactating mother September 06, 2024 10:4 2am History of delivery, currently September 30, 2024 8:46am History of group B Streptococcus (GBS) i nfection September 30, 2024 8:46am History of shoulder dystocia September 30, 2024 8:46am PCOS (polycystic ovarian syndrome) [facility] 2024 8:46am September 30, 2024 8:4 6am Supervision of high-risk [facility] 2024 8:46am Lactating mother September 30, 2024 8:4 6am History of delivery, currently October 26, 2024 3:45pm History of group B Streptococcus (GBS) i nfection October 26, 2024 3:45pm History of shoulder dystocia October [id number] 3:45pm PCOS (polycystic ovarian syndrome) [facility] 2024 3:45pm October 26, 2024 3:45pm Supervision of high-risk [facility] 2024 3:45pm Lactating mother October 26, 2024 3:45pm History of delivery, currently November 16, 2024 3:47pm History of group B Streptococcus (GBS) i nfection November 16, 2024 3:47pm History of shoulder dystocia October [id number] 3:47pm PCOS (polycystic ovarian syndrome) [facility] 2024 3:47pm November 16, 2024 3:47pm Supervision of high-risk [facility] 2024 3:47pm Lactating mother November 16, 2024 3:47pm History of delivery, currently December 05, 2024 8:30am History of group B Streptococcus (GBS) i nfection December 05, 2024 8:30am History of shoulder dystocia November 8:30am December 05, 2024 8 :30am Supervision of high-risk [facility] 2024 8:30am History of delivery, currently December 14, 2024 3:50pm History of group B Streptococcus (GBS) i nfection December 14, 2024 3:50pm History of shoulder dystocia November 3:50pm PCOS (polycystic ovarian syndrome) [facility] 2024 3:50pm December 14, 2024 3 :50pm Supervision of high-risk Oct[facility] 2024 3:50pm Chief Complaint Admit Date 20 wk ob September 06, 2024 10:4 2am 23wk ob September 30, 2024 8:4 6am 27wk ob/glucose October 26, 2024 3:45pm 30wk ob November 16, 2024 3:47pm 32wk ob December 05, 2024 8 :30am 34wk ob December 14, 2024 3 :50pm HEALTH December 23, 2024 5 :37pm 36w ob December 26, 2024 3 :49pm Reason for Visit Admit Date History of delivery, currently September 06, 2024 10:42am History of shoulder dystocia September 06, 2024 10:42am PCOS (polycystic ovarian syndrome) September 06, 2024 10:42am September 06, 2024 10:4 2am Supervision of high-risk September 06, 2024 10:42am Lactating mother September 06, 2024 10:4 2am History of group B Streptococcus (GBS) i nfection September 06, 2024 10:42am History of delivery, currently September 30, 2024 8:46am History of shoulder dystocia September 30, 2024 8:46am PCOS (polycystic ovarian syndrome) [facility] 2024 8:46am September 30, 2024 8:4 6am Supervision of high-risk [facility] 2024 8:46am Lactating mother September 30, 2024 8:4 6am History of group B Streptococcus (GBS) i nfection September 30, 2024 8:46am History of delivery, currently October 26, 2024 3:45pm History of shoulder dystocia October [id number] 3:45pm PCOS (polycystic ovarian syndrome) [facility] 2024 3:45pm October 26, 2024 3:45pm Supervision of high-risk [facility] 2024 3:45pm Lactating mother October 26, 2024 3:45pm History of group B Streptococcus (GBS) i nfection October 26, 2024 3:45pm History of delivery, currently November 16, 2024 3:47pm History of shoulder dystocia October [id number] 3:47pm PCOS (polycystic ovarian syndrome) [facility] 2024 3:47pm November 16, 2024 3:47pm Supervision of high-risk [facility] 2024 3:47pm Lactating mother November 16, 2024 3:47pm History of group B Streptococcus (GBS) i nfection November 16, 2024 3:47pm History of delivery, currently December 05, 2024 8:30am History of shoulder dystocia November 8:30am December 05, 2024 8 :30am Supervision of high-risk Oct[facility] 2024 8:30am History of group B Streptococcus (GBS) i nfection December 05, 2024 8:30am History of delivery, currently December 14, 2024 3:50pm History of shoulder dystocia November 3:50pm PCOS (polycystic ovarian syndrome) [facility] 2024 3:50pm December 14, 2024 3 :50pm Supervision of high-risk Oct[facility] 2024 3:50pm History of group B Streptococcus (GBS) i nfection December 14, 2024 3:50pm History of delivery, currently December 26, 2024 3:49pm History of shoulder dystocia December 3:49pm PCOS (polycystic ovarian syndrome) [facility] 2024 3:49pm December 26, 2024 3 :49pm Supervision of high-risk [facility] elieser 3rd, 2025 3:49pm Family History Relationship Condition Age at Onset Recorded Date/T meenakshi father Diabetes mellitus Unknown mother Hypertension Unknown grandfather Malignant neoplasm Unknown Advance Directives Advance Directive Response Recorded Date/ Time Living Will No April 09, 2 022 4:25pm Power of Card Player No April 09, 2021 4:25pm Advance Directive Response Recorded Date/ Time Living Will No April 09, 2 022 3:25pm Power of Card Player No April 09, 2021 3:25pm Advance Directive Response Recorded Date/ Time Living Will No June 07, 2024 4:28pm Do you have a Healthcare Power of Card Player? No June 07, 2024 4:28pm Advance Directive Response Recorded Date/ Time Living Will No June 07, 2024 4:28pm Do you have a Healthcare Power of Card Player? No June 07, 2024 4:28pm Do you have a Healthcare Power of Card Player? No June 29, 2024 11:15pm Advance Directive Response Recorded Date/ Time Do you have a Healthcare Power of Card Player? No June 29, 2024 11:15pm Summary Purpose Additional Source Comments Goals (unrecognized section and content) Type Care Experience svdLabor Preferences -labor support person: Graciela intervention preferences: no specificpain management options preferred: epiduralcut cord/dad catch: yesbreastfeeding: yesPP control planned: discussed possible routes of delivery and associated risks: []special requests: [] Care Experience svdLabor Preferences -CB/BF classes: []labor support person: []labor intervention preferences: pain management options preferred: epiduralcut cord/dad catch: cut cord.: []PP control planned: []discussed possible routes of delivery and associated risks: , OVD, c/s special requests: [] Care Experience RLTCS with SMvbac krueger ccess rate is 78% INFORMATION SOURCE (unrecogn ized section and content) DATE CREATED AUTHOR 08/22/2022 [facility] DATE CREATED AUTHOR AUTHOR'S ORGANIZ ATION 02/26/2024 [facility] DATE CREATED AUTHOR AUTHOR'S ORGANIZ ATION 08/24/2024 [facility] DATE CREATED AUTHOR AUTHOR'S ORGANIZ ATION 09/03/2024 [facility] DATE CREATED AUTHOR AUTHOR'S ORGANIZ ATION 01/05/2025 [facility] Care Teams (unrecognized sec tion and content) Team Status: Active Member Role Status Dates Dr. Kelle Oconnell MD Family Provider Active Dr. Miguel Gonzalez MD Primary Care Provider Active Team Status: Inactive Member Role Status Dates Dr. Kelle Oconnell MD Primary Care Provider, Referring Provider Active Dr. Cassandra Lockhart MD Attending Provider Active Team Status: Inactive Member Role Status Dates Dr. Kelle Oconnell MD Primary Care Provider Active Dr. Cassandra Lockhart MD Attending Provider, Referr ing Provider Active Team Status: Active Member Role Status Dates Dr. Miguel Gonzalez MD Primary Care Provider Active Indiana Lazo CNM Attending Provider, Referring Pro vider Active Dr. Cassandra Lockhart MD Other Provider Active Team Status: Inactive Member Role Status Dates Dr. Miguel Gonzalez MD Primary Care Provider Active Indiana Lazo CNM Attending Provider, Referring Pro vider Active Dr. Cassandra Lockhart MD Other Provider Active Team Status: Inactive Member Role Status Dates Dr. Kelle Oconnell MD Referring Provider Active Dr. Valorie Ramos DO Attending Provider Activ e Dr. Miguel Gonzalez MD Primary Care Provider Active Team Status: Inactive Member Role Status Dates Dr. Miguel Gonzalez MD Primary Care Provider Active Dr. Valorie Ramos DO Attending Provider, Refe rring Provider Active Team Status: Inactive Member Role Status Dates Dr. Miguel Gonzalez MD Primary Care Provider, Referring Provider Active Indiana Lazo CNM Attending Provider Active Team Status: Inactive Member Role Status Dates Dr. Miguel Gonzalez MD Primary Care Provider, Referring Provider Active Brenda Morrow CNM Attending Provider Active Team Status: Inactive Member Role Status Dates Dr. Miguel Gonzalez MD Primary Care Provider Active Brenda Morrow CNM Attending Provider, Referring Pr ovider Active Team Status: Inactive Member Role Status Dates Dr. Miguel Gonzalez MD Primary Care Provider Active Start: April 26, 2024 End: April 26, 2024 John Ariza PREPARATION ROOM MANAGER, PREPARATION ROOM MANAGER-C Attending Provider Active Start: April 26, 2024 End: April 26, 2024 John Ariza PREPARATION ROOM MANAGER, PREPARATION ROOM MANAGER-C Referring Provider Active Start: April 26, 2024 End: April 26, 2024 Team Status: Active Member Role Status Dates Dr. Miguel Gonzalez MD Primary Care Provider Active Team Status: Inactive Member Role Status Dates Dr. Miguel Gonzalez MD Primary Care Provider Active Start: June 07, 2024 End: June 07, 2024 Heriberto Frazier MD Emergency Provider Active Star t: June 07, 2024 End: June 07, 2024 Team Status: Inactive Member Role Status Dates Dr. Miguel Gonzalez MD Primary Care Provider Active Start: June 07, 2024 End: June 07, 2024 Heriberto Frazier MD Attending Provider Active Star t: June 07, 2024 End: June 07, 2024 Heriberto Frazier MD Emergency Provider Active Star t: June 07, 2024 End: June 07, 2024 Team Status: Inactive Member Role Status Dates Dr. Miguel Gonzalez MD Primary Care Provider Active Start: June 22, 2024 End: June 22, 2024 Dr. Miguel Gonzalez MD Referring Provider Active Start: June 22, 2024 End: June 22, 2024 Dr. Cassandra Lockhart MD Attending Provider Active Start: June 22, 2024 End: June 22, 2024 Team Status: Inactive Member Role Status Dates Dr. Miguel Gonzalez MD Primary Care Provider Active Start: June 29, 2024 End: June 29, 2024 Dr. Wilbert Butler MD Emergency Provider Active Start: June 29, 2024 End: June 29, 2024 Team Status: Inactive Member Role Status Dates Dr. Miguel Gonzalez MD Primary Care Provider Active Start: June 29, 2024 End: June 29, 2024 Dr. Wilbert Butler MD Attending Provider Active Start: June 29, 2024 End: June 29, 2024 Dr. Wilbert Butler MD Emergency Provider Active Start: June 29, 2024 End: June 29, 2024 Team Status: Active Member Role Status Dates Dr. Miguel Gonzalez MD Primary Care Provider Active Start: July 01, 2024 Isa Rios RN Attending Provider Active St art: July 01, 2024 Team Status: Inactive Member Role Status Dates Dr. Miguel Gonzalez MD Primary Care Provider Active Start: July 07, 2024 End: July 07, 2024 Dr. Miguel Gonzalez MD Referring Provider Active Start: July 07, 2024 End: July 07, 2024 Dr. Cassandra Lockhart MD Attending Provider Active Start: July 07, 2024 End: July 07, 2024 Team Status: Active Member Role Status Dates Dr. Miguel Gonzalez MD Primary Care Provider Active Start: July 07, 2024 Dr. Cassandra Lockhart MD Attending Provider Active Start: July 07, 2024 Dr. Cassandra Lockhart MD Referring Provider Active Start: July 07, 2024 Team Status: Inactive Member Role Status Dates Dr. Miguel Gonzalez MD Primary Care Provider Active Start: July 07, 2024 End: July 07, 2024 Dr. Cassandra Lockhart MD Attending Provider Active Start: July 07, 2024 End: July 07, 2024 Dr. Cassandra Lockhart MD Referring Provider Active Start: July 07, 2024 End: July 07, 2024 Team Status: Inactive Member Role Status Dates Dr. Miguel Gonzalez MD Primary Care Provider Active Start: August 03, 2024 End: August 03, 2024 Dr. Miguel Gonzalez MD Referring Provider Active Start: August 03, 2024 End: August 03, 2024 John Ariza PREPARATION ROOM MANAGER, PREPARATION ROOM MANAGER-C Attending Provider Active Start: August 03, 2024 End: August 03, 2024 Team Status: Active Member Role/Relationship Status Dates Dr. Miguel Gonzalez MD Primary Care Provider Active Team Status: Inactive Member Role/Relationship Status Dates Dr. Miguel Gonzalez MD Primary Care Provider Active Start: June 07, 2024 End: June 07, 2024 Heriberto Frazier MD Attending Provider Active Star t: June 07, 2024 End: June 07, 2024 Heriberto Frazier MD Emergency Provider Active Star t: June 07, 2024 End: June 07, 2024 Team Status: Inactive Member Role/Relationship Status Dates Dr. Miguel Gonzalez MD Primary Care Provider Active Start: June 22, 2024 End: June 22, 2024 Dr. Miguel Gonzalez MD Referring Provider Active Start: June 22, 2024 End: June 22, 2024 Dr. Cassandra Lockhart MD Attending Provider Active Start: June 22, 2024 End: June 22, 2024 Team Status: Inactive Member Role/Relationship Status Dates Dr. Miguel Gonzalez MD Primary Care Provider Active Start: June 29, 2024 End: June 29, 2024 Dr. Wilbert Butler MD Attending Provider Active Start: June 29, 2024 End: June 29, 2024 Dr. Wilbert Butler MD Emergency Provider Active Start: June 29, 2024 End: June 29, 2024 Team Status: Active Member Role/Relationship Status Dates Dr. Miguel Gonzalez MD Primary Care Provider Active Start: July 01, 2024 Isa Rios RN Attending Provider Active St art: July 01, 2024 Team Status: Inactive Member Role/Relationship Status Dates Dr. Miguel Gonzalez MD Primary Care Provider Active Start: July 07, 2024 End: July 07, 2024 Dr. Miguel Gonzalez MD Referring Provider Active Start: July 07, 2024 End: July 07, 2024 Dr. Cassandra Lockhart MD Attending Provider Active Start: July 07, 2024 End: July 07, 2024 Team Status: Inactive Member Role/Relationship Status Dates Dr. Miguel Gonzalez MD Primary Care Provider Active Start: July 07, 2024 End: July 07, 2024 Dr. Cassandra Lockhart MD Attending Provider Active Start: July 07, 2024 End: July 07, 2024 Dr. Cassandra Lockhart MD Referring Provider Active Start: July 07, 2024 End: July 07, 2024 Team Status: Inactive Member Role/Relationship Status Dates Dr. Miguel Gonzalez MD Primary Care Provider Active Start: August 03, 2024 End: August 03, 2024 Dr. Miguel Gonzalez MD Referring Provider Active Start: August 03, 2024 End: August 03, 2024 John Ariza PREPARATION ROOM MANAGER, PREPARATION ROOM MANAGER-C Attending Provider Active Start: August 03, 2024 End: August 03, 2024 Team Status: Inactive Member Role/Relationship Status Dates Dr. Miguel Gonzalez MD Primary Care Provider Active Start: September 06, 2024 End: September 06, 2024 Dr. Miguel Gonzalez MD Referring Provider Active Start: September 06, 2024 End: September 06, 2024 Dr. Valorie Ramos DO Attending Provider Activ e Start: September 06, 2024 End: September 06, 2024 Team Status: Inactive Member Role/Relationship Status Dates Dr. Miguel Gonzalez MD Primary Care Provider Active Start: September 30, 2024 End: September 30, 2024 Dr. Miguel Gonzalez MD Referring Provider Active Start: September 30, 2024 End: September 30, 2024 Indiana Lazo CNM Attending Provider Active S tart: September 30, 2024 End: September 30, 2024 Team Status: Inactive Member Role/Relationship Status Dates Dr. Miguel Gonzalez MD Primary Care Provider Active Start: June 29, 2024 End: June 29, 2024 Dr. Wilbert Butler MD Attending Provider Active Start: June 29, 2024 End: June 29, 2024 Dr. Wilbert Butler MD Emergency Provider Active Start: June 29, 2024 End: June 29, 2024 Team Status: Active Member Role/Relationship Status Dates Dr. Miguel Gonzalez MD Primary Care Provider Active Start: July 01, 2024 Isa Rios RN Attending Provider Active St art: July 01, 2024 Team Status: Inactive Member Role/Relationship Status Dates Dr. Miguel Gonzalez MD Primary Care Provider Active Start: July 07, 2024 End: July 07, 2024 Dr. Miguel Gonzalez MD Referring Provider Active Start: July 07, 2024 End: July 07, 2024 Dr. Cassandra Lockhart MD Attending Provider Active Start: July 07, 2024 End: July 07, 2024 Team Status: Inactive Member Role/Relationship Status Dates Dr. Miguel Gonzalez MD Primary Care Provider Active Start: July 07, 2024 End: July 07, 2024 Dr. Cassandra Lockhart MD Attending Provider Active Start: July 07, 2024 End: July 07, 2024 Dr. Cassandra Lockhart MD Referring Provider Active Start: July 07, 2024 End: July 07, 2024 Team Status: Inactive Member Role/Relationship Status Dates Dr. Miguel Gonzalez MD Primary Care Provider Active Start: August 03, 2024 End: August 03, 2024 Dr. Miguel Gonzalez MD Referring Provider Active Start: August 03, 2024 End: August 03, 2024 John Ariza PREPARATION ROOM MANAGER, PREPARATION ROOM MANAGER-C Attending Provider Active Start: August 03, 2024 End: August 03, 2024 Team Status: Inactive Member Role/Relationship Status Dates Dr. Miguel Gonzalez MD Primary Care Provider Active Start: September 06, 2024 End: September 06, 2024 Dr. Miguel Gonzalez MD Referring Provider Active Start: September 06, 2024 End: September 06, 2024 Dr. Valorie Ramos DO Attending Provider Activ e Start: September 06, 2024 End: September 06, 2024 Team Status: Inactive Member Role/Relationship Status Dates Dr. Miguel Gonzalez MD Primary Care Provider Active Start: September 30, 2024 End: September 30, 2024 Dr. Miguel Gonzalez MD Referring Provider Active Start: September 30, 2024 End: September 30, 2024 Indiana Lazo CNM Attending Provider Active S tart: September 30, 2024 End: September 30, 2024 Team Status: Inactive Member Role/Relationship Status Dates Dr. Miguel Gonzalez MD Primary Care Provider Active Start: October 26, 2024 End: October 26, 2024 Dr. Miguel Gonzalez MD Referring Provider Active Start: October 26, 2024 End: October 26, 2024 Dr. Valorie Ramos DO Attending Provider Activ e Start: October 26, 2024 End: October 26, 2024 Team Status: Active Member Role/Relationship Status Dates Dr. Miguel Gonzalez MD Primary care physician Active Team Status: Inactive Member Role/Relationship Status Dates Dr. Miguel Gonzalez MD Primary care physician Active Start: August 03, 2024 End: August 03, 2024 Dr. Miguel Gonzalez MD Referring Provider Active Start: August 03, 2024 End: August 03, 2024 John Ariza PREPARATION ROOM MANAGER, PREPARATION ROOM MANAGER-C Attending physician Active Start: August 03, 2024 End: August 03, 2024 Team Status: Inactive Member Role/Relationship Status Dates Dr. Miguel Gonzalez MD Primary care physician Active Start: September 06, 2024 End: September 06, 2024 Dr. Miguel Gonzalez MD Referring Provider Active Start: September 06, 2024 End: September 06, 2024 Dr. Valorie Ramos DO Attending physician Acti ve Start: September 06, 2024 End: September 06, 2024 Team Status: Inactive Member Role/Relationship Status Dates Dr. Miguel Gonzalez MD Primary care physician Active Start: September 30, 2024 End: September 30, 2024 Dr. Miguel Gonzalez MD Referring Provider Active Start: September 30, 2024 End: September 30, 2024 Indiana Lazo CNM Attending physician Active Start: September 30, 2024 End: September 30, 2024 Team Status: Inactive Member Role/Relationship Status Dates Dr. Miguel Gonzalez MD Primary care physician Active Start: October 26, 2024 End: October 26, 2024 Dr. Miguel Gonzalez MD Referring Provider Active Start: October 26, 2024 End: October 26, 2024 Dr. Valorie Ramos DO Attending physician Active Start: October End: October 26, 2024 Team Status: Inactive Member Role/Relationship Status Dates Dr. Miguel Gonzalez MD Primary care physician Active Start: November 16, 2024 End: November 16, 2024 Dr. Miguel Gonzalez MD Referring Provider Active Start: November 16, 2024 End: November 16, 2024 Dr. Valorie Ramos DO Attending physician Active Start: October End: November 16, 2024 Team Status: Active Member Role/Relationship Status Dates Dr. Miguel Gonzalez MD Primary care physician Active Start: November 16, 2024 Indiana Lazo CNM Attending physician Active Start: November 16, 2024 Team Status: Inactive Member Role/Relationship Status Dates Dr. Miguel Gonzalez MD Primary care physician Active Start: November 16, 2024 End: November 16, 2024 Indiana Lazo CNM Attending physician Active Start: November 16, 2024 End: November 16, 2024 Team Status: Inactive Member Role/Relationship Status Dates Dr. Miguel Gonzalez MD Primary care physician Active Start: September 06, 2024 End: September 06, 2024 Dr. Miguel Gonzalez MD Referring Provider Active Start: September 06, 2024 End: September 06, 2024 Dr. Valorie Ramos DO Attending physician Acti ve Start: September 06, 2024 End: September 06, 2024 Team Status: Inactive Member Role/Relationship Status Dates Dr. Miguel Gonzalez MD Primary care physician Active Start: September 30, 2024 End: September 30, 2024 Dr. Miguel Gonzalez MD Referring Provider Active Start: September 30, 2024 End: September 30, 2024 Indiana Lazo CNM Attending physician Active Start: September 30, 2024 End: September 30, 2024 Team Status: Inactive Member Role/Relationship Status Dates Dr. Miguel Gonzalez MD Primary care physician Active Start: October 26, 2024 End: October 26, 2024 Dr. Miguel Gonzalez MD Referring Provider Active Start: October 26, 2024 End: October 26, 2024 Dr. Valorie Ramos DO Attending physician Active Start: October End: October 26, 2024 Team Status: Inactive Member Role/Relationship Status Dates Dr. Miguel Gonzalez MD Primary care physician Active Start: November 16, 2024 End: November 16, 2024 Dr. Miguel Gonzalez MD Referring Provider Active Start: November 16, 2024 End: November 16, 2024 Dr. Valorie Ramos DO Attending physician Active Start: October End: November 16, 2024 Team Status: Inactive Member Role/Relationship Status Dates Dr. Miguel Gonzalez MD Primary care physician Active Start: November 16, 2024 End: November 16, 2024 Indiana Lazo CNM Attending physician Active Start: November 16, 2024 End: November 16, 2024 Team Status: Inactive Member Role/Relationship Status Dates Dr. Miguel Gonzalez MD Primary care physician Active Start: December 05, 2024 End: December 05, 2024 Dr. Miguel Gonzalez MD Referring Provider Active Start: December 05, 2024 End: December 05, 2024 John Ariza PREPARATION ROOM MANAGER, PREPARATION ROOM MANAGER-C Attending physician Active Start: December 05, 2024 End: December 05, 2024 Team Status: Inactive Member Role/Relationship Status Dates Dr. Miguel Gonzalez MD Primary care physician Active Start: December 14, 2024 End: December 14, 2024 Dr. Miguel Gonzalez MD Referring Provider Active Start: December 14, 2024 End: December 14, 2024 Dr. Cassandra Lockhart MD Attending physician Active Start: December 14, 2024 End: December 14, 2024 Team Status: Active Member Role/Relationship Status Dates Dr. Miguel Gonzalez MD Primary care physician Active Start: December 23, 2024 Dr. Cassandra Lockhart MD Attending physician Active Start: December 23, 2024 Dr. Cassandra Lockhart MD Referring Provider Active Start: December 23, 2024 Team Status: Inactive Member Role/Relationship Status Dates Dr. Miguel Gonzalez MD Primary care physician Active Start: December 26, 2024 End: December 26, 2024 Dr. Miguel Gonzalez MD Referring Provider Active Start: December 26, 2024 End: December 26, 2024 Dr. Valorie Ramos DO Attending physician Acti ve Start: December 26, 2024 End: December 26, 2024 FOR RECORDS PERTAINING TO PATIENTS [...] BE BASED ON THE PRIMARY CLINICAL RECORDS. [facility]. provides no warranty or guarantee of the accuracy or completeness of information in this document.
[2025-01-20] MEDS: Lactated Ringers 1,000 ML 999 ML IV (05:30)
[2025-01-20 05:46] LABS: Hematocrit 29.5 % (37-47); Hemoglobin 9.5 g/dL (12.0-15.0); Immature Granulocytes Count 0.090 X10^3/uL (0.0-0.0); Mean Corp Hgb Conc 32.2 g/dL (32-36); Mean Corpuscular Volume 75.1 fL (81-99); NRBC Flagged by Analyzer 0 % (0-5); POSITIVE MORPHOLOGY YES; Platelet Count 175 K/mm3 (150-450); RBC Distribution Width CV 14.5 % (11.6-14.6); RBC Distribution Width SD 39.2 fl (35.1-43.9); Red Blood Count 3.93 M/mm3 (4.2-5.4); White Blood Count 14.2 K/mm3 (4.4-11.0)
[2025-01-20 06:01] LABS: Differential Indicated SCAN CRITERIA MET
[2025-01-20 06:19] LABS: Syphilis Antibodies Nonreactive (Nonreactive)
[2025-01-20] MEDS: Lactated Ringers 1,000 ML 150 ML IV (06:43)
--- NOTE | 2025-01-20 07:08 | HP.PCM_ITS ---
History and Physical Date of Admission: 01/20/25 Intake Vital Signs 12/06/2507:33 01/04/2515:24 01/11/2515:59 Height 5 ft 2 in 5 ft 2 in 5 ft 2 in Weight: 177 lb 2 oz BMI 32.3 BP 136/72 H Intake Visit Reasons: 38wk ob *csection/sm Antique Collector Required: No Is patient in pain?: No Allergies No Known Allergies Allergy (Verified 01/11/25 15:58) Medications Medication Instructions Recorded Confirmed Type NK 07/07/24 01/11/25 History Last Menstrual Period: 01/11/23 Zika: Zika virus screening: Negative : No PFSH PFSH Medical History History of shoulder dystocia PMDD (premenstrual dysphoric disorder) Anemia PCOS (polycystic ovarian syndrome) Surgical History History of H/O oral surgery Family History Father Diabetes Type 1 Mother Hypertension Grandfather Cancer bladder Social History adopted: No household members: spouse and children number of children: 2 current occupational status: employed 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 current occupational exposures/hazards: No pets and animals: Yes pets and animals: dog(s) history of recent travel: No sexually active: Yes Smoking Status: Never smoker second hand exposure: No alcohol intake: current alcohol intake frequency: holidays/special occasions only details: Not while substance use type: does not use well-balanced diet: daily or most days caffeine: No eating out: rarely or never during the past year weight has: remained stable what type of physical activity do you participate in: walking and yoga frequency: 3-4 times per week duration: 15-30 minutes/day kofi/latter day: Mandaeism seatbelt use: always do you feel safe at home: Yes additional social history: : [employer] LEIGH History 3 Elective abortions Hx Para 2 Spontaneous abortions 0 Hx # Term Pregnancies 2 Ectopic pregnancies Hx # Pregnancies Multiple births # of living children 2 Past Pregnancies Del. Date Name GA/Weeks Outcome Route Bth Weight Infant Gen Labor Lgth Anesthesia Del Locatn Provider FOB 04/09/21 Alfred 39 live - full term 7lbs 9 ou nces Female epidural [facility] Chantelle Hyman 10/02/23 Devang 39 live - full term 7lbs 10oz Female spinal [facility] Dr. Chantelle Hyman Delivery Date: 04/09/21 Last Updated by: Giselle Hoffmann IOL shoulder dystocia Delivery Date: 10/02/23 Last Updated by: Valencia Hawkins Primary section due to history of shoulder dystocia. Anemia, GBS + HPI 38wk ob *csection/sm Details: PJ SUN is a 34 year old who presents for routine OB visit. planing RLTCS OB Visit JERZY Calculator Estimated Delivery Date Method Current Current Estimate 01/26/25 Ultrasound #1 37w 6d Expected Delivery Route/Plan RLTCS with SM success rate is 78% Specific Issue/Plans Covid status: [] Flu vaccine: declines Tdap vaccine: declines Rhogam: NA LARC form signed: yes Problem list reviewed and updated with the most current plan of care details and appropriate orders placed. Relevant counseling for the gestational age provided. Continue routine care and follow up unless otherwise noted in visit notes/problem list details Initial Weight: Not Recorded Date - - - - - - - - - - - - - EGA Weight BP Urine Prot - - - - - - - - - - - - - Glucose FHR FuHt Pres Dilation - - - - - - - - - - - - - Effaced St Visit Note 07/07/24- - - - - - - - - - - - - 11w 0d 157 lb 2 oz 139/88 - - - - - - - - - - - - - 180 - - - - - - - - - - - - - SM- CRL 3.9cm cons with LMP 08/03/24- - - - - - - - - - - - - 14w 6d 157 lb 126/84 Negative - - - - - - - - - - - - - Negative 163 - - - - - - - - - - - - - MH-No VB. Nausea improved. Br US confirm FHT 09/06/24- - - - - - - - - - - - - 19w 5d 159 lb 6 oz 117/77 Negative - - - - - - - - - - - - - Negative 160 - - - - - - - - - - - - - JV- long discussion about success rate of 78%. we discussed that this does not predict baby's health after delivery it it ends up in a shoulder dystocia again however and it only predicts the probability of getting the baby out vaginally 09/30/24- - - - - - - - - - - - - 23w 1d 162 lb 4 oz 124/82 Negative - - - - - - - - - - - - - Negative 145 24 - - - - - - - - - - - - - KW- no vb/lof/ctx. good fm. many questions about doing a 10/26/24- - - - - - - - - - - - - 26w 6d 165 lb 123/76 Negative - - - - - - - - - - - - - Negative 147 28 - - - - - - - - - - - - - JV- no lof, vaginal bleeding, or dec fm. glucola next visit. 11/16/24- - - - - - - - - - - - - 29w 6d 168 lb 1 oz 123/72 - - - - - - - - - - - - - 135 30 - - - - - - - - - - - - - JV- glucola today. has some intermittent contractions and some urinary leaking with coughing. wants to try to . planning for rpt section if no on 01/27/25 with SM. 12/05/24- - - - - - - - - - - - - 32w 4d 169 lb 5 oz 121/80 Negative - - - - - - - - - - - - - Negative 143 32 - - - - - - - - - - - - - MH-NO VB, LOF or reg CTX. No concerns 12/14/24- - - - - - - - - - - - - 33w 6d 173 lb 4 oz 120/78 - - - - - - - - - - - - - 130 34 - - - - - - - - - - - - - SM- no vb lof good fm no reuglar ctx but having some duy monsivais 12/26/24- - - - - - - - - - - - - 35w 4d 175 lb 4 oz 130/87 Negative - - - - - - - - - - - - - Negative 140 38 - - - - - - - - - - - - - JV- no lof, vaginal bleeding ,or dec fm. EFW is 90th% with 97% AC. pt understands that if does not go into labor 36 weeks, we will likely have a repeat section. 01/04/25- - - - - - - - - - - - - 36w 6d 176 lb 133/87 Negative - - - - - - - - - - - - - Negative 140 39 Cephalic 1- - - - - - - - - - - - - SM- no vb lof good fm no reuglar ctx 01/11/25- - - - - - - -- - - - - - 37w 6d 177 lb 2 oz 136/72 Negative - - - - - - - - - - - - - Negative 130 40 - - - - - - - - - - - - - SM- no vb lof good fm n oregular ctx ACOG First Trimester First Trimester: Desire for , Alcohol, Tobacco Cessation, Illicit/Recreational Drug/Substance Use, Intimate Partner Violence, Barriers to care, Unstable Housing, Communication Barriers, Environmental/Work Hazards, Anticipated Course of Care, Toxoplasmosis Precations, Use of Any medications, Sexual activity, Exercise, Dental Care, Sauna/Hot tub use, Seat Belt use, Childbirth classes/Hospital facilities, Travel, Indications for Ultrasound and Screening for Aneuploidy; Discussed Second Trimester Second Trimester: Signs and Symptoms of Labor, Selecting a care provider, Reproductive Life Planning & Contreception, Care Planning, Tobacco Cessation, Depression/Anxiety and Intimate Partner Violence Third Trimester Third Trimester: Pain Management Plans, Labor support person(s), Immediate Larc, Signs and Symptoms of Preeclampsia, Feeding No , Family Medical Leave or Disability Forms and Intimate Partner Violence ROS Const Reports system reviewed and no additional complaints, except as documented Card Reports system reviewed and no additional complaints, except as documented Resp Reports system reviewed and no additional complaints, except as documented GI Reports system reviewed and no additional complaints, except as documented and Reports nausea Reports system reviewed and no additional complaints, except as documented Musc Reports system reviewed and no additional complaints, except as documented Exam Const General: cooperative, healthy appearing, comfortable and anxious HENSC Head: normal to inspection Nose: external nose normal Face and sinus: normal facial exam Neck Neck: normal visual inspection, full ROM and no lymphadenopathy Thyroid: thyroid normal Chest Chest palpation & inspection: normal inspection of the chest Resp Effort & Inspection: normal respiratory effort GI Inspection: normal to inspection Palpation: soft and other (gravid uterus) Other: vertex and appropriate size for gestational age Other: Cervical Exam: Extrem General: pedal edema Results POC Urinalysis 2 Dip (Clinic) Office Urine Glucose Negative Last Edit by Rebekah Ely on 01/11/25 16:1 8 Office Urine Protein Negative Last Edit by Rebekah Ely on 01/11/25 16:1 8 Coding Level of Care Code OB Routine Diagnoses 38 weeks gestation of Z3A.38 Weeks of gestation: 38 weeks Supervision of high risk in third trimester O09.93 Trimester: third trimester History of delivery, currently O34.219 PCOS (polycystic ovarian syndrome) E28.2 History of shoulder dystocia Assessment and Plan Assessment and Plan (1) : Status: Acute Qualifiers: Weeks of gestation: 38 weeks Qualified Code(s): Z3A.38 - 38 weeks gestation of Comment: Neg GBS. NIPT low risk, nl anatomy. (2) Supervision of high-risk : Status: Acute Qualifiers: Trimester: third trimester Qualified Code(s): O09.93 - Supervision of high risk , unspecified, third trimester Comment: [id number]; JERZY 01/26/25; PC: Alfred & Devang; : Boogie (3) History of delivery, currently : Status: Acute Comment: x1; Desires if smaller , if same size plan RLTCS -will need ultrasound at 36 and 39 weeks. c/s 01/20 . (4) PCOS (polycystic ovarian syndrome): Status: Acute Comment: NOT on Metformin (5) History of shoulder dystocia: Status: Acute Comment: 1st ; csec w/second d/t this Orders: Orders POC Urinalysis 2 Dip (Clinic) Today plan RLTCS today
--- NOTE | 2025-01-20 07:09 | OP.PCM_ITS ---
Assessment & Plan (1) Supervision of high-risk : QUALIFIERS: Trimester: third trimester Qualified Code(s): O09.93 - Supervision of high risk , unspecified, third trimester COMMENT: [id number]; JERZY 01/26/25; PC: [place]; : Boogie (2) : QUALIFIERS: Weeks of gestation: 38 weeks Qualified Code(s): Z3A.38 - 38 weeks gestation of COMMENT: Neg GBS. NIPT low risk, nl anatomy. (3) History of delivery, currently : COMMENT: x1; Desires if smaller infant, if same size plan RLTCS -will need ultrasound at 36 and 39 weeks. c/s 01/20 . (4) PCOS (polycystic ovarian syndrome): COMMENT: NOT on Metformin (5) History of shoulder dystocia: COMMENT: 1st ; csec w/second d/t this (6) delivery delivered: COMMENT: RLTCS 39 Maternal Data Information JERZY Calculator Estimated Delivery Date Method Current WG Current Estimate 01/26/25 Ultrasound #1 39w 1d Final JERZY Source: LMP Operative Report (OB) Procedure Details Date of Procedure: 01/20/25 Procedure Start Time: 07:33 Pre-Operative Diagnosis: Other Other Pre-Operative diagnosis: see a/p comments Post-Operative Diagnosis: Same as Pre-operative diagnosis Classification: Scheduled Type of Anesthesia: Spinal Special Medications: none Antibiotic Given: Ancef 2 grams IV x1 Drain: Vaughn to straight drain Estimated Blood Loss: 600 Fluids Replaced: crystalloid Findings Description of surgery: Spinal anesthesia was placed without difficulty. Vaughn catheter was placed. The patient was placed in the dorsal supine position with leftward tilt. Patient was prepped an draped in the normal sterile fashion. Pfannenstiel skin incision was made with the scalpel and carried through to the underlying layer of fascia with the scalpel. Fascia was nicked in the midline and the incision extended laterally. The rectus bellies were dissected off superiorly and inferiorly with out complication both sharply and bluntly. The peritoneum was entered digitally. The incision was stretched and a low transverse uterine incision was made with the scalpel. The infant's head was delivered atraumatically followed by the anterior and posterior shoulders without complication the rest of the delivered. The cord was clamped and cut and the was handed off to awaiting nurse. The placenta was delivered spontaneously immediately following and was noted to be intact and have a three- vessel cord. The uterus was exteriorized cleared of all clots and debris, and the incision was closed in a single layer closure using #1 Monocryl. The ovaries and fallopian tubes were noted to be within normal limits. The uterus was returned to the maternal abdomen and gutters were cleared of all clots and debris. The peritoneum was closed with 3-0 Monocryl in a running fashion. Gloves were changed prior to fascial closure. Fascia was closed with 0 PDS in a running fashion. Subcutaneous tissue was copiously irrigated and the skin was closed with 3-0 Monocryl in a subcuticular fashion. Mepilex dressing was applied without complication. Patient was taken to recovery in stable condition. Surgical findings: vvertex infant Presentation: Vertex Amniotic Membrane Rupture Type: Artificial Amniotic Fluid Description: Clear Specimen collected: Yes Description of specimen(s) removed: placenta and baby Cord Vessel Description: 3 Vessels Delayed Cord Clamping: Yes Pacu Nurse spline rolling machine job setter: Yes Medical Laboratory Specialist: Bree Duffy Tasks completed by psychology assistant: Opening & closing, Retracting and Other (assisting in delivery of the ) Additional middle school assistant principal?: No Complications Complications: No Admit VTE Documentation VTE Present on Admission: No VTE Mechan Device Prophylaxis: SCD's Procedures Urinary/Genital [id number]: [id number] Delivery [facility]
--- NOTE | 2025-01-20 07:11 | PCM.DC ---
Discharge Instructions DC O2, CPAP, BIPAP needs Home O2 Discharge instructions: No Dressing / Incision Discharge Activity: May Not Drive (for 2 weeks or while taking narcotic pain medications.), May Shower and May Take a Tub Bath (in 7 days) May shower in (days): 0 May resume sexual activity in: 4-6 weeks Weight Bearing Status: Full weight bearing Lifting Restrictions: 20 pounds Dressing / Incision Call your doctor if your incision/area has: Continuous Slow Oozing, Sudden Increased Bleeding, Increased Pain/ Swelling, Increased Redness and Foul Smelling Discharge Call your doctor if you observe: Fever of 101 or Higher and Using more than 1 pad per hour (for 2 hours) Suture Line Care: Avoid Pulling/Pushing and Avoid Pinching/Bending Cleanse incision/area with: Soap & Water and Keep Dressing Clean & Dry Follow Up Care Please Follow Up With: Cassandra Lockhart MD When: Call [phone] to make an appointment for an incision check in 1-2 weeks. Test Results: Test results from this visit will be discussed in further detail at your follow-up appointment, if applicable. Discharge Plan Admission Admit Date/Time: 01/20/25 07:12 Attending Provider: Cassandra Lockhart Primary Care Provider: Jenna Vigil Discharge Orders/Prescriptions Prescriptions: New oxycodone-acetaminophen [Percocet] 5-325 mg tablet 1 tab PO Q4H PRN (Reason: pain) 7 Days Qty: 20 0RF naproxen 500 mg tablet 500 mg PO BID PRN PRN (Reason: Pain) Qty: 30 1RF Referrals / Follow Up: Jenna Vigil MD [Primary Care Provider, Medical] Disposition Disposition (needs filled in before D/C Order can be placed): Home, Self Care
[2025-01-20 07:13] LABS: Hypochromasia 2+
[2025-01-20] MEDS: Cefazolin 1 GM/5 ML Vial 2 GM IV (07:13)
[2025-01-20] MEDS: fentaNYL 100 MCG/2 ML Ampul 10 MCG EPIDURAL (07:19)
[2025-01-20] MEDS: morphine PF (epidural) 5 MG/10 ML Vial EPIDURAL (07:19)
--- OUTSIDE RECORDS SUMMARY | 2025-01-20 07:23 | XMS RPT_ITS | CCD ---
Author Organization [facility] Care Team Providers Care Group Manager Name Role Phone Dr. Kelle Oconnell Primary Care Provider Dr. Kelle Oconnell Referring Provider Dr. Valorie Ramos Attending Provider Dr. Cassandra Lockhart Attending Provider Dr. Cassandra Lockhart Referring Provider Dr. Cassandra Lockhart Other Provider Dr. Cassandra Lockhart Admit Provider Annita ASSISTANT SALES DIRECTOR, ASSISTANT SALES DIRECTOR-Kirsten Pavon Attending Provider Cuba ASSISTANT SALES DIRECTOR, ASSISTANT SALES DIRECTOR-C Tea Attending Provider LEATHA CALVIN Attending Unava ilable MIGUEL GONZALEZ Primary Care Unavailable Dr. Kelle Oconnell Primary Care Provider Dr. Kelle Oconnell Referring Provider Dr. Cassandra Lockhart Attending Provider Dr. Valorie Ramos Attending Provider Dr. Migeul Gonzalez Primary Care Provider Dr. Miguel Gonzalez Referring Provider RICHIE Lazo Attending Provider Dr. Kelle Oconnell Referring Provider RICHIE Morrow Attending Provider Dr. Miguel Gonzalez MD Primary Care Provider Potter ASSISTANT SALES DIRECTOR-C, John Attending Provider Annita ASSISTANT SALES DIRECTOR-C, John Referring Provider Freddie HAUSER, Heriberto Emergency Provider Freddie HAUSER, Heriberto Attending Provider Musa HAUSER, Dr. West Referring Provider Chantelle HAUSER, Dr. Trujillo Attending Provider [phone] Luke HAUSER, Dr. Atkins Emergency Provider Luke HAUSER, Dr. Atkins Attending Provider Gabriel RN, Isa Attending Provider Unavailabl e Chantelle HAUSER, Dr. Trujillo Referring Provider [phone] KELLE OCONNELL Primary Care Unavailable LEONARDO BACON Attending Unavailable JOHN ARIZA S Referring Unavailable MIGUEL GONZALEZ Primary Care Unavailable Musa HAUSER, Dr. West Primary Care Provider Potter ASSISTANT SALES DIRECTOR-C, John Attending Provider Dr. Valorie Ramos DO Attending Provider Indiana Lazo CNM Attending Provider Dr. Miguel Gonzalez MD Primary Care Provider Dr. Miguel Gonzalez MD Referring Provider Dr. Cassandra Lockhart MD Attending Provider Dr. Miguel Gonzalez MD Primary Care Physician Dr. Miguel Gonzalez MD Referring Provider Annita ASSISTANT SALES DIRECTOR-C, John Attending Physician [phone] Dr. Valorie Ramos DO Attending Physician Indiana Lazo CNM Attending Physician Dr. Miguel Gonzalez MD Primary Care Physician Dr. Miguel Gonzalez MD Referring Provider Potter ASSISTANT SALES DIRECTOR-C, John Attending Physician [phone] Chantelle HAUSER, Dr. Trujillo Attending Physician Gonzalez, Miguel Primary Care Unavailable Cassandra Lockhart Attending Unavailable Gonzalez, Miguel Referring Unavailable Gonzalez, Miguel Referring Unavailable Annita ASSISTANT SALES DIRECTOR, John Attending Unavailable Gonzalez, Miguel Primary Care [...] Attending Unavailable Gonzalez, Miguel Primary Care Unavailable Potter ASSISTANT SALES DIRECTOR, John Referring Unavailable Annita ASSISTANT SALES DIRECTOR, John Attending Unavailable Gonzalez, Miguel Primary Care Unavailable MarcanthonyCassandra Referring Unavailable Marcanthony, Cassandra Attending Unavailable Gonzalez, Miguel Referring Unavailable Vande Velde, Valorie Attending Unavailabl e Gonzalez, Miguel Primary Care Unavailable Gonzalez, Miguel Primary Care Unavailable Heriberto Frazier Attending Unavailable Gonzalez, Miguel Primary Care Unavailable MarcanthCassandra gaviria Attending Unavailable MarcanthonyCassandra Admitting Unavailable Gonzalez, Miguel Primary Care Unavailable MarcanthCassandra [...] e Gonzalez, Miguel Primary Care Unavailable Annita ASSISTANT SALES DIRECTOR, John Attending Unavailable Gonzalez, Miguel Primary Care Unavailable Gonzalez, Miguel Referring Unavailable Vande Velde, Valorie Attending Unavailabl e Gonzalez, Miguel Referring Unavailable Gonzalez, Miguel Primary Care Unavailable Musa HAUSER, Dr. West Primary Care Physician Dr. Miguel Gonzalez MD Referring Provider Dr. Valorie Ramos DO Attending Physician Indiana Lazo CNM Attending Physician [phone] John Cárdenas Attending Physician [phone] Chantelle HAUSER, Dr. Trujillo Attending Physician Chantelle HAUSER, Dr. Trujlilo Referring Provider [phone] Medications Current Medications Medication Drug Class(es) Dates Sig (Normalized) Sig (Original) [place] (Nk) (10 sources) Start: 07-07-2024 [place] (Nk) A ctive July 06, 2024 11:00pm Start: 07-07-2024 [place] (Nk) A ctive July 07, 2024 12:00am Prenat.Vits,Gabo,Lvk-Nhtj-Kvj ic (6 sources) Start: 08-21-2020 take 1 tablet by mouth once daily Prenat.Vits,Gabo,Kaf-Hhwm-Vcgav Active 1 TABLET PO DAILY August 21, 2020 10:10am Start: 08-21-2020 End: 09-09-2022 take 1 tablet by mouth once daily Prenat.Vits,Gabo,Dvl-Phes-Vdxxh Discontin ued 1 TABLET PO DAILY August [...] hour then bid to finish Rx; Multivit 25-Fifm-Rpbvwn 1-Dha (Pnv-Dha) 27 mg iron-1 mg -300 mg capsule (16 sources) Start: 03-06-2023 End: 10-16-2023 Multivit 95-Keev-Hwjuaj 1-Dha (Pnv-Dha) 27 mg iron-1 mg -300 mg capsule Discontinued 1 NMA PO March 06, 2023 12:00am October 16, 2023 2:01pm Start: 03-06-2023 End: 10-16-2023 Multivit 24-Ynkz-Rffjvm 1-Dh a (Pnv-Dha) 27 mg iron-1 mg -300 mg capsule Discontinued 1 NMA PO March 06, 2023 1:00am October 16, 2023 3:01pm Start: 03-06-2023 End: 10-16-2023 Multivit 30-Bcgt-Iqyitr 1-Dh a (Pnv-Dha) 27 mg iron-1 mg [...] 09, 2022 8:25am Start: 08-21-2020 End: 09-09-2022 Prenat.Vits,Gabo,Kfh-Cjda-Fpi ic tablet Discontinued 1 {tbl} PO DAILY August 21, 2020 12:00am September 09, 2022 9:25am Start: 08-21-2020 End: 09-09-2022 Prenat.Vits,Gabo,Ctj-Wkhi-Cov ic tablet Discontinued 1 {tbl} PO DAILY [...] without indication] 10-02-2023 Episodic Comment on above: [facility] history of s houlder dystocia 7lb 11 [...] P C: Alfred & Devang; : Boogie HYSO1Y2; JERZY 01/26/25 ; PC: Koalina & Devang; [...] 58% growth US 36 weeks 1st ; [facility] w/second d/t this Unclassified (7 sources) call [...] Test Name Value Interpretation Reference Range Facility Fireman Office Visit Reporton 01-04-2025 Fireman Office Visit Report [facility]'s [address], [address] [place] [address] OFFICE VISIT Date of Service: 01/04/25 MR#: [id number] Acct: [id number] Name: LEONOR CAMACHO Rep #: [id number] : 1990 Provider: Dr. 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 Chantelle Hyman Delivery Date: 04/09/21 Last [...] that thi (more content not included)... Normal [facility] Laboratory - Chemistry and C hemistry - challengeOrdered By: Valorie Miller on 12-26-2024 Glucose Ql (U) Negative [facility] Laboratory - UrinalysisOrder ed By: Valorie Miller on 12-26-2024 Protein Ql (U) Negative [facility] Fireman Office Visit Reporton 12-26-2024 Fireman Office Visit Report [facility]'[address], [facility] [address] [place] [address] OFFICE VISIT Date of Service: 12/26/24 MR#: [id number] Acct: [id number] Name: LEONOR CAMACHO Rep #: [id number] : 1990 Provider: Dr. 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 Chantelle Hyman Delivery Date: 04/09/21 Last [...] we d (more content not included)... Normal [facility] OB Limited With Biometricson 12-23-2024 OB Limited With Biometrics [facility] Services [address] [place] [address] OB Limited With Biometrics MR#: [id number] Acct: [id number] Name: LEONOR CAMACHO Rep #: [id number] : 1990 F 34 From: Dallas Mortensen DO PCP: Dr. Miguel Gonzalez MD Status: REG CLI Study: OB Limited With Biometrics Date of Exam: 12/23 Exam# [id number] Ordering Dr: Cassandra Lockhart PROCEDURE: OB LIMITED [...] of 3064 grams. 90th percentile. Reading Location: [id number] CC: Dr. Miguel Gonzalez MD; Dr. Cassandra Lockhart MD Merchandising Consultant: Signed Normal [facility] Fireman Office Visit Reporton 12-14-2024 Fireman Office Visit Report [facility]'s [address], [address] [place] [address] OFFICE VISIT Date of Service: 12/14/24 MR#: [id number] Acct: [id number] Name: LEONOR CAMACHO Rep #: [id number] : 1990 Provider: Dr. 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 Chantelle Hyman Delivery Date: 04/09/21 Last [...] success ra (more content not included)... Normal [facility] Laboratory - Chemistry and C hemistry - challengeOrdered By: John Annita on 12-05-2024 Glucose Ql (U) Negative [facility] Laboratory - UrinalysisOrder ed By: John Ariza on 12-05-2024 Protein Ql (U) Negative [facility] Fireman Office Visit Reporton 12-05-2024 Fireman Office Visit Report [facility]'s [address], [address] [place] [address] OFFICE VISIT Date of Service: 12/05/24 MR#: [id number] Acct: [id number] Name: LEONOR CAMACHO Rep #: [id number] : 1990 Provider: JOSETTE franco Age/Sex: 34/F Location[place] [facility] Status: Signed Intake Vital Signs 09/30/24 08:50 11/16/24 15:54 12/05/24 08:33 Height 5 ft 2 in 5 ft 2 in 5 ft 2 in Weight: 169 lb 5 oz BMI 30.9 BP 121/80 H Intake Visit Reasons: 32wk ob 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 Chantelle Hyman Delivery Date: 04/09/21 Last [...] discussed t (more content not included)... Normal [facility] Absolute lymphocyte countOrd ered By: Indiana Lazo on 11-16-2024 Lymphocytes Auto (Unsp spec) [#/Vol] 2.16 10*3/uL 0.83-4.51 [facility] Absolute neutrophil countOrd ered By: Indiana Clifton on 11-16-2024 Neutrophils (Bld) [#/Vol] 10.4 10*3/uL High 2.0-7.7 [facility] Automated lymphocyte count a s percentage of total leukocytesOrdered By: Indiana Clifton on 11-16-2024 Lymphocytes/100 WBC Auto (Unsp spec) 16.2 % Low 19-41 [facility] Basophil percentageOrdered B y: Indiana Lazo on 11-16-2024 Basophils/100 WBC (Bld) 0.2 % 0-1 [facility] CBC W/Diff, Automatedon 10-25 Absolute Lymph 2.16 X10 3/uL Normal 0.83-4.51 [facility] Comment on above: Performed By: #### L 501.0250, L3890.6006, L509.8002, L100.0100 #### [facility] [address] [place], [address] Absolute Neut 10.4 X10 3/uL High 2.0-7.7 [facility] Comment on above: Performed By: #### L 501.0250, L3890.6006, L509.8002, L100.0100 #### [facility] [address] [place], [address] Basophils/100 WBC (Bld) 0.2 % Normal 0-1 [facility] Comment on above: Performed By: #### L 501.0250, L3890.6006, L509.8002, L100.0100 #### [facility] [address] [place], [address] Eosinophils/100 WBC (Bld) 0.4 % Normal 0-5 [facility] Comment on above: Performed By: #### L 501.0250, L3890.6006, L509.8002, L100.0100 #### [facility] [address] [place], [address] Erythrocyte distribution width (RBC) [Ratio] 12.6 % Normal 11.6-14.6 [facility] Comment on above: Performed By: #### L 501.0250, L3890.6006, L509.8002, L100.0100 #### [facility] [address] [place], [address] Hematocrit (Bld) [Volume fraction] 32.9 % Low 37-47 [facility] Comment on above: Performed By: #### L 501.0250, L3890.6006, L509.8002, L100.0100 #### [facility] [address] [place], [address] Hemoglobin (Bld) [Mass/Vol] 10.9 g/dL Low 12.0-15.0 [facility] Comment on above: Performed By: #### L 501.0250, L3890.6006, L509.8002, L100.0100 #### [facility] [address] [place], [address] IG% 0.700 Normal 0.0-0.9 [facility] Comment on above: Result Comment: IG% - Immature Granulocytes (promyelocytes, myelocytes and metamyelocytes) > 1% indicates that a LEFT SHIFT is Present. Performed By: #### L 501.0250, L3890.6006, L509.8002, L100.0100 #### [facility] [address] [place], [address] Lymphocytes/100 WBC (Bld) 16.2 % Low 19-41 [facility] Comment on above: Performed By: #### L 501.0250, L3890.6006, L509.8002, L100.0100 #### [facility] [address] [place], [address] MCH (RBC) [Entitic mass] 27.3 pg Normal 27.0-32.0 [facility] Comment on above: Performed By: #### L 501.0250, L3890.6006, L509.8002, L100.0100 #### [facility] [address] [place], [address] MCHC (RBC) [Mass/Vol] 33.1 g/dL Normal 32-36 [facility] Comment on above: Performed By: #### L 501.0250, L3890.6006, L509.8002, L100.0100 #### [facility] [address] [place], [address] MCV (RBC) [Entitic vol] 82.5 fL Normal 81-99 [facility] Comment on above: Performed By: #### L 501.0250, L3890.6006, L509.8002, L100.0100 #### [facility] [address] [place], [address] Monocytes/100 WBC (Bld) 4.5 % Normal 0-10 [facility] Comment on above: Performed By: #### L 501.0250, L3890.6006, L509.8002, L100.0100 #### [facility] [address] [place], [address] Neutrophils/100 WBC (Bld) 78.0 % High 47-70 [facility] Comment on above: Performed By: #### L 501.0250, L3890.6006, L509.8002, L100.0100 #### [facility] [address] [place], [address] Nucleated RBC (Bld) [#/Vol] 0 10*3/uL Normal 0-5 [facility] Comment on above: Performed By: #### L 501.0250, L3890.6006, L509.8002, L100.0100 #### [facility] [address] [place], [address] Platelet mean volume (Bld) [Entitic vol] 12.8 fL High 6.2-12.0 [facility] Comment on above: Performed By: #### L 501.0250, L3890.6006, L509.8002, L100.0100 #### [facility] [address] [place], [address] Platelets (Bld) [#/Vol] 183 10*3/uL Normal 150-450 [facility] Comment on above: Performed By: #### L 501.0250, L3890.6006, L509.8002, L100.0100 #### [facility] [address] [place], [address] RBC (Bld) [#/Vol] 3.99 10*6/uL Low 4.2-5.4 [facility] Comment on above: Performed By: #### L 501.0250, L3890.6006, L509.8002, L100.0100 #### [facility] [address] [place], [address] RDW SD 38.2 fl Normal 35.1-43.9 [facility] Comment on above: Performed By: #### L 501.0250, L3890.6006, L509.8002, L100.0100 #### [facility] [address] [place], [address] WBC (Bld) [#/Vol] 13.3 10*3/uL High 4.4-11.0 [facility] Comment on above: Performed By: #### L 501.0250, L3890.6006, L509.8002, L100.0100 #### [facility] [address] [place], [address] Eosinophil percentageOrdered By: Indiana Lazo on 11-16-2024 Eosinophils/100 WBC (Bld) 0.4 % 0-5 [facility] Erythrocyte distribution wid th ratioOrdered By: Indiana Lazo on 11-16-2024 Erythrocyte distribution width (RBC) [Ratio] 12.6 % 11.6-14.6 [facility] Erythrocyte distribution wid th standard deviationOrdered By: Indiana Lazo on 11-16-2024 Erythrocyte distribution width (RBC) [Ratio] 38.2 fl 35.1-43.9 [facility] Glucose Challenge Gest 1H 50 jose carlos 11-16-2024 GLU GEST 50g 1H 120 mg/dL Normal 70-140 [facility] Comment on above: Performed By: #### L 501.0250, L3890.6006, L509.8002, L100.0100 #### [facility] [address] [place], [address] Glucose measurement at 2 hernesto rs post-dose gestational glucose tolerance testOrdered By: Indiana Lazo on 11-16-2024 Glucose [Mass/Vol] 120 mg/dL 70-140 [facility] HIVon 11-16-2024 HIV Non-Reactive Normal Nonreactive [facility] Comment on above: Result Comment: Non- Reactive Reactive Repeatedly reactive samples must be confirmed according to CDC recommended confirmatory algorithms. The subresults for either HIVAG or AHIV can be used as an aid in the selection of the confirmation algorithm for reactive samples. Send out specimens with Reactive results to [facility] for confirmation. Order the HIV antibody detection and differentiation: lc#[id number] Performed By: #### L 501.0250, L3890.6006, L509.8002, L100.0100 #### [facility] [place], [address] Hematocrit Auto (Bld) [Volum e fraction]Ordered By: Indiana Lazo on 11-16-2024 Hematocrit (Bld) [Volume fraction] 32.9 % Low 37-47 [facility] Hemoglobin measurementOrdere d By: Indiana Lazo on 11-16-2024 Hemoglobin (Bld) [Mass/Vol] 10.9 g/dL Low 12.0-15.0 [facility] Immature granulocytes/100 WB C Auto (Bld)Ordered By: Indiana Lazo on 11-16-2024 Immature granulocytes/100 WBC (Bld) 0.700 % 0.0-0.9 [facility] Comment on above: IG% - Immature Granu locytes (promyelocytes, myelocytes and metamyelocytes) > 1% indicates that a LEFT SHIFT is Present. MCV (mean corpuscular volume ) determinationOrdered By: Indiana Lazo on 11-16-2024 MCV (RBC) [Entitic vol] 82.5 fL 81-99 [facility] Mean corpuscular hemoglobin (MCH) determinationOrdered By: Indiana Lazo on 11-16-2024 MCH (RBC) [Entitic mass] 27.3 pg 27.0-32.0 [facility] Mean corpuscular hemoglobin concentration (MCHC) determinationOrdered By: Indiana Lazo on 11-16-2024 MCHC (RBC) [Mass/Vol] 33.1 g/dL 32-36 [facility] Mean platelet volume determi nationOrdered By: Indiana Lazo on 11-16-2024 Platelet mean volume (Bld) [Entitic vol] 12.8 fL High 6.2-12.0 [facility] Monocyte percentageOrdered B y: Indiana Lazo on 11-16-2024 Monocytes/100 WBC (Bld) 4.5 % 0-10 [facility] Neutrophil percentageOrdered By: Indiana Lazo on 11-16-2024 Neutrophils/100 WBC (Bld) 78.0 % High 47-70 [facility] No Panel InformationOrdered By: Indiana Lazo on 11-16-2024 HIV (1&2) Antibody Non-Reactive Nonreactive [facility] Comment on above: Non-ReactiveReactive Repeatedly reactive samples must be confirmed according to CDC recommended confirmatory algorithms. The subresults for either HIVAG or AHIV can be used as an aid in the selection of the confirmation algorithm for reactive samples.Send out specimens with Reactive results to [facility] for confirmation.Order the HIV antibody detection and differentiation: #[id number] Nucleated red blood cell per centageOrdered By: Indiana Lazo on 11-16-2024 Nucleated RBC/100 WBC (Bld) [Ratio] 0 % 0-5 [facility] Fireman Office Visit Reporton 11-16-2024 Fireman Office Visit Report [facility] [address], [address] [place] [address] OFFICE VISIT Date of Service: 11/16/24 MR#: [id number] Acct: [id number] Name: LEONOR CAMACHO Rep #: [id number] : 1990 Provider: Dr. 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 Chantelle Hyman Delivery Date: 04/09/21 Last [...] dis cu (more content not included)... Normal [facility] Platelet countOrdered By: Farhad Lazo on 11-16-2024 Platelets (Bld) [#/Vol] 183 10*3/uL 150-450 [facility] RBC Auto (Bld) [#/Vol]Ordere d By: Indiana Lazo on 11-16-2024 RBC (Bld) [#/Vol] 3.99 10*6/uL Low 4.2-5.4 [facility] Syphilis Antibodieson 2024 Syphilis Abs Non-Reactive Normal Nonreactive [facility] Comment on above: Performed By: #### L 501.0250, L3890.6006, L509.8002, L100.0100 #### [facility] [place], [address] White blood cell (WBC) count Ordered By: Indiana Lazo on 11-16-2024 WBC (Bld) [#/Vol] 13.3 10*3/uL High 4.4-11.0 [facility] Laboratory - Chemistry and C hemistry - challengeOrdered By: Valorie Miller on 10-26-2024 Glucose Ql (U) Negative [facility] Laboratory - UrinalysisOrder ed By: Valorie Miller on 10-26-2024 Protein Ql (U) Negative [facility] Fireman Office Visit Reporton 10-26-2024 Fireman Office Visit Report [facility]'[address], [address] [place] [address] OFFICE VISIT Date of Service: 10/26/24 MR#: [id number] Acct: [id number] Name: LEONOR CAMACHO Rep #: [id number] : 1990 Provider: Dr. 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 Chantelle Hyman Delivery Date: 04/09/21 Last [...] long dis (more content not included)... Normal [facility] Laboratory - Chemistry and C hemistry - challengeOrdered By: Indiana Lazo on 09-30-2024 Glucose Ql (U) Negative [facility] Laboratory - UrinalysisOrder ed By: Indiana Lazo on 09-30-2024 Protein Ql (U) Negative [facility] Fireman Office Visit Reporton 09-30-2024 Fireman Office Visit Report [facility]'s [address], [address] [place] [address] OFFICE VISIT Date of Service: 09/30/24 MR#: [id number] Acct: [id number] Name: LEONOR CAMACHO Rep #: [id number] : 1990 Provider: RICHIE Valderrama ams Age/Sex: 33/F Location: [facility] [place] Status: Signed Intake Vital Signs 08/03/24 08:31 09/06/24 10:56 09/30/24 08:50 Height 5 ft 2 in 5 ft 2 in 5 ft 2 in Weight: 157 lb 159 lb 6 oz 162 lb 4 oz BMI 28.7 29.1 29.7 BP 126/84 H 117/77 124/82 H Intake Visit Reasons: 23wk ob Chief Complaint: 23wk OB 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 Chantelle Hyman Delivery Date: 04/09/21 Last [...] that th (more content not included)... Normal [facility] Laboratory - Chemistry and C hemistry - challengeOrdered By: Valorie Miller on 09-06-2024 Glucose Ql (U) Negative [facility] Laboratory - UrinalysisOrder ed By: Valorie Miller on 09-06-2024 Protein Ql (U) Negative [facility] Fireman Office Visit Reporton 09-06-2024 Fireman Office Visit Report [facility]'s [address], [address] [place] [address] OFFICE VISIT Date of Service: 09/06/24 MR#: [id number] Acct: [id number] Name: LEONOR CAMACHO Rep #: [id number] : 1990 Provider: Dr. 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 Chantelle Hyman Delivery Date: 04/09/21 Last [...] after del (more content not included)... Normal [facility] Laboratory - Chemistry and C hemistry - challengeOrdered By: John Ariza on 08-03-2024 Glucose Ql (U) Negative [facility] Laboratory - UrinalysisOrder ed By: John Ariza on 08-03-2024 Protein Ql (U) Negative [facility] Fireman Office Visit Reporton 08-03-2024 Fireman Office Visit Report [facility]'s [address], [address] [place] [address] OFFICE VISIT Date of Service: 08/03/24 MR#: [id number] Acct: [id number] Name: LEONOR CAMACHO Rep #: [id number] : 1990 Provider: JOSETTE franco Age/Sex: 33/F Location: [facility] [place] Status: Signed Intake Vital Signs 06/29/24 21:24 07/07/24 14:50 08/03/24 08:31 Height 5 ft 2 in 5 ft 2 in 5 ft 2 in Weight: 157 lb BMI 28.7 BP 126/84 H Intake Visit Reasons: 15wk OB Chief Complaint: 15 Week OB 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 Chantelle Hyman Delivery Date: 04/09/21 Last [...] Toxoplasmosis P (more content not included)... Normal [facility] PAP IG HPV APTIMA 16/18,45on 07-12-2024 ADEQ Comment Normal . [facility] Comment on above: Order Comment: Marily hernandez Comment: [id number] Comment: No. of containers..01 ThinPrep Vial Result Comment: Sati sfactory for evaluation. Endocervical and/or squamous metaplastic cells (endocervical component) are present. Performed By: #### M 100.2200, L7000.1800, L7400.0280 ####[facility] [address] [place], [place], [address] COMM . Normal . [facility] Comment on above: Order Comment: Marily hernandez Comment: [id number] Comment: No. of containers..01 ThinPrep Vial Performed By: #### M 100.2200, L7000.1800, L7400.0280 ####[facility] [address] [place], [place], [id number] COMMENT Comment Normal . [facility] Comment on above: Order Comment: Marily hernandez Comment: [id number] Comment: No. of containers..01 ThinPrep Vial Result Comment: This liquid based ThinPrep(R) pap test was screened with the use of an image guided system. Performed By: #### M 100.2200, L7000.1800, L7400.0280 ####[facility] [address] [place], [address] DIAG Comment Normal . [facility] Comment on above: Order Comment: Speci men Comment: [id number] Comment: No. of containers..01 ThinPrep Vial Result Comment: NEGA TIVE FOR INTRAEPITHELIAL LESION OR MALIGNANCY. Performed By: #### M 100.2200, L7000.1800, L7400.0280 ####[facility] [address] [place], [address] HPV APTIMA, HR Negative Normal Negative [facility] Comment on above: Order Comment: Speci men Comment: [id number] Comment: No. of containers..01 ThinPrep Vial Result Comment: This nucleic acid amplification test detects fourteen high- risk HPV types (16,18,31,33,35,39,45,51,52,56,58,59,66,68) without differentiation. Performed By: #### M 100.2200, L7000.1800, L7400.0280 ####[facility] [address] [place], [address] HPV Antoinette Rfx Comment Normal . [facility] Comment on above: Order Comment: Speci men Comment: [id number] Comment: No. of containers..01 ThinPrep Vial Result Comment: Katelint stephan not met, HPV Genotype not performed. Performed at: - [address] [id number] Proof Operator: Noelle Sorto MD, Phone: [phone] Performed at: = - [facility] [id number] Proof Operator: Noelle Sorto MD, Phone: [phone] Performed By: #### M 100.2200, L7000.1800, L7400.0280 ####[facility] [address] [place], [address] PAPSMR Comment Normal . [facility] Comment on above: Order Comment: Speci men Comment: [id number] Comment: No. of containers..01 ThinPrep Vial Result Comment: The Pap smear is a screening test designed to aid in the detection of premalignant and malignant conditions of the uterine cervix. It is not a diagnostic procedure and should not be used as the sole means of detecting cervical cancer. Both false-positive and false-negative reports do occur. Performed By: #### M 100.2200, L7000.1800, L7400.0280 ####[facility] [address] [place], [address] PERFORM Comment Normal . [facility] Comment on above: Order Comment: Speci men Comment: [id number] Comment: No. of containers..01 ThinPrep Vial Result Comment: Ludivina Cedillo, Principal Cloud Architect (ASCP) Performed By: #### M 100.2200, L7000.1800, L7400.0280 ####[facility] [address] [place], [address] Chlamydia/GC JOVITA aptimaon CHLAMY,NUC ACID Negative Normal Negative [facility] Comment on above: Performed By: #### M 100.2200, L7000.1800, L7400.0280 ####[facility] [address] [place], [address] GC BY NUC ACID Negative Normal Negative [facility] Comment on above: Result Comment: Perf ormed at: =G - [facility] [address] [place] [id number] Proof Operator: Noelle Sorto MD, Phone: [phone] Performed By: #### M 100.2200, L7000.1800, L7400.0280 ####[facility] [address] [place], [address] Urine Cultureon 07-08-2024 URC Culture exhibits no growth. Normal [facility] Comment on above: Performed By: #### M 100.2200, L7000.1800, L7400.0280 ####[facility] [address] [place], [address] Absolute lymphocyte countOrd ered By: Cassandra Chantelle on 07-07-2024 Lymphocytes Auto (Unsp spec) [#/Vol] 1.95 10*3/uL 0.83-4.51 [facility] Absolute neutrophil countOrd ered By: Cassandra Lockhart on 07-07-2024 Neutrophils (Bld) [#/Vol] 7.0 10*3/uL 2.0-7.7 [facility] Automated lymphocyte count a s percentage of total leukocytesOrdered By: Cassandra Lockhart on 07-07-2024 Lymphocytes/100 WBC Auto (Unsp spec) 20.5 % 19-41 [facility] Basophil percentageOrdered B y: Cassandra Chantelle on 07-07-2024 Basophils/100 WBC (Bld) 0.2 % 0-1 [facility] CBC W/Diff, Automatedon 06-23 Absolute Lymph 1.95 X10 3/uL Normal 0.83-4.51 [facility] Comment on above: Performed By: #### L 509.8002, L3890.6006, L100.0100, L3890.6301, L509.4006, L501.9985, L3890.6102, BTS, L900.0098 ####[facility] [address] [place], [address] Absolute Neut 7.0 X10 3/uL Normal 2.0-7.7 [facility] Comment on above: Performed By: #### L 509.8002, L3890.6006, L100.0100, L3890.6301, L509.4006, L501.9985, L3890.6102, BTS, L900.0098 ####[facility] [address] [place], [address] Basophils/100 WBC (Bld) 0.2 % Normal 0-1 [facility] Comment on above: Performed By: #### L 509.8002, L3890.6006, L100.0100, L3890.6301, L509.4006, L501.9985, L3890.6102, BTS, L900.0098 ####[facility] [address] [place], [address] Eosinophils/100 WBC (Bld) 0.4 % Normal 0-5 [facility] Comment on above: Performed By: #### L 509.8002, L3890.6006, L100.0100, L3890.6301, L509.4006, L501.9985, L3890.6102, BTS, L900.0098 ####[facility] [address] [place], [address] Erythrocyte distribution width (RBC) [Ratio] 13.5 % Normal 11.6-14.6 [facility] Comment on above: Performed By: #### L 509.8002, L3890.6006, L100.0100, L3890.6301, L509.4006, L501.9985, L3890.6102, BTS, L900.0098 ####[facility] [address] [place], [address] Hematocrit (Bld) [Volume fraction] 38.7 % Normal 37-47 [facility] Comment on above: Performed By: #### L 509.8002, L3890.6006, L100.0100, L3890.6301, L509.4006, L501.9985, L3890.6102, BTS, L900.0098 ####[facility] [address] [place], [address] Hemoglobin (Bld) [Mass/Vol] 13.0 g/dL Normal 12.0-15.0 [facility] Comment on above: Performed By: #### L 509.8002, L3890.6006, L100.0100, L3890.6301, L509.4006, L501.9985, L3890.6102, BTS, L900.0098 ####[facility] [address] [place], [address] IG% 0.300 Normal 0.0-0.9 [facility] Comment on above: Result Comment: IG% - Immature Granulocytes (promyelocytes, myelocytes and metamyelocytes) > 1% indicates that a LEFT SHIFT is Present. Performed By: #### L 509.8002, L3890.6006, L100.0100, L3890.6301, L509.4006, L501.9985, L3890.6102, BTS, L900.0098 ####[facility] [address] [place], [address] Lymphocytes/100 WBC (Bld) 20.5 % Normal 19-41 [facility] Comment on above: Performed By: #### L 509.8002, L3890.6006, L100.0100, L3890.6301, L509.4006, L501.9985, L3890.6102, BTS, L900.0098 ####[facility] [address] [place], [address] MCH (RBC) [Entitic mass] 28.6 pg Normal 27.0-32.0 [facility] Comment on above: Performed By: #### L 509.8002, L3890.6006, L100.0100, L3890.6301, L509.4006, L501.9985, L3890.6102, BTS, L900.0098 ####[facility] [address] [place], [address] MCHC (RBC) [Mass/Vol] 33.6 g/dL Normal 32-36 [facility] Comment on above: Performed By: #### L 509.8002, L3890.6006, L100.0100, L3890.6301, L509.4006, L501.9985, L3890.6102, BTS, L900.0098 ####[facility] [address] [place], [address] MCV (RBC) [Entitic vol] 85.2 fL Normal 81-99 [facility] Comment on above: Performed By: #### L 509.8002, L3890.6006, L100.0100, L3890.6301, L509.4006, L501.9985, L3890.6102, BTS, L900.0098 ####[facility] [address] [place], [address] Monocytes/100 WBC (Bld) 4.7 % Normal 0-10 [facility] Comment on above: Performed By: #### L 509.8002, L3890.6006, L100.0100, L3890.6301, L509.4006, L501.9985, L3890.6102, BTS, L900.0098 ####[facility] [address] [place], [address] Neutrophils/100 WBC (Bld) 73.9 % High 47-70 [facility] Comment on above: Performed By: #### L 509.8002, L3890.6006, L100.0100, L3890.6301, L509.4006, L501.9985, L3890.6102, BTS, L900.0098 ####[facility] [address] [place], [address] Nucleated RBC (Bld) [#/Vol] 0 10*3/uL Normal 0-5 [facility] Comment on above: Performed By: #### L 509.8002, L3890.6006, L100.0100, L3890.6301, L509.4006, L501.9985, L3890.6102, BTS, L900.0098 ####[facility] [address] [place], [address] Platelet mean volume (Bld) [Entitic vol] 12.2 fL High 6.2-12.0 [facility] Comment on above: Performed By: #### L 509.8002, L3890.6006, L100.0100, L3890.6301, L509.4006, L501.9985, L3890.6102, BTS, L900.0098 ####[facility] [address] [place], [address] Platelets (Bld) [#/Vol] 194 10*3/uL Normal 150-450 [facility] Comment on above: Performed By: #### L 509.8002, L3890.6006, L100.0100, L3890.6301, L509.4006, L501.9985, L3890.6102, BTS, L900.0098 ####[facility] [address] [facility] [place], [address] RBC (Bld) [#/Vol] 4.54 10*6/uL Normal 4.2-5.4 [facility] Comment on above: Performed By: #### L 509.8002, L3890.6006, L100.0100, L3890.6301, L509.4006, L501.9985, L3890.6102, BTS, L900.0098 ####[facility] [address] [place], [address] RDW SD 42.0 fl Normal 35.1-43.9 [facility] Comment on above: Performed By: #### L 509.8002, L3890.6006, L100.0100, L3890.6301, L509.4006, L501.9985, L3890.6102, BTS, L900.0098 ####[facility] [address] [place], [place], [address] WBC (Bld) [#/Vol] 9.5 10*3/uL Normal 4.4-11.0 [facility] Comment on above: Performed By: #### L 509.8002, L3890.6006, L100.0100, L3890.6301, L509.4006, L501.9985, L3890.6102, BTS, L900.0098 ####[facility] [address] [place], [place], [address] Cervical or vaginal specimen microscopic examination by liquid based cytology (reportOrdered By: Cassandra Lockhart on 07-07-2024 Cytology report Cyto stain.thin prep Doc (Cvx/Vag) Comment . [facility] Comment on above: Criteria not met, HP V Genotype not performed.Performed at: [facility] [address] [id number] Director: Noelle Sorto MD, Phone: [phone] at: =[facility] [address] [id number] Director: Noelle Sorto MD, Phone: [phone] Cervical or vagninal specime n microscopic examination by cytology stain (reported asOrdered By: Cassandra Lockhart on 07-07-2024 Cytology report Cyto stain Doc (Cvx/Vag) Comment . [facility] Comment on above: The Pap smear is [...] rRNA JOVITA+probe Ql (Unsp spec) Negative Negative [facility] Detection in cervical specim en of any of human papilloma virus (HPV) 16, 18, 31, 33,Ordered By: Cassandra Lockhart on 07-07-2024 HPV 16+18+31+33+35+39+45+51+ 52+56+58+59+66+68 DNA Probe+sig amp Ql (Cvx) Negative Negative [facility] Comment on above: This nucleic acid am plification test detects fourteen high-risk HPV types (16,18,31,33,35,39,45,51,52,56,58,59,66,68)without differentiation. Eosinophil percentageOrdered By: Cassandra Lockhart on 07-07-2024 Eosinophils/100 WBC (Bld) 0.4 % 0-5 [facility] Erythrocyte distribution wid th ratioOrdered By: Cassandra Lockhart on 07-07-2024 Erythrocyte distribution width (RBC) [Ratio] 13.5 % 11.6-14.6 [facility] Erythrocyte distribution wid th standard deviationOrdered By: Cassandra Lockhart on 07-07-2024 Erythrocyte distribution width (RBC) [Ratio] 42.0 fl 35.1-43.9 [facility] HIVon 07-07-2024 HIV Non-Reactive Normal Nonreactive [facility] Comment on above: Result Comment: Non- Reactive Reactive Repeatedly reactive samples must be confirmed according to CDC recommended confirmatory algorithms. The subresults for either HIVAG or AHIV can be used as an aid in the selection of the confirmation algorithm for reactive samples. Send out specimens with Reactive results to [facility] for confirmation. Order the HIV antibody detection and differentiation: [id number] Performed By: #### L 509.8002, L3890.6006, L100.0100, L3890.6301, L509.4006, L501.9985, L3890.6102, BTS, L900.0098 ####[facility] [address] [place], [address] Hematocrit Auto (Bld) [Volum e fraction]Ordered By: Cassandra Lockhart on 07-07-2024 Hematocrit (Bld) [Volume fraction] 38.7 % 37-47 [facility] Hemoglobin A1con 07-07-2024 HbA1c (Bld) [Mass fraction] 5.1 % Normal <=5.6 [facility] Comment on above: Result Comment: Norm al < 5.7 % Prediabetic 5.7 - 6.4 % Diabetic >or= 6.5 % Please note range changes. Performed By: #### L 509.8002, L3890.6006, L100.0100, L3890.6301, L509.4006, L501.9985, L3890.6102, BTS, L900.0098 ####[facility] [address] [place], [address] Hemoglobin A1c percentageOrd ered By: Cassandra Lockhart on 07-07-2024 HbA1c (Bld) [Mass fraction] 5.1 % <5.7 [facility] Comment on above: Normal < 5.7 % Predi abetic 5.7 - 6.4 % Diabetic >or= 6.5 % Please note range changes. Hemoglobin measurementOrdere d By: Cassandra Lockhart on 07-07-2024 Hemoglobin (Bld) [Mass/Vol] 13.0 g/dL 12.0-15.0 [facility] Hepatitis C Antibodyon 07-07 Hepatitis C Ab Non-Reactive Normal Nonreactive [facility] Comment on above: Result Comment: Reac tive: Presumptive evidence of antibodies to HCV. Follow CDC recommendations for supplemental testing. Non-Reactive: Antibodies to HCV were not detected; does not exclude the possibility of exposure to HCV Reactive Results are presumptive evidence of antibodies to HCV. Follow CDC recommendations for supplemental testing. Order confirmation testing: HCV Quant by PCR testing - HCVPCR #[id number] Non Reactive: < 0.8 Equivocal: >/= 0.8 to < 1.0 Reactive: >/= 1.0 The CDC requires that a reactive/equivocal HCV antibody result be sent out for confirmation. HCV Quant by PCR testing. Performed By: #### L 509.8002, L3890.6006, L100.0100, L3890.6301, L509.4006, L501.9985, L3890.6102, BTS, L900.0098 ####[facility] [address] [place], [place], [address] Immature granulocytes/100 WB C Auto (Bld)Ordered By: Cassandra Lockhart on 07-07-2024 Immature granulocytes/100 WBC (Bld) 0.300 % 0.0-0.9 [facility] Comment on above: IG% - Immature Granu locytes (promyelocytes, myelocytes and metamyelocytes) > 1% indicates that a LEFT SHIFT is Present. L3890.6102on 07-07-2024 HEP B Surf Ag Non-Reactive Normal Nonreactive [facility] Comment on above: Result Comment: Reac tive: Presumptive evidence of HBV. Repeatedly reactive samples must be confirmed using a neutralization test ([employer] HBsAg Confirmatory Test) Non-Reactive: HBsAg not detected; does not exclude the possibility of exposure to HBV Performed By: #### L 509.8002, L3890.6006, L100.0100, L3890.6301, L509.4006, L501.9985, L3890.6102, BTS, L900.0098 ####[facility] [address] [facility] [place], [place], [address] L509.4006on 07-07-2024 Rubella IgG REAC Normal Nonreactive [facility] Comment on above: Result Comment: Anti body Result: Interpretation Non-Reactive: Non-Immune Reactive: Immune The following results were obtained with the [employer] Rubella IgG assay. Results from assays of other manufacturers cannot be used interchangeably. Performed By: #### L 509.8002, L3890.6006, L100.0100, L3890.6301, L509.4006, L501.9985, L3890.6102, BTS, L900.0098 ####[facility] [address] [place], [place], [address] Laboratory - CytologyOrdered By: Cassandra Lockhart on 07-07-2024 Principal Cloud Architect Cyto stain Nom (Cvx/Vag) [ID] Comment . [facility] Comment on above: Teresa Cedillo Cytol ogjatin (ASCP) Laboratory - Microbiology an d Antimicrobial susceptibilityOrdered By: Cassandra Lockhart on 07-07-2024 HBV surface Ag Ql (S) Non-Reactive Nonreactive [facility] Comment on above: Reactive: Presumptiv e evidence of HBV. Repeatedly reactive samples must be confirmed using a neutralization test ([employer] HBsAg Confirmatory Test)Non-Reactive: HBsAg not detected; does not exclude the possibility of exposure to HBV Laboratory - Miscellaneous t estsOrdered By: Cassandra Lockhart on 07-07-2024 Service comment (Unsp spec) [Interp] . . [facility] MCV (mean corpuscular volume ) determinationOrdered By: Cassandra Lockhart on 07-07-2024 MCV (RBC) [Entitic vol] 85.2 fL 81-99 [facility] Mean corpuscular hemoglobin (MCH) determinationOrdered By: Cassandra Lockhart on 07-07-2024 MCH (RBC) [Entitic mass] 28.6 pg 27.0-32.0 [facility] Mean corpuscular hemoglobin concentration (MCHC) determinationOrdered By: Cassandra Lockhart on 07-07-2024 MCHC (RBC) [Mass/Vol] 33.6 g/dL 32-36 [facility] Mean platelet volume determi nationOrdered By: Cassandra Lockhart on 07-07-2024 Platelet mean volume (Bld) [Entitic vol] 12.2 fL High 6.2-12.0 [facility] Monocyte percentageOrdered B y: Cassandra Lockhart on 07-07-2024 Monocytes/100 WBC (Bld) 4.7 % 0-10 [facility] NATERAon 07-07-2024 NATURA SEE SCANNED REPORT Normal [facility] Comment on above: Order Comment: Comme nts: NIPT w/gender Performed By: #### L 509.8002, L3890.6006, L100.0100, L3890.6301, L509.4006, L501.9985, L3890.6102, BTS, L900.0098 ####[facility] [address] [place], [place], [id number] Neisseria gonorrhoeae nuclei c acid detection by amplified probe techniqueOrdered By: Cassandra Lockhart on 07-07-2024 N. gonorrhoeae DNA JOVITA+probe Ql (Unsp spec) Negative Negative [facility] Comment on above: Performed at: [address] [place] [id number] Director: Noelle Sorto MD, Phone: [phone] Neutrophil percentageOrdered By: Cassandra Lockhart on 07-07-2024 Neutrophils/100 WBC (Bld) 73.9 % High 47-70 [facility] No Panel InformationOrdered By: Cassandra Lockhart on 07-07-2024 Pap Smear Specimen Adequacy Comment . [facility] Comment on above: Satisfactory for chris luation. Endocervical and/or squamous metaplasticcells (endocervical component) are present. HIV (1&2) Antibody Non-Reactive Nonreactive [facility] Comment on above: Non-ReactiveReactive Repeatedly reactive samples must be confirmed according to CDC recommended confirmatory algorithms. The subresults for either HIVAG or AHIV can be used as an aid in the selection of the confirmation algorithm for reactive samples.Send out specimens with Reactive results to [facility] for confirmation.Order the HIV antibody detection and differentiation: #[id number] Nucleated red blood cell per centageOrdered By: Cassandra Lockhart on 07-07-2024 Nucleated RBC/100 WBC (Bld) [Ratio] 0 % 0-5 [facility] Fireman Office Visit Reporton 07-07-2024 Fireman Office Visit Report [facility] [address], [address] [place] [address] OFFICE VISIT Date of Service: 07/07/24 MR#: [id number] Acct: [id number] Name: LEONOR CAMACHO Rep #: [id number] : 1990 Provider: Dr. 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 Chantelle Hyman Delivery Date: 04/09/21 Last [...] Recurrent Pregna (more content not included)... Normal [facility] Platelet countOrdered By: Karen Lockhart on 07-07-2024 Platelets (Bld) [#/Vol] 194 10*3/uL 150-450 [facility] RBC Auto (Bld) [#/Vol]Ordere d By: Cassandra Lockhart on 07-07-2024 RBC (Bld) [#/Vol] 4.54 10*6/uL 4.2-5.4 [facility] Syphilis Antibodieson 2024 Syphilis Abs Non-Reactive Normal Nonreactive [facility] Comment on above: Performed By: #### L 509.8002, L3890.6006, L100.0100, L3890.6301, L509.4006, L501.9985, L3890.6102, BTS, L900.0098 ####[facility] [address] [place], [place], [id number] Type AND Screenon 07-07-2024 Ab SCREEN GEL Negative Normal [facility] Comment on above: Order Comment: PN Performed By: #### L 509.8002, L3890.6006, L100.0100, L3890.6301, L509.4006, L501.9985, L3890.6102, BTS, L900.0098 ####[facility] [address] [place], [place], [phone] Urine cultureOrdered By: Rich Lockhart on 07-07-2024 Bacteria identified Cx Nom (U) Culture exhibits no growth. [facility] White blood cell (WBC) count Ordered By: Cassandra Lockhart on 07-07-2024 WBC (Bld) [#/Vol] 9.5 10*3/uL 4.4-11.0 [facility] Absolute lymphocyte countOrd ered By: Wilbertlucero Butler on 06-29-2024 Lymphocytes Auto (Unsp spec) [#/Vol] 3.20 10*3/uL 0.83-4.51 [facility] Absolute neutrophil countOrd ered By: Wilbertlucero Butler on 06-29-2024 Neutrophils (Bld) [#/Vol] 7.3 10*3/uL 2.0-7.7 [facility] Automated lymphocyte count a s percentage of total leukocytesOrdered By: Wilbert Butler on 06-29-2024 Lymphocytes/100 WBC Auto (Unsp spec) 28.3 % 19-41 [facility] Basophil percentageOrdered B y: Wilbert Butler on 06-29-2024 Basophils/100 WBC (Bld) 0.4 % 0-1 [facility] CBC W/Diff, Automatedon Absolute Lymph 3.20 X10 3/uL Normal 0.83-4.51 [facility] Comment on above: Performed By: #### L 100.0100 ####[facility] [address] [place], [address] Absolute Neut 7.3 X10 3/uL Normal 2.0-7.7 [facility] Comment on above: Performed By: #### L 100.0100 ####[facility] [address] [place], [address] Basophils/100 WBC (Bld) 0.4 % Normal 0-1 [facility] Comment on above: Performed By: #### L 100.0100 ####[facility] [address] [place], [address] Eosinophils/100 WBC (Bld) 0.6 % Normal 0-5 [facility] Comment on above: Performed By: #### L 100.0100 ####[facility] [address] [place], [address] Erythrocyte distribution width (RBC) [Ratio] 14.5 % Normal 11.6-14.6 [facility] Comment on above: Performed By: #### L 100.0100 ####[facility] [address] [place], [address] Hematocrit (Bld) [Volume fraction] 36.4 % Low 37-47 [facility] Comment on above: Performed By: #### L 100.0100 ####[facility] [address] [place], [address] Hemoglobin (Bld) [Mass/Vol] 12.4 g/dL Normal 12.0-15.0 [facility] Comment on above: Performed By: #### L 100.0100 ####[facility] [address] [place], [address] IG% 0.400 Normal 0.0-0.9 [facility] Comment on above: Result Comment: IG% - Immature Granulocytes (promyelocytes, myelocytes and metamyelocytes) > 1% indicates that a LEFT SHIFT is Present. Performed By: #### L 100.0100 ####[facility] [address] [place], [address] Lymphocytes/100 WBC (Bld) 28.3 % Normal 19-41 [facility] Comment on above: Performed By: #### L 100.0100 ####[facility] [address] [place], [address] MCH (RBC) [Entitic mass] 28.8 pg Normal 27.0-32.0 [facility] Comment on above: Performed By: #### L 100.0100 ####[facility] [address] [place], [address] MCHC (RBC) [Mass/Vol] 34.1 g/dL Normal 32-36 [facility] Comment on above: Performed By: #### L 100.0100 ####[facility] [address] [place], [address] MCV (RBC) [Entitic vol] 84.7 fL Normal 81-99 [facility] Comment on above: Performed By: #### L 100.0100 ####[facility] [address] [place], [address] Monocytes/100 WBC (Bld) 5.9 % Normal 0-10 [facility] Comment on above: Performed By: #### L 100.0100 ####[facility] [address] [place], [address] Neutrophils/100 WBC (Bld) 64.4 % Normal 47-70 [facility] Comment on above: Performed By: #### L 100.0100 ####[facility] [address] [place], [address] Nucleated RBC (Bld) [#/Vol] 0 10*3/uL Normal 0-5 [facility] Comment on above: Performed By: #### L 100.0100 ####[facility] [address] [place], [address] Platelet mean volume (Bld) [Entitic vol] 13.3 fL High 6.2-12.0 [facility] Comment on above: Performed By: #### L 100.0100 ####[facility] [address] [place], [address] Platelets (Bld) [#/Vol] 191 10*3/uL Normal 150-450 [facility] Comment on above: Performed By: #### L 100.0100 ####[facility] [address] [place], [address] RBC (Bld) [#/Vol] 4.30 10*6/uL Normal 4.2-5.4 [facility] Comment on above: Performed By: #### L 100.0100 ####[facility] [address] [place], [address] RDW SD 43.1 fl Normal 35.1-43.9 [facility] Comment on above: Performed By: #### L 100.0100 ####[facility] [address] [place], [address] WBC (Bld) [#/Vol] 11.3 10*3/uL High 4.4-11.0 [facility] Comment on above: Performed By: #### L 100.0100 ####[facility] [address] [place], [address] Emergency Department Summary on 06-29-2024 Emergency Department Summary [facility] Medical Records Department [address] [place] [address] Emergency Department Summary 06/29/24 MR#: [id number] Acct: [id number] Name: LEONOR CAMACHO Rep #: [id number] : 1990 33 From: Wilbert Butler MD [...] she was advised to come be evaluated. 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 Normal [facility] Eosinophil percentageOrdered By: Wilbert Butler on 06-29-2024 Eosinophils/100 WBC (Bld) 0.6 % 0-5 [facility] Erythrocyte distribution wid th ratioOrdered By: Wilbert Butler on 06-29-2024 Erythrocyte distribution width (RBC) [Ratio] 14.5 % 11.6-14.6 [facility] Erythrocyte distribution wid th standard deviationOrdered By: Wilbert Butler on 06-29-2024 Erythrocyte distribution width (RBC) [Ratio] 43.1 fl 35.1-43.9 [facility] Hematocrit Auto (Bld) [Volum e fraction]Ordered By: Wilbert Butler on 06-29-2024 Hematocrit (Bld) [Volume fraction] 36.4 % Low 37-47 [facility] Hemoglobin measurementOrdere d By: Wilbert Butler on 06-29-2024 Hemoglobin (Bld) [Mass/Vol] 12.4 g/dL 12.0-15.0 [facility] Immature granulocytes/100 WB C Auto (Bld)Ordered By: Wilbert Butler on 06-29-2024 Immature granulocytes/100 WBC (Bld) 0.400 % 0.0-0.9 [facility] Comment on above: IG% - Immature Granu locytes (promyelocytes, myelocytes and metamyelocytes) > 1% indicates that a LEFT SHIFT is Present. MCV (mean corpuscular volume ) determinationOrdered By: Wilbert Butler on 06-29-2024 MCV (RBC) [Entitic vol] 84.7 fL 81-99 [facility] Mean corpuscular hemoglobin (MCH) determinationOrdered By: Wilbert Butler on 06-29-2024 MCH (RBC) [Entitic mass] 28.8 pg 27.0-32.0 [facility] Mean corpuscular hemoglobin concentration (MCHC) determinationOrdered By: Wilbert Butler on 06-29-2024 MCHC (RBC) [Mass/Vol] 34.1 g/dL 32-36 [facility] Mean platelet volume determi nationOrdered By: Wilbert Butler on 06-29-2024 Platelet mean volume (Bld) [Entitic vol] 13.3 fL High 6.2-12.0 [facility] Monocyte percentageOrdered B y: Wilbert Butler on 06-29-2024 Monocytes/100 WBC (Bld) 5.9 % 0-10 [facility] Neutrophil percentageOrdered By: Wilbert Butler on 06-29-2024 Neutrophils/100 WBC (Bld) 64.4 % 47-70 [facility] Nucleated red blood cell per centageOrdered By: Wilbert Butler on 06-29-2024 Nucleated RBC/100 WBC (Bld) [Ratio] 0 % 0-5 [facility] Platelet countOrdered By: Jag Butler on 06-29-2024 Platelets (Bld) [#/Vol] 191 10*3/uL 150-450 [facility] RBC Auto (Bld) [#/Vol]Ordere d By: Wilbert Butler on 06-29-2024 RBC (Bld) [#/Vol] 4.30 10*6/uL 4.2-5.4 [facility] White blood cell (WBC) count Ordered By: Wilbert Butler on 06-29-2024 WBC (Bld) [#/Vol] 11.3 10*3/uL High 4.4-11.0 [facility] Absolute lymphocyte countOrd ered By: ED PROVIDER on 06-07-2024 Lymphocytes Auto (Unsp spec) [#/Vol] 1.59 10*3/uL 0.83-4.51 [facility] Absolute neutrophil countOrd ered By: ED PROVIDER on 06-07-2024 Neutrophils (Bld) [#/Vol] 9.5 10*3/uL High 2.0-7.7 [facility] Anion gap in Serum or Plasma Ordered By: ED PROVIDER on 06-07-2024 Anion gap [Moles/Vol] 11 mmol/L 5-15 [facility] Automated lymphocyte count a s percentage of total leukocytesOrdered By: ED PROVIDER on 06-07-2024 Lymphocytes/100 WBC Auto (Unsp spec) 13.3 % Low 19-41 [facility] BUN/creatinine ratioOrdered By: ED PROVIDER on 06-07-2024 Urea nitrogen/Creatinine [Mass ratio] 10.0 mg/mg 10-20 [facility] Basophil percentageOrdered B y: ED PROVIDER on 06-07-2024 Basophils/100 WBC (Bld) 0.3 % 0-1 [facility] Beta HCG ( test) Ql Ordered By: ED PROVIDER on 06-07-2024 Serum Test, Qualitative Negative [facility] Comment on above: CRITICAL VALUE MORENO D TO VINI RN (ER)06/07/24 6798 Ki Garcia.RESULTS READ BACK BY SAME. Bilirubin Test strip Ql (U)O rdered By: Heriberto Frazier on 06-07-2024 Bilirubin Ql (U) Negative Negative [facility] Bilirubin, totalOrdered By: ED PROVIDER on 06-07-2024 Bilirubin [Mass/Vol] 0.19 mg/dL Normal 0.00-1.30 [facility] Comment on above: Performed By: #### L 700.6800, L500.4050, L100.0100, L501.2450 ####[facility] [address] [place], [address] CBC W/Diff, Automatedon 04- PLT EST ADEQUATE Normal ADEQ [facility] Comment on above: Performed By: #### L 700.6800, L500.4050, L100.0100, L501.2450 ####[facility] [address] [place], [address] Carbon dioxide, total [Moles /volume] in Central venous bloodOrdered By: ED PROVIDER on 06-07-2024 CO2 [Moles/Vol] 25.2 mmol/L Normal 21.0-32.0 [facility] Comment on above: Performed By: #### L 700.6800, L500.4050, L100.0100, L501.2450 ####[facility] [address] [place], [address] Chloride assayOrdered By: ED PROVIDER on 06-07-2024 Chloride [Moles/Vol] 103 mmol/L Normal 98-108 [facility] Comment on above: Performed By: #### L 700.6800, L500.4050, L100.0100, L501.2450 ####[facility] [address] [place], [address] Comprehensive Metabolic Prof ilon 06-07-2024 ALK PHOS 115 U/L High 35-104 [facility] Comment on above: Performed By: #### L 700.6800, L500.4050, L100.0100, L501.2450 ####[facility] [address] [place], [address] BUN/CRE 10.0 RATIO Normal 10-20 [facility] Comment on above: Performed By: #### L 700.6800, L500.4050, L100.0100, L501.2450 ####[facility] [address] [place], [address] ECRCL 90.52 ml/min Normal 50-250 [facility] Comment on above: Performed By: #### L 700.6800, L500.4050, L100.0100, L501.2450 ####[facility] [address] [place], [address] GAP 11 Normal 5-15 [facility] Comment on above: Performed By: #### L 700.6800, L500.4050, L100.0100, L501.2450 ####[facility] [address] [place], [address] T PROT 7.7 g/dL Normal 5.9-8.4 [facility] Comment on above: Performed By: #### L 700.6800, L500.4050, L100.0100, L501.2450 ####[facility] [address] [place], [address] Comprehensive Metabolic Prof ilOrdered By: ED PROVIDER on 06-07-2024 AST [Catalytic activity/Vol] 17 U/L Normal <=31 [facility] Comment on above: Performed By: #### L 700.6800, L500.4050, L100.0100, L501.2450 ####[facility] [address] [place], [address] Emergency Department Summary on 06-07-2024 Emergency Department Summary [facility] Medical Records Department [address] [place] [address] Emergency Department Summary 06/07/24 MR#: [id number] Acct: [id number] Name: LEONOR CAMACHO Rep #: [id number] : 1990 33 From: Heriberto Frazier MD PCP: Dr. Miguel Gonzalez MD Status:REG ER Location: ED HPI History of Present Illness Chief Complaint: Abd Pain Narrative Narrative: 33-year-old female, G3, P2 presents at the direction of her FOOD SAFETY OFFICER's at [place] for evaluation for possible ectopic . She [...] tried to make an appointment with her FOOD SAFETY OFFICER but they states that she needs to be ruled out for an ectopic given that she has been having a few weeks of right pelvic pain that is intermittent. 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 Normal [facility] Eosinophil percentageOrdered By: ED PROVIDER on 06-07-2024 Eosinophils/100 WBC (Bld) 0.2 % 0-5 [facility] Epithelial cells.squamous LM Ql (Urine sed)Ordered By: Heriberto Frazier on 06-07-2024 Epithelial cells.squamous LM.HPF (Urine sed) [#/Area] 0 /[HPF] 5-10 [facility] Erythrocyte distribution wid th (RBC) [Ratio]Ordered By: ED PROVIDER on 06-07-2024 Erythrocyte distribution width (RBC) [Entitic vol] 41.8 fL 35.1-43.9 [facility] Erythrocyte distribution wid th ratioOrdered By: ED PROVIDER on 06-07-2024 Erythrocyte distribution width (RBC) [Ratio] 13.5 % 11.6-14.6 [facility] Erythrocyte distribution wid th standard deviationOrdered By: ED PROVIDER on 06-07-2024 Erythrocyte distribution width (RBC) [Ratio] 41.8 fl 35.1-43.9 [facility] Estimation of creatinine precious aranceOrdered By: ED PROVIDER on 06-07-2024 Estimated Creatinine Clearance Calc 90.52 ml/min 50-250 [facility] GFR/1.73 sq M.predicted melia g non-blacks MDRD (S/P/Bld) [Vol rate/Area]Ordered By: ED PROVIDER on 06-07-2024 Estimated GFR (MDRD) Non-Af Amer 95 >60 [facility] Comment on above: mL/min/1.73m2 CKD-EP I Creatinine Equation (2020) Glomerular filtration rate ( GFR) estimation/1.73 sq m using serum, plasma, or whole bOrdered By: ED PROVIDER on 06-07-2024 GFR/1.73 sq M.predicted among non-blacks MDRD (S/P/Bld) [Vol rate/Area] 95 mL/min/{1.73_m2} Normal >60 [facility] Comment on above: mL/min/1.73m2 CKD-EP I Creatinine Equation (2020) Result Comment: mL/m in/1.73m2 CKD-EPI Creatinine Equation (2020) Performed By: #### L 700.6800, L500.4050, L100.0100, L501.2450 ####[facility] [address] [place], [place], [id number] Glucose Ql (U)Ordered By: Lee Frazier on 06-07-2024 Urine Glucose (UA) Normal mg/dl Normal [facility] HCG ( test) QlOrder ed By: Isidro Moran on 06-07-2024 Human Chorionic Gonadotropin, Quant 50217 mIU/mL High <9 [facility] Comment on above: Gestational Age0.2-1 Week: 5-50 mIU/mL1-2 Weeks: 50-500 mIU/mL2-3 Weeks: 100-5000 mIU/mL3-4 Weeks: 500-10,000 mIU/mL4-5 Weeks:1000-50,000 mIU/mL5-6 Weeks: 10,000-100,000 mIU/mL6-8 Weeks: 15,000-200,000 mIU/mL2-3 Months:10,000-100,000 mIU/mL Hematocrit Auto (Bld) [Volum e fraction]Ordered By: ED PROVIDER on 06-07-2024 Hematocrit (Bld) [Volume fraction] 37.9 % 37-47 [facility] Hemoglobin measurementOrdere d By: ED PROVIDER on 06-07-2024 Hemoglobin (Bld) [Mass/Vol] 12.6 g/dL 12.0-15.0 [facility] Immature granulocytes/100 WB C Auto (Bld)Ordered By: ED PROVIDER on 06-07-2024 Immature granulocytes/100 WBC (Bld) 0.500 % 0.0-0.9 [facility] Comment on above: IG% - Immature Granu locytes (promyelocytes, myelocytes and metamyelocytes) > 1% indicates that a LEFT SHIFT is Present. Ketones Test strip Ql (U)Ord ered By: Heriberto Frazier on 06-07-2024 Ketones Ql (U) Negative Negative [facility] Lipase measurementOrdered By : ED PROVIDER on 06-07-2024 Lipase [Catalytic activity/Vol] 37 U/L Normal 13-75 [facility] Comment on above: Please note:LIPASE r evised [...] By: #### L 700.6800, L500.4050, L100.0100, L501.2450 ####[facility] [address] [place], [address] Lymphocytes Auto (Unsp spec) [#/Vol]Ordered By: ED PROVIDER on 06-07-2024 Lymphocytes (Bld) [#/Vol] 1.59 10*3/uL 0.83-4.51 [facility] Lymphocytes/100 WBC Auto (Un sp spec)Ordered By: ED PROVIDER on 06-07-2024 Lymphocytes/100 WBC (Bld) 13.3 % Low 19-41 [facility] MCV (mean corpuscular volume ) determinationOrdered By: ED PROVIDER on 06-07-2024 MCV (RBC) [Entitic vol] 84.6 fL 81-99 [facility] Mean corpuscular hemoglobin (MCH) determinationOrdered By: ED PROVIDER on 06-07-2024 MCH (RBC) [Entitic mass] 28.1 pg 27.0-32.0 [facility] Mean corpuscular hemoglobin concentration (MCHC) determinationOrdered By: ED PROVIDER on 06-07-2024 MCHC (RBC) [Mass/Vol] 33.2 g/dL 32-36 [facility] Mean platelet volume determi nationOrdered By: ED PROVIDER on 06-07-2024 Platelet mean volume (Bld) [Entitic vol] 12.1 fL High 6.2-12.0 [facility] Microscopic analysis of urin e for red blood cells (RBC)Ordered By: Heriberto Frazier on 06-07-2024 Microscopic analysis of urine for red blood cells (RBC) 0-5 SEEN /hpf 0-5 [facility] Urine RBC 0-5 SEEN /hpf 0-5 [facility] Monocyte percentageOrdered B y: ED PROVIDER on 06-07-2024 Monocytes/100 WBC (Bld) 6.3 % 0-10 [facility] Mucus LM Ql (Urine sed)Order ed By: Heriberto Frazier on 06-07-2024 Mucus Ql (Urine sed) 0 SEEN /hpf [facility] Neutrophil percentageOrdered By: ED PROVIDER on 06-07-2024 Neutrophils/100 WBC (Bld) 79.4 % High 47-70 [facility] Nitrite Test strip Ql (U)Ord ered By: Heriberto Frazier on 06-07-2024 Nitrite Ql (U) Negative Negative [facility] Nucleated red blood cell per centageOrdered By: ED PROVIDER on 06-07-2024 Nucleated RBC/100 WBC (Bld) [Ratio] 0 % 0-5 [facility] Platelet countOrdered By: ED PROVIDER on 06-07-2024 Platelets (Bld) [#/Vol] 198 10*3/uL 150-450 [facility] Platelet estimateOrdered By: ED PROVIDER on 06-07-2024 Platelets LM Ql (Bld) ADEQUATE ADEQ [facility] Platelets LM Ql (Bld)Ordered By: ED PROVIDER on 06-07-2024 Platelet Estimate ADEQUATE [facility] Potassium measurement (mass/ volume)Ordered By: ED PROVIDER on 06-07-2024 Potassium [Moles/Vol] 4.0 mmol/L Normal 3.3-5.1 [facility] Comment on above: Performed By: #### L 700.6800, L500.4050, L100.0100, L501.2450 ####[facility] [address] [place], [address] Potassium (Unsp spec) [Mass/Vol] 4.0 mmol/L 3.3-5.1 [facility] ,Serum,hCG Quali.on 06-07-2024 HCG, SERUM QUAL Positive Normal [facility] Comment on above: Result Comment: CRIT ICAL VALUE CALLED TO VINI RN (ER) 06/07/24 1535 Ki Garcia. RESULTS READ BACK BY SAME. Performed By: #### L 700.6800, L500.4050, L100.0100, L501.2450 ####[facility] [address] [place], [address] Protein Test strip Ql (U)Ord ered By: Heriberto Frazier on 06-07-2024 Protein Ql (U) 15 mg/dl High Negative [facility] RBC Auto (Bld) [#/Vol]Ordere d By: ED PROVIDER on 06-07-2024 RBC (Bld) [#/Vol] 4.48 10*6/uL 4.2-5.4 [facility] Serum beta-hCG test, qualita tiveOrdered By: ED PROVIDER on 06-07-2024 Beta HCG ( test) Ql Negative [facility] Comment on above: CRITICAL VALUE MORENO D TO VINI GOTTLIEB (ER)06/07/24 1535 Ki Garcia.RESULTS READ BACK BY SAME. Serum creatinine measurement (mass/volume)Ordered By: ED PROVIDER on 06-07-2024 Creatinine [Mass/Vol] 0.84 mg/dL Normal 0.70-1.20 [facility] Comment on above: Performed By: #### L 700.6800, L500.4050, L100.0100, L501.2450 ####[facility] [address] [place], [place], [phone] Serum globulin measurementOr dered By: ED PROVIDER on 06-07-2024 Globulin (S) [Mass/Vol] 3.2 g/dL Normal 2.2-4.2 [facility] Comment on above: Performed By: #### L 700.6800, L500.4050, L100.0100, L501.2450 ####[facility] [address] [place], [address] Serum glucose measurement (m ass/volume)Ordered By: ED PROVIDER on 06-07-2024 Glucose [Mass/Vol] 123 mg/dL High 70-99 [facility] Comment on above: Performed By: #### L 700.6800, L500.4050, L100.0100, L501.2450 ####[facility] [address] [place], [address] Serum human chorionic gonado tropin detection for pregnancyOrdered By: Isidro Moran on 06-07-2024 HCG ( test) [place]l [address] mIU/mL High <9 [facility] Comment on above: Gestational Age0.2-1 Week: 5-50 mIU/mL1-2 Weeks: 50-500 mIU/mL2-3 Weeks: 100-5000 mIU/mL3-4 Weeks: 500-10,000 mIU/mL4-5 Weeks:1000-50,000 mIU/mL5-6 Weeks: 10,000-100,000 mIU/mL6-8 Weeks: 15,000-200,000 mIU/mL2-3 Months:10,000-100,000 mIU/mL Serum or plasma alanine reyna otransferase (ALT) measurementOrdered By: ED PROVIDER on 06-07-2024 ALT [Catalytic activity/Vol] 11 U/L Normal <=34 [facility] Comment on above: Performed By: #### L 700.6800, L500.4050, L100.0100, L501.2450 ####[facility] [address] [place], [address] Serum or plasma albumin halle urement (mass/volume)Ordered By: ED PROVIDER on 06-07-2024 Albumin [Mass/Vol] 4.4 g/dL Normal 3.5-5.0 [facility] Comment on above: Performed By: #### L 700.6800, L500.4050, L100.0100, L501.2450 ####[facility] [address] [place], [address] Serum or plasma albumin/glob ulin mass ratioOrdered By: ED PROVIDER on 06-07-2024 Albumin/Globulin [Mass ratio] 1.4 {ratio} Normal 0.9-2.4 [facility] Comment on above: Performed By: #### L 700.6800, L500.4050, L100.0100, L501.2450 ####[facility] [address] [place], [address] Serum or plasma alkaline veronica sphatase measurementOrdered By: ED PROVIDER on 06-07-2024 ALP [Catalytic activity/Vol] 115 U/L High 35-104 [facility] Serum or plasma calcium halle urement (mass/volume)Ordered By: ED PROVIDER on 06-07-2024 Calcium [Mass/Vol] 9.9 mg/dL Normal 7.6-11.0 [facility] Comment on above: Performed By: #### L 700.6800, L500.4050, L100.0100, L501.2450 ####[facility] [address] [place], [address] Serum or plasma urea nitroge n measurement (mass/volume)Ordered By: ED PROVIDER on 06-07-2024 Urea nitrogen [Mass/Vol] 8 mg/dL Normal 4-19 [facility] Comment on above: Performed By: #### L 700.6800, L500.4050, L100.0100, L501.2450 ####[facility] [address] [place], [address] Sodium levelOrdered By: ED P GORDONDER on 06-07-2024 Sodium [Moles/Vol] 139 mmol/L Normal 133-145 [facility] Comment on above: Performed By: #### L 700.6800, L500.4050, L100.0100, L501.2450 ####[facility] [address] [place], [address] Squamous epithelial cells de tection in urine sediment by light microscopyOrdered By: Heriberto Frazier on 06-07-2024 Epithelial cells.squamous LM Ql (Urine sed) 0-5 SEEN /hpf 5-10 [facility] Total proteinOrdered By: ED PROVIDER on 06-07-2024 Protein [Mass/Vol] 7.7 g/dL 5.9-8.4 [facility] Transvaginal w/Preg USon Transvaginal w/Preg US [facility] Services [address] [place], [place] [address] Transvaginal w/Preg US MR#: [id number] Acct: [id number] Name: LEONOR CAMACHON Rep #: [id number] : 1990 F 33 From: Nile Mirza MD PCP: Dr. Miguel Gonzalez MD Status: REG ER Study: Transvaginal w/Preg US Date of Exam: 06/07/24 Exam# [id number] Ordering Dr: Isidro Moran ASSISTANT SALES DIRECTOR-Kirsten PROCEDURE: TRANSVAGINAL W/PREG US 06/07/2024 REASON FOR [...] and unremarkable. DIMENSIONS: Parameter Measurement / EGA [place] Rump Length: 5 mm/6 weeks 3 days Gestational Sac: 20 mm/6 weeks 6 days Yolk Sac: 3 mm/ ESTIMATED GESTATIONAL AGE: By Ultrasound: 6 weeks 5 days By LMP: 5 weeks 2 days ESTIMATED DATE OF DELIVERY: By Ultrasound: 01/26/2025 By LMP: 02/05/2025 US/Transvaginal w/Preg US IMPRESSION: UNREMARKABLE FIRST TRIMESTER ULTRASOUND. Reading Location: [facility] CC: ASSISTANT SALES DIRECTOR-Kirsten Moran; Dr. Miguel Gonzalez MD Merchandising Consultant: Signed Normal [facility] Urinalysis, Completeon 06-07 EPI,SQUAMOUS 0-5 SEEN Normal 5-10 [facility] Comment on above: Order Comment: COLLE CTOR TO SPECIFY Performed By: #### L 400.0001 ####[facility] [address] [place], [place], [id number] RBC 0-5 SEEN Normal 0-5 [facility] Comment on above: Order Comment: COLLE CTOR TO SPECIFY Performed By: #### L 400.0001 ####[facility] [address] [place], [address] WBC 5-10 SEEN Normal 0-5 [facility] Comment on above: Order Comment: ANABELLA CTOR TO SPECIFY Performed By: #### L 400.0001 ####[facility] [address] [place], [address] BACTERIA 1+ /hpf Normal None Seen [facility] Comment on above: Order Comment: ANABELLA CTOR TO SPECIFY Performed By: #### L 400.0001 ####[facility] [address] [place], [address] Mucus Ql (Urine sed) 0 SEEN Normal [facility] Comment on above: Order Comment: ANABELLA CTOR TO SPECIFY Performed By: #### L 400.0001 ####[facility] [address] [place], [place], [id number] Urine blood detectionOrdered By: Heriberto Frazier on 06-07-2024 Urine Occult Blood Negative Negative [facility] Urine clarityOrdered By: Josee Frazier on 06-07-2024 Clarity (U) Sl. Cloudy Clear [facility] Urine color determinationOrd ered By: Heriberto Frazier on 06-07-2024 Color (U) Yellow Yellow [facility] Urine glucose detectionOrder ed By: Heriberto Frazier on 06-07-2024 Glucose Ql (U) Normal mg/dl Normal [facility] Urine leukocyte esterase det ection by dipstickOrdered By: Heriberto Fraizer on 06-07-2024 Leukocyte esterase Test strip Ql (U) 25 /ul High Negative [facility] Urine pHOrdered By: Heriberto hugo on 06-07-2024 pH (U) 7.0 [pH] 5.0 - 8.0 [facility] Urine sediment bacteria coun t by microscopy (number/high power field)Ordered By: Heriberto Frazier on 06-07-2024 Bacteria LM.HPF (Urine sed) [#/Area] 1 /[HPF] None Seen [facility] Urine specific gravity measu rementOrdered By: Heriberto Frazier on 06-07-2024 Specific gravity (U) [Rel density] 1.010 1.002-1.030 [facility] Urine urobilinogen measureme ntOrdered By: Heriberto Freddie on 06-07-2024 Urobilinogen Ql (U) Normal mg/dl Normal [facility] Urobilinogen Ql (U)Ordered B y: Heriberto Bustamanteraheelgeovanny on 06-07-2024 Urine Urobilinogen Normal mg/dl Normal [facility] White blood cell (WBC) count Ordered By: ED PROVIDER on 06-07-2024 WBC (Bld) [#/Vol] 12.0 10*3/uL High 4.4-11.0 [facility] White blood cell countOrdere d By: Heriberto Frazier on 06-07-2024 Urine WBC 5-10 SEEN /hpf 0-5 [facility] White blood cell count 5-10 SEEN /hpf 0-5 [facility] hCG Titer Quant., Serumon HCG QUANT. 22258 mIU/mL High <9 non-preg [facility] Comment on above: Result Comment: Gest ational Age 0.2-1 Week: 5-50 mIU/mL 1-2 Weeks: 50-500 mIU/mL 2-3 Weeks: 100-5000 mIU/mL 3-4 Weeks: 500-10,000 mIU/mL 4-5 Weeks:1000-50,000 mIU/mL 5-6 Weeks: 10,000-100,000 mIU/mL 6-8 Weeks: 15,000-200,000 mIU/mL 2-3 Months:10,000-100,000 mIU/mL Performed By: #### L 700.8000 ####[facility] [address] [place], [address] Absolute lymphocyte countOrd ered By: John Ariza on 04-26-2024 Lymphocytes Auto (Unsp spec) [#/Vol] 2.63 10*3/uL 0.83-4.51 [facility] Absolute neutrophil countOrd ered By: John Ariza on 04-26-2024 Neutrophils (Bld) [#/Vol] 5.7 10*3/uL 2.0-7.7 [facility] Automated lymphocyte count a s percentage of total leukocytesOrdered By: John Ariaz on 04-26-2024 Lymphocytes/100 WBC Auto (Unsp spec) 29.6 % 19-41 [facility] Basophil percentageOrdered B y: John Ariza on 04-26-2024 Basophils/100 WBC (Bld) 0.3 % 0-1 [facility] CBC W/Diff, Automatedon Absolute Lymph 2.63 X10 3/uL Normal 0.83-4.51 [facility] Comment on above: Performed By: #### L 100.0100, L501.9520 #### [facility] [address] [place], [address] Absolute Neut 5.7 X10 3/uL Normal 2.0-7.7 [facility] Comment on above: Performed By: #### L 100.0100, L501.9520 #### [facility] [address] [place], [address] Basophils/100 WBC (Bld) 0.3 % Normal 0-1 [facility] Comment on above: Performed By: #### L 100.0100, L501.9520 #### [facility] [address] [place], [address] Eosinophils/100 WBC (Bld) 0.6 % Normal 0-5 [facility] Comment on above: Performed By: #### L 100.0100, L501.9520 #### [facility] [address] [place], [address] Erythrocyte distribution width (RBC) [Ratio] 13.2 % Normal 11.6-14.6 [facility] Comment on above: Performed By: #### L 100.0100, L501.9520 #### [facility] [address] [place], [address] Hematocrit (Bld) [Volume fraction] 39.7 % Normal 37-47 [facility] Comment on above: Performed By: #### L 100.0100, L501.9520 #### [facility] [address] [place], [address] Hemoglobin (Bld) [Mass/Vol] 12.7 g/dL Normal 12.0-15.0 [facility] Comment on above: Performed By: #### L 100.0100, L501.9520 #### [facility] [address] [place], [address] IG% 0.300 Normal 0.0-0.9 [facility] Comment on above: Result Comment: IG% - Immature Granulocytes (promyelocytes, myelocytes and metamyelocytes) > 1% indicates that a LEFT SHIFT is Present. Performed By: #### L 100.0100, L501.9520 #### [facility] [address] [place], [address] Lymphocytes/100 WBC (Bld) 29.6 % Normal 19-41 [facility] Comment on above: Performed By: #### L 100.0100, L501.9520 #### [facility] [address] [place], [address] MCH (RBC) [Entitic mass] 27.7 pg Normal 27.0-32.0 [facility] Comment on above: Performed By: #### L 100.0100, L501.9520 #### [facility] [address] [place], [address] MCHC (RBC) [Mass/Vol] 32.0 g/dL Normal 32-36 [facility] Comment on above: Performed By: #### L 100.0100, L501.9520 #### [facility] [address] [place], [address] MCV (RBC) [Entitic vol] 86.5 fL Normal 81-99 [facility] Comment on above: Performed By: #### L 100.0100, L501.9520 #### [facility] [address] [place], [address] Monocytes/100 WBC (Bld) 5.7 % Normal 0-10 [facility] Comment on above: Performed By: #### L 100.0100, L501.20 #### [facility] [address] [place], [address] Neutrophils/100 WBC (Bld) 63.5 % Normal 47-70 [facility] Comment on above: Performed By: #### L 100.0100, L501.9520 #### [facility] [address] [place], [address] Nucleated RBC (Bld) [#/Vol] 0 10*3/uL Normal 0-5 [facility] Comment on above: Performed By: #### L 100.0100, L501.9520 #### [facility] [address] [place], [address] Platelet mean volume (Bld) [Entitic vol] 12.4 fL High 6.2-12.0 [facility] Comment on above: Performed By: #### L 100.0100, L501.20 #### [facility] [address] [place], [address] Platelets (Bld) [#/Vol] 231 10*3/uL Normal 150-450 [facility] Comment on above: Performed By: #### L 100.0100, L501.20 #### [facility] [address] [place], [address] RBC (Bld) [#/Vol] 4.59 10*6/uL Normal 4.2-5.4 [facility] Comment on above: Performed By: #### L 100.0100, L501.9520 #### [facility] [address] [place], [address] RDW SD 41.4 fl Normal 35.1-43.9 [facility] Comment on above: Performed By: #### L 100.0100, L501.9520 #### [facility] [address] [place], [address] WBC (Bld) [#/Vol] 8.9 10*3/uL Normal 4.4-11.0 [facility] Comment on above: Performed By: #### L 100.0100, L501.9520 #### [facility] [address] [place], [address] Eosinophil percentageOrdered By: Johnbeth Ariza on 04-26-2024 Eosinophils/100 WBC (Bld) 0.6 % 0-5 [facility] Erythrocyte distribution wid th ratioOrdered By: John Ariza on 04-26-2024 Erythrocyte distribution width (RBC) [Ratio] 13.2 % 11.6-14.6 [facility] Erythrocyte distribution wid th standard deviationOrdered By: Johnbeth Ariza on 04-26-2024 Erythrocyte distribution width (RBC) [Entitic vol] 41.4 fL 35.1-43.9 [facility] Erythrocyte distribution width (RBC) [Ratio] 41.4 fl 35.1-43.9 [facility] Hematocrit Auto (Bld) [Volum e fraction]Ordered By: John Ariza on 04-26-2024 Hematocrit (Bld) [Volume fraction] 39.7 % 37-47 [facility] Hemoglobin measurementOrdere d By: John Ariza on 04-26-2024 Hemoglobin (Bld) [Mass/Vol] 12.7 g/dL 12.0-15.0 [facility] Immature granulocytes/100 WB C Auto (Bld)Ordered By: Johnbeth Ariza on 04-26-2024 Immature granulocytes/100 WBC (Bld) 0.300 % 0.0-0.9 [facility] Comment on above: IG% - Immature Granu locytes (promyelocytes, myelocytes and metamyelocytes) > 1% indicates that a LEFT SHIFT is Present. Lymphocytes Auto (Unsp spec) [#/Vol]Ordered By: John Ariza on 03-04-2025 Lymphocytes (Bld) [#/Vol] 2.63 10*3/uL 0.83-4.51 [facility] Lymphocytes/100 WBC Auto (Un sp spec)Ordered By: John Ariza on 04-26-2024 Lymphocytes/100 WBC (Bld) 29.6 % 19-41 [facility] MCV (mean corpuscular volume ) determinationOrdered By: John Ariza on 04-26-2024 MCV (RBC) [Entitic vol] 86.5 fL 81-99 [facility] Mean corpuscular hemoglobin (MCH) determinationOrdered By: John Ariza on 04-26-2024 MCH (RBC) [Entitic mass] 27.7 pg 27.0-32.0 [facility] Mean corpuscular hemoglobin concentration (MCHC) determinationOrdered By: Johnbeth Ariza on 04-26-2024 MCHC (RBC) [Mass/Vol] 32.0 g/dL 32-36 [facility] Mean platelet volume determi nationOrdered By: John Ariza on 04-26-2024 Platelet mean volume (Bld) [Entitic vol] 12.4 fL High 6.2-12.0 [facility] Monocyte percentageOrdered B y: John Ariza on 04-26-2024 Monocytes/100 WBC (Bld) 5.7 % 0-10 [facility] Neutrophil percentageOrdered By: John Ariza on 04-26-2024 Neutrophils/100 WBC (Bld) 63.5 % 47-70 [facility] Nucleated red blood cell per centageOrdered By: John Ariza on 04-26-2024 Nucleated RBC/100 WBC (Bld) [Ratio] 0 % 0-5 [facility] Platelet countOrdered By: Brian Ariza on 04-26-2024 Platelets (Bld) [#/Vol] 231 10*3/uL 150-450 [facility] RBC Auto (Bld) [#/Vol]Ordere d By: John Ariza on 04-26-2024 RBC (Bld) [#/Vol] 4.59 10*6/uL 4.2-5.4 [facility] TSH DL <= 0.005 mIU/L QnOrde red By: John Ariza on 04-26-2024 Thyroid Stimulating Hormone (TSH) 1.850 uIU/mL 0.300-4.200 [facility] TSH Qn 1.850 uIU/mL 0.300-4.200 [facility] Thyroid Stim Hormone (TSH)on 04-26-2024 TSH 1.850 uIU/mL Normal 0.300-4.200 [facility] Comment on above: Performed By: #### L 100.0100, L501.9520 #### [facility] [address] [place], [address] White blood cell (WBC) count Ordered By: John Ariza on 04-26-2024 WBC (Bld) [#/Vol] 8.9 10*3/uL 4.4-11.0 [facility] LIPID PANEL, STANDARDon Cholesterol [Mass/Vol] 254 mg/dL High <200 [facility] Comment on above: Order Comment: 0 FASTING:YES FASTING: YES Performed By: #### 7 600 #### [facility] [address], [address] [place], [place] [id number] [employer] Supervisor: Kuldeep Perez MD Cholesterol in HDL [Mass/Vol] 67 mg/dL Normal > OR = 50 [facility] Comment on above: Order Comment: 0 FASTING:YES FASTING: YES Performed By: #### 7 600 #### [facility] [address], [address] [place], [place] [id number] [employer] Supervisor: Kuldeep Perez MD Cholesterol in LDL [Mass/Vol] [...] LDL-C. Shun BURNETT et al. RENÉ. 2013;310(19): 8712-3908 (http://education.[facility].[employer]/faq/TMP451) Performed By: #### 7 600 #### [facility] [address], [address] [place] [address] [employer] Supervisor: Kuldeep Perez MD Cholesterol.total/Choles terol in HDL [Mass ratio] 3.8 {ratio} Normal <5.0 [facility] Comment on above: Order Comment: 0 FASTING:YES FASTING: YES Performed By: #### 7 600 #### [facility] [address], [address] [place] [address] [employer] Supervisor: Kuldeep Perez MD NON HDL CHOLESTEROL 187 mg/dL (calc) High <130 [facility] Comment on above: Order Comment: 0 FASTING:YES FASTING: YES Result Comment: For patients with diabetes plus 1 major ASCVD risk factor, treating to a non-HDL-C goal of <100 mg/dL (LDL-C of <70 mg/dL) is considered a therapeutic option. Performed By: #### 7 600 #### [facility] [address], [address] [place] [address] [employer] Supervisor: Kuldeep Perez MD Triglyceride [Mass/Vol] 76 mg/dL Normal <150 [facility] Comment on above: Order Comment: 0 FASTING:YES FASTING: YES Performed By: #### 7 600 #### [facility] [address], [address] [place] [address] [employer] Supervisor: Kuldeep Perez MD Absolute lymphocyte countOrd ered By: Valorie Miller on 03-27-2023 Lymphocytes Auto (Unsp spec) [#/Vol] 2.34 10*3/uL 0.83-4.51 [facility] Automated lymphocyte count a s percentage of total leukocytesOrdered By: Valorie Miller on 03-27-2023 Lymphocytes/100 WBC Auto (Unsp spec) 22.2 % 19-41 [facility] Basophil percentageOrdered B y: Valorie Miller on 03-27-2023 Basophils/100 WBC (Bld) 0.4 % 0-1 [facility] Eosinophils/100 WBC (Bld) 0.4 % 0-5 [facility] Hemoglobin (Bld) [Mass/Vol] 11.9 g/dL 12.0-15.0 [facility] Monocytes/100 WBC (Bld) 5.0 % 0-10 [facility] Neutrophils (Bld) [#/Vol] 7.6 10*3/uL 2.0-7.7 [facility] Neutrophils/100 WBC (Bld) 71.7 % 47-70 [facility] WBC (Bld) [#/Vol] 10.6 10*3/uL 4.4-11.0 [facility] Determination of erythrocyte mean corpuscular volume (MCV)Ordered By: Valorie Miller on 03-27-2023 MCV (RBC) [Entitic vol] 88.2 fL 81-99 [facility] Erythrocyte distribution wid th ratioOrdered By: Valorie Miller on 03-27-2023 Erythrocyte distribution width (RBC) [Ratio] 12.5 % 11.6-14.6 [facility] Erythrocyte distribution wid th standard deviationOrdered By: Valorie Miller on 03-27-2023 Erythrocyte distribution width (RBC) [Entitic vol] 40.4 fL 35.1-43.9 [facility] HIV 1 and HIV-2 antibody ass ay with HIV-1 p24 antigen detectionOrdered By: Valorie Miller on 03-27-2023 HIV 1+2 Ab+HIV1 p24 Ag IA Ql Non-Reactive Nonreactive [facility] Hematocrit Auto (Bld) [Volum e fraction]Ordered By: Valorie Miller on 03-27-2023 Hematocrit (Bld) [Volume fraction] 36.5 % 37-47 [facility] Immature granulocytes/100 WB C Auto (Bld)Ordered By: Valorie Miller on 03-27-2023 Immature granulocytes/100 WBC (Bld) 0.300 % 0.0-0.9 [facility] Comment on above: IG% - Immature Granu locytes (promyelocytes, myelocytes and metamyelocytes) > 1% indicates that a LEFT SHIFT is Present. Laboratory - Chemistry and C hemistry - challengeon 03-27-2023 Glucose Ql (U) Negative [facility] Laboratory - Hematology and Cell countsOrdered By: Valorie Miller on 03-27-2023 MCH (RBC) [Entitic mass] 28.7 pg 27.0-32.0 [facility] MCHC (RBC) [Mass/Vol] 32.6 g/dL 32-36 [facility] Nucleated RBC/100 WBC (Bld) [Ratio] 0 % 0-5 [facility] Platelets (Bld) [#/Vol] 165 10*3/uL 150-450 [facility] Laboratory - Urinalysison Protein Ql (U) Negative [facility] No Panel InformationOrdered By: Valorie Miller on 03-27-2023 Hepatitis B Surface Antigen Non-Reactive Nonreactive [facility] Hepatitis C Antibody Non-Reactive Nonreactive [facility] Comment on above: Non Reactive: < 0.8 Equivocal: >/= 0.8 to < 1.0 Reactive: >/= 1.0The CDC recommends that a reactive/equivocal HCV antibody result be followed up by the HCV Nucleic Acid Amplificationtest (717995) Rubella IgG Antibody Reactive Nonreactive [facility] Comment on above: Antibody Results Int erpretation of Immune Status Non Reactive Presumed Non-Immune Equivocal Equivocal Reactive Presumed Immune Platelet mean volume Demond-Ec ker (Bld) [Entitic vol]Ordered By: Valorie Miller on 03-27-2023 Platelet mean volume (Bld) [Entitic vol] 12.6 fL 6.2-12.0 [facility] RBC Auto (Bld) [#/Vol]Ordere d By: Valorie Miller on 03-27-2023 RBC (Bld) [#/Vol] 4.14 10*6/uL 4.2-5.4 [facility] Serum Treponema species anti body detectionOrdered By: Valorie Miller on 03-27-2023 Treponema sp Ab Ql (S) Non-Reactive [facility] Chlamydia trachomatis rRNA d etection by probe and target amplification methodOrdered By: Valorie Miller on 03-10-2023 C. trachomatis rRNA JOVITA+probe Ql (Unsp spec) Negative Negative [facility] Culture, urineOrdered By: Fareed Miller on 03-10-2023 Bacteria identified Cx Nom (U) Culture exhibits no growth. [facility] Laboratory - Microbiology an d Antimicrobial susceptibilityOrdered By: Valorie Miller on 03-10-2023 N. gonorrhoeae DNA JOVITA+probe Ql (Unsp spec) Negative Negative [facility] Comment on above: Performed at: [address] [place] [id number] Director: Noelle Sorto MD, Phone: [phone] Serum or plasma choriogonado tropin detectionOrdered By: Indiana Lazo on 02-13-2023 HCG ( [place]) [place]l [address] mIU/mL <4 [facility] Comment on above: hCG levels with Gest ational AgeGestational Age hCG mIU/mL (IU/L)0.2 - 1 week 5 - 501-2 weeks 50 - 5002-3 weeks 100 - 70633-1 weeks 500 - 658664-9 weeks 1000 - 109656-6 weeks 29350 - 100,0006-8 weeks 68430 - 200,0002-3 months 36575 - 100,000 Serum or plasma choriogonado tropin detectionOrdered By: Cassandra Lockhart on 02-11-2023 HCG ( test) Ql 7773 mIU/mL <4 [facility] Comment on above: hCG levels with Gest ational AgeGestational Age hCG mIU/mL (IU/L)0.2 - 1 week 5 - 501-2 weeks 50 - 5002-3 weeks 100 - 07199-8 weeks 500 - 123502-6 weeks 1000 - 740470-4 weeks 93385 - 100,0006-8 weeks 42035 - 200,0002-3 months 01218 - 100,000 B-HCG SerPl-aCncon 3 HCG.beta subunit Qn m[IU]/mL Normal <5.0 [facility] Comment on above: Order Comment: Speci men Type: BLOOD SPECIMENOrdering Facility: [facility] Address: [address] [place] [id number] Result Comment: Sofía ballard Performed By: #### 2 4323-8, 3040-3, 26217-7, 65774-8 ####[facility] LABCLIA [id number] [facility] [place] [address] [facility] CBC panel Auto (Bld)on 08-20 Erythrocyte distribution width (RBC) [Ratio] 12.6 % Normal 11.5-15.0 [facility] Comment on above: Order Comment: Speci men Type: BLOOD SPECIMEN Ordering Facility: [facility] Address: [address] [place] [address] Performed By: #### 5 8410-2 #### [facility] [place] [facility] CLIA [id number] [address] [place], [place] [address] [place] [address] [place] Hematocrit (Bld) [Volume fraction] 40.0 % Normal 36.0-46.0 [facility] Comment on above: Order Comment: Speci men Type: BLOOD SPECIMEN [facility]ing Facility: [facility] Address: [address] [place] [address] Performed By: #### 5 8410-2 #### [facility] CLIA [id number] [address] [place] [address] [place] Hemoglobin (Bld) [Mass/Vol] 13.2 g/dL Normal 11.5-15.5 [facility] Comment on above: Order Comment: Speci men Type: BLOOD SPECIMEN Ordering Facility: [facility] Address: [address] [place] [address] Performed By: #### 5 8410-2 #### [facility] CLIA [id number] [address] [place] MCH (RBC) [Entitic mass] 29.4 pg Normal 26.0-34.0 [facility] Comment on above: Order Comment: Speci men Type: BLOOD SPECIMEN [facility]ing Facility: [facility] Address: [address] [place] [place] [address] Performed By: #### 5 8410-2 #### [facility] [place] CLIA [id number] [address] [place] [address] [place] MCHC (RBC) [Mass/Vol] 33.0 g/dL Normal 30.5-36.0 [facility] Comment on above: Order Comment: Speci men Type: BLOOD SPECIMEN Ordering Facility: [facility] Address: [address] [address] Performed By: #### 5 8410-2 #### [facility] CLIA [id number] [address] [place] [address] [place] MCV (RBC) [Entitic vol] 89.1 fL Normal 80.0-100.0 [facility] Comment on above: Order Comment: Speci men Type: BLOOD SPECIMEN [facility]ing Facility: [facility] Address: [address] [place] [place] [address] Performed By: #### 5 8410-2 #### [facility] CLIA [id number] [address] [place] [address] [place] Platelet mean volume (Bld) [Entitic vol] 12.5 fL Normal 9.0-12.7 [facility] Comment on above: Order Comment: Speci men Type: BLOOD SPECIMEN [facility]ing Facility: [facility] Address: [address] [place] [place] [address] Performed By: #### 5 8410-2 #### [facility] CLIA [id number] [address] [place] [address] [place] Platelets (Bld) [#/Vol] 187 10*3/uL Normal 150-400 [facility] Comment on above: Order Comment: Speci men Type: BLOOD SPECIMEN [facility] Address: [address] [place] [place] [address] Performed By: #### 5 8410-2 #### [facility] [place] [facility] CLIA [id number] [address] [place] [address] [place] RBC (Bld) [#/Vol] 4.49 10*6/uL Normal 3.90-5.20 [facility] Comment on above: Order Comment: Speci men Type: BLOOD SPECIMEN [facility]ing Facility: [facility] Address: [address] [place] [place] [address] Performed By: #### 5 8410-2 #### [facility] CLIA [id number] [address] [place] [address] [place] WBC (Bld) [#/Vol] 10.62 10*3/uL Normal 3.70-11.00 [facility] Comment on above: Order Comment: Speci men Type: BLOOD SPECIMEN [facility]ing Facility: [facility] Address: [address] [place] [address] Performed By: #### 5 8410-2 #### [facility] CLIA [id number] [address] [place] [address] [facility] Comprehensive metabolic 2000 panelon 08-20-2022 Albumin [Mass/Vol] 4.5 g/dL Normal 3.9-4.9 [facility] Comment on above: Order Comment: Speci men Type: BLOOD SPECIMENOrdering Facility: [facility] Address: [address] [place] [address] Performed By: #### 2 4323-8, 3040-3, 92652-9, 14870-0 ####[facility] LABCLIA [id number] [place] [address] [facility] ALP [Catalytic activity/Vol] 97 U/L Normal 34-123 [facility] Comment on above: Order Comment: Speci men Type: BLOOD SPECIMENOrdering Facility: [facility] Address: [address] [place] [address] Performed By: #### 2 4323-8, 3040-3, 60810-5, 31719-0 ####[facility] LABCLIA [id number] [place] [address] [facility] ALT With P-5'-P [Catalytic activity/Vol] 11 U/L Normal 7-38 [facility] Comment on above: Order Comment: Speci men Type: BLOOD SPECIMENOrdering Facility: [facility] Address: [address] [place] [address] Performed By: #### 2 4323-8, 3040-3, 71695-8, 81544-1 ####[facility] LABCLIA [id number] [place] [address] [place] Anion gap [Moles/Vol] 13 mmol/L Normal 9-18 [facility] Comment on above: Order Comment: Speci men Type: BLOOD SPECIMENOrdering Facility: [facility] Address: [address] [place] [address] Performed By: #### 2 4323-8, 3040-3, 40520-6, 38101-7 ####[facility] [place] LABCLIA [id number] [place] [address] [place] AST With P-5'-P [Catalytic activity/Vol] 13 U/L Normal 13-[address] [facility] Comment on above: Order Comment: Speci men Type: BLOOD SPECIMENOrdering Facility: [facility] Address: [address] [place] [address] Performed By: #### 2 4323-8, 3040-3, 97231-9, 78683-5 ####[facility] LABCLIA [id number] [place] [address] [place] Bilirubin [Mass/Vol] mg/dL Low 0.2-1.3 [facility] Comment on above: Order Comment: Speci men Type: BLOOD SPECIMENOrdering Facility: [facility] Address: [address] [place] [address] Performed By: #### 2 4323-8, 3040-3, 34043-9, 88457-9 ####[facility] LABCLIA [id number] [place] [address] [place] Calcium [Mass/Vol] 9.3 mg/dL Normal 8.5-10.2 [facility] Comment on above: Order Comment: Speci men Type: BLOOD SPECIMENOrdering Facility: [facility] Address: [address] [place] [place] [address] Performed By: #### 2 4323-8, 3040-3, 52980-6, 96797-6 ####[facility] [place] LABCLIA [id number] [place] [address] [place] Chloride [Moles/Vol] 102 mmol/L Normal 97-105 [facility] Comment on above: Order Comment: Speci men Type: BLOOD SPECIMENOrdering Facility: [facility] Address: [address] [place] [address] Performed By: #### 2 4323-8, 3040-3, 88006-0, 33216-8 ####[facility] LABCLIA [id number] [place] [address] [place] CO2 [Moles/Vol] 22 mmol/L Normal 22-30 [facility] Comment on above: Order Comment: Speci men Type: BLOOD SPECIMENOrdering Facility: [facility] Address: [address] [place] [address] Performed By: #### 2 4323-8, 3040-3, 11767-8, 99741-6 ####[facility] LABCLIA [id number] [place] [address] [place] Creatinine [Mass/Vol] 0.76 mg/dL Normal 0.58-0.96 [facility] Comment on above: Order Comment: Speci men Type: BLOOD SPECIMENOrdering Facility: [facility] Address: [address] [place] [address] Performed By: #### 2 4323-8, 3040-3, 85660-6, 24697-0 ####[facility] LABCLIA [id number] [place] [address] [place] [facility] ESTIMATED GLOMERULAR FILTRATION RATE 108 mL/min/1.73m??? Normal >=60 [facility] Comment on above: Order Comment: Speci men Type: BLOOD SPECIMENOrdering Facility: [facility] Address: [address] [place] [address] Result Comment: Ilana mated Glomerular Filtration Rate [...] GFR. Performed By: #### 2 4323-8, 3040-3, 30109-8, 43800-7 ####[facility] LABCLIA [id number] [place] [address] [place] Glucose [Mass/Vol] 94 mg/dL Normal 74-99 [facility] Comment on above: Order Comment: Marily mary Type: BLOOD SPECIMENOrdering Facility: [facility] Address: [address] [place], [place] [id number] Result Comment: The [place] [employer] Association (ADA) provides guidance for cutoff [...] Standards of Medical Care in Diabetes 2016, [place] [employer]. Diabetes Care. 2016.39(Suppl 1). Performed By: #### 2 4323-8, 3040-3, 42475-2, ####[facility] LABCLIA [id number] [place] [address] [place] Potassium [Moles/Vol] 3.7 mmol/L Normal 3.7-5.1 [facility] Comment on above: Order Comment: Marily mary Type: BLOOD SPECIMENOrdering Facility: [facility] Address: [address] [place] [address] Performed By: #### 2 4323-8, 3040-3, 91661-7, 80732-3 ####[facility] LABCLIA [id number] [place] [address] [place] Protein [Mass/Vol] 7.5 g/dL Normal 6.3-8.0 [facility] Comment on above: Order Comment: Speci men Type: BLOOD SPECIMENOrdering Facility: [facility] Address: [address] [place], [place] [address] Performed By: #### 2 4323-8, 3040-3, 94796-0, 29040-7 ####[facility] LABCLIA [id number] [place] [address] [facility] Sodium [Moles/Vol] 137 mmol/L Normal 136-144 [facility] Comment on above: Order Comment: Speci men Type: BLOOD SPECIMENOrdering Facility: [facility] Address: [address] [place] [address] Performed By: #### 2 4323-8, 3040-3, 36289-6, 10988-0 ####[facility] LABCLIA [id number] [place] [address] [facility] Urea nitrogen [Mass/Vol] 14 mg/dL Normal 7-21 [facility] Comment on above: Order Comment: Speci men Type: BLOOD SPECIMENOrdering Facility: [facility] Address: [address] [place] [address] Performed By: #### 2 4323-8, 3040-3, 04024-4, 04653-3 ####[facility] LABCLIA [id number] [place] [id number] [facility] D dimer FEU PPP-mCncon 08-20 Fibrin D-dimer FEU (PPP) [Mass/Vol] 230 ng/mL FEU Normal <500 [facility] Comment on above: Order Comment: Speci men Type: BLOOD SPECIMEN [facility] Address: [address] [place] [place] [address] Performed By: #### 4 8065-7 #### [facility] [place] [facility] CLIA [id number] [address] [place] [address] [facility] ECG COMPLETEon 08-20-2022 ECG COMPLETE Ventricular Rate : 73 BPM Atrial Rate : 73 BPM P-R Interval : 142 ms QRS Duration : 92 ms Q-T Interval : 376 ms QTC Calculation(Bazett) : 414 ms Calculated P [employer] : 61 degrees Calculated R [employer] : 23 degrees Calculated T [employer] : 31 degrees NORMAL SINUS RHYTHM WITH SINUS ARRHYTHMIA RSR' OR QR PATTERN IN V1 SUGGESTS RIGHT VENTRICULAR CONDUCTION DELAY BORDERLINE ECG NO PREVIOUS ECGS AVAILABLE Confirmed by MD DILLARD VINAYAK ([id number]) on 08/21/2022 11:12:42 AM NAME : LEONOR CAMACHO PID : [id number] : 1990 Gender : Female Race : ORD : [id number] Procedure Date : Aug 20 2022 00:15:20 Edit Date : Aug 21 2022 11:12:42 Diagnosis: NORMAL SINUS RHYTHM WITH SINUS ARRHYTHMIA RSR' OR QR PATTERN IN V1 SUGGESTS RIGHT VENTRICULAR CONDUCTION DELAY BORDERLINE ECG NO PREVIOUS ECGS AVAILABLE Confirmed by MD DILLARD VINAYAK ([id number]) on 08/21/2022 11:12:42 AM Test Reason : cp Location : 150 : [place] Overread By : MD DILLARD VINAYAK Edited By : MD DILLARD VINAYAK Referred By : Marixa Acquired by : EILEEN OVERTON [facility] ED NOTEon 08-20-2022 ED NOTE HNO ID: [id number] Author: Hi Stanley RN Service: Emergency Medicine [...] with a steady gait at this time. [facility] ED NOTE HNO ID: [id number] Author: Hi Stanley RN Service: Emergency Medicine Author Type: Registered Nurse Type: ED Notes Filed: 08/20/2022 3:50 AM Note Text: Physician at bedside. 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 [facility] ED NOTE HNO ID: [id number] Author: Hi Stanley RN Service: Emergency Medicine Author Type: Registered Nurse Type: ED Notes Filed: 08/20/2022 12:12 AM Note Text: RT at bedside for EKG. Normal [facility] ED PROV NOTEon 08-20-2022 ED PROV NOTE HNO ID: [id number] Author: Leatha Calvin MD Service: Emergency Medicine [...] PE, D (more content not included)... Normal [facility] HIGH SENSITIVITY TROPONIN T (INITIAL)on 08-20-2022 HIGH SENSITIVITY LIZZETH <6 Normal <12 [facility] Comment on above: Order Comment: Marily hernandez Type: BLOOD SPECIMEN [facility] Address: [address] [address] Result Comment: When assessing risk for acute [...] 30 day MACE. Performed By: #### L [id number] #### [facility] CLIA [id number] [address] [place] [address] [place] HIGH SENSITIVITY TROPONIN T (SECOND)on 08-20-2022 HIGH SENSITIVITY LIZZETH <6 Normal <12 [facility] Comment on above: Order Comment: Marily hernandez Type: BLOOD SPECIMEN [facility] Address: [address] [place] [address] Result Comment: When assessing risk for acute [...] 30 day MACE. Performed By: #### L [id number] #### [facility] [place] [facility] CLIA [id number] [address] [place] [address] [place] Lipase SerPl-cCncon 06-28-20 23 Lipase [Catalytic activity/Vol] 40 U/L Normal 16-61 [facility] Comment on above: Order Comment: Speci men Type: BLOOD SPECIMENOrdering Facility: [facility] Address: [address] [place] [address] Performed By: #### 2 4323-8, 3040-3, 57831-2, 62351-7 ####[facility] LABCLIA [id number] [place] [address] [facility] NT-proBNP SerPl-mCncon 08-20 Natriuretic peptide.B prohormone N-Terminal [Mass/Vol] <36 Normal <125 [facility] Comment on above: Order Comment: Speci mary Type: BLOOD SPECIMENOrdering Facility: [facility] Address: [address] [place] [id number] Performed By: #### 2 4323-8, 3040-3, 10038-8, 08574-3 ####[facility] LABCLIA [id number] [place] [address] [facility] XR CHEST 1V FRONTALon 2022 XR CHEST [...] radiographic evidence of an acute cardiopulmonary process. Merchandising Consultant: PSCB Transcribe Date/Time: Aug 20 2022 2:34A Dictated by : VERNON SOLOMON MD This examination was interpreted and the report reviewed and electronically signed by: VERNON SOLOMON MD on Aug 20 2022 2:35AM EST [id number] CN Normal [facility] Absolute lymphocyte counton 04-09-2021 Lymphocytes Auto (Unsp spec) [#/Vol] 2.28 10*3/uL 0.83-4.51 [facility] Work Phone: Basophil percentageon 2021 Basophils/100 WBC (Bld) 0.2 % 0-1 [facility] Work Phone: Eosinophils/100 WBC (Bld) 0.1 % 0-5 [facility] Work Phone: [phone] Neutrophils (Bld) [#/Vol] 13.8 10*3/uL 2.0-7.7 [facility] Work Phone: Neutrophils/100 WBC (Bld) 81.1 % 47-70 [facility] Work Phone: WBC (Bld) [#/Vol] 17.0 10*3/uL 4.4-11.0 [facility] Work Phone: Blood erythrocytes count (nu mber/volume)on 04-09-2021 RBC (Bld) [#/Vol] 4.34 10*6/uL 4.2-5.4 [facility] Work Phone: Blood hemoglobin measurement (mass/volume)on 04-09-2021 Hemoglobin (Bld) [Mass/Vol] 12.7 g/dL 12.0-15.0 [facility] Work Phone: Blood lymphocytes/100 leukoc yteson 04-09-2021 Lymphocytes/100 WBC (Bld) 13.4 % 19-41 [facility] Work Phone: Blood monocytes/100 leukocyt eson 04-09-2021 Monocytes/100 WBC (Bld) 4.5 % 0-10 [facility] Work Phone: Blood platelet mean volumeon 04-09-2021 Platelet mean volume (Bld) [Entitic vol] 12.8 fL 6.2-12.0 [facility] Work Phone: Determination of erythrocyte mean corpuscular volume (MCV)on 04-09-2021 MCV (RBC) [Entitic vol] 87.6 fL 81-99 [facility] Work Phone: Hematocrit Auto (Bld) [Volum e fraction]on 04-09-2021 Hematocrit (Bld) [Volume fraction] 38.0 % 37-47 [facility] Work Phone: Laboratory - Hematology and Cell countson 04-09-2021 Erythrocyte distribution width (RBC) [Entitic vol] 42.4 fL 35.1-43.9 [facility] Work Phone: Erythrocyte distribution width (RBC) [Ratio] 13.3 % 11.6-14.6 [facility] Work Phone: Immature granulocytes/100 WBC (Bld) 0.700 % 0.0-0.9 [facility] Work Phone: Comment on above: IG% - Immature Granu locytes (promyelocytes, myelocytes and metamyelocytes) > 1% indicates that a LEFT SHIFT is Present. MCH (RBC) [Entitic mass] 29.3 pg 27.0-32.0 [facility] Work Phone: Nucleated RBC/100 WBC (Bld) [Ratio] 0 % 0-5 [facility] Work Phone: MCHC Auto (RBC) [Mass/Vol]on 04-09-2021 MCHC (RBC) [Mass/Vol] 33.4 g/dL 32-36 [facility] Work Phone: No Panel Informationon 04-09 SARS-CoV-2 Antigen (Rapid) [facility] Work Phone: Platelets bldon 04-09-2021 Platelets (Bld) [#/Vol] 140 10*3/uL 150-450 [facility] Work Phone: Laboratory - Chemistry and C hemistry - challengeon 04-08-2021 Glucose Ql (U) Negative [facility] Work Phone: Laboratory - Urinalysison Protein Ql (U) Negative [facility] Work Phone: Laboratory - Chemistry and C hemistry - challengeon 03-29-2021 Glucose Ql (U) Negative [facility] Work Phone: Laboratory - Urinalysison Protein Ql (U) Negative [facility] Work Phone: Laboratory - Chemistry and C hemistry - challengeon 03-22-2021 Glucose Ql (U) Negative [facility] Work Phone: Laboratory - Urinalysison Protein Ql (U) Negative [facility] Work Phone: No Panel Informationon 03-22 Group B Streptococcus Culture Group B Beta Streptococcus is not isolated. [facility] Work Phone: Laboratory - Chemistry and C hemistry - challengeon 03-14-2021 Glucose Ql (U) Negative [facility] Work Phone: Laboratory - Urinalysison Protein Ql (U) Negative [facility] Work Phone: Absolute lymphocyte counton 02-28-2021 Lymphocytes Auto (Unsp spec) [#/Vol] 1.96 10*3/uL 0.83-4.51 [facility] Work Phone: Basophil percentageon 2021 Basophils/100 WBC (Bld) 0.3 % 0-1 [facility] Work Phone: Eosinophils/100 WBC (Bld) 0.5 % 0-5 [facility] Work Phone: Neutrophils (Bld) [#/Vol] 8.2 10*3/uL 2.0-7.7 [facility] Work Phone: Neutrophils/100 WBC (Bld) 74.3 % 47-70 [facility] Work Phone: WBC (Bld) [#/Vol] 11.1 10*3/uL 4.4-11.0 [facility] Work Phone: Blood erythrocytes count (nu mber/volume)on 02-28-2021 RBC (Bld) [#/Vol] 3.99 10*6/uL 4.2-5.4 [facility] Work Phone: Blood hemoglobin measurement (mass/volume)on 02-28-2021 Hemoglobin (Bld) [Mass/Vol] 11.5 g/dL 12.0-15.0 [facility] Work Phone: Blood lymphocytes/100 leukoc yteson 02-28-2021 Lymphocytes/100 WBC (Bld) 17.7 % 19-41 [facility] Work Phone: Blood monocytes/100 leukocyt eson 02-28-2021 Monocytes/100 WBC (Bld) 6.2 % 0-10 [facility] Work Phone: Blood platelet adequacy dete ction by light microscopyon 02-28-2021 Platelets LM Ql (Bld) ADEQUATE ADEQ [facility] Work Phone: Blood platelet mean volumeon 02-28-2021 Platelet mean volume (Bld) [Entitic vol] 12.3 fL 6.2-12.0 [facility] Work Phone: Blood platelet morphology de termination (nominal result)on 02-28-2021 Platelet morphology finding Nom (Bld) LARGE [facility] Work Phone: Determination of erythrocyte mean corpuscular volume (MCV)on 02-28-2021 MCV (RBC) [Entitic vol] 86.5 fL 81-99 [facility] Work Phone: Hematocrit Auto (Bld) [Volum e fraction]on 02-28-2021 Hematocrit (Bld) [Volume fraction] 34.5 % 37-47 [facility] Work Phone: Laboratory - Hematology and Cell countson 02-28-2021 Anisocytosis Ql (Bld) RARE [facility] Work Phone: Erythrocyte distribution width (RBC) [Entitic vol] 39.6 fL 35.1-43.9 [facility] Work Phone: Erythrocyte distribution width (RBC) [Ratio] 12.7 % 11.6-14.6 [facility] Work Phone: Immature granulocytes/100 WBC (Bld) 1.000 % 0.0-0.9 [facility] Work Phone: [phone] Comment on above: IG% - Immature Granu locytes (promyelocytes, myelocytes and metamyelocytes) > 1% indicates that a LEFT SHIFT is Present. MCH (RBC) [Entitic mass] 28.8 pg 27.0-32.0 [facility] Work Phone: Nucleated RBC/100 WBC (Bld) [Ratio] 0 % 0-5 [facility] Work Phone: MCHC Auto (RBC) [Mass/Vol]on 02-28-2021 MCHC (RBC) [Mass/Vol] 33.3 g/dL 32-36 [facility] Work Phone: Platelets bldon 02-28-2021 Platelets (Bld) [#/Vol] 156 10*3/uL 150-450 [facility] Work Phone: RBC morphologyon 02-28-2021 RBC morphology finding Nom (Bld) N CHROM NORMAL NORM C&C [facility] Work Phone: Absolute lymphocyte counton 02-18-2021 Lymphocytes Auto (Unsp spec) [#/Vol] 0.59 10*3/uL 0.83-4.51 [facility] Work Phone: Basophil percentageon 2020 Basophil percentage 10-25 SEEN /hpf [facility] Work Phone: Bilirubin [Mass/Vol] 0.20 mg/dL 0.20-1.00 [facility] Work Phone: Comment on above: For patients on eltr ombopag therapy, use of Dimension Belk TBIL is not recommended. Chloride [Moles/Vol] 105 mmol/L 98-107 [facility] Work Phone: Eosinophils/100 WBC (Bld) 0.1 % 0-5 [facility] Work Phone: Glucose [Mass/Vol] 74 mg/dL 74-106 [facility] Work Phone: Comment on above: Please note revised GLUCOSE reference range effective 2017. Neutrophils (Bld) [#/Vol] 6.3 10*3/uL 2.0-7.7 [facility] Work Phone: Potassium [Moles/Vol] 3.6 mmol/L 3.5-5.1 [facility] Work Phone: Protein [Mass/Vol] 6.8 g/dL 6.4-8.2 [facility] Work Phone: Sodium [Moles/Vol] 136 mmol/L 136-145 [facility] Work Phone: WBC (Bld) [#/Vol] 7.7 10*3/uL 4.4-11.0 [facility] Work Phone: Bilirubin Test strip Ql (U)o n 02-18-2021 Bilirubin Ql (U) Negative Negative [facility] Work Phone: Blood erythrocytes count (nu mber/volume)on 02-18-2021 RBC (Bld) [#/Vol] 3.61 10*6/uL 4.2-5.4 [facility] Blood hemoglobin measurement (mass/volume)on 02-18-2021 Hemoglobin (Bld) [Mass/Vol] 10.6 g/dL 12.0-15.0 [facility] Work Phone: Blood lymphocytes/100 leukoc yteson 02-18-2021 Lymphocytes/100 WBC (Bld) 7.7 % 19-41 [facility] Work Phone: Blood manual differential co mment interpretation (narrative result)on 12-27-2021 Manual differential comment Ravi (Bld) [Interp] See comment [facility] Work Phone: Comment on above: LYMPHOPENIA NOTED Blood monocytes/100 leukocyt eson 02-18-2021 Monocytes/100 WBC (Bld) 9.6 % 0-10 [facility] Work Phone: Blood platelet adequacy dete ction by light microscopyon 02-18-2021 Platelets LM Ql (Bld) [facility]Q [facility] Work Phone: Blood platelet mean volumeon 02-18-2021 Platelet mean volume (Bld) [Entitic vol] 12.1 fL 6.2-12.0 [facility] Work Phone: Culture, urineon 02-18-2021 Bacteria identified Cx Nom (U) Positive [facility] Work Phone: Determination of erythrocyte mean corpuscular volume (MCV)on 02-18-2021 MCV (RBC) [Entitic vol] 88.1 fL 81-99 [facility] Work Phone: Hematocrit Auto (Bld) [Volum e fraction]on 02-18-2021 Hematocrit (Bld) [Volume fraction] 31.8 % 37-47 [facility] Work Phone: Ketones Test strip Ql (U)on 02-18-2021 Ketones Ql (U) 150 mg/dl Negative [facility] Work Phone: Comment on above: CRITICAL VALUE *HCRI TICAL VALUE VERIFIED. CALLED TO GARLAND GOTTLIEB (OB)02/18/21 [id number] Ki Garcia.RESULTS READ BACK BY SAME. Laboratory - Chemistry and C hemistry - challengeon 02-18-2021 ALP [Catalytic activity/Vol] 122 U/L 45-117 [facility] Work Phone: ALT [Catalytic activity/Vol] 20 U/L 13-56 [facility] Work Phone: CO2 [Moles/Vol] 22.0 mmol/L 21.0-32.0 [facility] Work Phone: Globulin (S) [Mass/Vol] 4.4 g/dL 2.2-4.2 [facility] Work Phone: Lipase [Catalytic activity/Vol] 101 U/L 73-393 [facility] Work Phone: Urea nitrogen/Creatinine [Mass ratio] 11.9 mg/mg 10-20 [facility] Work Phone: Laboratory - Hematology and Cell countson 02-18-2021 Basophils/100 WBC (Unsp spec) 0.3 % 0-1 [facility] Work Phone: Erythrocyte distribution width (RBC) [Entitic vol] 39.8 fL 35.1-43.9 [facility] Work Phone: Erythrocyte distribution width (RBC) [Ratio] 12.2 % 11.6-14.6 [facility] Work Phone: Immature granulocytes/100 WBC (Bld) 0.700 % 0.0-0.9 [facility] Work Phone: Comment on above: IG% - Immature Granu locytes (promyelocytes, myelocytes and metamyelocytes) > 1% indicates that a LEFT SHIFT is Present. MCH (RBC) [Entitic mass] 29.4 pg 27.0-32.0 [facility] Work Phone: Neutrophils/100 WBC (Bld) 81.6 % 47-70 [facility] Work Phone: Nucleated RBC/100 WBC (Bld) [Ratio] 0 % 0-5 [facility] Work Phone: Laboratory - Microbiology an d Antimicrobial susceptibilityon 02-18-2021 SARS-CoV-2 (COVID-19) RNA JOVITA+probe Ql (Unsp spec) Detected Not Detect [facility] Work Phone: Comment on above: RESULTS CALLED [...] 02-18-2021 MCHC (RBC) [Mass/Vol] 33.3 g/dL 32-36 [facility] Work Phone: Mucus LM Ql (Urine sed)on Mucus Ql (Urine sed) 0 SEEN /hpf [facility] Work Phone: Nitrite Test strip Ql (U)on 02-18-2021 Nitrite Ql (U) Negative Negative [facility] Work Phone: No Panel Informationon 02-18 Estimated Creatinine Clearance Calc 131.30 ml/min [facility] Work Phone: Estimated GFR (MDRD) Amer 185 mL/min >60 [facility] Work Phone: Comment on above: GFR Calc Estimated GFR (MDRD) Non-Af Amer 153 mL/min >60 [facility] Work Phone: Comment on above: Non- GFR Calc SARS-CoV-2 Antigen (Rapid) SARS-CoV-2 (COVID 19) [facility] Work Phone: Platelets bldon 02-18-2021 Platelets (Bld) [#/Vol] 151 10*3/uL 150-450 [facility] Work Phone: Protein Test strip Ql (U)on 02-18-2021 Protein Ql (U) 15 mg/dl Negative [facility] Work Phone: RBC morphologyon 02-18-2021 RBC morphology finding Nom (Bld) NORM C+C NORMAL NORM C&C [facility] Work Phone: Serum or plasma albumin halle urement (mass/volume)on 02-18-2021 Albumin [Mass/Vol] 2.4 g/dL 3.2-5.0 [facility] Work Phone: Serum or plasma albumin/glob ulin mass ratioon 02-18-2021 Albumin/Globulin [Mass ratio] 0.5 {ratio} 0.9-2.4 [facility] Work Phone: Serum or plasma calcium halle urement (mass/volume)on 02-18-2021 Calcium [Mass/Vol] 8.8 mg/dL 8.5-10.1 [facility] Work Phone: Serum or plasma creatinine m easurement (mass/volume)on 02-18-2021 Creatinine [Mass/Vol] 0.50 mg/dL 0.55-1.02 [facility] Work Phone: Comment on above: The validity of the calculated GFR & GFRAA in patients over 70 years has not been determined. Clinical correlation is essential. Serum or plasma urea nitroge n measurement (mass/volume)on 02-18-2021 Urea nitrogen [Mass/Vol] 6 mg/dL 7-18 [facility] Work Phone: Squamous epithelial cells de tection in urine sediment by light microscopyon 02-18-2021 Epithelial cells.squamous LM Ql (Urine sed) 0-5 SEEN /hpf [facility] Work Phone: Thin prep Papanicolaou smear with manual screeningon 02-18-2021 Thin prep Papanicolaou smear with manual screening 21 U/L 15-37 [facility] Work Phone: Thin prep Papanicolaou smear with manual screening 9 5-15 [facility] Work Phone: Urine blood detectionon 01-24 RBC Ql (U) Negative Negative [facility] Work Phone: RBC Ql (U) 0 SEEN /hpf [facility] Work Phone: Urine clarityon 02-18-2021 Clarity (U) Sl. Cloudy Clear [facility] Work Phone: Urine color determinationon 02-18-2021 Color (U) Yellow Yellow [facility] Work Phone: Urine glucose detectionon Glucose Ql (U) 1000 mg/dl Normal [facility] Work Phone: Urine leukocyte esterase det ection by dipstickon 02-18-2021 Leukocyte esterase Test strip Ql (U) 100 /ul Negative [facility] Work Phone: Urine pHon 02-18-2021 pH (U) 6.5 [pH] [facility] Work Phone: Urine sediment bacteria coun t by microscopy (number/high power field)on 02-18-2021 Bacteria LM.HPF (Urine sed) [#/Area] 2 /[HPF] None Seen [facility] Work Phone: Urine specific gravity measu rementon 02-18-2021 Specific gravity (U) [Rel density] 1.010 [facility] Work Phone: Urobilinogen Auto test strip Ql (U)on 02-18-2021 Urobilinogen Ql (U) Normal mg/dl Normal [facility] Work Phone: Laboratory - Chemistry and C hemistry - challengeon 02-01-2021 Glucose Ql (U) Negative [facility] Work Phone: Laboratory - Urinalysison Protein Ql (U) Negative [facility] Work Phone: Vital Signs Date Time Vital Sign Value Performing Clinician Faci lity 12-26-2024 15:58-0500 Body height 157.[address] Miguel Gonzalez MD Work Phone: [facility] 12-26-2024 15:58-0500 Body mass index (BMI) [Ratio] 32 kg/m2 Dr. Miguel Gonzalez MD Work Phone: [facility] 12-26-2024 15:58-0500 Body weight 79.[address] Miguel Gonzalez MD Work Phone: 9(169)735-320411 [place] [address] 12-26-2024 15:58-0500 Diastolic blood pressure 87 mm[Hg] Dr. Miguel Gonzalez MD Work Phone: 6(251)819-502311 [place] [address] 12-26-2024 15:58-0500 Systolic blood pressure 130 mm[Hg] Dr. Miguel Gonzalez MD Work Phone: 3(485)218-330211 [place] [address] 12-14-2024 15:53-0400 Body height 157.[address] Miguel Gonzalez MD Work Phone: 2(091)532-249411 [place] [address] 12-14-2024 15:53-0400 Body mass index (BMI) [Ratio] 31.6 kg/m2 Dr. Miguel Gonzalez MD Work Phone: [facility] 12-14-2024 15:53-0400 Body weight 78.[address] Miguel Gonzalez MD Work Phone: 6(050)143-167611 [place] [address] 12-14-2024 15:53-0400 Diastolic blood pressure 78 mm[Hg] Dr. Miguel Gonzalez MD Work Phone: [facility] 12-14-2024 15:53-0400 Systolic blood pressure 120 mm[Hg] Dr. Miguel Gonzalez MD Work Phone: 0(180)338-144211 [place] [address] 12-05-2024 08:33-0400 Body mass index (BMI) [Ratio] 30.9 kg/m2 Dr. Miguel Gonzalez MD Work Phone: 6(348)725-674511 [place] [address] 12-05-2024 08:33-0400 Body weight 76.[address] Miguel Gonzalez MD Work Phone: 3(465)530-248711 [place] [address] 12-05-2024 08:33-0400 Diastolic blood pressure 80 mm[Hg] Dr. Miguel Gonzalez MD Work Phone: [facility] 12-05-2024 08:33-0400 Systolic blood pressure 121 mm[Hg] Dr. Miguel Gonzalez MD Work Phone: [facility] 11-16-2024 15:54-0400 Body height 157.[address] Miguel Gonzalez MD Work Phone: 8(037)833-540511 [place] [address] 11-16-2024 15:51-0400 Body mass index (BMI) [Ratio] 30.7 kg/m2 Dr. Miguel Gonzalez MD Work Phone: 3(862)544-862111 [place] [address] 11-16-2024 15:51-0400 Body weight 76.[address] Miguel Gonzalez MD Work Phone: 2(928)714-110711 [place] [address] 11-16-2024 15:51-0400 Diastolic blood pressure 72 mm[Hg] Dr. Miguel Gonzalez MD Work Phone: 0(775)857-808511 [place] [address] 11-16-2024 15:51-0400 Systolic blood pressure 123 mm[Hg] Dr. Mgiuel Gonzalez MD Work Phone: 4(343)072-302411 [place] [address] 10-26-2024 15:57-0400 Body height 157.[address] Miguel Gonzalez MD Work Phone: 2(301)490-086311 [place] [address] 10-26-2024 15:56-0400 Body mass index (BMI) [Ratio] 30.2 kg/m2 Dr. Miguel Gonzalez MD Work Phone: 5(002)190-208411 [place] [address] 10-26-2024 15:56-0400 Body weight 74.[address] Miguel Gonzalez MD Work Phone: 4(684)922-972711 [place] [address] 10-26-2024 15:56-0400 Diastolic blood pressure 76 mm[Hg] Dr. Miguel Gonzalez MD Work Phone: 8(134)296-857011 [place] [address] 10-26-2024 15:56-0400 Systolic blood pressure 123 mm[Hg] Dr. Miguel Gonzalez MD Work Phone: 4(521)690-805111 [place] [address] 09-30-2024 08:50-0400 Body height 157.[address] Miguel Gonzalez MD Work Phone: [facility] 09-30-2024 08:50-0400 Body mass index (BMI) [Ratio] 29.7 kg/m2 Dr. Miguel Gonzalez MD Work Phone: [facility] 09-30-2024 08:50-0400 Body weight 73.[address] Miguel Gonzalez MD Work Phone: [facility] 09-30-2024 08:50-0400 Diastolic blood pressure 82 mm[Hg] Dr. Miguel Gonzalez MD Work Phone: 6(428)140-900411 [place] [address] 09-30-2024 08:50-0400 Systolic blood pressure 124 mm[Hg] Dr. Miguel Gonzalez MD Work Phone: 5(994)306-701811 [place] [address] 09-06-2024 10:56-0400 Body height 157.[address] Miguel Gonzalez MD Work Phone: 4(942)047-374311 [place] [address] 09-06-2024 10:56-0400 Body mass index (BMI) [Ratio] 29.1 kg/m2 Dr. Miguel Gonzalez MD Work Phone: [facility] 09-06-2024 10:56-0400 Body weight 72.[address] Miguel Gonzalez MD Work Phone: 7(345)781-483711 [place] [address] 09-06-2024 10:56-0400 Diastolic blood pressure 77 mm[Hg] Dr. Miguel Gonzalez MD Work Phone: 1(511)621-680811 [place] [address] 09-06-2024 10:56-0400 Systolic blood pressure 117 mm[Hg] Dr. Miguel Gonzalez MD Work Phone: 8(483)997-804811 [place] [address] 08-03-2024 08:31-0400 Body height 157.[address] Miguel Gonzalez MD Work Phone: 8(673)446-014811 [place] [address] 08-03-2024 08:31-0400 Body mass index (BMI) [Ratio] 28.7 kg/m2 Dr. Miguel Gonzalez MD Work Phone: [facility] 08-03-2024 08:31-0400 Body weight 71.[address] Miguel Gonzalez MD Work Phone: [facility] 08-03-2024 08:31-0400 Diastolic blood pressure 84 mm[Hg] Dr. Miguel Gonzalez MD Work Phone: [facility] 08-03-2024 08:31-0400 Systolic blood pressure 126 mm[Hg] Dr. Miguel Gonzalez MD Work Phone: 1(506)520-669111 [place] [address] 07-07-2024 14:50-0400 Body height 157.[address] Miguel Gonzalez MD Work Phone: 1(491)755-618111 [place] [address] 07-07-2024 14:40-0400 Body mass index (BMI) [Ratio] 28.7 kg/m2 Dr. Miguel Gonzalez MD Work Phone: 5(754)087-253211 [place] [address] 07-07-2024 14:40-0400 Body weight 71.[address] Miguel Gonzalez MD Work Phone: 2(860)159-870511 [place] [address] 07-07-2024 14:40-0400 Diastolic blood pressure 88 mm[Hg] Dr. Miguel Gonzalez MD Work Phone: 4(741)397-960311 [place] [address] 07-07-2024 14:40-0400 Systolic blood pressure 139 mm[Hg] Dr. Miguel Gonzalez MD Work Phone: [facility] 06-29-2024 23:24-0400 Body temperature 97.9 [degF] Dr. Miguel Gonzalez MD Work Phone: [facility] 06-29-2024 23:24-0400 Diastolic blood pressure 92 mm[Hg] Dr. Miguel Gonzalez MD Work Phone: [facility] 06-29-2024 23:24-0400 Heart rate 86 /min Dr. Miguel Gonzalez MD Work Phone: [facility] 06-29-2024 23:24-0400 Respiratory rate 16 /min Dr. Miguel Gonzalez MD Work Phone: [facility] 06-29-2024 23:24-0400 SaO2% (BldA) [Mass fraction] 100 % Dr. Miguel Gonzalez MD Work Phone: [facility] 06-29-2024 23:24-0400 Systolic blood pressure 125 mm[Hg] Dr. Miguel Gonzalez MD Work Phone: [facility] 06-29-2024 21:24-0400 Body height 157.[address] Miguel Gonzalez MD Work Phone: [facility] 06-29-2024 21:24-0400 Body mass index (BMI) [Ratio] 29.1 kg/m2 Dr. Miguel Gonzalez MD Work Phone: 6(061)228-943811 [place] [address] 06-29-2024 21:24-0400 Body weight 72.[address] Miguel Gonzalez MD Work Phone: 8(484)865-232211 [place] [address] 06-22-2024 14:56-0400 Body mass index (BMI) [Ratio] 29.2 kg/m2 Dr. Miguel Gonzalez MD Work Phone: 8(148)648-487911 [place] [address] 06-22-2024 14:56-0400 Body weight 72.[address] Miguel Gonzalez MD Work Phone: 1(658)368-552711 [place] [address] 06-22-2024 14:56-0400 Diastolic blood pressure 80 mm[Hg] Dr. Miguel Gonzalez MD Work Phone: 7(995)472-670111 [place] [address] 06-22-2024 14:56-0400 Systolic blood pressure 123 mm[Hg] Dr. Miguel Gonzalez MD Work Phone: [facility] 06-07-2024 18:52-0400 Body temperature 98 [degF] Dr. Miguel Gonzalez MD Work Phone: 2(660)313-252911 [place] [address] 06-07-2024 18:52-0400 Diastolic blood pressure 79 mm[Hg] Dr. Miguel Gonzalez MD Work Phone: 2(689)707-197611 [place] [address] 06-07-2024 18:52-0400 Heart rate 85 /min Dr. Miguel Gonzalez MD Work Phone: [facility] 06-07-2024 18:52-0400 Respiratory rate 22 /min Dr. Miguel Gonzalez MD Work Phone: [facility] 06-07-2024 18:52-0400 SaO2% (BldA) [Mass fraction] 100 % Dr. Miguel Gonzalez MD Work Phone: [facility] 06-07-2024 18:52-0400 Systolic blood pressure 125 mm[Hg] Dr. Miguel Gonzalez MD Work Phone: [facility] 06-07-2024 13:19-0400 Body height 157.[address] Miguel Gonzalez MD Work Phone: [facility] 06-07-2024 13:19-0400 Body mass index (BMI) [Ratio] 29.8 kg/m2 Dr. Miguel Gonzalez MD Work Phone: [facility] 06-07-2024 13:19-0400 Body weight 73.[address] Miguel Gonzalez MD Work Phone: [facility] 04-24-2023 13:35-0500 Body temperature 98.3 [degF] Dr. Kelle Oconnell Work Phone: [facility] 04-24-2023 13:35-0500 Diastolic blood pressure 55 mm[Hg] Dr. Kelle Oconnell Work Phone: [facility] 04-24-2023 13:35-0500 Heart rate 85 /min Dr. Kelle Oconnell Work Phone: [facility] 04-24-2023 13:35-0500 Respiratory rate 16 /min Dr. Kelle Oconnell Work Phone: [facility] 04-24-2023 13:35-0500 SaO2% (BldA) [Mass fraction] 100 % Dr. Kelle Oconnell Work Phone: [facility] 04-24-2023 13:35-0500 Systolic blood pressure 103 mm[Hg] Dr. Kelle Oconnell Work Phone: [facility] 04-24-2023 12:18-0500 Body height 157.[address] Kelle Oconnell Work Phone: [facility] 04-24-2023 12:18-0500 Body mass index (BMI) [Ratio] 28.3 kg/m2 Dr. Kelle Oconnell Work Phone: [facility] 04-24-2023 12:18-0500 Body weight 70.[address] Kelle Oconnell Work Phone: [facility] 04-24-2023 11:05-0500 Body mass index (BMI) [Ratio] 28.5 kg/m2 Dr. Kelle Oconnell Work Phone: [facility] 04-24-2023 11:05-0500 Body weight 70.[address] Kelle Oconnell Work Phone: [facility] 04-24-2023 11:05-0500 Diastolic blood pressure 86 mm[Hg] Dr. Kelle Oconnell Work Phone: [facility] 04-24-2023 11:05-0500 Systolic blood pressure 138 mm[Hg] Dr. Kelle Oconnell Work Phone: [facility] 03-27-2023 15:09-0500 Body height 157.[address] Kelle Oconnell Work Phone: [facility] 03-27-2023 15:09-0500 Body mass index (BMI) [Ratio] 29.9 kg/m2 Dr. Kelle Oconnell Work Phone: [facility] 03-27-2023 15:09-0500 Body weight 74.[address] Kelle Oconnell Work Phone: [facility] 03-27-2023 15:09-0500 Diastolic blood pressure 80 mm[Hg] Dr. Kelle Oconnell Work Phone: [facility] 03-27-2023 15:09-0500 Systolic blood pressure 115 mm[Hg] Dr. Kelle Oconnell Work Phone: [facility] 03-10-2023 14:42-0500 Body height 157.[address] Kelle Oconnell Work Phone: [facility] 03-10-2023 14:40-0500 Body mass index (BMI) [Ratio] 30.7 kg/m2 Dr. Kelle Oconnell Work Phone: [facility] 03-10-2023 14:40-0500 Body weight 76.[address] Kelle Oconnell Work Phone: [facility] 03-10-2023 14:40-0500 Diastolic blood pressure 76 mm[Hg] Dr. Kelle Oconnell Work Phone: [facility] 03-10-2023 14:40-0500 Systolic blood pressure 122 mm[Hg] Dr. Kelle Oconnell Work Phone: [facility] 12-18-2022 14:00-0400 Body height 157.[address] Kelle Oconnell Work Phone: [facility] 12-18-2022 13:59-0400 Body mass index (BMI) [Ratio] 30.4 kg/m2 Dr. Kelle Oconnell Work Phone: [facility] 12-18-2022 13:59-0400 Body weight 75.[address] Kelle Oconnell Work Phone: [facility] 12-18-2022 13:59-0400 Diastolic blood pressure 74 mm[Hg] Dr. Kelle Oconnell Work Phone: [facility] 12-18-2022 13:59-0400 Systolic blood pressure 112 mm[Hg] Dr. Kelle Oconnell Work Phone: [facility] 05-24-2021 14:05-0400 Body height 157.[address] Kelle Oconnell Work Phone: [facility] Work Phone: 05-24-2021 14:05-0400 Body mass index (BMI) [Ratio] 27.1 kg/m2 Dr. Kelle Oconnell Work Phone: [facility] Work Phone: 05-24-2021 14:05-0400 Body weight 67.[address] Kelle Oconnell Work Phone: [facility] Work Phone: 05-24-2021 14:05-0400 Diastolic blood pressure 74 mm[Hg] Dr. Kelle Oconnell Work Phone: [facility] Work Phone: 05-24-2021 14:05-0400 Systolic blood pressure 112 mm[Hg] Dr. Kelle Oconnell Work Phone: [facility] Work Phone: 04-11-2021 11:46-0500 Body temperature 98.1 [degF] Dr. Kelle Oconnell Work Phone: [facility] Work Phone: 04-11-2021 11:46-0500 Diastolic blood pressure 76 mm[Hg] Dr. Kelle Oconnell Work Phone: [facility] Work Phone: 04-11-2021 11:46-0500 Heart rate 86 /min Dr. Kelle Oconnell Work Phone: [facility] Work Phone: 04-11-2021 11:46-0500 Respiratory rate 16 /min Dr. Kelle Oconnell Work Phone: [facility] Work Phone: 04-11-2021 11:46-0500 SaO2% (BldA) [Mass fraction] 99 % Dr. Kelle Oconnell Work Phone: [facility] Work Phone: 04-11-2021 11:46-0500 Systolic blood pressure 125 mm[Hg] Dr. Kelle Oconnell Work Phone: [facility] Work Phone: 04-09-2021 13:44-0500 Body mass index (BMI) [Ratio] 29.5 kg/m2 Dr. Kelle Oconnell Work Phone: [facility] Work Phone: 04-09-2021 13:44-0500 Body weight 73.[address] Kelle Oconnell Work Phone: [facility] Work Phone: 04-08-2021 14:32-0500 Body mass index (BMI) [Ratio] 29.8 kg/m2 Dr. Kelle Oconnell Work Phone: [facility] Work Phone: 04-08-2021 14:32-0500 Body weight 73.[address] Kelle Oconnell Work Phone: [facility] Work Phone: 04-08-2021 14:32-0500 Diastolic blood pressure 86 mm[Hg] Dr. Kelle Oconnell Work Phone: [facility] Work Phone: 04-08-2021 14:32-0500 Systolic blood pressure 124 mm[Hg] Dr. Kelle Oconnell Work Phone: [facility] Work Phone: 04-02-2021 14:19-0500 Body mass index (BMI) [Ratio] 29.8 kg/m2 Dr. Kelle Oconnell Work Phone: [facility] Work Phone: 04-02-2021 14:19-0500 Body weight 73.[address] Kelle Oconnell Work Phone: [facility] Work Phone: 04-02-2021 14:19-0500 Diastolic blood pressure 82 mm[Hg] Dr. Kelle Oconnell Work Phone: [facility] Work Phone: 04-02-2021 14:19-0500 Systolic blood pressure 132 mm[Hg] Dr. Kelle Oconnell Work Phone: [facility] Work Phone: 03-29-2021 09:11-0500 Body mass index (BMI) [Ratio] 29.6 kg/m2 Dr. Kelle Oconnell Work Phone: [facility] Work Phone: 03-29-2021 09:11-0500 Body weight 73.[address] Kelle Oconnell Work Phone: [facility] Work Phone: 03-29-2021 09:11-0500 Diastolic blood pressure 80 mm[Hg] Dr. Kelle Oconnell Work Phone: [facility] Work Phone: 03-29-2021 09:11-0500 Systolic blood pressure 128 mm[Hg] Dr. Kelle Oconnell Work Phone: [facility] Work Phone: 03-22-2021 14:51-0500 Body mass index (BMI) [Ratio] 29.2 kg/m2 Dr. Kelle Oconnell Work Phone: [facility] Work Phone: 03-22-2021 14:51-0500 Body weight 72.[address] Kelle Oconnell Work Phone: [facility] Work Phone: 03-22-2021 14:51-0500 Diastolic blood pressure 88 mm[Hg] Dr. Kelle Oconnell Work Phone: [facility] Work Phone: 03-22-2021 14:51-0500 Systolic blood pressure 126 mm[Hg] Dr. Kelle Oconnell Work Phone: [facility] Work Phone: 03-14-2021 10:30-0500 Body mass index (BMI) [Ratio] 29.1 kg/m2 Dr. Kelle Oconnell Work Phone: [facility] Work Phone: 03-14-2021 10:30-0500 Body weight 72.[address] Kelle Oconnell Work Phone: [facility] Work Phone: 03-14-2021 10:30-0500 Diastolic blood pressure 82 mm[Hg] Dr. Kelle Oconnell Work Phone: [facility] Work Phone: 03-14-2021 10:30-0500 Systolic blood pressure 130 mm[Hg] Dr. Kelle Oconnell Work Phone: [facility] Work Phone: 02-28-2021 13:02-0500 Body weight 68.[address] Kelle Oconnell Work Phone: [facility] Work Phone: 02-28-2021 13:02-0500 Diastolic blood pressure 70 mm[Hg] Dr. Kelle Oconnell Work Phone: [facility] Work Phone: 02-28-2021 13:02-0500 Systolic blood pressure 110 mm[Hg] Dr. Kelle Oconnell Work Phone: [facility] Work Phone: 02-18-2021 10:09-0500 Body temperature 99 [degF] Dr. Kelle Oconnell Work Phone: [facility] Work Phone: 02-18-2021 10:09-0500 Diastolic blood pressure 69 mm[Hg] Dr. Kelle Oconnell Work Phone: [facility] Work Phone: 02-18-2021 10:09-0500 Heart rate 88 /min Dr. Kelle Oconnell Work Phone: [facility] Work Phone: 02-18-2021 10:09-0500 SaO2% (BldA) [Mass fraction] 98 % Dr. Kelle Oconnell Work Phone: [facility] Work Phone: 02-18-2021 10:09-0500 Systolic blood pressure 104 mm[Hg] Dr. Kelle Oconnell Work Phone: [facility] Work Phone: 02-18-2021 10:06-0500 Body mass index (BMI) [Ratio] 27.4 kg/m2 Dr. Kelle Oconnell Work Phone: [facility] Work Phone: 02-18-2021 10:06-0500 Body weight 68.[address] Kelle Oconnell Work Phone: [facility] Work Phone: 02-01-2021 15:25-0500 Body mass index (BMI) [Ratio] 28.3 kg/m2 Dr. Kelle Oconnell Work Phone: [facility] Work Phone: 02-01-2021 15:25-0500 Body weight 70.[address] Kelle Oconnell Work Phone: [facility] Work Phone: 02-01-2021 15:25-0500 Diastolic blood pressure 78 mm[Hg] Dr. Kelle Oconnell Work Phone: [facility] Work Phone: 02-01-2021 15:25-0500 Systolic blood pressure 130 mm[Hg] Dr. Kelle Oconnell Work Phone: [facility] Work Phone: Encounters Encounter Date Encounter Type Care Provider Facility Start: 01-20-2025 ambulatory Miguel Gonzalez Facility:[facility] Start: 01-04-2025 ambulatory [facility] Facility:[facility] Start: 01-04-2025 End: 01-04-2025 ambulatory [facility] Facility[facility] Start: 12-26-2024 End: 12-26-2024 ambulatory Valorie Law Miller Facility:[facility] Start: 12-23-2024 End: 12-23-2024 ambulatory [facility] Facility:[facility] Start: 12-14-2024 End: 12-14-[address] Cassandra Lockhart MD -[facility] Work Phone: Start: 12-14-2024 End: 12-14-2024 ambulatory [facility] Facility:[facility] Start: 12-05-2024 End: 12-05-2024 Patient encounter procedure John FINCH -[facility] Work Phone: Start: 12-05-2024 End: 12-05-[address] Miguel Gonzalez MD Work Phone: [facility] Start: 11-16-2024 End: 11-16-[address] Valorie Ramos DO -[facility] Work Phone: Start: 11-16-2024 End: 11-16-[address] Miguel Gonzalez MD Work Phone: [facility] Start: 11-16-2024 End: 11-16-2024 ambulatory [facility] Facility:[facility] Start: 10-26-2024 End: 10-26-[address] Valorie Ramos DO -[facility] Work Phone: Start: 10-26-2024 End: 10-26-[address] Miguel Gonzalez MD Work Phone: [facility] Start: 09-30-2024 End: 09-30-2024 Patient encounter procedure Indiana Lazo CNM -[facility] Work Phone: Start: 09-30-2024 End: 09-30-[address] Miguel Gonzalez MD Work Phone: -[facility] Start: 09-06-2024 End: 09-06-[address] Valorie Ramos DO -[facility] Work Phone: Start: 09-06-2024 End: 09-06-[address] Miguel Gonzalez MD Work Phone: -[facility] Start: 08-30-2024 End: 08-30-2024 ambulatory [facility] Start: 08-22-2024 End: 08-22-2024 Emergency department patient visit [facility] Start: 08-03-2024 End: 08-03-2024 Patient encounter procedure John FINCH -[facility] Work Phone: Start: 08-03-2024 End: 08-03-[address] Miguel Gonzalez MD Work Phone: [facility] Work Phone: Start: 07-07-2024 End: 07-07-[address] Cassandra Lockhart MD -[facility] Work Phone: Start: 07-07-2024 End: 07-07-[address] Miguel Gonzalez MD Work Phone: [facility] Work Phone: Start: 07-07-2024 End: 07-07-2024 ambulatory Miguel Gonzalez Facility:[facility] Start: 07-01-2024 Non-patient / Non-visit Isa Rios RN -[facility] Work Phone: Start: 07-01-2024 ambulatory Isa Rios Facility :[facility] Start: 06-29-2024 End: 06-29-2024 Emergency department patient visit Dr. Miguel Gonzalez MD Work Phone: -Emergency Department Work Phone: Start: 06-22-2024 End: 06-22-[address] Cassandra Lockhart MD -[facility] Work Phone: Start: 06-22-2024 End: 06-22-2024 ambulatory [facility] Facility:[facility] Start: 06-07-2024 End: 06-07-2024 Emergency department patient visit Dr. Miguel Gonzalez MD Work Phone: -Emergency Department Work Phone: Start: 04-26-2024 End: 04-26-[address] Miguel Gonzalez MD Work Phone: [facility] Work Phone: Start: 04-26-2024 End: 04-26-2024 Patient encounter [facility] Start: 04-26-2024 End: 04-26-2024 ambulatory [facility] Facility:[facility] Start: 04-24-2023 End: 04-24-[address] Kelle Oconnell Work Phone: [facility] Work Phone: Start: 04-24-2023 End: 04-24-[address] Kelle Oconnell Work Phone: [facility]-Medical Out Work Phone: Start: 04-24-2023 End: 04-24-[address] Kelle Oconnell Work Phone: [facility] Work Phone: Start: 03-27-2023 End: 03-27-[address] Kelle Oconnell Work Phone: [facility] Work Phone: Start: 03-27-2023 End: 03-27-[address] Kelle Oconnell Work Phone: [facility] Work Phone: Start: 03-10-2023 End: 03-10-[address] Kelle Oconnell Work Phone: [facility] Work Phone: Start: 03-10-2023 End: 03-10-[address] K[facility]nell [facility] Work Phone: Start: 03-10-2023 End: 03-10-[address] Kelle Oconnell Work Phone: [facility] Work Phone: Start: 02-13-2023 End: 02-13-[address] Kelle Oconnell Work Phone: [facility] Work Phone: Start: 02-13-2023 End: 02-13-[address] Kelle [facility]connell [facility]: Start: 02-11-2023 End: 02-11-[address] Kelle Oconnell Work Phone: [facility] Work Phone: Start: 02-11-2023 End: 02-11-[address] Kelle Oconnell [facility] Start: 12-18-2022 End: 12-18-[address] Kelle Oconnell Work Phone: [facility] Work Phone: Start: 08-20-2022 End: 08-20-2022 Emergency department patient visit LEATHA CALVIN Facility:[facility] Start: 05-24-2021 End: 05-24-[address] Kelle Oconnell [facility] Start: 05-24-2021 End: 05-24-[address] Kelle Oconnell Work Phone: [facility] Start: 05-16-2021 End: 05-16-[address] Kelle Oconnell Work Phone: [facility] Start: 04-11-2021 Non-patient / Non-visit Dr. Kelle Oconnell Work Phone: [facility] Start: 04-10-2021 Non-patient / Non-visit Dr. Kelle Oconnell Work Phone: [facility] Start: 04-09-2021 Non-patient / Non-visit Dr. Kelle Oconnell Work Phone: [facility] Start: 04-09-2021 End: 04-11-2021 Evaluation and management of inpatient Dr. Kelle Oconnell Work Phone: [facility] Start: 04-08-2021 End: 04-08-[address] Kelle Oconnell Work Phone: [facility] Start: 04-02-2021 End: 04-02-[address] Kelle Oconnell Work Phone: [facility] Start: 03-29-2021 End: 03-29-[address] Kelle Oconnell Work Phone: [facility] Start: 03-22-2021 End: 03-22-[address] Kelle Oconnell Work Phone: [facility]Laboratory, Specimen Start: 03-22-2021 End: 03-22-[address] Kelle Oconnell Work Phone: [facility] Start: 03-14-2021 End: 03-14-[address] Kelle Oconnell Work Phone: [facility] Start: 03-14-2021 End: 03-14-[address] Kelle Oconnell Work Phone: [facility]-Ultrasound, [facility] Start: 02-28-2021 End: 02-28-[address] Kelle Oconnell Work Phone: [facility] Start: 02-18-2021 Non-patient / Non-visit Dr. Kelle Oconnell Work Phone: [facility] Start: 02-18-2021 End: 02-18-[address] Kelle Oconnell Work Phone: [facility] Start: 02-01-2021 End: 02-01-[address] Kelle Oconnell [facility] Procedures Date Procedure Procedure Detail Performing Clinician [...] HCV Quant by PCR testing - HCVPCR #[id number] Non Reactive: < 0.8 Equivocal: >/= 0.8 [...] dip stick/tabl et reagent auto microscopy Dr. Mgiuel Gonzalez MD Work Phone: Start: 06-07-2024 Transvaginal [...] section History of delivery, currently John Ariza ASSISTANT SALES DIRECTOR-C H/O: section History of delivery, currently Dr. Valorie Ramos DO H/O: section History of delivery, currently Indiana Lazo CNM H/O: section History of delivery, currently Dr. Valorie Ramos DO H/O: section History of delivery, currently Dr. Valorie Ramos DO H/O: section History of delivery, currently John Ariza ASSISTANT SALES DIRECTOR-C H/O: section History of delivery, currently Dr. Cassandra Lockhart MD H/O: section History of delivery, currently Dr. Valorie Ramos DO Plan of Treatment Date Care Activity Detail Author Start: 12-26-2024 End: 12-26-2024 Patient encounter procedure History of delivery, currently -[facility] Work Phone: Start: 12-23-2024 Ultrasound scan for growth OB Limited With [employer] [facility] Start: 12-23-2024 Patient encounter procedure Registered Clinical -Ultrasound [facility] Work Phone: Start: 12-14-2024 End: 12-14-2024 Patient encounter procedure History of delivery, currently -[facility] Work Phone: Start: 12-14-2024 [facility] Start: 11-16-2024 [facility] Start: 07-07-2024 CBC W Auto Differential panel - Blood [facility] Start: 07-07-2024 Hemoglobin A1c/Hemoglobin.total in Blood [facility] Start: 07-07-2024 Hepatitis C antibody measurement [facility] Start: 07-07-2024 Procedure [facility] Start: 07-07-2024 Rubella IgG measurement [facility] Start: 07-07-2024 Serologic test for syphilis [facility] Start: 07-07-2024 [facility] Start: 06-29-2024 [facility] Start: 06-07-2024 [facility] Start: 02-18-2021 Iv infusion hydration each additional hour HYDRATE IV INFUSION ADD-ON [facility] Work Phone: Start: 02-18-2021 Ther proph/dx njx iv push single/1st sbst/drug THER/PROPH/DIAG INJ IV PUSH [facility] Work Phone: Start: 02-18-2021 Therapeutic injection iv push each new drug TX/PRO/DX [facility] Work Phone: CBC W Auto Different ial panel - Blood [facility] CBC W Auto Different ial panel - Blood [facility] Chlamydia deoxyribon ucleic acid detection [facility] Erythrocyte mean cor puscular volume determination [facility] Hematocrit [Volume F raction] of Blood [facility] Hemoglobin [Mass/vol ume] in Blood [facility] Hepatitis B surface antigen measurement [facility] Hepatitis B virus krueger rface Ag [Presence] in Serum [facility] Hepatitis C antibody measurement [facility] HIV 1+2 Ab+HIV1 p24 Ag [Presence] in Serum or Plasma by Immunoassay [facility] Leukocytes [#/volume ] in Blood [facility] Liquid based cervica l cytology screening [facility] Mean corpuscular hem oglobin concentration determination [facility] Mean corpuscular hem oglobin determination [facility] Measurement of gluco se 2 hours after glucose challenge for glucose tolerance test [facility] Neutrophil count [facility] Neutrophil percent differential count [facility] Patient Education [facility] Work Phone: Patient referral [facility] Work Phone: Platelets [#/volume] in Blood [facility] Red blood cell count [facility] Red cell distributio n width determination [facility] Rubella IgG measurement [facility] Serologic test for syphilis [facility] Treponema sp Ab [Pre sence] in Serum [facility] Ultrasound scan for growth [facility] Payers Date Payer Category Payer Self-pay [id number] 2020 Unknown [id number] 1990 Unknown [id number] 2.16. [id number] Unknown [id number] 2.16.8 [id number] Unknown [id number] 2.16.8 [id number] Unknown [id number] 2.16.8 [id number] Unknown [id number] 2.16.8 40.1.781322.3.579.2.462 Unknown [id number] 2.16.8 40.1.174530.3.579.2.462 Unknown [id number] 2.16.8 40.1.799960.3.579.2.462 Unknown [id number] 2.16.8 40.1.753919.3.579.2.462 Unknown [id number] 2.16.8 40.1.920680.3.579.2.462 Unknown [id number] 2.16.8 40.1.770538.3.579.2.462 Unknown [id number] 2.16.8 40.1.402734.3.579.2.462 Unknown [id number] 2.16.8 40.1.938296.3.579.2.462 Unknown [id number] 2.16.8 40.1.001395.3.579.2.462 Unknown [id number] 2.16.8 40.1.609294.3.579.2.462 Unknown [id number] 2.16.8 40.1.901488.3.579.2.462 Unknown [id number] 2.16.8 40.1.549690.3.579.2.462 Unknown [id number] 2.16.8 40.1.399277.3.579.2.462 Unknown [id number] 2.16.8 40.1.430915.3.579.2.462 Unknown [id number] 2.16.8 40.1.003113.3.579.2.462 Unknown [id number] 2.16.8 [id number] Unknown [id number] 2.16.8 [id number] Social History Date Type Detail Facility Start: 05-24-2021 End: 04-24-2023 Tobacco smoking status COIS Unknown if ever smoked [facility] Start: 1990 Sex Assigned At Female [facility] Start: 10-09-2023 End: 08-03-2024 Tobacco smoking status NHIS Never smoked tobacco (finding) [facility] Start: 05-10-2024 End: 06-07-2024 Sex Female (finding) [facility] Patient currentl y [facility] Mental Status Date Assessment Result Facility 04-24-2023 Cognitive function Voice/Name [facility] Work Phone: Clinical Notes 06-07-2024 to 12-14-2024 Note Date & Type Note Facility 12-14-2024 Progress note [facility] 12-14-2024 Progress note Note Date/Time December 14, 2024 5:22pm [facility] [address], [address] [place] [address] OFFICE VISIT Date of Service: 12/14/24 MR#: [id number] Acct: [id number] Name: LEONOR CAMACHO Rep #: [id number] : 1990 Provider: Dr. 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 Chantelle Hyman Delivery Date: 04/09/21 Last [...] high risk , unspecified, third trimester Comment: [id number]; JERZY 01/26/25; PC: [place]; : Boogie (2) [...] ernst MD> Date _ Cassandra Lockhart MD [facility] Signature: Date (if applicable) CC: ~ [facility] Work Phone: 1(439) 130-983910-13-2025 Progress [facility] [address] [place] [address], [address] [place] [id number] OFFICE VISIT Date of Service: 12/05/24 MR#: [id number] Acct: [id number] Name: LEONOR CAMACHO Rep #: [id number] : 1990 Provider: JOSETTE Ariza Age/Sex: 34/F Location: [facility] [place] Status: Signed Intake Vital Signs 09/30/24 08:50 11/16/24 15:54 12/05/24 08:33 Height 5 ft 2 in 5 ft 2 in 5 ft 2 in Weight: 169 lb 5 oz BMI 30.9 BP 121/80 H Intake Visit Reasons: 32wk ob 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 Chantelle Hyman Delivery Date: 04/09/21 Last [...] high risk , unspecified, third trimester Comment: [id number]; JERZY 01/26/25; PC: Alfred & Devang; : [...] care and follow up. 12/05/24 0850 s ASSISTANT SALES DIRECTOR ASSISTANT SALES DIRECTOR-C> Date _ John Potter ASSISTANT SALES DIRECTOR ASSISTANT SALES DIRECTOR-C Cosigner Signature: Date (if applicable) CC: ~ [facility] [id number] [facility] [address] [place] [address], [address] [place] [address] OFFICE VISIT Date of Service: 11/16/24 MR#: [id number] Acct: [id number] Name: LEONOR CAMACHO Rep #: [id number] : 1990 Provider: Dr. 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 Chantelle Hyman Delivery Date: 04/09/21 Last [...] high risk , unspecified, second trimester Comment: [id number]; JERZY 01/26/25; PC: Aden; : Boogie (3) [...] Cosigner Signature: Date (if applicable) CC: ~ [facility]09-24-2025 Progress note Author Valorie Miller [facility] Note Date/Time November 16, 2024 4:24pm [facility] [address] [place] [address], [address] [place] [address] OFFICE VISIT Date of Service: 11/16/24 MR#: [id number] Acct: [id number] Name: LEONOR CAMACHO Rep #: [id number] : 1990 Provider: Dr. 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 Chantelle Hyman Delivery Date: 04/09/21 Last [...] high risk , unspecified, second trimester Comment: [id number]; JERZY 01/26/25; PC: [place]; : Boogie (3) [...] shoulder dystocia: Status: Acute Comment: [facility] d/t this Orders: Orders POC Urinalysis 2 Dip (Clinic) Today 11/16/24 2288 <Electronically signed by Valorie Golden DO> Date _ Valorie Ramos DO [facility] Signature: Date (if applicable) CC: ~ [facility]. [facility] Work Phone: 1(527) 868-372509-03-2025 Progress [facility] [address] [place] [address], [address] [place] [address] OFFICE VISIT Date of Service: 10/26/24 MR#: [id number] Acct: [id number] Name: LEONOR CAMACHO Rep #: [id number] : 1990 Provider: Dr. 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 Chantelle Hyman Delivery Date: 04/09/21 Last [...] high risk , unspecified, second trimester Comment: [id number]; JERZY 01/26/25; PC: Alfred & Devang; : [...] Cosigner Signature: Date (if applicable) CC: ~ [facility]09-03-2025 Progress note Author Valorie Miller [facility] Note Date/Time October 26, 2024 4:17pm [facility] [address] [place] [address], [address] [place] [address] OFFICE VISIT Date of Service: 10/26/24 MR#: [id number] Acct: [id number] Name: LEONOR CAMACHO Rep #: [id number] : 1990 Provider: Dr. 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 Chantelle Hyman Delivery Date: 04/09/21 Last [...] high risk , unspecified, second trimester Comment: [id number]; JERZY 01/26/25; PC: Aden; : Boogie (2) [...] Cosigner Signature: Date (if applicable) CC: ~ [facility] Work Phone: 1(739) 874-899508-08-2025 Progress [facility] [address] [place] [address], [address] [place] [address] OFFICE VISIT Date of Service: 09/30/24 MR#: [id number] Acct: [id number] Name: LEONOR CAMACHO Rep #: [id number] : 1990 Provider: RICHIE Lazo Age/Sex: 33/F Location: [facility] [place] Status: Signed Intake Vital Signs 08/03/24 08:31 09/06/24 10:56 09/30/24 08:50 Height 5 ft 2 in 5 ft 2 in 5 ft 2 in Weight: 157 lb 159 lb 6 oz 162 lb 4 oz BMI 28.7 29.1 29.7 BP 126/84 H 117/77 124/82 H Intake Visit Reasons: 23wk ob Chief Complaint: 23wk OB 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 Chantelle Hyman Delivery Date: 04/09/21 Last [...] high risk , unspecified, second trimester Comment: [id number]; JERZY 01/26/25; PC: Aden; : Boogie (2) [...] Cosigner Signature: Date (if applicable) CC: ~ [facility]07-15-2025 Evaluation note* Diagnosis Onset Date [...] Supervision of high-risk acute December 14 3:50pm [facility] Work Phone: 1(110) 514-119207-15-2025 Evaluation note* Diagnosis Onset Date Resolution Status [...] Supervision of high-risk acute December 26 3:49pm [facility] Work Phone: 1([phone]) 853-625406-11-2025 Evaluation note* Diagnosis Onset Date Resolution Status [...] of high-risk acute November 16, 2024 3:47pm [facility] Work Phone: 1(325) 228-750105-15-2025 Evaluation note* Diagnosis Onset Date Resolution Status [...] high-risk a cute July 07, 2024 2:38pm [facility] Work Phone: 1(449) 714-954705-15-2025 Evaluation note* Diagnosis Onset Date Resolution Status [...] high-risk acute August 03, 2024 8:22am [facility] Work Phone: 1([phone]) 217-132105-15-2025 Evaluation note* Diagnosis Onset Date Resolution Status [...] of high-risk acute September 06, 2024 10:42am [facility] Work Phone: 1([phone]) 560-367905-15-2025 Evaluation note* Diagnosis Onset Date Resolution Status [...] high-risk acute September 30, 2024 8:46am [facility] Work Phone: 1(125) 331-999005-15-2025 Evaluation note* Diagnosis Onset Date Resolution Status [...] of high-risk acute October 26 025 3:45pm [facility] Work Phone: 1(920) 811-110005-15-2025 Progress [facility] [address] [place] [address], [address] [place] [address] OFFICE VISIT Date of Service: 07/07/24 MR#: [id number] Acct: [id number] Name: LEONOR CAMACHO Rep #: [id number] : 1990 Provider: Dr. 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 Note Date/Time July 07, 2024 3:13p [facility] [address] [place] [address], [address] [place] [address] OFFICE VISIT Date of Service: 07/07/24 MR#: [id number] Acct: [id number] Name: LEONOR CAMACHO Rep #: [id number] : 1990 Provider: Dr. 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 Date Name GA/Weeks Outcome Route Bth Weight Infant Gen Labor Lgth Anesthesia Del Locatn Provider FOB 04/09/21 Alfred 39 live - full term 7lbs 9 ounces Female epidural [facility] Chantelle Hyman 10/02/23 Devang 39 live - full term 7lbs 10oz Female spinal [facility] Dr. 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 Miguel Gonzalez MD Status:REG E R Location: ED HPI History of Present Illness Chief Complaint: Abd Pain Narrative Narrative: 33-year-old female, G3, P2 presents at the direction of her FOOD SAFETY OFFICER's at [place] for evaluation for possible ectopic . She [...] tried to make an appointment with her FOOD SAFETY OFFICER but they states that she needs to be ruled out for an ectopic given that she has been having a few weeks of rightpelvic pain that is intermittent. 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 Valorie Adams with FOOD SAFETY OFFICER who agrees with outpatient follow-up in approximately 2 weeks. At this point in time, I feel she can be discharged to follow-up with FOOD SAFETY OFFICER. She will return with vaginal bleeding, increased [...] 79.4 H Lymph % (Auto) 13.3 L Walton % (Auto) 6.3 Eos % (Auto) 0.2 [...] Albumin/Globulin Ratio 1.4 Lipase 37 HCG, Quant 57964 H Serum , Qual POSITIVE Urine Color Yellow Urine Clarity Sl. Cloudy Urine pH 7.0 Ur Specific [place] 1.010 Urine Protein 15 H Urine Glucose [...] IMPRESSION: UNREMARKABLE FIRST TRIMESTER ULTRASOUND. Reading Location: [id number] Management Discussion w/another healthcare provider: [facility] (Dr. Adams, FOOD SAFETY OFFICER) Discharge Plan Triage Chief Complaint: Abd Pain [...] - Activity Restrictions/Additional Instructions: Follow-up with the FOOD SAFETY OFFICER in 2 weeks. Return with vaginal bleeding, increased pain, new or worsening symptoms. Start vitamins. Print Language: Telugu Disposition Disposition: Home, Self Care What to do if you have Problems For any increased pain, shortness of breath, bleeding, nausea or vomiting, chestpain, or any unexpected problems, contact your Primary Care Provider. Call Doctors [facility] ([phone]) or report tothe closest Emergency Room. Call 911 if necessary. 06/07/24 1851 Cosigner Signature (if applicable): CC: Dr. Miguel Gonzalez MD ~ Signed [facility]04-15-2025 Radiology Diagnostic study note [facility] Imaging Services [address] [place], [place] [address] Transvaginal w/Preg US MR#: [id number] Acct: [id number] Name: LEONOR CAMACHO Rep #: [id number] : 1990 F 33 From: Bharath Mirza MD PCP: Dr. Miguel Gonzalez MD Status: REG E R Study:Transvaginal w/Preg US Date of Exam: 06/07/24 Exam# [id number] Ordering Dr: Isidro Angulo ASSISTANT SALES DIRECTOR-C PROCEDURE: TRANSVAGINAL W/PREG US 06/07/2024 REASON FOR [...] and unremarkable. DIMENSIONS: Parameter Measurement / EGA [place] Rump Length: 5 mm/6 weeks 3 days Gestational Sac: 20 mm/6 weeks 6 days Yolk Sac: 3 mm/ ESTIMATED GESTATIONAL AGE: By Ultrasound: 6 weeks 5 days By LMP: 5 weeks 2 days ESTIMATED DATE OF DELIVERY: By Ultrasound: 01/26/2025 By LMP: 02/05/2025 US/Transvaginal w/Preg US IMPRESSION: UNREMARKABLE FIRST TRIMESTER ULTRASOUND. Reading Location: [id number] CC: JOSETTE Moran; Dr. Miguel Gonzalez MD ~ Merchandising Consultant: Signed [facility]04-15-2025 Discharge summary Author Heriberto Frazier [facility] Note Date/Time June 07, 2024 6:5 1pm [facility] Medical Records Department [address] [place] [address] Emergency Department Summary 06/07/24 MR#: [id number] Acct: [id number] Name: LEONOR CAMACHO Rep #:[id number] : 1990 33 From: Heriberto Frazier MD PCP: Dr. Miguel Gonzalez MD Status:REG E R Location: ED HPI History of Present Illness Chief Complaint: Abd Pain Narrative Narrative: 33-year-old female, G3, P2 presents at the direction of her FOOD SAFETY OFFICER's at [place] for evaluation for possible ectopic . She [...] tried to make an appointment with her FOOD SAFETY OFFICER but they states that she needs to be ruled out for an ectopic given that she has been having a few weeks of rightpelvic pain that is intermittent. 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 Valorie Adams with FOOD SAFETY OFFICER who agrees with outpatient follow-up in approximately 2 weeks. At this point in time, I feel she can be discharged to follow-up with FOOD SAFETY OFFICER. She will return with vaginal bleeding, increased [...] 79.4 H Lymph % (Auto) 13.3 L Walton % (Auto) 6.3 Eos % (Auto) 0.2 [...] Albumin/Globulin Ratio 1.4 Lipase 37 HCG, Quant 84722 H Serum , Qual POSITIVE Urine Color Yellow Urine Clarity Sl. Cloudy Urine pH 7.0 Ur Specific [place] 1.010 Urine Protein 15 H Urine Glucose [...] IMPRESSION: UNREMARKABLE FIRST TRIMESTER ULTRASOUND. Reading Location: [id number] Management Discussion w/another healthcare provider: [facility] (Dr. Adams, FOOD SAFETY OFFICER) Discharge Plan Triage Chief Complaint: Abd Pain [...] - Activity Restrictions/Additional Instructions: Follow-up with the FOOD SAFETY OFFICER in 2 weeks. Return with vaginal bleeding, increased pain, new or worsening symptoms. Start vitamins. Print Language: Telugu Disposition Disposition: Home, Self Care What to do if you have Problems For any increased pain, shortness of breath, bleeding, nausea or vomiting, chestpain, or any unexpected problems, contact your Primary Care Provider. Call [facility] ([phone]) or report to the closest Emergency Room. Call 911 if necessary. 06/07/24 1851 <Electronically signed by Heriberto Frazier MD> Cosigner Signature (if applicable): CC: Dr. Miguel Gonzalez MD ~ Signed [facility] Work Phone: Evaluation note* Diagnosis Onset Date [...] delivery resolved Supervision of normal first resolved [facility] Work Phone: evaluation note* Diagnosis Onset Date Resolution Status PMDD (premenstrual dysphoric disorder) acute [facility] Work Phone: evaluation note* Diagnosis Onset Date Resolution Status PMDD (premenstrual dysphoric disorder) acute Anemia acute PMDD (premenstrual dysphoric disorder) acute acute Supervision of high-risk acute [facility] Work Phone: Evaluation note* Diagnosis Onset Date Resolution Status PMDD (premenstrual dysphoric disorder) acute Anemia acute PMDD (premenstrual dysphoric disorder) acute acute Supervision of high-risk acute Anemia acute PMDD (premenstrual dysphoric disorder) acute acute Supervision of high-risk acute [facility] Work Phone: Evaluation note* Diagnosis Onset Date Resolution Status Anemia acute PMDD (premenstrual dysphoric disorder) acute acute Supervision of high-risk acute Anemia acute PMDD (premenstrual dysphoric disorder) acute acute Supervision of high-risk acute Anemia acute Nausea and vomiting during acute PMDD (premenstrual dysphoric disorder) acute acute Supervision of high-risk acute [facility] Work Phone: Evaluation noteNo assessment information available [facility] Work Phone: Evaluation note* Diagnosis Onset Date [...] high-risk a cute July 07, 2024 2:38pm [facility] Work Phone: Hospital Discharge instructions Additional Instructions Follow-up with the FOOD SAFETY OFFICER in 2 weeks. Return with vaginal bleeding, increased pain, new or worsening symptoms. Start vitamins.[facility] Work Phone: Progress note Author Indiana Lazo [facility] Note Date/Time September 30, 2024 9:1 3am [facility] [address] [place] [address], [address] [place] [address] OFFICE VISIT Date of Service: 09/30/24 MR#: [id number] Acct: [id number] Name: LEONOR CAMACHO Rep #: [id number] : 1990 Provider: RICHIE Lazo Age/Sex: 33/F Location: [facility] [place] Status: Signed Intake Vital Signs 08/03/24 08:31 09/06/24 10:56 09/30/24 08:50 Height 5 ft 2 in 5 ft 2 in 5 ft 2 in Weight: 157 lb 159 lb 6 oz 162 lb 4 oz BMI 28.7 29.1 29.7 BP 126/84 H 117/77 124/82 H Intake Visit Reasons: 23wk ob Chief Complaint: 23wk OB 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 Chantelle Hyman Delivery Date: 04/09/21 Last [...] high risk , unspecified, second trimester Comment: [id number]; JERZY 01/26/25; PC: Alfred & Devang; : [...] by Indiana gusman CNM> Date _ Indiana Lzao CNM Cosigner Signature: Date (if applicable) CC: ~ [facility] Work Phone: Progress note Author John Sigalatings [facility] Note Date/Time December 05, 2024 8 :48am [facility] [place] [facility] [address], [address] [place] [address] OFFICE VISIT Date of Service: 12/05/24 MR#: [id number] Acct: [id number] Name: LEONOR CAMACHO Rep #: [id number] : 1990 Provider: JOSETTE Ariza Age/Sex: 34/F Location: [facility] [place] Status: Signed Intake Vital Signs 09/30/24 08:50 11/16/24 15:54 12/05/24 08:33 Height 5 ft 2 in 5 ft 2 in 5 ft 2 in Weight: 169 lb 5 oz BMI 30.9 BP 121/80 H Intake Visit Reasons: 32wk ob 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 Chantelle Hyman Delivery Date: 04/09/21 Last [...] high risk , unspecified, third trimester Comment: [id number]; JERZY 01/26/25; PC: Aden; : Boogie (2) [...] 0850 <Electronically signed by John Hasting s ASSISTANT SALES DIRECTOR ASSISTANT SALES DIRECTOR-C> Date _ John Ariza ASSISTANT SALES DIRECTOR ASSISTANT SALES DIRECTOR-C Cosigner Signature: Date (if applicable) CC: ~ [facility] Work Phone: Reason for referral (narrative)No reason for referral information availableWCoshocton [facility] Work Phone: Chief Complaint and [...] 26, 2024 3:45pm PCOS (polycystic ovarian syndrome) [facility] 2024 3:45pm October 26, 2024 3:45pm Supervision of high-risk [facility] 2024 3:45pm Chief Complaint Admit Date 15wk [...] 26, 2024 3:45pm PCOS (polycystic ovarian syndrome) [facility] 2024 3:45pm October 26, 2024 3:45pm Supervision of high-risk [facility] 2024 3:45pm History of delivery, currently November 16, 2024 3:47pm History of group B Streptococcus (GBS) i nfection November 16, 2024 3:47pm History of shoulder dystocia October 252024 3:47pm Lactating mother November 16, 2024 3:47pm PCOS (polycystic ovarian syndrome) [facility] 2024 3:47pm November 16, 2024 3:47pm Supervision of high-risk [facility] 2024 3:47pm Chief Complaint Admit Date 20 [...] October 262024 3:45pm PCOS (polycystic ovarian syndrome) [facility] 2024 3:45pm October 26, 2024 3:45pm Supervision of high-risk [facility] 2024 3:45pm Lactating mother October 26, 2024 3:45pm History of delivery, currently November 16, 2024 3:47pm History of group B Streptococcus (GBS) i nfection November 16, 2024 3:47pm History of shoulder dystocia October 252024 3:47pm PCOS (polycystic ovarian syndrome) [facility] 2024 3:47pm November 16, 2024 3:47pm Supervision of high-risk [facility] 2024 3:47pm Lactating mother November 16, 2024 [...] October 262024 3:45pm PCOS (polycystic ovarian syndrome) [facility] 2024 3:45pm October 26, 2024 3:45pm Supervision of high-risk [facility] 2024 3:45pm Lactating mother October 26, 2024 3:45pm History of group B Streptococcus (GBS) i nfection October 26, 2024 3:45pm History of delivery, currently November 16, 2024 3:47pm History of shoulder dystocia October 252024 3:47pm PCOS (polycystic ovarian syndrome) [facility] 2024 3:47pm November 16, 2024 3:47pm Supervision of high-risk [facility] 2024 3:47pm Lactating mother November 16, 2024 [...] dystocia December 3:49pm PCOS (polycystic ovarian syndrome) [facility] 2024 3:49pm December 26, 2024 3 :49pm Supervision of high-risk [facility] elieser 3rd, 2025 3:49pm Family History Relationship Condition Age at Onset Recorded Date/T meenakshi father Diabetes mellitus Unknown mother Hypertension Unknown grandfather Malignant neoplasm Unknown Advance Directives Advance Directive Response Recorded Date/ Time Living Will No April 09, 2 022 4:25pm Power of Pediatric Dentist No April 09, 2021 4:25pm Advance Directive Response Recorded Date/ Time Living Will No April 09, 2 022 3:25pm Power of Pediatric Dentist No April 09, 2021 3:25pm Advance Directive Response Recorded Date/ Time Living Will No June 07, 2024 4:28pm Do you have a Healthcare Power of Pediatric Dentist? No June 07, 2024 4:28pm Advance Directive Response Recorded Date/ Time Living Will No June 07, 2024 4:28pm Do you have a Healthcare Power of Pediatric Dentist? No June 07, 2024 4:28pm Do you have a Healthcare Power of Pediatric Dentist? No June 29, 2024 11:15pm Advance Directive Response Recorded Date/ Time Do you have a Healthcare Power of Pediatric Dentist? No June 29, 2024 11:15pm Summary Purpose [...] content) DATE CREATED AUTHOR 08/22/2022 [facility] DATE CREATED AUTHOR AUTHOR'S ORGANIZ ATION 02/26/2024 [facility] DATE CREATED AUTHOR AUTHOR'S ORGANIZ ATION 08/24/2024 [facility] DATE CREATED AUTHOR AUTHOR'S ORGANIZ ATION 09/03/2024 [facility] DATE CREATED AUTHOR AUTHOR'S ORGANIZ ATION 01/05/2025 [facility] Care Teams (unrecognized sec tion and content) [...] 2024 End: April 26, 2024 John Ariza ASSISTANT SALES DIRECTOR, ASSISTANT SALES DIRECTOR-C Attending Provider Active Start: April 26, 2024 End: April 26, 2024 John Ariza ASSISTANT SALES DIRECTOR, ASSISTANT SALES DIRECTOR-C Referring Provider Active Start: April 26, 2024 [...] 2024 End: August 03, 2024 John Ariza ASSISTANT SALES DIRECTOR, ASSISTANT SALES DIRECTOR-C Attending Provider Active Start: August 03, 2024 [...] Status: Inactive Member Role/Relationship Status Dates Dr. iMguel Gonzalez MD Primary Care Provider Active Start: August 03, 2024 End: August 03, 2024 Dr. Miguel Gonzalez MD Referring Provider Active Start: August 03, 2024 End: August 03, 2024 John Ariza ASSISTANT SALES DIRECTOR, ASSISTANT SALES DIRECTOR-C Attending Provider Active Start: August 03, 2024 [...] 2024 End: August 03, 2024 John Ariza ASSISTANT SALES DIRECTOR, ASSISTANT SALES DIRECTOR-C Attending Provider Active Start: August 03, 2024 [...] 2024 End: August 03, 2024 John Ariza ASSISTANT SALES DIRECTOR, ASSISTANT SALES DIRECTOR-C Attending physician Active Start: August 03, 2024 [...] 2024 End: December 05, 2024 John Ariza ASSISTANT SALES DIRECTOR, ASSISTANT SALES DIRECTOR-C Attending physician Active Start: December 05, 2024 [...] BE BASED ON THE PRIMARY CLINICAL RECORDS. [facility]. provides no warranty or guarantee of the accuracy or completeness of information in this document.
[2025-01-20] MEDS: fentaNYL 100 MCG/2 ML Ampul 90 MCG IV (08:05)
[2025-01-20] MEDS: Oxytocin 15 Units/NS 250ml 15 UNITS/250 ML IV.SOLN 83 UNITS IV (08:30)
[2025-01-20] MEDS: Ketorolac 30 MG/ML Syringe IV ×3 (09:04→21:06)
[2025-01-20] MEDS: Lactated Ringers 1,000 ML 100 ML IV (11:45)
--- NOTE | 2025-01-20 15:20 | NURSING ---
pt reports feeling nauseous and dizzy, RN will try to ambulate at next round
--- NOTE | 2025-01-20 16:00 | NURSING ---
Mother reports still being nauseous, requesting to stand at a later time. gown changed and becca pad changed, pt wiped down with bath wipes
--- NOTE | 2025-01-20 17:36 | NURSING ---
not up within the 8hours due to pt being dizzy earlier and nauseous
[2025-01-21] MEDS: 0.9% Saline Lock 10 ML Syringe IV ×2 (03:01→16:22)
[2025-01-21] MEDS: Ketorolac 30 MG/ML Syringe IV (03:01)
[2025-01-21 03:05] VITALS: BP 122/56; PULSE 88; RESP 16; TEMP 36.8; O2SAT 99
[2025-01-21 06:11] LABS: Hematocrit 24.7 % (37-47); Hemoglobin 7.5 g/dL (12.0-15.0); Mean Corp Hgb Conc 30.4 g/dL (32-36); Mean Corpuscular Volume 76.5 fL (81-99); Mean Platelet Vol. 12.6 fl (6.2-12.0); Platelet Count 150 K/mm3 (150-450); RBC Distribution Width CV 14.4 % (11.6-14.6); RBC Distribution Width SD 39.8 fl (35.1-43.9); Red Blood Count 3.23 M/mm3 (4.2-5.4); White Blood Count 14.9 K/mm3 (4.4-11.0)
[2025-01-21 08:41] VITALS: BP 114/81; PULSE 89; RESP 16; TEMP 36.7; O2SAT 99
[2025-01-21] MEDS: Senna/Docusate Sodium 1 Tablet PO (12:03)
[2025-01-21 12:42] LABS: Hematocrit 26.4 % (37-47); Hemoglobin 8.2 g/dL (12.0-15.0); Immature Granulocytes Count 0.070 X10^3/uL (0.0-0.0); Mean Corp Hgb Conc 31.1 g/dL (32-36); Mean Corpuscular Volume 76.3 fL (81-99); Mean Platelet Vol. 12.2 fl (6.2-12.0); NRBC Flagged by Analyzer 0 % (0-5); POSITIVE MORPHOLOGY YES; Platelet Count 158 K/mm3 (150-450); RBC Distribution Width CV 14.5 % (11.6-14.6); RBC Distribution Width SD 39.8 fl (35.1-43.9); Red Blood Count 3.46 M/mm3 (4.2-5.4); White Blood Count 13.5 K/mm3 (4.4-11.0)
[2025-01-21 13:12] LABS: Differential Comment SCANNED; Differential Indicated SCAN CRITERIA MET
[2025-01-21 13:13] LABS: Polychromasia RARE
--- NOTE | 2025-01-21 14:17 | PN.OBGYN_ITS ---
Subjective Subjective Calm, cooperative, resting comfortably in chair at bedside, spouse present & suppotive. Rating pain 2/10 - managable. Objective Data Objective Data Vital Signs: Vital Signs Temp Pulse Resp BP Pulse Ox O2 Del Method 98.1 F 89 16 114/81 H 99 Room Air 01/21/25 08:41 01/21/25 08:41 01/21/25 08:41 01/21/25 08:41 01/21/25 08:41 01/21/25 08:41 Oxygen Delivery Method Room Air Weight: 177 lb 14.609 oz Body Mass Index (BMI) 32.5 Intake & Output: Intake and Output for Last 24 Hours 01/19/25 01/20/25 01/21/25 23:59 23:59 23:59 Intake Total 2310 / 2310 Output Total 1200 / 1200 650 / 650 Balance 1110 / 1110 -650 / -650 Lab / Micro Data Attestation: I reviewed the patient's lab results. 01/21/25 12:35 Labs: Laboratory Results - last 24 hr 01/21/25 06:01: WBC 14.9 H, RBC 3.23 L, Hgb 7.5 L, Hct 24.7 L, MCV 76.5 L, MCH 23.2 L, MCHC 30.4 L D, RDW Std Deviation 39.8, RDW Coeff of Sukhjinder 14.4, Plt Count 150, MPV 12.6 H 01/21/25 12:35: WBC 13.5 H, RBC 3.46 L, Hgb 8.2 L, Hct 26.4 L, MCV 76.3 L, MCH 23.7 L, MCHC 31.1 L, RDW Std Deviation 39.8, RDW Coeff of Sukhjinder 14.5, Plt Count 158, MPV 12.2 H, Immature Gran % (Auto) 0.500, Neut % (Auto) 70.4 H, Lymph % (Auto) 22.6, [place] % (Auto) 5.9, Eos % (Auto) 0.4, Baso % (Auto) 0.2, Absolute Neuts (auto) 9.5 H, Absolute Lymphs (auto) 3.04, Nucleated RBC % 0, Differential Comment SCANNED, Polychromasia RARE ROS Constitutional Constitutional: Reports systems reviewed and no addt'l complaints, except as documented Cardiovascular Cardiovascular: Reports systems reviewed and no addt'l complaints, except as documented Respiratory/Chest Respiratory/Chest: Reports systems reviewed and no addt'l complaints, except as documented Gastrointestinal Gastrointestinal: Reports systems reviewed and no addt'l complaints, except as documented Genitourinary Genitourinary: Reports systems reviewed and no addt'l complaints, except as documented Psychiatric Psychiatric: Reports systems reviewed and no addt'l complaints, except as documented Physical Exam Const alert, oriented x3 and no apparent distress General Appearance: cooperative, comfortable, well kempt and well developed HEENT normocephalic Resp normal respiratory effort Resp Narrative: Respirations eased & unlabored. GI normal to inspection, nondistended, normoactive bowel sounds GI Narrative: reports positive flatus. Uterus Palpation: uterus fundus firm (u/1, small dark red lochia, no odor.) Skin Skin Narrative: LTCS wound dressing is dry & intact. Neuro oriented x3 Psych mental status grossly normal, thought process normal, cooperative, affect normal and speech normal Charges/Coding Multi Select Codes Urinary/Genital Urinary/Genital CPT Codes: No Charge Assessment & Plan (1) delivery delivered: COMMENT: RLTCS 39 (2) Anemia: COMMENT: 9.5/29.5 on admission, 8.2/26.4 today, pt reports feeling fatigued - desires IV iron today & iron supplementation PLAN: 1. IV Venofer 2. d/c home on prescription iron for 6 wks. PLAN: Plan s/p LTCS PPD # 1 1. routine post care 2. breast feeding- support given 3. rh positive 4. rubella immune 5. Anemia 6. D/C Home - tomorrow per pt request
[2025-01-21 14:50] VITALS: BP 117/72; PULSE 90; RESP 18; TEMP 37.1; O2SAT 99
[2025-01-21] MEDS: Iron Sucrose Complex 200 MG in 0.9% Normal Saline (100mL Bag) 100 ML 220 MG IV (16:22)
[2025-01-21 20:17] VITALS: BP 127/90; PULSE 95; RESP 16; TEMP 36.6; O2SAT 100
[2025-01-22 02:12] VITALS: BP 131/88; PULSE 88; RESP 14; TEMP 36.7; O2SAT 99
[2025-01-22] MEDS: Senna/Docusate Sodium 1 Tablet PO (08:07)
[2025-01-22 08:11] VITALS: BP 123/89; PULSE 85; RESP 16; TEMP 36.6
--- NOTE | 2025-01-22 08:26 | PCM.PN.CNM ---
Subjective Subjective Calm, cooperative, resting comfortably in bed. Desires d/c to home. Objective Data Objective Data Vital Signs: Vital Signs Temp Pulse Resp BP Pulse Ox O2 Del Method 98 F 85 16 123/89 H 99 Room Air 01/22/25 08:11 01/22/25 08:11 01/22/25 08:11 01/22/25 08:11 01/22/25 02:12 01/22/25 02:12 Oxygen Delivery Method Room Air Weight: 177 lb 14.609 oz Body Mass Index (BMI) 32.5 Intake & Output: Intake and Output for Last 24 Hours 01/20/25 01/21/25 01/22/25 23:59 23:59 23:59 Intake Total 2310 / 2310 110 / 110 Output Total 1200 / 1200 650 / 650 Balance 1110 / 1110 -540 / -540 Lab / Micro Data 01/21/25 12:35 Labs: Laboratory Results - last 24 hr 01/21/25 12:35: WBC 13.5 H, RBC 3.46 L, Hgb 8.2 L, Hct 26.4 L, MCV 76.3 L, MCH 23.7 L, MCHC 31.1 L, RDW Std Deviation 39.8, RDW Coeff of Sukhjinder 14.5, Plt Count 158, MPV 12.2 H, Immature Gran % (Auto) 0.500, Neut % (Auto) 70.4 H, Lymph % (Auto) 22.6, [place] % (Auto) 5.9, Eos % (Auto) 0.4, Baso % (Auto) 0.2, Absolute Neuts (auto) 9.5 H, Absolute Lymphs (auto) 3.04, Nucleated RBC % 0, Differential Comment SCANNED, Polychromasia RARE ROS Constitutional Constitutional: Reports systems reviewed and no addt'l complaints, except as documented Cardiovascular Cardiovascular: Reports systems reviewed and no addt'l complaints, except as documented Respiratory/Chest Respiratory/Chest: Reports systems reviewed and no addt'l complaints, except as documented Gastrointestinal Gastrointestinal: Reports systems reviewed and no addt'l complaints, except as documented Genitourinary Genitourinary: Reports systems reviewed and no addt'l complaints, except as documented Psychiatric Psychiatric: Reports systems reviewed and no addt'l complaints, except as documented Physical Exam Const alert, oriented x3 and no apparent distress General Appearance: cooperative, comfortable and well kempt HEENT normocephalic Resp normal respiratory effort and normal air movement Resp Narrative: Respirations eased & unlabored. GI normal to inspection, nondistended, normoactive bowel sounds GI Narrative: Abdomen soft, non-tender to touch. reports passing flatus. Uterus Palpation: uterus fundus firm (u/1 to u/2, small dark red lochia, no odor.) Skin Skin Narrative: LTCS wound dressing is dry & intact, no drainage noted. Neuro oriented x3 Psych mental status grossly normal, thought process normal, cooperative and affect normal Charges/Coding Multi Select Codes Urinary/Genital Urinary/Genital CPT Codes: No Charge Assessment & Plan (1) delivery delivered: COMMENT: RLTCS 39 (2) Anemia: COMMENT: 9.5/29.5 on admission, 8.2/26.4 today, pt reports feeling fatigued - desires IV iron today & iron supplementation PLAN: Plan s/p LTCS PPD # 2 1. routine post care 2. breast feeding- support given 3. rh positive 4. rubella immune 5. d/c home today
--- NOTE | 2025-01-22 08:27 | PCM.DC.SUM ---
Providers Date of Admission: 01/20/25 Primary Care Physician: Dr. Jenna Vigil MD Reason For Visit: C SECTION/CSECTION DELIVERY Diagnosis Discharge Diagnosis (1) delivery delivered: Status: Acute Code(s): O82 - Encounter for delivery without indication (2) Anemia: Status: Inactive Code(s): D64.9 - Anemia, unspecified Plan: 1. IV Venofer 2. d/c home on prescription iron for 6 wks. Plan s/p LTCS PPD # 2 1. routine post care 2. breast feeding- support given 3. rh positive 4. rubella immune 5. Anemia 6. D/C Home Medications at Discharge Home Medications naproxen 500 mg tablet 500 mg PO BID PRN PRN Pain #30 tabs 01/20/25 oxycodone-acetaminophen 5 mg-325 mg tablet (Percocet) 1 tab PO Q4H PRN pain 7 days #20 tabs 01/20/25 iron polysacch cplx 150 mg iron-vit B12 25 mcg-folic acid 1 mg capsule (Ferrex) 1 cap PO DAILY Anemia #30 caps 01/22/25 Hospital Course Operations - (Repeat Section. ) Physical Exam Const alert, oriented x3 and no apparent distress General Appearance: cooperative and comfortable Orientation / Consciousness: awake, oriented to person, oriented to place and oriented to time Resp normal respiratory effort and normal air movement Resp Narrative: Respirations eased & unlabored. No s/s of resp distress noted. GI GI Narrative: Soft, non-tender to touch. Reports passing flatus. Uterus Palpation: uterus fundus firm (Midline, u/1 to u/2, small dark red lochia, no odor.) Skin Skin Narrative: LTCS wound dressing dry & intact. Psych mental status grossly normal, thought process normal, cooperative, affect normal and speech normal Weight / BMI Weight Weight: 177 lb 14.609 oz Body Mass Index (BMI) 32.5 PRE- weight 157 lb PRE- Body Mass Index 28.8 (BMI) ABG / Lab / Microbiology Data 01/21/25 12:35 Laboratory: Laboratory Results - last 24 hr 01/21/25 12:35: WBC 13.5 H, RBC 3.46 L, Hgb 8.2 L, Hct 26.4 L, MCV 76.3 L, MCH 23.7 L, MCHC 31.1 L, RDW Std Deviation 39.8, RDW Coeff of Sukhjinder 14.5, Plt Count 158, MPV 12.2 H, Immature Gran % (Auto) 0.500, Neut % (Auto) 70.4 H, Lymph % (Auto) 22.6, [place] % (Auto) 5.9, Eos % (Auto) 0.4, Baso % (Auto) 0.2, Absolute Neuts (auto) 9.5 H, Absolute Lymphs (auto) 3.04, Nucleated RBC % 0, Differential Comment SCANNED, Polychromasia RARE D/C Instructions May shower in (days): 0 May resume sexual activity in: 4-6 weeks Weight Bearing Status: Full weight bearing Call your doctor if your incision/area has: Continuous Slow Oozing, Sudden Increased Bleeding, Increased Pain/ Swelling, Increased Redness and Foul Smelling Discharge Call your doctor if you observe: Fever of 101 or Higher, Using more than 1 pad per hour (for 2 hours), Shortness of breath, Dizziness, Swelling in the ankles and Chest pain Suture Line Care: Avoid Pulling/Pushing and Avoid Pinching/Bending Remove Dressing in: leave in place till F/U Cleanse incision/area with: Soap & Water and Keep Dressing Clean & Dry DC O2, CPAP, BIPAP Needs Home O2 Discharge instructions: No DC home with Oxygen: No Please Follow Up With: Cassandra Lockhart MD When: Call [phone] to make an appointment for an incision check in 1-2 weeks. Meaningful Use Info Meaningful Use Meaningful Use Diagnoses (Choose all that apply): None applicable Discharge Plan Admission Admit Date/Time: 01/20/25 07:12 Attending Provider: Cassandra Lockhart Primary Care Provider: Jenna Vigil Instructions Patient Instructions: After a Delivery (WP) Additional Instructions / Restrictions: Rest, relax & enjoy baby! Discharge Orders/Prescriptions Prescriptions: New oxycodone-acetaminophen [Percocet] 5-325 mg tablet 1 tab PO Q4H PRN (Reason: pain) 7 Days Qty: 20 0RF naproxen 500 mg tablet 500 mg PO BID PRN PRN (Reason: Pain) Qty: 30 1RF Ferrex 150 Forte 150-25-1 mg-mcg-mg capsule 1 cap PO DAILY Qty: 30 1RF Rx Instructions: Take daily w/Vit C. Avoid Calcium food/products 1 hour prior to & after taking Iron Referrals / Follow Up: Jenna Vigil MD [Primary Care Provider, Medical] Disposition Disposition (needs filled in before D/C Order can be placed): Home, Self Care Charges/Coding Multi Select Codes Urinary/Genital Urinary/Genital CPT Codes: No Charge
== END 2025-01-22 09:20 | disposition home or self-care (01) | DRG 788 ==
PROVIDERS: Admitting Provider Obstetrics & Gynecology; PCP Family Medicine; Referring Provider Obstetrics & Gynecology; Visit Provider Obstetrics & Gynecology
PROC: 10D00Z1 Extraction of Products of Conception, Low, Open Approach (ICD-10-PCS; CPT 59514; principal; 2025-01-20 07:00)
DX: O34.211 Maternal care for low transverse scar from previous cesarean delivery (principal); O99.02 Anemia complicating childbirth; Z37.0 Single live birth; Z3A.38 38 weeks gestation of pregnancy; Z87.59 Personal history of other complications of pregnancy, childbirth and the puerperium
CPT/HCPCS: 59025; 59050; 85025; 85027; 86780; 86850; 86900; 86901; 99221; J1756; A4216; G0378; J2405